=== PATIENT | female | born 1990 | race Caucasian/White ===

== ENCOUNTER 2017-07-20 23:15 | Emergency (ER) | payer MEDICAID ==
--- OUTSIDE RECORDS SUMMARY | 2017-07-20 23:17 | XMS REPORT ---
:1990 Author Organization [facility] Address [address] [place] [address] [address] [place] [address] Care Team Providers Name Role Phone Kiara MARTINES Unavailable Unavailable Problems This patient has no known problems. Allergies, Adverse Reactions, Alerts This patient has no known allergies or adverse reactions. Medications This patient has no known medications. Results Test Description Test Time Test Comments Text Results Atomic Results Result Comments HIV-1 ANTIGEN WITH HIV-1/2 ANTIBODY 2017-02-03 16:26:00 Test Item Value Reference Range Comments HIV-1 ANTIGEN WITH HIV 1\T\2 ANTIBODY (2) (BEAKER) (test Nonreactive Nonreactive eszj=3661) BASIC METABOLIC [id number] 06:30:00 Test Item Value Reference Range Comments SODIUM (BEAKER) (test 139 meq/L 136-145 qkeh=293) POTASSIUM (BEAKER) (test 3.8 meq/L 3.5-5.1 tpdw=449) CHLORIDE (BEAKER) (test 107 meq/L 98-107 bwae=153) CO2 (BEAKER) (test 26 meq/L 22-29 dxfj=257) BLOOD UREA NITROGEN 11 mg/dL 7-21 (BEAKER) (test gjuf=965) CREATININE (BEAKER) (test 0.65 mg/dL 0.57-1.25 itex=551) GLUCOSE RANDOM (BEAKER) 98 mg/dL 70-105 (test sjch=559) CALCIUM (BEAKER) (test 8.7 mg/dL 8.4-10.2 tqht=981) EGFR (BEAKER) (test mL/min/1.73 sq m INSUFFICIENT CLINICAL DATA nhds=7252) TO CALCULATE ESTIMATED GFR. [id number] 06:19:00 Test Item Value Reference Range Comments PHOSPHORUS (BEAKER) (test tovn=105) 1.9 mg/dL 2.3-4.7 [id number] 06:19:00 Test Item Value Reference Range Comments MAGNESIUM (BEAKER) (test ztvl=773) 1.8 mg/dL 1.6-2.6 HEPATIC FUNCTION [id number] 06:19:00 Test Item Value Reference Range Comments TOTAL PROTEIN (BEAKER) (test mvnq=221) 6.2 gm/dL 6.0-8.3 ALBUMIN (BEAKER) (test cpgh=9369) 3.6 g/dL 3.5-5.0 BILIRUBIN TOTAL (BEAKER) (test akjf=074) 0.7 mg/dL 0.2-1.2 BILIRUBIN DIRECT (BEAKER) (test eorv=859) 0.3 mg/dL 0.1-0.5 ALKALINE PHOSPHATASE (BEAKER) (test ajau=982) 93 U/L 40-150 AST (SGOT) (BEAKER) (test ffzy=256) 10 U/L 5-34 ALT (SGPT) (BEAKER) (test ocuy=325) 7 U/L 6-55 CBC W/PLT COUNT & AUTO [id number] 06:11:00 Test Item Value Reference Range Comments WHITE BLOOD CELL COUNT (BEAKER) (test vyhj=822) 6.9 K/ L 3.5-10.5 RED BLOOD CELL COUNT (BEAKER) (test pxar=686) 3.92 M/ L 3.93-5.22 HEMOGLOBIN (BEAKER) (test moby=587) 11.9 GM/DL 11.2-15.7 HEMATOCRIT (BEAKER) (test ccnp=423) 35.7 % 34.1-44.9 MEAN CORPUSCULAR VOLUME (BEAKER) (test ajhg=575) 91.1 fL 79.4-94.8 MEAN CORPUSCULAR HEMOGLOBIN (BEAKER) (test 30.4 pg 25.6-32.2 eskm=338) MEAN CORPUSCULAR HEMOGLOBIN CONC (BEAKER) (test 33.3 GM/DL 32.2-35.5 epah=989) RED CELL DISTRIBUTION WIDTH (BEAKER) (test 12.3 % 11.7-14.4 udzc=989) PLATELET COUNT (BEAKER) (test zaqw=165) 204 K/CU MM 150-450 MEAN PLATELET VOLUME (BEAKER) (test rohf=682) 11.2 fL 9.4-12.3 NUCLEATED RED BLOOD CELLS (BEAKER) (test 0 /100 WBC 0-0 qxje=950) NEUTROPHILS RELATIVE PERCENT (BEAKER) (test 72 % lscp=037) LYMPHOCYTES RELATIVE PERCENT (BEAKER) (test 21 % oezw=447) MONOCYTES RELATIVE PERCENT (BEAKER) (test 6 % upzs=986) EOSINOPHILS RELATIVE PERCENT (BEAKER) (test 1 % pvpi=519) BASOPHILS RELATIVE PERCENT (BEAKER) (test 0 % swmq=090) NEUTROPHILS ABSOLUTE COUNT (BEAKER) (test 5.00 K/ L 1.56-6.13 juou=201) LYMPHOCYTES ABSOLUTE COUNT (BEAKER) (test 1.44 K/ L 1.18-3.74 yvgv=593) MONOCYTES ABSOLUTE COUNT (BEAKER) (test 0.39 K/ L 0.24-0.36 pdtm=773) EOSINOPHILS ABSOLUTE COUNT (BEAKER) (test 0.07 K/ L 0.04-0.36 ukik=550) BASOPHILS ABSOLUTE COUNT (BEAKER) (test 0.02 K/ L 0.01-0.08 kydn=047) IMMATURE GRANULOCYTES-RELATIVE PERCENT (BEAKER) 0 % 0-1 (test auvm=2025) BASIC METABOLIC [id number] 10:11:00 Test Item Value Reference Range Comments SODIUM (BEAKER) (test 136 meq/L 136-145 nyto=276) POTASSIUM (BEAKER) (test 3.2 meq/L 3.5-5.1 rcrw=153) CHLORIDE (BEAKER) (test 107 meq/L 98-107 ymgv=578) CO2 (BEAKER) (test 25 meq/L 22-29 qrvo=390) BLOOD UREA NITROGEN 7 mg/dL 7-21 (BEAKER) (test rwih=818) CREATININE (BEAKER) (test 0.62 mg/dL 0.57-1.25 dzbf=874) GLUCOSE RANDOM (BEAKER) 106 mg/dL 70-105 (test hjci=067) CALCIUM (BEAKER) (test 8.9 mg/dL 8.4-10.2 keqi=872) EGFR (BEAKER) (test mL/min/1.73 sq m INSUFFICIENT CLINICAL DATA iuct=0114) TO CALCULATE ESTIMATED GFR. [id number] 09:56:00 Test Item Value Reference Range Comments PHOSPHORUS (BEAKER) (test zlna=500) 1.6 mg/dL 2.3-4.7 [id number] 09:56:00 Test Item Value Reference Range Comments MAGNESIUM (BEAKER) (test huad=483) 2.0 mg/dL 1.6-2.6 HEPATIC FUNCTION [id number] 09:56:00 Test Item Value Reference Range Comments TOTAL PROTEIN (BEAKER) (test fpok=037) 6.3 gm/dL 6.0-8.3 ALBUMIN (BEAKER) (test fdds=0182) 3.7 g/dL 3.5-5.0 BILIRUBIN TOTAL (BEAKER) (test bcej=237) 1.4 mg/dL 0.2-1.2 BILIRUBIN DIRECT (BEAKER) (test iztq=667) 0.6 mg/dL 0.1-0.5 ALKALINE PHOSPHATASE (BEAKER) (test ixzw=618) 97 U/L 40-150 AST (SGOT) (BEAKER) (test oixh=257) 10 U/L 5-34 ALT (SGPT) (BEAKER) (test moty=950) 8 U/L 6-55 CBC W/PLT COUNT & AUTO [id number] 09:53:00 Test Item Value Reference Range Comments WHITE BLOOD CELL COUNT (BEAKER) (test jhrw=728) 9.0 K/ L 3.5-10.5 RED BLOOD CELL COUNT (BEAKER) (test bein=586) 3.90 M/ L 3.93-5.22 HEMOGLOBIN (BEAKER) (test rqih=942) 11.8 GM/DL 11.2-15.7 HEMATOCRIT (BEAKER) (test sdgn=481) 35.5 % 34.1-44.9 MEAN CORPUSCULAR VOLUME (BEAKER) (test gzeg=950) 91.0 fL 79.4-94.8 MEAN CORPUSCULAR HEMOGLOBIN (BEAKER) (test 30.3 pg 25.6-32.2 nonf=754) MEAN CORPUSCULAR HEMOGLOBIN CONC (BEAKER) (test 33.2 GM/DL 32.2-35.5 hcyk=685) RED CELL DISTRIBUTION WIDTH (BEAKER) (test 12.0 % 11.7-14.4 jvmt=912) PLATELET COUNT (BEAKER) (test zzua=314) 212 K/CU MM 150-450 MEAN PLATELET VOLUME (BEAKER) (test drsp=499) 10.8 fL 9.4-12.3 NUCLEATED RED BLOOD CELLS (BEAKER) (test 0 /100 WBC 0-0 okkb=870) NEUTROPHILS RELATIVE PERCENT (BEAKER) (test 69 % paht=897) LYMPHOCYTES RELATIVE PERCENT (BEAKER) (test 24 % ytpj=910) MONOCYTES RELATIVE PERCENT (BEAKER) (test 5 % sywd=585) EOSINOPHILS RELATIVE PERCENT (BEAKER) (test 1 % qeti=629) BASOPHILS RELATIVE PERCENT (BEAKER) (test 0 % leve=381) NEUTROPHILS ABSOLUTE COUNT (BEAKER) (test 6.21 K/ L 1.56-6.13 gzpu=530) LYMPHOCYTES ABSOLUTE COUNT (BEAKER) (test 2.19 K/ L 1.18-3.74 hdgj=443) MONOCYTES ABSOLUTE COUNT (BEAKER) (test 0.49 K/ L 0.24-0.36 yrbd=782) EOSINOPHILS ABSOLUTE COUNT (BEAKER) (test 0.08 K/ L 0.04-0.36 xpff=139) BASOPHILS ABSOLUTE COUNT (BEAKER) (test 0.03 K/ L 0.01-0.08 kurd=347) IMMATURE GRANULOCYTES-RELATIVE PERCENT (BEAKER) 0 % 0-1 (test dakm=9586)
--- NOTE | 2017-07-20 23:48 | EDPHYS ---
Physician Documentation [facility] Name: Elle Man Age: 27 yrs Sex: Female : 1990 Arrival Date: 07/20/2017 Time: 23:16 Bed 19 Private MD: ED Physician Ashish Naik HPI: 07/20 23:42 This 27 yrs old Female presents to ER via Ambulatory with complaints of Sore pkl Throat. 23:42 The patient presents with sore throat. The patient describes throat pain as constant. pkl Onset: The symptoms/episode began/occurred 2 day(s) ago. The patient has been recently seen by a physician: in [facility] ER, yesterday. Patient said she is not better. 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 - Social history:: Smoking status: Patient/guardian denies using tobacco. ROS: 23:42 Eyes: Negative for injury, pain, redness, and discharge. pkl 23:42 ENT: Positive for sore throat. 23:42 Neck: Negative for stiffness. 23:42 Cardiovascular: Negative for chest pain. 23:42 Respiratory: Negative for cough, shortness of breath. 23:42 Abdomen/GI: Negative for abdominal pain, nausea, vomiting, and diarrhea. 23:42 Back: Negative for acute changes. 23:42 : Negative for urinary symptoms. 23:42 MS/extremity: Negative for acute changes. 23:42 Skin: Negative for rash. 23:42 Neuro: Negative for altered mental status. Exam: 23:42 Head/Face: Normocephalic, atraumatic. Eyes: Pupils equal round and reactive to light, pkl extra-ocular motions intact. Lids and lashes normal. Conjunctiva and sclera are non-icteric and not injected. Cornea within normal limits. Periorbital areas with no swelling, redness, or edema. 23:42 ENT: Posterior pharynx: Tonsils: bilaterally enlarged, with erythema. 23:42 Neck: Exam negative for acute changes. 23:42 Chest/axilla: Exam negative for acute changes. 23:42 Cardiovascular: Rate: normal, Rhythm: regular. 23:42 Respiratory: the patient does not display signs of respiratory distress, Respirations: normal, Breath sounds: are clear throughout. 23:42 Abdomen/GI: Exam negative for acute changes. 23:42 Back: Exam negative for acute changes. 23:42 : Exam negative for acute changes. 23:42 Musculoskeletal/extremity: Exam is negative for acute changes. 23:42 Skin: Exam negative for rash. 23:42 Neuro: Orientation: is normal, Mentation: is normal, Cranial nerves: grossly normal, Motor: is normal. Vital Signs: 23:27 BP 131 / 85; Pulse 75; Resp 18; Temp 98.1(O); Pulse Ox 97% on R/A; Weight 119.29 kg (R); Height 5 ft. 11 in. (180.34 cm) (R); Pain 10/10; 07/21 00:09 BP 113 / 69; Pulse 75; Resp 18; Pulse Ox 96% on R/A; wh 07/20 23:27 Body Mass Index 36.68 (119.29 kg, 180.34 cm) MDM: 07/20 23:35 Patient medically screened. pkl 23:46 Data reviewed: vital signs, nurses notes. pkl Administered Medications: 23:55 Drug: Rocephin (cefTRIAXone) 1 grams Route: IM; Site: right gluteus; 07/21 00:09 Follow up: Response: No adverse reaction Disposition: 07/20/17 23:47 Discharged to Home. Impression: Acute tonsillitis. - Condition is Stable. - Prescriptions for Ultram 50 mg Oral Tablet - take 1 tablet by ORAL route every 8 hours As needed; 15 tablet. - Medication Reconciliation Form, Thank You Letter, Antibiotic Education, Prescription Opioid Use form. - Follow up: Debo Navarro MD; When: 2 - 3 days; Reason: Re-evaluation by your physician. - Problem is new. - Symptoms are unchanged. Signatures: Ashish Naik MD MD pkl Tawana Horta RN RN Kelby Nieto
--- NOTE | 2017-07-20 23:48 | ER ---
Nurse's Notes [facility] Name: Elle Man Age: 27 yrs Sex: Female : 1990 Arrival Date: 07/20/2017 Time: 23:16 Bed 19 Private MD: Diagnosis: Acute tonsillitis Presentation: 07/20 23:24 Presenting complaint: Patient states: that yesterday was seen at [facility] in [place] for sore throat. Was told she had swollen tonsils with pus on them but negative strep. Given Amoxicillin. Pain is worse today to throat. She is unable to swallow and it hurts to talk. Also has fever. Transition of care: patient was not received from another setting of care. Onset of symptoms was July 18, 2017. Care prior to arrival: Medication(s) given: Tylenol, last at 2200. 23:24 Acuity: LAYTON 5 23:24 Method Of Arrival: Ambulatory Triage Assessment: 23:30 General: Appears comfortable, Behavior is calm, cooperative, appropriate for age. Pain: fc Complains of pain in throat Pain currently is 10 out of 10 on a pain scale. Quality of pain is described as burning, dull, Pain began 2-3 days ago. Is continuous, Aggravated by drinking. EENT: Throat is reddened has patchy exudate has enlarged tonsils on right on left Reports difficulty swallowing. Neuro: Level of Consciousness is awake, alert, obeys commands, Oriented to person, place, time, situation. Cardiovascular: No deficits noted. Respiratory: No deficits noted. GI: No deficits noted. : No deficits noted. Derm: Skin is pink, warm \T\ dry. Musculoskeletal: Circulation, motion, and sensation intact. Capillary refill < 3 seconds, Range of motion: intact in all extremities. 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 - Social history:: Smoking status: Patient/guardian denies using tobacco. Screenin/27 00:02 Abuse screen: Denies threats or abuse. Nutritional screening: No deficits noted. wh Tuberculosis screening: No symptoms or risk factors identified. Fall Risk None identified. Assessment: 07/20 23:58 General: Appears in no apparent distress. comfortable, Behavior is calm, cooperative, wh appropriate for age. Pain: Denies pain. Neuro: Level of Consciousness is awake, alert, obeys commands, Oriented to person, place, time, situation. Cardiovascular: Denies chest pain, Heart tones S1 S2 Capillary refill < 3 seconds. Respiratory: Airway is patent Respiratory effort is even, unlabored, Respiratory pattern is regular, symmetrical, Breath sounds are clear bilaterally. GI: Abdomen is round non-distended, Abd is soft and non tender X 4 quads. : No signs and/or symptoms were reported regarding the genitourinary system. EENT: Throat is pink Pt C/O sore throat since a few days accompanied with fever, was already seen in another facility and started on oral antibiotics. Derm: Skin is intact, is healthy with good turgor, Skin is pink, warm \T\ dry. Musculoskeletal: Range of motion: intact in all extremities. Vital Signs: 23: BP 131 / 85; Pulse 75; Resp 18; Temp 98.1(O); Pulse Ox 97% on R/A; Weight 119.29 kg fc (R); Height 5 ft. 11 in. (180.34 cm) (R); Pain 10/10; 07/21 00:09 BP 113 / 69; Pulse 75; Resp 18; Pulse Ox 96% on R/A; wh 07/20 23:27 Body Mass Index 36.68 (119.29 kg, 180.34 cm) ED Course: 07/20 23:16 Patient arrived in ED. am2 23:26 Triage completed. fc 23:27 Arm band placed on Patient placed in an exam room, on a stretcher. fc 23:34 Ashish Naik MD is Attending Physician. pkl 23:44 Kelby Nieto is Primary Nurse. wh 23:46 Debo Navarro MD is Referral Physician. pkl 07/21 00:02 Patient has correct armband on for positive identification. Patient has correct armband wh on for positive identification. Bed in low position. Call light in reach. Side rails up X 1. Pulse ox on. NIBP on. 00:02 No provider procedures requiring assistance completed. Patient did not have IV access wh during this emergency room visit. Administered Medications: 07/20 23:55 Drug: Rocephin (cefTRIAXone) 1 grams Route: IM; Site: right gluteus; 07/21 00:09 Follow up: Response: No adverse reaction Outcome: 07/20 23:47 Discharge ordered by . coleman 07/21 00:02 Discharged to home ambulatory. Condition: good Discharge instructions given to patient, Instructed on discharge instructions, follow up and referral plans. no drinking with medication, no driving heavy equipment, medication usage, POC Acute Tonsillitis Demonstrated understanding of instructions, follow-up care, medications, POC Prescriptions given X 1. 00:10 Patient left the ED. Signatures: Ashish Naik MD MD pkl Chretien, Felicia, RN RN Kathleen Vásquez Winsy
[2017-07-21] MEDS ORDERED: CEFTRIAXONE 1000 MG/VIAL ONE (00:06)
[2017-07-21 00:32] VITALS: TEMP 98.1
[2017-07-21 00:34] VITALS: BP 113/69; O2SAT 96
== END 2017-07-21 00:10 | disposition home or self-care (01) ==
LOC: ER 23:15
DX: J03.90 Acute tonsillitis, unspecified
CPT/HCPCS: 96372; 99283

== ENCOUNTER 2017-11-02 11:02 | Inpatient (IN) | payer MEDICAID ==
--- OUTSIDE RECORDS SUMMARY | 2017-11-02 11:05 | XMS REPORT | Clinical Summary ---
:1990 Author Organization [facility] Address [address] [place] [address] Phone Care Team Providers Name Role Phone Unavailable Primary Care Provider Unavailable Allergies No Known Allergies Current Medications Prescription Sig. Disp. Refills Start Date End Date Status acetaminophen Take 2 30 tablet 0 02/04/2017 01/30/2018 Active (TYLENOL) 325 MG tablets (650 tablet mg total) by mouth every 4 (four) hours as needed for up to 360 days. acetaminophen Take 2 30 tablet 0 02/04/2017 02/04/2017 Discontinued (TYLENOL) 325 MG tablets (650 tablet mg total) by mouth every 4 (four) hours as needed for up to 360 days. ondansetron Take 1 tablet 20 tablet 0 02/04/2017 02/04/2017 Discontinued (ZOFRAN-ODT) 4 MG (4 mg total) disintegrating by mouth tablet every 8 (eight) hours as needed for up to 7 days. amitriptyline Take 1 tablet 30 tablet 0 02/04/2017 02/04/2017 Discontinued (ELAVIL) 25 MG (25 mg total) tablet by mouth nightly for 30 days. ondansetron Take 1 tablet 20 tablet 0 02/04/2017 02/11/2017 (ZOFRAN-ODT) 4 MG (4 mg total) disintegrating by mouth tablet every 8 (eight) hours as needed for up to 7 days. amitriptyline Take 1 tablet 30 tablet 0 02/04/2017 03/06/2017 (ELAVIL) 25 MG (25 mg total) tablet by mouth nightly for 30 days. Active Problems Problem Noted Date Hypokalemia 02/03/2017 Headache 02/03/2017 Elevated LFTs 02/03/2017 Aseptic meningitis 02/01/2017 Encounters Date Type Specialty Care Team Description 02/01/2017 - Hospital General Internal Mona Doherty, Aseptic 02/04/2017 Encounter Medicine meningitis;Elevated Mansoor Ordaz LFTs;Other headache MD Jona syndrome;Hypokalemi Bethany, Jae Castro MD after 11/01/2016 Social History Tobacco Use Types Packs/Day Years Used Date Never Smoker Smokeless Tobacco: Never Used Sex Assigned at Date Recorded Not on file Last Filed Vital Signs Vital Sign Reading Time Taken Blood Pressure 127/72 02/04/2017 11:52 AM CDT Pulse 90 02/04/2017 11:52 AM CDT Temperature 36 C (96.8 F) 02/04/2017 11:52 AM CDT Respiratory Rate 18 02/04/2017 11:52 AM CDT Oxygen Saturation 96% 02/04/2017 11:52 AM CDT Inhaled Oxygen Concentration - - Weight 115.1 kg (253 lb 11.2 oz) 02/01/2017 11:34 PM CDT Height 180.3 cm (5' 11") 02/01/2017 11:34 PM CDT Body Mass Index 35.38 02/01/2017 11:34 PM CDT Plan of Treatment Not on file Results HIV-1 Antigen with HIV-1/2 Antibody (02/03/2017 1:57 PM) Component Value Ref Range HIV-1 Antigen with HIV 1&2 Antibody Nonreactive Nonreactive Specimen Performing Laboratory Blood - Arm, Left [facility] [address] [place] [id number] CBC with platelet count + automated diff (02/03/2017 5:12 AM)Only the most recent of2 resultswithin the time period is included. Component Value Ref Range WBC 6.9 3.5 - 10.5 K/L RBC 3.92 (L) 3.93 - 5.22 M/L Hemoglobin 11.9 11.2 - 15.7 GM/DL Hematocrit 35.7 34.1 - 44.9 % MCV 91.1 79.4 - 94.8 fL MCH 30.4 25.6 - 32.2 pg MCHC 33.3 32.2 - 35.5 GM/DL RDW 12.3 11.7 - 14.4 % Platelets 204 150 - 450 K/CU MM MPV 11.2 9.4 - 12.3 fL nRBC 0 0 - 0 /100 WBC % Neutros 72 % % Lymphs 21 % % Monos 6 % % Eos 1 % % Baso 0 % # Neutros 5.00 1.56 - 6.13 K/L # Lymphs 1.44 1.18 - 3.74 K/L # Monos 0.39 (H) 0.24 - 0.36 K/L # Eos 0.07 0.04 - 0.36 K/L # Baso 0.02 0.01 - 0.08 K/L Immature Granulocytes-Relative 0 0 - 1 % Specimen Performing Laboratory Blood - Arm, [address] [address] CBC with platelet count + automated diff (02/03/2017 5:12 AM)Only the most recent of2 resultswithin the time period is included. Specimen Performing Laboratory Blood Narrative The following orders were created for panel order CBC with platelet count + automated diff. Procedure Abnormality Status --------- ------ CBC with platelet count ...[[id number]]AbnormalFinal result Please view results for these tests on the individual orders. Phosphorus (02/03/2017 5:12 AM)Only the most recent of2 resultswithin the time period is included. Component Value Ref Range Phosphorus 1.9 (L) 2.3 - 4.7 mg/dL Specimen Performing Laboratory Blood - Arm, [address] [address] Magnesium (02/03/2017 5:12 AM)Only the most recent of2 resultswithin the time period is included. Component Value Ref Range Magnesium 1.8 1.6 - 2.6 mg/dL Specimen Performing Laboratory Blood - Arm, [address] [address] Hepatic function panel (02/03/2017 5:12 AM)Only the most recent of2 resultswithin the time period is included. Component Value Ref Range Protein, Total 6.2 6.0 - 8.3 gm/dL Albumin 3.6 3.5 - 5.0 g/dL Total Bilirubin 0.7 0.2 - 1.2 mg/dL Bilirubin, Direct 0.3 0.1 - 0.5 mg/dL Alkaline Phosphatase 93 40 - 150 U/L AST 10 5 - 34 U/L ALT 7 6 - 55 U/L Specimen Performing Laboratory Blood - Arm, [address] [address] Basic metabolic panel (02/03/2017 5:12 AM)Only the most recent of2 resultswithin the time period is included. Component Value Ref Range Sodium 139 136 - 145 meq/L Potassium 3.8 3.5 - 5.1 meq/L Chloride 107 98 - 107 meq/L CO2 26 22 - 29 meq/L BUN 11 7 - 21 mg/dL Creatinine 0.65 0.57 - 1.25 mg/dL Glucose 98 70 - 105 mg/dL Calcium 8.7 8.4 - 10.2 mg/dL EGFR Comment: INSUFFICIENT CLINICAL DATA TO CALCULATE mL/min/1.73 sq m ESTIMATED GFR. Specimen Performing Laboratory Blood - Arm, [address] [address] after 11/01/2016
--- OUTSIDE RECORDS SUMMARY | 2017-11-02 11:05 | XMS REPORT ---
:1990 Author Organization [facility] Address [address] [place] [place] [id number] Care Team Providers Name Role Phone BLAYNE MARTINES Unavailable Unavailable Problems This patient has [...] 1\T\2 ANTIBODY (2) (BEAKER) (test Nonreactive Nonreactive jamk=9240) BASIC METABOLIC [id number] 06:30:00 Test Item Value Reference Range Comments SODIUM (BEAKER) (test 139 meq/L 136-145 bqlp=106) POTASSIUM (BEAKER) (test 3.8 meq/L 3.5-5.1 yivl=017) CHLORIDE (BEAKER) (test 107 meq/L 98-107 itfy=364) CO2 (BEAKER) (test 26 meq/L 22-29 dhxo=941) BLOOD UREA NITROGEN 11 mg/dL 7-21 (BEAKER) (test xktw=872) CREATININE (BEAKER) (test 0.65 mg/dL 0.57-1.25 taem=022) GLUCOSE RANDOM (BEAKER) 98 mg/dL 70-105 (test jpbc=529) CALCIUM (BEAKER) (test 8.7 mg/dL 8.4-10.2 zbyd=856) EGFR (BEAKER) (test mL/min/1.73 sq m INSUFFICIENT CLINICAL DATA omtt=9295) TO CALCULATE ESTIMATED GFR. [id number] 06:19:00 Test Item Value Reference Range Comments PHOSPHORUS (BEAKER) (test ucdj=773) 1.9 mg/dL 2.3-4.7 [id number] 06:19:00 Test Item Value Reference Range Comments MAGNESIUM (BEAKER) (test agyf=401) 1.8 mg/dL 1.6-2.6 HEPATIC FUNCTION [id number] 06:19:00 Test Item Value Reference Range Comments TOTAL PROTEIN (BEAKER) (test gkry=146) 6.2 gm/dL 6.0-8.3 ALBUMIN (BEAKER) (test myin=0772) 3.6 g/dL 3.5-5.0 BILIRUBIN TOTAL (BEAKER) (test qtal=287) 0.7 mg/dL 0.2-1.2 BILIRUBIN DIRECT (BEAKER) (test galy=729) 0.3 mg/dL 0.1-0.5 ALKALINE PHOSPHATASE (BEAKER) (test czmg=938) 93 U/L 40-150 AST (SGOT) (BEAKER) (test rhrc=860) 10 U/L 5-34 ALT (SGPT) (BEAKER) (test kfji=151) 7 U/L 6-55 CBC W/PLT COUNT & AUTO [id number] 06:11:00 Test Item Value Reference Range Comments WHITE BLOOD CELL COUNT (BEAKER) (test eieh=925) 6.9 K/ L 3.5-10.5 RED BLOOD CELL COUNT (BEAKER) (test xwjo=242) 3.92 M/ L 3.93-5.22 HEMOGLOBIN (BEAKER) (test wnkf=199) 11.9 GM/DL 11.2-15.7 HEMATOCRIT (BEAKER) (test ivxt=990) 35.7 % 34.1-44.9 MEAN CORPUSCULAR VOLUME (BEAKER) (test cwjo=071) 91.1 fL 79.4-94.8 MEAN CORPUSCULAR HEMOGLOBIN (BEAKER) (test 30.4 pg 25.6-32.2 vhkt=192) MEAN CORPUSCULAR HEMOGLOBIN CONC (BEAKER) (test 33.3 GM/DL 32.2-35.5 sdra=321) RED CELL DISTRIBUTION WIDTH (BEAKER) (test 12.3 % 11.7-14.4 ugse=472) PLATELET COUNT (BEAKER) (test rqrn=809) 204 K/CU MM 150-450 MEAN PLATELET VOLUME (BEAKER) (test lonl=283) 11.2 fL 9.4-12.3 NUCLEATED RED BLOOD CELLS (BEAKER) (test 0 /100 WBC 0-0 dhig=196) NEUTROPHILS RELATIVE PERCENT (BEAKER) (test 72 % lqly=992) LYMPHOCYTES RELATIVE PERCENT (BEAKER) (test 21 % dazl=943) MONOCYTES RELATIVE PERCENT (BEAKER) (test 6 % kcbz=126) EOSINOPHILS RELATIVE PERCENT (BEAKER) (test 1 % nxed=135) BASOPHILS RELATIVE PERCENT (BEAKER) (test 0 % lvnt=758) NEUTROPHILS ABSOLUTE COUNT (BEAKER) (test 5.00 K/ L 1.56-6.13 fsqu=419) LYMPHOCYTES ABSOLUTE COUNT (BEAKER) (test 1.44 K/ L 1.18-3.74 rnpi=081) MONOCYTES ABSOLUTE COUNT (BEAKER) (test 0.39 K/ L 0.24-0.36 rbsw=041) EOSINOPHILS ABSOLUTE COUNT (BEAKER) (test 0.07 K/ L 0.04-0.36 vkss=588) BASOPHILS ABSOLUTE COUNT (BEAKER) (test 0.02 K/ L 0.01-0.08 oenj=903) IMMATURE GRANULOCYTES-RELATIVE PERCENT (BEAKER) 0 % 0-1 (test staj=9353) BASIC METABOLIC [id number] 10:11:00 Test Item Value Reference Range Comments SODIUM (BEAKER) (test 136 meq/L 136-145 ochj=120) POTASSIUM (BEAKER) (test 3.2 meq/L 3.5-5.1 irdx=230) CHLORIDE (BEAKER) (test 107 meq/L 98-107 xtbs=703) CO2 (BEAKER) (test 25 meq/L 22-29 tqvy=193) BLOOD UREA NITROGEN 7 mg/dL 7-21 (BEAKER) (test mjjg=399) CREATININE (BEAKER) (test 0.62 mg/dL 0.57-1.25 lgtk=134) GLUCOSE RANDOM (BEAKER) 106 mg/dL 70-105 (test lcan=525) CALCIUM (BEAKER) (test 8.9 mg/dL 8.4-10.2 ouzj=301) EGFR (BEAKER) (test mL/min/1.73 sq m INSUFFICIENT CLINICAL DATA evlu=2654) TO CALCULATE ESTIMATED GFR. [id number] 09:56:00 Test Item Value Reference Range Comments PHOSPHORUS (BEAKER) (test afli=054) 1.6 mg/dL 2.3-4.7 [id number] 09:56:00 Test Item Value Reference Range Comments MAGNESIUM (BEAKER) (test brnu=992) 2.0 mg/dL 1.6-2.6 HEPATIC FUNCTION [id number] 09:56:00 Test Item Value Reference Range Comments TOTAL PROTEIN (BEAKER) (test njtv=937) 6.3 gm/dL 6.0-8.3 ALBUMIN (BEAKER) (test smcw=9969) 3.7 g/dL 3.5-5.0 BILIRUBIN TOTAL (BEAKER) (test qmlt=459) 1.4 mg/dL 0.2-1.2 BILIRUBIN DIRECT (BEAKER) (test rzlb=764) 0.6 mg/dL 0.1-0.5 ALKALINE PHOSPHATASE (BEAKER) (test kkjc=549) 97 U/L 40-150 AST (SGOT) (BEAKER) (test vjsz=324) 10 U/L 5-34 ALT (SGPT) (BEAKER) (test cfaf=531) 8 U/L 6-55 CBC W/PLT COUNT & AUTO [id number] 09:53:00 Test Item Value Reference Range Comments WHITE BLOOD CELL COUNT (BEAKER) (test erlh=513) 9.0 K/ L 3.5-10.5 RED BLOOD CELL COUNT (BEAKER) (test vnvw=363) 3.90 M/ L 3.93-5.22 HEMOGLOBIN (BEAKER) (test wtod=020) 11.8 GM/DL 11.2-15.7 HEMATOCRIT (BEAKER) (test qdem=335) 35.5 % 34.1-44.9 MEAN CORPUSCULAR VOLUME (BEAKER) (test ttac=193) 91.0 fL 79.4-94.8 MEAN CORPUSCULAR HEMOGLOBIN (BEAKER) (test 30.3 pg 25.6-32.2 eicj=814) MEAN CORPUSCULAR HEMOGLOBIN CONC (BEAKER) (test 33.2 GM/DL 32.2-35.5 loua=363) RED CELL DISTRIBUTION WIDTH (BEAKER) (test 12.0 % 11.7-14.4 mrvd=444) PLATELET COUNT (BEAKER) (test hfux=229) 212 K/CU MM 150-450 MEAN PLATELET VOLUME (BEAKER) (test yhzp=043) 10.8 fL 9.4-12.3 NUCLEATED RED BLOOD CELLS (BEAKER) (test 0 /100 WBC 0-0 wehg=706) NEUTROPHILS RELATIVE PERCENT (BEAKER) (test 69 % jvvu=380) LYMPHOCYTES RELATIVE PERCENT (BEAKER) (test 24 % mnqi=033) MONOCYTES RELATIVE PERCENT (BEAKER) (test 5 % cdnu=751) EOSINOPHILS RELATIVE PERCENT (BEAKER) (test 1 % umvt=297) BASOPHILS RELATIVE PERCENT (BEAKER) (test 0 % rkym=525) NEUTROPHILS ABSOLUTE COUNT (BEAKER) (test 6.21 K/ L 1.56-6.13 hcpi=241) LYMPHOCYTES ABSOLUTE COUNT (BEAKER) (test 2.19 K/ L 1.18-3.74 ytve=351) MONOCYTES ABSOLUTE COUNT (BEAKER) (test 0.49 K/ L 0.24-0.36 otau=808) EOSINOPHILS ABSOLUTE COUNT (BEAKER) (test 0.08 K/ L 0.04-0.36 mvjw=891) BASOPHILS ABSOLUTE COUNT (BEAKER) (test 0.03 K/ L 0.01-0.08 dwfz=545) IMMATURE GRANULOCYTES-RELATIVE PERCENT (BEAKER) 0 % 0-1 (test wpal=5375)
--- NOTE | 2017-11-02 11:50 | RAD REPORT ---
EXAM DESCRIPTION: CT - Head Brain Wo Cont - 11/02/2017 11:43 am CLINICAL HISTORY: HEADACHE COMPARISON: Head angio dated 02/01/2017; Head Brain Wo Cont dated 02/01/2017 TECHNIQUE: All CT scans are performed using dose optimization technique as appropriate and may inclu de automated exposure control or mA/KV adjustment according to patient size. FINDINGS: No intracranial hemorrhage, hydrocephalus or extra-axial fluid collection.No areas of brai n edema or evidence of midline shift. The paranasal sinuses and mastoids are clear. The calvarium is intact. IMPRESSION: No acute intracranial abnormality.
[2017-11-02] MEDS ORDERED: MORPHINE 4 MG/ML SYR ONE (12:10)
[2017-11-02] MEDS ORDERED: ONDANSETRON 4 MG/2 ML VIAL ONE ×2 (12:10→18:05)
[2017-11-02] MEDS ORDERED: NA CHLORIDE 0.9% 1,000 ML ONE ×3 (12:10→18:51)
[2017-11-02] MEDS ORDERED: CEFTRIAXONE 1000 MG/VIAL ONE (12:10)
[2017-11-02] MEDS ORDERED: NA CHLORIDE 0.9% 50 ML IV ONE (12:10)
[2017-11-02 12:52] LABS: Absolute Lymphocytes (CBC) 1.7 K/uL (0.7-4.9); Absolute Monocytes 0.5 K/uL (0.1-1.3); Absolute Neutrophil 8.4 K/uL (1.8-8.0); Basophils % 0.4 % (0-1.3); Eosinophils % 0.7 % (0-4.4); Hematocrit 40.8 % (36.0-45.0); Lymphocytes % 15.6 % (15.3-44.8); MCV 90.9 fL (80-100); MPV 8.8 fL (7.6-11.3); Monocytes % 4.4 % (3.3-12.3); RBC Red Blood Cell Count 4.48 M/uL (3.86-4.86)
[2017-11-02 13:06] LABS: BUN Blood Urea Nitrogen 10 mg/dL (7-18); Bicarbonate 28 mmol/L (21-32); Glucose Level 95 mg/dL (74-106); Potassium 3.8 mmol/L (3.5-5.1); Sodium Level 141 mmol/L (136-145)
[2017-11-02] MEDS ORDERED: PROMETHAZINE 25 MG/ML VIAL ONE ×2 (13:35→13:43)
[2017-11-02] MEDS ORDERED: KETOROLAC 30 MG/ML INJ ONE (13:35)
[2017-11-02] MEDS ORDERED: LIDOCAINE 1% W/EPI 1:100,000 MDV 50 ML VIAL ONE (14:17)
[2017-11-02 16:16] LABS: CSF Glucose 41 mg/dL (40-70)
[2017-11-02 17:00] LABS: Appearance CLEAR (CLEAR); Body Fluid Source CSF; Body Fluid WBC 250 /mm^3; Color of fluid Colorless (COLORLESS); Fluid Total Volume 19 ml
[2017-11-02 17:01] LABS: Appearance CLEAR (CLEAR); Body Fluid Source CSF; Body Fluid WBC 275 /mm^3; Color of fluid Colorless (COLORLESS)
--- NOTE | 2017-11-02 17:38 | EDPHYS ---
Physician Documentation [facility] Name: Elle Man Age: 27 yrs Sex: Female : 1990 Arrival Date: 11/02/2017 Time: 11:05 Bed 26 Private MD: None, None ED Physician Torsten Sánchez HPI: 11/02 12:24 This 27 yrs old Female presents to ER via Ambulatory with complaints of kdr Headache, Stiff Neck. 12:24 The patient complains of pain to the top of head. The patient describes the headache as kdr aching, a pressure, throbbing. Onset: The symptoms/episode began/occurred yesterday, The patient states that she had a migraine COLMENARES yesterday and that she took some OTC meds without complete relief. She awoke about 04:30 this morning and said she couldn't take the pain any more. She went to [facility] and was given pain medication and muscle relaxers. She has continued to have pain and has now come here. She states it feels like when she was diagnosed with bacterial meningitis last year. She was transferred at that time to another facility and was an inpatient for 5-6 days. Associated signs and symptoms: Pertinent positives: nausea, neck stiffness, Photophobia Pertinent negatives: altered mental status, dizziness, malaise, paresthesias, rash, sinus congestion, sinus tenderness, vision loss, weakness. Severity of symptoms: At its worst the pain was moderate, in the emergency department the pain is unchanged. Headache History: The patient has had previous headaches and this one is similar to previous episodes, and this one is more severe than previous episodes. The patient has experienced a previous episode, last year. The patient has been recently seen by a physician: See prior note. TRAVEL COTA: 11:11 LMP 10/30/2017 sv Historical: - Allergies: 11:19 No Known Allergies; sv - PMHx: 11:19 Bacterial meningitis; sv - PSHx: 11:19 Appendectomy; ; D \T\ C; sv - Immunization history:: Adult Immunizations up to date. - Social history:: Smoking status: Patient/guardian denies using tobacco. - Ebola Screening: : No symptoms or risks identified at this time. ROS: 12:24 Constitutional: Negative for fever, chills, and weight loss, Eyes: Negative for injury, kdr pain, redness, and discharge, ENT: Negative for injury, pain, and discharge, Cardiovascular: Negative for chest pain, palpitations, and edema, Respiratory: Negative for shortness of breath, cough, wheezing, and pleuritic chest pain, Abdomen/GI: Negative for abdominal pain, nausea, vomiting, diarrhea, and constipation, Back: Negative for injury and pain, : Negative for injury, bleeding, discharge, and swelling, MS/Extremity: Negative for injury and deformity, Skin: Negative for injury, rash, and discoloration, Psych: Negative for depression, anxiety, suicide ideation, homicidal ideation, and hallucinations, Allergy/Immunology: Negative for hives, rash, and allergies, Endocrine: Negative for neck swelling, polydipsia, polyuria, polyphagia, and marked weight changes, Hematologic/Lymphatic: Negative for swollen nodes, abnormal bleeding, and unusual bruising. 12:24 Neck: Positive for pain with movement, pain at rest, stiffness, tenderness, bony tenderness, Negative for injury or acute deformity, mass, rash, stiffness, swollen nodes, tenderness, acute changes. 12:24 Neuro: Positive for Negative for altered mental status, dizziness, gait disturbance, headache, hearing loss, loss of consciousness, numbness, seizure activity, speech changes, syncope, near syncope, tingling, tinnitus, tremor, visual changes, weakness. Exam: 12:24 Constitutional: This is a well developed, well nourished patient who is awake, alert, kdr and in no acute distress. Head/Face: Normocephalic, atraumatic. Eyes: Pupils equal round and reactive to light, extra-ocular motions intact. Lids and lashes normal. Conjunctiva and sclera are non-icteric and not injected. Cornea within normal limits. Periorbital areas with no swelling, redness, or edema. Chest/axilla: Normal chest wall appearance and motion. Nontender with no deformity. No lesions are appreciated. Cardiovascular: Regular rate and rhythm with a normal S1 and S2. No gallops, murmurs, or rubs. Normal PMI, no JVD. No pulse deficits. Respiratory: Lungs have equal breath sounds bilaterally, clear to auscultation and percussion. No rales, rhonchi or wheezes noted. No increased work of breathing, no retractions or nasal flaring. Abdomen/GI: Soft, non-tender, with normal bowel sounds. No distension or tympany. No guarding or rebound. No evidence of tenderness throughout. Back: No spinal tenderness. No costovertebral tenderness. Full range of motion. Skin: Warm, dry with normal turgor. Normal color with no rashes, no lesions, and no evidence of cellulitis. MS/ Extremity: Pulses equal, no cyanosis. Neurovascular intact. Full, normal range of motion. Neuro: Awake and alert, GCS 15, oriented to person, place, time, and situation. Cranial nerves II-XII grossly intact. Motor strength 5/5 in all extremities. Sensory grossly intact. Cerebellar exam normal. Normal gait. Psych: Awake, alert, with orientation to person, place and time. Behavior, mood, and affect are within normal limits. 12:24 Neck: External neck: is normal, C-spine: no acute changes, ROM/movement: pain, that is mild, with flexion, limited range of motion, that is mild, Meningeal signs: Kernig's sign is negative, Brudzinski's sign is negative. Vital Signs: 11:11 BP 120 / 71; Pulse 91; Resp 20; Temp 98.7; Pulse Ox 98% ; Weight 117.93 kg; Height 5 sv ft. 11 in. (180.34 cm); Pain 10/10; 13:00 BP 114 / 72; Pulse 75; Resp 18; Pulse Ox 100% on R/A; mb3 14:45 BP 123 / 79; Pulse 75; Resp 18; Pulse Ox 100% on R/A; mb3 16:22 BP 121 / 76; Pulse 73; Resp 20; Pulse Ox 100% on R/A; mb3 11:11 Body Mass Index 36.26 (117.93 kg, 180.34 cm) sv MDM: 12:24 Data reviewed: vital signs, nurses notes, lab test result(s), radiologic studies. kdr Counseling: I had a detailed discussion with the patient and/or guardian regarding: the historical points, exam findings, and any diagnostic results supporting the discharge/admit diagnosis, lab results, radiology results. 17:37 Patient medically screened. kdr 11/02 11:27 Order name: CBC with Diff; Complete Time: 13:17 kdr 11/02 11:27 Order name: Chem 7; Complete Time: 13:17 kdr 11/02 11:27 Order name: Blood Culture Adult (2) kdr 11/02 11:27 Order name: Urine Culture kdr 11/02 15:49 Order name: CSF Bacterial Antigens (tube 1); Complete Time: 16:53 iw 11/02 15:49 Order name: Csf Culture iw 11/02 11:27 Order name: CT Head Brain wo Cont; Complete Time: 12:55 kdr 11/02 14:58 Order name: Lumbar Puncture For Dx; Complete Time: 11:45 EDMS 11/02 15:49 Order name: Fluid Cell Count,Body; Complete Time: 17:03 iw 11/02 15:49 Order name: Spinal Fluid Profile; Complete Time: 17:01 iw 11/02 11:27 Order name: Urine Dipstick-Ancillary (obtain specimen) kdr 11/02 11:52 Order name: Lumbar Puncture Consent [facility] 11/02 11:52 Order name: Lumbar Puncture Setup kdr Administered Medications: 12:55 Drug: morphine 4 mg Route: IVP; Site: left hand; mb3 13:45 Follow up: Response: No adverse reaction mb3 12:55 Drug: Zofran 4 mg Route: IVP; Site: left hand; mb3 13:45 Follow up: Response: No adverse reaction mb3 12:55 Drug: NS 0.9% 1000 ml Route: IV; Rate: 1 bolus; Site: left hand; mb3 14:59 Follow up: Response: No adverse reaction; IV Status: Completed infusion; IV Intake: mb3 1000ml 13:01 Drug: Rocephin - (cefTRIAXone) 1 grams Route: IVPB; Infused Over: 30 mins; Site: left mb3 hand; 13:45 Follow up: Response: No adverse reaction; IV Status: Completed infusion; IV Intake: [id number] 13:40 Drug: TORadol 30 mg Route: IVP; Site: left hand; mb3 14:59 Follow up: Response: No adverse reaction mb3 13:44 Drug: Phenergan 25 mg Route: IVP; Site: left hand; mb3 15:00 Follow up: Response: No adverse reaction mb3 14:50 Drug: NS 0.9% 1000 ml Route: IV; Rate: 1 bolus; Site: left antecubital; mb3 19:40 Follow up: Response: No adverse reaction; IV Status: Completed infusion; IV Intake: mb3 1000ml 18:08 Drug: fentaNYL (PF) 50 mcg Route: IVP; Site: left hand; mb3 19:40 Follow up: Response: No adverse reaction mb3 18:08 Drug: Zofran 4 mg Route: IVP; Site: left hand; mb3 19:41 Follow up: Response: No adverse reaction mb3 18:55 Drug: Reglan 10 mg Route: IVP; Site: left hand; mb3 19:41 Follow up: Response: No adverse reaction mb3 18:55 Drug: Decadron - Dexamethasone 10 mg Route: IVP; Site: left hand; mb3 19:41 Follow up: Response: No adverse reaction mb3 18:55 Drug: Benadryl 25 mg Route: IVP; Site: left hand; mb3 19:41 Follow up: Response: No adverse reaction mb3 20:27 Not Given (pt admitted, will be given on unit): Acyclovir (20mg/kg) 20 mg/kg IVPB once mb3 Disposition: 11/02/17 17:37 Hospitalization ordered by Edwin Ramirez for Inpatient Admission. Preliminary diagnosis is Aseptic meningitis, viral meningitis. - Bed requested for Telemetry/MedSurg (Inpatient). - Status is Inpatient Admission. mb3 - Condition is Fair. - Problem is new. - Symptoms have improved. UTI on Admission? No Signatures: Dispatcher [employer] EDDebo Medellin, RN RN Torsten Sánchez MD MD kdr Botello, Elizabeth eb Barnett, Mark, RN RN mb3 Corrections: (The following items were deleted from the chart) 18:28 17:37 Hospitalization Ordered by Edwin Ramirez DO for Inpatient Admission. Preliminary eb diagnosis is Aseptic meningitis, viral meningitis. Bed requested for Telemetry/MedSurg (Inpatient). Status is Inpatient Admission. Condition is Fair. Problem is new. Symptoms have improved. UTI on Admission? No. kdr 20:33 18:28 11/02/2017 17:37 Hospitalization Ordered by Edwin Ramirez DO for Inpatient mb3 Admission. Preliminary diagnosis is Aseptic meningitis, viral meningitis. Bed requested for Telemetry/MedSurg (Inpatient). Status is Inpatient Admission. Condition is Fair. Problem is new. Symptoms have improved. UTI on Admission? No. eb
--- NOTE | 2017-11-02 17:38 | ER ---
Nurse's Notes [facility] Name: Elle Man Age: 27 yrs Sex: Female : 1990 Arrival Date: 11/02/2017 Time: 11:05 Bed 26 Private MD: None, None Diagnosis: Aseptic meningitis, viral meningitis Presentation: 11/02 11:11 Presenting complaint: Patient states: migraine to the top of head started yesterday and sv neck stiffness started today around 0430. Pt reports hx of bacterial meningitis last year and "feels the same." Pt went to [facility] and was given muscle relaxers and pain medication with no relief. c/o photosensitivity. Transition of care: patient was not received from another setting of care. Onset of symptoms was November 01, 2017. Care prior to arrival: None. 11:11 Method Of Arrival: Ambulatory sv 11:11 Acuity: LAYTON 3 sv 20:29 Risk Assessment: Do you want to hurt yourself or someone else? Patient reports no mb3 desire to harm self or others. Initial Sepsis Screen: Does the patient meet any 2 criteria? No. Patient's initial sepsis screen is negative. Does the patient have a suspected source of infection? No. Patient's initial sepsis screen is negative. Triage Assessment: 20:28 Headache History: The patient has had previous headaches and this one is similar to mb3 previous episodes. General: Appears distressed, uncomfortable, Behavior is crying. Pain: Complains of pain in top of head and forehead Pain currently is 10 out of 10 on a pain scale. Pain began gradually, 1 day ago. Pain: Also complains of nausea. Neuro: No deficits noted. Level of Consciousness is awake, alert, obeys commands, Oriented to person, place, time, situation, Appropriate for age. Cardiovascular: No deficits noted. Respiratory: No deficits noted. GI: No deficits noted. No signs and/or symptoms were reported involving the gastrointestinal system. : No deficits noted. No signs and/or symptoms were reported regarding the genitourinary system. MEDICAL RECORD TECHNICIAN: 11:11 LMP 10/30/2017 sv Historical: - Allergies: 11:19 No Known Allergies; sv - PMHx: 11:19 Bacterial meningitis; sv - PSHx: 11:19 Appendectomy; ; D \\T\\ C; sv - Immunization history:: Adult Immunizations up to date. - Social history:: Smoking status: Patient/guardian denies using tobacco. - Ebola Screening: : No symptoms or risks identified at this time. Screenin:27 Abuse screen: Denies threats or abuse. Nutritional screening: No deficits noted. mb3 Tuberculosis screening: No symptoms or risk factors identified. Fall Risk None identified. Assessment: 12:33 General: Appears distressed, uncomfortable, obese, Behavior is cooperative, appropriate mb3 for age, crying. Pain: Complains of pain in top of head and forehead. Neuro: No deficits noted. Cardiovascular: No deficits noted. Respiratory: No deficits noted. GI: No deficits noted. : No deficits noted. No signs and/or symptoms were reported regarding the genitourinary system. EENT: No deficits noted. No signs and/or symptoms were reported regarding the EENT system. 13:55 Reassessment: No changes from previously documented assessment. Patient and/or family mb3 updated on plan of care and expected duration. Pain level reassessed. Patient is alert, oriented x 3, equal unlabored respirations, skin warm/dry/pink. 16:00 Reassessment: Patient and/or family updated on plan of care and expected duration. Pain mb3 level reassessed. Patient is alert, oriented x 3, equal unlabored respirations, skin warm/dry/pink. Patient states symptoms have not improved. Vital Signs: 11:11 BP 120 / 71; Pulse 91; Resp 20; Temp 98.7; Pulse Ox 98% ; Weight 117.93 kg; Height 5 sv ft. 11 in. (180.34 cm); Pain 10/10; 13:00 BP 114 / 72; Pulse 75; Resp 18; Pulse Ox 100% on R/A; mb3 14:45 BP 123 / 79; Pulse 75; Resp 18; Pulse Ox 100% on R/A; mb3 16:22 BP 121 / 76; Pulse 73; Resp 20; Pulse Ox 100% on R/A; mb3 11:11 Body Mass Index 36.26 (117.93 kg, 180.34 cm) sv ED Course: 11:05 Patient arrived in ED. sb2 11:05 None, None is Private Physician. sb2 11:11 Arm band placed on right wrist. Patient placed in an exam room, on a stretcher. sv 11:12 Kan, Villa, RN is Primary Nurse. mb3 11:19 Triage completed. sv 11:23 Torsten Sánchez MD is Attending Physician. kdr 11:[address] via wheelchair. vm2 11:42 CT completed. Patient tolerated procedure well. Patient moved back from CT. vm2 11:44 CT Head Brain wo Cont In Process Unspecified. EDMS 12:40 Missed attempt(s): 20 gauge in left antecubital area. Bleeding controlled, band aid iw applied, catheter tip intact. Patient maintains SpO2 saturation greater than 95% on room air. 12:50 Initial lab(s) drawn, by me, sent to lab. Inserted saline lock: 22 gauge in left hand, iw using aseptic technique. 15:59 X-ray completed. Patient tolerated procedure well. Note: lp complete. 16 cc of CSF mh1 collected.. Patient moved back from radiology. 16:13 Lumbar Puncture For Dx In Process Unspecified. EDMS 17:36 Edwin Ramirez DO is Hospitalizing Provider. kdr 20:29 Patient has correct armband on for positive identification. mb3 20:29 No provider procedures requiring assistance completed. Patient admitted, IV remains in mb3 place. Administered Medications: 12:55 Drug: morphine 4 mg Route: IVP; Site: left hand; mb3 13:45 Follow up: Response: No adverse reaction mb3 12:55 Drug: Zofran 4 mg Route: IVP; Site: left hand; mb3 13:45 Follow up: Response: No adverse reaction mb3 12:55 Drug: NS 0.9% 1000 ml Route: IV; Rate: 1 bolus; Site: left hand; mb3 14:59 Follow up: Response: No adverse reaction; IV Status: Completed infusion; IV Intake: mb3 1000ml 13:01 Drug: Rocephin - (cefTRIAXone) 1 grams Route: IVPB; Infused Over: 30 mins; Site: left mb3 hand; 13:45 Follow up: Response: No adverse reaction; IV Status: Completed infusion; IV Intake: [id number] 13:40 Drug: TORadol 30 mg Route: IVP; Site: left hand; mb3 14:59 Follow up: Response: No adverse reaction mb3 13:44 Drug: Phenergan 25 mg Route: IVP; Site: left hand; mb3 15:00 Follow up: Response: No adverse reaction mb3 14:50 Drug: NS 0.9% 1000 ml Route: IV; Rate: 1 bolus; Site: left antecubital; mb3 19:40 Follow up: Response: No adverse reaction; IV Status: Completed infusion; IV Intake: mb3 1000ml 18:08 Drug: fentaNYL (PF) 50 mcg Route: IVP; Site: left hand; mb3 19:40 Follow up: Response: No adverse reaction mb3 18:08 Drug: Zofran 4 mg Route: IVP; Site: left hand; mb3 19:41 Follow up: Response: No adverse reaction mb3 18:55 Drug: Reglan 10 mg Route: IVP; Site: left hand; mb3 19:41 Follow up: Response: No adverse reaction mb3 18:55 Drug: Decadron - Dexamethasone 10 mg Route: IVP; Site: left hand; mb3 19:41 Follow up: Response: No adverse reaction mb3 18:55 Drug: Benadryl 25 mg Route: IVP; Site: left hand; mb3 19:41 Follow up: Response: No adverse reaction mb3 20:27 Not Given (pt admitted, will be given on unit): Acyclovir (20mg/kg) 20 mg/kg IVPB once mb3 Intake: 13:45 IV: 60ml; Total: 60ml. mb3 14:59 IV: 1000ml; Total: 1060ml. mb3 19:40 IV: 1000ml; Total: 2060ml. mb3 Outcome: 17:37 Decision to Hospitalize by Provider. kdr 20:27 Admitted to Med/surg accompanied by tech, room 417, with chart, Report called to mb3 Janet Grace RN 20:27 Condition: stable 20:27 Instructed on the need for admit. 20:33 Patient left the ED. mb3 Signatures: Dispatcher [employer] EDMS Debo Castro RN Torsten Bloom MD MD kdr Harvey, Martha 1 Sandra Baker RN Indira Le 2 Betty Odonnell 2 Villa Kan RN RN mb3
[2017-11-02] MEDS ORDERED: ONDANSETRON 4 MG/2 ML VIAL IV PRN (17:54)
[2017-11-02] MEDS ORDERED: ACETAMINOPHEN 500 MG TAB PO PRN (17:54)
[2017-11-02] MEDS: NA CHLORIDE 0.9% 1,000 ML IV SCH (18:00)
--- NOTE | 2017-11-02 18:00 | RAD REPORT ---
EXAM DESCRIPTION: RAD - Lumbar Puncture For Dx - 11/02/2017 4:13 pm CLINICAL HISTORY: STIFF NECK, COLMENARES COMPARISON: LUMBAR SPINE 3 VIEWS dated 03/30/2008 TECHNIQUE: The procedure, risks and alternatives to the procedure were discussed with the patient in detail. After answering all questions, both oral and written consent were obtained. Time-out procedu re was performed. The patient was placed in an oblique prone position on the fluoroscopic table. The skin of the lower back was prepped and draped in the usual sterile fashion. After anesthetizing the skin and deeper sof t tissues with 1% lidocaine, a 22 gauge needle was advanced into the thecal sac at the L3-4 level. 16 mL of clear CSF was obtained. At the conclusion of the procedure the needle was withdrawn and a sterile bandage placed over the pun cture site. The patient tolerated the procedure well without immediate complications. Total fluoro time: 0.9 minutes. Images obtained: None. IMPRESSION: Successful fluoroscopic guided lumbar puncture. All obtained fluid was sent to the lab f or studies requested by the referring physician.
--- NOTE | 2017-11-02 18:03 | P.HP ---
Certification for Inpatient Patient admitted to: Inpatient With expected LOS: >2 Midnights Patient will require the following post-hospital care: None Practitioner: I am a practitioner with admitting privileges, knowledge of patient current condition, hospital course, and medical plan of care. Services: Services provided to patient in accordance with Admission requirements found in Title 42 Section 412.3 of the Code of Federal Regulations Patient History Date of Service: 11/02/17 Primary Care Provider: None; SALMON TROLL FISHER-Dr. Glez Reason for admission: Headache History of Present Illness: 27-year-old female present emergency room with severe headache. Patient reports that she was seen at a local ER facility for severe headache about 4:30 a.m.. The patient was evaluated there. This was thought to have been more migraine-like. She was given muscle relaxer. The pain persisted. She eventually went home. At home the pain got worse. She reported some nuchal rigidity. She denied any fever, nausea or vomiting. She was having some photophobia. Patient reports a history of viral meningitis in January last year. She reported at that time she was hospitalized for about 5 days. The patient reports that her son 3 years of age was recently evaluated for upper respiratory infection. The patient came to the ER for further evaluation. In the ER patient was evaluated. Initial white count 10.6, hemoglobin 13.9. Sodium 141, potassium 3.8. BUN unremarkable. Blood sugar 95. A spinal tap was done in the emergency room. CSF total protein was 86, CSF glucose was of 41. Bacterial antigen was negative for bacterial meningitis. CT of the head unremarkable. Case was discussed with Neurology. Neurology felt that this was likely viral meningitis. Patient will be admitted for evaluation and treatment. Patient has gotten IV acyclovir. In the ER the patient was resting in the bed. Headache improved. Patient denies any smoking or alcohol use. No prior medical problems noted. Allergies No Known Drug Allergies Allergy (Verified 03/07/16 09:43) Unknown No Known Allergies Allergy (Uncoded 02/01/17 21:46) Unknown Home medications list reviewed: Yes Home Medications: Codeine/APAP [Tylenol W/Codeine #3 tab] 1 tab PO Q6HP PRN #30 tab 03/12/16 Promethazine Tab [Phenergan] 25 mg PO Q6HP PRN #10 tab 11/16/16 Sulfamethoxazole/Trimethoprim [Bactrim Ds Tablet] 1 each PO BID #12 tablet 03/12 - Past Medical/Surgical History Diabetic: No -: History viral meningitis, January 2017 -: Appendectomy -: -: D and C Psychosocial/ Personal History: The patient is single. She has a set of twins. 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 - Family History Family History: Reviewed- Non-Contributory - Social History Smoking Status: Never smoker Alcohol use: No CD- Drugs: No Caffeine use: Yes Place of Residence: Home Review of Systems General: Weakness, Malaise, As per HPI Eyes: As per HPI ENT: As per HPI Respiratory: Unremarkable Cardiovascular: Light Headedness, As per HPI Gastrointestinal: Unremarkable Genitourinary: Unremarkable Musculoskeletal: Neck Pain, As per HPI Integumentary: Unremarkable Neurological: As per HPI Lymphatics: Unremarkable Physical Examination - Physical Exam General: Alert, In no apparent distress, Oriented x3, Cooperative HEENT: Atraumatic, Normocephalic, PERRLA, Mucous membr. moist/pink Neck: Other (Patient reports pain to the neck region.) Respiratory: Clear to auscultation bilaterally, Normal air movement Cardiovascular: Normal pulses, Regular rate/rhythm Gastrointestinal: Normal bowel sounds, Soft and benign, Non-distended, No tenderness, No masses, No rebound, No guarding Musculoskeletal: No erythema, No tenderness, No warmth Integumentary: No tenderness/swelling, No erythema, No warmth, No cyanosis Neurological: Normal speech, Normal strength at 5/5 x4 extr, Normal tone, Normal affect - Studies Laboratory Data (last 24 hrs) 11/02/17 12:40: Sodium 141, Potassium 3.8, BUN 10, Creatinine 0.70, Glucose 95 11/02/17 12:40: WBC 10.6, Hgb 13.9, Hct 40.8, Plt Count 277 Microbiology Data (last 24 hrs): 11/02/17 15:19 Cerebral Spinal Fluid CSF Bacterial Antigens (Tube 1) - Final Assessment and Plan - Problems (Diagnosis) (1) Meningitis Current Visit: Yes Status: Suspected Plan: Viral meningitis suspected. Patient will be started on acyclovir IV. Blood, urine and cultures from CSF obtained. Neurology has been consulted. ER spoke to neurology. Will provide IV fluids. Will provide medication for pain and nausea. Will reassess tomorrow. (2) Headache Current Visit: Yes Status: Acute Plan: Likely related to viral meningitis. Will provide medication. Will monitor closely. Qualifiers: Headache type: unspecified Headache chronicity pattern: acute headache Intractability: not intractable Qualified Code(s): R51 - Headache (3) Obesity Current Visit: Yes Status: Chronic Plan: Will calculate BMI. Will address lifestyle modification education. Discharge Plan: Home Plan to discharge in: Greater than 2 days - Advance Directives Does patient have a Living Will: No Does patient have a Durable POA for Healthcare: No - Code Status/Comfort Care Code Status Assessed: Yes (Patient full code.) Time Spent Managing Pts Care (In Minutes): 55
[2017-11-02] MEDS ORDERED: FENTANYL CITR 100 MCG/2 ML ONE (18:04)
[2017-11-02] MEDS ORDERED: METOCLOPRAMIDE 10 MG/2mL INJ ONE (18:50)
[2017-11-02] MEDS ORDERED: DEXAMETHASONE 10 MG/ML VIAL ONE (18:50)
[2017-11-02] MEDS ORDERED: DIPHENHYDRAMINE 50 MG/ML VIAL ONE (18:51)
[2017-11-02] MEDS ORDERED: ACYCLOVIR INJ 400 MG in NA CHLORIDE 0.9% 100 ML IVPB SCH (19:00)
--- NOTE | 2017-11-02 20:51 | RAD REPORT ---
EXAM DESCRIPTION: MRI - Brain W/Wo Cont - 11/02/2017 8:38 pm CLINICAL HISTORY: meningitis Headache COMPARISON: Head Brain Wo Cont dated 11/02/2017; Lumbar Puncture For Dx dated 11/02/2017 TECHNIQUE: Multi-sequence, multiplanar MR imaging of the brain was performed with contrast. FINDINGS: No intracranial hemorrhage, hydrocephalus, extra-axial fluid collection or acute infarctio n. No edema or shift of midline structures. No intracranial mass. DWI is negative for acute CVA. The midline structures are normally formed. Mastoid air cells and paranasal sinuses are clear. Post-contrast images show no abnormal enhancement to suggest tumor or infection. IMPRESSION: No acute or concerning intracranial abnormalities. No pathologic post-contrast enhancement suspected.
[2017-11-02 21:19] VITALS: BMI 38.3
[2017-11-02] MEDS: ENOXAPARIN 40 MG/0.4 ML SQ SCH (21:42)
[2017-11-02] MEDS: PANTOPRAZOLE 40MG TABLET PO SCH (21:42)
[2017-11-02] MEDS: NA CHLORIDE 0.9% IVPB SCH (21:42)
[2017-11-02] MEDS: ACYCLOVIR IVPB SCH (21:42)
[2017-11-02 22:18] LABS: RPR Titer ND
[2017-11-02 22:25] LABS: Urine Appearance CLEAR; Urine Bilirubin NEGATIVE (NEG); Urine Blood TRACE (NEG); Urine Color YELLOW; Urine Glucose NEGATIVE (NEG); Urine Protein NEGATIVE (NEG); Urine Urobilinogen 0.2 mg/dL (0.2-1.0); Urine pH 6.5 (5.0-7.0)
[2017-11-02 22:31] LABS: Urine Microscopic Reflex ORDER UMIC
[2017-11-02] MEDS: HYDROCODONE/APAP 7.5/325 MG TAB PO PRN (22:51)
[2017-11-02 23:59] LABS: Urine Bacteria 20-50 /HPF (<20); Urine Culture Reflex Order REFLEXED; Urine RBC <5 /HPF (NONE SEEN)
[2017-11-03] LABS: Urine Mucus LIGHT /HPF (NONE SEEN)
--- NOTE | 2017-11-03 00:52 | CON ---
Date of Consultation: 11/02/2017 Reason: Meningitis. History: A 27-year-old lady was here in January of 2017 with prominent headache, had a lumbar punctu re, then had meningitis with lymphocytic predominance, transferred to the [facility] per the mother and the patient, and diagnosed with viral meningitis, resolved completely, then gwendolyn thomas developed recurrent severe prominent headache. The patient has some remote history of migraine headaches, initially seen at an outside emergency department, treated and then released. Presented h ere with chief complaint of headache and neck discomfort. CT scan of the brain unremarkable/normal. Basic labs unrevealing. Given the complaint, lumbar puncture was performed demonstrating 250 white cells, 226 red cells with a glucose of 41 and a protein of 86, 10% neutrophils, 83% lymphocytes, and 7% monos. Bacterial antigens are negative. Gram stain is negative. I was consulted, recommended ad ding acyclovir. The patient is going to be admitted to the hospital for further evaluation and manag ement of above. Past Medical History: None. Routine Medications: None. Allergies: NONE. Social History: Never smoked. Drinks on occasion. Normally independent with activities of daily li ving. Family History: Noncontributory. Review of Systems: General: Good health. Eyes: Denies. Ears, nose, throat: Denies. Cardiovascular: Negative. Pulmonary: Negative. GI: Negative. : Negative. Musculoskeletal: Arthralgias. Neurologic: As noted. Psychiatric: Negative. Endocrine: Negative. Hematologic: Negative. Physical Examination: Vital Signs: She is afebrile. Vitals are stable. General: She is awake, alert, oriented. Eyes: Pupils miotic, reactive. Fundi difficult to visualize secondary to miosis. Ocular motion ful l without nystagmus. Visual ibarra full to confrontation bilaterally. Mouth: Facial strength and sensation normal. Tongue protrudes evenly. Soft palate elevates symmetri maureen bilaterally. Neck: 1+ stiff. Extremity: Strength full. Sensation intact. Reflexes 1/4, symmetric. Toes are downgoing. Cerebellar exam: There is no ataxia. Pertinent Labs: CSF as noted. CT scan as noted. White count 10, hemoglobin 13, platelets 277. Connor al function normal. Impression: Recurrent aseptic meningitis. Plan: Brain MRI. EEG. We will check RPR and a sedimentation rate, antinuclear antibody, HSV PCR. Check a West Nile virus. If the patient continues to be symptomatic, HIV testing would be appropriat e as well. If sedimentation rate is elevated, need to pursue testing for rheumatologic conditions. Thank you for the consult. We will continue to follow with you. KARLEY Voice ID: [id number] Report ID: [id number]
[2017-11-03] MEDS ORDERED: NA CHLORIDE 0.9% IVPB SCH (01:00)
[2017-11-03] MEDS ORDERED: ACYCLOVIR IVPB SCH (01:00)
[2017-11-03] MEDS: ACYCLOVIR IVPB SCH ×3 (01:32→16:03)
[2017-11-03] MEDS: NA CHLORIDE 0.9% IVPB SCH ×3 (01:32→16:03)
[2017-11-03] MEDS: TRAMADOL HCL 50 MG TAB PO PRN (03:21)
[2017-11-03] MEDS: NA CHLORIDE 0.9% 1,000 ML IV SCH ×2 (03:21→15:47)
[2017-11-03] MEDS: HYDROCODONE/APAP 7.5/325 MG TAB PO PRN ×3 (05:15→17:29)
[2017-11-03 05:55] LABS: Absolute Lymphocytes (CBC) 0.8 K/uL (0.7-4.9); Absolute Monocytes 0.2 K/uL (0.1-1.3); Absolute Neutrophil 10.9 K/uL (1.8-8.0); Basophils % 0.3 % (0-1.3); Hematocrit 37.5 % (36.0-45.0); Lymphocytes % 6.7 % (15.3-44.8); MCV 90.1 fL (80-100); MPV 8.7 fL (7.6-11.3); Monocytes % 1.6 % (3.3-12.3); RBC Red Blood Cell Count 4.17 M/uL (3.86-4.86)
[2017-11-03 06:18] LABS: BUN Blood Urea Nitrogen 8 mg/dL (7-18); Bicarbonate 27 mmol/L (21-32); Glucose Level 128 mg/dL (74-106); Potassium 4.3 mmol/L (3.5-5.1); Sodium Level 140 mmol/L (136-145)
--- NOTE | 2017-11-03 08:13 | P.PN ---
Subjective Date of Service: 11/03/17 Primary Care Provider: None; EQUAL OPPORTUNITY COUNSELOR-Dr. Glez Chief Complaint: Headache Subjective: Improving (Patient denies any headaches, dizziness. Patient feels much improved. Patient without significant complaints today.) Physical Examination - Vital Signs Temperature: 97 F Blood Pressure: 112/55 Pulse: 86 Respirations: 18 Pulse Ox (%): 94 - Physical Exam General: Alert, In no apparent distress, Oriented x3, Cooperative HEENT: Atraumatic Neck: Supple Respiratory: Clear to auscultation bilaterally, Normal air movement Cardiovascular: Normal pulses, Regular rate/rhythm Gastrointestinal: Normal bowel sounds, Soft and benign, Non-distended, No tenderness, No masses, No rebound, No guarding Musculoskeletal: No erythema, No tenderness, No warmth Integumentary: No tenderness/swelling, No erythema, No warmth, No cyanosis Neurological: Normal speech, Normal strength at 5/5 x4 extr, Normal tone, Normal affect - Studies Laboratory Data (last 24 hrs) 11/02/17 12:40: Sodium 141, Potassium 3.8, BUN 10, Creatinine 0.70, Glucose 95 11/02/17 12:40: WBC 10.6, Hgb 13.9, Hct 40.8, Plt Count 277 Microbiology Data (last 24 hrs): 11/02/17 15:19 Cerebral Spinal Fluid CSF Bacterial Antigens (Tube 1) - Final Medications List Reviewed: Yes Assessment & Plan - Problems (Diagnosis) (1) Meningitis Current Visit: Yes Status: Suspected Plan: Patient with recurrent aseptic meningitis. IV acyclovir started. MRI brain unremarkable. EEG to be done today. Patient evaluated by Neurology yesterday. Viral cultures obtained. Sed rate unremarkable. Will advance diet. Will monitor closely. Anticipate discharge in the next 1-2 days pending neurology recommendation. Patient had aseptic meningitis last year in January. (2) Headache Current Visit: Yes Status: Acute Plan: Likely related to viral meningitis. Will provide medication. Will monitor closely. Qualifiers: Headache type: unspecified Headache chronicity pattern: acute headache Intractability: not intractable Qualified Code(s): R51 - Headache (3) Obesity Current Visit: Yes Status: Chronic Plan: BMI 38. Will address lifestyle modification education. Qualifiers: Obesity type: due to excess calories Obesity classification: adult class 2 (BMI 35 - 39.9) Serious obesity comorbidity presence: without serious comorbidity Body mass index: BMI 38.0-38.9 Qualified Code(s): E66.09 - Other obesity due to excess calories; Z68.38 - Body mass index (BMI) 38.0-38.9, adult (4) Hyperglycemia Current Visit: Yes Status: Acute Plan: Fasting blood sugar 128. Will check A1c. Discharge Plan: Home Plan to discharge in: 24 Hours Time Spent Managing Pts Care (In Minutes): 55
[2017-11-03 08:28] LABS: Blood Morphology Comment NOT SEEN (NOT SEEN); Platelet Estimate ADEQ
[2017-11-03] MEDS: PANTOPRAZOLE 40MG TABLET PO SCH (08:53)
[2017-11-03] MEDS: ENOXAPARIN 40 MG/0.4 ML SQ SCH (08:53)
[2017-11-03] MEDS ORDERED: DIPHENHYDRAMINE 25 MG TAB/CAP PO ONE (20:00)
[2017-11-03 20:51] LABS: RPR (Rapid Plasma Reagin) NON-REACT (NON-REACT)
[2017-11-03] MEDS ORDERED: ALPRAZOLAM 0.25 MG TABLET PO ONE (21:00)
[2017-11-03] MEDS: KETOROLAC 30 MG/ML INJ IV PRN (21:20)
[2017-11-04] MEDS: ACYCLOVIR IVPB SCH ×3 (00:59→17:29)
[2017-11-04] MEDS: NA CHLORIDE 0.9% IVPB SCH ×3 (00:59→17:29)
[2017-11-04] MEDS: NA CHLORIDE 0.9% 1,000 ML IV SCH ×4 (01:00→22:33)
[2017-11-04 05:55] LABS: Absolute Lymphocytes (CBC) 2.8 K/uL (0.7-4.9); Absolute Monocytes 0.4 K/uL (0.1-1.3); Basophils % 0.6 % (0-1.3); Eosinophils % 0.8 % (0-4.4); Hematocrit 33.2 % (36.0-45.0); Lymphocytes % 33.3 % (15.3-44.8); MCH 31.6 pg (27.0-35.0); MCV 90.1 fL (80-100); MPV 8.9 fL (7.6-11.3); Monocytes % 5.1 % (3.3-12.3); RBC Red Blood Cell Count 3.68 M/uL (3.86-4.86)
[2017-11-04 05:59] LABS: BUN Blood Urea Nitrogen 10 mg/dL (7-18); Bicarbonate 29 mmol/L (21-32); Glucose Level 94 mg/dL (74-106); Magnesium 1.9 mg/dL (1.8-2.4); Potassium 3.6 mmol/L (3.5-5.1); Sodium Level 143 mmol/L (136-145)
[2017-11-04] MEDS ORDERED: POTASSIUM CL SA 10 MEQ TAB PO ONE (06:30)
[2017-11-04] MEDS: KETOROLAC 30 MG/ML INJ IV PRN ×2 (07:53→14:53)
[2017-11-04] MEDS: ENOXAPARIN 40 MG/0.4 ML SQ SCH ×2 (09:00→10:04)
[2017-11-04] MEDS: PANTOPRAZOLE 40MG TABLET PO SCH (10:04)
[2017-11-04] MEDS: HYDROCODONE/APAP 7.5/325 MG TAB PO PRN (10:04)
--- NOTE | 2017-11-04 11:52 | EEG ---
CHART: [id number] TEST ID#: [id number] DATE OF STUDY: 11/03/2017 THE EEG WAS RECORDED PORTABLE IN THE PATIENTS ROOM ON A 17 CHANNEL MACHINE. ELECTRODES WERE APPLIED IN THE USUAL MANNER USING THE INTERNATIONAL 10-20 SYSTEM. THE WAKING BACKGROUND RHYTHM IN THIS RECORD CONSISTS OF VERY WELL DEVELOPED AND WELL ORGANIZED WAVES OF 10 HZ., MAXIMAL IN THE POSTERIOR HEAD REGIONS WHICH ATTENUATE NORMALLY WITH EYE OPENING. IN DROWSINESS THE BACKGROUND DROPS TO 9 HZ. THERE ARE NO FOCAL OR LATERALIZING FEATURES. NO EPILEPTIFORM ACTIVITY APPEARS. SLEEP DID NOT OCCUR. HYPERVENTILATION WAS NOT PERFORMED. PHOTIC STIMULATION PRODUCED GOOD DRIVING BILATERALLY. IMPRESSION: NORMAL EEG FOR THE AGE OF THE PATIENT IN WAKE AND DROWSINESS.
--- NOTE | 2017-11-04 12:02 | P.PN ---
Subjective Date of Service: 11/04/17 Primary Care Provider: None; LOAN INTERVIEW[employer]-Dr. Glez Chief Complaint: Headache Subjective: Improving (Patient reports anxiety. Patient desires medication for this.) Physical Examination - Vital Signs Temperature: 97.9 F Blood Pressure: 130/72 Pulse: 75 Respirations: 19 Pulse Ox (%): 97 - Physical Exam General: Alert, In no apparent distress, Oriented x3, Cooperative HEENT: Atraumatic Neck: Supple Respiratory: Clear to auscultation bilaterally, Normal air movement Cardiovascular: Normal pulses, Regular rate/rhythm Gastrointestinal: Normal bowel sounds, Soft and benign, Non-distended, No tenderness, No masses, No rebound, No guarding Musculoskeletal: No erythema, No tenderness, No warmth Integumentary: No tenderness/swelling, No erythema, No warmth, No cyanosis Neurological: Normal speech, Normal strength at 5/5 x4 extr, Normal tone, Normal affect - Studies Microbiology Data (last 24 hrs): 11/02/17 12:40 Blood - Blood Anaerobic Blood Culture - Final Medications List Reviewed: Yes Assessment & Plan - Problems (Diagnosis) (1) Meningitis Onset Date: 11/03/17 Current Visit: Yes Status: Suspected Plan: Patient with recurrent aseptic meningitis. Continue IV acyclovir. MRI brain unremarkable. EEG unremarkable. Await HSV viral culture. Anticipate discharge soon if okay with neurology. (2) Headache Onset Date: 11/03/17 Current Visit: Yes Status: Acute Plan: Likely related to viral meningitis. Will provide medication. Will monitor closely. Qualifiers: Headache type: unspecified Headache chronicity pattern: acute headache Intractability: not intractable Qualified Code(s): R51 - Headache (3) Obesity Onset Date: 11/03/17 Current Visit: Yes Status: Chronic Plan: BMI 38. Will continue to address lifestyle modification education. Qualifiers: Obesity type: due to excess calories Obesity classification: adult class 2 (BMI 35 - 39.9) Serious obesity comorbidity presence: without serious comorbidity Body mass index: BMI 38.0-38.9 Qualified Code(s): E66.09 - Other obesity due to excess calories; Z68.38 - Body mass index (BMI) 38.0-38.9, adult (4) Hyperglycemia Onset Date: 11/03/17 Current Visit: Yes Status: Acute Plan: Fasting blood sugar 128. A1c 4.2. Discharge Plan: Home Plan to discharge in: 24 Hours Time Spent Managing Pts Care (In Minutes): 55
[2017-11-04] MEDS: TRAMADOL HCL 50 MG TAB PO PRN (21:15)
[2017-11-05] MEDS: ACYCLOVIR IVPB SCH ×2 (00:08→09:09)
[2017-11-05] MEDS: NA CHLORIDE 0.9% IVPB SCH ×2 (00:08→09:09)
--- NOTE | 2017-11-05 02:04 | CON ---
Date of Consultation: 11/04/2017 Time: 2009. Reason: Aseptic meningitis. Interval History: The patient feels improved. Brain MRI is normal. EEG was normal. Sedimentation rate normal at 4. CRESCENCIO level pending. RPR negative. Thyroid B12 normal. HSV PCR pending. The [place] ent is on IV acyclovir, off IV antibiotics. She feels improved. I think she could safely be dischar ged to home tomorrow. She has an appointment with a new primary care physician next week. They can follow up on the pending labs. I would discharge her on p.o. acyclovir. Check renal function in the morning prior to discharge. Physical Examination: She is awake, alert, oriented. Pupils reactive. Ocular motion full. Yin full. Face symmetric. Extremity strength full. Sensation intact. Reflexes symmetric. Impression: Aseptic meningitis, symptomatically improving. Plan: As noted. Check renal function in a.m.; if stable, can safely discharge to home on p.o. acycl ovir. Follow up with primary care next week for review of outpatient studies. Thank you for the consult. KARLEY Voice ID: [id number] Report ID: [id number]
[2017-11-05] MEDS: HYDROCODONE/APAP 7.5/325 MG TAB PO PRN (03:51)
[2017-11-05] MEDS: NA CHLORIDE 0.9% 1,000 ML IV SCH (06:00)
[2017-11-05 08:48] VITALS: BP 118/74; TEMP 98.1
--- NOTE | 2017-11-05 08:52 | P.DS ---
Admission Date: 11/02/17 Discharge Date: 11/05/17 Primary Care Provider: None; DENTAL OFFICE ASSISTANT-Dr. Glez Disposition: ROUTINE DISCHARGE Discharge Condition: GOOD Reason for Admission: Headache Consultations: Neurology-Dr. Elmore Procedures: EEG: Within normal range. No abnormality noted. CT head: No acute abnormality noted. MRI: COMPARISON: Head Brain Wo Cont dated 11/02/2017; Lumbar Puncture For Dx dated 11/02 TECHNIQUE: Multi-sequence, multiplanar MR imaging of the brain was performed with contrast. FINDINGS: No intracranial hemorrhage, hydrocephalus, extra-axial fluid collection or acute infarction. No edema or shift of midline structures. No intracranial mass. DWI is negative for acute CVA. The midline structures are normally formed. Mastoid air cells and paranasal sinuses are clear. Post-contrast images show no abnormal enhancement to suggest tumor or infection. IMPRESSION: No acute or concerning intracranial abnormalities. No pathologic post-contrast enhancement suspected. - Problems (1) Meningitis Onset Date: 11/03/17 Current Visit: Yes Status: Suspected (2) Headache Onset Date: 11/03/17 Current Visit: Yes Status: Acute Qualifiers: Headache type: unspecified Headache chronicity pattern: acute headache Intractability: not intractable Qualified Code(s): R51 - Headache (3) Obesity Onset Date: 11/03/17 Current Visit: Yes Status: Chronic Qualifiers: Obesity type: due to excess calories Obesity classification: adult class 2 (BMI 35 - 39.9) Serious obesity comorbidity presence: without serious comorbidity Body mass index: BMI 38.0-38.9 Qualified Code(s): E66.09 - Other obesity due to excess calories; Z68.38 - Body mass index (BMI) 38.0-38.9, adult (4) Hyperglycemia Onset Date: 11/03/17 Current Visit: Yes Status: Acute (5) Anxiety Current Visit: Yes Status: Acute Brief History of Present Illness: 27-year-old female present emergency room with severe headache. Patient reports that she was seen at a local ER facility for severe headache about 4:30 a.m.. The patient was evaluated there. This was thought to have been more migraine-like. She was given muscle relaxer. The pain persisted. She eventually went home. At home the pain got worse. She reported some nuchal rigidity. She denied any fever, nausea or vomiting. She was having some photophobia. Patient reports a history of viral meningitis in January last year. She reported at that time she was hospitalized for about 5 days. The patient reports that her son 3 years of age was recently evaluated for upper respiratory infection. The patient came to the ER for further evaluation. In the ER patient was evaluated. Initial white count 10.6, hemoglobin 13.9. Sodium 141, potassium 3.8. BUN unremarkable. Blood sugar 95. A spinal tap was done in the emergency room. CSF total protein was 86, CSF glucose was of 41. Bacterial antigen was negative for bacterial meningitis. CT of the head unremarkable. Case was discussed with Neurology. Neurology felt that this was likely viral meningitis. Patient will be admitted for evaluation and treatment. Patient has gotten IV acyclovir. In the ER the patient was resting in the bed. Headache improved. Patient denies any smoking or alcohol use. No prior medical problems noted. Hospital Course: During the course of her stay the patient was further evaluated for recurrent aseptic meningitis. Patient was evaluated by neurology. Patient continued with IV acyclovir. So for bacterial antigens negative from spinal fluid. EEG unremarkable. CT head and MRI brain showed no acute findings. RPR negative. BRYAN panel pending. HSV panel pending. Patient has done well without any significant headaches, dizziness, or significant abnormality. Patient will be discharged home. Patient will continue with acyclovir 100 mg 5 times a day for 10 days. Patient will need to follow up with neurology in 1-2 weeks to follow up this hospitalization. Patient has made arrangements to establish care with a local PCP. Follow up on HSV culture and BRYAN panel will be needed. Patient may have underlying anxiety. Recommendation is that the patient to follow up with her PCP to further evaluate. Patient may require medication in the future. Vital Signs/Physical Exam: Temp Pulse Resp BP Pulse Ox 98.0 F 77 18 112/52 L 100 11/05/17 04:00 11/05/17 04:00 11/05/17 04:00 11/05/17 04:00 11/05/17 04:00 General: Alert, In no apparent distress, Oriented x3, Cooperative HEENT: Atraumatic Neck: Supple Respiratory: Clear to auscultation bilaterally, Normal air movement Cardiovascular: Normal pulses, Regular rate/rhythm Gastrointestinal: Normal bowel sounds, Soft and benign, Non-distended, No tenderness, No masses, No rebound, No guarding Musculoskeletal: No erythema, No tenderness, No warmth Integumentary: No tenderness/swelling, No erythema, No warmth, No cyanosis Neurological: Normal speech, Normal strength at 5/5 x4 extr, Normal tone, Normal affect Lymphatics: No axilla or inguinal lymphadenopathy Laboratory Data at Discharge: WBC 8.3 K/uL (4.3-10.9) D 11/04/17 03:53 Hgb 11.6 g/dL (12.0-15.0) L 11/04/17 03:53 Hct 33.2 % (36.0-45.0) L 11/04/17 03:53 Plt Count 219 K/uL (152-406) D 11/04/17 03:53 Sodium 143 mmol/L (136-145) 11/04/17 03:53 Potassium 3.6 mmol/L (3.5-5.1) 11/04/17 03:53 BUN 10 mg/dL (7-18) 11/04/17 03:53 Creatinine 0.60 mg/dL (0.55-1.3) 11/04/17 03:53 Glucose 94 mg/dL (74-106) 11/04/17 03:53 Magnesium 1.9 mg/dL (1.8-2.4) 11/04/17 03:53 Total Bilirubin Cancelled 11/05/17 05:00 AST Cancelled 11/05/17 05:00 ALT Cancelled 11/05/17 05:00 Alkaline Phosphatase Cancelled 11/05/17 05:00 Home Medications: Acyclovir [Zovirax] 800 mg PO 5XD #50 tablet 11/05/17 New Medications: Acyclovir [Zovirax] 800 mg PO 5XD #50 tablet Patient Discharge Instructions: 1. Patient will need to follow up with a PCP to establish care and follow up this hospitalization. 2. Patient presented with headache. Patient likely has recurrent aseptic meningitis. Patient has done well during her stay. Bacteria cultures negative. HSV viral culture pending. CT head, MRI of brain, and EEG unremarkable. Patient evaluated by neurology. Patient has done well with acyclovir. At discharge she will continue with acyclovir 100 mg 5 times a day for 10 days. Recommendation is for the patient follow up with neurology in 1-2 weeks to follow up this hospitalization. Neurology and/or PCP will need to follow up on HSV lab and BRYAN panel. Patient may take Tylenol or ibuprofen as needed for pain. Diet: AHA Activity: Ad arlene Time spent managing pt's care (in minutes): 55
[2017-11-05] MEDS: ENOXAPARIN 40 MG/0.4 ML SQ SCH (09:00)
[2017-11-05] MEDS: PANTOPRAZOLE 40MG TABLET PO SCH (09:09)
[2017-11-05 12:10] VITALS: O2SAT 95
== END 2017-11-05 12:25 | disposition home or self-care (01) | DRG 99 ==
LOC: ER 11:02 → ERHOLD 17:45 → 4TH 19:26
PROVIDERS: ADMIT Family Medicine; ATTEND Family Medicine
PROC: 009U3ZX Drainage of Spinal Canal, Percutaneous Approach, Diagnostic (ICD-10-PCS; principal; 2017-11-02)
PROC: B01BZZZ Fluoroscopy of Spinal Cord (ICD-10-PCS; 2017-11-02)
DX: G03.0 Nonpyogenic meningitis (principal); R51 Headache; E66.09 Other obesity due to excess calories; Z68.38 Body mass index [BMI] 38.0-38.9, adult; R73.9 Hyperglycemia, unspecified; F41.9 Anxiety disorder, unspecified
CPT/HCPCS: 36415; 70450; 70553; 77003; 80048; 81003; 81015; 82164; 82607; 82945; 83036; 83735; 84157; 84439; 84443; 85025; 85652; 86038; 86403; 86592; 87040; 87070; 87086; 87088; 89050; 95816; 96361; 96365; 96375; 99285; A9577; J0133; J1100; J1650; J2405; J2550; J2765; J3010; J7030

== ENCOUNTER 2018-06-22 16:25 | Emergency (ER) | payer MEDICAID, SELFPAY ==
--- OUTSIDE RECORDS SUMMARY | 2018-06-22 16:27 | XMS REPORT | Clinical Summary ---
:1990 Author Organization [facility] Address [address] [place] [address] Care Team Providers Name Role Phone Mal Primary Care Provider Allergies No Known Allergies Medications Medication Sig Dispensed Refills Start Date End Date Status acetaminophen Take 2 tablets 30 tablet 0 02/04/2017 01/30/2018 (TYLENOL) 325 MG (650 mg total) tablet by mouth every 4 (four) hours as needed for up to 360 days. Active Problems Problem Noted Date Hypokalemia 02/03/2017 Headache 02/03/2017 Elevated LFTs 02/03/2017 Aseptic meningitis 02/01/2017 Social History Tobacco Use Types Packs/Day Years Used Date Never Smoker Smokeless Tobacco: Never Used Sex Assigned at Date Recorded Not on file Job Start Date Occupation Industry Not on file Not on file Not on file Travel History Travel Start Travel End No recent travel history available. Last Filed Vital Signs Not on file Plan of Treatment Not on file Results Not on fileafter 06/21/2017 Insurance Payer Benefit Plan / Group Subscriber ID Type Phone Address [employer] MED[place]ID [address] (Home) [place] [address] Advance Directives For more information, please contact:[facility]iscoChannel[facility] [phone] Code Status Date Activated Date Inactivated Comments Full Code 02/02/2017 12:13 AM 02/04/2017 2:39 PM This code status was determined by: Patient
--- OUTSIDE RECORDS SUMMARY | 2018-06-22 16:28 | XMS REPORT ---
:1990 Author Organization eClinicalWorks Care Team Providers Name Role Phone Hossein Richardson Provider Role Unavailable Allergies No Known Allergies Problems Problem Type Condition Code Onset Dates Condition Status Assessment Encephalitis G04.90 Active Medications Medication Code System Code Instructions Start Date End Date Status Dosage Acyclovir [facility] [id number] 400 MG Orally November 18, Active 1 tablet Three times a day 2018 Results No Known Results Summary Purpose eClinicalvaluescope Submission
--- OUTSIDE RECORDS SUMMARY | 2018-06-22 16:28 | XMS REPORT ---
:1990 Author Organization eClinicalWorks Care Team Providers Name Role Phone Hossein Richardson Provider Role Unavailable Allergies, Adverse Reactions, Alerts Substance Reaction Event Type N.K.D.A. 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
--- OUTSIDE RECORDS SUMMARY | 2018-06-22 16:28 | XMS REPORT ---
:1990 [facility] Address [facility] [place] [address] Care Team Providers Name Role Phone BLAYNE [...] 1\T\2 ANTIBODY (2) (BEAKER) (test Nonreactive Nonreactive jsmw=2836) BASIC METABOLIC [id number] 06:30:00 Test Item Value Reference Range Comments SODIUM (BEAKER) (test 139 meq/L 136-145 bsqk=687) POTASSIUM (BEAKER) (test 3.8 meq/L 3.5-5.1 zjzk=643) CHLORIDE (BEAKER) (test 107 meq/L 98-107 dflf=444) CO2 (BEAKER) (test 26 meq/L 22-29 ydtl=960) BLOOD UREA NITROGEN 11 mg/dL 7-21 (BEAKER) (test igbt=621) CREATININE (BEAKER) (test 0.65 mg/dL 0.57-1.25 twhf=321) GLUCOSE RANDOM (BEAKER) 98 mg/dL 70-105 (test azwi=250) CALCIUM (BEAKER) (test 8.7 mg/dL 8.4-10.2 dadu=776) EGFR (BEAKER) (test mL/min/1.73 sq m INSUFFICIENT CLINICAL DATA ctzn=0455) TO CALCULATE ESTIMATED GFR. [id number] 06:19:00 Test Item Value Reference Range Comments PHOSPHORUS (BEAKER) (test cwph=163) 1.9 mg/dL 2.3-4.7 [id number] 06:19:00 Test Item Value Reference Range Comments MAGNESIUM (BEAKER) (test kpnl=048) 1.8 mg/dL 1.6-2.6 HEPATIC FUNCTION [id number] 06:19:00 Test Item Value Reference Range Comments TOTAL PROTEIN (BEAKER) (test trvl=674) 6.2 gm/dL 6.0-8.3 ALBUMIN (BEAKER) (test wvdg=2927) 3.6 g/dL 3.5-5.0 BILIRUBIN TOTAL (BEAKER) (test kdwn=756) 0.7 mg/dL 0.2-1.2 BILIRUBIN DIRECT (BEAKER) (test qrsn=452) 0.3 mg/dL 0.1-0.5 ALKALINE PHOSPHATASE (BEAKER) (test lbea=628) 93 U/L 40-150 AST (SGOT) (BEAKER) (test qlrb=678) 10 U/L 5-34 ALT (SGPT) (BEAKER) (test whax=989) 7 U/L 6-55 CBC W/PLT COUNT & AUTO [id number] 06:11:00 Test Item Value Reference Range Comments WHITE BLOOD CELL COUNT (BEAKER) (test foqx=148) 6.9 K/ L 3.5-10.5 RED BLOOD CELL COUNT (BEAKER) (test qhct=405) 3.92 M/ L 3.93-5.22 HEMOGLOBIN (BEAKER) (test urhy=320) 11.9 GM/DL 11.2-15.7 HEMATOCRIT (BEAKER) (test gpdk=997) 35.7 % 34.1-44.9 MEAN CORPUSCULAR VOLUME (BEAKER) (test xlnq=108) 91.1 fL 79.4-94.8 MEAN CORPUSCULAR HEMOGLOBIN (BEAKER) (test 30.4 pg 25.6-32.2 mlgc=174) MEAN CORPUSCULAR HEMOGLOBIN CONC (BEAKER) (test 33.3 GM/DL 32.2-35.5 otqn=626) RED CELL DISTRIBUTION WIDTH (BEAKER) (test 12.3 % 11.7-14.4 mtnh=133) PLATELET COUNT (BEAKER) (test hqwk=410) 204 K/CU MM 150-450 MEAN PLATELET VOLUME (BEAKER) (test atuq=990) 11.2 fL 9.4-12.3 NUCLEATED RED BLOOD CELLS (BEAKER) (test 0 /100 WBC 0-0 qzaj=370) NEUTROPHILS RELATIVE PERCENT (BEAKER) (test 72 % sihs=095) LYMPHOCYTES RELATIVE PERCENT (BEAKER) (test 21 % mnav=933) MONOCYTES RELATIVE PERCENT (BEAKER) (test 6 % hfzo=186) EOSINOPHILS RELATIVE PERCENT (BEAKER) (test 1 % vdvh=643) BASOPHILS RELATIVE PERCENT (BEAKER) (test 0 % uopv=304) NEUTROPHILS ABSOLUTE COUNT (BEAKER) (test 5.00 K/ L 1.56-6.13 ipbr=317) LYMPHOCYTES ABSOLUTE COUNT (BEAKER) (test 1.44 K/ L 1.18-3.74 xzau=457) MONOCYTES ABSOLUTE COUNT (BEAKER) (test 0.39 K/ L 0.24-0.36 cxbd=328) EOSINOPHILS ABSOLUTE COUNT (BEAKER) (test 0.07 K/ L 0.04-0.36 uvtb=035) BASOPHILS ABSOLUTE COUNT (BEAKER) (test 0.02 K/ L 0.01-0.08 gpca=088) IMMATURE GRANULOCYTES-RELATIVE PERCENT (BEAKER) 0 % 0-1 (test ijsx=7196) BASIC METABOLIC [id number] 10:11:00 Test Item Value Reference Range Comments SODIUM (BEAKER) (test 136 meq/L 136-145 yfff=497) POTASSIUM (BEAKER) (test 3.2 meq/L 3.5-5.1 tbfu=508) CHLORIDE (BEAKER) (test 107 meq/L 98-107 tbdp=870) CO2 (BEAKER) (test 25 meq/L 22-29 kazc=452) BLOOD UREA NITROGEN 7 mg/dL 7-21 (BEAKER) (test rtuu=642) CREATININE (BEAKER) (test 0.62 mg/dL 0.57-1.25 sxpo=430) GLUCOSE RANDOM (BEAKER) 106 mg/dL 70-105 (test ibtm=910) CALCIUM (BEAKER) (test 8.9 mg/dL 8.4-10.2 bxyo=662) EGFR (BEAKER) (test mL/min/1.73 sq m INSUFFICIENT CLINICAL DATA ykya=9712) TO CALCULATE ESTIMATED GFR. [id number] 09:56:00 Test Item Value Reference Range Comments PHOSPHORUS (BEAKER) (test wplc=541) 1.6 mg/dL 2.3-4.7 [id number] 09:56:00 Test Item Value Reference Range Comments MAGNESIUM (BEAKER) (test vyhz=087) 2.0 mg/dL 1.6-2.6 HEPATIC FUNCTION [id number] 09:56:00 Test Item Value Reference Range Comments TOTAL PROTEIN (BEAKER) (test joze=909) 6.3 gm/dL 6.0-8.3 ALBUMIN (BEAKER) (test hapl=2908) 3.7 g/dL 3.5-5.0 BILIRUBIN TOTAL (BEAKER) (test rvba=678) 1.4 mg/dL 0.2-1.2 BILIRUBIN DIRECT (BEAKER) (test jwyb=151) 0.6 mg/dL 0.1-0.5 ALKALINE PHOSPHATASE (BEAKER) (test mvcf=735) 97 U/L 40-150 AST (SGOT) (BEAKER) (test pgjt=204) 10 U/L 5-34 ALT (SGPT) (BEAKER) (test lajy=027) 8 U/L 6-55 CBC W/PLT COUNT & AUTO [id number] 09:53:00 Test Item Value Reference Range Comments WHITE BLOOD CELL COUNT (BEAKER) (test yrxw=127) 9.0 K/ L 3.5-10.5 RED BLOOD CELL COUNT (BEAKER) (test igrc=434) 3.90 M/ L 3.93-5.22 HEMOGLOBIN (BEAKER) (test fwnj=070) 11.8 GM/DL 11.2-15.7 HEMATOCRIT (BEAKER) (test ggmr=363) 35.5 % 34.1-44.9 MEAN CORPUSCULAR VOLUME (BEAKER) (test dnyy=522) 91.0 fL 79.4-94.8 MEAN CORPUSCULAR HEMOGLOBIN (BEAKER) (test 30.3 pg 25.6-32.2 allj=311) MEAN CORPUSCULAR HEMOGLOBIN CONC (BEAKER) (test 33.2 GM/DL 32.2-35.5 lqoh=007) RED CELL DISTRIBUTION WIDTH (BEAKER) (test 12.0 % 11.7-14.4 lajh=373) PLATELET COUNT (BEAKER) (test sgvf=698) 212 K/CU MM 150-450 MEAN PLATELET VOLUME (BEAKER) (test rksr=304) 10.8 fL 9.4-12.3 NUCLEATED RED BLOOD CELLS (BEAKER) (test 0 /100 WBC 0-0 ujgj=888) NEUTROPHILS RELATIVE PERCENT (BEAKER) (test 69 % nudh=926) LYMPHOCYTES RELATIVE PERCENT (BEAKER) (test 24 % rptq=321) MONOCYTES RELATIVE PERCENT (BEAKER) (test 5 % kzyv=748) EOSINOPHILS RELATIVE PERCENT (BEAKER) (test 1 % nacq=249) BASOPHILS RELATIVE PERCENT (BEAKER) (test 0 % rkup=024) NEUTROPHILS ABSOLUTE COUNT (BEAKER) (test 6.21 K/ L 1.56-6.13 dbic=360) LYMPHOCYTES ABSOLUTE COUNT (BEAKER) (test 2.19 K/ L 1.18-3.74 bure=780) MONOCYTES ABSOLUTE COUNT (BEAKER) (test 0.49 K/ L 0.24-0.36 jgtb=184) EOSINOPHILS ABSOLUTE COUNT (BEAKER) (test 0.08 K/ L 0.04-0.36 fbcg=064) BASOPHILS ABSOLUTE COUNT (BEAKER) (test 0.03 K/ L 0.01-0.08 mxnd=965) IMMATURE GRANULOCYTES-RELATIVE PERCENT (BEAKER) 0 % 0-1 (test ertg=7525)
--- OUTSIDE RECORDS SUMMARY | 2018-06-22 16:28 | XMS REPORT ---
:1990 Author Organization eClinicalWorks Care Team Providers Name Role Phone Hossein Richardson Provider Role Unavailable Allergies No Known Allergies Problems No Known Problems Medications No Known Medications Results No Known Results Summary Purpose eClinicalWorks Submission
[2018-06-22] MEDS ORDERED: NA CHLORIDE 0.9% 1,000 ML ONE (16:56)
[2018-06-22] MEDS ORDERED: ONDANSETRON 4 MG/2 ML VIAL ONE (16:56)
[2018-06-22] MEDS ORDERED: MORPHINE 4 MG/ML SYR ONE ×2 (16:56→17:55)
[2018-06-22 17:46] LABS: ALT/SGPT 20 U/L (12-78); AST/SGOT 14 U/L (15-37); Albumin 3.9 g/dL (3.4-5.0); Alkaline Phosphatase 129 U/L (45-117); BUN Blood Urea Nitrogen 14 mg/dL (7-18); Bicarbonate 23 mmol/L (21-32); Bilirubin Direct 0.3 mg/dL (0-0.2); Bilirubin Total 1.4 mg/dL (0.2-1.0); Glucose Level 110 mg/dL (74-106); Lipase 97 U/L (73-393); Protein, Total 7.5 g/dL (6.4-8.2); Sodium Level 136 mmol/L (136-145)
[2018-06-22 18:29] LABS: Urine Specific Gravity >1.030 (1.005-1.030)
[2018-06-22 18:31] LABS: Urine Blood NEGATIVE (NEG); Urine Glucose NEGATIVE (NEG); Urine Protein 1+ (NEG)
--- NOTE | 2018-06-22 18:45 | RAD REPORT ---
EXAM DESCRIPTION: CT - Abdomen Pelvis Wo Contrast - 06/22/2018 6:19 pm CLINICAL HISTORY: Abdominal pain, periumbilical pain COMPARISON: CT study April 2014 TECHNIQUE: Axial [address] imaging of the abdomen and pelvis was performed without IV contrast. No IV contrast was given because of allergy, abnormal renal function, patient refusal or physician re quest. Oral contrast was given. All CT scans are performed using dose optimization technique as appropriate and may include automated exposure control or mA/KV adjustment according to patient size. FINDINGS: No suspicious findings in the lung bases. The liver, spleen and pancreas show no suspicious findings on non-contrast imaging. Gallbladder and b iliary tree are also without suspicious finding. Gallstones can be occult on CT imaging. No active ga llbladder process suspected. No hydronephrosis or suspicious renal mass. No significant adrenal finding. Isodense renal masses an d pyelonephritis cannot be excluded in the absence of IV contrast. Urinary bladder is fully contracte d limiting assessment. No bladder calculus. Uterus and ovaries show no suspicious findings. No dilated bowel loops or bowel wall thickening. Appendectomy clips are present. No free air, pneumat osis or focal inflammatory stranding. Trace fluid in the cul-de-sac is within physiologic limits. No mass or bulky lymphadenopathy. No omental thickening. Patient has a small 3 centimeter right supraumb ilical hernia. Neck is 8 mm. This contains only fat. No congestion or edema seen. There is mesh mater ial present just inferior to this hernia from a prior repair. There is a remnant small umbilical fat only hernia present. No suspicious bony findings. IMPRESSION: Non-contrast enhanced CT abdomen and pelvis imaging show no acute finding. Patient has a 3 centimeter right supraumbilical hernia contain only fat. No congestion or edema seen. Full assessment is limited is the absence of IV contrast.
--- NOTE | 2018-06-22 19:04 | EDPHYS ---
Physician Documentation [facility] Name: Elle Man Age: 28 yrs Sex: Female : 1990 Arrival Date: 06/22/2018 Time: 16:28 Bed 15 Private MD: Renzo Mendoza ED Physician Bhanu Kenny HPI: 06/22 16:48 This 28 yrs old Female presents to ER via Ambulatory with complaints of kb Abdominal Pain. 16:48 The patient presents with abdominal pain in the periumbilical area. Onset: The kb symptoms/episode began/occurred 2 week(s) ago. The symptoms do not radiate. Associated signs and symptoms: Pertinent positives: nausea and vomiting. The symptoms are described as constant. Modifying factors: The symptoms are alleviated by nothing, the symptoms are aggravated by pressure. Severity of pain: At its worst the pain was moderate in the emergency department the pain is unchanged. The patient has experienced a previous episode, many years ago, and the symptoms today are exactly the same, when diagnosed with hernia. The patient has not recently seen a physician. Pt reports she has had abd for 2 weeks with nausea and it makes her have chills at times. States today she has been vomiting from it so she came in. States she had mesh placed to repair a hernia in [address] Pierre and she feels like it is out again. MANAGER REHAB: 19:20 LMP N/A - . tw2 Historical: - Allergies: 16:41 No Known Drug Allergies; ph - PMHx: 16:41 bacterial meningitis; ph - PSHx: 16:41 Appendectomy; ; D \T\ C; Hernia repair; ph - Immunization history:: Adult Immunizations unknown. - Social history:: Smoking status: Patient/guardian denies using tobacco. - Ebola Screening: : No symptoms or risks identified at this time. ROS: 16:43 Constitutional: Negative for fever, chills, and weight loss, Cardiovascular: Negative kb for chest pain, palpitations, and edema, Respiratory: Negative for shortness of breath, cough, wheezing, and pleuritic chest pain, Back: Negative for injury and pain, : Negative for injury, bleeding, discharge, and swelling, MS/Extremity: Negative for injury and deformity, Skin: Negative for injury, rash, and discoloration, Neuro: Negative for headache, weakness, numbness, tingling, and seizure. 16:43 Abdomen/GI: Positive for abdominal pain, nausea and vomiting, Negative for diarrhea, constipation, abdominal cramps, abdominal distension, anorexia. Exam: 16:47 Constitutional: This is a well developed, well nourished patient who is awake, alert, kb and in no acute distress. Head/Face: Normocephalic, atraumatic. Chest/axilla: Normal chest wall appearance and motion. Nontender with no deformity. No lesions are appreciated. Cardiovascular: Regular rate and rhythm with a normal S1 and S2. No gallops, murmurs, or rubs. Normal PMI, no JVD. No pulse deficits. Respiratory: Lungs have equal breath sounds bilaterally, clear to auscultation and percussion. No rales, rhonchi or wheezes noted. No increased work of breathing, no retractions or nasal flaring. Skin: Warm, dry with normal turgor. Normal color with no rashes, no lesions, and no evidence of cellulitis. MS/ Extremity: Pulses equal, no cyanosis. Neurovascular intact. Full, normal range of motion. Neuro: Awake and alert, GCS 15, oriented to person, place, time, and situation. Cranial nerves II-XII grossly intact. Motor strength 5/5 in all extremities. Sensory grossly intact. Cerebellar exam normal. Normal gait. 16:47 Abdomen/GI: Inspection: obese Bowel sounds: normal, in all quadrants, Palpation: moderate abdominal tenderness, in the umbilical area, Hernia: noted in the umbilical area, reduced. Vital Signs: 16:41 BP 114 / 77; Pulse 95; Resp 18; Temp 98.1; Pulse Ox 98% on R/A; ph 17:55 BP 110 / 69; Pulse 79; Resp 17; Pulse Ox 97% on R/A; tw2 MDM: 16:34 Patient medically screened. kb 16:43 Data reviewed: vital signs, nurses notes, lab test result(s), radiologic studies, CT kb scan. Data interpreted: Pulse oximetry: on room air is 98 %. Interpretation: normal. 17:12 Physician consultation: Pietro Pierre MD was contacted at 17:12, regarding consult, kb patient's condition, and will see patient in office, tomorrow. 19:02 Counseling: I had a detailed discussion with the patient and/or guardian regarding: the jr8 historical points, exam findings, and any diagnostic results supporting the discharge/admit diagnosis, lab results, radiology results, the need for outpatient follow up, a general surgeon, to return to the emergency department if symptoms worsen or persist or if there are any questions or concerns that arise at home. 06/22 16:39 Order name: Basic Metabolic Panel; Complete Time: 18:00 kb 06/22 16:39 Order name: Hepatic Function; Complete Time: 18:00 kb 06/22 16:39 Order name: Lipase; Complete Time: 18:00 kb 06/22 17:48 Order name: Urine --Ancillary (enter results); Complete Time: 19:01 bd 06/22 18:19 Order name: Urine Dipstick--Ancillary (enter results); Complete Time: 19:01 bd 06/22 16:39 Order name: Labs collected and sent; Complete Time: 17:41 kb 06/22 17:45 Order name: Abdomen ; Complete Time: 19:01 EDMS 06/22 17:43 Order name: Urine Test (obtain specimen); Complete Time: 18:16 kb 06/22 17:43 Order name: Urine Dipstick-Ancillary (obtain specimen); Complete Time: 18:16 kb Administered Medications: 17:35 Drug: Zofran 4 mg Route: IVP; Site: left antecubital; tw2 19:00 Follow up: Response: No adverse reaction tw2 17:41 Not Given (pt c/o pain at IV site, infiltration noted): morphine 4 mg IVP once tw2 17:45 Drug: morphine 4 mg Route: IM; Site: left deltoid; tw2 19:00 Follow up: Response: No adverse reaction; Pain is decreased tw2 17:51 Not Given (no iv access at this time.): NS 0.9% 1000 ml IV at 1000 ml once tw2 Disposition: 06/22/18 19:03 Discharged to Home. Impression: Umbilical hernia. - Condition is Stable. - Discharge Instructions: Umbilical Herniorrhaphy. - Medication Reconciliation Form, Thank You Letter, Antibiotic Education, Prescription Opioid Use, Work release form form. - Follow up: Pietro Pierre MD; When: Tomorrow; Reason: Recheck today's complaints, Continuance of care, Re-evaluation by your physician. - Problem is new. - Symptoms have improved. Signatures: Dispatcher [employer] EDAK Silvia Cardenas, AIRFREIGHT OPERATIONS AGENT-C AIRFREIGHT OPERATIONS AGENT-Ckb Costa Moore PA PA jr8 Rayne Vance, RN RN Nadya Ron, ISIDRO RN tw2 Corrections: (The following items were deleted from the chart) 17:45 16:39 Abdomen Pelvis W Con+CT.RAD.BRZ ordered. EDAK EDAK 19:03 16:43 Data reviewed: vital signs, nurses notes, jocelyn jr8 19:20 19:03 06/22/2018 19:03 Discharged to Home. Impression: Umbilical hernia. Condition is tw2 Stable. Forms are Medication Reconciliation Form, Thank You Letter, Antibiotic Education, Prescription Opioid Use. Follow up: Pietro Pierre; When: Tomorrow; Reason: Recheck today's complaints, Continuance of care, Re-evaluation by your physician. Problem is new. Symptoms have improved. jr8
--- NOTE | 2018-06-22 19:04 | ER ---
Nurse's Notes [facility] Name: Elle Man Age: 28 yrs Sex: Female : 1990 Arrival Date: 06/22/2018 Time: 16:28 Bed 15 Private MD: Renzo Mendoza Diagnosis: Umbilical hernia Presentation: 06/22 16:39 Presenting complaint: Patient states: Pain above umbilical area x 2 weeks, also c/o ph N/V/D and chills, reports hx of hernia repair, states, " I can feel something bulging there and it feels a little better when I'm laying down.". Transition of care: patient was not received from another setting of care. Onset of symptoms was June 22, 2018. Risk Assessment: Do you want to hurt yourself or someone else? Patient reports no desire to harm self or others. Initial Sepsis Screen: Does the patient meet any 2 criteria? No. Patient's initial sepsis screen is negative. Does the patient have a suspected source of infection? No. Patient's initial sepsis screen is negative. Care prior to arrival: None. 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 - Social history:: Smoking status: Patient/guardian denies using tobacco. - Ebola Screening: : No symptoms or risks identified at this time. Screenin:01 Abuse screen: Denies threats or abuse. Nutritional screening: No deficits noted. tw2 Tuberculosis screening: No symptoms or risk factors identified. Fall Risk None identified. Assessment: 16:35 General: Appears uncomfortable, obese, Behavior is calm, cooperative, appropriate for tw2 age. Pain: Complains of pain in umbilical area. Neuro: Level of Consciousness is awake, alert, obeys commands, Oriented to person, place, time, situation. Cardiovascular: Heart tones S1 S2 Capillary refill < 3 seconds. Respiratory: Airway is patent Respiratory effort is even, unlabored, Respiratory pattern is regular, symmetrical, Breath sounds are clear bilaterally. GI: Abdomen is round non-distended, obese, Bowel sounds present X 4 quads. Abd is soft X 4 quads. : No signs and/or symptoms were reported regarding the genitourinary system. : No signs and/or symptoms were reported regarding the genitourinary system. EENT: No signs and/or symptoms were reported regarding the EENT system. Derm: No signs and/or symptoms reported regarding the dermatologic system. Musculoskeletal: Circulation, motion, and sensation intact. Range of motion: intact in all extremities. 17:58 Reassessment: Patient appears in no apparent distress at this time. No changes from tw2 previously documented assessment. Patient and/or family updated on plan of care and expected duration. Pain level reassessed. Patient is alert, oriented x 3, equal unlabored respirations, skin warm/dry/pink. 19:20 Reassessment: Patient appears in no apparent distress at this time. No changes from tw2 previously documented assessment. Patient and/or family updated on plan of care and expected duration. Pain level reassessed. Patient is alert, oriented x 3, equal unlabored respirations, skin warm/dry/pink. Vital Signs: 16:41 BP 114 / 77; Pulse 95; Resp 18; Temp 98.1; Pulse Ox 98% on R/A; ph 17:55 BP 110 / 69; Pulse 79; Resp 17; Pulse Ox 97% on R/A; tw2 ED Course: 16:28 Patient arrived in ED. mr 16:29 Renzo Mendoza MD is Private Physician. mr 16:30 Bed in low position. Call light in reach. Adult w/ patient. Pulse ox on. NIBP on. tw2 16:33 Silvia Cardenas FNP-C is PHCP. kb 16:33 Bhanu Kenny MD is Attending Physician. kb 16:40 Nadya Ron RN is Primary Nurse. tw2 16:41 Triage completed. ph 16:42 Arm band placed on Patient placed in an exam room, on a stretcher. ph 17:00 Missed attempt(s): 22 gauge in left antecubital area. charge nurse ISIDRO Burkett notified. tw2 Bleeding controlled, band aid applied, catheter tip intact. 17:02 Radiology exam delayed due to lab results not completed at this time. (BUN/Creatinine). vm2 17:10 Missed attempt(s): 20 gauge in right forearm. per ISIDRO Burkett. Bleeding controlled, band tw2 aid applied, catheter tip intact. 17:13 Initial lab(s) drawn, by me, sent to lab. aa5 17:13 Missed attempt(s): 22 gauge in left forearm. Bleeding controlled, band aid applied, aa5 catheter tip intact. 17:30 Inserted saline lock: 20 gauge in left antecubital area, using aseptic technique. aa5 ,using aseptic technique. US guided IV. 17:45 PHCP role handed off by Silvia Cardenas FNP-C jr8 17:45 Costa Moore PA is PHCP. jr8 17:45 IV discontinued, intact, bleeding controlled, No redness/swelling at site. Pressure tw2 dressing applied, infiltration noted to LEFT ac, pt asked for it to be discontinued. 17:47 Radiology exam delayed due to test not completed at this time. 2 18:[address] via wheelchair. nj 18:18 CT completed. Patient tolerated procedure well. Patient moved back from [place]. nj 18:20 Abdomen In Process Unspecified. EDMS 19:03 Pietro Pierre MD is Referral Physician. jr8 19:20 No provider procedures requiring assistance completed. Patient did not have IV access tw2 during this emergency room visit. Administered Medications: 17:35 Drug: Zofran 4 mg Route: IVP; Site: left antecubital; tw2 19:00 Follow up: Response: No adverse reaction tw2 17:41 Not Given (pt c/o pain at IV site, infiltration noted): morphine 4 mg IVP once tw2 17:45 Drug: morphine 4 mg Route: IM; Site: left deltoid; tw2 19:00 Follow up: Response: No adverse reaction; Pain is decreased tw2 17:51 Not Given (no iv access at this time.): NS 0.9% 1000 ml IV at 1000 ml once tw2 Outcome: 19:03 Discharge ordered by . jr8 19:20 Patient left the ED. tw2 19:20 Discharged to home ambulatory, with family. tw2 19:20 Condition: stable 19:20 Discharge instructions given to patient, family, Instructed on discharge instructions, follow up and referral plans. Demonstrated understanding of instructions, follow-up care. Signatures: Dispatcher [employer] EDNH Silvia Cardenas FNP-C BILINGUAL BRANCH MANAGER-Ckb Jenkins Vesna mr Travis, Madelaine, RN RN aa5 Costa Moore PA PA jr8 Rayne Vance RN RN Nadya Ron RN RN tw2 Shiv Jimenez Victoria 2 Corrections: (The following items were deleted from the chart) 17:41 17:10 Initial lab(s) drawn, by me, sent to lab. aa5 aa5
[2018-06-22 19:53] VITALS: TEMP 98.1
[2018-06-22 19:57] VITALS: BP 110/69; O2SAT 97
== END 2018-06-22 19:20 | disposition home or self-care (01) ==
LOC: ER 16:25
DX: K42.9 Umbilical hernia without obstruction or gangrene (principal)
CPT/HCPCS: 36415; 74176; 80048; 80076; 81003; 81025; 83690; 96372; 96374; 99284; J2405; J7030

== ENCOUNTER 2018-11-28 17:14 | Emergency (ER) | payer BC, SELFPAY ==
--- OUTSIDE RECORDS SUMMARY | 2018-11-28 17:16 | XMS REPORT ---
:1990 Author Organization eClinical[employer] Care Team Providers Name Role Phone Hossein Richardson Provider Role Unavailable Allergies No Known Allergies Problems Problem Type Condition Code Onset Dates Condition Status Assessment Encephalitis G04.90 Active Medications Medication Code System Code Instructions Start Date End Date Status Dosage Acyclovir [facility] [id number] 400 MG Orally November 18, Active 1 tablet Three times a day 2018 Results No Known Results Summary Purpose [employer] Submission
--- OUTSIDE RECORDS SUMMARY | 2018-11-28 17:16 | XMS REPORT ---
:1990 Author Organization [facility] Address [address] [place] [address] [place] [id number] Care Team Providers Name Role Phone BLAYNE [...] 1\T\2 ANTIBODY (2) (BEAKER) (test Nonreactive Nonreactive ptbv=5140) BASIC METABOLIC [id number] 06:30:00 Test Item Value Reference Range Comments SODIUM (BEAKER) (test 139 meq/L 136-145 zoxu=730) POTASSIUM (BEAKER) (test 3.8 meq/L 3.5-5.1 humv=739) CHLORIDE (BEAKER) (test 107 meq/L 98-107 qvdl=259) CO2 (BEAKER) (test 26 meq/L 22-29 pvii=438) BLOOD UREA NITROGEN 11 mg/dL 7-21 (BEAKER) (test ield=226) CREATININE (BEAKER) (test 0.65 mg/dL 0.57-1.25 oewv=022) GLUCOSE RANDOM (BEAKER) 98 mg/dL 70-105 (test ivap=598) CALCIUM (BEAKER) (test 8.7 mg/dL 8.4-10.2 vyoa=868) EGFR (BEAKER) (test mL/min/1.73 sq m INSUFFICIENT CLINICAL DATA jyet=9772) TO CALCULATE ESTIMATED GFR. [id number] 06:19:00 Test Item Value Reference Range Comments PHOSPHORUS (BEAKER) (test cnej=229) 1.9 mg/dL 2.3-4.7 [id number] 06:19:00 Test Item Value Reference Range Comments MAGNESIUM (BEAKER) (test jsdr=104) 1.8 mg/dL 1.6-2.6 HEPATIC FUNCTION [id number] 06:19:00 Test Item Value Reference Range Comments TOTAL PROTEIN (BEAKER) (test xqqn=904) 6.2 gm/dL 6.0-8.3 ALBUMIN (BEAKER) (test xqid=2006) 3.6 g/dL 3.5-5.0 BILIRUBIN TOTAL (BEAKER) (test wsao=068) 0.7 mg/dL 0.2-1.2 BILIRUBIN DIRECT (BEAKER) (test dpmg=599) 0.3 mg/dL 0.1-0.5 ALKALINE PHOSPHATASE (BEAKER) (test boao=385) 93 U/L 40-150 AST (SGOT) (BEAKER) (test msiv=937) 10 U/L 5-34 ALT (SGPT) (BEAKER) (test bzff=953) 7 U/L 6-55 CBC W/PLT COUNT & AUTO [id number] 06:11:00 Test Item Value Reference Range Comments WHITE BLOOD CELL COUNT (BEAKER) (test glzi=362) 6.9 K/ L 3.5-10.5 RED BLOOD CELL COUNT (BEAKER) (test cgsx=898) 3.92 M/ L 3.93-5.22 HEMOGLOBIN (BEAKER) (test nsnf=545) 11.9 GM/DL 11.2-15.7 HEMATOCRIT (BEAKER) (test zkbo=262) 35.7 % 34.1-44.9 MEAN CORPUSCULAR VOLUME (BEAKER) (test wecb=084) 91.1 fL 79.4-94.8 MEAN CORPUSCULAR HEMOGLOBIN (BEAKER) (test 30.4 pg 25.6-32.2 wqby=086) MEAN CORPUSCULAR HEMOGLOBIN CONC (BEAKER) (test 33.3 GM/DL 32.2-35.5 ccqq=286) RED CELL DISTRIBUTION WIDTH (BEAKER) (test 12.3 % 11.7-14.4 mytc=069) PLATELET COUNT (BEAKER) (test dubc=031) 204 K/CU MM 150-450 MEAN PLATELET VOLUME (BEAKER) (test fqya=725) 11.2 fL 9.4-12.3 NUCLEATED RED BLOOD CELLS (BEAKER) (test 0 /100 WBC 0-0 lxlp=277) NEUTROPHILS RELATIVE PERCENT (BEAKER) (test 72 % nrtg=498) LYMPHOCYTES RELATIVE PERCENT (BEAKER) (test 21 % nyix=229) MONOCYTES RELATIVE PERCENT (BEAKER) (test 6 % jfbx=534) EOSINOPHILS RELATIVE PERCENT (BEAKER) (test 1 % klht=674) BASOPHILS RELATIVE PERCENT (BEAKER) (test 0 % wonn=991) NEUTROPHILS ABSOLUTE COUNT (BEAKER) (test 5.00 K/ L 1.56-6.13 nqmi=880) LYMPHOCYTES ABSOLUTE COUNT (BEAKER) (test 1.44 K/ L 1.18-3.74 ndjv=770) MONOCYTES ABSOLUTE COUNT (BEAKER) (test 0.39 K/ L 0.24-0.36 nepn=322) EOSINOPHILS ABSOLUTE COUNT (BEAKER) (test 0.07 K/ L 0.04-0.36 jbth=161) BASOPHILS ABSOLUTE COUNT (BEAKER) (test 0.02 K/ L 0.01-0.08 dpsp=822) IMMATURE GRANULOCYTES-RELATIVE PERCENT (BEAKER) 0 % 0-1 (test rzqt=1735) BASIC METABOLIC [id number] 10:11:00 Test Item Value Reference Range Comments SODIUM (BEAKER) (test 136 meq/L 136-145 iefp=519) POTASSIUM (BEAKER) (test 3.2 meq/L 3.5-5.1 irdr=306) CHLORIDE (BEAKER) (test 107 meq/L 98-107 ijcy=282) CO2 (BEAKER) (test 25 meq/L 22-29 zgbb=277) BLOOD UREA NITROGEN 7 mg/dL 7-21 (BEAKER) (test epde=527) CREATININE (BEAKER) (test 0.62 mg/dL 0.57-1.25 munv=469) GLUCOSE RANDOM (BEAKER) 106 mg/dL 70-105 (test pzch=808) CALCIUM (BEAKER) (test 8.9 mg/dL 8.4-10.2 emcs=973) EGFR (BEAKER) (test mL/min/1.73 sq m INSUFFICIENT CLINICAL DATA flru=0368) TO CALCULATE ESTIMATED GFR. [id number] 09:56:00 Test Item Value Reference Range Comments PHOSPHORUS (BEAKER) (test gnry=010) 1.6 mg/dL 2.3-4.7 [id number] 09:56:00 Test Item Value Reference Range Comments MAGNESIUM (BEAKER) (test xxqe=563) 2.0 mg/dL 1.6-2.6 HEPATIC FUNCTION [id number] 09:56:00 Test Item Value Reference Range Comments TOTAL PROTEIN (BEAKER) (test bxsc=140) 6.3 gm/dL 6.0-8.3 ALBUMIN (BEAKER) (test qbjs=3237) 3.7 g/dL 3.5-5.0 BILIRUBIN TOTAL (BEAKER) (test dlxo=407) 1.4 mg/dL 0.2-1.2 BILIRUBIN DIRECT (BEAKER) (test wetp=353) 0.6 mg/dL 0.1-0.5 ALKALINE PHOSPHATASE (BEAKER) (test uxrn=975) 97 U/L 40-150 AST (SGOT) (BEAKER) (test usfp=273) 10 U/L 5-34 ALT (SGPT) (BEAKER) (test jehx=795) 8 U/L 6-55 CBC W/PLT COUNT & AUTO [id number] 09:53:00 Test Item Value Reference Range Comments WHITE BLOOD CELL COUNT (BEAKER) (test ewsi=969) 9.0 K/ L 3.5-10.5 RED BLOOD CELL COUNT (BEAKER) (test idee=714) 3.90 M/ L 3.93-5.22 HEMOGLOBIN (BEAKER) (test efxc=422) 11.8 GM/DL 11.2-15.7 HEMATOCRIT (BEAKER) (test upsx=671) 35.5 % 34.1-44.9 MEAN CORPUSCULAR VOLUME (BEAKER) (test athq=757) 91.0 fL 79.4-94.8 MEAN CORPUSCULAR HEMOGLOBIN (BEAKER) (test 30.3 pg 25.6-32.2 ntlj=521) MEAN CORPUSCULAR HEMOGLOBIN CONC (BEAKER) (test 33.2 GM/DL 32.2-35.5 xklg=677) RED CELL DISTRIBUTION WIDTH (BEAKER) (test 12.0 % 11.7-14.4 eucd=195) PLATELET COUNT (BEAKER) (test xouh=239) 212 K/CU MM 150-450 MEAN PLATELET VOLUME (BEAKER) (test nzwl=266) 10.8 fL 9.4-12.3 NUCLEATED RED BLOOD CELLS (BEAKER) (test 0 /100 WBC 0-0 npkv=581) NEUTROPHILS RELATIVE PERCENT (BEAKER) (test 69 % etyz=932) LYMPHOCYTES RELATIVE PERCENT (BEAKER) (test 24 % kwwv=691) MONOCYTES RELATIVE PERCENT (BEAKER) (test 5 % efps=052) EOSINOPHILS RELATIVE PERCENT (BEAKER) (test 1 % mobc=414) BASOPHILS RELATIVE PERCENT (BEAKER) (test 0 % vuss=656) NEUTROPHILS ABSOLUTE COUNT (BEAKER) (test 6.21 K/ L 1.56-6.13 ikgr=249) LYMPHOCYTES ABSOLUTE COUNT (BEAKER) (test 2.19 K/ L 1.18-3.74 ttum=328) MONOCYTES ABSOLUTE COUNT (BEAKER) (test 0.49 K/ L 0.24-0.36 mvpx=600) EOSINOPHILS ABSOLUTE COUNT (BEAKER) (test 0.08 K/ L 0.04-0.36 gmec=279) BASOPHILS ABSOLUTE COUNT (BEAKER) (test 0.03 K/ L 0.01-0.08 szit=661) IMMATURE GRANULOCYTES-RELATIVE PERCENT (BEAKER) 0 % 0-1 (test wmmh=5955)
--- OUTSIDE RECORDS SUMMARY | 2018-11-28 17:16 | XMS REPORT ---
[...] Status Dosage Acyclovir [facility] [id number] 400 MG Orally November 18, Active 1 tablet Three times a day 2017 Results No Known Results Summary Purpose eClinicalWorks Submission
--- OUTSIDE RECORDS SUMMARY | 2018-11-28 17:16 | XMS REPORT | Clinical Summary ---
:1990 Author Organization [facility] Address [address] [place] [address] Care Team Providers Name Role Phone Mal [...] Not on file Results Not on fileafter 11/27/2017 Insurance Payer Benefit Plan / Group Subscriber ID Type Phone Address [employer] [address] (Home) [place] [address] Advance Directives For more information, please contact:[facility] [phone] Code Status Date Activated Date Inactivated Comments Full Code 02/02/2017 12:13 AM 02/04/2017 2:39 PM This code status was determined by: Patient
[2018-11-28] MEDS ORDERED: METOCLOPRAMIDE 10 MG/2mL INJ ONE (17:56)
[2018-11-28] MEDS ORDERED: DIPHENHYDRAMINE 50 MG/ML VIAL ONE (17:56)
[2018-11-28] MEDS ORDERED: dexAMETHasone 10 MG/ML VIAL ONE (17:56)
[2018-11-28] MEDS ORDERED: NA CHLORIDE 0.9% 1,000 ML ONE (17:57)
[2018-11-28 18:00] LABS: Urine Blood NEGATIVE (NEG); Urine Glucose NEGATIVE (NEG); Urine Protein NEGATIVE (NEG); Urine Specific Gravity 1.025 (1.005-1.030); Urine pH 6.5 (5.0-7.0)
[2018-11-28 18:03] LABS: Absolute Lymphocytes (CBC) 1.9 K/uL (0.7-4.9); Basophils % 0.9 % (0-1.3); Hematocrit 42.2 % (36.0-45.0); Lymphocytes % 23.2 % (15.3-44.8); RBC Red Blood Cell Count 4.56 M/uL (3.86-4.86)
--- NOTE | 2018-11-28 18:23 | RAD REPORT ---
EXAM DESCRIPTION: CT - Head Brain Wo Cont - 11/28/2018 6:13 pm CLINICAL HISTORY: Headache COMPARISON: October 2017 TECHNIQUE: Axial 5 mm thick images of the head were obtained without IV contrast. All CT scans are performed using dose optimization technique as appropriate and may include automated exposure control or mA/KV adjustment according to patient size. FINDINGS: No intracranial hemorrhage, mass, edema or shift of mid-line structures. No acute infarcti on changes seen. No abnormal extra-axial fluid collections. Ventricles are normal. Mastoid air cells and visualized portions of the paranasal sinuses are clear. No acute bony findings. No significant change comparison. IMPRESSION: Negative non-contrast CT head examination.
[2018-11-28] MEDS ORDERED: MEPERIDINE HCL 50 MG/ML AMP ONE (18:29)
[2018-11-28 18:39] LABS: BUN Blood Urea Nitrogen 10 mg/dL (7-18); Bicarbonate 20 mmol/L (21-32); Glucose Level 89 mg/dL (74-106); Potassium 4.2 mmol/L (3.5-5.1); Sodium Level 137 mmol/L (136-145)
[2018-11-28] MEDS ORDERED: ACYCLOVIR 400 MG TABLET ONE (18:42)
--- NOTE | 2018-11-28 19:33 | ER ---
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 Transition of care: patient was not received from another setting of care. Onset of symptoms was November 28, 2018. Risk Assessment: Do you want to hurt yourself or someone else? Patient reports no desire to harm self or others. Initial Sepsis Screen: Does the patient meet any 2 criteria? No. Patient's initial sepsis screen is negative. Does the patient have a suspected source of infection? No. Patient's initial sepsis screen is negative. Care prior to arrival: None. 17:18 Method Of Arrival: Ambulatory 17:18 Acuity: [place] 3 Triage Assessment: 17:20 General: Appears in no apparent distress. uncomfortable, obese, Behavior is bp cooperative, appropriate for age, anxious. Pain: Complains of pain in head, back of neck and back. EENT: No deficits noted. Neuro: No deficits noted. Cardiovascular: No deficits noted. Respiratory: No deficits noted. GI: Reports nausea. : No signs and/or symptoms were reported regarding the genitourinary system. Derm: No deficits noted. Musculoskeletal: No deficits noted. FELT COVERER: 17:20 LMP 11/20/2018 Historical: - Allergies: 17:20 No Known Drug Allergies; - PMHx: 17:20 bacterial meningitis; - PSHx: 17:20 Appendectomy; ; D \T\ C; Hernia repair; hj - Immunization history:: Adult Immunizations up to date. - Social history:: Smoking status: Patient/guardian denies using tobacco. - Ebola Screening: : No symptoms or risks identified at this time. Screenin:30 Abuse screen: Denies threats or abuse. Denies injuries from another. Nutritional aj screening: No deficits noted. Tuberculosis screening: No symptoms or risk factors identified. Fall Risk None identified. Assessment: 17:30 General: Appears in no apparent distress. uncomfortable, Behavior is appropriate for aj age, crying. Pain: Complains of pain in face, scalp and back. Neuro: Level of Consciousness is awake, alert, obeys commands, Oriented to person, place, time, situation, Appropriate for age Barrel Ribs Solderer are equal bilaterally Moves all extremities. Full function Gait is steady, Speech is normal, Facial symmetry appears normal, Reports headache. Respiratory: Airway is patent Respiratory effort is even, unlabored, Respiratory pattern is regular, symmetrical. EENT: Reports photophobia. Derm: Skin is intact, is healthy with good turgor, Skin is pink, warm \T\ dry. normal. 17:30 GI: Reports nausea. aj 18:17 Reassessment: PT RETURNED FROM CT. bp 18:44 Reassessment: Patient appears in no apparent distress at this time. No changes from bp previously documented assessment. Patient and/or family updated on plan of care and expected duration. Pain level reassessed. Patient is alert, oriented x 3, equal unlabored respirations, skin warm/dry/pink. PT REFUSING LUMBAR PUNCTURE, PROVIDER NOTIFIED. 21:05 Reassessment: Patient appears in no apparent distress at this time. No changes from aj previously documented assessment. Patient and/or family updated on plan of care and expected duration. Pain level reassessed. Patient is alert, oriented x 3, equal unlabored respirations, skin warm/dry/pink. Medicated per request. Vital Signs: 17:20 BP 117 / 68; Pulse 83; Resp 16; Temp 98.5(O); Pulse Ox 96% on R/A; Weight 122.47 kg; Height 5 ft. 11 in. (180.34 cm); Pain 10/10; 18:44 BP 115 / 60; Pulse 64; Resp 20; Pulse Ox 99% on R/A; aj 21:05 BP 121 / 85; Pulse 89; Resp 18; Pulse Ox 99% on R/A; aj 17:20 Body Mass Index 37.66 (122.47 kg, 180.34 cm) ED Course: 17:17 Patient arrived in ED. mr 17:19 Triage completed. 17:19 Arm band placed on left wrist. 17:25 Kathleen Amezcua, RN is Primary Nurse. 17:30 Patient has correct armband on for positive identification. Bed in low position. Call aj light in reach. Side rails up X 1. Pulse ox on. NIBP on. 17:33 Costa Moore PA is PHCP. jr8 17:33 Bhanu Kenny MD is Attending Physician. jr8 18:00 Inserted saline lock: 20 gauge in right forearm, using aseptic technique. Blood bp collected. 18:14 CT Head Brain wo Cont In Process Unspecified. EDMS 19:31 Vince Moore MD is Referral Physician. jr8 21:05 No provider procedures requiring assistance completed. IV discontinued, intact, aj bleeding controlled, No redness/swelling at site. Pressure dressing applied. Administered Medications: 18:00 Drug: NS 0.9% 1000 ml Route: IV; Rate: 1000 ml; Site: right forearm; bp 21:06 Follow up: Response: No adverse reaction; IV Status: Completed infusion; IV Intake: aj 1000ml 18:00 Drug: Reglan 10 mg Route: IVP; Site: right forearm; bp 18:32 Follow up: Response: No adverse reaction; Pain is decreased bp 18:00 Drug: Benadryl 25 mg Route: IVP; Site: right forearm; bp 18:32 Follow up: Response: Pain is decreased bp 18:00 Drug: Decadron - Dexamethasone 10 mg Route: IVP; Site: right forearm; bp 18:32 Follow up: Response: Pain is decreased bp 18:32 Drug: Demerol 50 mg Route: IVP; Site: right forearm; bp 18:43 Follow up: Response: Pain is decreased aj 18:43 Drug: Acyclovir 400 mg Route: PO; aj 21:06 Follow up: Response: No adverse reaction aj 21:00 Drug: Dilaudid 0.5 mg Route: IVP; Site: right antecubital; aj 21:07 Follow up: Response: Medication administered at discharge. aj Intake: 21:06 IV: 1000ml; Total: 1000ml. aj Outcome: 19:32 Discharge ordered by . jr8 21:05 Discharged to home ambulatory, with family. aj 21:05 Condition: good 21:05 Discharge instructions given to patient, family, Instructed on discharge instructions, follow up and referral plans. medication usage, Demonstrated understanding of instructions, follow-up care, medications, Prescriptions given X 2. 21:19 Patient left the ED. aj Signatures: Dispatcher [employer] EDKathleen Noel RN RN aj Vesna Jenkins mr Costa Moore, MUKUL PA jr8 Pietro Carias RN RN hj Peltier, Brian, RN RN bp Corrections: (The following items were deleted from the chart) 17:21 17:20 122.47 kg; Height 5 ft. 11 in.; BMI: 37.6; Pain 10/10; hj hj 17:23 17:20 Pulse 71bpm; Resp 16bpm; Pulse Ox 96% RA; Temp 98.5F Oral; 122.47 kg; Height 5 hj ft. 11 in.; BMI: 37.6; Pain 10/10; hj 18:48 18:44 Reassessment: Patient appears in no apparent distress at this time. No changes bp from previously documented assessment. Patient and/or family updated on plan of care and expected duration. Pain level reassessed. Patient is alert, oriented x 3, equal unlabored respirations, skin warm/dry/pink. aj
--- NOTE | 2018-11-28 19:33 | EDPHYS ---
Physician Documentation [facility] Name: Elle Man Age: 28 yrs Sex: Female : 1990 Arrival Date: 11/28/2018 Time: 17:17 Bed 5 Private MD: ED Physician Bhanu Kenny HPI: 11/28 18:23 This 28 yrs old Female presents to ER via Ambulatory with complaints of Back jr8 Pain, Headache, Nausea. 18:23 Onset: The symptoms/episode began/occurred acutely, today. Associated signs and jr8 symptoms: Pertinent positives: nausea. Severity of symptoms: At their worst the symptoms were moderate, in the emergency department the symptoms are unchanged. The patient has experienced similar episodes in the past, a few times. The patient has not recently seen a physician. 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 Stated that she started to have headache, neck and back pain, along with nausea. Same symptoms as previous episodes. Last episode was about 8 months ago. Denies fevers or any other complaints currently . 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 - Social history:: Smoking status: Patient/guardian denies using tobacco. - Ebola Screening: : No symptoms or risks identified at this time. ROS: 18:23 Eyes: Negative for injury, pain, redness, and discharge, ENT: Negative for injury, jr8 pain, and discharge, Neck: Negative for injury, pain, and swelling, Cardiovascular: Negative for chest pain, palpitations, and edema, Respiratory: Negative for shortness of breath, cough, wheezing, and pleuritic chest pain, Back: Negative for injury and pain, MS/Extremity: Negative for injury and deformity, Skin: Negative for injury, rash, and discoloration. 18:23 Abdomen/GI: Positive for nausea, Negative for abdominal pain, vomiting, diarrhea, constipation, abdominal cramps, abdominal distension. 18:23 Neuro: Positive for headache, Negative for altered mental status, dizziness, gait disturbance, hearing loss, loss of consciousness, numbness, seizure activity, speech changes, syncope, near syncope, tingling, tinnitus, tremor, visual changes, weakness. Exam: 18:23 Eyes: Pupils equal round and reactive to light, extra-ocular motions intact. Lids and jr8 lashes normal. Conjunctiva and sclera are non-icteric and not injected. Cornea within normal limits. Periorbital areas with no swelling, redness, or edema. ENT: Nares patent. No nasal discharge, no septal abnormalities noted. Tympanic membranes are normal and external auditory canals are clear. Oropharynx with no redness, swelling, or masses, exudates, or evidence of obstruction, uvula midline. Mucous membranes moist. Neck: Trachea midline, no thyromegaly or masses palpated, and no cervical lymphadenopathy. Supple, full range of motion without nuchal rigidity, or vertebral point tenderness. No Meningismus. Cardiovascular: Regular rate and rhythm with a normal S1 and S2. No gallops, murmurs, or rubs. Normal PMI, no JVD. No pulse deficits. Respiratory: Lungs have equal breath sounds bilaterally, clear to auscultation and percussion. No rales, rhonchi or wheezes noted. No increased work of breathing, no retractions or nasal flaring. Abdomen/GI: Soft, non-tender, with normal bowel sounds. No distension or tympany. No guarding or rebound. No evidence of tenderness throughout. Back: No spinal tenderness. No costovertebral tenderness. Full range of motion. Skin: Warm, dry with normal turgor. Normal color with no rashes, no lesions, and no evidence of cellulitis. MS/ Extremity: Pulses equal, no cyanosis. Neurovascular intact. Full, normal range of motion. Neuro: Awake and alert, GCS 15, oriented to person, place, time, and situation. Cranial nerves II-XII grossly intact. Motor strength 5/5 in all extremities. Sensory grossly intact. Cerebellar exam normal. Normal gait. Vital Signs: 17:20 BP 117 / 68; Pulse 83; Resp 16; Temp 98.5(O); Pulse Ox 96% on R/A; Weight 122.47 kg; hj Height 5 ft. 11 in. (180.34 cm); Pain 10/10; 18:44 BP 115 / 60; Pulse 64; Resp 20; Pulse Ox 99% on R/A; aj 21:05 BP 121 / 85; Pulse 89; Resp 18; Pulse Ox 99% on R/A; aj 17:20 Body Mass Index 37.66 (122.47 kg, 180.34 cm) hj MDM: 17:33 Patient medically screened. jr8 18:34 Data reviewed: vital signs, nurses notes, lab test result(s), radiologic studies, CT jr8 scan. Data interpreted: Pulse oximetry: on room air is 96 %. Interpretation: normal. Counseling: I had a detailed discussion with the patient and/or guardian regarding: the historical points, exam findings, and any diagnostic results supporting the discharge/admit diagnosis, lab results, radiology results. ED course: Patient refuses Lumbar puncture understanding that we cannot definitively tell her whether the HSV is the cause of her headache. Other viruses and bacteria can replicate symptoms. Patient still refuses the procedure . 19:30 ED course: Will start patient on oral regimen of acyclovir incase it is HSV meningitis. jr8 Patient knows to come back if worse. Mother also present and would make sure she comes back if she changes her mind . 20:15 ED course: Dr. Moore consulted and would hold Acyclovir for now. Wants to see jr8 patient in office this week . 11/28 17:33 Order name: CBC with Diff; Complete Time: 18:15 8 11/28 17:33 Order name: Basic Metabolic Panel; Complete Time: 18:42 jr8 11/28 17:44 Order name: Urine Dipstick--Ancillary (enter results); Complete Time: 18:08 11/28 17:44 Order name: Urine --Ancillary (enter results); Complete Time: 18:08 11/28 17:51 Order name: CT Head Brain wo Cont; Complete Time: 18:25 jr8 11/28 17:33 Order name: IV; Complete Time: 17:53 jr Administered Medications: 18:00 Drug: NS 0.9% 1000 ml Route: IV; Rate: 1000 ml; Site: right forearm; bp 21:06 Follow up: Response: No adverse reaction; IV Status: Completed infusion; IV Intake: aj 1000ml 18:00 Drug: Reglan 10 mg Route: IVP; Site: right forearm; bp 18:32 Follow up: Response: No adverse reaction; Pain is decreased bp 18:00 Drug: Benadryl 25 mg Route: IVP; Site: right forearm; bp 18:32 Follow up: Response: Pain is decreased bp 18:00 Drug: Decadron - Dexamethasone 10 mg Route: IVP; Site: right forearm; bp 18:32 Follow up: Response: Pain is decreased bp 18:32 Drug: Demerol 50 mg Route: IVP; Site: right forearm; bp 18:43 Follow up: Response: Pain is decreased aj 18:43 Drug: Acyclovir 400 mg Route: PO; aj 21:06 Follow up: Response: No adverse reaction aj 21:00 Drug: Dilaudid 0.5 mg Route: IVP; Site: right antecubital; aj 21:07 Follow up: Response: Medication administered at discharge. aj Disposition: 11/28/18 19:32 Discharged to Home. Impression: Viral Cephalgia . - Condition is Stable. - Discharge Instructions: Viral Meningitis, Adult. - Prescriptions for Ibuprofen 800 mg Oral Tablet - take 1 tablet by ORAL route every 12 hours As needed take with food; 20 tablet. Tylenol- Codeine #3 300-30 mg Oral Tablet - take 2 tablets by ORAL route every 6 hours As needed; 20 tablet. - Medication Reconciliation Form, Thank You Letter, Antibiotic Education, Prescription Opioid Use form. - Follow up: Vince Moore MD; When: 2 - 3 days; Reason: Recheck today's complaints, Continuance of care, Re-evaluation by your physician. - Problem is new. - Symptoms have improved. Addendum: 11/30/2018 19:53 Co-signature as Attending Physician, Bhanu Kenny MD. r n Signatures: Dispatcher [employer] Kathleen Shelton RN Bhanu Mancini MD MD rn Roszak, Josh, PA PA jr8 Pietro Carias RN RN hj Peltier, Brian, RN RN bp Corrections: (The following items were deleted from the chart) 11/28 21:19 19:32 11/28/2018 19:32 Discharged to Home. Impression: Viral Cephalgia . Condition is aj Stable. Forms are Medication Reconciliation Form, Thank You Letter, Antibiotic Education, Prescription Opioid Use. Follow up: Vince Moore; When: 2 - 3 days; Reason: Recheck today's complaints, Continuance of care, Re-evaluation by your physician. Problem is new. Symptoms have improved. jr8
[2018-11-28] MEDS ORDERED: HYDROMORPHONE HCL 0.5 MG/0.5 ML INJ ONE (20:57)
[2018-11-28 21:26] VITALS: TEMP 98.5
[2018-11-28 21:27] VITALS: O2SAT 99
[2018-11-28 21:28] VITALS: BP 121/85
== END 2018-11-28 21:19 | disposition home or self-care (01) ==
LOC: ER 17:14
DX: G44.89 Other headache syndrome (principal)
CPT/HCPCS: 85025; 80048; 36415; 81025; 81003; 70450; 99284; J2765; J1100; J2175; J1170; J7030

== ENCOUNTER 2018-12-10 14:44 | Emergency (ER) | payer BC, SELFPAY ==
--- OUTSIDE RECORDS SUMMARY | 2018-12-10 14:47 | XMS REPORT | Clinical Summary ---
:1990 Author Organization [facility] Address [address] [place] [address] Care Team Providers Name Role Phone Mal [...] Not on file Results Not on fileafter 12/09/2017 Insurance Payer Benefit Plan / Group Subscriber ID Type Phone Address [employer] [address] (Home) [place] [address] Advance Directives For more information, please contact:[facility] [employer] [phone] Code Status Date Activated Date Inactivated Comments Full Code 02/02/2017 12:13 AM 02/04/2017 2:39 PM This code status was determined by: Patient
--- OUTSIDE RECORDS SUMMARY | 2018-12-10 14:48 | XMS REPORT ---
[...] Start Date End Date Status Dosage Acyclovir [facility] [id number] 400 MG Orally November 18, Active 1 tablet Three times a day 2017 Results No Known Results Summary Purpose eClinicalWorks Submission
--- OUTSIDE RECORDS SUMMARY | 2018-12-10 14:48 | XMS REPORT ---
:1990 [facility] Address [address] [place] [place] [id number] Care Team Providers Name Role Phone BLAYNE [...] 1\T\2 ANTIBODY (2) (BEAKER) (test Nonreactive Nonreactive xtyc=1287) BASIC METABOLIC [id number] 06:30:00 Test Item Value Reference Range Comments SODIUM (BEAKER) (test 139 meq/L 136-145 rgqo=119) POTASSIUM (BEAKER) (test 3.8 meq/L 3.5-5.1 qaem=718) CHLORIDE (BEAKER) (test 107 meq/L 98-107 mwop=441) CO2 (BEAKER) (test 26 meq/L 22-29 wirr=913) BLOOD UREA NITROGEN 11 mg/dL 7-21 (BEAKER) (test swku=370) CREATININE (BEAKER) (test 0.65 mg/dL 0.57-1.25 gphj=414) GLUCOSE RANDOM (BEAKER) 98 mg/dL 70-105 (test cvls=885) CALCIUM (BEAKER) (test 8.7 mg/dL 8.4-10.2 wuqa=370) EGFR (BEAKER) (test mL/min/1.73 sq m INSUFFICIENT CLINICAL DATA opqh=9876) TO CALCULATE ESTIMATED GFR. [id number] 06:19:00 Test Item Value Reference Range Comments PHOSPHORUS (BEAKER) (test vqxn=135) 1.9 mg/dL 2.3-4.7 [id number] 06:19:00 Test Item Value Reference Range Comments MAGNESIUM (BEAKER) (test dixu=576) 1.8 mg/dL 1.6-2.6 HEPATIC FUNCTION [id number] 06:19:00 Test Item Value Reference Range Comments TOTAL PROTEIN (BEAKER) (test agva=227) 6.2 gm/dL 6.0-8.3 ALBUMIN (BEAKER) (test afmb=1021) 3.6 g/dL 3.5-5.0 BILIRUBIN TOTAL (BEAKER) (test rlvh=017) 0.7 mg/dL 0.2-1.2 BILIRUBIN DIRECT (BEAKER) (test zeyi=173) 0.3 mg/dL 0.1-0.5 ALKALINE PHOSPHATASE (BEAKER) (test jocl=044) 93 U/L 40-150 AST (SGOT) (BEAKER) (test sorv=694) 10 U/L 5-34 ALT (SGPT) (BEAKER) (test gdld=890) 7 U/L 6-55 CBC W/PLT COUNT & AUTO [id number] 06:11:00 Test Item Value Reference Range Comments WHITE BLOOD CELL COUNT (BEAKER) (test jwgg=281) 6.9 K/ L 3.5-10.5 RED BLOOD CELL COUNT (BEAKER) (test sdut=296) 3.92 M/ L 3.93-5.22 HEMOGLOBIN (BEAKER) (test fzii=246) 11.9 GM/DL 11.2-15.7 HEMATOCRIT (BEAKER) (test dbza=870) 35.7 % 34.1-44.9 MEAN CORPUSCULAR VOLUME (BEAKER) (test jxbr=353) 91.1 fL 79.4-94.8 MEAN CORPUSCULAR HEMOGLOBIN (BEAKER) (test 30.4 pg 25.6-32.2 cpvn=230) MEAN CORPUSCULAR HEMOGLOBIN CONC (BEAKER) (test 33.3 GM/DL 32.2-35.5 tsgq=197) RED CELL DISTRIBUTION WIDTH (BEAKER) (test 12.3 % 11.7-14.4 icpn=281) PLATELET COUNT (BEAKER) (test qkiz=634) 204 K/CU MM 150-450 MEAN PLATELET VOLUME (BEAKER) (test byfv=901) 11.2 fL 9.4-12.3 NUCLEATED RED BLOOD CELLS (BEAKER) (test 0 /100 WBC 0-0 fswy=317) NEUTROPHILS RELATIVE PERCENT (BEAKER) (test 72 % btmm=492) LYMPHOCYTES RELATIVE PERCENT (BEAKER) (test 21 % qwdn=739) MONOCYTES RELATIVE PERCENT (BEAKER) (test 6 % fimy=647) EOSINOPHILS RELATIVE PERCENT (BEAKER) (test 1 % mbze=281) BASOPHILS RELATIVE PERCENT (BEAKER) (test 0 % pznu=410) NEUTROPHILS ABSOLUTE COUNT (BEAKER) (test 5.00 K/ L 1.56-6.13 ftte=271) LYMPHOCYTES ABSOLUTE COUNT (BEAKER) (test 1.44 K/ L 1.18-3.74 pksx=083) MONOCYTES ABSOLUTE COUNT (BEAKER) (test 0.39 K/ L 0.24-0.36 yqul=320) EOSINOPHILS ABSOLUTE COUNT (BEAKER) (test 0.07 K/ L 0.04-0.36 jlta=843) BASOPHILS ABSOLUTE COUNT (BEAKER) (test 0.02 K/ L 0.01-0.08 fzaw=131) IMMATURE GRANULOCYTES-RELATIVE PERCENT (BEAKER) 0 % 0-1 (test kjir=5824) BASIC METABOLIC [id number] 10:11:00 Test Item Value Reference Range Comments SODIUM (BEAKER) (test 136 meq/L 136-145 aryh=544) POTASSIUM (BEAKER) (test 3.2 meq/L 3.5-5.1 rcmi=714) CHLORIDE (BEAKER) (test 107 meq/L 98-107 fjub=875) CO2 (BEAKER) (test 25 meq/L 22-29 yetv=216) BLOOD UREA NITROGEN 7 mg/dL 7-21 (BEAKER) (test ojsi=706) CREATININE (BEAKER) (test 0.62 mg/dL 0.57-1.25 wqci=287) GLUCOSE RANDOM (BEAKER) 106 mg/dL 70-105 (test tdnl=972) CALCIUM (BEAKER) (test 8.9 mg/dL 8.4-10.2 aeax=768) EGFR (BEAKER) (test mL/min/1.73 sq m INSUFFICIENT CLINICAL DATA llnh=1516) TO CALCULATE ESTIMATED GFR. [id number] 09:56:00 Test Item Value Reference Range Comments PHOSPHORUS (BEAKER) (test hjug=612) 1.6 mg/dL 2.3-4.7 [id number] 09:56:00 Test Item Value Reference Range Comments MAGNESIUM (BEAKER) (test jghn=080) 2.0 mg/dL 1.6-2.6 HEPATIC FUNCTION [id number] 09:56:00 Test Item Value Reference Range Comments TOTAL PROTEIN (BEAKER) (test ttpl=877) 6.3 gm/dL 6.0-8.3 ALBUMIN (BEAKER) (test qtvk=4372) 3.7 g/dL 3.5-5.0 BILIRUBIN TOTAL (BEAKER) (test xkes=088) 1.4 mg/dL 0.2-1.2 BILIRUBIN DIRECT (BEAKER) (test wnjy=841) 0.6 mg/dL 0.1-0.5 ALKALINE PHOSPHATASE (BEAKER) (test gxej=785) 97 U/L 40-150 AST (SGOT) (BEAKER) (test artw=237) 10 U/L 5-34 ALT (SGPT) (BEAKER) (test fdxt=783) 8 U/L 6-55 CBC W/PLT COUNT & AUTO [id number] 09:53:00 Test Item Value Reference Range Comments WHITE BLOOD CELL COUNT (BEAKER) (test hojl=930) 9.0 K/ L 3.5-10.5 RED BLOOD CELL COUNT (BEAKER) (test rllm=977) 3.90 M/ L 3.93-5.22 HEMOGLOBIN (BEAKER) (test wzwk=478) 11.8 GM/DL 11.2-15.7 HEMATOCRIT (BEAKER) (test qfzj=303) 35.5 % 34.1-44.9 MEAN CORPUSCULAR VOLUME (BEAKER) (test mcrw=764) 91.0 fL 79.4-94.8 MEAN CORPUSCULAR HEMOGLOBIN (BEAKER) (test 30.3 pg 25.6-32.2 vgvc=242) MEAN CORPUSCULAR HEMOGLOBIN CONC (BEAKER) (test 33.2 GM/DL 32.2-35.5 mtxl=182) RED CELL DISTRIBUTION WIDTH (BEAKER) (test 12.0 % 11.7-14.4 fgmj=747) PLATELET COUNT (BEAKER) (test ioyx=068) 212 K/CU MM 150-450 MEAN PLATELET VOLUME (BEAKER) (test ckpg=120) 10.8 fL 9.4-12.3 NUCLEATED RED BLOOD CELLS (BEAKER) (test 0 /100 WBC 0-0 qnyf=977) NEUTROPHILS RELATIVE PERCENT (BEAKER) (test 69 % hhww=646) LYMPHOCYTES RELATIVE PERCENT (BEAKER) (test 24 % zbvy=708) MONOCYTES RELATIVE PERCENT (BEAKER) (test 5 % tjiy=286) EOSINOPHILS RELATIVE PERCENT (BEAKER) (test 1 % cnst=305) BASOPHILS RELATIVE PERCENT (BEAKER) (test 0 % zqyh=003) NEUTROPHILS ABSOLUTE COUNT (BEAKER) (test 6.21 K/ L 1.56-6.13 ougo=926) LYMPHOCYTES ABSOLUTE COUNT (BEAKER) (test 2.19 K/ L 1.18-3.74 ziqm=965) MONOCYTES ABSOLUTE COUNT (BEAKER) (test 0.49 K/ L 0.24-0.36 rfdh=316) EOSINOPHILS ABSOLUTE COUNT (BEAKER) (test 0.08 K/ L 0.04-0.36 gkfj=864) BASOPHILS ABSOLUTE COUNT (BEAKER) (test 0.03 K/ L 0.01-0.08 wqnt=549) IMMATURE GRANULOCYTES-RELATIVE PERCENT (BEAKER) 0 % 0-1 (test dhja=0853)
--- OUTSIDE RECORDS SUMMARY | 2018-12-10 14:48 | XMS REPORT ---
:1990 Author Organization eClinicalWorks Care Team Providers Name Role Phone Hossein Richardson Provider Role Unavailable Allergies No Known Allergies Problems Problem Type Condition Code Onset Dates Condition Status Assessment Encephalitis G04.90 Active Medications Medication Code System Code Instructions Start Date End Date Status Dosage Acyclovir [facility] [id number] 400 MG Orally November 18, Active 1 tablet Three times a day 2018 Results No Known Results Summary Purpose eClinicalGeneriMed Submission
--- NOTE | 2018-12-10 15:24 | ER ---
Nurse's Notes [facility] Name: Elle Man Age: 28 yrs Sex: Female : 1990 Arrival Date: 12/10/2018 Time: 14:46 Bed 12 Private MD: Diagnosis: Local infection of the skin and subcutaneous tissue, unspecified;Vesicular lesions Presentation: 12/10 14:59 Presenting complaint: Patient states: I went on a cruise to [facility] and I went la1 tanning and this patch started coming up on my right wrist and right thigh. Transition of care: patient was not received from another setting of care. Onset of symptoms was December 10, 2018. Risk Assessment: Do you want to hurt yourself or someone else? Patient reports no desire to harm self or others. Initial Sepsis Screen: Does the patient meet any 2 criteria? No. Patient's initial sepsis screen is negative. Does the patient have a suspected source of infection? No. Patient's initial sepsis screen is negative. Care prior to arrival: None. 14:59 Method Of Arrival: Ambulatory la1 14:59 Acuity: [place] 4 la1 Historical: - Allergies: 15:01 No Known Allergies; la1 - PMHx: 15:01 bacterial meningitis; la1 - Immunization history:: Adult Immunizations up to date. - Social history:: Smoking status: Patient/guardian denies using tobacco. - Ebola Screening: : No symptoms or risks identified at this time. Screenin:15 Abuse screen: Denies threats or abuse. Nutritional screening: No deficits noted. la1 Tuberculosis screening: No symptoms or risk factors identified. Fall Risk None identified. Assessment: 15:15 General: Appears in no apparent distress. Behavior is calm, cooperative. Pain: la1 Complains of pain in right leg and right wrist. Neuro: Level of Consciousness is awake, alert, obeys commands, Oriented to person, place, time, situation. Cardiovascular: Capillary refill < 3 seconds Patient's skin is warm and dry. Respiratory: Airway is patent Respiratory effort is even, unlabored, Respiratory pattern is regular, symmetrical. GI: No signs and/or symptoms were reported involving the gastrointestinal system. : No signs and/or symptoms were reported regarding the genitourinary system. Derm: Rash noted that is red, vesicular, on right leg and right wrist. Vital Signs: 15:01 BP 131 / 80; Pulse 84; Resp 16; Temp 97.6; Pulse Ox 98% on R/A; Weight 117.93 kg; la1 Height 5 ft. 11 in. (180.34 cm); 15:01 Body Mass Index 36.26 (117.93 kg, 180.34 cm) la1 ED Course: 14:46 Patient arrived in ED. as 14:57 [facility] Cardenas [facility]-C [facility] kb 14:57 Bhanu Kenny MD is Attending Physician. kb 15:00 Triage completed. la1 15:01 Arm band placed on left wrist. la1 15:16 Patient has correct armband on for positive identification. la1 15:32 Sandra Baker, RN is Primary Nurse. iw 15:44 No provider procedures requiring assistance completed. Patient did not have IV access la1 during this emergency room visit. Administered Medications: 15:40 Drug: Bactrim (160 mg-800 mg (DS) 1 tablet Route: PO; iw 15:44 Follow up: Response: No adverse reaction la1 15:40 Drug: Valtrex 1000 mg Route: PO; iw 15:44 Follow up: Response: No adverse reaction la1 15:40 Drug: Doxycycline 100 mg Route: PO; iw 15:44 Follow up: Response: No adverse reaction la1 15:40 Drug: [place] 5 mg-325 mg 1 tabs Route: PO; iw 15:44 Follow up: Response: RASS: Alert and Calm (0) la1 Outcome: 15:23 Discharge ordered by MD. kb 15:45 Discharged to home ambulatory. la1 15:45 Condition: stable 15:45 Discharge instructions given to patient, Instructed on discharge instructions, follow up and referral plans. Demonstrated understanding of instructions, follow-up care, medications, Prescriptions given X 3. 15:45 Patient left the ED. la1 Signatures: Silvia Cardenas FNP-C FNP-Ckb Martinez, Amelia as Sandra Baker, ISIDRO FELIX iw Almas Orlando RN RN la1
--- NOTE | 2018-12-10 15:24 | EDPHYS ---
Physician Documentation [facility] Name: Elle Man Age: 28 yrs Sex: Female : 1990 Arrival Date: 12/10/2018 Time: 14:46 Bed 12 Private MD: ED Physician Bhanu Kenny HPI: 12/10 15:10 This 28 yrs old Female presents to ER via Ambulatory with complaints of Skin kb Problem - Blisters/Sunburn. 15:10 The patient's rash thought to be caused by exposure to sun. The rash is located on the kb right wrist and right quadriceps. The rash can be described as erythematous, vesicular. Onset: The symptoms/episode began/occurred 4 day(s) ago. Associated signs and symptoms: Pertinent positives: burning sensation, itching, Pain. Severity of symptoms: At their worst the symptoms were moderate in the emergency department the symptoms are unchanged. The patient has not experienced similar symptoms in the past. The patient has not recently seen a physician. Pt reports [place] the [place] in [place] 4 days ago. Reports redness to right wrist and thigh that developed the next day, then progressed to blistering. Now blisters are worse, right hand is swollen, reports itching, burning and pain.. Historical: - Allergies: 15:01 No Known Allergies; la1 - PMHx: 15:01 bacterial meningitis; la1 - Immunization history:: Adult Immunizations up to date. - Social history:: Smoking status: Patient/guardian denies using tobacco. - Ebola Screening: : No symptoms or risks identified at this time. ROS: 15:10 Constitutional: Negative for fever, chills, and weight loss, ENT: Negative for injury, kb pain, and discharge, Neck: Negative for injury, pain, and swelling, Cardiovascular: Negative for chest pain, palpitations, and edema, Respiratory: Negative for shortness of breath, cough, wheezing, and pleuritic chest pain, Abdomen/GI: Negative for abdominal pain, nausea, vomiting, diarrhea, and constipation, : Negative for injury, bleeding, discharge, and swelling, MS/Extremity: Negative for injury and deformity, Neuro: Negative for headache, weakness, numbness, tingling, and seizure. 15:10 Skin: Positive for rash, of the right quadriceps and right wrist. Exam: 15:10 Constitutional: This is a well developed, well nourished patient who is awake, alert, kb and in no acute distress. Head/Face: Normocephalic, atraumatic. Chest/axilla: Normal chest wall appearance and motion. Nontender with no deformity. No lesions are appreciated. Cardiovascular: Regular rate and rhythm with a normal S1 and S2. No gallops, murmurs, or rubs. Normal PMI, no JVD. No pulse deficits. Respiratory: Lungs have equal breath sounds bilaterally, clear to auscultation and percussion. No rales, rhonchi or wheezes noted. No increased work of breathing, no retractions or nasal flaring. Abdomen/GI: Soft, non-tender, with normal bowel sounds. No distension or tympany. No guarding or rebound. No evidence of tenderness throughout. Back: No spinal tenderness. No costovertebral tenderness. Full range of motion. MS/ Extremity: Pulses equal, no cyanosis. Neurovascular intact. Full, normal range of motion. Neuro: Awake and alert, GCS 15, oriented to person, place, time, and situation. Cranial nerves II-XII grossly intact. Motor strength 5/5 in all extremities. Sensory grossly intact. Cerebellar exam normal. Normal gait. 15:10 Skin: rash can be described as erythematous, vesicular, on the right quadriceps and right wrist. Vital Signs: 15:01 BP 131 / 80; Pulse 84; Resp 16; Temp 97.6; Pulse Ox 98% on R/A; Weight 117.93 kg; la1 Height 5 ft. 11 in. (180.34 cm); 15:01 Body Mass Index 36.26 (117.93 kg, 180.34 cm) la1 MDM: 15:06 Patient medically screened. kb 15:16 Data reviewed: vital signs, nurses notes. Data interpreted: Pulse oximetry: on room air kb is 98 %. Interpretation: normal. 15:22 Counseling: I had a detailed discussion with the patient and/or guardian regarding: the kb historical points, exam findings, and any diagnostic results supporting the discharge/admit diagnosis, the need for outpatient follow up, a family practitioner, to return to the emergency department if symptoms worsen or persist or if there are any questions or concerns that arise at home. Administered Medications: 15:40 Drug: Bactrim (160 mg-800 mg (DS) 1 tablet Route: PO; iw 15:44 Follow up: Response: No adverse reaction la1 15:40 Drug: Valtrex 1000 mg Route: PO; iw 15:44 Follow up: Response: No adverse reaction la1 15:40 Drug: Doxycycline 100 mg Route: PO; iw 15:44 Follow up: Response: No adverse reaction la1 15:40 Drug: [place] 5 mg-325 mg 1 tabs Route: PO; iw 15:44 Follow up: Response: RASS: Alert and Calm (0) la1 Disposition: 18:11 Co-signature as Attending Physician, Bhanu Kenny MD. rn Disposition: 12/10/18 15:23 Discharged to Home. Impression: Local infection of the skin and subcutaneous tissue, unspecified, Vesicular lesions. - Condition is Stable. - Discharge Instructions: Cellulitis, Adult, Lalp-zz-Dise, Wound Infection, [id number]. - Prescriptions for Valtrex 1 g Oral Tablet - take 1 tablet by ORAL route every 8 hours for 7 days; 21 tablet. Bactrim DS 800- 160 mg Oral Tablet - take 1 tablet by ORAL route every 12 hours for 10 days; 20 tablet. Doxycycline Hyclate 100 mg Oral Tablet - take 1 tablet by ORAL route every 12 hours; 20 tablet. - Medication Reconciliation Form, Thank You Letter, Antibiotic Education, Prescription Opioid Use form. - Follow up: Emergency Department; When: As needed; Reason: Worsening of condition. Follow up: Private Physician; When: 2 - 3 days; Reason: Recheck today's complaints, Continuance of care, Re-evaluation by your physician. Signatures: Silvia Cardenas, JOSHUA-C CHOKER SETTER-Jonathonb Sandra Baker RN RN iw Nieto, Roman, MD MD rn Attema, Lee, RN RN la1 Corrections: (The following items were deleted from the chart) 15:45 15:23 12/10/2018 15:23 Discharged to Home. Impression: Local infection of the skin and la1 subcutaneous tissue, unspecified; Vesicular lesions. Condition is Stable. Forms are Medication Reconciliation Form, Thank You Letter, Antibiotic Education, Prescription Opioid Use. Follow up: Emergency Department; When: As needed; Reason: Worsening of condition. Follow up: Private Physician; When: 2 - 3 days; Reason: Recheck today's complaints, Continuance of care, Re-evaluation by your physician. kb
[2018-12-10] MEDS ORDERED: HYDROCODONE/APAP 5/325 MG TAB ONE (15:35)
[2018-12-10] MEDS ORDERED: DOXYCYCLINE 100 MG CAP PO ONE (15:36)
[2018-12-10] MEDS ORDERED: VALACYCLOVIR 500 MG TAB ONE (15:36)
[2018-12-10] MEDS ORDERED: SMZ./TMP. 800/160 MG TABLET ONE (15:36)
[2018-12-10 16:03] VITALS: BP 131/80; TEMP 97.6; O2SAT 98
== END 2018-12-10 15:45 | disposition home or self-care (01) ==
LOC: ER 14:44
DX: L08.9 Local infection of the skin and subcutaneous tissue, unspecified (principal); R23.8 Other skin changes
CPT/HCPCS: 99283

== ENCOUNTER 2018-12-10 20:27 | Emergency (ER) | payer SELFPAY ==
--- OUTSIDE RECORDS SUMMARY | 2018-12-10 20:30 | XMS REPORT ---
:1990 Author Organization [employer] Care Team Providers Name Role Phone Hossein Richardson Provider Role Unavailable Allergies No Known Allergies Problems Problem Type Condition Code Onset Dates Condition Status Assessment Encephalitis G04.90 Active Medications Medication Code System Code Instructions Start Date End Date Status Dosage Acyclovir [facility] [id number] 400 MG Orally November 18, Active 1 tablet Three times a day 2018 Results No Known Results Summary Purpose [employer] Submission
--- OUTSIDE RECORDS SUMMARY | 2018-12-10 20:30 | XMS REPORT | Clinical Summary ---
:1990 Author Organization [facility] Address [address] [place] [address] Care Team Providers Name Role Phone Mal [...] MEDICAID MEDICAID [address] x[address] (Home) [place] [address] Advance Directives For more information, please contact:[facility] [phone] Code Status Date Activated Date Inactivated Comments Full Code 02/02/2017 12:13 AM 02/04/2017 2:39 PM This code status was determined by: Patient
--- OUTSIDE RECORDS SUMMARY | 2018-12-10 20:30 | XMS REPORT ---
[...] Start Date End Date Status Dosage Acyclovir [facility] [id number] 400 MG Orally November 18, Active 1 tablet Three times a day 2017 Results No Known Results Summary Purpose [employer] Submission
--- OUTSIDE RECORDS SUMMARY | 2018-12-10 20:30 | XMS REPORT ---
:1990 Author Organization [facility] Address [address] [place] [place] [id number] Care Team Providers Name Role Phone BLAYNE [...] 1\T\2 ANTIBODY (2) (BEAKER) (test Nonreactive Nonreactive pmer=9232) BASIC METABOLIC [id number] 06:30:00 Test Item Value Reference Range Comments SODIUM (BEAKER) (test 139 meq/L 136-145 ybly=478) POTASSIUM (BEAKER) (test 3.8 meq/L 3.5-5.1 tzoo=999) CHLORIDE (BEAKER) (test 107 meq/L 98-107 naar=064) CO2 (BEAKER) (test 26 meq/L 22-29 cusa=117) BLOOD UREA NITROGEN 11 mg/dL 7-21 (BEAKER) (test lsau=010) CREATININE (BEAKER) (test 0.65 mg/dL 0.57-1.25 ssac=904) GLUCOSE RANDOM (BEAKER) 98 mg/dL 70-105 (test hdlq=741) CALCIUM (BEAKER) (test 8.7 mg/dL 8.4-10.2 zcit=775) EGFR (BEAKER) (test mL/min/1.73 sq m INSUFFICIENT CLINICAL DATA nspl=8695) TO CALCULATE ESTIMATED GFR. [id number] 06:19:00 Test Item Value Reference Range Comments PHOSPHORUS (BEAKER) (test kupd=603) 1.9 mg/dL 2.3-4.7 [id number] 06:19:00 Test Item Value Reference Range Comments MAGNESIUM (BEAKER) (test ggxt=497) 1.8 mg/dL 1.6-2.6 HEPATIC FUNCTION [id number] 06:19:00 Test Item Value Reference Range Comments TOTAL PROTEIN (BEAKER) (test xiuk=297) 6.2 gm/dL 6.0-8.3 ALBUMIN (BEAKER) (test zacg=8562) 3.6 g/dL 3.5-5.0 BILIRUBIN TOTAL (BEAKER) (test fgcc=418) 0.7 mg/dL 0.2-1.2 BILIRUBIN DIRECT (BEAKER) (test xjrx=771) 0.3 mg/dL 0.1-0.5 ALKALINE PHOSPHATASE (BEAKER) (test ytku=922) 93 U/L 40-150 AST (SGOT) (BEAKER) (test xvib=537) 10 U/L 5-34 ALT (SGPT) (BEAKER) (test zavt=750) 7 U/L 6-55 CBC W/PLT COUNT & AUTO [id number] 06:11:00 Test Item Value Reference Range Comments WHITE BLOOD CELL COUNT (BEAKER) (test pclo=516) 6.9 K/ L 3.5-10.5 RED BLOOD CELL COUNT (BEAKER) (test aepf=235) 3.92 M/ L 3.93-5.22 HEMOGLOBIN (BEAKER) (test trev=125) 11.9 GM/DL 11.2-15.7 HEMATOCRIT (BEAKER) (test llea=761) 35.7 % 34.1-44.9 MEAN CORPUSCULAR VOLUME (BEAKER) (test gbkb=603) 91.1 fL 79.4-94.8 MEAN CORPUSCULAR HEMOGLOBIN (BEAKER) (test 30.4 pg 25.6-32.2 zuqp=275) MEAN CORPUSCULAR HEMOGLOBIN CONC (BEAKER) (test 33.3 GM/DL 32.2-35.5 zwnz=787) RED CELL DISTRIBUTION WIDTH (BEAKER) (test 12.3 % 11.7-14.4 ywun=774) PLATELET COUNT (BEAKER) (test lrsa=706) 204 K/CU MM 150-450 MEAN PLATELET VOLUME (BEAKER) (test dpkw=865) 11.2 fL 9.4-12.3 NUCLEATED RED BLOOD CELLS (BEAKER) (test 0 /100 WBC 0-0 upmq=883) NEUTROPHILS RELATIVE PERCENT (BEAKER) (test 72 % uysv=794) LYMPHOCYTES RELATIVE PERCENT (BEAKER) (test 21 % jelv=962) MONOCYTES RELATIVE PERCENT (BEAKER) (test 6 % ejxn=025) EOSINOPHILS RELATIVE PERCENT (BEAKER) (test 1 % pvcw=290) BASOPHILS RELATIVE PERCENT (BEAKER) (test 0 % hpkd=060) NEUTROPHILS ABSOLUTE COUNT (BEAKER) (test 5.00 K/ L 1.56-6.13 eopj=109) LYMPHOCYTES ABSOLUTE COUNT (BEAKER) (test 1.44 K/ L 1.18-3.74 skvi=697) MONOCYTES ABSOLUTE COUNT (BEAKER) (test 0.39 K/ L 0.24-0.36 llzd=445) EOSINOPHILS ABSOLUTE COUNT (BEAKER) (test 0.07 K/ L 0.04-0.36 diif=431) BASOPHILS ABSOLUTE COUNT (BEAKER) (test 0.02 K/ L 0.01-0.08 mrpu=978) IMMATURE GRANULOCYTES-RELATIVE PERCENT (BEAKER) 0 % 0-1 (test vdlf=2851) BASIC METABOLIC [id number] 10:11:00 Test Item Value Reference Range Comments SODIUM (BEAKER) (test 136 meq/L 136-145 fgbk=781) POTASSIUM (BEAKER) (test 3.2 meq/L 3.5-5.1 kitf=139) CHLORIDE (BEAKER) (test 107 meq/L 98-107 gnyt=832) CO2 (BEAKER) (test 25 meq/L 22-29 kthu=416) BLOOD UREA NITROGEN 7 mg/dL 7-21 (BEAKER) (test aubl=495) CREATININE (BEAKER) (test 0.62 mg/dL 0.57-1.25 owgm=179) GLUCOSE RANDOM (BEAKER) 106 mg/dL 70-105 (test ohhm=708) CALCIUM (BEAKER) (test 8.9 mg/dL 8.4-10.2 ozto=343) EGFR (BEAKER) (test mL/min/1.73 sq m INSUFFICIENT CLINICAL DATA zqpj=2808) TO CALCULATE ESTIMATED GFR. [id number] 09:56:00 Test Item Value Reference Range Comments PHOSPHORUS (BEAKER) (test pdbz=808) 1.6 mg/dL 2.3-4.7 [id number] 09:56:00 Test Item Value Reference Range Comments MAGNESIUM (BEAKER) (test uaki=434) 2.0 mg/dL 1.6-2.6 HEPATIC FUNCTION [id number] 09:56:00 Test Item Value Reference Range Comments TOTAL PROTEIN (BEAKER) (test vcfr=787) 6.3 gm/dL 6.0-8.3 ALBUMIN (BEAKER) (test wgpf=4555) 3.7 g/dL 3.5-5.0 BILIRUBIN TOTAL (BEAKER) (test llhz=399) 1.4 mg/dL 0.2-1.2 BILIRUBIN DIRECT (BEAKER) (test ties=782) 0.6 mg/dL 0.1-0.5 ALKALINE PHOSPHATASE (BEAKER) (test bscg=116) 97 U/L 40-150 AST (SGOT) (BEAKER) (test ifjz=008) 10 U/L 5-34 ALT (SGPT) (BEAKER) (test iiyo=170) 8 U/L 6-55 CBC W/PLT COUNT & AUTO [id number] 09:53:00 Test Item Value Reference Range Comments WHITE BLOOD CELL COUNT (BEAKER) (test zbym=384) 9.0 K/ L 3.5-10.5 RED BLOOD CELL COUNT (BEAKER) (test jkqn=757) 3.90 M/ L 3.93-5.22 HEMOGLOBIN (BEAKER) (test ggaa=691) 11.8 GM/DL 11.2-15.7 HEMATOCRIT (BEAKER) (test okge=515) 35.5 % 34.1-44.9 MEAN CORPUSCULAR VOLUME (BEAKER) (test grgy=371) 91.0 fL 79.4-94.8 MEAN CORPUSCULAR HEMOGLOBIN (BEAKER) (test 30.3 pg 25.6-32.2 qofm=801) MEAN CORPUSCULAR HEMOGLOBIN CONC (BEAKER) (test 33.2 GM/DL 32.2-35.5 llno=908) RED CELL DISTRIBUTION WIDTH (BEAKER) (test 12.0 % 11.7-14.4 jkmo=607) PLATELET COUNT (BEAKER) (test mluk=782) 212 K/CU MM 150-450 MEAN PLATELET VOLUME (BEAKER) (test pufr=781) 10.8 fL 9.4-12.3 NUCLEATED RED BLOOD CELLS (BEAKER) (test 0 /100 WBC 0-0 ehbo=922) NEUTROPHILS RELATIVE PERCENT (BEAKER) (test 69 % wczw=300) LYMPHOCYTES RELATIVE PERCENT (BEAKER) (test 24 % azyr=848) MONOCYTES RELATIVE PERCENT (BEAKER) (test 5 % pnea=172) EOSINOPHILS RELATIVE PERCENT (BEAKER) (test 1 % nkwb=759) BASOPHILS RELATIVE PERCENT (BEAKER) (test 0 % seyr=184) NEUTROPHILS ABSOLUTE COUNT (BEAKER) (test 6.21 K/ L 1.56-6.13 bhxd=648) LYMPHOCYTES ABSOLUTE COUNT (BEAKER) (test 2.19 K/ L 1.18-3.74 msrm=675) MONOCYTES ABSOLUTE COUNT (BEAKER) (test 0.49 K/ L 0.24-0.36 zexu=411) EOSINOPHILS ABSOLUTE COUNT (BEAKER) (test 0.08 K/ L 0.04-0.36 sodh=236) BASOPHILS ABSOLUTE COUNT (BEAKER) (test 0.03 K/ L 0.01-0.08 vguw=058) IMMATURE GRANULOCYTES-RELATIVE PERCENT (BEAKER) 0 % 0-1 (test ybdj=8865)
[2018-12-10 21:14] LABS: Absolute Lymphocytes (CBC) 2.4 K/uL (0.7-4.9); Basophils % 0.6 % (0-1.3); Hematocrit 38.5 % (36.0-45.0); Lymphocytes % 21.3 % (15.3-44.8); MPV 8.7 fL (7.6-11.3); RBC Red Blood Cell Count 4.19 M/uL (3.86-4.86)
[2018-12-10] MEDS ORDERED: HYDROCODONE/APAP 10/325 TAB ONE (21:20)
[2018-12-10 21:28] LABS: Potassium 3.8 mmol/L (3.5-5.1)
[2018-12-10] MEDS ORDERED: CLINDAMYCIN 600MG/D5W 600 MG/50 ML BAG IV ONE (22:22)
[2018-12-10] MEDS ORDERED: NA CHLORIDE 0.9% 1,000 ML ONE (23:28)
[2018-12-10] MEDS ORDERED: Meropenem 1 GM/100 ML BAG ONE (23:28)
[2018-12-10] MEDS ORDERED: ONDANSETRON 4 MG/2 ML VIAL ONE (23:28)
[2018-12-10] MEDS ORDERED: MORPHINE 4 MG/ML SYR ONE (23:28)
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
--- NOTE | 2018-12-10 23:57 | EDPHYS ---
Physician Documentation [facility] Name: Elle Man Age: 28 yrs Sex: Female : 1990 Arrival Date: 12/10/2018 Time: 20:36 Bed 13 Private MD: ED Physician Jerod Pinto HPI: 12/10 22:03 This 28 yrs old Female presents to ER via Ambulatory with complaints of rash. kb 22:14 The patient presents with cellulitis of the right hand and right wrist. Description: kb erythematous, swollen, warm. Onset: The symptoms/episode began/occurred 4 day(s) ago. Possible cause(s): unknown. Associated signs and symptoms: Pertinent positives: erythema, swelling. Modifying factors: the symptoms are alleviated by nothing, the symptoms are aggravated by nothing. Severity of symptoms: At their worst the symptoms were moderate, in the emergency department the symptoms are unchanged. The patient has not experienced similar symptoms in the past. The patient has been recently seen at the [facility] Emergency Department, today, by me, for similar complaints was given a prescription for antibiotics, the patient was told to return for a recheck. Pt was here earlier today for same symptoms. Started on Bactrim, Doxycycline and Valtrex. Came back because swelling and redness of hand got worse. . 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 - Social history:: Smoking status: Patient/guardian denies using tobacco. - Ebola Screening: : No symptoms or risks identified at this time. ROS: 22:09 Constitutional: Negative for fever, chills, and weight loss, Cardiovascular: Negative kb for chest pain, palpitations, and edema, Respiratory: Negative for shortness of breath, cough, wheezing, and pleuritic chest pain, Abdomen/GI: Negative for abdominal pain, nausea, vomiting, diarrhea, and constipation, Back: Negative for injury and pain, : Negative for injury, bleeding, discharge, and swelling, MS/Extremity: Negative for injury and deformity, Neuro: Negative for headache, weakness, numbness, tingling, and seizure. 22:09 Skin: Positive for cellulitis, erythema, rash, swelling. Exam: 22:01 Constitutional: This is a well developed, well nourished patient who is awake, alert, kb and in no acute distress. Head/Face: Normocephalic, atraumatic. ENT: Nares patent. No nasal discharge, no septal abnormalities noted. Tympanic membranes are normal and external auditory canals are clear. Oropharynx with no redness, swelling, or masses, exudates, or evidence of obstruction, uvula midline. Mucous membranes moist. Neck: Trachea midline, no thyromegaly or masses palpated, and no cervical lymphadenopathy. Supple, full range of motion without nuchal rigidity, or vertebral point tenderness. No Meningismus. Chest/axilla: Normal chest wall appearance and motion. Nontender with no deformity. No lesions are appreciated. Cardiovascular: Regular rate and rhythm with a normal S1 and S2. No gallops, murmurs, or rubs. Normal PMI, no JVD. No pulse deficits. Respiratory: Lungs have equal breath sounds bilaterally, clear to auscultation and percussion. No rales, rhonchi or wheezes noted. No increased work of breathing, no retractions or nasal flaring. Abdomen/GI: Soft, non-tender, with normal bowel sounds. No distension or tympany. No guarding or rebound. No evidence of tenderness throughout. MS/ Extremity: Pulses equal, no cyanosis. Neurovascular intact. Full, normal range of motion. Neuro: Awake and alert, GCS 15, oriented to person, place, time, and situation. Cranial nerves II-XII grossly intact. Motor strength 5/5 in all extremities. Sensory grossly intact. Cerebellar exam normal. Normal gait. 22:01 Skin: cellulitis, that is moderate, on the right hand and right wrist, rash can be described as erythematous, vesicular, on the right quadriceps and left quadriceps and right wrist. Vital Signs: 20:42 BP 114 / 93; Pulse 82; Resp 16; Temp 97.1; Pulse Ox 98% on R/A; Weight 117.93 kg; la1 Height 5 ft. 11 in. (180.34 cm); 23:52 BP 119 / 61; Pulse 81; Resp 16; Temp 98.1; Pulse Ox 98% on R/A; rv 12/11 02:07 BP 115 / 64; Pulse 74; Resp 16; Pulse Ox 100% on R/A; jb4 12/10 20:42 Body Mass Index 36.26 (117.93 kg, 180.34 cm) la1 MDM: 12/10 20:46 Patient medically screened. kb 21:49 Data reviewed: vital signs, nurses notes. Data interpreted: Pulse oximetry: on room air kb is 98 %. Interpretation: normal. Counseling: I had a detailed discussion with the patient and/or guardian regarding: the historical points, exam findings, and any diagnostic results supporting the discharge/admit diagnosis, lab results, the need for further work-up and treatment in the hospital. 22:12 Physician consultation: Yasmeen Odell MD was contacted at 22:13, regarding admission, kb to the medical/surgical unit. patient's condition, and will see patient in ED, shortly. 22:59 ED course: Dr Odell saw pt in ER. Requests transfer for hand specialist. . kb 23:10 ED course: Dr Odell recommends merem iv for infectious process. . ED course: Pt reports kb norco did not help the stinging pain. Will give morphine to manage pain more effectively. 23:46 ED course: Dr Tesfaye (hand specialist) accepts pt for consult at [facility]. Awaiting kb call back from hospitalist. . 12/10 20:47 Order name: CBC with Diff 12/10 20:47 Order name: Basic Metabolic Panel; Complete Time: 21:30 12/10 20:47 Order name: Blood Culture Adult (2) 12/10 20:48 Order name: CBC with Automated Diff; Complete Time: 21:30 EDMS 12/10 20:47 Order name: IV Start; Complete Time: 21:08 12/10 23:53 Order name: Volar Wrist Splint: orthoglass splint from fingers to elbow; Complete Time: kb 00:49 Administered Medications: 21:31 Drug: Halbur 10 mg-325 mg 1 tabs Route: PO; rv 22:32 Follow up: Response: Pain is unchanged, physician notified rv 22:32 Follow up: Response: RASS: Alert and Calm (0) rv 22:32 Drug: Clindamycin 600 mg Route: IVPB; Infused Over: 30 mins; Site: left forearm; rv 23:57 Follow up: IV Status: Completed infusion rv 23:41 Drug: Meropenem 1 grams Route: IV; Rate: calculated rate; Site: left forearm; rv 23:41 Drug: NS 0.9% 1000 ml Route: IV; Rate: 1000 ml; Site: left forearm; rv 12/11 00:50 Follow up: IV Status: Completed infusion; IV Intake: 1000ml rv 12/10 23:41 Drug: morphine 4 mg Route: IVP; Site: left forearm; rv 23:41 Follow up: RASS 0 rv 12/11 00:49 Follow up: Response: Marked relief of symptoms; Pain is decreased; RASS: Alert and Calm rv (0) 12/10 23:42 Drug: Zofran 4 mg Route: IVP; Site: left forearm; rv 12/11 00:50 Follow up: Response: No adverse reaction rv 01:48 Drug: morphine 4 mg {Note: rass 0.} Route: IVP; Site: left forearm; rv 02:00 Follow up: Response: No adverse reaction; Pain is decreased; RASS: Alert and Calm (0) jb4 Disposition: 04:43 Co-signature as Attending Physician, Jerod Pinto MD I agree with the assessment and 4 plan of care. Disposition: 12/10/18 23:54 Transfer ordered to [facility]. Diagnosis are Cellulitis of right upper limb - hand, Vesicular lesions to right wrist, Vesicular lesions to right thigh. - Reason for transfer: Higher level of care. - Accepting physician is Dr Godinez. - Condition is Stable. - Problem is new. - Symptoms are unchanged. Signatures: Dispatcher [employer] EDSilvia Hurley, PSYCHOLOGICAL EXAMINER-C PSYCHOLOGICAL EXAMINER-Ckb Almas Orlando RN RN la1 Wayne Sandoval RN RN jb4 Jerod Pinto MD MD tw4 Alberto Ramirez RN RN rv Corrections: (The following items were deleted from the chart) 02:28 12/10 23:54 12/10/2018 23:54 Transfer ordered to [facility]. jb4 Diagnosis is Cellulitis of right upper limb - hand; Vesicular lesions to right wrist; Vesicular lesions to right thigh. Reason for transfer: Higher level of care. Accepting physician is Dr Godinez. Condition is Stable. Problem is new. Symptoms are unchanged. kb
[2018-12-11] MEDS ORDERED: MORPHINE 4 MG/ML SYR ONE (01:41)
[2018-12-11 03:55] VITALS: TEMP 98.1
[2018-12-11 03:56] VITALS: BP 115/64; O2SAT 100
== END 2018-12-11 02:28 | disposition short-term general hospital (02) ==
LOC: ER 20:27
PROC: 2W3DX1Z Immobilization of Left Lower Arm using Splint (ICD-10-PCS; principal; 2018-12-11)
DX: L03.113 Cellulitis of right upper limb (principal); L03.115 Cellulitis of right lower limb; R23.8 Other skin changes
CPT/HCPCS: 36415; 80048; 85025; 87040; 96361; 96365; 96375; 99285; J2185; J2405; J7030

== ENCOUNTER 2019-04-06 10:42 | Emergency (ER) | payer SELFPAY ==
--- OUTSIDE RECORDS SUMMARY | 2019-04-06 10:45 | XMS REPORT ---
:1990 Author Organization [employer] Care Team Providers Name Role Phone Hossein Richardson Provider Role Unavailable Allergies No Known Allergies Problems Problem Type Condition Code Onset Dates Condition Status Assessment Encephalitis G04.90 Active Medications Medication Code System Code Instructions Start Date End Date Status Dosage Acyclovir [facility] [id number] 400 MG Orally November 18, Active 1 tablet Three times a day 2018 Results No Known Results Summary Purpose [employer]Clinical[employer]illiant Submission
--- OUTSIDE RECORDS SUMMARY | 2019-04-06 10:45 | XMS REPORT ---
[...] Start Date End Date Status Dosage Acyclovir [facility] [id number] 400 MG Orally November 18, Active 1 tablet Three times a day 2017 Results No Known Results Summary Purpose eClinicalWorks Submission
--- OUTSIDE RECORDS SUMMARY | 2019-04-06 10:45 | XMS REPORT ---
:1990 Author Organization [facility] Address [address] [place] [place] [id number] Care Team Providers Name Role Phone BLAYNE [...] 1\T\2 ANTIBODY (2) (BEAKER) (test Nonreactive Nonreactive vwjt=5242) BASIC METABOLIC [id number] 06:30:00 Test Item Value Reference Range Comments SODIUM (BEAKER) (test 139 meq/L 136-145 pmzv=119) POTASSIUM (BEAKER) (test 3.8 meq/L 3.5-5.1 gbgc=474) CHLORIDE (BEAKER) (test 107 meq/L 98-107 wboc=551) CO2 (BEAKER) (test 26 meq/L 22-29 psff=383) BLOOD UREA NITROGEN 11 mg/dL 7-21 (BEAKER) (test gdck=095) CREATININE (BEAKER) (test 0.65 mg/dL 0.57-1.25 bgjs=950) GLUCOSE RANDOM (BEAKER) 98 mg/dL 70-105 (test fiyy=913) CALCIUM (BEAKER) (test 8.7 mg/dL 8.4-10.2 dqrg=132) EGFR (BEAKER) (test mL/min/1.73 sq m INSUFFICIENT CLINICAL DATA qhzf=3579) TO CALCULATE ESTIMATED GFR. [id number] 06:19:00 Test Item Value Reference Range Comments PHOSPHORUS (BEAKER) (test flhl=929) 1.9 mg/dL 2.3-4.7 [id number] 06:19:00 Test Item Value Reference Range Comments MAGNESIUM (BEAKER) (test bvwa=108) 1.8 mg/dL 1.6-2.6 HEPATIC FUNCTION [id number] 06:19:00 Test Item Value Reference Range Comments TOTAL PROTEIN (BEAKER) (test wlgz=398) 6.2 gm/dL 6.0-8.3 ALBUMIN (BEAKER) (test sufu=7970) 3.6 g/dL 3.5-5.0 BILIRUBIN TOTAL (BEAKER) (test jwbb=904) 0.7 mg/dL 0.2-1.2 BILIRUBIN DIRECT (BEAKER) (test ybnp=318) 0.3 mg/dL 0.1-0.5 ALKALINE PHOSPHATASE (BEAKER) (test xvdp=791) 93 U/L 40-150 AST (SGOT) (BEAKER) (test zjie=204) 10 U/L 5-34 ALT (SGPT) (BEAKER) (test sffd=982) 7 U/L 6-55 CBC W/PLT COUNT & AUTO [id number] 06:11:00 Test Item Value Reference Range Comments WHITE BLOOD CELL COUNT (BEAKER) (test rzwb=179) 6.9 K/ L 3.5-10.5 RED BLOOD CELL COUNT (BEAKER) (test xwsj=923) 3.92 M/ L 3.93-5.22 HEMOGLOBIN (BEAKER) (test ldhg=698) 11.9 GM/DL 11.2-15.7 HEMATOCRIT (BEAKER) (test ptrv=075) 35.7 % 34.1-44.9 MEAN CORPUSCULAR VOLUME (BEAKER) (test zeog=843) 91.1 fL 79.4-94.8 MEAN CORPUSCULAR HEMOGLOBIN (BEAKER) (test 30.4 pg 25.6-32.2 nnyu=013) MEAN CORPUSCULAR HEMOGLOBIN CONC (BEAKER) (test 33.3 GM/DL 32.2-35.5 nsfv=727) RED CELL DISTRIBUTION WIDTH (BEAKER) (test 12.3 % 11.7-14.4 sfhc=216) PLATELET COUNT (BEAKER) (test ggkr=291) 204 K/CU MM 150-450 MEAN PLATELET VOLUME (BEAKER) (test ptai=031) 11.2 fL 9.4-12.3 NUCLEATED RED BLOOD CELLS (BEAKER) (test 0 /100 WBC 0-0 extm=908) NEUTROPHILS RELATIVE PERCENT (BEAKER) (test 72 % wtid=318) LYMPHOCYTES RELATIVE PERCENT (BEAKER) (test 21 % ektp=963) MONOCYTES RELATIVE PERCENT (BEAKER) (test 6 % hzop=046) EOSINOPHILS RELATIVE PERCENT (BEAKER) (test 1 % nknt=786) BASOPHILS RELATIVE PERCENT (BEAKER) (test 0 % vfqq=907) NEUTROPHILS ABSOLUTE COUNT (BEAKER) (test 5.00 K/ L 1.56-6.13 rhds=662) LYMPHOCYTES ABSOLUTE COUNT (BEAKER) (test 1.44 K/ L 1.18-3.74 rmfa=493) MONOCYTES ABSOLUTE COUNT (BEAKER) (test 0.39 K/ L 0.24-0.36 brjy=250) EOSINOPHILS ABSOLUTE COUNT (BEAKER) (test 0.07 K/ L 0.04-0.36 ztxp=256) BASOPHILS ABSOLUTE COUNT (BEAKER) (test 0.02 K/ L 0.01-0.08 khpe=441) IMMATURE GRANULOCYTES-RELATIVE PERCENT (BEAKER) 0 % 0-1 (test iivz=2009) BASIC METABOLIC [id number] 10:11:00 Test Item Value Reference Range Comments SODIUM (BEAKER) (test 136 meq/L 136-145 hceh=685) POTASSIUM (BEAKER) (test 3.2 meq/L 3.5-5.1 fbww=997) CHLORIDE (BEAKER) (test 107 meq/L 98-107 gfvm=834) CO2 (BEAKER) (test 25 meq/L 22-29 iwnd=725) BLOOD UREA NITROGEN 7 mg/dL 7-21 (BEAKER) (test wtgr=995) CREATININE (BEAKER) (test 0.62 mg/dL 0.57-1.25 noax=925) GLUCOSE RANDOM (BEAKER) 106 mg/dL 70-105 (test pnqb=390) CALCIUM (BEAKER) (test 8.9 mg/dL 8.4-10.2 odlv=392) EGFR (BEAKER) (test mL/min/1.73 sq m INSUFFICIENT CLINICAL DATA ybrd=4709) TO CALCULATE ESTIMATED GFR. [id number] 09:56:00 Test Item Value Reference Range Comments PHOSPHORUS (BEAKER) (test govg=424) 1.6 mg/dL 2.3-4.7 [id number] 09:56:00 Test Item Value Reference Range Comments MAGNESIUM (BEAKER) (test imhb=289) 2.0 mg/dL 1.6-2.6 HEPATIC FUNCTION [id number] 09:56:00 Test Item Value Reference Range Comments TOTAL PROTEIN (BEAKER) (test hxhe=565) 6.3 gm/dL 6.0-8.3 ALBUMIN (BEAKER) (test igvf=8391) 3.7 g/dL 3.5-5.0 BILIRUBIN TOTAL (BEAKER) (test cpkn=655) 1.4 mg/dL 0.2-1.2 BILIRUBIN DIRECT (BEAKER) (test iwrh=688) 0.6 mg/dL 0.1-0.5 ALKALINE PHOSPHATASE (BEAKER) (test gped=575) 97 U/L 40-150 AST (SGOT) (BEAKER) (test tkum=108) 10 U/L 5-34 ALT (SGPT) (BEAKER) (test fhmc=462) 8 U/L 6-55 CBC W/PLT COUNT & AUTO [id number] 09:53:00 Test Item Value Reference Range Comments WHITE BLOOD CELL COUNT (BEAKER) (test fnee=212) 9.0 K/ L 3.5-10.5 RED BLOOD CELL COUNT (BEAKER) (test saka=928) 3.90 M/ L 3.93-5.22 HEMOGLOBIN (BEAKER) (test ovhu=370) 11.8 GM/DL 11.2-15.7 HEMATOCRIT (BEAKER) (test foea=730) 35.5 % 34.1-44.9 MEAN CORPUSCULAR VOLUME (BEAKER) (test yqiv=121) 91.0 fL 79.4-94.8 MEAN CORPUSCULAR HEMOGLOBIN (BEAKER) (test 30.3 pg 25.6-32.2 becb=430) MEAN CORPUSCULAR HEMOGLOBIN CONC (BEAKER) (test 33.2 GM/DL 32.2-35.5 xstl=492) RED CELL DISTRIBUTION WIDTH (BEAKER) (test 12.0 % 11.7-14.4 wvnp=870) PLATELET COUNT (BEAKER) (test uxhq=503) 212 K/CU MM 150-450 MEAN PLATELET VOLUME (BEAKER) (test wssc=687) 10.8 fL 9.4-12.3 NUCLEATED RED BLOOD CELLS (BEAKER) (test 0 /100 WBC 0-0 ruii=852) NEUTROPHILS RELATIVE PERCENT (BEAKER) (test 69 % aeln=027) LYMPHOCYTES RELATIVE PERCENT (BEAKER) (test 24 % anps=513) MONOCYTES RELATIVE PERCENT (BEAKER) (test 5 % cceq=258) EOSINOPHILS RELATIVE PERCENT (BEAKER) (test 1 % rfsl=811) BASOPHILS RELATIVE PERCENT (BEAKER) (test 0 % xjsl=786) NEUTROPHILS ABSOLUTE COUNT (BEAKER) (test 6.21 K/ L 1.56-6.13 krze=868) LYMPHOCYTES ABSOLUTE COUNT (BEAKER) (test 2.19 K/ L 1.18-3.74 vlnh=381) MONOCYTES ABSOLUTE COUNT (BEAKER) (test 0.49 K/ L 0.24-0.36 gnub=949) EOSINOPHILS ABSOLUTE COUNT (BEAKER) (test 0.08 K/ L 0.04-0.36 jgbn=396) BASOPHILS ABSOLUTE COUNT (BEAKER) (test 0.03 K/ L 0.01-0.08 cqbs=487) IMMATURE GRANULOCYTES-RELATIVE PERCENT (BEAKER) 0 % 0-1 (test pjyr=8652)
[2019-04-06] MEDS ORDERED: dexAMETHasone 10 MG/ML VIAL ONE (11:50)
[2019-04-06] MEDS ORDERED: KETOROLAC 30 MG/ML INJ ONE (11:50)
[2019-04-06] MEDS ORDERED: METHOCARBAMOL 1,000 MG in NA CHLORIDE 0.9% 100 ML IV ONE (12:00)
[2019-04-06] MEDS ORDERED: FENTANYL CITR 100 MCG/2 ML ONE (13:20)
[2019-04-06] MEDS ORDERED: ONDANSETRON 4 MG/2 ML VIAL ONE (13:40)
--- NOTE | 2019-04-06 13:43 | EDPHYS ---
Physician Documentation [facility] Name: Elle Man Age: 28 yrs Sex: Female : 1990 Arrival Date: 04/06/2019 Time: 10:45 Bed 13 Private MD: ED Physician Torsten Sánchez HPI: 04/06 11:32 This 28 yrs old Female presents to ER via Ambulatory with complaints of Arm jr8 Pain, Back Pain, Neck Problem. 11:32 Onset: The symptoms/episode began/occurred acutely, this morning, today. Modifying jr8 factors: The symptoms are alleviated by nothing. the symptoms are aggravated by movement. Associated signs and symptoms: The patient has no apparent associated signs or symptoms. Severity of symptoms: At their worst the symptoms were moderate, in the emergency department the symptoms are unchanged. The patient has not experienced similar symptoms in the past. The patient has not recently seen a physician. Patient stated that she was playing hard with her children last night. Stated that she started to have some right shoulder and neck pain last night. Took some medicine and went to bed. This morning had marked increase in pain. Cannot turn her head to the right or raise right arm above head . 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 - Social history:: Smoking status: Patient/guardian denies using tobacco. - Ebola Screening: : No symptoms or risks identified at this time. ROS: 11:32 Eyes: Negative for injury, pain, redness, and discharge, ENT: Negative for injury, jr8 pain, and discharge, Cardiovascular: Negative for chest pain, palpitations, and edema, Respiratory: Negative for shortness of breath, cough, wheezing, and pleuritic chest pain, Abdomen/GI: Negative for abdominal pain, nausea, vomiting, diarrhea, and constipation, Back: Negative for injury and pain, Skin: Negative for injury, rash, and discoloration, Neuro: Negative for headache, weakness, numbness, tingling, and seizure. 11:32 Neck: Positive for pain with movement, pain at rest, tenderness, Negative for bony tenderness. 11:32 MS/extremity: Positive for decreased range of motion, pain, of the right arm. Exam: 11:32 Head/Face: Normocephalic, atraumatic. Eyes: Pupils equal round and reactive to light, jr8 extra-ocular motions intact. Lids and lashes normal. Conjunctiva and sclera are non-icteric and not injected. Cornea within normal limits. Periorbital areas with no swelling, redness, or edema. ENT: Nares patent. No nasal discharge, no septal abnormalities noted. Tympanic membranes are normal and external auditory canals are clear. Oropharynx with no redness, swelling, or masses, exudates, or evidence of obstruction, uvula midline. Mucous membranes moist. Chest/axilla: Normal chest wall appearance and motion. Nontender with no deformity. No lesions are appreciated. Cardiovascular: Regular rate and rhythm with a normal S1 and S2. No gallops, murmurs, or rubs. Normal PMI, no JVD. No pulse deficits. Respiratory: Lungs have equal breath sounds bilaterally, clear to auscultation and percussion. No rales, rhonchi or wheezes noted. No increased work of breathing, no retractions or nasal flaring. Abdomen/GI: Soft, non-tender, with normal bowel sounds. No distension or tympany. No guarding or rebound. No evidence of tenderness throughout. Skin: Warm, dry with normal turgor. Normal color with no rashes, no lesions, and no evidence of cellulitis. MS/ Extremity: Pulses equal, no cyanosis. Neurovascular intact. Full, normal range of motion. Neuro: Awake and alert, GCS 15, oriented to person, place, time, and situation. Cranial nerves II-XII grossly intact. Motor strength 5/5 in all extremities. Sensory grossly intact. Cerebellar exam normal. Normal gait. 11:32 Neck: External neck: tenderness, that is moderate, of the right mid cervical area and right trapezius, C-spine: appears grossly normal, Thyroid: appears normal, Trachea: is midline with no obvious abnormalities, ROM/movement: pain, that is moderate, with rotation to the right, Meningeal signs: are not present, Kernig's sign is negative, Brudzinski's sign is negative, Lymph nodes: no appreciated lymphadenopathy. 11:32 Back: pain, that is moderate, of the right trapezius, ROM is painful, normal spinal alignment noted, CVA tenderness, is absent. Vital Signs: 10:52 BP 143 / 93; Pulse 55; Resp 16; Temp 97.9; Pulse Ox 100% on R/A; Weight 117.93 kg; hb Height 5 ft. 11 in. (180.34 cm); Pain 10/10; 10:52 Body Mass Index 36.26 (117.93 kg, 180.34 cm) hb MDM: 11:08 Patient medically screened. jr8 13:39 Data reviewed: vital signs, nurses notes, and as a result, I will discharge patient. jr8 Data interpreted: Pulse oximetry: on room air is 100 %. Interpretation: normal. Counseling: I had a detailed discussion with the patient and/or guardian regarding: the historical points, exam findings, and any diagnostic results supporting the discharge/admit diagnosis, the need for outpatient follow up, a family practitioner, to return to the emergency department if symptoms worsen or persist or if there are any questions or concerns that arise at home. Response to treatment: the patient's symptoms have mildly improved after treatment. ED course: Patient had mild relief with earlier treatment. Given Fentanyl and doing better. Will send home on medications and to f/u . 04/06 11:25 Order name: IV; Complete Time: 12:20 [facility] Administered Medications: 12:00 Drug: TORadol - Ketorolac 15 mg Route: IVP; Site: left wrist; sg 12:50 Follow up: Response: No adverse reaction; Pain is unchanged, physician notified; RASS: sg Alert and Calm (0) 12:00 Drug: Decadron - Dexamethasone 10 mg Route: IVP; Site: left wrist; sg 12:50 Follow up: Response: No adverse reaction sg 12:00 Drug: Robaxin 1 grams Route: IVPB; Infused Over: 1 hrs; Site: left wrist; sg 12:50 Follow up: Response: No adverse reaction; Pain is unchanged, physician notified; RASS: sg Alert and Calm (0); IV Status: Completed infusion 13:30 Drug: fentaNYL (PF) 75 mcg Route: IVP; Site: left wrist; sg 13:46 Drug: Zofran 4 mg Route: IVP; Site: left wrist; iw Disposition: 04/07 07:13 Co-signature as Attending Physician, Torsten Sánchez MD I agree with the assessment and kdr plan of care. Disposition: 04/06/19 13:41 Discharged to Home. Impression: Muscle spasm of back. - Condition is Stable. - Discharge Instructions: Muscle Cramps and Spasms, Back Exercises, Wfzk-st-Umlc, Heat Therapy. - Prescriptions for Ibuprofen 800 mg Oral Tablet - take 1 tablet by ORAL route every 12 hours As needed take with food; 20 tablet. Zanaflex 4 mg Oral Tablet - take 1 tablet by ORAL route every 8 hours As needed; 20 tablet. - Work release form, Medication Reconciliation Form, Thank You Letter, Antibiotic Education, Prescription Opioid Use form. - Follow up: Private Physician; When: 2 - 3 days; Reason: Recheck today's complaints, Continuance of care, Re-evaluation by your physician. - Problem is new. - Symptoms have improved. Signatures: Naveed Nunez RN RN sg Rittger, Kevin, MD MD [facility] Sandra Baker RN RN Costa Moore PA PA jr Caryn Bear RN RN Corrections: (The following items were deleted from the chart) 04/06 14:36 13:41 04/06/2019 13:41 Discharged to Home. Impression: Muscle spasm of back. Condition sg is Stable. Forms are Medication Reconciliation Form, Thank You Letter, Antibiotic Education, Prescription Opioid Use. Follow up: Private Physician; When: 2 - 3 days; Reason: Recheck today's complaints, Continuance of care, Re-evaluation by your physician. Problem is new. Symptoms have improved. jr8 14:44 14:36 04/06/2019 13:41 Discharged to Home. Impression: Muscle spasm of back. Condition sg is Stable. Discharge Instructions: Muscle Cramps and Spasms, Back Exercises, Uqwo-[id number]-Byfj, Heat Therapy. Prescriptions for Ibuprofen 800 mg Oral Tablet - take 1 tablet by ORAL route every 12 hours As needed take with food; 20 tablet, Zanaflex 4 mg Oral Tablet - take 1 tablet by ORAL route every 8 hours As needed; 20 tablet. and Forms are Medication Reconciliation Form, Thank You Letter, Antibiotic Education, Prescription Opioid Use, Work release form. Follow up: Private Physician; When: 2 - 3 days; Reason: Recheck today's complaints, Continuance of care, Re-evaluation by your physician. Problem is new. Symptoms have improved. sg
--- NOTE | 2019-04-06 13:43 | ER ---
Nurse's Notes [facility] Name: Elle Man Age: 28 yrs Sex: Female : 1990 Arrival Date: 04/06/2019 Time: 10:45 Bed 13 Private MD: Diagnosis: Muscle spasm of back Presentation: 04/06 10:50 Presenting complaint: Right shoulder and neck pain after wrestling with kids last hb night. Transition of care: patient was not received from another setting of care. Onset of symptoms was April 06, 2019. Risk Assessment: Do you want to hurt yourself or someone else? Patient reports no desire to harm self or others. Initial Sepsis Screen: Does the patient meet any 2 criteria? No. Patient's initial sepsis screen is negative. Does the patient have a suspected source of infection? No. Patient's initial sepsis screen is negative. Care prior to arrival: Medication(s) given: Aleve at 0730. 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 - Social history:: Smoking status: Patient/guardian denies using tobacco. - Ebola Screening: : No symptoms or risks identified at this time. Screenin:30 Abuse screen: Denies threats or abuse. Denies injuries from another. Nutritional sg screening: No deficits noted. Tuberculosis screening: No symptoms or risk factors identified. Never had TB. Fall Risk None identified. Assessment: 11:15 General: Appears in no apparent distress. well groomed, well developed, well nourished, sg Behavior is calm, cooperative, appropriate for age. Pain: Complains of pain in right mid cervical area and right arm Quality of pain is described as aching, sharp, stabbing. Neuro: Level of Consciousness is awake, alert, obeys commands, Oriented to person, place, time, Moves all extremities. Gait is steady, Speech is normal, Facial symmetry appears normal. Cardiovascular: Patient's skin is warm and dry. Chest pain is denied. Respiratory: Airway is patent Respiratory effort is even, unlabored, Respiratory pattern is regular, symmetrical. GI: Abdomen is round non-distended, Reports tolerance of fluids, tolerance of food. : No signs and/or symptoms were reported regarding the genitourinary system. EENT: No signs and/or symptoms were reported regarding the EENT system. Derm: Skin is pink, warm \T\ dry. Musculoskeletal: Circulation, motion, and sensation intact. Range of motion: intact in all extremities, Swelling absent. Vital Signs: 10:52 BP 143 / 93; Pulse 55; Resp 16; Temp 97.9; Pulse Ox 100% on R/A; Weight 117.93 kg; hb Height 5 ft. 11 in. (180.34 cm); Pain 10/10; 10:52 Body Mass Index 36.26 (117.93 kg, 180.34 cm) hb ED Course: 10:45 Patient arrived in ED. mr 10:51 Triage completed. hb 10:52 Arm band placed on. hb 10:59 Costa Moore PA is PHCP. jr8 10:59 Torsten Sánchez MD is Attending Physician. jr8 12:00 Inserted saline lock: 22 gauge in left wrist, using aseptic technique. Blood collected. sg 12:18 Naveed Nunez RN is Primary Nurse. sg 14:15 No provider procedures requiring assistance completed. IV discontinued, intact, sg bleeding controlled, No redness/swelling at site. Pressure dressing applied. 14:43 Primary Nurse role handed off by Naveed Nunez RN sg Administered Medications: 12:00 Drug: TORadol - Ketorolac 15 mg Route: IVP; Site: left wrist; sg 12:50 Follow up: Response: No adverse reaction; Pain is unchanged, physician notified; RASS: sg Alert and Calm (0) 12:00 Drug: Decadron - Dexamethasone 10 mg Route: IVP; Site: left wrist; sg 12:50 Follow up: Response: No adverse reaction sg 12:00 Drug: Robaxin 1 grams Route: IVPB; Infused Over: 1 hrs; Site: left wrist; sg 12:50 Follow up: Response: No adverse reaction; Pain is unchanged, physician notified; RASS: sg Alert and Calm (0); IV Status: Completed infusion 13:30 Drug: fentaNYL (PF) 75 mcg Route: IVP; Site: left wrist; sg 13:46 Drug: Zofran 4 mg Route: IVP; Site: left wrist; Outcome: 13:41 Discharge ordered by . funmilayo 14:30 Discharged to home ambulatory, with family. sg 14:30 Condition: good 14:30 Discharge instructions given to patient, Instructed on discharge instructions, follow up and referral plans. medication usage, safety practices, Demonstrated understanding of instructions, follow-up care, medications, Prescriptions given X 2. 14:36 Patient left the ED. sg 14:44 Patient left the ED. sg Signatures: Naveed Nunez, RN RN Vesna Mercado Irene RN ISIDRO Costa Moore PA PA jr8 Baxter, Heather RN RN hb
[2019-04-07 01:03] VITALS: BP 143/93; TEMP 97.9; O2SAT 100
== END 2019-04-06 14:44 | disposition home or self-care (01) ==
LOC: ER 10:42
DX: M62.830 Muscle spasm of back (principal)
CPT/HCPCS: 96365; 96375; 99284; J1100; J2405; J2800; J3010

== ENCOUNTER 2019-04-08 18:49 | Emergency (ER) | payer SELFPAY ==
--- OUTSIDE RECORDS SUMMARY | 2019-04-08 18:50 | XMS REPORT ---
[...] Date End Date Status Dosage Acyclovir [facility] [id number] 400 MG Orally November 18, Active 1 tablet Three times a day 2017 Results No Known Results Summary Purpose eClinicalWorks Submission
--- OUTSIDE RECORDS SUMMARY | 2019-04-08 18:50 | XMS REPORT ---
:1990 [facility] [place] [address] Care Team Providers Name Role Phone BLAYNE [...] 1\T\2 ANTIBODY (2) (BEAKER) (test Nonreactive Nonreactive qbwm=6215) BASIC METABOLIC [id number] 06:30:00 Test Item Value Reference Range Comments SODIUM (BEAKER) (test 139 meq/L 136-145 xyrn=645) POTASSIUM (BEAKER) (test 3.8 meq/L 3.5-5.1 lqxv=154) CHLORIDE (BEAKER) (test 107 meq/L 98-107 cygv=371) CO2 (BEAKER) (test 26 meq/L 22-29 drfd=898) BLOOD UREA NITROGEN 11 mg/dL 7-21 (BEAKER) (test srxs=662) CREATININE (BEAKER) (test 0.65 mg/dL 0.57-1.25 xqkk=018) GLUCOSE RANDOM (BEAKER) 98 mg/dL 70-105 (test cvtb=564) CALCIUM (BEAKER) (test 8.7 mg/dL 8.4-10.2 vsem=746) EGFR (BEAKER) (test mL/min/1.73 sq m INSUFFICIENT CLINICAL DATA bnhn=4139) TO CALCULATE ESTIMATED GFR. [id number] 06:19:00 Test Item Value Reference Range Comments PHOSPHORUS (BEAKER) (test mfnn=258) 1.9 mg/dL 2.3-4.7 [id number] 06:19:00 Test Item Value Reference Range Comments MAGNESIUM (BEAKER) (test jkgy=469) 1.8 mg/dL 1.6-2.6 HEPATIC FUNCTION [id number] 06:19:00 Test Item Value Reference Range Comments TOTAL PROTEIN (BEAKER) (test tgfv=076) 6.2 gm/dL 6.0-8.3 ALBUMIN (BEAKER) (test psnk=7945) 3.6 g/dL 3.5-5.0 BILIRUBIN TOTAL (BEAKER) (test dohw=114) 0.7 mg/dL 0.2-1.2 BILIRUBIN DIRECT (BEAKER) (test ecfy=878) 0.3 mg/dL 0.1-0.5 ALKALINE PHOSPHATASE (BEAKER) (test stpg=718) 93 U/L 40-150 AST (SGOT) (BEAKER) (test iqqo=843) 10 U/L 5-34 ALT (SGPT) (BEAKER) (test mikv=420) 7 U/L 6-55 CBC W/PLT COUNT & AUTO [id number] 06:11:00 Test Item Value Reference Range Comments WHITE BLOOD CELL COUNT (BEAKER) (test cvet=137) 6.9 K/ L 3.5-10.5 RED BLOOD CELL COUNT (BEAKER) (test uksj=261) 3.92 M/ L 3.93-5.22 HEMOGLOBIN (BEAKER) (test affd=694) 11.9 GM/DL 11.2-15.7 HEMATOCRIT (BEAKER) (test thmx=170) 35.7 % 34.1-44.9 MEAN CORPUSCULAR VOLUME (BEAKER) (test wbxf=208) 91.1 fL 79.4-94.8 MEAN CORPUSCULAR HEMOGLOBIN (BEAKER) (test 30.4 pg 25.6-32.2 wnkw=903) MEAN CORPUSCULAR HEMOGLOBIN CONC (BEAKER) (test 33.3 GM/DL 32.2-35.5 ccco=900) RED CELL DISTRIBUTION WIDTH (BEAKER) (test 12.3 % 11.7-14.4 xcav=058) PLATELET COUNT (BEAKER) (test usal=012) 204 K/CU MM 150-450 MEAN PLATELET VOLUME (BEAKER) (test muln=358) 11.2 fL 9.4-12.3 NUCLEATED RED BLOOD CELLS (BEAKER) (test 0 /100 WBC 0-0 faep=837) NEUTROPHILS RELATIVE PERCENT (BEAKER) (test 72 % wtvq=337) LYMPHOCYTES RELATIVE PERCENT (BEAKER) (test 21 % iqly=452) MONOCYTES RELATIVE PERCENT (BEAKER) (test 6 % eozy=838) EOSINOPHILS RELATIVE PERCENT (BEAKER) (test 1 % ayro=486) BASOPHILS RELATIVE PERCENT (BEAKER) (test 0 % lltm=429) NEUTROPHILS ABSOLUTE COUNT (BEAKER) (test 5.00 K/ L 1.56-6.13 xukt=369) LYMPHOCYTES ABSOLUTE COUNT (BEAKER) (test 1.44 K/ L 1.18-3.74 tllk=432) MONOCYTES ABSOLUTE COUNT (BEAKER) (test 0.39 K/ L 0.24-0.36 boqp=660) EOSINOPHILS ABSOLUTE COUNT (BEAKER) (test 0.07 K/ L 0.04-0.36 luoy=648) BASOPHILS ABSOLUTE COUNT (BEAKER) (test 0.02 K/ L 0.01-0.08 hzil=502) IMMATURE GRANULOCYTES-RELATIVE PERCENT (BEAKER) 0 % 0-1 (test mzqq=3203) BASIC METABOLIC [id number] 10:11:00 Test Item Value Reference Range Comments SODIUM (BEAKER) (test 136 meq/L 136-145 dbrg=622) POTASSIUM (BEAKER) (test 3.2 meq/L 3.5-5.1 zyfx=461) CHLORIDE (BEAKER) (test 107 meq/L 98-107 byig=458) CO2 (BEAKER) (test 25 meq/L 22-29 qipm=665) BLOOD UREA NITROGEN 7 mg/dL 7-21 (BEAKER) (test fewj=531) CREATININE (BEAKER) (test 0.62 mg/dL 0.57-1.25 dbju=231) GLUCOSE RANDOM (BEAKER) 106 mg/dL 70-105 (test srju=140) CALCIUM (BEAKER) (test 8.9 mg/dL 8.4-10.2 xhdg=804) EGFR (BEAKER) (test mL/min/1.73 sq m INSUFFICIENT CLINICAL DATA yfit=0342) TO CALCULATE ESTIMATED GFR. [id number] 09:56:00 Test Item Value Reference Range Comments PHOSPHORUS (BEAKER) (test lauz=199) 1.6 mg/dL 2.3-4.7 [id number] 09:56:00 Test Item Value Reference Range Comments MAGNESIUM (BEAKER) (test trsa=593) 2.0 mg/dL 1.6-2.6 HEPATIC FUNCTION [id number] 09:56:00 Test Item Value Reference Range Comments TOTAL PROTEIN (BEAKER) (test bwey=882) 6.3 gm/dL 6.0-8.3 ALBUMIN (BEAKER) (test gxkj=8562) 3.7 g/dL 3.5-5.0 BILIRUBIN TOTAL (BEAKER) (test will=357) 1.4 mg/dL 0.2-1.2 BILIRUBIN DIRECT (BEAKER) (test twmh=427) 0.6 mg/dL 0.1-0.5 ALKALINE PHOSPHATASE (BEAKER) (test nysy=419) 97 U/L 40-150 AST (SGOT) (BEAKER) (test wegi=731) 10 U/L 5-34 ALT (SGPT) (BEAKER) (test tgak=802) 8 U/L 6-55 CBC W/PLT COUNT & AUTO [id number] 09:53:00 Test Item Value Reference Range Comments WHITE BLOOD CELL COUNT (BEAKER) (test nebb=945) 9.0 K/ L 3.5-10.5 RED BLOOD CELL COUNT (BEAKER) (test acpf=028) 3.90 M/ L 3.93-5.22 HEMOGLOBIN (BEAKER) (test iqyg=126) 11.8 GM/DL 11.2-15.7 HEMATOCRIT (BEAKER) (test nsov=256) 35.5 % 34.1-44.9 MEAN CORPUSCULAR VOLUME (BEAKER) (test xgnp=799) 91.0 fL 79.4-94.8 MEAN CORPUSCULAR HEMOGLOBIN (BEAKER) (test 30.3 pg 25.6-32.2 libo=658) MEAN CORPUSCULAR HEMOGLOBIN CONC (BEAKER) (test 33.2 GM/DL 32.2-35.5 vqqd=728) RED CELL DISTRIBUTION WIDTH (BEAKER) (test 12.0 % 11.7-14.4 evpn=815) PLATELET COUNT (BEAKER) (test utfe=282) 212 K/CU MM 150-450 MEAN PLATELET VOLUME (BEAKER) (test rzxd=283) 10.8 fL 9.4-12.3 NUCLEATED RED BLOOD CELLS (BEAKER) (test 0 /100 WBC 0-0 ywmm=049) NEUTROPHILS RELATIVE PERCENT (BEAKER) (test 69 % jjwa=518) LYMPHOCYTES RELATIVE PERCENT (BEAKER) (test 24 % saow=997) MONOCYTES RELATIVE PERCENT (BEAKER) (test 5 % nkon=544) EOSINOPHILS RELATIVE PERCENT (BEAKER) (test 1 % jwzk=972) BASOPHILS RELATIVE PERCENT (BEAKER) (test 0 % lagf=084) NEUTROPHILS ABSOLUTE COUNT (BEAKER) (test 6.21 K/ L 1.56-6.13 klxx=834) LYMPHOCYTES ABSOLUTE COUNT (BEAKER) (test 2.19 K/ L 1.18-3.74 ssur=938) MONOCYTES ABSOLUTE COUNT (BEAKER) (test 0.49 K/ L 0.24-0.36 quik=561) EOSINOPHILS ABSOLUTE COUNT (BEAKER) (test 0.08 K/ L 0.04-0.36 eboh=746) BASOPHILS ABSOLUTE COUNT (BEAKER) (test 0.03 K/ L 0.01-0.08 dqdj=147) IMMATURE GRANULOCYTES-RELATIVE PERCENT (BEAKER) 0 % 0-1 (test iipq=9070)
--- OUTSIDE RECORDS SUMMARY | 2019-04-08 18:50 | XMS REPORT ---
:1990 Author Organization eClinicalWorks Care Team Providers Name Role Phone Hossein Richardson Provider Role Unavailable Allergies No Known Allergies Problems Problem Type Condition Code Onset Dates Condition Status Assessment Encephalitis G04.90 Active Medications Medication Code System Code Instructions Start Date End Date Status Dosage Acyclovir [facility] [id number] 400 MG Orally November 18, Active 1 tablet Three times a day 2018 Results No Known Results Summary Purpose [email or web address].Bid.Ship Submission
--- NOTE | 2019-04-08 19:45 | EDPHYS ---
Physician Documentation [facility] Name: Elle Man Age: 28 yrs Sex: Female : 1990 Arrival Date: 04/08/2019 Time: 18:50 Bed 17 Private MD: ED Physician Bhanu Kenny HPI: 04/08 19:25 This 28 yrs old Female presents to ER via Unassigned with complaints of Back rn Pain. 19:25 The patient presents with pain that is acute. The symptoms are located in the right rn scapular area. 19:26 The pain does not radiate. Associated signs and symptoms: Pertinent positives: none rn Pertinent negatives: chest pain, dysuria, fever, hematuria, incontinence, nausea, numbness, tingling, vomiting, weakness. Modifying factors: The patient symptoms are alleviated by nothing, the patient symptoms are aggravated by any movement. Severity of symptoms: At their worst the symptoms were moderate, in the emergency department the symptoms are unchanged. The patient has experienced similar episodes in the past. The patient has not recently seen a physician. Reports right scapular pain/back pain, began earlier in week, already seen for this 2 days ago, given muscle relaxer and states not getting better. Remembers that child was stepping on her back and felt immediate pain, no radiation. No fever/cough/chest pain/abd pain. No urinary symptoms. No new symptoms. . 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 - Social history:: Smoking status: Patient/guardian denies using tobacco, Patient/guardian denies using alcohol, street drugs. - Ebola Screening: : Patient negative for fever greater than or equal to 101.5 degrees Fahrenheit, and additional compatible Ebola Virus Disease symptoms Patient denies exposure to infectious person Patient denies travel to an Ebola-affected area in the 21 days before illness onset. - Family history:: not pertinent. - Hospitalizations: : No recent hospitalization is reported. ROS: 19:26 Constitutional: Negative for fever, chills, and weight loss, Neck: Negative for injury, rn pain, and swelling, Cardiovascular: Negative for chest pain, palpitations, and edema, Respiratory: Negative for shortness of breath, cough, wheezing, and pleuritic chest pain, Abdomen/GI: Negative for abdominal pain, nausea, vomiting, diarrhea, and constipation, Back: + for injury and pain, : Negative for injury, bleeding, discharge, and swelling, MS/Extremity: Negative for injury and deformity, Skin: Negative for injury, rash, and discoloration, Neuro: Negative for headache, weakness, numbness, tingling, and seizure. Exam: 19:26 Constitutional: This is a well developed, well nourished patient who is awake, alert, rn and in no acute distress. Ambulatory to room without difficulty or assistance. Neck: Trachea midline, no thyromegaly or masses palpated, and no cervical lymphadenopathy. Supple, full range of motion without nuchal rigidity, or vertebral point tenderness. No Meningismus. Cardiovascular: Regular rate and rhythm. No pulse deficits. Respiratory: No increased work of breathing, no retractions or nasal flaring. Back: No spinal tenderness. No costovertebral tenderness. Full range of motion. Skin: Warm, dry with normal turgor. Normal color with no rashes, no lesions, and no evidence of cellulitis. MS/ Extremity: Pulses equal, no cyanosis. Neurovascular intact. Full, normal range of motion. Equal circumference. Neuro: Awake and alert, GCS 15, oriented to person, place, time, and situation. Cranial nerves II-XII grossly intact. Motor strength 5/5 in all extremities. Sensory grossly intact. Cerebellar exam normal. Normal gait. Vital Signs: 19:20 BP 110 / 93; Pulse 78; Resp 19; Temp 98.2; Pulse Ox 98% ; Weight 122.47 kg; Height 5 rr5 ft. 11 in. (180.34 cm); Pain 10/10; 20:00 BP 105 / 62; Pulse 75; Resp 17; Pulse Ox 99% on R/A; rr5 19:20 Body Mass Index 37.66 (122.47 kg, 180.34 cm) rr5 MDM: 19:09 Patient medically screened. rn 19:26 Differential diagnosis: muscle spasm, radiculopathy, msk pain. Data reviewed: vital rn signs, nurses notes, old medical records, and as a result, I will discharge patient. Counseling: I had a detailed discussion with the patient and/or guardian regarding: the historical points, exam findings, and any diagnostic results supporting the discharge/admit diagnosis, the need for outpatient follow up, to return to the emergency department if symptoms worsen or persist or if there are any questions or concerns that arise at home. Special discussion: I discussed with the patient/guardian in detail that at this point there is no indication for admission to the hospital. It is understood, however, that if the symptoms persist or worsen the patient needs to return immediately for re-evaluation. ED course: Will add steroids and pain medication to prescriptions, no new symptoms, normal vitals, no focal neurological findings. . Administered Medications: No medications were administered Disposition: 04/08/19 19:44 Discharged to Home. Impression: Muscle spasm of back. - Condition is Stable. - Discharge Instructions: Muscle Cramps and Spasms, Heat Therapy. - Prescriptions for Ultram 50 mg Oral Tablet - take 1 tablet by ORAL route every 6 hours As needed; 20 tablet. Medrol (Gerson) 4 mg Oral Tablets, Dose Pack - take 1 tablet by ORAL route as directed - follow package instructions; 1 packet. - Medication Reconciliation Form, Thank You Letter, Antibiotic Education, Prescription Opioid Use form. - Follow up: Private Physician; When: As needed; Reason: Recheck today's complaints, Re-evaluation by your physician. - Problem is new. - Symptoms have improved. Signatures: Bhanu Kenny MD MD rn Roque, Raymond, RN RN rr5 Corrections: (The following items were deleted from the chart) 20:02 19:44 04/08/2019 19:44 Discharged to Home. Impression: Muscle spasm of back. Condition rr5 is Stable. Forms are Medication Reconciliation Form, Thank You Letter, Antibiotic Education, Prescription Opioid Use. Follow up: Private Physician; When: As needed; Reason: Recheck today's complaints, Re-evaluation by your physician. Problem is new. Symptoms have improved. rn
--- NOTE | 2019-04-08 19:45 | ER ---
Nurse's Notes [facility] Name: Elle Man Age: 28 yrs Sex: Female : 1990 Arrival Date: 04/08/2019 Time: 18:50 Bed 17 Private MD: Diagnosis: Muscle spasm of back Presentation: 04/08 19:20 Presenting complaint: Patient states: I still having right back pain going to my right rr5 shoulder and arm. denies chest pain and abdominal pain. the day before yesterday while I was playing with one of my kids he sat on my back after that I felt the pain. I went here that time they gave me IV shots and prescription. but right now the pain is worse. 19:20 Transition of care: patient was not received from another setting of care. Onset of rr5 symptoms was April 06, 2019. Risk Assessment: Do you want to hurt yourself or someone else? Patient reports no desire to harm self or others. Initial Sepsis Screen: Does the patient meet any 2 criteria? No. Patient's initial sepsis screen is negative. Does the patient have a suspected source of infection? No. Patient's initial sepsis screen is negative. Care prior to arrival: Medication(s) given:. 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 - Social history:: Smoking status: Patient/guardian denies using tobacco, Patient/guardian denies using alcohol, street drugs. - Ebola Screening: : Patient negative for fever greater than or equal to 101.5 degrees Fahrenheit, and additional compatible Ebola Virus Disease symptoms Patient denies exposure to infectious person Patient denies travel to an Ebola-affected area in the 21 days before illness onset. - Family history:: not pertinent. - Hospitalizations: : No recent hospitalization is reported. Screenin:31 Abuse screen: Denies threats or abuse. Denies injuries from another. Nutritional rr5 screening: No deficits noted. Tuberculosis screening: No symptoms or risk factors identified. Fall Risk None identified. Assessment: 19:20 General: Appears in no apparent distress. uncomfortable, Behavior is calm, cooperative, rr5 appropriate for age. 19:20 Pain: Complains of pain in right scapular area Pain radiates to right arm Pain rr5 currently is 10 out of 10 on a pain scale. Quality of pain is described as aching, Pain began gradually, Is intermittent. Neuro: Level of Consciousness is awake, alert, obeys commands, Oriented to person, place, time, situation, Appropriate for age. Cardiovascular: Capillary refill < 3 seconds Patient's skin is warm and dry. Respiratory: Airway is patent Respiratory effort is even, unlabored, Respiratory pattern is regular, symmetrical. GI: No signs and/or symptoms were reported involving the gastrointestinal system. : No signs and/or symptoms were reported regarding the genitourinary system. EENT: No signs and/or symptoms were reported regarding the EENT system. Derm: Skin is intact, is healthy with good turgor, Skin temperature is warm. Musculoskeletal: Capillary refill < 3 seconds, Range of motion: limited in right shoulder Reports pain in right scapular area and right arm Pain is 10 out of 10 on a pain scale. 20:00 Reassessment: Patient appears in no apparent distress at this time. Patient is alert, rr5 oriented x 3, equal unlabored respirations, skin warm/dry/pink. discharge instruction given and explained without complaints made, verbalized undertstanding. Vital Signs: 19:20 BP 110 / 93; Pulse 78; Resp 19; Temp 98.2; Pulse Ox 98% ; Weight 122.47 kg; Height 5 rr5 ft. 11 in. (180.34 cm); Pain 10/10; 20:00 BP 105 / 62; Pulse 75; Resp 17; Pulse Ox 99% on R/A; rr5 19:20 Body Mass Index 37.66 (122.47 kg, 180.34 cm) rr5 ED Course: 18:50 Patient arrived in ED. as 19:09 Bhanu Kenny MD is Attending Physician. rn 19:24 Matthew Purdy RN is Primary Nurse. rr5 19:29 Triage completed. rr5 19:30 Arm band placed on. rr5 19:31 Patient has correct armband on for positive identification. Bed in low position. Call rr5 light in reach. 20:00 No provider procedures requiring assistance completed. Patient did not have IV access rr5 during this emergency room visit. Administered Medications: No medications were administered Outcome: 19:44 Discharge ordered by . rn 20:00 Discharged to home ambulatory. rr5 20:00 Condition: stable 20:00 Discharge instructions given to patient, Instructed on discharge instructions, follow up and referral plans. medication usage, Demonstrated understanding of instructions, follow-up care, medications, Prescriptions given X 2. 20:02 Patient left the ED. rr5 Signatures: Aziza Pierre Roman, MD MD rn Matthew Purdy RN RN rr5
[2019-04-08 22:56] VITALS: BP 110/93; TEMP 98.2; O2SAT 98
== END 2019-04-08 20:02 | disposition home or self-care (01) ==
LOC: ER 18:49
DX: M62.830 Muscle spasm of back (principal)
CPT/HCPCS: 99282

== ENCOUNTER 2019-07-14 10:18 | Emergency (ER) | payer SELFPAY ==
--- OUTSIDE RECORDS SUMMARY | 2019-07-14 10:21 | XMS REPORT ---
:1990 [facility] Address [address] [place] [address] Dr. Ruff [address] [place] [id number] Care Team Providers Name Role Phone BLAYNE [...] 1\T\2 ANTIBODY (2) (BEAKER) (test Nonreactive Nonreactive bldd=4462) BASIC METABOLIC [id number] 06:30:00 Test Item Value Reference Range Comments SODIUM (BEAKER) (test 139 meq/L 136-145 pchs=635) POTASSIUM (BEAKER) (test 3.8 meq/L 3.5-5.1 osyf=097) CHLORIDE (BEAKER) (test 107 meq/L 98-107 dnay=456) CO2 (BEAKER) (test 26 meq/L 22-29 bwaa=348) BLOOD UREA NITROGEN 11 mg/dL 7-21 (BEAKER) (test iglr=689) CREATININE (BEAKER) (test 0.65 mg/dL 0.57-1.25 yvpb=558) GLUCOSE RANDOM (BEAKER) 98 mg/dL 70-105 (test zgju=980) CALCIUM (BEAKER) (test 8.7 mg/dL 8.4-10.2 chez=596) EGFR (BEAKER) (test mL/min/1.73 sq m INSUFFICIENT CLINICAL DATA buei=4782) TO CALCULATE ESTIMATED GFR. [id number] 06:19:00 Test Item Value Reference Range Comments PHOSPHORUS (BEAKER) (test qkcl=787) 1.9 mg/dL 2.3-4.7 [id number] 06:19:00 Test Item Value Reference Range Comments MAGNESIUM (BEAKER) (test ulhk=696) 1.8 mg/dL 1.6-2.6 HEPATIC FUNCTION [id number] 06:19:00 Test Item Value Reference Range Comments TOTAL PROTEIN (BEAKER) (test ngan=541) 6.2 gm/dL 6.0-8.3 ALBUMIN (BEAKER) (test slvq=4666) 3.6 g/dL 3.5-5.0 BILIRUBIN TOTAL (BEAKER) (test rerw=896) 0.7 mg/dL 0.2-1.2 BILIRUBIN DIRECT (BEAKER) (test qrqc=579) 0.3 mg/dL 0.1-0.5 ALKALINE PHOSPHATASE (BEAKER) (test bdsa=680) 93 U/L 40-150 AST (SGOT) (BEAKER) (test kwjq=583) 10 U/L 5-34 ALT (SGPT) (BEAKER) (test iiyq=850) 7 U/L 6-55 CBC W/PLT COUNT & AUTO [id number] 06:11:00 Test Item Value Reference Range Comments WHITE BLOOD CELL COUNT (BEAKER) (test qgef=804) 6.9 K/ L 3.5-10.5 RED BLOOD CELL COUNT (BEAKER) (test wfdn=661) 3.92 M/ L 3.93-5.22 HEMOGLOBIN (BEAKER) (test kdxj=383) 11.9 GM/DL 11.2-15.7 HEMATOCRIT (BEAKER) (test ubqw=679) 35.7 % 34.1-44.9 MEAN CORPUSCULAR VOLUME (BEAKER) (test bfuh=864) 91.1 fL 79.4-94.8 MEAN CORPUSCULAR HEMOGLOBIN (BEAKER) (test 30.4 pg 25.6-32.2 orkh=258) MEAN CORPUSCULAR HEMOGLOBIN CONC (BEAKER) (test 33.3 GM/DL 32.2-35.5 rfft=180) RED CELL DISTRIBUTION WIDTH (BEAKER) (test 12.3 % 11.7-14.4 jwqa=928) PLATELET COUNT (BEAKER) (test jvhm=555) 204 K/CU MM 150-450 MEAN PLATELET VOLUME (BEAKER) (test sqay=681) 11.2 fL 9.4-12.3 NUCLEATED RED BLOOD CELLS (BEAKER) (test 0 /100 WBC 0-0 mdjv=349) NEUTROPHILS RELATIVE PERCENT (BEAKER) (test 72 % jqdl=723) LYMPHOCYTES RELATIVE PERCENT (BEAKER) (test 21 % nuiv=909) MONOCYTES RELATIVE PERCENT (BEAKER) (test 6 % jlyw=021) EOSINOPHILS RELATIVE PERCENT (BEAKER) (test 1 % bfoq=500) BASOPHILS RELATIVE PERCENT (BEAKER) (test 0 % hdqb=752) NEUTROPHILS ABSOLUTE COUNT (BEAKER) (test 5.00 K/ L 1.56-6.13 wcxb=790) LYMPHOCYTES ABSOLUTE COUNT (BEAKER) (test 1.44 K/ L 1.18-3.74 otbh=914) MONOCYTES ABSOLUTE COUNT (BEAKER) (test 0.39 K/ L 0.24-0.36 exdu=842) EOSINOPHILS ABSOLUTE COUNT (BEAKER) (test 0.07 K/ L 0.04-0.36 cxjm=345) BASOPHILS ABSOLUTE COUNT (BEAKER) (test 0.02 K/ L 0.01-0.08 crcg=806) IMMATURE GRANULOCYTES-RELATIVE PERCENT (BEAKER) 0 % 0-1 (test gowe=6024) BASIC METABOLIC [id number] 10:11:00 Test Item Value Reference Range Comments SODIUM (BEAKER) (test 136 meq/L 136-145 mlxi=019) POTASSIUM (BEAKER) (test 3.2 meq/L 3.5-5.1 rsrm=343) CHLORIDE (BEAKER) (test 107 meq/L 98-107 dosn=458) CO2 (BEAKER) (test 25 meq/L 22-29 cwkl=098) BLOOD UREA NITROGEN 7 mg/dL 7-21 (BEAKER) (test imew=831) CREATININE (BEAKER) (test 0.62 mg/dL 0.57-1.25 burg=509) GLUCOSE RANDOM (BEAKER) 106 mg/dL 70-105 (test cqnw=214) CALCIUM (BEAKER) (test 8.9 mg/dL 8.4-10.2 gacu=143) EGFR (BEAKER) (test mL/min/1.73 sq m INSUFFICIENT CLINICAL DATA rktg=8062) TO CALCULATE ESTIMATED GFR. [id number] 09:56:00 Test Item Value Reference Range Comments PHOSPHORUS (BEAKER) (test wezw=964) 1.6 mg/dL 2.3-4.7 [id number] 09:56:00 Test Item Value Reference Range Comments MAGNESIUM (BEAKER) (test driu=234) 2.0 mg/dL 1.6-2.6 HEPATIC FUNCTION [id number] 09:56:00 Test Item Value Reference Range Comments TOTAL PROTEIN (BEAKER) (test mkvc=312) 6.3 gm/dL 6.0-8.3 ALBUMIN (BEAKER) (test mzxe=4775) 3.7 g/dL 3.5-5.0 BILIRUBIN TOTAL (BEAKER) (test zcie=239) 1.4 mg/dL 0.2-1.2 BILIRUBIN DIRECT (BEAKER) (test unvy=636) 0.6 mg/dL 0.1-0.5 ALKALINE PHOSPHATASE (BEAKER) (test ywrn=041) 97 U/L 40-150 AST (SGOT) (BEAKER) (test xzny=991) 10 U/L 5-34 ALT (SGPT) (BEAKER) (test xxpj=556) 8 U/L 6-55 CBC W/PLT COUNT & AUTO [id number] 09:53:00 Test Item Value Reference Range Comments WHITE BLOOD CELL COUNT (BEAKER) (test jxco=361) 9.0 K/ L 3.5-10.5 RED BLOOD CELL COUNT (BEAKER) (test jthv=885) 3.90 M/ L 3.93-5.22 HEMOGLOBIN (BEAKER) (test bwrj=538) 11.8 GM/DL 11.2-15.7 HEMATOCRIT (BEAKER) (test cipr=612) 35.5 % 34.1-44.9 MEAN CORPUSCULAR VOLUME (BEAKER) (test trml=950) 91.0 fL 79.4-94.8 MEAN CORPUSCULAR HEMOGLOBIN (BEAKER) (test 30.3 pg 25.6-32.2 quqf=509) MEAN CORPUSCULAR HEMOGLOBIN CONC (BEAKER) (test 33.2 GM/DL 32.2-35.5 hgwj=449) RED CELL DISTRIBUTION WIDTH (BEAKER) (test 12.0 % 11.7-14.4 odfp=635) PLATELET COUNT (BEAKER) (test ykvk=232) 212 K/CU MM 150-450 MEAN PLATELET VOLUME (BEAKER) (test lpgu=884) 10.8 fL 9.4-12.3 NUCLEATED RED BLOOD CELLS (BEAKER) (test 0 /100 WBC 0-0 ovix=083) NEUTROPHILS RELATIVE PERCENT (BEAKER) (test 69 % regw=769) LYMPHOCYTES RELATIVE PERCENT (BEAKER) (test 24 % iqfm=712) MONOCYTES RELATIVE PERCENT (BEAKER) (test 5 % zccv=943) EOSINOPHILS RELATIVE PERCENT (BEAKER) (test 1 % bdqj=522) BASOPHILS RELATIVE PERCENT (BEAKER) (test 0 % tnsr=792) NEUTROPHILS ABSOLUTE COUNT (BEAKER) (test 6.21 K/ L 1.56-6.13 kcpy=714) LYMPHOCYTES ABSOLUTE COUNT (BEAKER) (test 2.19 K/ L 1.18-3.74 hewu=706) MONOCYTES ABSOLUTE COUNT (BEAKER) (test 0.49 K/ L 0.24-0.36 ldtc=811) EOSINOPHILS ABSOLUTE COUNT (BEAKER) (test 0.08 K/ L 0.04-0.36 mlet=071) BASOPHILS ABSOLUTE COUNT (BEAKER) (test 0.03 K/ L 0.01-0.08 marm=139) IMMATURE GRANULOCYTES-RELATIVE PERCENT (BEAKER) 0 % 0-1 (test kkso=7033)
--- OUTSIDE RECORDS SUMMARY | 2019-07-14 10:21 | XMS REPORT ---
:1990 Author Organization [employer]Clinical[employer] Care Team Providers Name Role Phone Hossein Richardson Provider Role Unavailable Allergies No Known Allergies Problems Problem Type Condition Code Onset Dates Condition Status Assessment Encephalitis G04.90 Active Medications Medication Code System Code Instructions Start Date End Date Status Dosage Acyclovir [facility] [id number] 400 MG Orally November 18, Active 1 tablet Three times a day 2018 Results No Known Results Summary Purpose eClinicalBoatsGo Submission
--- OUTSIDE RECORDS SUMMARY | 2019-07-14 10:21 | XMS REPORT ---
[...] Start Date End Date Status Dosage Acyclovir [facility] [id number] 400 MG Orally November 18, Active 1 tablet Three times a day 2017 Results No Known Results Summary Purpose eClinicalWorks Submission
[2019-07-14] MEDS ORDERED: ACETAMINOPHEN 500 MG TAB ONE (11:12)
--- NOTE | 2019-07-14 11:26 | ER ---
Nurse's Notes [facility] Name: Elle Man Age: 29 yrs Sex: Female : 1990 Arrival Date: 07/14/2019 Time: 10:21 Bed 4 Private MD: Diagnosis: Acute pharyngitis Presentation: 07/13 10:30 Chief complaint: Patient states: productive cough that went away and is now coming iw back, body aches today, was sent home from work today, no fever at home. Coronavirus screen: The patient has NOT traveled to a country currently being monitored by the [facility] within the last 14 days. Proceed with normal triage procedures. The patient has NOT had contact with any known and/or suspected case of coronavirus. Proceed with normal triage procedures. Ebola Screen: Patient negative for fever greater than or equal to 101.5 degrees Fahrenheit, and additional compatible Ebola Virus Disease symptoms Patient denies exposure to infectious person. Patient denies travel to an Ebola-affected area in the 21 days before illness onset. No symptoms or risks identified at this time. Initial Sepsis Screen: Does the patient meet any 2 criteria? No. Patient's initial sepsis screen is negative. Does the patient have a suspected source of infection? No. Patient's initial sepsis screen is negative. Risk Assessment: Do you want to hurt yourself or someone else? Patient reports no desire to harm self or others. 10:30 Method Of Arrival: Ambulatory iw 10:30 Acuity: [place] 4 iw 11:36 Onset of symptoms is unknown. 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 - Social history:: Smoking status: Patient denies any tobacco usage or history of. Screenin:14 Abuse screen: Denies threats or abuse. Denies injuries from another. Nutritional jl7 screening: No deficits noted. Tuberculosis screening: No symptoms or risk factors identified. Fall Risk None identified. Assessment: 11:14 General: Appears in no apparent distress. uncomfortable, Behavior is calm, cooperative, jl7 appropriate for age. Pain: Complains of pain in all over Pain currently is 8 out of 10 on a pain scale. Neuro: Level of Consciousness is awake, alert, obeys commands, Oriented to person, place, time, situation. Cardiovascular: Rhythm is regular. Respiratory: Airway is patent Respiratory effort is even, unlabored, Respiratory pattern is regular, symmetrical, Breath sounds are clear bilaterally. Derm: Skin is pink, warm \T\ dry. Vital Signs: 10:30 BP 131 / 91; Pulse 87; Resp 16 S; Temp 98.4; Pulse Ox 99% on R/A; Weight 117.93 kg; iw Height 5 ft. 11 in. (180.34 cm); Pain 5/10; 10:30 Body Mass Index 36.26 (117.93 kg, 180.34 cm) ED Course: 10:21 Patient arrived in ED. fj1 10:30 Flu and/or RSV swab sent to lab. Strep swab sent to lab. jl7 10:32 Triage completed. iw 10:32 Arm band placed on. iw 10:36 [facility]. kb 10:36 Roshan West MD is Attending Physician. kb 11:03 Jeff Fowler RN is Primary Nurse. jl7 11:14 Patient has correct armband on for positive identification. Bed in low position. Call jl7 light in reach. Side rails up X 1. 11:23 Throat Culture Sent. sv 11:36 No provider procedures requiring assistance completed. Patient did not have IV access jl7 during this emergency room visit. Administered Medications: 11:14 Drug: Tylenol 1000 mg Route: PO; jl7 11:20 Follow up: Response: No adverse reaction jl7 Outcome: 11:24 Discharge ordered by . kb 11:36 Discharged to home ambulatory. jl7 11:36 Condition: stable 11:36 Discharge instructions given to patient, Instructed on discharge instructions, follow up and referral plans. Demonstrated understanding of instructions, follow-up care. 11:37 Patient left the ED. jl7 Signatures: Silvia Cardenas FNP-C FNP-Debo Bates RN RN sv Sandra Baker RN RN Jeff Fowler RN RN jl7 Hany Black fj
--- NOTE | 2019-07-14 11:27 | EDPHYS ---
Physician Documentation [facility] Name: Elle Man Age: 29 yrs Sex: Female : 1990 Arrival Date: 07/14/2019 Time: 10:21 Bed 4 Private MD: ED Physician Roshan West HPI: 07/13 11:17 This 29 yrs old Female presents to ER via Ambulatory with complaints of kb Productive Cough, Chest Congestion, BODY ACHES. 11:17 The patient or guardian reports cough, that is intermittent, described as mild, with no kb sputum. The patient or guardian reports flu symptoms, myalgias. Onset: The symptoms/episode began/occurred last week. Severity of symptoms: At their worst the symptoms were mild, in the emergency department the symptoms are unchanged. Modifying factors: The symptoms are alleviated by nothing, the symptoms are aggravated by nothing. Associated signs and symptoms: Pertinent positives: sore throat, Pertinent negatives: chest pain, diarrhea, ear ache, fever, nausea, rhinorrhea, vomiting. The patient has not experienced similar symptoms in the past. The patient has not recently seen a physician. Pt reports sore throat, body aches. States she recently had strep, but didn't finish the antibiotics so she wanted to make sure she didn't still have it. 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 - Social history:: Smoking status: Patient denies any tobacco usage or history of. ROS: 11:16 Neck: Negative for injury, pain, and swelling, Cardiovascular: Negative for chest pain, kb palpitations, and edema, Respiratory: Negative for shortness of breath, cough, wheezing, and pleuritic chest pain, Abdomen/GI: Negative for abdominal pain, nausea, vomiting, diarrhea, and constipation, Back: Negative for injury and pain, MS/Extremity: Negative for injury and deformity, Skin: Negative for injury, rash, and discoloration, Neuro: Negative for headache, weakness, numbness, tingling, and seizure. 11:16 Constitutional: Positive for body aches, malaise, Negative for fever. 11:16 Respiratory: Positive for cough, Negative for dyspnea on exertion, hemoptysis, orthopnea, pleurisy, shortness of breath, sputum production, wheezing. Exam: 11:16 Constitutional: This is a well developed, well nourished patient who is awake, alert, kb and in no acute distress. Head/Face: Normocephalic, atraumatic. ENT: Nares patent. No nasal discharge, no septal abnormalities noted. Tympanic membranes are normal and external auditory canals are clear. Oropharynx with no redness, swelling, or masses, exudates, or evidence of obstruction, uvula midline. Mucous membranes moist. Neck: Trachea midline, no thyromegaly or masses palpated, and no cervical lymphadenopathy. Supple, full range of motion without nuchal rigidity, or vertebral point tenderness. No Meningismus. Chest/axilla: Normal chest wall appearance and motion. Nontender with no deformity. No lesions are appreciated. Cardiovascular: Regular rate and rhythm with a normal S1 and S2. No gallops, murmurs, or rubs. Normal PMI, no JVD. No pulse deficits. Respiratory: Lungs have equal breath sounds bilaterally, clear to auscultation and percussion. No rales, rhonchi or wheezes noted. No increased work of breathing, no retractions or nasal flaring. Abdomen/GI: Soft, non-tender, with normal bowel sounds. No distension or tympany. No guarding or rebound. No evidence of tenderness throughout. Skin: Warm, dry with normal turgor. Normal color with no rashes, no lesions, and no evidence of cellulitis. MS/ Extremity: Pulses equal, no cyanosis. Neurovascular intact. Full, normal range of motion. Neuro: Awake and alert, GCS 15, oriented to person, place, time, and situation. Cranial nerves II-XII grossly intact. Motor strength 5/5 in all extremities. Sensory grossly intact. Cerebellar exam normal. Normal gait. Vital Signs: 10:30 BP 131 / 91; Pulse 87; Resp 16 S; Temp 98.4; Pulse Ox 99% on R/A; Weight 117.93 kg; iw Height 5 ft. 11 in. (180.34 cm); Pain 5/10; 10:30 Body Mass Index 36.26 (117.93 kg, 180.34 cm) MDM: 11:04 Patient medically screened. kb 11:16 Data reviewed: vital signs, nurses notes. Data interpreted: Pulse oximetry: on room air kb is 99 %. Interpretation: normal. Counseling: I had a detailed discussion with the patient and/or guardian regarding: the historical points, exam findings, and any diagnostic results supporting the discharge/admit diagnosis, lab results, the need for outpatient follow up, a family practitioner, to return to the emergency department if symptoms worsen or persist or if there are any questions or concerns that arise at home. 07/13 10:33 Order name: Flu; Complete Time: 11: 07/13 10:37 Order name: Strep; Complete Time: 11: 07/13 11:07 Order name: Throat Culture EDSD Administered Medications: 11:14 Drug: Tylenol 1000 mg Route: PO; jl7 11:20 Follow up: Response: No adverse reaction jl7 Disposition: 18:25 Co-signature as Attending Physician, Roshan West MD Signature for administrative ps1 purposes. Did not see or evaluate patient. . Disposition: 07/14/19 11:24 Discharged to Home. Impression: Acute pharyngitis. - Condition is Stable. - Discharge Instructions: Pharyngitis, [id number], Sore Throat, [place]. - Work release form, Medication Reconciliation Form, Thank You Letter, Antibiotic Education, Prescription Opioid Use form. - Follow up: Emergency Department; When: As needed; Reason: Worsening of condition. Follow up: Private Physician; When: 2 - 3 days; Reason: Recheck today's complaints, Continuance of care, Re-evaluation by your physician. Signatures: Dispatcher [employer] EDSD Silvia Cardenas, JOSHUA-C MANAGER OUTREACH-Sandra Soriano RN RN iw Leal, Jahala, RN RN jl7 Singer, Phillip, MD MD ps1 Corrections: (The following items were deleted from the chart) 11:37 11:24 07/14/2019 11:24 Discharged to Home. Impression: Acute pharyngitis. Condition is jl7 Stable. Forms are Medication Reconciliation Form, Thank You Letter, Antibiotic Education, Prescription Opioid Use. Follow up: Emergency Department; When: As needed; Reason: Worsening of condition. Follow up: Private Physician; When: 2 - 3 days; Reason: Recheck today's complaints, Continuance of care, Re-evaluation by your physician. kb
[2019-07-14 11:55] VITALS: BP 134/79; TEMP 98.8; O2SAT 96
== END 2019-07-14 11:37 | disposition home or self-care (01) ==
LOC: ER 10:18
DX: J02.9 Acute pharyngitis, unspecified (principal)
CPT/HCPCS: 87070; 87081; 87804; 99283

== ENCOUNTER 2019-09-26 10:56 | Emergency (ER) | payer OTHER, SELFPAY ==
[2019-09-26 11:55] LABS: Absolute Lymphocytes (CBC) 1.7 K/uL (0.7-4.9); Basophils % 0.6 % (0-1.3); Hematocrit 42.2 % (36.0-45.0); MPV 8.8 fL (7.6-11.3); RBC Red Blood Cell Count 4.62 M/uL (3.86-4.86)
[2019-09-26] MEDS ORDERED: NA CHLORIDE 0.9% 1,000 ML ONE (12:00)
[2019-09-26] MEDS ORDERED: ACETAMINOPHEN 500 MG TAB ONE (12:21)
[2019-09-26 12:33] LABS: BUN Blood Urea Nitrogen 6 mg/dL (7-18); Bicarbonate 26 mmol/L (21-32); Glucose Level 90 mg/dL (74-106); HCG, Quantitative 35510 mIU/mL (1-3); Potassium 3.7 mmol/L (3.5-5.1); Sodium Level 137 mmol/L (136-145)
[2019-09-26 12:47] LABS: Urine Blood NEGATIVE (NEG); Urine Glucose NEGATIVE (NEG); Urine Protein NEGATIVE (NEG); Urine Specific Gravity 1.025 (1.005-1.030)
[2019-09-26 13:21] LABS: Urine Bacteria 20-50 /HPF (<20); Urine Culture Reflex Order NOT NEEDED; Urine RBC <5 /HPF (NONE SEEN)
--- OUTSIDE RECORDS SUMMARY | 2019-09-26 13:27 | XMS REPORT | Clinical Summary ---
:1990 Author Organization [facility] Address [address] [place] [address] Care Team Providers Name Role Phone Mal Primary Care Provider Allergies No Known Allergies Medications Medication Sig Dispensed Refills Start Date End Date Status clindamycin Take 1 capsule 20 capsule 0 12/11/2018 12/16/2018 (CLEOCIN) 300 MG (300 mg total) capsule by mouth every 6 (six) hours for 5 days. Active Problems Problem Noted Date Cellulitis of hand 12/11/2018 Hypokalemia 02/03/2017 Headache 02/03/2017 Elevated LFTs 02/03/2017 Aseptic meningitis 02/01/2017 Encounters Date Type Specialty Care Team Description 12/11/2018 Hospital Encounter Cardiology Ena Godinez, Vesicular rash; Cellulitis of hand Oneyda Malik MD 12/11/2018 Travel after 09/25/2018 Social History Tobacco Use Types Packs/Day Years Used Date Never Smoker Smokeless Tobacco: Never Used Sex Assigned at Date Recorded Not on file Job Start Date Occupation Industry Not on file Not on file Not on file Travel History Travel Start Travel End [place] 12/04/2018 12/09/2018 Last Filed Vital Signs Vital Sign Reading Time Taken Blood Pressure 121/67 12/11/2018 3:11 PM CDT Pulse 94 12/11/2018 3:11 PM CDT Temperature 36.1 C (97 F) 12/11/2018 3:11 PM CDT Respiratory Rate 17 12/11/2018 3:11 PM CDT Oxygen Saturation 95% 12/11/2018 3:11 PM CDT Inhaled Oxygen Concentration - - Weight 127 kg (280 lb) 12/11/2018 11:16 AM CDT Height 155.8 cm (5' 1.32") 12/11/2018 11:16 AM CDT Body Mass Index 52.35 12/11/2018 11:16 AM CDT Plan of Treatment Not on file Results Not on fileafter 09/25/2018 Advance Directives For more information, please contact:[place] [phone] [employer] [facility] Clinicgregoria RamosHyattsville, [place] [phone] Code Status Date Activated Date Inactivated Comments Full Code 12/11/2018 4:27 AM 12/11/2018 6:06 PM This code status was determined by: Patient Full Code 02/02/2017 12:13 AM 02/04/2017 2:39 PM This code status was determined by: Patient
--- OUTSIDE RECORDS SUMMARY | 2019-09-26 13:28 | XMS REPORT ---
:1990 Author Organization [facility] t Address [address] [place] [address] Dr. Ruff [address] [place] [id number] Care Team Providers Name Role Phone Kiara MARTINES Attending Clinician Unavailable Kiara MARTINES Admitting Clinician Unavailable Problems Condition Condition Condition Status Onset Resolution Last Treating Co mments Source Name Details Category Date Date Treatment Clinician Date Encephalit Encephalit Diagnosis Active [facility] Allergies, Adverse Reactions, Alerts This patient has no known allergies or adverse reactions. Medications Ordered Filled Start Stop Current Ordering Indication Dosage Frequency Signature Comments Components Source Medication Medication Date Date Medication? Clinician (SIG) Name Name Acyclovir Acyclovir Yes Hossein [address] [facility] 7-25 [facility] - 00:00: [address] ent Clinics Procedures This patient has no known procedures. Encounters Start End Encounter Admission Attending Care Care Encounter Source Date/Time Date/Time Type Type Clinicians Facility Department ID 2018-01-27 2018-01-27 [facility] [id number] [facility] 16:01[facility]00 16:01:00 [facility] ent Clinics 2018-01-26 2018-01-26 [facility] [id number] 13:20:00 13:20:00 [facility] ent Clinics 2017-11-18 2017-11-18 [facility] [id number] 15:15:00 15:15:00 [facility] ent Clinics Results Test Description Test Time Test Comments Results Result Comments Source HIV-1 ANTIGEN WITH HIV-1/2 ANTIBODY 2017-02-03 16:26:00 Test Item Value Reference Range Interpretation Comme nts HIV-1 ANTIGEN WITH HIV 1\T\2 ANTIBODY (2) (BEAKER) (test Non reactive Nonreactive code = 6085) BASIC METABOLIC [id number] 06:30:00 Test Item Value Reference Range Interpretation Comments SODIUM (BEAKER) 139 meq/L 136-145 (test code = 381) POTASSIUM (BEAKER) 3.8 meq/L 3.5-5.1 (test code = 379) CHLORIDE (BEAKER) 107 meq/L 98-107 (test code = 382) CO2 (BEAKER) (test 26 meq/L 22-29 code = 355) BLOOD UREA NITROGEN 11 mg/dL 7-21 (BEAKER) (test code = 354) CREATININE (BEAKER) 0.65 mg/dL 0.57-1.25 (test code = 358) GLUCOSE RANDOM 98 mg/dL 70-105 (BEAKER) (test code = 652) CALCIUM (BEAKER) 8.7 mg/dL 8.4-10.2 (test code = 697) EGFR (BEAKER) (test mL/min/1.73 INSUFFIC IENT CLINICAL code = 1092) sq m DATA TO CALCULA TE ESTIMATED GFR. [id number] 06:19:00 Test Item Value Reference Range Interpretation Comments PHOSPHORUS (BEAKER) (test code = 1.9 mg/dL 2.3-4.7 L 604) [id number] 06:19:00 Test Item Value Reference Range Interpretation Comments MAGNESIUM (BEAKER) (test code = 1.8 mg/dL 1.6-2.6 627) HEPATIC FUNCTION [id number] 06:19:00 Test Item Value Reference Range Interpretation Comments TOTAL PROTEIN (BEAKER) (test code = 6.2 gm/dL 6.0-8.3 770) ALBUMIN (BEAKER) (test code = 1145) 3.6 g/dL 3.5-5.0 BILIRUBIN TOTAL (BEAKER) (test code 0.7 mg/dL 0.2-1.2 = 377) BILIRUBIN DIRECT (BEAKER) (test 0.3 mg/dL 0.1-0.5 code = 706) ALKALINE PHOSPHATASE (BEAKER) (test 93 U/L 40-150 code = 346) AST (SGOT) (BEAKER) (test code = 10 U/L 5-34 353) ALT (SGPT) (BEAKER) (test code = 7 U/L 6-55 347) CBC W/PLT COUNT & AUTO [id number] 06:11:00 Test Item Value Reference Range Interpretation Comments WHITE BLOOD CELL COUNT (BEAKER) 6.9 K/ L 3.5-10.5 (test code = 775) RED BLOOD CELL COUNT (BEAKER) 3.92 M/ L 3.93-5.22 L (test code = 761) HEMOGLOBIN (BEAKER) (test code = 11.9 GM/DL 11.2-15.7 410) HEMATOCRIT (BEAKER) (test code = 35.7 % 34.1-44.9 411) MEAN CORPUSCULAR VOLUME (BEAKER) 91.1 fL 79.4-94.8 (test code = 753) MEAN CORPUSCULAR HEMOGLOBIN 30.4 pg 25.6-32.2 (BEAKER) (test code = 751) MEAN CORPUSCULAR HEMOGLOBIN CONC 33.3 GM/DL 32.2-35.5 (BEAKER) (test code = 752) RED CELL DISTRIBUTION WIDTH 12.3 % 11.7-14.4 (BEAKER) (test code = 412) PLATELET COUNT (BEAKER) (test 204 K/CU MM 150-450 code = 756) MEAN PLATELET VOLUME (BEAKER) 11.2 fL 9.4-12.3 (test code = 754) NUCLEATED RED BLOOD CELLS 0 /100 WBC 0-0 (BEAKER) (test code = 413) NEUTROPHILS RELATIVE PERCENT 72 % (BEAKER) (test code = 429) LYMPHOCYTES RELATIVE PERCENT 21 % (BEAKER) (test code = 430) MONOCYTES RELATIVE PERCENT 6 % (BEAKER) (test code = 431) EOSINOPHILS RELATIVE PERCENT 1 % (BEAKER) (test code = 432) BASOPHILS RELATIVE PERCENT 0 % (BEAKER) (test code = 437) NEUTROPHILS ABSOLUTE COUNT 5.00 K/ L 1.56-6.13 (BEAKER) (test code = 670) LYMPHOCYTES ABSOLUTE COUNT 1.44 K/ L 1.18-3.74 (BEAKER) (test code = 414) MONOCYTES ABSOLUTE COUNT (BEAKER) 0.39 K/ L 0.24-0.36 H (test code = 415) EOSINOPHILS ABSOLUTE COUNT 0.07 K/ L 0.04-0.36 (BEAKER) (test code = 416) BASOPHILS ABSOLUTE COUNT (BEAKER) 0.02 K/ L 0.01-0.08 (test code = 417) IMMATURE GRANULOCYTES-RELATIVE 0 % 0-1 PERCENT (BEAKER) (test code = 2801) BASIC METABOLIC [id number] 10:11:00 Test Item Value Reference Range Interpretation Comments SODIUM (BEAKER) 136 meq/L 136-145 (test code = 381) POTASSIUM (BEAKER) 3.2 meq/L 3.5-5.1 L (test code = 379) CHLORIDE (BEAKER) 107 meq/L 98-107 (test code = 382) CO2 (BEAKER) (test 25 meq/L 22-29 code = 355) BLOOD UREA NITROGEN 7 mg/dL 7-21 (BEAKER) (test code = 354) CREATININE (BEAKER) 0.62 mg/dL 0.57-1.25 (test code = 358) GLUCOSE RANDOM 106 mg/dL 70-105 H (BEAKER) (test code = 652) CALCIUM (BEAKER) 8.9 mg/dL 8.4-10.2 (test code = 697) EGFR (BEAKER) (test mL/min/1.73 INSUFFIC IENT CLINICAL code = 1092) sq m DATA TO CALCULA TE ESTIMATED GFR. [id number] 09:56:00 Test Item Value Reference Range Interpretation Comments PHOSPHORUS (BEAKER) (test code = 1.6 mg/dL 2.3-4.7 L 604) [id number] 09:56:00 Test Item Value Reference Range Interpretation Comments MAGNESIUM (BEAKER) (test code = 2.0 mg/dL 1.6-2.6 627) HEPATIC FUNCTION [id number] 09:56:00 Test Item Value Reference Range Interpretation Comments TOTAL PROTEIN (BEAKER) (test code = 6.3 gm/dL 6.0-8.3 770) ALBUMIN (BEAKER) (test code = 1145) 3.7 g/dL 3.5-5.0 BILIRUBIN TOTAL (BEAKER) (test code 1.4 mg/dL 0.2-1.2 H = 377) BILIRUBIN DIRECT (BEAKER) (test 0.6 mg/dL 0.1-0.5 H code = 706) ALKALINE PHOSPHATASE (BEAKER) (test 97 U/L 40-150 code = 346) AST (SGOT) (BEAKER) (test code = 10 U/L 5-34 353) ALT (SGPT) (BEAKER) (test code = 8 U/L 6-55 347) CBC W/PLT COUNT & AUTO [id number] 09:53:00 Test Item Value Reference Range Interpretation Comments WHITE BLOOD CELL COUNT (BEAKER) 9.0 K/ L 3.5-10.5 (test code = 775) RED BLOOD CELL COUNT (BEAKER) 3.90 M/ L 3.93-5.22 L (test code = 761) HEMOGLOBIN (BEAKER) (test code = 11.8 GM/DL 11.2-15.7 410) HEMATOCRIT (BEAKER) (test code = 35.5 % 34.1-44.9 411) MEAN CORPUSCULAR VOLUME (BEAKER) 91.0 fL 79.4-94.8 (test code = 753) MEAN CORPUSCULAR HEMOGLOBIN 30.3 pg 25.6-32.2 (BEAKER) (test code = 751) MEAN CORPUSCULAR HEMOGLOBIN CONC 33.2 GM/DL 32.2-35.5 (BEAKER) (test code = 752) RED CELL DISTRIBUTION WIDTH 12.0 % 11.7-14.4 (BEAKER) (test code = 412) PLATELET COUNT (BEAKER) (test 212 K/CU MM 150-450 code = 756) MEAN PLATELET VOLUME (BEAKER) 10.8 fL 9.4-12.3 (test code = 754) NUCLEATED RED BLOOD CELLS 0 /100 WBC 0-0 (BEAKER) (test code = 413) NEUTROPHILS RELATIVE PERCENT 69 % (BEAKER) (test code = 429) LYMPHOCYTES RELATIVE PERCENT 24 % (BEAKER) (test code = 430) MONOCYTES RELATIVE PERCENT 5 % (BEAKER) (test code = 431) EOSINOPHILS RELATIVE PERCENT 1 % (BEAKER) (test code = 432) BASOPHILS RELATIVE PERCENT 0 % (BEAKER) (test code = 437) NEUTROPHILS ABSOLUTE COUNT 6.21 K/ L 1.56-6.13 H (BEAKER) (test code = 670) LYMPHOCYTES ABSOLUTE COUNT 2.19 K/ L 1.18-3.74 (BEAKER) (test code = 414) MONOCYTES ABSOLUTE COUNT (BEAKER) 0.49 K/ L 0.24-0.36 H (test code = 415) EOSINOPHILS ABSOLUTE COUNT 0.08 K/ L 0.04-0.36 (BEAKER) (test code = 416) BASOPHILS ABSOLUTE COUNT (BEAKER) 0.03 K/ L 0.01-0.08 (test code = 417) IMMATURE GRANULOCYTES-RELATIVE 0 % 0-1 PERCENT (BEAKER) (test code = 2801)
[2019-09-26] MEDS ORDERED: PROMETHAZINE INJ 25 MG/ML AMP ONE (13:40)
--- NOTE | 2019-09-26 13:50 | RAD REPORT ---
EXAM DESCRIPTION: US - Transvaginal OB - 09/26/2019 1:32 pm CLINICAL HISTORY: ABD CRAMPING, COMPARISON: OBSTETRICAL MULTI GESTATION dated 01/17/2015 FINDINGS: A single gestational sac is seen within the uterus. The shape of the sac is within normal limits for gestational age. Within the sac is a single pole with crown-rump length of 4 mm, cor relating to estimated gestational age of 6 weeks 1 day. Estimated date of delivery is 05/20/2020. Heart rate is 110 BPM. The placenta is not yet developed due to early gestational age. The maternal adnexa are within normal limits. Normal Doppler blood flow was demonstrated to the left ovary. The right ovary was obscured by bowel gas. IMPRESSION: Single live early intrauterine gestation with estimated gestational age of 6 weeks 1 day , JASON 05/20/2020.
[2019-09-26 14:25] VITALS: BP 114/67; TEMP 97.7; O2SAT 100
--- NOTE | 2019-09-26 20:08 | ER ---
Nurse's Notes [facility] Name: Elle Man Age: 29 yrs Sex: Female : 1990 Arrival Date: 09/26/2019 Time: 11:00 Bed 17 Private MD: Diagnosis: state;Urinary tract infection, site not specified Presentation: 09/25 11:20 Chief complaint: Patient states: N/V, dizziness and headache that began 2 days ago. Pt ss is unknown weeks . Coronavirus screen: Proceed with normal triage. Patient denies a cough. Patient denies shortness of breath or difficulty breathing. Patient denies measured and/or subjective temperature greater than 100.4F prior to today's visit. Patient denies travel on a cruise ship or to a country the [facility] currently lists as an affected area. Patient denies contact with known and/or suspected case of COVID-19. Ebola Screen: Patient denies exposure to infectious person. Patient denies travel to an Ebola-affected area in the 21 days before illness onset. 11:20 Method Of Arrival: Ambulatory ss 11:20 Initial Sepsis Screen: Does the patient meet any 2 criteria? No. Patient's initial ss sepsis screen is negative. Does the patient have a suspected source of infection? No. Patient's initial sepsis screen is negative. Risk Assessment: Do you want to hurt yourself or someone else? Patient reports no desire to harm self or others. Onset of symptoms was September 24, 2019. 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 - Social history:: Smoking status: Patient denies any tobacco usage or history of. Screenin:00 Abuse screen: Denies threats or abuse. Nutritional screening: No deficits noted. Tuberculosis screening: No symptoms or risk factors identified. Fall Risk None identified. Assessment: 12:15 General: Appears uncomfortable, Behavior is calm, cooperative. Pain:. Neuro: Level of Consciousness is awake, alert, Oriented to person, place, time, situation. Cardiovascular: Heart tones S1 S2 Capillary refill < 3 seconds Patient's skin is warm and dry. Respiratory: Airway is patent. GI: Bowel sounds present X 4 quads. GI: 6 weeks . : No signs and/or symptoms were reported regarding the genitourinary system. 13:30 Reassessment: Pt returned from sonogram. Vital Signs: 11:18 BP 107 / 78 LA Standing; Pulse 98; Resp 19; Pulse Ox 98% on R/A; dh3 11:20 BP 136 / 61 Supine; Pulse 75; Resp 16; Temp 97.7; Pulse Ox 100% on R/A; Weight 124.74 ss kg; Height 5 ft. 11 in. (180.34 cm); Pain 6/10; 11:20 BP 114 / 67 Sitting; Pulse 91; Pulse Ox 100% on R/A; ss 11:20 Body Mass Index 38.35 (124.74 kg, 180.34 cm) ED Course: 11:00 Patient arrived in ED. mr 11:05 Lelia Palacios FNP-C [facility]. snw 11:05 Jonathan Oconnell MD is Attending Physician. snw 11:22 Triage completed. 11:22 Arm band placed on right wrist. 11:45 Initial lab(s) drawn, by id, sent to lab. Inserted saline lock: 24 gauge in left hand, 3 using aseptic technique. Blood collected. 11:49 Digna Campos, RN is Primary Nurse. 13:00 Patient has correct armband on for positive identification. Call light in reach. Side rails up X 1. 13:00 No provider procedures requiring assistance completed. IV discontinued. 13:33 Transvaginal OB In Process Unspecified. EDMS 13:41 Ultrasound completed. hr 13:41 Mukesh Glez MD is Referral Physician. snw Administered Medications: 12:01 Drug: NS 0.9% 1000 ml Route: IV; Rate: 1 bolus; Site: left hand; 14:15 Follow up: IV Status: Completed infusion; IV Intake: 1000ml vc 14:24 Follow up: Response: No adverse reaction; IV Status: Completed infusion 13:30 Drug: Phenergan 6.25 mg Route: IVP; Site: left hand; 14:15 Follow up: Response: No adverse reaction; Nausea is decreased vc 14:24 Follow up: Response: No adverse reaction ah Intake: 14:15 IV: 1000ml; Total: 1000ml. vc Outcome: 13:42 Discharge ordered by MD. dominguez 14:16 Discharged to home ambulatory. vc 14:16 Condition: good 14:16 Condition: good 14:16 Discharge instructions given to patient, Instructed on discharge instructions, follow up and referral plans. medication usage, Demonstrated understanding of instructions, follow-up care, medications, Prescriptions given X 1. 14:17 Patient left the ED. vc Signatures: Dispatcher [employer] EDMS Lelia Palacios, LINEN FOLDER-C LINEN FOLDER-Csnw JenkinsVesna mr Lance, Valerie Sutherland, ISIDRO FELIX Annetta Navarro [facility] Rozina Barnett RN RN vc Harris, Amy RN RN
--- NOTE | 2019-09-26 20:08 | EDPHYS ---
Physician Documentation [facility] Name: Elle Man Age: 29 yrs Sex: Female : 1990 Arrival Date: 09/26/2019 Time: 11:00 Bed 17 Private MD: ED Physician Jonathan Oconnell HPI: 09/25 12:28 This 29 yrs old Female presents to ER via Ambulatory with complaints of snw , Nausea/Vomiting, Dizziness, Decreased Appetite. 12:28 Onset: The symptoms/episode began/occurred acutely, and became persistent. Associated snw signs and symptoms: Pertinent positives: abdominal pain, cramping, no vaginal bleeding. Modifying factors: The patient symptoms are alleviated by nothing. The patient has not experienced similar symptoms in the past. The patient has not recently seen a physician. [id number], LC 2, LMP 08/12/19. 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 - Social history:: Smoking status: Patient denies any tobacco usage or history of. ROS: 12:27 Constitutional: Negative for fever, chills, and weight loss, Eyes: Negative for injury, snw pain, redness, and discharge, ENT: Negative for injury, pain, and discharge, Neck: Negative for injury, pain, and swelling, Cardiovascular: Negative for chest pain, palpitations, and edema, Respiratory: Negative for shortness of breath, cough, wheezing, and pleuritic chest pain, Back: Negative for injury and pain, : Negative for injury, bleeding, discharge, and swelling, MS/Extremity: Negative for injury and deformity, Skin: Negative for injury, rash, and discoloration. 12:27 Abdomen/GI: Positive for nausea, abdominal cramps. 12:27 Neuro: Positive for dizziness. Exam: 12:26 Head/Face: Normocephalic, atraumatic. Eyes: Pupils equal round and reactive to light, snw extra-ocular motions intact. Lids and lashes normal. Conjunctiva and sclera are non-icteric and not injected. Cornea within normal limits. Periorbital areas with no swelling, redness, or edema. ENT: Nares patent. No nasal discharge, no septal abnormalities noted. Tympanic membranes are normal and external auditory canals are clear. Oropharynx with no redness, swelling, or masses, exudates, or evidence of obstruction, uvula midline. Mucous membranes moist. Neck: Trachea midline, no thyromegaly or masses palpated, and no cervical lymphadenopathy. Supple, full range of motion without nuchal rigidity, or vertebral point tenderness. No Meningismus. Chest/axilla: Normal chest wall appearance and motion. Nontender with no deformity. No lesions are appreciated. Cardiovascular: Regular rate and rhythm with a normal S1 and S2. No gallops, murmurs, or rubs. Normal PMI, no JVD. No pulse deficits. Respiratory: Lungs have equal breath sounds bilaterally, clear to auscultation and percussion. No rales, rhonchi or wheezes noted. No increased work of breathing, no retractions or nasal flaring. 12:26 Back: No spinal tenderness. No costovertebral tenderness. Full range of motion. Skin: Warm, dry with normal turgor. Normal color with no rashes, no lesions, and no evidence of cellulitis. MS/ Extremity: Pulses equal, no cyanosis. Neurovascular intact. Full, normal range of motion. Psych: Awake, alert, with orientation to person, place and time. Behavior, mood, and affect are within normal limits. 12:26 Constitutional: The patient appears alert, awake. 12:26 Abdomen/GI: Inspection: abdomen appears normal, obese Bowel sounds: normal, Palpation: abdomen is soft and non-tender. 12:26 Neuro: Orientation: is normal, Mentation: is normal, Sensation: is normal, orthostatic vs + for dehydration. Vital Signs: 11:18 BP 107 / 78 LA Standing; Pulse 98; Resp 19; Pulse Ox 98% on R/A; dh3 11:20 BP 136 / 61 Supine; Pulse 75; Resp 16; Temp 97.7; Pulse Ox 100% on R/A; Weight 124.74 ss kg; Height 5 ft. 11 in. (180.34 cm); Pain 6/10; 11:20 BP 114 / 67 Sitting; Pulse 91; Pulse Ox 100% on R/A; ss 11:20 Body Mass Index 38.35 (124.74 kg, 180.34 cm) MDM: 11:12 Patient medically screened. vicki 13:44 Data reviewed: vital signs, nurses notes. Data interpreted: Pulse oximetry: on room air snw is 100 %. Interpretation: normal. Counseling: I had a detailed discussion with the patient and/or guardian regarding: the historical points, exam findings, and any diagnostic results supporting the discharge/admit diagnosis, lab results, radiology results, the need for outpatient follow up, to return to the emergency department if symptoms worsen or persist or if there are any questions or concerns that arise at home. Special discussion: Based on the patient's Hx, exam, and Dx evaluation, there is no indication for emergent surgery or inpatient Tx. It is understood by the patient/guardian that if the Sx's persist or worsen they need to return immediately for re-evaluation. Based on the history and exam findings, there is no indication for further emergent testing or inpatient evaluation. I discussed with the patient/guardian the need to see the OB Gyne specialist for further evaluation of the symptoms. I discussed with the patient/guardian the need to see the primary care provider for further evaluation of the symptoms. 09/25 11:06 Order name: Urine Culture w 09/25 11:06 Order name: Urine Microscopic Only; Complete Time: 13:26 snw 09/25 11:26 Order name: Quantitative Hcg; Complete Time: 12:35 snw 09/25 11:26 Order name: Abo/rh Typing; Complete Time: 12:13 snw 09/25 11:26 Order name: Basic Metabolic Panel; Complete Time: 12:35 snw 09/25 11:26 Order name: CBC with Diff; Complete Time: 11:59 snw 09/25 11:06 Order name: Urine Test (obtain specimen); Complete Time: 12:29 snw 09/25 11:06 Order name: Urine Dipstick-Ancillary (obtain specimen); Complete Time: 12:29 snw 09/25 12:29 Order name: Urine Dipstick--Ancillary (enter results); Complete Time: 12:49 bd 09/25 12:29 Order name: Urine --Ancillary (enter results); Complete Time: 12:49 bd 09/25 13:12 Order name: Transvaginal OB EDMS 09/25 11:26 Order name: IV Saline Lock; Complete Time: 11:50 snw 09/25 11:26 Order name: Labs collected and sent; Complete Time: 11:50 snw 09/25 11:26 Order name: NPO; Complete Time: 11:27 snw Administered Medications: 12:01 Drug: NS 0.9% 1000 ml Route: IV; Rate: 1 bolus; Site: left hand; 14:15 Follow up: IV Status: Completed infusion; IV Intake: 1000ml vc 14:24 Follow up: Response: No adverse reaction; IV Status: Completed infusion 13:30 Drug: Phenergan 6.25 mg Route: IVP; Site: left hand; 14:15 Follow up: Response: No adverse reaction; Nausea is decreased vc 14:24 Follow up: Response: No adverse reaction Disposition: 15:22 Co-signature as Attending Physician, Jonathan Oconnell MD I agree with the assessment and doctors hospital plan of care. Disposition: 09/26/19 13:42 Discharged to Home. Impression: state, Urinary tract infection, site not specified. - Condition is Stable. - Discharge Instructions: Abdominal Pain During , First Trimester of , and Urinary Tract Infection, Rehydration, Adult, Eating Plan for Women. - Prescriptions for Macrobid 100 mg Oral Capsule - take 1 capsule by ORAL route every 12 hours for 7 days; 14 capsule. - Medication Reconciliation Form, Thank You Letter, Antibiotic Education, Prescription Opioid Use, Work release form form. - Follow up: Emergency Department; When: As needed; Reason: Worsening of condition. Follow up: Mukesh Glez MD; When: 2 - 3 days; Reason: Recheck today's complaints, Continuance of care. Signatures: Dispatcher [employer] [facility] Jonathan Oconnell MD MD cha Therrien, Shelly, COUNCILLOR [employer]-C COUNCI[employer]OR [employer]-Csnw Valerie Ashford RN RN ss Calcote, Vanessa, RN RN vc Harris, Amy, RN RN Corrections: (The following items were deleted from the chart) 13:10 12:44 Transvaginal Study (Probe)+[id number] ordered. [facility] 14:17 13:42 09/26/2019 13:42 Discharged to Home. Impression: state; Urinary tract vc infection, site not specified. Condition is Stable. Forms are Medication Reconciliation Form, Thank You Letter, Antibiotic Education, Prescription Opioid Use. Follow up: Emergency Department; When: As needed; Reason: Worsening of condition. Follow up: Mukesh Glez; When: 2 - 3 days; Reason: Recheck today's complaints, Continuance of care. snw
== END 2019-09-26 14:17 | disposition home or self-care (01) ==
LOC: ER 10:56
DX: O23.41 Unspecified infection of urinary tract in pregnancy, first trimester (principal); Z3A.01 Less than 8 weeks gestation of pregnancy
CPT/HCPCS: 96361; 87088; 85025; 87086; 80048; 36415; 86900; 81025; 86901; 84702; 76817; 96374; 99284; J2550; J7030; 81003; 81015

== ENCOUNTER 2019-10-02 18:07 | Emergency (ER) | payer OTHER ==
--- OUTSIDE RECORDS SUMMARY | 2019-10-02 18:11 | XMS REPORT | Continuity of Care Document ---
:1990 Author Organization [facility] t Address [facility] [place] [address] Care Team Providers Name Role Phone Sharpless Primary Care Physician Herbert MERRITT, Maxine Attending Clinician King MERRITT, Reshad Attending Clinician Kiara MARTINES Attending Clinician Unavailable Kiara MARTINES Admitting Clinician Unavailable Problems Condition Condition Condition Status Onset Resolution Last Treating Co mments Source Name Details Category Date Date Treatment Clinician Date Cellulitis Cellulitis Disease Active [facility] 00 [place] Hypokalemi Hypokalemi Disease Active 2016-[address] [facility] 0[facility]10 [facility] 00 [place] Headache Headache Disease [facility] [place] Elevated Elevated Disease [facility] 2016[facility] [place] Aseptic Aseptic Disease Active 2016-[address] meningitis meningitis 0-08 Radha kes - 00:00: Medical 00 [place] Encephalit Encephalit Diagnosis Active [facility] Allergies, Adverse Reactions, Alerts This patient has no known allergies or adverse reactions. Social History Social Habit Start Date Stop Date Quantity Comments Source Sex Assigned At [facility] Smoking Status Start Date Stop Date Source Never smoker [facility] Medications Ordered Filled Start Stop Current Ordering Indication Dosage Frequency Signature Comments Components Source Medication Medication Date Date Medication? Clinician (SIG) Name Name clindamycin 2018- 2019- No 300mg Take [address] (CLEOCIN) 12-11 capsule [facility] - 300 MG 00:00: 23:59 (300 mg Medical capsule 00 :00 total) by Center mouth every 6 (six) hours for 5 days. Acyclovir Acyclovir Yes Hossein 1 tablet [facility] 11-18 Dylan [facility] - 00:[facility]: [address] [facility] Vital Signs Vital Name Observation Time Observation Value Comments Source Systolic blood 2018-12-11 15:11:00 121 mm[Hg] [facility] Diastolic blood 2018-12-11 15:11:00 67 mm[Hg] [facility] Heart rate 2018-12-11 15:11:00 94 /min [facility] Body temperature 2018-12-11 15:11:00 36.11 Jasmin [facility] Respiratory rate 2018-12-11 15:11:00 17 /min [facility] Oxygen saturation in 2018-12-11 15:11:00 95 /min [facility] Arterial blood by Medical Ce nter Pulse oximetry Body height 2018-12-11 11:16:00 155.8 cm [facility] Body weight Measured 2018-12-11 11:16:00 127.007 kg [facility] BMI 2018-12-11 11:16:00 52.35 kg/m2 [facility] Procedures This patient has no known procedures. Encounters Start End Encounter Admission Attending Care Care Encounter Source Date/Time Date/Time Type Type Clinicians Facility Department ID 2018-01-27 2018-01-27 Outpatient Ngozi Rodriguez [id number] [address] 16:01:00 16:01:00 [facility] 2018-01-26 2018-01-26 Outpatient Ngozi Rodriguez [id number] 13:20:00 13:20:00 [facility] Medicine Outpati ent Clinics 2017-11-18 2017-11-18 Outpatient Ngozi Rodriguez [id number] 15:15[facility]00 15:[facility] l Medicine Outpati ent Clinics Results Test Description Test Time Test Comments Results Result Comments Source HIV-1 ANTIGEN WITH HIV-1/2 ANTIBODY 2017-02-03 16:26:00 Test Item Value Reference Range Interpretation Comme nts HIV-1 ANTIGEN WITH HIV 1\T\2 ANTIBODY (2) (BEAKER) (test Non reactive Nonreactive code = 2586) BASIC METABOLIC [id number] 06:30:00 Test Item Value Reference Range Interpretation [...] m DATA TO CALCULA TE ESTIMATED GFR. [id number] 06:19:00 Test Item Value Reference Range Interpretation Comments PHOSPHORUS (BEAKER) (test code = 1.9 mg/dL 2.3-4.7 L 604) [id number] 06:19:00 Test Item Value Reference Range Interpretation Comments MAGNESIUM (BEAKER) (test code = 1.8 mg/dL 1.6-2.6 627) HEPATIC FUNCTION [id number] 06:19:00 Test Item Value Reference Range Interpretation [...] 6-55 347) CBC W/PLT COUNT & AUTO [id number] 06:11:00 Test Item Value Reference Range Interpretation [...] (BEAKER) (test code = 2801) BASIC METABOLIC [id number] 10:11:00 Test Item Value Reference Range Interpretation [...] m DATA TO CALCULA TE ESTIMATED GFR. [id number] 09:56:00 Test Item Value Reference Range Interpretation Comments PHOSPHORUS (BEAKER) (test code = 1.6 mg/dL 2.3-4.7 L 604) [id number] 09:56:00 Test Item Value Reference Range Interpretation Comments MAGNESIUM (BEAKER) (test code = 2.0 mg/dL 1.6-2.6 627) HEPATIC FUNCTION [id number] 09:56:00 Test Item Value Reference Range Interpretation [...] 6-55 347) CBC W/PLT COUNT & AUTO [id number] 09:53:00 Test Item Value Reference Range Interpretation [...] % 0-1 PERCENT (BEAKER) (test code = 2802)
--- OUTSIDE RECORDS SUMMARY | 2019-10-02 18:11 | XMS REPORT | Clinical Summary ---
:[address] [facility] Address [address] [place] [address] Care Team Providers Name Role Phone Mal [...] hand Oneyda Malik MD 12/11/2018 Travel after 10/01/2018 Social History Tobacco Use Types Packs/Day Years Used Date Never Smoker Smokeless Tobacco: Never Used Sex Assigned at Date Recorded Not on file Job Start Date Occupation Industry Not on file Not on file Not on file Travel History Travel Start Travel End [place] 12/04/2018 12/09/2018 Last Filed Vital Signs Vital [...] Not on file Results Not on fileafter 10/01/2018 Advance Directives For more information, please contact:[place] [id number] [facility] Ramos[place], [place] [phone] Code Status Date Activated Date Inactivated Comments Full Code 12/11/2018 4:27 AM 12/11/2018 6:06 PM This code status was determined by: Patient Full Code 02/02/2017 12:13 AM 02/04/2017 2:39 PM This code status was determined by: Patient
[2019-10-02 18:51] LABS: Absolute Lymphocytes (CBC) 2.3 K/uL (0.7-4.9); Basophils % 0.4 % (0-1.3); Hematocrit 38.1 % (36.0-45.0); Lymphocytes % 13.8 % (15.3-44.8); MPV 9.1 fL (7.6-11.3); RBC Red Blood Cell Count 4.13 M/uL (3.86-4.86)
[2019-10-02] MEDS ORDERED: PROMETHAZINE INJ 25 MG/ML AMP ONE (19:03)
[2019-10-02] MEDS ORDERED: NA CHLORIDE 0.9% 1,000 ML ONE (19:03)
--- NOTE | 2019-10-02 19:30 | RAD REPORT ---
EXAM DESCRIPTION: RAD - Chest Single View - 10/02/2019 7:01 pm CLINICAL HISTORY: DYSPNEA Chest pain. COMPARISON: Chest Single View dated 02/01/2017 FINDINGS: Portable technique limits examination quality. The lungs are grossly clear. The heart is upper limit of normal in size. No displaced fractures. IMPRESSION: No acute intrathoracic process suspected.
[2019-10-02 19:41] LABS: ALT/SGPT 18 U/L (12-78); Albumin 3.6 g/dL (3.4-5.0); Alkaline Phosphatase 99 U/L (45-117); BUN Blood Urea Nitrogen 6 mg/dL (7-18); Bicarbonate 22 mmol/L (21-32); Bilirubin Direct 0.2 mg/dL (0-0.2); Bilirubin Total 0.8 mg/dL (0.2-1.0); Glucose Level 92 mg/dL (74-106); Lipase 58 U/L (73-393); Protein, Total 7.2 g/dL (6.4-8.2); Sodium Level 138 mmol/L (136-145)
[2019-10-02 19:47] LABS: AST/SGOT 15 U/L (15-37); Potassium 3.5 mmol/L (3.5-5.1)
--- NOTE | 2019-10-02 20:24 | ER ---
Nurse's Notes [facility] Name: Elle Man Age: 29 yrs Sex: Female : 1990 Arrival Date: 10/02/2019 Time: 18:11 Bed 15 Private MD: Diagnosis: Vomiting of , unspecified Presentation: 10/01 18:23 Chief complaint: Patient states: N/V, generalized malaise, no appetite for 8 days. ll1 Continues since visit here last weekend. Diagnosed with 6 weeks and UTI. Coronavirus screen: Proceed with normal triage. Patient denies a cough. Patient reports shortness of breath or difficulty breathing. Patient denies measured and/or subjective temperature greater than 100.4F prior to today's visit. Patient denies travel on a cruise ship or to a country the [facility] currently lists as an affected area. Patient denies contact with known and/or suspected case of COVID-19. Ebola Screen: Patient denies travel to an Ebola-affected area in the 21 days before illness onset. Initial Sepsis Screen: Does the patient meet any 2 criteria? No. Patient's initial sepsis screen is negative. Risk Assessment: Do you want to hurt yourself or someone else? Patient reports no desire to harm self or others. Onset of symptoms was September 25, 2019. 18:23 Method Of Arrival: Ambulatory ll1 18:23 Acuity: [place] 3 ll1 18:30 Initial Sepsis Screen: Does the patient have a suspected source of infection? No. vc Patient's initial sepsis screen is negative. Triage Assessment: 18:30 General: Appears in no apparent distress. uncomfortable, Behavior is calm, cooperative, vc appropriate for age. Pain: Denies pain. GI: Reports nausea, vomiting. INSIDE STEWARD/STEWARDESS: 18:49 2, 0, Living 2 kb 20:30 Verified vc Historical: - Allergies: 18:26 No Known Drug Allergies; ll1 - PMHx: 18:26 bacterial meningitis; ll1 - PSHx: 18:26 ; Hernia repair; ll1 - Immunization history:: Adult Immunizations up to date. - Social history:: Patient/guardian denies using alcohol, street drugs, tobacco products, Smoking status: Patient denies any tobacco usage or history of. Screenin:15 Abuse screen: Denies threats or abuse. Nutritional screening: No deficits noted. vc Tuberculosis screening: No symptoms or risk factors identified. Fall Risk None identified. Assessment: 18:30 GI: Abdomen is round non-distended. vc 18:30 General: Appears in no apparent distress. uncomfortable, ill, Behavior is calm, vc cooperative, appropriate for age. Pain: Denies pain. Neuro: Level of Consciousness is awake, alert, obeys commands, Oriented to person, place, time, situation. Cardiovascular: Capillary refill < 3 seconds Patient's skin is warm and dry. Respiratory: Airway is patent Respiratory effort is even, unlabored, Respiratory pattern is regular, symmetrical. : No signs and/or symptoms were reported regarding the genitourinary system. EENT: No signs and/or symptoms were reported regarding the EENT system. 19:30 Reassessment: Patient appears in no apparent distress at this time. Patient and/or vc family updated on plan of care and expected duration. Pain level reassessed. 20:00 Reassessment: Patient appears in no apparent distress at this time. Patient and/or vc family updated on plan of care and expected duration. Pain level reassessed. Patient denies pain at this time. Patient states feeling better. Patient states symptoms have improved. Vital Signs: 18:23 BP 124 / 89; Pulse 89; Resp 18; Temp 97.4; Pulse Ox 97% ; Pain 2/10; ll1 20:30 BP 132 / 84; Pulse 72; Resp 17; Pulse Ox 100% ; vc ED Course: 18:11 Patient arrived in ED. fj1 18:15 Silvia Cardenas FNP-C [facility]. kb 18:15 Bhanu Kenny MD is Attending Physician. kb 18:25 Rozina Barnett RN is Primary Nurse. vc 18:26 Triage completed. ll1 18:26 Arm band placed on Patient placed in an exam room, on a stretcher. ll1 18:30 Patient has correct armband on for positive identification. Bed in low position. Call vc light in reach. 19:01 Chest Single View XRAY In Process Unspecified. EDMS 19:06 Inserted saline lock: 22 gauge in left hand, using aseptic technique. hb Administered Medications: 19:07 Drug: NS 0.9% 1000 ml Route: IV; Rate: 1000 ml; Site: left hand; hb 19:07 Drug: Phenergan 6.25 mg Route: IVP; Site: left hand; hb 22:46 Follow up: Response: No adverse reaction vc Outcome: 20:23 Discharge ordered by . kb 20:39 Patient left the ED. vc Signatures: Dispatcher [employer] EDSilvia Hurley FNP-C FNP-Caryn Winchester RN RN Rozina Barnett RN RN vc James, Frank fj1 Dawn Quintero RN RN ll1
--- NOTE | 2019-10-02 20:24 | EDPHYS ---
Physician Documentation [facility] Name: Elle Man Age: 29 yrs Sex: Female : 1990 Arrival Date: 10/02/2019 Time: 18:11 Bed 15 Private MD: ED Physician Bhanu Kenny HPI: 10/01 18:48 This 29 yrs old Female presents to ER via Ambulatory with complaints of kb Nausea/Vomiting, Shortness Of Breath. 18:48 The patient has not experienced similar symptoms in the past. The patient has been kb recently seen at the [facility] Emergency Department, last week, for similar complaints. 18:49 The patient presents to the emergency department with abdominal pain, of the right kb upper quadrant and left upper quadrant, nausea and vomiting. The estimated gestational age is 7 weeks. Previous pregnancies: in previous pregnancies patient has had. Associated signs and symptoms: Pertinent positives: abdominal pain, nausea, vomiting. Pt reports nausea and vomiting that started 8 days ago. States the nausea takes her appetite away. Reports she has upper abd pain and some shortness of breath. Was seen the first day this started and was told it was due to and a UTI. Pt states "I've been before and this nausea and vomiting can't be just because I'm .". INSOLE STIFFENER: 18:49 2, 0, Living 2 kb 20:30 Verified vc Historical: - Allergies: 18:26 No Known Drug Allergies; ll1 - PMHx: 18:26 bacterial meningitis; ll1 - PSHx: 18:26 ; Hernia repair; ll1 - Immunization history:: Adult Immunizations up to date. - Social history:: Patient/guardian denies using alcohol, street drugs, tobacco products, Smoking status: Patient denies any tobacco usage or history of. ROS: 18:53 Constitutional: Negative for fever, chills, and weight loss, Cardiovascular: Negative kb for chest pain, palpitations, and edema, Back: Negative for injury and pain, : Negative for injury, bleeding, discharge, and swelling, MS/Extremity: Negative for injury and deformity, Skin: Negative for injury, rash, and discoloration, Neuro: Negative for headache, weakness, numbness, tingling, and seizure. 18:53 Respiratory: Positive for shortness of breath, Negative for cough, dyspnea on exertion, hemoptysis, orthopnea, pleurisy, sputum production, wheezing. 18:53 Abdomen/GI: Positive for abdominal pain, nausea and vomiting. Exam: 18:53 Constitutional: This is a well developed, well nourished patient who is awake, alert, kb and in no acute distress. Head/Face: Normocephalic, atraumatic. Chest/axilla: Normal chest wall appearance and motion. Nontender with no deformity. No lesions are appreciated. Cardiovascular: Regular rate and rhythm with a normal S1 and S2. No gallops, murmurs, or rubs. Normal PMI, no JVD. No pulse deficits. Respiratory: Lungs have equal breath sounds bilaterally, clear to auscultation and percussion. No rales, rhonchi or wheezes noted. No increased work of breathing, no retractions or nasal flaring. Back: No spinal tenderness. No costovertebral tenderness. Full range of motion. Skin: Warm, dry with normal turgor. Normal color with no rashes, no lesions, and no evidence of cellulitis. MS/ Extremity: Pulses equal, no cyanosis. Neurovascular intact. Full, normal range of motion. Neuro: Awake and alert, GCS 15, oriented to person, place, time, and situation. Cranial nerves II-XII grossly intact. Motor strength 5/5 in all extremities. Sensory grossly intact. Cerebellar exam normal. Normal gait. 18:53 Abdomen/GI: Inspection: abdomen appears normal, Bowel sounds: normal, in all quadrants, Palpation: soft, in all quadrants, mild abdominal tenderness, in the right upper quadrant and left upper quadrant. Vital Signs: 18:23 BP 124 / 89; Pulse 89; Resp 18; Temp 97.4; Pulse Ox 97% ; Pain 2/10; ll1 20:30 BP 132 / 84; Pulse 72; Resp 17; Pulse Ox 100% ; vc MDM: 18:15 Patient medically screened. kb 18:54 Data reviewed: vital signs, nurses notes. Data interpreted: Pulse oximetry: on room air kb is 97 %. Interpretation: normal. 20:21 Counseling: I had a detailed discussion with the patient and/or guardian regarding: the kb historical points, exam findings, and any diagnostic results supporting the discharge/admit diagnosis, lab results, the need for outpatient follow up, an OB/Gyne specialist, to return to the emergency department if symptoms worsen or persist or if there are any questions or concerns that arise at home. ED course: Pt feels better, nausea resolved. 10/01 18:22 Order name: Basic Metabolic Panel; Complete Time: 19:51 kb 10/01 18:22 Order name: CBC with Diff; Complete Time: 20:36 kb 10/01 18:22 Order name: Hepatic Function; Complete Time: 19:51 kb 10/01 18:22 Order name: Lipase; Complete Time: 19:51 kb 10/01 20:22 Order name: Urine Dipstick--Ancillary (enter results) mw2 10/01 20:29 Order name: CBC Smear Scan; Complete Time: 20:36 EDMS 10/01 18:22 Order name: IV Saline Lock; Complete Time: 19:07 kb 10/01 18:22 Order name: Labs collected and sent; Complete Time: 19:32 kb 10/01 18:22 Order name: Chest Single View XRAY; Complete Time: 19:37 kb 10/01 18:22 Order name: Urine Dipstick-Ancillary (obtain specimen); Complete Time: 20:25 kb 10/01 19:52 Order name: PO challenge; Complete Time: 22:46 kb Administered Medications: 19:07 Drug: NS 0.9% 1000 ml Route: IV; Rate: 1000 ml; Site: left hand; hb 19:07 Drug: Phenergan 6.25 mg Route: IVP; Site: left hand; hb 22:46 Follow up: Response: No adverse reaction vc Disposition: 10/02/19 20:23 Discharged to Home. Impression: Vomiting of , unspecified. - Condition is Stable. - Discharge Instructions: Hyperemesis Gravidarum, Morning Sickness, [id number]. - Prescriptions for Diclegis 10- 10 mg Oral tablet,delayed release (DR/EC) - take 1 tablet by ORAL route once daily As needed; 10 tablet. - Medication Reconciliation Form, Thank You Letter, Antibiotic Education, Prescription Opioid Use form. - Follow up: Emergency Department; When: As needed; Reason: Worsening of condition. Follow up: Private Physician; When: 2 - 3 days; Reason: Recheck today's complaints, Continuance of care, Re-evaluation by your physician. Addendum: 10/05/2019 18:58 Co-signature as Attending Physician, Bhanu Kenny MD. r n Signatures: Dispatcher [employer] EDMS Ronald Silvia, MEDIA RELATIONS COORDINATOR-C MEDIA RELATIONS COORDINATOR-Ckb Bhanu Kenny MD MD rn [place], Heather RN RN Rozina Hassan RN RN Dawn Kiran RN RN ll1 Corrections: (The following items were deleted from the chart) 10/01 20:39 20:23 10/02/2019 20:23 Discharged to Home. Impression: Vomiting of , vc unspecified. Condition is Stable. Discharge Instructions: Hyperemesis Gravidarum, Morning Sickness, [id number]. Prescriptions for Diclegis 10-10 mg Oral tablet,delayed release (DR/EC) - take 1 tablet by ORAL route once daily As needed; 10 tablet. and Forms are Medication Reconciliation Form, Thank You Letter, Antibiotic Education, Prescription Opioid Use. Follow up: Emergency Department; When: As needed; Reason: Worsening of condition. Follow up: Private Physician; When: 2 - 3 days; Reason: Recheck today's complaints, Continuance of care, Re-evaluation by your physician. kb
[2019-10-02 20:29] LABS: Blood Morphology Comment NOT SEEN (NOT SEEN); Platelet Estimate ADEQ; Urine White Blood Cell Casts OK
[2019-10-02 20:48] VITALS: TEMP 97.4
[2019-10-02 20:49] VITALS: BP 132/84; O2SAT 100
[2019-10-02 22:06] LABS: Urine Blood TRACE (NEG); Urine Glucose NEGATIVE (NEG); Urine Protein TRACE (NEG); Urine Specific Gravity >1.030 (1.005-1.030)
== END 2019-10-02 20:39 | disposition home or self-care (01) ==
LOC: ER 18:07
DX: O21.9 Vomiting of pregnancy, unspecified (principal); Z3A.01 Less than 8 weeks gestation of pregnancy
CPT/HCPCS: 85025; 80048; 36415; 80076; 81003; 83690; 71045; 96374; 99283; J2550; J7030

== ENCOUNTER 2019-10-14 13:37 | Emergency (ER) | payer OTHER ==
--- OUTSIDE RECORDS SUMMARY | 2019-10-14 15:45 | XMS REPORT | Clinical Summary ---
:[address] [facility] Address [address] [place] [address] Care Team Providers Name Role Phone Mal [...] hand Oneyda Malik MD 12/11/2018 Travel after 10/13/2018 Social History Tobacco Use Types Packs/Day Years Used Date Never Smoker Smokeless Tobacco: Never Used Sex Assigned at Date Recorded Not on file Job Start Date Occupation Industry Not on file Not on file Not on file Travel History Travel Start Travel End [place] 12/04/2018 12/09/2018 Last Filed Vital Signs Vital [...] Not on file Results Not on fileafter 10/13/2018 Advance Directives For more information, please contact:[place] [id number] [facility] Ramos[place], [place] [phone] Code Status Date Activated Date Inactivated Comments Full Code 12/11/2018 4:27 AM 12/11/2018 6:06 PM This code status was determined by: Patient Full Code 02/02/2017 12:13 AM 02/04/2017 2:39 PM This code status was determined by: Patient
--- OUTSIDE RECORDS SUMMARY | 2019-10-14 15:46 | XMS REPORT | Continuity of Care Document ---
:1990 Author Organization [facility] t Address [facility] [place] [address] Care Team Providers Name Role Phone Sharpless Primary Care Physician Herbert MERRITT, Maxine Attending Clinician King MERRITT, Resramesh Attending Clinician Kiara MARTINES Attending Clinician Unavailable Kiara MARTINES Admitting Clinician Unavailable Problems Condition Condition Condition Status Onset Resolution Last Treating Co mments Source Name Details Category Date Date Treatment Clinician Date Cellulitis Cellulitis Disease Active [facility] [place] Hypokalemi Hypokalemi Disease Active 2016-[address] [facility]10 [facility] 00 [place] Headache Headache Disease [facility] 00 [place] Elevated Elevated Disease [facility] 2016[facility] 00 [place] Aseptic Aseptic Disease Active 2016-[address] [facility] meningitis meningitis 0-08 Radha kes - 00:00: Medical 00 [place] Encephalit Encephalit Diagnosis Active [facility] Allergies, Adverse Reactions, Alerts This patient has no known allergies or adverse reactions. Social History Social Habit Start Date Stop Date Quantity Comments Source Sex Assigned At [facility] Smoking Status Start Date Stop Date Source Never smoker [facility] Medications Ordered Filled Start Stop Current Ordering Indication Dosage Frequency Signature Comments Components Source Medication Medication Date Date Medication? Clinician (SIG) Name Name clindamycin 2019-0 2019- No 300mg Take [address] (CLEOCIN) 12-11 capsule [facility] - 300 MG 00:00: 23:59 (300 mg Medical capsule 00 :00 total) by Center mouth every 6 (six) hours for 5 days. Acyclovir Acyclovir 2017- Yes Hossein [address] [facility] 11-18 Dylan [facility] - [facility] [address] [facility] Vital Signs Vital Name Observation Time Observation Value Comments Source Systolic blood 2018-12-11 15:11:00 121 mm[Hg] [facility] Diastolic blood 2018-12-11 15:11:00 67 mm[Hg] [facility] Heart rate 2018-12-11 15:11:00 94 /min [facility] Body temperature 2018-12-11 15:11:00 36.11 Jasmin [facility] Respiratory rate 2018-12-11 15:11:00 17 /min [facility] Oxygen saturation in 2018-12-11 15:11:00 95 /min [facility] Arterial blood by Medical Ce nter Pulse oximetry Body height 2018-12-11 11:16:00 155.8 cm [facility] Body weight Measured 2018-12-11 11:16:00 127.007 kg [facility] BMI 2018-12-11 11:16:00 52.35 kg/m2 [facility] Procedures This patient has no known procedures. Encounters Start End Encounter Admission Attending Care Care Encounter Source Date/Time Date/Time Type Type Clinicians Facility Department ID 2018-01-27 2018-01-27 Outpatient Ngozi Rodriguez [id number] [facility] 16[facility]01[facility]00 16[facility]01[facility] 2018-01-26 2018-01-26 Outpatient Ngozi Rodriguez [id number] [facility] 13:20:00 13:20:00 [facility] Medicine Medicine Outpat[facility] ent Clinics 2017-11-18 2017-11-18 Outpatient Ngozi Rodriguez [id number] [facility] 15:15:00 15:15:00 [facility] Medicine Medicine Outpat[facility] ent Clinics Results Test Description Test Time Test Comments Results Result Comments Source HIV-1 ANTIGEN WITH HIV-1/2 ANTIBODY 2017-02-03 16:26:00 Test Item Value Reference Range Interpretation Comme nts HIV-1 ANTIGEN WITH HIV 1\T\2 ANTIBODY (2) (BEAKER) (test Non reactive Nonreactive code = 2586) BASIC METABOLIC [id number] 06:30:00 Test Item Value Reference Range Interpretation [...] m DATA TO CALCULA TE ESTIMATED GFR. [id number] 06:19:00 Test Item Value Reference Range Interpretation Comments PHOSPHORUS (BEAKER) (test code = 1.9 mg/dL 2.3-4.7 L 604) [id number] 06:19:00 Test Item Value Reference Range Interpretation Comments MAGNESIUM (BEAKER) (test code = 1.8 mg/dL 1.6-2.6 627) HEPATIC FUNCTION [id number] 06:19:00 Test Item Value Reference Range Interpretation [...] 6-55 347) CBC W/PLT COUNT & AUTO [id number] 06:11:00 Test Item Value Reference Range Interpretation [...] (BEAKER) (test code = 2801) BASIC METABOLIC [id number] 10:11:00 Test Item Value Reference Range Interpretation [...] m DATA TO CALCULA TE ESTIMATED GFR. [id number] 09:56:00 Test Item Value Reference Range Interpretation Comments PHOSPHORUS (BEAKER) (test code = 1.6 mg/dL 2.3-4.7 L 604) [id number] 09:56:00 Test Item Value Reference Range Interpretation Comments MAGNESIUM (BEAKER) (test code = 2.0 mg/dL 1.6-2.6 627) HEPATIC FUNCTION [id number] 09:56:00 Test Item Value Reference Range Interpretation [...] 6-55 347) CBC W/PLT COUNT & AUTO [id number] 09:53:00 Test Item Value Reference Range Interpretation [...]
--- NOTE | 2019-10-14 16:48 | ER ---
Nurse's Notes [facility] Name: Elle Man Age: 29 yrs Sex: Female : 1990 Arrival Date: 10/14/2019 Time: 13:42 Bed 12 Private MD: Diagnosis: Acute upper respiratory infection, unspecified Presentation: 10/13 13:52 Chief complaint: Patient states: Dry cough, runny nose, sneezing for 2 days. Upper back ll1 pain for 1 day. No fever. 9 weeks . G3, P2. Coronavirus screen: Surgical mask placed on patient. Patient moved to private room, placed in contact and droplet isolation with eye protection until further assessment. Patient reports a cough. Patient denies shortness of breath or difficulty breathing. Patient denies measured and/or subjective temperature greater than 100.4F prior to today's visit. Patient denies travel on a cruise ship or to a country the [facility] currently lists as an affected area. Patient reports contact with known and/or suspected case of COVID-19. Brother and sister in law positive. Ebola Screen: Patient denies travel to an Ebola-affected area in the 21 days before illness onset. Onset: The symptoms/episode began/occurred yesterday. Anaphylaxis evaluation, no signs or symptoms of anaphylaxis were noted. Initial Sepsis Screen: Does the patient meet any 2 criteria? HR > 90 bpm. Risk Assessment: Do you want to hurt yourself or someone else? Patient reports no desire to harm self or others. Onset of symptoms was October 13, 2019. 13:52 Method Of Arrival: Ambulatory ll1 13:52 Acuity: [place] 3 ll1 Historical: - Allergies: 13:55 No Known Drug Allergies; ll1 - PMHx: 13:55 bacterial meningitis; ll1 - PSHx: 13:55 Hernia repair; ; ll1 - Immunization history:: Flu vaccine is not up to date. - Social history:: Smoking status: Patient denies any tobacco usage or history of. Patient/guardian denies using alcohol, street drugs, tobacco products. Screenin:15 Abuse screen: Denies threats or abuse. Denies injuries from another. Nutritional hb screening: No deficits noted. Tuberculosis screening: No symptoms or risk factors identified. Fall Risk None identified. Assessment: 16:15 General: Appears in no apparent distress. Behavior is calm, cooperative. Pain: Denies hb pain. Neuro: Level of Consciousness is awake, alert, obeys commands, Oriented to person, place, time, situation. Cardiovascular: Capillary refill < 3 seconds Patient's skin is warm and dry. Respiratory: Airway is patent Respiratory effort is even, unlabored, Respiratory pattern is regular, symmetrical. GI: No signs and/or symptoms were reported involving the gastrointestinal system. : No signs and/or symptoms were reported regarding the genitourinary system. EENT: No signs and/or symptoms were reported regarding the EENT system. Derm: Skin is pink, warm \T\ dry. Musculoskeletal: No signs and/or symptoms reported regarding the musculoskeletal system. Vital Signs: 13:52 BP 122 / 73; Pulse 98; Resp 16; Temp 98.2; Pulse Ox 99% ; Weight 122.47 kg; Height 5 ll1 ft. 11 in. (180.34 cm); Pain 3/10; 13:52 Body Mass Index 37.66 (122.47 kg, 180.34 cm) ll1 ED Course: 13:42 Patient arrived in ED. bp1 13:55 Triage completed. ll1 13:55 Arm band placed on Patient notified of wait time. ll1 16:06 Silvia Cardenas FNP-C is [facility]. kb 16:06 Torsten Sánchez MD is Attending Physician. kb 16:15 Patient has correct armband on for positive identification. hb 16:43 COVID Swab. jp3 16:44 COVID-19 Sent. jp3 16:46 Caryn Bear, RN is Primary Nurse. hb 17:02 No provider procedures requiring assistance completed. Patient did not have IV access hb during this emergency room visit. Administered Medications: No medications were administered Outcome: 16:46 Discharge ordered by . kb 17:02 Discharged to home ambulatory. hb 17:02 Condition: stable 17:02 Discharge instructions given to patient, Instructed on discharge instructions, follow up and referral plans. medication usage, Demonstrated understanding of instructions, follow-up care, medications. 17:04 Patient left the ED. hb Addendum: 10/23/2019 11:20 Addendum: Other Pt notified of positive COVID-19 swab results. Given information per d m5 CDC guidelines. Signatures: Silvia Cardenas FNP-C FNP-Ckb Markwardt, Deana, RN RN dm5 Caryn Bear RN RN Oniel Noel jp3 Dawn Quintero RN RN ll1 Nilda Rivas [facility] Corrections: (The following items were deleted from the chart) 10/13 13:56 13:52 Chief complaint: Patient states: Dry cough, runny nose, sneezing for 2 days. ll1 Upper back pain for 1 day. No fever. ll1
--- NOTE | 2019-10-14 16:49 | EDPHYS ---
Physician Documentation [facility] Name: Elle Man Age: 29 yrs Sex: Female : 1990 Arrival Date: 10/14/2019 Time: 13:42 Bed 12 Private MD: ED Physician Torsten Sánchez HPI: 10/13 16:42 This 29 yrs old Female presents to ER via Ambulatory with complaints of Dry kb Cough, Runny Nose, Sneezing, Back Pain. 16:43 The patient or guardian reports cough, that is intermittent, described as mild, with no kb sputum, flu symptoms, myalgias. Onset: The symptoms/episode began/occurred yesterday. Severity of symptoms: At their worst the symptoms were mild, moderate, in the emergency department the symptoms are unchanged. Modifying factors: The symptoms are alleviated by nothing, the symptoms are aggravated by nothing. Associated signs and symptoms: Pertinent positives: rhinorrhea, Pertinent negatives: chest pain, diarrhea, ear ache, fever, nausea, sore throat, vomiting. The patient has not experienced similar symptoms in the past. The patient has not recently seen a physician. Pt reports runny nose, sneezing, dry cough and body aches that started yesterday. States she found out 2 family members that she was around recently were COVID positive. Historical: - Allergies: 13:55 No Known Drug Allergies; ll1 - PMHx: 13:55 bacterial meningitis; ll1 - PSHx: 13:55 Hernia repair; ; ll1 - Immunization history:: Flu vaccine is not up to date. - Social history:: Smoking status: Patient denies any tobacco usage or history of. Patient/guardian denies using alcohol, street drugs, tobacco products. ROS: 16:44 Neck: Negative for injury, pain, and swelling, Cardiovascular: Negative for chest pain, kb palpitations, and edema, Abdomen/GI: Negative for abdominal pain, nausea, vomiting, diarrhea, and constipation, Back: Negative for injury and pain, MS/Extremity: Negative for injury and deformity, Skin: Negative for injury, rash, and discoloration, Neuro: Negative for headache, weakness, numbness, tingling, and seizure. 16:44 Constitutional: Positive for body aches, Negative for chills, fatigue, fever, malaise, poor PO intake, weight loss. 16:44 ENT: Positive for rhinorrhea. 16:44 Respiratory: Positive for cough, Negative for dyspnea on exertion, hemoptysis, orthopnea, pleurisy, shortness of breath, sputum production, wheezing. Exam: 16:44 Constitutional: This is a well developed, well nourished patient who is awake, alert, kb and in no acute distress. Head/Face: Normocephalic, atraumatic. ENT: Nares patent. No nasal discharge, no septal abnormalities noted. Tympanic membranes are normal and external auditory canals are clear. Oropharynx with no redness, swelling, or masses, exudates, or evidence of obstruction, uvula midline. Mucous membranes moist. Neck: Trachea midline, no thyromegaly or masses palpated, and no cervical lymphadenopathy. Supple, full range of motion without nuchal rigidity, or vertebral point tenderness. No Meningismus. Chest/axilla: Normal chest wall appearance and motion. Nontender with no deformity. No lesions are appreciated. Cardiovascular: Regular rate and rhythm with a normal S1 and S2. No gallops, murmurs, or rubs. Normal PMI, no JVD. No pulse deficits. Respiratory: Lungs have equal breath sounds bilaterally, clear to auscultation and percussion. No rales, rhonchi or wheezes noted. No increased work of breathing, no retractions or nasal flaring. Abdomen/GI: Soft, non-tender, with normal bowel sounds. No distension or tympany. No guarding or rebound. No evidence of tenderness throughout. Skin: Warm, dry with normal turgor. Normal color with no rashes, no lesions, and no evidence of cellulitis. MS/ Extremity: Pulses equal, no cyanosis. Neurovascular intact. Full, normal range of motion. Neuro: Awake and alert, GCS 15, oriented to person, place, time, and situation. Cranial nerves II-XII grossly intact. Motor strength 5/5 in all extremities. Sensory grossly intact. Cerebellar exam normal. Normal gait. Vital Signs: 13:52 BP 122 / 73; Pulse 98; Resp 16; Temp 98.2; Pulse Ox 99% ; Weight 122.47 kg; Height 5 ll1 ft. 11 in. (180.34 cm); Pain 3/10; 13:52 Body Mass Index 37.66 (122.47 kg, 180.34 cm) ll1 MDM: 16:12 Patient medically screened. kb 16:45 Data reviewed: vital signs, nurses notes. Data interpreted: Pulse oximetry: on room air kb is 99 %. Interpretation: normal. Counseling: I had a detailed discussion with the patient and/or guardian regarding: the historical points, exam findings, and any diagnostic results supporting the discharge/admit diagnosis, the need for outpatient follow up, a family practitioner, to return to the emergency department if symptoms worsen or persist or if there are any questions or concerns that arise at home. 10/13 16:19 Order name: AGNES-Jarod banks Administered Medications: No medications were administered Disposition: 10/14 08:36 Co-signature as Attending Physician, Torsten Sánchez MD I agree with the assessment and kdr plan of care. Disposition: 10/14/19 16:46 Discharged to Home. Impression: Acute upper respiratory infection, unspecified. - Condition is Stable. - Discharge Instructions: Upper Respiratory Infection, Adult, [id number], Viral Respiratory Infection, [id number]-[id number]. - Medication Reconciliation Form, Thank You Letter, Antibiotic Education, Prescription Opioid Use, Work release form form. - Follow up: Private Physician; When: 2 - 3 days; Reason: Recheck today's complaints, Continuance of care, Re-evaluation by your physician. Follow up: Emergency Department; When: As needed; Reason: Worsening of condition. Signatures: Dispatcher [employer] Silvia Cardenas, INSTRUCTIONAL COORDINATOR-C JOSHUA-Torsten Saleem MD MD [facility] Caryn Bear RN RN Dawn Quintero RN RN ll1 Corrections: (The following items were deleted from the chart) 10/13 16:44 16:42 Associated signs and symptoms: Pertinent positives: kb kb 17:04 16:46 10/14/2019 16:46 Discharged to Home. Impression: Acute upper respiratory hb infection, unspecified. Condition is Stable. Forms are Medication Reconciliation Form, Thank You Letter, Antibiotic Education, Prescription Opioid Use. Follow up: Private Physician; When: 2 - 3 days; Reason: Recheck today's complaints, Continuance of care, Re-evaluation by your physician. Follow up: Emergency Department; When: As needed; Reason: Worsening of condition. kb
[2019-10-14 17:33] VITALS: BP 122/73; TEMP 98.2; O2SAT 99
== END 2019-10-14 17:04 | disposition home or self-care (01) ==
LOC: ER 13:37
DX: O98.811 Other maternal infectious and parasitic diseases complicating pregnancy, first trimester (principal); J06.9 Acute upper respiratory infection, unspecified; Z20.828 Contact with and (suspected) exposure to other viral communicable diseases
CPT/HCPCS: 99283; U0002

== ENCOUNTER 2020-05-15 17:54 | Emergency (ER) | payer OTHER ==
--- OUTSIDE RECORDS SUMMARY | 2020-05-15 17:57 | XMS REPORT | Clinical Summary ---
:1990 Author Organization [facility] Address [address] [place] [address] Care Team Providers Name Role Phone Mal Primary Care Provider Allergies No Known Allergies Medications No known medications Active Problems Problem Noted Date Cellulitis of hand 12/11/2018 Hypokalemia 02/03/2017 Headache 02/03/2017 Elevated LFTs 02/03/2017 Aseptic meningitis 02/01/2017 Social History Tobacco Use Types Packs/Day Years Used Date Never Smoker Smokeless Tobacco: Never Used Sex Assigned at Date Recorded Not on file Last Filed Vital Signs Not on file Plan of Treatment Health Maintenance Due Date Last Done Comments LIPID PANEL 2010 CERVICAL CANCER SCREENING PAP ONLY (Age 21-65) 2011 INFLUENZA VACCINE (#1) 2019 02/01/2015 Results Not on fileafter 05/15/2019 Advance Directives For more information, please contact: [phone] Code Status Date Activated Date Inactivated Comments Full Code 12/11/2018 4:27 AM 12/11/2018 6:06 PM This code status was determined by: Patient Full Code 02/02/2017 12:13 AM 02/04/2017 2:39 PM This code status was determined by: Patient
--- OUTSIDE RECORDS SUMMARY | 2020-05-15 17:57 | XMS REPORT | Continuity of Care Document ---
:1990 Author Organization [facility] t Address [address] [place] [address] Care Team Providers Name Role Phone Sharpless Primary Care Physician Nurse, Women's Health Attending Clinician Unavailable Francisco [facility]ERRITT [facility] Unavailable Ultrasound, [facility] Attending Clinician Unavailable Ultrasound Attending Clinician Unavailable Gumaro MERRITT, Cam Attending Clinician 5, [facility] U[facility] Room Attending Clinician Unavailable Kiara MARTINES Attending Clinician Unavailable Kiara MARTINES Admitting Clinician Unavailable Problems Condition Condition Condition Status Onset Resolution Last Treating Co mments Source Name Details Category Date Date Treatment Clinician Date Cellulitis Cellulitis Disease Active [facility] 00 [place] Hypokalemi Hypokalemi Disease Active 2016-[address] [facility] a 0-10 [facility] - [facility]: Medical 00 [place] Headache Headache Disease Active 2016-04 [facility] 00 [place] Elevated Elevated Disease Active 2016-04 [facility] LFT[facility] LFTs 0-10 [facility] - [facility]: Medical 00 [place] Aseptic Aseptic Disease Active 2016-[address] meningitis meningitis 0-08 Radha kes - 00:00: Medical 00 [place] Encephalit Encephalit Diagnosis [facility] Allergies, Adverse Reactions, Alerts This patient has no known allergies or adverse reactions. Social History Social Habit Start Date Stop Date Quantity Comments Source Sex Assigned At [facility] St Garcia kes [facility] Tobacco use and 2017-02-01 2017-02-[address] Radha kes - exposure 00:00:00 00:00:00 [facility] Center Smoking Status Start Date Stop Date Source Never smoker [facility] Medications Ordered Filled Start Stop Current Ordering Indication Dosage Frequency Signature Comments Components Source Medication Medication Date Date Medication? Clinician (SIG) Name Name Acyclovir Acyclovir Yes Hossein [address] 7[facility]25 Dylan [facility] Procedures This patient has no known procedures. Plan of Care Planned Activity Planned Date Details Comments Source Future Scheduled 2019-12-[address] [facility] - Test 00:00:00 (#1) [code = [facility] INFLUENZA VACCINE (#1)] Future Scheduled [address] [facility] - Test 00:00:00 malignant neoplasm Medical C enter of cervix (procedure) [code = 023982251] Future Scheduled [address] - Test 00:00:00 (procedure) [code = [facility] 25323470] Encounters Start End Encounter Admission Attending Care Care Encounter Source Date/Time Date/Time Type Type Clinicians Facility Department ID 2020-05-02 2020-05-02 Nurse Nurse, [facility] [id number] 14:01:32 14:32:49 Visit [facility] [place] [id number] [facility] 4.2.7.2.686 Professnguyễn [phone] [address] 2020-04-18 2020-04-18 Initial RIC Singh [id number] 11:38:03 13:17:26 Rishi Y HEALTH [id number] Visit CLINICS [id number] 2020-04-16 2020-04-16 Routine Room, [facility] [id number] 15:00:45 17:11:56 Wh Nst [place] [id number] Visit [place] 4.2.7.2.686 Professnguyễn [phone] [address] 2020-04-16 2020-04-16 Telephone RIC Singh [id number] 00:00:00 00:00:00 [facility] [id number] [facility] 4.2.7.2.686 [id number] 095 2020-04-13 2020-04-13 Ocean Clam Boat Captain Ultrasound, [facility] [id number] 13:25:43 13:55:43 Visit Adc Mfm [place] [id number] [place] 4.2.7.2.686 Professio [phone] [address] 2020-04-12 2020-04-12 Routine Room, Adc [facility] [id number] 14:59:15 16:52:34 Wh Nst [place] [id number] Visit [place] [id number] Professio [phone] [address] 2020-04-04 2020-04-04 Ocean Clam Boat Captain Ultrasound, [facility] [id number] 09:54:38 10:24:38 Visit [facility] PUSHCART PEDDLER [id number] [facility] [id number] MATERNAL [id number] & CHILD [address] [place] [address] 2020-03-30 2020-03-30 Ocean Clam Boat Captain Ultrasound, [facility] [id number] 14:26:00 14:56:00 Visit Adc Mf [place] [id number] [place] 4.2.7.2.686 Professio [phone] [address] 2020-03-29 2020-03-29 Routine Room, Adc [facility] [id number] 14:58:43 16:00:14 Wh Nst [place] [id number] Visit [place] 4.2.7.2.686 Professio [phone] [address] 2020-03-28 2020-03-28 Case Ellen Naik [facility] [id number] 00:00:00 00:00:00 Management Cam [place] [id number] [place] 4.2.7.2.686 Professio [phone] [facility] 134 [facility] 2020-03-26 2020-03-26 Ocean Clam Boat Captain Ultrasound, [facility] [id number] 15:09:46 15:33:40 Visit [facility] PUSHCART PEDDLER [id number] [facility] 4.2.7.2.686 MATERNAL [id number] & CHILD [facility] 2020-03-14 2020-03-14 Routine Room, [facility] [id number] 11:24:52 12:51:24 Wh Nst [place] [id number] Visit [place] 4.2.7.2.686 Professio [phone] [address] 2020-03-09 2020-03-09 Ocean Clam Boat Captain 5, [facility] UNIVERSIT [id number] 13:26:10 14:23:27 Visit [facility] [id number] [facility] [id number] [id number] [facility] 2018-01-27 2018-01-27 [facility] [id number] 16:01:00 16:01:00 [facility] ent Clinics 2018-01-26 2018-01-26 [facility] [id number] 13:20:00 13:20:00 [facility] ent Clinics 2017-11-18 2017-11-18 [facility] [id number] 15:15:00 15:15:00 [facility] ent Clinics Results Test Description Test Time Test Comments Results Result Comments Source HIV-1 ANTIGEN WITH HIV-1/2 ANTIBODY 2017-02-03 16:26:00 Test Item Value Reference Range Interpretation Comme nts HIV-1 ANTIGEN WITH HIV 1\T\2 ANTIBODY (2) (BEAKER) (test Non reactive Nonreactive code = 2586) BASIC METABOLIC [id number] 06:30:00 Test Item Value Reference Range Interpretation [...] m DATA TO CALCULA TE ESTIMATED GFR. [id number] 06:19:00 Test Item Value Reference Range Interpretation Comments PHOSPHORUS (BEAKER) (test code = 1.9 mg/dL 2.3-4.7 L 604) [id number] 06:19:00 Test Item Value Reference Range Interpretation Comments MAGNESIUM (BEAKER) (test code = 1.8 mg/dL 1.6-2.6 627) HEPATIC FUNCTION [id number] 06:19:00 Test Item Value Reference Range Interpretation [...] 6-55 347) CBC W/PLT COUNT & AUTO [id number] 06:11:00 Test Item Value Reference Range Interpretation [...] (BEAKER) (test code = 2801) BASIC METABOLIC [id number] 10:11:00 Test Item Value Reference Range Interpretation [...] m DATA TO CALCULA TE ESTIMATED GFR. [id number] 09:56:00 Test Item Value Reference Range Interpretation Comments PHOSPHORUS (BEAKER) (test code = 1.6 mg/dL 2.3-4.7 L 604) [id number] 09:56:00 Test Item Value Reference Range Interpretation Comments MAGNESIUM (BEAKER) (test code = 2.0 mg/dL 1.6-2.6 627) HEPATIC FUNCTION [id number] 09:56:00 Test Item Value Reference Range Interpretation [...] 6-55 347) CBC W/PLT COUNT & AUTO [id number] 09:53:00 Test Item Value Reference Range Interpretation [...]
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
--- NOTE | 2020-05-15 19:08 | ER ---
Nurse's Notes [facility] Name: Elle Man Age: 29 yrs Sex: Female : 1990 Arrival Date: 05/15/2020 Time: 17:57 Bed Waiting Private MD: Diagnosis: ED Course: 05/15 17:57 Patient arrived in ED. rg4 19:05 Patient's name was called from ER lobby. No response. Unable to locate patient. Will ca1 disposition as left without being seen by a provider. Administered Medications: No medications were administered Outcome: 19:08 Patient left the ED. ca1 Signatures: Altagracia Medina rg4 Maisha Velasco RN RN ca1
== END 2020-05-15 19:08 | disposition left against medical advice (07) ==
LOC: ER 17:54
DX: Z02.9 Encounter for administrative examinations, unspecified (principal)

== ENCOUNTER 2020-05-16 23:04 | Emergency (ER) | payer OTHER ==
--- OUTSIDE RECORDS SUMMARY | 2020-05-16 23:06 | XMS REPORT | Clinical Summary ---
:[address] [facility] Address [address] [place] [address] Care Team Providers Name Role Phone Mal [...] (#1) 2019 02/01/2015 Results Not on fileafter 05/16/2019 Advance Directives For more information, please contact: [phone] Code Status Date Activated Date Inactivated Comments Full Code 12/11/2018 4:27 AM 12/11/2018 6:06 PM This code status was determined by: Patient Full Code 02/02/2017 12:13 AM 02/04/2017 2:39 PM This code status was determined by: Patient
--- OUTSIDE RECORDS SUMMARY | 2020-05-16 23:07 | XMS REPORT | Continuity of Care Document ---
:1990 Author Organization [facility] t Address [address] [place] [address] Care Team Providers Name Role Phone Sharpless Primary Care Physician Nurse, Women's Health Attending Clinician Unavailable Francisco MERRITT Attending Clinician [facility] N[facility] Attending Clinician Unavailable Ultrasound, [facility] Attending Clinician Unavailable Ultrasound Attending Clinician Unavailable [...] hand 8-17 [facility] - 00:[facility]: Medical 00 [place] Hypokalemi Hypokalemi Disease Active 2016-[address] a a 0-10 [facility] - 00:00: Medical 00 [place] Headache Headache Disease Active 2016-04 [facility] 00:[facility]: Medical 00 [place] Elevated Elevated Disease Active 2016-04 [facility] LFTs LFTs 0-10 [facility] - 00:00: Medical 00 [place] Aseptic Aseptic Disease Active 2016-[address] meningitis meningitis 0-08 Radha kes - 00:00: Medical 00 [place] Encephalit Encephalit Diagnosis [facility] Allergies, Adverse Reactions, Alerts This patient has no known allergies or adverse reactions. Social History Social Habit Start Date Stop Date Quantity Comments Source [facility] Tobacco use and 2017-02-01 2017-02-[address] Radha kes - exposure 00:00:00 00:00:00 Medical Center Smoking Status Start Date Stop Date Source Never smoker [facility] Medications Ordered Filled Start Stop Current [...] [facility] - Test 00:00:00 (#1) [code = [facility] INFLUENZA VACCINE (#1)] Future Scheduled [address] [facility] - Test 00:00:00 malignant neoplasm Medical C enter of cervix (procedure) [code = 660447490] Future Scheduled [address] [facility] - Test 00:00:00 (procedure) [code = [facility] 38452996] Encounters Start End Encounter Admission Attending Care Care Encounter Source Date/Time Date/Time Type Type Clinicians Facility Department ID 2020-05-02 2020-05-02 Nurse Nurse, [place] [id number] 14:01:32 14:32:49 Visit [facility] [place] 350.1.13.10 [facility] 4.2.7.2.686 Professio [phone] [address] 2020-04-18 2020-04-18 Initial Singh, LUI [id number] 11:38:03 13:17:26 Rishi Y HEALTH [id number] Visit [facility] 4.2.7.2.686 [id number] 2020-04-16 2020-04-16 Routine Room, [facility] [id number] 15:00:45 17:11:56 Wh Nst [place] 350.1.13.10 Visit [place] 4.2.7.2.686 Professio [phone] [address] 2020-04-16 2020-04-16 Telephone RIC Singh [id number] 00:00:00 00:00:00 [facility] [id number] [facility] 4.2.7.2.686 [id number] 092020-04-13 2020-04-13 [place] Department Supervisor Ultrasound, [facility] [id number] 13:25:43 13:55:43 Visit Adc Mfm [place] 350.1.13.10 [place] 4.2.7.2.686 Professio [id number] [address] 2020-04-12 2020-04-12 Routine Room, Adc [facility] [id number] 14:59:15 16:52:34 Wh Nst [place] 350.1.13.10 Visit [place] 4.2.7.2.686 Professio [phone] [address] 2020-04-04 2020-04-04 [place] Department Supervisor Ultrasound, [facility] [id number] 09:54:38 10:24:38 Visit [facility] SMALL ARMS REPAIRER 350.1.13.10 [facility] 4.2.7.2.686 MATERNAL [id number] & CHILD [address] [place] [address] 2020-03-30 2020-03-30 [place] Department Supervisor Ultrasound, [facility] [id number] 14:26:00 14:56:00 Visit Adc Mfm [place] 350.1.13.10 [place] 4.2.7.2.686 Professio [phone] [address] 2020-03-29 2020-03-29 Routine Room, Adc [facility] [id number] 14:58:43 16:00:14 Wh Nst [place] 350.1.13.10 Visit [place] 4.2.7.2.686 Professio [phone] [address] 2020-03-28 2020-03-28 Case Naik, Ellen [facility] [id number] 00:00:00 00:00:00 Management Cam [place] 350.1.13.10 [place] 4.2.7.2.686 Professio [phone] [facility] 134 [facility] 2020-03-26 2020-03-26 [place] Department Supervisor Ultrasound, [facility] [id number] 15:09:46 15:33:40 Visit [facility] SMALL ARMS REPAIRER [id number] [facility] 4.2.7.2.686 MATERNAL [id number] & CHILD [facility] 2020-03-14 2020-03-14 Routine Room, [facility] [id number] 11:24:52 12:51:24 Wh Nst [place] 350.1.13.10 Visit [place] 4.2.7.2.686 Professio [phone] [address] 2020-03-09 2020-03-09 [place] Department Supervisor 5, [facility] UNIVERSIT [id number] 13:26:10 14:23:27 Visit [facility] [id number] [facility] 4.2.7.2.686 [id number] 104 2018-01-27 2018-01-27 [facility] [id number] 16:01:00 16:01:00 [facility] ent Clinics 2018-01-26 2018-01-26 [facility] [id number] 13:20:00 13:20:00 [facility] ent Clinics 2017-11-18 2017-11-18 [facility] [id number] 15:15:00 15:15:00 [facility] ent Clinics Results Test Description Test Time Test Comments Results Result Comments Source HIV-1 ANTIGEN WITH HIV-1/2 ANTIBODY 2017-02-03 16:26:00 Test Item Value Reference Range Interpretation Comme nts HIV-1 ANTIGEN WITH HIV 1\T\2 ANTIBODY (2) (BEAKER) (test Non reactive Nonreactive code = 2586) BASIC METABOLIC [id number] 06:30:00 Test Item Value Reference Range Interpretation [...] m DATA TO CALCULA TE ESTIMATED GFR. [id number] 06:19:00 Test Item Value Reference Range Interpretation Comments PHOSPHORUS (BEAKER) (test code = 1.9 mg/dL 2.3-4.7 L 604) [id number] 06:19:00 Test Item Value Reference Range Interpretation Comments MAGNESIUM (BEAKER) (test code = 1.8 mg/dL 1.6-2.6 627) HEPATIC FUNCTION [id number] 06:19:00 Test Item Value Reference Range Interpretation [...] 6-55 347) CBC W/PLT COUNT & AUTO [id number] 06:11:00 Test Item Value Reference Range Interpretation [...] (BEAKER) (test code = 2801) BASIC METABOLIC [id number] 10:11:00 Test Item Value Reference Range Interpretation [...] m DATA TO CALCULA TE ESTIMATED GFR. [id number] 09:56:00 Test Item Value Reference Range Interpretation Comments PHOSPHORUS (BEAKER) (test code = 1.6 mg/dL 2.3-4.7 L 604) [id number] 09:56:00 Test Item Value Reference Range Interpretation Comments MAGNESIUM (BEAKER) (test code = 2.0 mg/dL 1.6-2.6 627) HEPATIC FUNCTION [id number] 09:56:00 Test Item Value Reference Range Interpretation [...] 6-55 347) CBC W/PLT COUNT & AUTO [id number] 09:53:00 Test Item Value Reference Range Interpretation [...]
[2020-05-16] MEDS ORDERED: LORAZEPAM 1 MG TABLET ONE (23:42)
--- NOTE | 2020-05-17 01:58 | ER ---
Nurse's Notes [facility] Name: Elle Man Age: 29 yrs Sex: Female : 1990 Arrival Date: 05/16/2020 Time: 23:08 Bed External Waiting Private MD: None, None Diagnosis: Presentation: 05/16 23:10 Care prior to arrival: None. sg 23:10 Acuity: LAYTON 4 sg Triage Assessment: 23:10 General: Appears in no apparent distress. well groomed, well developed, well nourished, sg Behavior is calm, cooperative, appropriate for age. Pain: Complains of pain in chest. Cardiovascular: Patient's skin is warm and dry. Chest pain is denied. Respiratory: Airway is patent Respiratory effort is even, unlabored, Respiratory pattern is regular, symmetrical. Derm: Skin is pink, warm \T\ dry. Historical: - Allergies: 23:10 No Known Allergies; sg - PMHx: 23:10 bacterial meningitis; sg - Immunization history:: Adult Immunizations up to date. - Social history:: Smoking status: Patient denies any tobacco usage or history of. ED Course: 23:08 Patient arrived in ED. es 23:08 None, None is Private Physician. es 23:10 Triage completed. sg 23:10 Arm band placed on. sg 05/17 00:07 Appears to be sleeping. sg Administered Medications: No medications were administered Outcome: 01:57 Patient left the ED. sg Signatures: Naveed Nunez RN RN Sandy Duong Corrections: (The following items were deleted from the chart) 00:07 05/16 23:10 Acuity: [place] 3 sg sg
== END 2020-05-17 01:57 | disposition left against medical advice (07) ==
LOC: ER 23:04
DX: Z53.21 Procedure and treatment not carried out due to patient leaving prior to being seen by health care provider (principal)
CPT/HCPCS: 99281

== ENCOUNTER 2020-10-13 13:08 | Emergency (ER) | payer OTHER ==
--- OUTSIDE RECORDS SUMMARY | 2020-10-13 13:11 | XMS REPORT | Continuity of Care Document ---
:1990 Author Organization [facility] t Address [address] [place] [address] Care Team Providers Name Role Phone Sharpless Primary Care Physician Zka MERRITT Attending Clinician Kiara MARTINES Attending Clinician Unavailable Kiara MARTINES Admitting Clinician Unavailable Problems Condition Condition Condition Status Onset Resolution Last Treating Co mments Source Name Details Category Date Date Treatment Clinician Date Cellulitis Cellulitis Disease Active [facility] 00 [place] Hypokalemi Hypokalemi Disease Active 2016-[address] [facility]10 [facility] 00 [place] Headache [facility] [place] Elevated Elevated Disease [facility] 2016[facility] 00 [place] Aseptic Aseptic Disease Active 2016-[address] meningitis meningitis 0-08 Radha kes - 00:00: Medical 00 [place] Encephalit Encephalit Diagnosis Active [facility] Allergies, Adverse Reactions, Alerts This patient has no known allergies or adverse reactions. Social History Social Habit Start Date Stop Date Quantity Comments Source Sex Assigned At [facility] Tobacco use and 2017-02-01 2017-02-01 Never used [facility] - [facility] Smoking Status Start Date Stop Date Source Never smoker OLIVA [facility]iz [facility] Medications Ordered Filled Start Stop Current Ordering Indication Dosage Frequency Signature Comments Components Source Medication Medication Date Date Medication? Clinician (SIG) Name Name Acyclovir Acyclovir Yes Hossein [address] [facility] Procedures This patient has no known procedures. Plan of Care Planned Activity Planned Date Details Comments Source Future Scheduled 2019-12-[address] [facility] Test 00:00:00 (#1) [code = [facility] INFLUENZA VACCINE (#1)] Future Scheduled [address] [facility] [facility] - Test 00:00:00 malignant neoplasm Medical C enter of cervix (procedure) [code = 219737589] Future Scheduled [address] [facility] - Test 00:00:00 (procedure) [code = [facility] 83284415] Encounters Start End Encounter Admission Attending Care Care Encounter Source Date/Time Date/Time Type Type Clinicians Facility Department ID 2020-08-13 2020-08-13 Office Zak [facility] [id number] 08:41:30 09:13:07 Visit Belén Murillo [id number] Miguel A [id number] Sharon [id number] [address] 2018-01-27 2018-01-27 Outpatient Ngozi Melvint [id number] [facility] 16:01[facility]00 16:01:00 [facility] 2018-01-26 2018-01-26 [place]patient [place]zi [place] [id number] [facility] 13:20:00 13:20:00 [facility] 2017-11-18 2017-11-18 Outpatient Braz[place]gi [place] [id number] [address] 15:15:00 15:15:00 [facility] Results Test Description Test Time Test Comments Results Result Comments Source HIV-1 ANTIGEN WITH HIV-1/2 ANTIBODY 2017-02-03 16:26:00 Test Item Value Reference Range Interpretation Comme nts HIV-1 ANTIGEN WITH HIV 1\T\2 ANTIBODY (2) (BEAKER) (test Non reactive Nonreactive code = 6040) BASIC METABOLIC [id number] 06:30:00 Test Item Value Reference Range Interpretation [...] m DATA TO CALCULA TE ESTIMATED GFR. [id number] 06:19:00 Test Item Value Reference Range Interpretation Comments PHOSPHORUS (BEAKER) (test code = 1.9 mg/dL 2.3-4.7 L 604) [id number] 06:19:00 Test Item Value Reference Range Interpretation Comments MAGNESIUM (BEAKER) (test code = 1.8 mg/dL 1.6-2.6 627) HEPATIC FUNCTION [id number] 06:19:00 Test Item Value Reference Range Interpretation [...] 6-55 347) CBC W/PLT COUNT & AUTO [id number] 06:11:00 Test Item Value Reference Range Interpretation [...] (BEAKER) (test code = 2801) BASIC METABOLIC [id number] 10:11:00 Test Item Value Reference Range Interpretation [...] m DATA TO CALCULA TE ESTIMATED GFR. [id number] 09:56:00 Test Item Value Reference Range Interpretation Comments PHOSPHORUS (BEAKER) (test code = 1.6 mg/dL 2.3-4.7 L 604) [id number] 09:56:00 Test Item Value Reference Range Interpretation Comments MAGNESIUM (BEAKER) (test code = 2.0 mg/dL 1.6-2.6 627) HEPATIC FUNCTION [id number] 09:56:00 Test Item Value Reference Range Interpretation [...] 6-55 347) CBC W/PLT COUNT & AUTO [id number] 09:53:00 Test Item Value Reference Range Interpretation [...] % 0-1 PERCENT (BEAKER) (test code = 5540)
--- NOTE | 2020-10-13 16:17 | ER ---
Nurse's Notes [facility] Name: Elle Man Age: 30 yrs Sex: Female : 1990 Arrival Date: 10/13/2020 Time: 13:15 Bed 14 Private MD: Diagnosis: Acute upper respiratory infection, unspecified Presentation: 10/13 13:23 Chief complaint: Cough and congestion x 2-3 days. Denies SOB/fever. Coronavirus screen: hb Client presents with at least one sign or symptom that may indicate coronavirus-19. Standard/surgical mask placed on the client. Ebola Screen: No symptoms or risks identified at this time. Initial Sepsis Screen: Does the patient meet any 2 criteria? No. Patient's initial sepsis screen is negative. Does the patient have a suspected source of infection? No. Patient's initial sepsis screen is negative. Risk Assessment: Do you want to hurt yourself or someone else? Patient reports no desire to harm self or others. Onset of symptoms was October 11, 2020. 13:23 Method Of Arrival: Ambulatory 13:23 Acuity: LAYTON 4 hb Historical: - Allergies: 13:25 No Known Allergies; hb - Home Meds: 13:25 None [Active]; hb - PMHx: 13:25 bacterial meningitis; hb - PSHx: 13:25 None; hb - Immunization history:: Adult Immunizations up to date. - Social history:: Smoking status: Patient denies any tobacco usage or history of. Screenin:10 Abuse screen: Denies threats or abuse. Nutritional screening: No deficits noted. vg1 Tuberculosis screening: No symptoms or risk factors identified. Fall Risk No fall in past 12 months (0 pts). No secondary diagnosis (0 pts). No IV (0 pts). Ambulatory Aid- None/Bed Rest/Nurse Assist (0 pts). Gait- Normal/Bed Rest/Wheelchair (0 pts) Mental Status- Oriented to own ability (0 pts). Total Archuleta Fall Scale indicates No Risk (0-24 pts). Assessment: 14:00 General: Appears in no apparent distress. comfortable, Behavior is calm, cooperative. vg1 Pain: Denies pain. Neuro: Level of Consciousness is awake, alert, obeys commands, Oriented to person, place, time, situation. Cardiovascular: Patient's skin is warm and dry. Respiratory: Reports cough that is Airway is patent Respiratory effort is even, unlabored, Breath sounds are clear bilaterally. GI: No signs and/or symptoms were reported involving the gastrointestinal system. : No signs and/or symptoms were reported regarding the genitourinary system. EENT: No signs and/or symptoms were reported regarding the EENT system. Derm: Skin is intact, is healthy with good turgor. Musculoskeletal: Circulation, motion, and sensation intact. 15:12 Reassessment: Patient appears in no apparent distress at this time. No changes from vg1 previously documented assessment. Patient and/or family updated on plan of care and expected duration. Pain level reassessed. Patient is alert, oriented x 3, equal unlabored respirations, skin warm/dry/pink. Patient denies pain at this time. 16:26 Reassessment: Patient appears in no apparent distress at this time. Patient and/or vg1 family updated on plan of care and expected duration. Pain level reassessed. Patient is alert, oriented x 3, equal unlabored respirations, skin warm/dry/pink. Patient denies pain at this time. Vital Signs: 13:23 Pulse 82; Resp 16; Temp 97.6; Pulse Ox 99% on R/A; Pain 0/10; hb 16:26 BP 136 / 82; Pulse 70; Resp 16; Pulse Ox 99% ; vg1 ED Course: 13:15 Patient arrived in ED. mr 13:21 Hamlet Tavares PA is PHCP. [facility] 13:21 Yasmeen Almazan MD is Attending Physician. [facility] 13:24 Triage completed. hb 13:25 Arm band placed on. hb 13:48 Indira Medina, RN is Primary Nurse. vg1 14:10 Patient has correct armband on for positive identification. Bed in low position. Call vg1 light in reach. Side rails up X 1. 14:12 COVID swab sent to lab. Flu and/or RSV swab sent to lab. Strep swab sent to lab. vg1 16:26 No provider procedures requiring assistance completed. Patient did not have IV access vg1 during this emergency room visit. Administered Medications: No medications were administered Outcome: 16:16 Discharge ordered by . [facility] 16:27 Discharged to home ambulatory. vg1 16:27 Condition: stable 16:27 Discharge instructions given to patient, Instructed on discharge instructions, follow up and referral plans. medication usage, Demonstrated understanding of instructions, follow-up care, medications, Prescriptions given X 2. 16:27 Patient left the ED. vg1 Signatures: Hamlet Tavares PA PA jmm Rivera, Mary mr Caryn Bear, RN RN Indira Leal RN RN vg1 Corrections: (The following items were deleted from the chart) 16:30 16:26 IV discontinued, intact, bleeding controlled, No redness/swelling at site. vg1 Pressure dressing applied, vg1
--- NOTE | 2020-10-13 16:17 | EDPHYS ---
Physician Documentation [facility] Name: Elle Man Age: 30 yrs Sex: Female : 1990 Arrival Date: 10/13/2020 Time: 13:15 Bed 14 Private MD: ED Physician Yasmeen Almazan HPI: 10/13 13:48 This 30 yrs old Female presents to ER via Ambulatory with complaints of jmm Congestion, Cough. 13:48 The patient or guardian reports cough. Onset: The symptoms/episode began/occurred jmm gradually, 3 day(s) ago. Modifying factors: The symptoms are alleviated by nothing, the symptoms are aggravated by nothing. Associated signs and symptoms: Pertinent positives: rhinorrhea, Pertinent negatives: chest pain, diarrhea, ear ache, fever, sore throat, vomiting. The patient has experienced similar episodes in the past. Historical: - Allergies: 13:25 No Known Allergies; hb - Home Meds: 13:25 None [Active]; hb - PMHx: 13:25 bacterial meningitis; hb - PSHx: 13:25 None; hb - Immunization history:: Adult Immunizations up to date. - Social history:: Smoking status: Patient denies any tobacco usage or history of. ROS: 13:48 Constitutional: Negative for fever, chills, and weight loss. jmm 13:48 ENT: Positive for rhinorrhea, sinus congestion. 13:48 Respiratory: Positive for cough. 13:48 All other systems are negative. Exam: 13:48 Constitutional: This is a well developed, well nourished patient who is awake, alert, jmm and in no acute distress. Head/Face: atraumatic. Eyes: EOMI, no conjunctival erythema appreciated ENT: Moist Mucus Membranes Neck: Trachea midline, Supple Chest/axilla: Normal chest wall appearance and motion. Cardiovascular: Regular rate and rhythm. No edema appreciated Respiratory: Normal respirations, no respiratory distress appreciated Abdomen/GI: Non distended, soft Back: Normal ROM Skin: General appearance color normal MS/ Extremity: Moves all extremities, no obvious deformities appreciated, no edema noted to the lower extremities Neuro: Awake and alert, normal gait Psych: Behavior is normal, Mood is normal, Patient is cooperative and pleasant Vital Signs: 13:23 Pulse 82; Resp 16; Temp 97.6; Pulse Ox 99% on R/A; Pain 0/10; hb 16:26 BP 136 / 82; Pulse 70; Resp 16; Pulse Ox 99% ; vg1 MDM: 13:46 Patient medically screened. [facility] 16:15 Data reviewed: vital signs, nurses notes. Counseling: I had a detailed discussion with ofelia the patient and/or guardian regarding: the historical points, exam findings, and any diagnostic results supporting the discharge/admit diagnosis, lab results, the need for outpatient follow up, to return to the emergency department if symptoms worsen or persist or if there are any questions or concerns that arise at home. ED course: Patient is alert and non toxic in appearance in the ED. No signs of resp distress. patient advised to follow up with pcp and otherwise given strict return precautions, patient understood and agrees with [facility] plan of care. . 10/13 13:54 Order name: Flu; Complete Time: 15:21 [facility] 10/13 13:54 Order name: Strep; Complete Time: 15:08 [facility] 10/13 15:08 Order name: Throat Culture [facility] 10/13 16:04 Order name: SARS-COV-2 RT PCR; Complete Time: 16:10 [facility] Administered Medications: No medications were administered Disposition: 10/13/20 16:16 Discharged to Home. Impression: Acute upper respiratory infection, unspecified. - Condition is Stable. - Discharge Instructions: Upper Respiratory Infection, Adult. - Prescriptions for Prednisone 20 mg Oral Tablet - take 3 tablet by ORAL route once daily for 5 days; 15 tablet. Albuterol Sulfate 90 mcg/actuation - inhale 1-2 puff by INHALATION route every 4-6 hours; 1 Inhaler. - Medication Reconciliation Form, Thank You Letter, Antibiotic Education, Prescription Opioid Use form. - Follow up: Private Physician; When: 2 - 3 days; Reason: Recheck today's complaints, Continuance of care, Re-evaluation by your physician. Signatures: Dispatcher [employer] [facility] Hamlet Tavares PA PA jmm Baxter, Heather, RN RN Indira Leal RN RN vg1 Corrections: (The following items were deleted from the chart) 14:47 13:55 CORONAVIRUS+MR.LAB.BRZ ordered. [facility] 16:27 16:16 10/13/2020 16:16 Discharged to Home. Impression: Acute upper respiratory vg1 infection, unspecified. Condition is Stable. Forms are Medication Reconciliation Form, Thank You Letter, Antibiotic Education, Prescription Opioid Use. Follow up: Private Physician; When: 2 - 3 days; Reason: Recheck today's complaints, Continuance of care, Re-evaluation by your physician. ofelia
[2020-10-13 16:32] VITALS: TEMP 97.6; O2SAT 99
[2020-10-13 16:33] VITALS: BP 136/82
== END 2020-10-13 16:27 | disposition home or self-care (01) ==
LOC: ER 13:08
DX: J06.9 Acute upper respiratory infection, unspecified (principal); Z20.822 Contact with and (suspected) exposure to COVID-19
CPT/HCPCS: 87070; 87081; 87804 ×2; U0003; 99283

== ENCOUNTER 2021-02-18 18:53 | Emergency (ER) | payer OTHER ==
--- NOTE | 2021-02-18 19:57 | ER ---
Nurse's Notes [facility] Name: Elle Man Age: 30 yrs Sex: Female : 1990 Arrival Date: 02/18/2021 Time: 18:55 Bed 9 Private MD: Diagnosis: Acute pharyngitis, unspecified Presentation: 02/18 19:12 Chief complaint: Patient states: painful swallowing, rt ear pain, fever 101 last night aa5 - took tylenol, body aches, headache, loss of appetite, not vax. Coronavirus screen: Vaccine status: Patient reports being unvaccinated. Ebola Screen: No symptoms or risks identified at this time. Initial Sepsis Screen: Does the patient meet any 2 criteria? No. Patient's initial sepsis screen is negative. Does the patient have a suspected source of infection? No. Patient's initial sepsis screen is negative. Risk Assessment: Do you want to hurt yourself or someone else? Patient reports no desire to harm self or others. Onset of symptoms was February 16, 2021. 19:12 Method Of Arrival: Ambulatory aa5 19:12 Acuity: LAYTON 4 aa5 Triage Assessment: 19:14 General: Appears in no apparent distress. Behavior is calm, cooperative, appropriate aa5 for age. Pain: Complains of pain in throat and rt ear. EENT: Reports difficulty swallowing since 02/16/21. 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 - Social history:: Smoking status: Patient denies any tobacco usage or history of. Patient/guardian denies using alcohol, street drugs. Screenin:32 Abuse screen: Denies threats or abuse. Nutritional screening: No deficits noted. vg1 Tuberculosis screening: No symptoms or risk factors identified. Fall Risk No fall in past 12 months (0 pts). No secondary diagnosis (0 pts). No IV (0 pts). Ambulatory Aid- None/Bed Rest/Nurse Assist (0 pts). Gait- Normal/Bed Rest/Wheelchair (0 pts) Mental Status- Oriented to own ability (0 pts). Total Archuleta Fall Scale indicates No Risk (0-24 pts). Assessment: 19:31 General: Appears in no apparent distress. uncomfortable, Behavior is calm, cooperative. vg1 Pain: Complains of pain in throat and Right ear Pain currently is 10 out of 10 on a pain scale. Neuro: Level of Consciousness is awake, alert, obeys commands, Oriented to person, place, time, situation. Cardiovascular: Patient's skin is warm and dry. Respiratory: Airway is patent Respiratory effort is even, unlabored, Breath sounds are clear bilaterally. GI: No signs and/or symptoms were reported involving the gastrointestinal system. : No signs and/or symptoms were reported regarding the genitourinary system. EENT: Ear canal clear on right ear Throat is reddened. Derm: Skin is intact, is healthy with good turgor. 20:06 Reassessment: Patient appears in no apparent distress at this time. No changes from vg1 previously documented assessment. Patient and/or family updated on plan of care and expected duration. Pain level reassessed. Patient is alert, oriented x 3, equal unlabored respirations, skin warm/dry/pink. Vital Signs: 19:12 BP 131 / 97; Pulse 98; Resp 17 S; Temp 98.3(O); Pulse Ox 99% on R/A; Weight 121.56 kg aa5 (R); Height 5 ft. 11 in. (180.34 cm) (R); Pain 9/10; 20:06 BP 126 / 87; Pulse 76; Resp 16; Pulse Ox 100% ; vg1 19:12 Body Mass Index 37.38 (121.56 kg, 180.34 cm) aa5 ED Course: 18:55 Patient arrived in ED. as 19:14 Triage completed. aa5 19:14 Arm band placed on. aa5 19:17 Indira Medina, RN is Primary Nurse. vg1 19:22 Hamlet Tavares PA is PHCP. [facility] 19:22 Jeanne Singh MD is Attending Physician. [facility] 19:31 Attending Physician role handed off by Jeanne Singh MD [facility] 19:31 Jonathan Oconnell MD is Attending Physician. [facility] 19:32 Patient has correct armband on for positive identification. Bed in low position. Call vg1 light in reach. 19:32 No provider procedures requiring assistance completed. Patient did not have IV access vg1 during this emergency room visit. 19:40 Strep swab sent to lab. vg1 Administered Medications: 19:38 Drug: Tylenol 650 mg Route: PO; vg1 20:07 Follow up: Response: No adverse reaction vg1 19:39 Drug: Decadron (dexamethasone) 10 mg Route: IM; Site: right deltoid; vg1 20:07 Follow up: Response: No adverse reaction vg1 Outcome: 19:56 Discharge ordered by MD. gilbert 20:06 Discharged to home ambulatory. vg1 20:06 Condition: stable 20:06 Discharge instructions given to patient, Instructed on discharge instructions, follow up and referral plans. medication usage, Demonstrated understanding of instructions, follow-up care, medications, Prescriptions given X 1. 20:07 Patient left the ED. vg1 Signatures: Jonathan Oconnell MD MD cha Mickail, Joel, PA PA jmm Martinez, Amelia as Calderon, Audri, RN RN aa5 Indira Medina, ISIDRO RN vg1
--- NOTE | 2021-02-18 19:57 | EDPHYS ---
Physician Documentation [facility] Name: Elle Man Age: 30 yrs Sex: Female : 1990 Arrival Date: 02/18/2021 Time: 18:55 Bed 9 Private MD: MOISES Physician Jonathan Oconnell HPI: 02/18 19:49 This 30 yrs old Female presents to ER via Ambulatory with complaints of Sore jmm Throat, Decreased Appetite. 19:49 The patient presents with sore throat. Onset: The symptoms/episode began/occurred jmm gradually. Modifying factors: The symptoms are alleviated by nothing, the symptoms are aggravated by nothing. Associated signs and symptoms: Pertinent positives: chills, fever. The patient has experienced similar episodes in the past. 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 - Social history:: Smoking status: Patient denies any tobacco usage or history of. Patient/guardian denies using alcohol, street drugs. ROS: 19:49 Constitutional: Negative for fever, chills, and weight loss, Cardiovascular: Negative jmm for chest pain, palpitations, and edema, Respiratory: Negative for shortness of breath, cough, wheezing, and pleuritic chest pain. 19:49 ENT: Positive for sore throat. 19:49 All other systems are negative. Exam: 19:49 Constitutional: This is a well developed, well nourished patient who is awake, alert, jmm and in no acute distress. Head/Face: atraumatic. Eyes: EOMI, no conjunctival erythema appreciated 19:49 Neck: Trachea midline, Supple Chest/axilla: Normal chest wall appearance and motion. Cardiovascular: Regular rate and rhythm. No edema appreciated Respiratory: Normal respirations, no respiratory distress appreciated Abdomen/GI: Non distended, soft Back: Normal ROM Skin: General appearance color normal MS/ Extremity: Moves all extremities, no obvious deformities appreciated, no edema noted to the lower extremities Neuro: Awake and alert, normal gait Psych: Behavior is normal, Mood is normal, Patient is cooperative and pleasant 19:49 ENT: Posterior pharynx: erythema, that is moderate. Vital Signs: 19:12 BP 131 / 97; Pulse 98; Resp 17 S; Temp 98.3(O); Pulse Ox 99% on R/A; Weight 121.56 kg aa5 (R); Height 5 ft. 11 in. (180.34 cm) (R); Pain 9/10; 20:06 BP 126 / 87; Pulse 76; Resp 16; Pulse Ox 100% ; vg1 19:12 Body Mass Index 37.38 (121.56 kg, 180.34 cm) aa5 MDM: 19:32 Patient medically screened. vicki 19:54 Data reviewed: vital signs, nurses notes. Counseling: I had a detailed discussion with ofelia the patient and/or guardian regarding: the historical points, exam findings, and any diagnostic results supporting the discharge/admit diagnosis, the need for outpatient follow up, to return to the emergency department if symptoms worsen or persist or if there are any questions or concerns that arise at home. 02/18 19:33 Order name: Strep [facility] Administered Medications: 19:38 Drug: Tylenol 650 mg Route: PO; vg1 20:07 Follow up: Response: No adverse reaction vg1 19:39 Drug: Decadron (dexamethasone) 10 mg Route: IM; Site: right deltoid; vg1 20:07 Follow up: Response: No adverse reaction vg1 Disposition: 02/19 08:44 Co-signature as Attending Physician, Jonathan Oconnell MD I agree with the assessment and [facility] plan of care. Disposition Summary: 02/18/21 19:56 Discharge Ordered Location: Home [facility] Condition: Stable [facility] Diagnosis - Acute pharyngitis, unspecified [facility] Followup: [facility] - With: Private Physician - When: 2 - 3 days - Reason: Recheck today's complaints, Continuance of care, Re-evaluation by your physician Discharge Instructions: - Discharge Summary Sheet [facility] - Pharyngitis [facility] Forms: - Medication Reconciliation Form [facility] - Thank You Letter [facility] - Antibiotic Education [facility] - Prescription Opioid Use [facility] Prescriptions: - Amoxicillin 875 mg Oral Tablet - take 1 tablet by ORAL route every 12 hours for 10 days; 20 tablet; Refills: 0, jmm Product Selection Permitted Signatures: Dispatcher [employer] Jonathan Newberry MD MD cha Mickail, Joel, PA PA jmm Calderon, Audri, RN RN aa5 Indira Medina RN RN vg1
[2021-02-18] MEDS ORDERED: dexAMETHasone 10 MG/ML VIAL ONE (20:02)
[2021-02-18] MEDS ORDERED: ACETAMINOPHEN 325 MG TABLET ONE (20:02)
[2021-02-18 20:12] VITALS: TEMP 98.3
[2021-02-18 20:14] VITALS: BP 126/87; O2SAT 100
== END 2021-02-18 20:07 | disposition home or self-care (01) ==
LOC: ER 18:53
DX: J02.9 Acute pharyngitis, unspecified (principal)
CPT/HCPCS: 87070; 87081; 96372; 99283; J1100

== ENCOUNTER 2021-04-15 21:45 | Emergency (ER) | payer OTHER ==
--- OUTSIDE RECORDS SUMMARY | 2021-04-15 21:54 | XMS REPORT | Continuity of Care Document ---
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 hours as needed (Pain). Take with food or milk. 2019-04 Yes [id number] 1{tbl} Take 1 [facility] vitamin 2-30 tablet by ity of w/FA tablet 00:00: mouth [place] 00 daily. Medical Branch docusate 2019-04 Yes [id number] 240mg Take 1 [facility] calcium 240 2-30 capsule by it y of mg capsule 00:00: mouth once [place] 00 daily as Medical needed for Branch Constipati on. ferrous 2019-04 Yes [id number] 325mg Take 1 [facility] in[facility] sulfate 325 2-30 tablet by ity of mg (65 mg 00:00: mouth 2 [place] iron) 00 (two) Medical tablet times Branch daily. ibuprofen 2019-04 Yes [id number] 600mg Take 1 [facility] 600 mg 2-30 tablet by ity of tablet 00:00: mouth [place] 00 every 6 Medical (six) Branch hours as needed (Pain). Take with food or milk. 2019-04 Yes [id number] 1{tbl} Take 1 [facility] vitamin 2-30 tablet by ity of w/FA tablet 00:00: mouth [place] 00 daily. Medical Branch docusate 2019-04 Yes [id number] 240mg Take 1 [facility] nivers calcium 240 2-30 capsule by it y of mg capsule 00:00: mouth once [place] 00 daily as Medical needed for Branch Constipati on. ferrous 2019-04 Yes [id number] 325mg Take 1 [facility] niés sulfate 325 2-30 tablet by ity of mg (65 mg 00:00: mouth 2 [place] iron) 00 (two) Medical tablet times Branch daily. ibuprofen 2019-04 Yes [id number] 600mg Take 1 [facility] 600 mg 2-30 tablet by ity of tablet 00:00: mouth [place] 00 every 6 Medical (six) Branch hours as needed (Pain). Take with food or milk. 2019-04 Yes [id number] 1{tbl} Take 1 [facility] vitamin 2-30 tablet by ity of w/FA tablet 00:00: mouth [place] 00 daily. Medical Branch docusate 2019-04 Yes [id number] 240mg Take 1 [facility] nivers calcium 240 2-30 capsule by it y of mg capsule 00:00: mouth once [place] 00 daily as Medical needed for Branch Constipati on. ferrous 2019-04 Yes [id number] 325mg Take 1 [facility] in[facility] sulfate 325 2-30 tablet by ity of mg (65 mg 00:00: mouth 2 [place] iron) 00 (two) Medical tablet times Branch daily. ibuprofen 2019-04 Yes [id number] 600mg Take 1 [facility] 600 mg 2-30 tablet by ity of tablet 00:00: mouth [place] 00 every 6 Medical (six) Branch hours as needed (Pain). Take with food or milk. 2019-04 Yes [id number] 1{tbl} Take 1 [facility] vitamin 2-30 tablet by ity of w/FA tablet 00:00: mouth [place] 00 daily. Medical Branch docusate 2019-04 Yes [id number] 240mg Take 1 [facility] n[facility] calcium 240 2-30 capsule by it y of mg capsule 00:00: mouth once [place] 00 daily as Medical needed for Branch Constipati on. ferrous 2019-04 Yes [id number] 325mg Take 1 [facility] in[facility] sulfate 325 2-30 tablet by ity of mg (65 mg 00:00: mouth 2 [place] iron) 00 (two) Medical tablet times Branch daily. ibuprofen 2019-04 Yes [id number] 600mg Take 1 [facility] 600 mg 2-30 tablet by ity of tablet 00:00: mouth [place] 00 every 6 Medical (six) Branch hours as needed (Pain). Take with food or milk. 2019-04 Yes [id number] 1{tbl} Take 1 [facility] vitamin 2-30 tablet by ity of w/FA tablet 00:00: mouth [place] 00 daily. Medical Branch docusate 2019-04 Yes [id number] 240mg Take 1 [facility] n[facility] calcium 240 2-30 capsule by it y of mg capsule 00:00: mouth once [place] 00 daily as Medical needed for Branch Constipati on. ferrous 2019-04 Yes [id number] 325mg Take 1 [facility] in[facility] sulfate 325 2-30 tablet by ity of mg (65 mg 00:00: mouth 2 [place] iron) 00 (two) Medical tablet times Branch daily. ibuprofen 2019-04 Yes [id number] 600mg Take 1 [facility] 600 mg 2-30 tablet by ity of tablet 00:00: mouth [place] 00 every 6 Medical (six) Branch hours as needed (Pain). Take with food or milk. 2019-04 Yes [id number] 1{tbl} Take 1 [facility] vitamin 2-30 tablet by ity of w/FA tablet 00:00: mouth [place] 00 daily. Medical Branch docusate 2019-04 Yes [id number] 240mg Take 1 [facility] nivers calcium 240 2-30 capsule by it y of mg capsule 00:00: mouth once [place] 00 daily as Medical needed for Branch Constipati on. ferrous 2019-04 Yes [id number] 325mg Take 1 [facility] in[facility] sulfate 325 2-30 tablet by ity of mg (65 mg 00:00: mouth 2 [place] iron) 00 (two) Medical tablet times Branch daily. ibuprofen 2019-04 Yes [id number] 600mg Take 1 [facility] 600 mg 2-30 tablet by ity of tablet 00:00: mouth [place] 00 every 6 Medical (six) Branch hours as needed (Pain). Take with food or milk. 2019-04 Yes [id number] 1{tbl} Take 1 [facility] vitamin 2-30 tablet by ity of w/FA tablet 00:00: mouth [place] 00 daily. Medical Branch docusate 2019-04 Yes [id number] 240mg Take 1 [facility] nivers calcium 240 2-30 capsule by it y of mg capsule 00:00: mouth once [place] 00 daily as Medical needed for Branch Constipati on. ferrous 2019-04 Yes [id number] 325mg Take 1 [facility] in[facility] sulfate 325 2-30 tablet by ity of mg (65 mg 00:00: mouth 2 [place] iron) 00 (two) Medical tablet times Branch daily. ibuprofen 2019-04 Yes [id number] 600mg Take 1 [facility] 600 mg 2-30 tablet by ity of tablet 00:00: mouth [place] 00 every 6 Medical (six) Branch hours as needed (Pain). Take with food or milk. 2019-04- No [id number] 1{tbl} Take 1 [facility] vitamin 2-30 -25 tablet by ity of w/FA tablet 00:00: 00:00 mouth [place] 00 :00 daily. Medical Branch docusate 2019-04- No [id number] 240mg Take 1 [facility] calcium 240 2-30 -25 capsule by i ty of mg capsule 00:00: 00:00 mouth once [place] 00 :00 daily as Medical needed for Branch Constipati on. ferrous 2019-04- No [id number] 325mg Take 1 [facility] nivers sulfate 325 2-30 -25 tablet by it y of mg (65 mg 00:00: 00:00 mouth 2 [place] iron) 00 :00 (two) Medical tablet times Branch daily. ibuprofen 2019-04- No [id number] 600mg Take 1 [facility] 600 mg 2-30 -25 tablet by ity of tablet 00:00: 00:00 mouth [place] 00 :00 every 6 Medical (six) Branch hours as needed (Pain). Take with food or milk. HYDROcodone 2019-04- No [id number] 1{tbl} Take 1 U nivers -acetaminop 2-30 -07 tablet by it y of hen 5-325 00:00: 05:59 mouth [place] mg tablet 00 :00 every 6 Medical (six) Branch hours as needed (Pain scale above 4) for up to 7 days. Do not exceed 3 grams of acetaminop hen in 24 hours. Indication s: acute pain 2019-04 Yes Take by [facility] rs 25/iron 1-25 mouth. ity of fum/folic/d 21:30: [place] 44 Medical (-1 Branch ORAL) 2019-04 Yes Take by [facility]ive rs 25/iron 1-25 mouth. ity of fum/folic/d 21:30: [place] 44 Medical (-1 Branch ORAL) 2019-04 Yes Take by [facility] rs 25/iron 1-25 mouth. ity of fum/folic/d 21:30: [place] 44 Medical (-1 Branch ORAL) 2019- Yes Take by [facility] rs 25/iron 1-25 mouth. ity of fum/folic/d 21:30: [place] [address] Medical (-1 Branch ORAL) 2020- Yes Take by Un[facility] rs 25/iron 1-25 mouth. ity of fum/folic/d 21:30: [place] [address] Medical (-1 Branch ORAL) 2020- Yes Take by [facility] rs 25/iron 1-25 mouth. ity of fum/folic/d 21:30: [place] [address] Medical (-1 Branch ORAL) 2020- Yes Take by [facility] rs 25/iron 1-25 mouth. ity of fum/folic/d 21:30: [place] [address] Medical (-1 Branch ORAL) 2020- Yes Take by [facility] rs 25/iron 1-25 mouth. ity of fum/folic/d 21:30: [place] [address] Medical (-1 Branch ORAL) 2020- Yes Take by [facility] rs 25/iron 1-25 mouth. ity of fum/folic/d 21:30: [place] [address] Medical (-1 Branch ORAL) 2020- Yes Take by [facility] rs 25/iron 1-25 mouth. ity of fum/folic/d 21:30: [place] [address] Medical (-1 Branch ORAL) 2020- Yes Take by [facility] rs 25/iron 1-25 mouth. ity of fum/folic/d 21:30: [place] [address] Medical (-1 Branch ORAL) PNV 2019-04 Yes [id number] Take 1 [facility] 102-iron-fo 0-20 TAB-CAP/M2 it y of late-dha 00:00: by mouth [place] (VITAFOL FE 00 daily. Medica l PLUS) 90 mg Branch iron- 1 mg-200 mg Cap PNV 2020 Yes [id number] Take 1 [facility] 102-iron-fo 0-20 TAB-CAP/M2 it y of late-dha 00:00: by mouth [place] (VITAFOL FE 00 daily. Medica l PLUS) 90 mg Branch iron- 1 mg-200 mg Cap PNV 2019-04 Yes [id number] Take 1 [facility] 102-iron-fo 0-20 TAB-CAP/M2 it y of late-dha 00:00: by mouth [place] (VITAFOL FE 00 daily. Medica l PLUS) 90 mg Branch iron- 1 mg-200 mg Cap PNV 2019-04 Yes [id number] Take 1 [facility] 102-iron-fo 0-20 TAB-CAP/M2 it y of late-dha 00:00: by mouth [place] (VITAFOL FE 00 daily. Medica l PLUS) 90 mg Branch iron- 1 mg-200 mg Cap PNV 2019-04 Yes [id number] Take 1 [facility] 102-iron-fo 0-20 TAB-CAP/M2 it y of late-dha 00:00: by mouth [place] (VITAFOL FE 00 daily. Medica l PLUS) 90 mg Branch iron- 1 mg-200 mg Cap PNV 2019-04 Yes [id number] Take 1 [facility] 102-iron-fo 0-20 TAB-CAP/M2 it y of late-dha 00:00: by mouth [place] (VITAFOL FE 00 daily. Medica l PLUS) 90 mg Branch iron- 1 mg-200 mg Cap PNV 2019-04 Yes [id number] Take 1 [facility] 102-iron-fo 0-20 TAB-CAP/M2 it y of late-dha 00:00: by mouth [place] (VITAFOL FE 00 daily. Medica l PLUS) 90 mg Branch iron- 1 mg-200 mg Cap PNV 2019-04 2020- No [id number] Take 1 [facility]iver s 102-iron-fo 0-20 11-25 TAB-CAP/M2 i ty of late-dha 00:00: 00:00 by mouth [place] (VITAFOL FE 00 :00 daily. Medica l PLUS) 90 mg Branch iron- 1 mg-200 mg Cap PNV 2019-04 2020- No [id number] Take 1 Univer s 102-iron-fo 0-20 11-25 TAB-CAP/M2 i ty of late-dha 00:00: 00:00 by mouth [place] (VITAFOL FE 00 :00 daily. Medica l PLUS) 90 mg Branch iron- 1 mg-200 mg Cap PNV 2019-04 2020- No [id number] Take 1 [facility]iver s 102-iron-fo 0-20 11-25 TAB-CAP/M2 i ty of late-dha 00:00: 00:00 by mouth [place] (VITAFOL FE 00 :00 daily. Medica l PLUS) 90 mg Branch iron- 1 mg-200 mg Cap metoclopram 2020-0 Yes [id number] 10mg Take 1 [facility] levi HCl 10 8-11 tablet by ity of mg tablet 00:00: mouth [place] 00 every 6 Medical (six) Branch hours as needed for Nausea and Vomiting (N/V). metoclopram 2020-0 Yes [id number] 10mg Take 1 [facility] levi HCl 10 8-11 tablet by ity of mg tablet 00:00: mouth [place] 00 every 6 Medical (six) Branch hours as needed for Nausea and Vomiting (N/V). metoclopram 2020-0 Yes [id number] 10mg Take 1 [facility] levi HCl 10 8-11 tablet by ity of mg tablet 00:00: mouth [place] 00 every 6 Medical (six) Branch hours as needed for Nausea and Vomiting (N/V). metoclopram 2020-0 Yes [id number] 10mg Take 1 [facility] levi HCl 10 8-11 tablet by ity of mg tablet 00:00: mouth [place] 00 every 6 Medical (six) Branch hours as needed for Nausea and Vomiting (N/V). metoclopram 2020-0 Yes [id number] 10mg Take 1 [facility] levi HCl 10 8-11 tablet by ity of mg tablet 00:00: mouth [place] 00 every 6 Medical (six) Branch hours as needed for Nausea and Vomiting (N/V). metoclopram 2020-0 Yes [id number] 10mg Take 1 [facility] levi HCl 10 8-11 tablet by ity of mg tablet 00:00: mouth [place] 00 every 6 Medical (six) Branch hours as needed for Nausea and Vomiting (N/V). metoclopram 2020-0 2020- No [id number] 10mg Take 1 [facility] levi HCl 10 8-11 10-20 tablet by ity of mg tablet 00:00: 00:00 mouth [place] 00 :00 every 6 Medical (six) Branch hours as needed for Nausea and Vomiting (N/V). metoclopram 2020-0 2019- No 10mg 10 mg, [facility] vers levi HCl 11-27- Slow IV ity of (REGLAN) 23:00: 21:59 Push, [place] injection 00 :00 ONCE, 1 Medical 10 mg dose, Mon Branch 11/28/19 at 1800, TUSHAR NaCl 0.9% 2019-2019- No 1000mL at 999 Uni vers (NS) bolus 8-03 08-04 mL/hr, ity of infusion 21:15: 00:22 1,000 mL, [place] 1,000 mL 00 :00 IV Medical Infusion, Branch ONCE, 1 dose, 11/28/19 at 1615, TUSHAR doxylamine- 2020-0 Yes [id number] Take 2 [facility] pyridoxine, 8-03 tabs by ity o f vit B6, 00:00: mouth qhs. [place] (DICLEGIS) 00 If nausea Medi dee 10-10 mg not Branch per tablet controlled may increase to max of 4 tabs daily-1 tab in am, 1 tab mid afternoon and 2 tabs qhs doxylamine- 2020-0 Yes [id number] Take 2 [facility] pyridoxine, 8-03 tabs by ity o f vit B6, 00:00: mouth qhs. [place] (DICLEGIS) 00 If nausea Medi dee 10-10 mg not Branch per tablet controlled may increase to max of 4 tabs daily-1 tab in am, 1 tab mid afternoon and 2 tabs qhs doxylamine- 2020-0 Yes [id number] Take 2 [facility] pyridoxine, 8-03 tabs by ity o f vit B6, 00:00: mouth qhs. [place] (DICLEGIS) 00 If nausea Medi dee 10-10 mg not Branch per tablet controlled may increase to max of 4 tabs daily-1 tab in am, 1 tab mid afternoon and 2 tabs qhs doxylamine- 2020-0 Yes [id number] Take 2 [facility] pyridoxine, 8-03 tabs by ity o f vit B6, 00:00: mouth qhs. [place] (DICLEGIS) 00 If nausea Medi dee 10-10 mg not Branch per tablet controlled may increase to max of 4 tabs daily-1 tab in am, 1 tab mid afternoon and 2 tabs qhs doxylamine- 2020-0 Yes [id number] Take 2 [facility] pyridoxine, 8-03 tabs by ity o f vit B6, 00:00: mouth q[facility]. [place] (DICLEGIS) 00 If nausea Medi dee 10-10 mg not Branch per tablet controlled may increase to max of 4 tabs daily-1 tab in am, 1 tab mid afternoon and 2 tabs qhs doxylamine- 2020-0 Yes [id number] Take 2 [facility] pyridoxine, 8-03 tabs by ity o f vit B6, 00:00: mouth q[facility]. [place] (DICLEGIS) 00 If nausea Medi dee 10-10 mg not Branch per tablet controlled may increase to max of 4 tabs daily-1 tab in am, 1 tab mid afternoon and 2 tabs qhs doxylamine- 2020-0 Yes [id number] Take 2 [facility] pyridoxine, 8-03 tabs by ity o f vit B6, 00:00: mouth q[facility]. [place] (DICLEGIS) 00 If nausea Medi dee 10-10 mg not Branch per tablet controlled may increase to max of 4 tabs daily-1 tab in am, 1 tab mid afternoon and 2 tabs qhs doxylamine- 2020-0 Yes [id number] Take 2 [facility] pyridoxine, 8-03 tabs by ity o f vit B6, 00:00: mouth qhs. [place] (DICLEGIS[place] 00 If nausea Medi dee 10-10 mg not Branch per tablet controlled may increase to max of 4 tabs daily-1 tab in am, 1 tab mid afternoon and 2 tabs qhs doxylamine- 2020-0 2020- No [id number] Take 2 [facility] pyridoxine, 8-03 10-20 tabs by ity of vit B6, 00:00: 00:00 mouth qhs. [place] (DICLEGIS) 00 :00 If nausea Medi dee 10-10 mg not Branch per tablet controlled may increase to max of 4 tabs daily-1 tab in am, 1 tab mid afternoon and 2 tabs qhs ampicillin 2020-0 2020- No [id number] 500mg Take 1 [facility] 500 mg 7-13 07-24 capsule by ity of capsule 00:00: 04:59 mouth 4 [place] 00 :00 (four) Medical times Branch daily for 10 days. ampicillin 2020-0 2020- No [id number] 500mg Take 1 [facility] 500 mg 7-13 07-24 capsule by ity of capsule 00:00: 04:59 mouth 4 [place] 00 :00 (four) Medical times Branch daily for 10 days. proMETHazin 2020-0 Yes [id number] 25mg Take 1 [facility] e 25 mg 7-09 tablet by ity of tablet 00:00: mouth [place] 00 every 6 Medical (six) Branch hours as needed for Nausea and Vomiting (N/V). proMETHazin 2020-0 Yes [id number] 25mg Take 1 [facility] e 25 mg 7-09 tablet by ity of tablet 00:00: mouth [place] 00 every 6 Medical (six) Branch hours as needed for Nausea and Vomiting (N/V). proMETHazin 2020-0 Yes [id number] 25mg Take 1 [facility] e 25 mg 7-09 tablet by ity of tablet 00:00: mouth [place] 00 every 6 Medical (six) Branch hours as needed for Nausea and Vomiting (N/V). proMETHazin 2020-0 Yes [id number] 25mg Take 1 [facility] e 25 mg 7-09 tablet by ity of tablet 00:00: mouth [place] 00 every 6 Medical (six) Branch hours as needed for Nausea and Vomiting (N/V). proMETHazin 2020-0 Yes [id number] 25mg Take 1 [facility] e 25 mg 7-09 tablet by ity of tablet 00:00: mouth [place] 00 every 6 Medical (six) Branch hours as needed for Nausea and Vomiting (N/V). proMETHazin 2020-0 Yes [id number] 25mg Take 1 [facility] e 25 mg 7-09 tablet by ity of tablet 00:00: mouth [place] 00 every 6 Medical (six) Branch hours as needed for Nausea and Vomiting (N/V). proMETHazin 2020-0 Yes [id number] 25mg Take 1 [facility] e 25 mg 7-09 tablet by ity of tablet 00:00: mouth [place] 00 every 6 Medical (six) Branch hours as needed for Nausea and Vomiting (N/V). proMETHazin 2020-0 Yes [id number] 25mg Take 1 [facility] e 25 mg 7-09 tablet by ity of tablet 00:00: mouth [place] 00 every 6 Medical (six) Branch hours as needed for Nausea and Vomiting (N/V). proMETHazin 2020-0 Yes [id number] 25mg Take 1 [facility] e 25 mg 7-09 tablet by ity of tablet 00:00: mouth [place] 00 every 6 Medical (six) Branch hours as needed for Nausea and Vomiting (N/V). proMETHazin 2020-0 Yes [id number] 25mg Take 1 [facility] e 25 mg 7-09 tablet by ity of tablet 00:00: mouth [place] 00 every 6 Medical (six) Branch hours as needed for Nausea and Vomiting (N/V). proMETHazin 2020-0 Yes [id number] 25mg Take 1 [facility] e 25 mg 7-09 tablet by ity of tablet 00:00: mouth [place] 00 every 6 Medical (six) Branch hours as needed for Nausea and Vomiting (N/V). proMETHazin 2020-0 Yes [id number] 25mg Take 1 [facility] e 25 mg 7-09 tablet by ity of tablet 00:00: mouth [place] 00 every 6 Medical (six) Branch hours as needed for Nausea and Vomiting (N/V). proMETHazin 2020-0 Yes [id number] 25mg Take 1 [facility] e 25 mg 7-09 tablet by ity of tablet 00:00: mouth [place] 00 every 6 Medical (six) Branch hours as needed for Nausea and Vomiting (N/V). proMETHazin 2020-0 Yes [id number] 25mg Take 1 [facility] e 25 mg 7-09 tablet by ity of tablet 00:00: mouth [place] 00 every 6 Medical (six) Branch hours as needed for Nausea and Vomiting (N/V). proMETHazin 2020-0 Yes [id number] 25mg Take 1 [facility] e 25 mg 7-09 tablet by ity of tablet 00:00: mouth [place] 00 every 6 Medical (six) Branch hours as needed for Nausea and Vomiting (N/V). proMETHazin 2020-0 Yes [id number] 25mg Take 1 [facility] e 25 mg 7-09 tablet by ity of tablet 00:00: mouth [place] 00 every 6 Medical (six) Branch hours as needed for Nausea and Vomiting (N/V). proMETHazin 2020-0 Yes [id number] 25mg Take 1 [facility] e 25 mg 7-09 tablet by ity of tablet 00:00: mouth [place] 00 every 6 Medical (six) Branch hours as needed for Nausea and Vomiting (N/V). proMETHazin 2020-0 2020- No [id number] 25mg Take 1 [facility] e 25 mg 7-09 10-20 tablet by ity of tablet 00:00: 00:00 mouth [place] 00 :00 every 6 Medical (six) Branch hours as needed for Nausea and Vomiting (N/V). Acyclovir Acyclovir Yes Hos[facility] [address] [facility] butalbital- 2017- Yes 1{tbl} Take 1 [facility] in[facility] acetaminoph 7-09 tablet by ity of en-caff 00:00: mouth [place] 50-325-40 00 every 4 Medical mg tablet (four) Branch hours as needed for Pain (scale 7-10) (Headache) . butalbital- 2017-0 Yes 1{tbl} Take 1 [facility] in[facility] acetaminoph 7-09 tablet by ity of en-caff 00:00: mouth [place] 50-325-40 00 every 4 Medical mg tablet (four) Branch hours as needed for Pain (scale 7-10) (Headache) . butalbital- 2017-0 Yes 1{tbl} Take 1 [facility] in[facility] acetaminoph 7-09 tablet by ity of en-caff 00:00: mouth [place] 50-325-40 00 every 4 Medical mg tablet (four) Branch hours as needed for Pain (scale 7-10) (Headache) . butalbital- 2017- Yes 1{tbl} Take 1 [facility] in[facility] acetaminoph 7-09 tablet by ity of en-caff 00:00: mouth [place] 50-325-40 00 every 4 Medical mg tablet (four) Branch hours as needed for Pain (scale 7-10) (Headache) . butalbital- 0 Yes 1{tbl} Take 1 [facility] in[facility] acetaminoph 7-09 tablet by ity of en-caff 00:00: mouth [place] 50-325-40 00 every 4 Medical mg tablet (four) Branch hours as needed for Pain (scale 7-10) (Headache) . butalbital- 2017-0 Yes 1{tbl} Take 1 [facility] in[facility] acetaminoph 7-09 tablet by ity of en-caff 00:00: mouth [place] 50-325-40 00 every 4 Medical mg tablet (four) Branch hours as needed for Pain (scale 7-10) (Headache) . butalbital- 2017-0 Yes 1{tbl} Take 1 [facility] in[facility] acetaminoph 7-09 tablet by ity of en-caff 00:00: mouth [place] 50-325-40 00 every 4 Medical mg tablet (four) Branch hours as needed for Pain (scale 7-10) (Headache) . butalbital- 2017-0 Yes 1{tbl} Take 1 [facility] in[facility] acetaminoph 7-09 tablet by ity of en-caff 00:00: mouth [place] 50-325-40 00 every 4 Medical mg tablet (four) Branch hours as needed for Pain (scale 7-10) (Headache) . butalbital- Yes 1{tbl} Take 1 [facility] in[facility] acetaminoph 7-09 tablet by ity of en-caff 00:00: mouth [place] 50-325-40 00 every 4 Medical mg tablet (four) Branch hours as needed for Pain (scale 7-10) (Headache) . butalbital- Yes 1{tbl} Take 1 [facility] in[facility] acetaminoph 7-09 tablet by ity of en-caff 00:00: mouth [place] 50-325-40 00 every 4 Medical mg tablet (four) Branch hours as needed for Pain (scale 7-10) (Headache) . butalbital- Yes 1{tbl} Take 1 [facility] in[facility] acetaminoph 7-09 tablet by ity of en-caff 00:00: mouth [place] 50-325-40 00 every 4 Medical mg tablet (four) Branch hours as needed for Pain (scale 7-10) (Headache) . butalbital Yes 1{tbl} Take 1 [facility] in[facility] acetaminoph 7-09 tablet by ity of en-caff 00:00: mouth [place] 50-325-40 00 every 4 Medical mg tablet (four) Branch hours as needed for Pain (scale 7-10) (Headache) . butalbital- Yes 1{tbl} Take 1 [facility] in[facility] acetaminoph 7-09 tablet by ity of en-caff 00:00: mouth [place] 50-325-40 00 every 4 Medical mg tablet (four) Branch hours as needed for Pain (scale 7-10) (Headache) . butalbital- Yes 1{tbl} Take 1 [facility] in[facility] acetaminoph 7-09 tablet by ity of en-caff 00:00: mouth [place] 50-325-40 00 every 4 Medical mg tablet (four) Branch hours as needed for Pain (scale 7-10) (Headache) . butalbital- Yes 1{tbl} Take 1 [facility] in[facility] acetaminoph 7-09 tablet by ity of en-caff 00:00: mouth [place] 50-325-40 00 every 4 Medical mg tablet (four) Branch hours as needed for Pain (scale 7-10) (Headache) . butalbital- 2018-0 Yes 1{tbl} Take 1 [facility] in[facility] acetaminoph 7-09 tablet by ity of en-caff 00:00: mouth [place] 50-325-40 00 every 4 Medical mg tablet (four) Branch hours as needed for Pain (scale 7-10) (Headache) . butalbital- 2018-0 Yes 1{tbl} Take 1 [facility] in[facility] acetaminoph 7-09 tablet by ity of en-caff 00:00: mouth [place] 50-325-40 00 every 4 Medical mg tablet (four) Branch hours as needed for Pain (scale 7-10) (Headache) . butalbital- 2018- 2020- No 1{tbl} Take 1 U nivers acetaminoph 7-09 10-20 tablet by it y of en-caff 00:00: 00:00 mouth [place] 50-325-40 00 :00 every 4 Medical mg tablet (four) Branch hours as needed for Pain (scale 7-10) (Headache) . amoxicillin 2018-0 Yes 500mg Take 1 [facility] 500 mg 3-25 capsule by ity of capsule 00:00: mouth (three) Medical times Branch daily. naproxen 2018-0 Yes 500mg Take 1 [facility] s 500 mg 3-25 tablet by ity of tablet 00:00: mouth 2 (two) Medical times Branch daily with meals. amoxicillin 2018-0 Yes 500mg Take 1 [facility] 500 mg 3-25 capsule by ity of capsule 00:00: mouth (three) Medical times Branch daily. naproxen 2018-0 Yes 500mg Take 1 [facility] s 500 mg 3-25 tablet by ity of tablet 00:00: mouth 2 (two) Medical times Branch daily with meals. amoxicillin 2018-0 Yes 500mg Take 1 [facility] 500 mg 3-25 capsule by ity of capsule 00:00: mouth 3 (three) Medical times Branch daily. naproxen 2018-0 Yes 500mg Take 1 [facility] s 500 mg 3-25 tablet by ity of tablet 00:00: mouth 2 (two) Medical times Branch daily with meals. amoxicillin 2018-0 Yes 500mg Take 1 [facility] 500 mg 3-25 capsule by ity of capsule 00:00: mouth (three) Medical times Branch daily. naproxen 2018-0 Yes 500mg Take 1 [facility] s 500 mg 3-25 tablet by ity of tablet 00:00: mouth (two) Medical times Branch daily with meals. amoxicillin 2018-0 Yes 500mg Take 1 [facility] 500 mg 3-25 capsule by ity of capsule 00:00: mouth (three) Medical times Branch daily. naproxen 2018-0 Yes 500mg Take 1 [facility] s 500 mg 3-25 tablet by ity of tablet 00:00: mouth (two) Medical times Branch daily with meals. amoxicillin 2018-0 Yes 500mg Take 1 [facility] 500 mg 3-25 capsule by ity of capsule 00:00: mouth (three) Medical times Branch daily. naproxen 2018-0 Yes 500mg Take 1 [facility] s 500 mg 3-25 tablet by ity of tablet 00:00: mouth (two) Medical times Branch daily with meals. amoxicillin 2018-0 Yes 500mg Take 1 [facility] 500 mg 3-25 capsule by ity of capsule 00:00: mouth (three) Medical times Branch daily. naproxen 2018-0 Yes 500mg Take 1 [facility] s 500 mg 3-25 tablet by ity of tablet 00:00: mouth (two) Medical times Branch daily with meals. amoxicillin 2018-0 Yes 500mg Take 1 [facility] 500 mg 3-25 capsule by ity of capsule 00:00: mouth (three) Medical times Branch daily. naproxen 2018-0 Yes 500mg Take 1 [facility] s 500 mg 3-25 tablet by ity of tablet 00:00: mouth (two) Medical times Branch daily with meals. amoxicillin 2018-0 Yes 500mg Take 1 [facility] 500 mg 3-25 capsule by ity of capsule 00:00: mouth (three) Medical times Branch daily. naproxen 2018-0 Yes 500mg Take 1 [facility] s 500 mg 3-25 tablet by ity of tablet 00:00: mouth 2 (two) Medical times Branch daily with meals. amoxicillin 2018-0 Yes 500mg Take 1 [facility] 500 mg 3-25 capsule by ity of capsule 00:00: mouth (three) Medical times Branch daily. naproxen 2018-0 Yes 500mg Take 1 [facility] s 500 mg 3-25 tablet by ity of tablet 00:00: mouth (two) Medical times Branch daily with meals. amoxicillin 2018-0 Yes 500mg Take 1 [facility] 500 mg 3-25 capsule by ity of capsule 00:00: mouth 3 (three) Medical times Branch daily. naproxen 2018-0 Yes 500mg Take 1 [facility] s 500 mg 3-25 tablet by ity of tablet 00:00: mouth 2 (two) Medical times Branch daily with meals. amoxicillin 2018-0 Yes 500mg Take 1 [facility] vers 500 mg 3-25 capsule by ity of capsule 00:00: mouth (three) Medical times Branch daily. naproxen 2018-0 Yes 500mg Take 1 Univer s 500 mg 3-25 tablet by ity of tablet 00:00: mouth (two) Medical times Branch daily with meals. amoxicillin 2018-0 Yes 500mg Take 1 Uni vers 500 mg 3-25 capsule by ity of capsule 00:00: mouth (three) Medical times Branch daily. naproxen 2018-0 Yes 500mg Take 1 Univer s 500 mg 3-25 tablet by ity of tablet 00:00: mouth (two) Medical times Branch daily with meals. amoxicillin 2018-0 Yes 500mg Take 1 Uni vers 500 mg 3-25 capsule by ity of capsule 00:00: mouth (three) Medical times Branch daily. naproxen 2018-0 Yes 500mg Take 1 Univer s 500 mg 3-25 tablet by ity of tablet 00:00: mouth (two) Medical times Branch daily with meals. amoxicillin 2018-0 Yes 500mg Take 1 Uni vers 500 mg 3-25 capsule by ity of capsule 00:00: mouth (three) Medical times Branch daily. naproxen 2018-0 Yes 500mg Take 1 Univer s 500 mg 3-25 tablet by ity of tablet 00:00: mouth 2 (two) Medical times Branch daily with meals. amoxicillin 2018-0 Yes 500mg Take 1 [facility] vers 500 mg 3-25 capsule by ity of capsule 00:00: mouth (three) Medical times Branch daily. naproxen 2018-0 Yes 500mg Take 1 Univer s 500 mg 3-25 tablet by ity of tablet 00:00: mouth 2 00 (two) Medical times Branch daily with meals. amoxicillin 2017-0 Yes 500mg Take 1 Uni vers 500 mg 3-25 capsule by ity of capsule 00:00: mouth 3 [place] 00 (three) Medical times Branch daily. naproxen 2018-0 Yes 500mg Take 1 Univer s 500 mg 3-25 tablet by ity of tablet 00:00: mouth 2 00 (two) Medical times Branch daily with meals. amoxicillin 2017-0 2020- No 500mg Take 1 Un inés 500 mg 3-25 10-20 capsule by ity of capsule 00:00: 00:00 mouth 3 [place] 00 :00 (three) Medical times Branch daily. naproxen 2018-0 2020- No 500mg Take 1 Unive rs 500 mg 3-25 10-20 tablet by ity of tablet 00:00: 00:00 mouth 2 [place] 00 :00 (two) Medical times Branch daily with meals. medroxyPROG 2016-0 Yes 150mg 1 mL by Un inés ESTERone 7-19 [facility] ity o f (DEPO-PROVE 00:00: lar route [place] RA) 150 00 every 3 Medical mg/mL (three) Branch syringe months. medroxyPROG 2016-0 Yes 150mg 1 mL by Un inés ESTERone 7-19 [facility] ity o f (DEPO-PROVE 00:00: lar route [place] RA) 150 00 every 3 Medical mg/mL (three) Branch syringe months. medroxyPROG 2016-0 Yes 150mg 1 mL by Un inés ESTERone 7-19 [facility] ity o f (DEPO-PROVE 00:00: lar route [place] RA) 150 00 every 3 Medical mg/mL (three) Branch syringe months. medroxyPROG 2016-0 Yes 150mg 1 mL by Un inés ESTERone 7-19 [facility] ity o f (DEPO-PROVE 00:00: lar route [place] RA) 150 00 every 3 Medical mg/mL (three) Branch syringe months. medroxyPROG 2016-0 Yes 150mg 1 mL by Un inés ESTERone 7-19 [facility] ity o f (DEPO-PROVE 00:00: lar route [place] RA) 150 00 every 3 Medical mg/mL (three) Branch syringe months. medroxyPROG 2016-0 Yes 150mg 1 mL by Un inés [facility]ERone 7-19 [facility] ity o f (DEPO-PROVE 00:00: lar route [place] RA) 150 00 every 3 Medical mg/mL (three) Branch syringe months. medroxyPROG 2016-0 Yes 150mg 1 mL by Un inés ESTERone 7-19 [facility] ity o f (DEPO-PROVE 00:00: lar route [place] RA) 150 00 every 3 Medical mg/mL (three) Branch syringe months. medroxyPROG 2016-0 Yes 150mg 1 mL by Un inés ESTERone 7-19 [facility] ity o f (DEPO-PROVE 00:00: lar route [place] RA) 150 00 every 3 Medical mg/mL (three) Branch syringe months. medroxyPROG 2016-0 Yes 150mg 1 mL by Un inés [facility]ERone 7-19 [facility] ity o f (DEPO-PROVE 00:00: lar route [place] RA) 150 00 every 3 Medical mg/mL (three) Branch syringe months. medroxyPROG 2016-0 Yes 150mg 1 mL by Un inés ESTERone 7-19 [facility] ity o f (DEPO-PROVE 00:00: lar route [place] RA) 150 00 every 3 Medical mg/mL (three) Branch syringe months. medroxyPROG 2016-0 Yes 150mg 1 mL by Un inés [facility]ERone 7-19 [facility] ity o f (DEPO-PROVE 00:00: lar route [place] RA) 150 00 every 3 Medical mg/mL (three) Branch syringe months. medroxyPROG 2016-0 Yes 150mg 1 mL by Un inés [facility]ERone 7-19 [facility] ity o f (DEPO-PROVE 00:00: lar route [place] RA) 150 00 every 3 Medical mg/mL (three) Branch syringe months. medroxyPROG 2016-0 Yes 150mg 1 mL by Un in[facility]ERone 7-19 [facility] ity o f (DEPO-PROVE 00:00: lar route [place] RA) 150 00 every 3 Medical mg/mL (three) Branch syringe months. medroxyPROG 2016-0 Yes 150mg 1 mL by Un inés [facility]ERone 7-19 [facility] ity o f (DEPO-PROVE 00:00: lar route [place] RA) 150 00 every 3 Medical mg/mL (three) Branch syringe months. medroxyPROG 2015- Yes 150mg 1 mL by Un inés [facility]ERone 7-19 [facility] ity o f (DEPO-PROVE 00:00: lar route [place] RA) 150 00 every 3 Medical mg/mL (three) Branch syringe months. medroxyPROG 2015- Yes 150mg 1 mL by Un inés ESTERone 7-19 [facility] ity o f (DEPO-PROVE 00:00: lar route [place] RA) 150 00 every 3 Medical mg/mL (three) Branch syringe months. medroxyPROG 2015- Yes 150mg 1 mL by Un inés [facility]ERone 7-19 [facility] ity o f (DEPO-PROVE 00:00: lar route [place] RA) 150 00 every 3 Medical mg/mL (three) Branch syringe months. medroxyPROG 2015- 2020- No 150mg 1 mL by U nivers ESTERone 7-19 10-20 [facility] ity of (DEPO-PROVE 00:00: 00:00 lar route [place] RA) 150 00 :00 every 3 Medical mg/mL (three) Branch syringe months. PNV 2014-04 Yes 1{tbl} Take 1 Tab Unive rs no.81-iron 0-01 by mouth ity o f cbn&gluc-FA 00:00: [place]. [place] -DSS 00 Medical (CITRANATAL Branch , DUAL-IRON,) 27 mg iron-1 mg -50 mg Tab PNV 2014-04 Yes 1{tbl} Take 1 Tab Unive rs no.81-iron 0-01 by mouth ity o f cbn&gluc-FA 00:00: daily. [place] -DSS 00 Medical (CITRANATAL Branch , DUAL-IRON,) 27 mg iron-1 mg -50 mg Tab PNV 2014-04 Yes 1{tbl} Take 1 Tab Unive rs no.81-iron 0-01 by mouth ity o f cbn&gluc-FA 00:00: daily. [place] -DSS 00 Medical (CITRANATAL Branch , DUAL-IRON,) 27 mg iron-1 mg -50 mg Tab PNV 2014-04 Yes 1{tbl} Take 1 Tab Unive rs no.81-iron 0-01 by mouth ity o f cbn&gluc-FA 00:00: daily. [place] -DSS 00 Medical (CITRANATAL Branch , DUAL-IRON,) 27 mg iron-1 mg -50 mg Tab PNV 2014-04 Yes 1{tbl} Take 1 Tab Unive rs no.81-iron 0-01 by mouth ity o f cbn&gluc-FA 00:00: daily. [place] -DSS 00 Medical (CITRANATAL Branch , DUAL-IRON,) 27 mg iron-1 mg -50 mg Tab PNV 2014-04 Yes 1{tbl} Take 1 Tab Unive rs no.81-iron 0-01 by mouth ity o f cbn&gluc-FA 00:00: daily. [place] -DSS 00 Medical (CITRANATAL Branch , DUAL-IRON,) 27 mg iron-1 mg -50 mg Tab PNV 2014-04 Yes 1{tbl} Take 1 Tab Unive rs no.81-iron 0-01 by mouth ity o f cbn&gluc-FA 00:00: daily. [place] -DSS 00 Medical (CITRANATAL Branch , DUAL-IRON,) 27 mg iron-1 mg -50 mg Tab PNV 2014-04 Yes 1{tbl} Take 1 Tab Unive rs no.81-iron 0-01 by mouth ity o f cbn&gluc-FA 00:00: daily. [place] -DSS 00 Medical (CITRANATAL Branch , DUAL-IRON,) 27 mg iron-1 mg -50 mg Tab PNV 2014-04 Yes 1{tbl} Take 1 Tab Unive rs no.81-iron 0-01 by mouth ity o f cbn&gluc-FA 00:00: daily. [place] -DSS 00 Medical (CITRANATAL Branch , DUAL-IRON,) 27 mg iron-1 mg -50 mg Tab PNV 2014-04 Yes 1{tbl} Take 1 Tab Unive rs no.81-iron 0-01 by mouth ity o f cbn&gluc-FA 00:00: daily. [place] -DSS 00 Medical (CITRANATAL Branch , DUAL-IRON,) 27 mg iron-1 mg -50 mg Tab PNV 2014-04 Yes 1{tbl} Take 1 Tab Unive rs no.81-iron 0-01 by mouth ity o f cbn&gluc-FA 00:00: daily. [place] -DSS 00 Medical (CITRANATAL Branch , DUAL-IRON,) 27 mg iron-1 mg -50 mg Tab PNV 2014-04 Yes 1{tbl} Take 1 Tab Unive rs no.81-iron 0-01 by mouth ity o f cbn&gluc-FA 00:00: daily. [place] -DSS 00 Medical (CITRANATAL Branch , DUAL-IRON,) 27 mg iron-1 mg -50 mg Tab PNV 2014-04 Yes 1{tbl} Take 1 Tab Unive rs no.81-iron 0-01 by mouth ity o f cbn&gluc-FA 00:00: daily. [place] -DSS 00 Medical (CITRANATAL Branch , DUAL-IRON,) 27 mg iron-1 mg -50 mg Tab PNV 2014-04 Yes 1{tbl} Take 1 Tab Unive rs no.81-iron 0-01 by mouth ity o f cbn&gluc-FA 00:00: daily. [place] -DSS 00 Medical (CITRANATAL Branch , DUAL-IRON,) 27 mg iron-1 mg -50 mg Tab PNV 2014-04 Yes 1{tbl} Take 1 Tab Unive rs no.81-iron 0-01 by mouth ity o f cbn&gluc-FA 00:00: daily. [place] -DSS 00 Medical (CITRANATAL Branch , DUAL-IRON,) 27 mg iron-1 mg -50 mg Tab PNV 2014-04 Yes 1{tbl} Take 1 Tab Unive rs no.81-iron 0-01 by mouth ity o f cbn&gluc-FA 00:00: daily. [place] -DSS 00 Medical (CITRANATAL Branch , DUAL-IRON,) 27 mg iron-1 mg -50 mg Tab PNV 2014-04 Yes 1{tbl} Take 1 Tab Unive rs no.81-iron 0-01 by mouth ity o f cbn&gluc-FA 00:00: daily. [place] -DSS 00 Medical (CITRANATAL Branch , DUAL-IRON,) 27 mg iron-1 mg -50 mg Tab PNV 2014-04 Yes 1{tbl} Take 1 Tab Unive rs no.81-iron 0-01 by mouth ity o f cbn&gluc-FA 00:00: daily. [place] -DSS 00 Medical (CITRANATAL Branch , DUAL-IRON,) 27 mg iron-1 mg -50 mg Tab PNV 2014-04 Yes 1{tbl} Take 1 Tab Unive rs no.81-iron 0-01 by mouth ity o f cbn&gluc-FA 00:00: daily. [place] -DSS 00 Medical (CITRANATAL Branch , DUAL-IRON,) 27 mg iron-1 mg -50 mg Tab PNV 2014-04 Yes 1{tbl} Take 1 Tab Unive rs no.81-iron 0-01 by mouth ity o f cbn&gluc-FA 00:00: daily. [place] -DSS 00 Medical (CITRANATAL Branch , DUAL-IRON,) 27 mg iron-1 mg -50 mg Tab PNV 2014-04 Yes 1{tbl} Take 1 Tab Unive rs no.81-iron 0-01 by mouth ity o f cbn&gluc-FA 00:00: daily. [place] -DSS 00 Medical (CITRANATAL Branch , DUAL-IRON,) 27 mg iron-1 mg -50 mg Tab PNV 2014-04 Yes 1{tbl} Take 1 Tab Unive rs no.81-iron 0-01 by mouth ity o f cbn&gluc-FA 00:00: daily. [place] -DSS 00 Medical (CITRANATAL Branch , DUAL-IRON,) 27 mg iron-1 mg -50 mg Tab PNV 2014-04 Yes 1{tbl} Take 1 Tab Unive rs no.81-iron 0-01 by mouth ity o f cbn&gluc-FA 00:00: daily. [place] -DSS 00 Medical (CITRANATAL Branch , DUAL-IRON,) 27 mg iron-1 mg -50 mg Tab PNV 2014-04 Yes 1{tbl} Take 1 Tab Unive rs no.81-iron 0-01 by mouth ity o f cbn&gluc-FA 00:00: daily. [place] -DSS 00 Medical (CITRANATAL Branch , DUAL-IRON,) 27 mg iron-1 mg -50 mg Tab PNV 2015-1 2020- No 1{tbl} Take 1 Tab Univ ers no.81-iron 0- 11-25 by mouth ity of cbn&gluc-FA 00:00: 00:00 daily. [place] -DSS 00 :00 Medical (CITRANATAL Branch , DUAL-IRON,) 27 mg iron-1 mg -50 mg Tab PNV 2014-04 2020- No 1{tbl} Take 1 Tab Univ ers no.81-iron 0- 11-25 by mouth ity of cbn&gluc-FA 00:00: 00:00 daily. [place] -DSS 00 :00 Medical (CITRANATAL Branch , DUAL-IRON,) 27 mg iron-1 mg -50 mg Tab PNV 2014-04 2020- No 1{tbl} Take 1 Tab Univ ers no.81-iron 0- 11-25 by mouth ity of cbn&gluc-FA 00:00: 00:00 daily. [place] -DSS 00 :00 Medical (CITRANATAL Branch , DUAL-IRON,) 27 mg iron-1 mg -50 mg Tab No known No Univers medications ity of [facility] Immunizations Ordered Filled Immunization Date Status Comments [facility] Immunization Name Name TDAP 2020-02-14 Completed University of 00:00:00 [facility] Influenza Virus 2020-02-14 Completed Universit y of Vaccine Quad .5 mL 00:00:00 [facility] 6+ MO Branch TDAP 2020-02-14 Completed University of 00:00:00 [facility] Influenza Virus 2020-02-14 Completed Universit y of Vaccine Quad .5 mL 00:00:00 [facility] 6+ MO Branch TDAP 2020-02-14 Completed University of 00:00:00 [facility] Influenza Virus 2020-02-14 Completed Universit y of Vaccine Quad .5 mL 00:00:00 [facility] 6+ MO Branch TDAP 2020-02-14 Completed University of 00:00:00 [facility] Influenza Virus 2020-02-14 Completed Universit y of Vaccine Quad .5 mL 00:00:00 [facility] 6+ MO Branch TDAP 2020-02-14 Completed University of 00:00:00 [facility] Influenza Virus 2020-02-14 Completed Universit y of Vaccine Quad .5 mL 00:00:00 [facility] 6+ MO Branch TDAP 2020-02-14 Completed University of 00:00:00 [facility] Influenza Virus 2020-02-14 Completed Universit y of Vaccine Quad .5 mL 00:00:00 [place] [facility] 6+ MO Branch TDAP 2020-02-14 Completed University of 00:00:00 [facility] [place] Influenza Virus 2020-02-14 Completed Universit y of Vaccine Quad .5 mL 00:00:00 [place] [facility] IM 6+ MO Branch TDAP 2020-02-14 Completed University of 00:00:00 [facility] [place] [facility] [place] Influenza Virus 2020-02-14 Completed Universit y of Vaccine Quad .5 mL 00:00:00 [place] [facility] IM 6+ MO Branch TDAP 2020-02-14 Completed University of 00:00:00 [facility] [place] [facility] [place] Influenza Virus 2020-02-14 Completed Universit y of Vaccine Quad .5 mL 00:00:00 [place] [facility] 6+ MO Branch TDAP 2020-02-14 Completed University of 00:00:00 [place] [facility] [place] Influenza Virus 2020-02-14 Completed Universit y of Vaccine Quad .5 mL 00:00:00 [place] [facility] 6+ MO Branch TDAP 2020-02-14 Completed University of 00:00:00 [facility] Influenza Virus 2020-02-14 Completed Universit y of Vaccine Quad .5 mL 00:00:00 [place] [facility] 6+ MO Branch TDAP 2020-02-14 Completed University of 00:00:00 [facility] [place] [facility] [place] Influenza Virus 2020-02-14 Completed Universit y of Vaccine Quad .5 mL 00:00:00 [place] [facility] 6+ MO Branch TDAP 2020-02-14 Completed University of 00:00:00 [place] [facility] [place] Influenza Virus 2020-02-14 Completed Universit y of Vaccine Quad .5 mL 00:00:00 [place] [facility] 6+ MO Branch TDAP 2020-02-14 Completed University of 00:00:00 [place] [facility] [place] Influenza Virus 2020-02-14 Completed Universit y of Vaccine Quad .5 mL 00:00:00 [place] [facility] 6+ MO Branch TDAP 2020-02-14 Completed University of 00:00:00 [place] [facility] [place] Influenza Virus 2020-02-14 Completed Universit y of Vaccine Quad .5 mL 00:00:00 [place] [facility] 6+ MO Branch TDAP 2020-02-14 Completed University of 00:00:00 [place] [facility] [place] Influenza Virus 2020-02-14 Completed Universit y of Vaccine Quad .5 mL 00:00:00 [facility] 6+ MO Branch TDAP 2020-02-14 Completed University of 00:00:00 [facility] Influenza Virus 2020-02-14 Completed Universit y of Vaccine Quad .5 mL 00:00:00 [place] [facility] 6+ MO Branch TDAP 2020-02-14 Completed University of 00:00:00 [facility] Influenza Virus 2020-02-14 Completed Universit y of Vaccine Quad .5 mL 00:00:00 [facility] 6+ MO Branch TDAP 2020-02-14 Completed University of 00:00:00 [facility] Influenza Virus 2020-02-14 Completed Universit y of Vaccine Quad .5 mL 00:00:00 [place] [facility] 6+ MO Branch TDAP 2020-02-14 Completed University of 00:00:00 [facility] Influenza Virus 2020-02-14 Completed Universit y of Vaccine Quad .5 mL 00:00:00 [facility] 6+ MO Branch TDAP 2020-02-14 Completed University of 00:00:00 [facility] Influenza Virus 2020-02-14 Completed Universit y of Vaccine Quad .5 mL 00:00:00 [facility] 6+ MO [place] TDAP 2020-02-14 Completed University of 00:00:00 [facility] Influenza Virus 2020-02-14 Completed Universit y of Vaccine Quad .5 mL 00:00:00 [facility] 6+ MO [place] TDAP 2020-02-14 Completed University of 00:00:00 [facility] Influenza Virus 2020-02-14 Completed Universit y of Vaccine Quad .5 mL 00:00:00 [facility] 6+ MO [place] TDAP 2020-02-14 Completed University of 00:00:00 [facility] Influenza Virus 2020-02-14 Completed Universit y of Vaccine Quad .5 mL 00:00:00 [facility] 6+ MO Branch TDAP 2020-02-14 Completed University of 00:00:00 [facility] Influenza Virus 2020-02-14 Completed Universit y of Vaccine Quad .5 mL 00:00:00 [place] [facility] 6+ MO Branch TDAP 2020-02-14 Completed University of 00:00:00 [facility] Influenza Virus 2020-02-14 Completed Universit y of Vaccine Quad .5 mL 00:00:00 [place] [facility] 6+ MO Branch TDAP 2020-02-14 Completed University of 00:00:00 [facility] Influenza Virus 2020-02-14 Completed Universit y of Vaccine Quad .5 mL 00:00:00 [place] [facility] IM 6+ MO Branch TDAP 2020-02-14 Completed University of 00:00:00 [place] [facility] Influenza Virus 2020-02-14 Completed Universit y of Vaccine Quad .5 mL 00:00:00 [place] [facility] IM 6+ MO Branch TDAP 2020-02-14 Completed University of 00:00:00 [place] [facility] [place] Influenza Virus 2020-02-14 Completed Universit y of Vaccine Quad .5 mL 00:00:00 [place] [facility] IM 6+ MO Branch TDAP 2020-02-14 Completed University of 00:00:00 [place] [facility] [place] Influenza Virus 2020-02-14 Completed Universit y of Vaccine Quad .5 mL 00:00:00 [place] [facility] IM 6+ MO Branch TDAP 2020-02-14 Completed University of 00:00:00 [facility] Influenza Virus 2020-02-14 Completed Universit y of Vaccine Quad .5 mL 00:00:00 [place] [facility] IM 6+ MO Branch TDAP 2020-02-14 Completed University of 00:00:00 [facility] [place] [facility] [place] Influenza Virus 2020-02-14 Completed Universit y of Vaccine Quad .5 mL 00:00:00 [place] [facility] 6+ MO Branch TDAP 2020-02-14 Completed University of 00:00:00 [facility] [place] [facility] [place] Influenza Virus 2020-02-14 Completed Universit y of Vaccine Quad .5 mL 00:00:00 [place] [facility] 6+ MO Branch TDAP 2020-02-14 Completed University of 00:00:00 [facility] Influenza Virus 2020-02-14 Completed Universit y of Vaccine Quad .5 mL 00:00:00 [place] [facility] IM 6+ MO Branch TDAP 2020-02-14 Completed University of 00:00:00 [facility] Influenza Virus 2020-02-14 Completed Universit y of Vaccine Quad .5 mL 00:00:00 [place] [facility] IM 6+ MO Branch TDAP 2020-02-14 Completed University of 00:00:00 [place] [facility] [place] Influenza Virus 2020-02-14 Completed Universit y of Vaccine Quad .5 mL 00:00:00 [place] [facility] IM 6+ MO Branch Influenza Virus 2015-02-01 Completed Universit y of Vaccine Quad IM 3+ 00:00:00 [facility] Influenza Virus 2015-02-01 Completed Universit y of Vaccine Quad IM 3+ 00:00:00 [facility] Influenza Virus 2015-02-01 Completed Universit y of Vaccine Quad IM 3+ 00:00:00 [facility] Influenza Virus 2015-02-01 Completed Universit y of Vaccine Quad IM 3+ 00:00:00 [facility] Influenza Virus 2015-02-01 Completed Universit y of Vaccine Quad IM 3+ 00:00:00 [facility] Influenza Virus 2015-02-01 Completed Universit y of Vaccine Quad IM 3+ 00:00:00 [facility] Influenza Virus 2015-02-01 Completed Universit y of Vaccine Quad IM 3+ 00:00:00 [facility] Influenza Virus 2015-02-01 Completed Universit y of Vaccine Quad IM 3+ 00:00:00 [facility] Influenza Virus 2015-02-01 Completed Universit y of Vaccine Quad IM 3+ 00:00:00 [facility] Influenza Virus 2015-02-01 Completed Universit y of Vaccine Quad IM 3+ 00:00:00 [facility] Influenza Virus 2015-02-01 Completed Universit y of Vaccine Quad IM 3+ 00:00:00 [facility] Influenza Virus 2015-02-01 Completed Universit y of Vaccine Quad IM 3+ 00:00:00 [facility] Influenza Virus 2015-02-01 Completed Universit y of Vaccine Quad IM 3+ 00:00:00 [facility] Influenza Virus 2015-02-01 Completed Universit y of Vaccine Quad IM 3+ 00:00:00 [facility] Influenza Virus 2015-02-01 Completed Universit y of Vaccine Quad IM 3+ 00:00:00 [facility] Influenza Virus 2015-02-01 Completed Universit y of Vaccine Quad IM 3+ 00:00:00 [facility] Influenza Virus 2015-02-01 Completed Universit y of Vaccine Quad IM 3+ 00:00:00 [facility] Influenza Virus 2015-02-01 Completed Universit y of Vaccine Quad IM 3+ 00:00:00 [facility] Influenza Virus 2015-02-01 Completed Universit y of Vaccine Quad IM 3+ 00:00:00 [facility] Influenza Virus 2015-02-01 Completed Universit y of Vaccine Quad IM 3+ 00:00:00 [facility] Influenza Virus 2015-02-01 Completed Universit y of Vaccine Quad IM 3+ 00:00:00 [facility] Influenza Virus 2015-02-01 Completed Universit y of Vaccine Quad IM 3+ 00:00:00 [facility] Influenza Virus 2015-02-01 Completed Universit y of Vaccine Quad IM 3+ 00:00:00 [facility] Influenza Virus 2015-02-01 Completed Universit y of Vaccine Quad IM 3+ 00:00:00 [facility] Influenza Virus 2015-02-01 Completed Universit y of Vaccine Quad IM 3+ 00:00:00 [facility] Influenza Virus 2015-02-01 Completed Universit y of Vaccine Quad IM 3+ 00:00:00 [facility] Influenza Virus 2015-02-01 Completed Universit y of Vaccine Quad IM 3+ 00:00:00 [facility] Influenza Virus 2015-02-01 Completed Universit y of Vaccine Quad IM 3+ 00:00:00 [facility] Influenza Virus 2015-02-01 Completed Universit y of Vaccine Quad IM 3+ 00:00:00 [facility] Influenza Virus 2015-02-01 Completed Universit y of Vaccine Quad IM 3+ 00:00:00 [facility] Influenza Virus 2015-02-01 Completed Universit y of Vaccine Quad IM 3+ 00:00:00 [facility] Influenza Virus 2015-02-01 Completed Universit y of Vaccine Quad IM 3+ 00:00:00 [facility] Influenza Virus 2015-02-01 Completed Universit y of Vaccine Quad IM 3+ 00:00:00 [facility] Influenza Virus 2015-02-01 Completed Universit y of Vaccine Quad IM 3+ 00:00:00 [facility] Influenza Virus 2015-02-01 Completed Universit y of Vaccine Quad IM 3+ 00:00:00 [facility] Influenza Virus 2015-02-01 Completed Universit y of Vaccine Quad IM 3+ 00:00:00 [facility] Influenza Virus 2015-02-01 Completed Universit y of Vaccine Quad IM 3+ 00:00:00 [facility] Influenza Virus 2015-02-01 Completed Universit y of Vaccine Quad IM 3+ 00:00:00 [facility] Influenza Virus 2015-02-01 Completed Universit y of Vaccine Quad IM 3+ 00:00:00 [facility] Influenza Virus 2015-02-01 Completed Universit y of Vaccine Quad IM 3+ 00:00:00 [facility] Influenza Virus 2015-02-01 Completed Universit y of Vaccine Quad IM 3+ 00:00:00 [facility] Influenza Virus 2015-02-01 Completed Universit y of Vaccine Quad IM 3+ 00:00:00 [facility] Influenza Virus 2015-02-01 Completed Universit y of Vaccine Quad IM 3+ 00:00:00 [facility] Influenza Virus 2015-02-01 Completed Universit y of Vaccine Quad IM 3+ 00:00:00 [facility] Influenza Virus 2015-02-01 Completed Universit y of Vaccine Quad IM 3+ 00:00:00 [facility] Influenza Virus 2015-02-01 Completed Universit y of Vaccine Quad IM 3+ 00:00:00 [facility] Influenza Virus 2015-02-01 Completed Universit y of Vaccine Quad IM 3+ 00:00:00 [facility] Influenza Virus 2015-02-01 Completed Universit y of Vaccine Quad IM 3+ 00:00:00 [facility] Influenza Virus 2015-02-01 Completed Universit y of Vaccine Quad IM 3+ 00:00:00 [facility] Influenza Virus 2015-02-01 Completed Universit y of Vaccine Quad IM 3+ 00[facility]00:00 [facility] [facility] Influenza Virus 2015-02-01 Completed [facility]it y [facility] 3+ 00:00:00 [facility] Influenza Virus 2015-02-01 Completed [facility]it [facility] IM 3+ 00:00:00 [facility] Influenza Virus 2015-02-01 Completed [facility]it y of Vaccine [facility] IM 3+ 00:00:00 [facility] Vital Signs Vital Name Observation Time Observation Value Comments Source Systolic blood 2020-08-13 13:47:00 121 mm[Hg] Univer sity of pressure [facility] Diastolic blood 2020-08-13 13:47:00 70 mm[Hg] Unive rsity of pressure [facility] Heart rate 2020-08-13 13:47:00 71 /min [facility] Body temperature 2020-08-13 13:47:00 36.67 Jasmin [facility] Res[facility] rate 2020-08-13 13:47:00 18 /min [facility] Body height 2020-08-13 13:47:00 180.3 cm [facility] Body weight 2020-08-13 13:47:00 124.286 kg [facility] BMI 2020-08-13 13:47:00 38.22 kg/m2 Universi ty of [facility] Systolic blood 2020-08-13 13:47:00 121 mm[Hg] Univer sity of pressure [facility] Diastolic blood 2020-08-13 13:47:00 70 mm[Hg] Unive rsity of pressure [facility] Heart rate 2020-08-13 13:47:00 71 /min Universi ty of [facility] Body temperature 2020-08-13 13:47:00 36.67 Jasmin Univ ersity of [facility] Respiratory rate 2020-08-13 13:47:00 18 /min Univ ersity of [facility] Body height 2020-08-13 13:47:00 180.3 cm Universi ty of [facility] Body weight 2020-08-13 13:47:00 124.286 kg Universi ty of [facility] BMI 2020-08-13 13:47:00 38.22 kg/m2 Universi ty of [facility] Systolic blood 2020-07-19 15:56:00 116 mm[Hg] Univer sity of pressure [facility] Diastolic blood 2020-07-19 15:56:00 69 mm[Hg] Unive rsity of pressure [facility] Heart rate 2020-07-19 15:56:00 73 /min [facility]i ty [facility] [place] Body temperature 2020-07-19 15:56:00 36.44 Jasmin Univ ersity of [facility] Respiratory rate 2020-07-19 15:56:00 16 /min Univ ersity of [facility] Oxygen saturation in 2020-07-19 15:56:00 99 /min University Arterial blood by [facility] Pulse oximetry Branch Body weight 2020-07-19 08:45:00 126.554 kg Universi ty of [facility] BMI 2020-07-19 08:45:00 38.93 kg/m2 [facility]i ty of [facility] Body height 2020-07-18 16:47:00 180.3 cm Universi ty of [facility] Systolic blood 2020-07-10 08:00:00 120 mm[Hg] Univer sity of pressure [facility] Diastolic blood 2020-07-10 08:00:00 78 mm[Hg] Unive rsity of pressure [facility] Heart rate 2020-07-10 08:00:00 66 /min Universi ty of [facility] Respiratory rate 2020-07-10 08:00:00 18 /min Univ ersity of [facility] Oxygen saturation in 2020-07-10 08:00:00 96 /min University of Arterial blood by [place] [employer] Pulse oximetry Branch Body temperature 2020-07-10 05:53:00 36.56 Jasmin Univ ersity of [facility] Body weight 2020-07-10 05:53:00 122.925 kg [facility]i ty [facility] BMI 2020-07-10 05:53:00 37.80 kg/m2 Universi ty [facility] Heart rate 2020-06-08 04:18:00 59 /min Universi ty of [facility] Oxygen saturation in 2020-06-08 04:18:00 98 /min University of Arterial blood by [place] [employer] Pulse oximetry Branch Systolic blood 2020-06-08 04:00:00 140 mm[Hg] Univer sity of pressure [facility] Diastolic blood 2020-06-08 04:00:00 93 mm[Hg] Unive rsity of pressure [facility] Respiratory rate 2020-06-08 04:00:00 19 /min Univ ersity of [facility] Body temperature 2020-06-08 03:42:00 36.72 Jasmin Univ ersity of [facility] Body weight 2020-06-08 03:42:00 122.925 kg [facility]i [facility] of [facility] BMI 2020-06-08 03:42:00 37.80 kg/m2 [facility] Systolic blood 2020-05-24 22:55:00 122 mm[Hg] Univer sity of pressure [facility] Diastolic blood 2020-05-24 22:55:00 81 mm[Hg] Unive rsity of pressure [facility] Heart rate 2020-05-24 22:55:00 64 /min Universi ty of [facility] Body temperature 2020-05-24 22:55:00 36.61 Jasmin Univ ersity of [facility] Body height 2020-05-24 22:55:00 180.3 cm [facility]i [facility] Body weight 2020-05-24 22:55:00 124.286 kg [facility]i [facility] BMI 2020-05-24 22:55:00 38.22 kg/m2 [facility]i [facility] Systolic blood 2020-05-18 10:00:00 122 mm[Hg] Univer sity of pressure [facility] Diastolic blood 2020-05-18 10:00:00 75 mm[Hg] Unive rsity of pressure [facility] Heart rate 2020-05-18 10:00:00 66 /min Universi ty of [facility] Respiratory rate 2020-05-18 10:00:00 14 /min Univ ersity of [facility] Oxygen saturation in 2020-05-18 10:00:00 99 /min University Arterial blood by [facility] Pulse oximetry Branch Body temperature 2020-05-18 07:07:00 36.22 Jasmin Univ ersity of [facility] Body weight 2020-05-18 07:07:00 122.471 kg [facility]i ty of [facility] [place] BMI 2020-05-18 07:07:00 37.66 kg/m2 Universi ty of [facility] Systolic blood 2020-05-02 20:24:00 125 mm[Hg] Univer sity of pressure [facility] Diastolic blood 2020-05-02 20:24:00 89 mm[Hg] Unive rsity of pressure [facility] Heart rate 2020-05-02 20:24:00 61 /min Universi ty of [facility] Body temperature 2020-05-02 20:24:00 37 Jasmin Univ ersity of [facility] Respiratory rate 2020-05-02 20:24:00 18 /min Univ ersity of [facility] [place] Body weight 2020-05-02 20:24:00 125.646 kg Universi ty of [facility] BMI 2020-05-02 20:24:00 38.63 kg/m2 [facility]i ty of [facility] Systolic blood 2020-04-18 17:55:00 121 mm[Hg] Univer sity of pressure [facility] Diastolic blood 2020-04-18 17:55:00 74 mm[Hg] Unive rsity of pressure [facility] Heart rate 2020-04-18 17:55:00 78 /min Universi ty of [facility] Respiratory rate 2020-04-18 17:55:00 20 /min Univ ersity of [facility] Body height 2020-04-18 17:55:00 180.3 cm [facility]i ty of [facility] Body weight 2020-04-18 17:55:00 134.174 kg [facility]i ty of [facility] BMI 2020-04-18 17:55:00 41.26 kg/m2 [facility]i ty of [facility] Systolic blood 2020-04-16 21:27:00 118 mm[Hg] Univer sity of pressure [facility] Diastolic blood 2020-04-16 21:27:00 71 mm[Hg] Unive rsity of pressure [facility] Heart rate 2020-04-16 21:27:00 80 /min Universi ty of [facility] Body temperature 2020-04-16 21:27:00 36.33 Jasmin Univ ersity of [facility] Respiratory rate 2020-04-16 21:27:00 16 /min Univ ersity of [facility] Body height 2020-04-16 21:27:00 180.3 cm Universi ty of [facility] Body weight 2020-04-16 21:27:00 134.99 kg Universi ty of [facility] BMI 2020-04-16 21:27:00 41.51 kg/m2 [facility]i ty of [facility] Systolic blood 2020-04-12 21:38:00 123 mm[Hg] Univer sity of pressure [facility] Diastolic blood 2020-04-12 21:38:00 80 mm[Hg] Unive rsity of pressure [facility] Heart rate 2020-04-12 21:38:00 89 /min Universi ty of [facility] Body temperature 2020-04-12 21:38:00 36.83 Jasmin Univ ersity of [facility] Respiratory rate 2020-04-12 21:38:00 18 /min Univ ersity of [facility] Body height 2020-04-12 21:38:00 180.3 cm [facility]i ty [facility] Body weight 2020-04-12 21:38:00 135.081 kg [facility]i [facility] BMI 2020-04-12 21:38:00 41.53 kg/m2 [facility] ty [facility] Systolic blood 2020-03-29 21:46:00 95 mm[Hg] Univer sity of pressure [facility] Diastolic blood 2020-03-29 21:46:00 55 mm[Hg] Unive rsity of pressure [facility] Heart rate 2020-03-29 21:46:00 83 /min Universi ty of [facility] Body temperature 2020-03-29 21:46:00 36.94 Jasmin Univ ersity of [facility] Respiratory rate 2020-03-29 21:46:00 18 /min Univ ersity of [facility] Body height 2020-03-29 21:46:00 180.3 cm [facility]i ty of [facility] Body weight 2020-03-29 21:46:00 134.265 kg [facility]i ty of [facility] BMI 2020-03-29 21:46:00 41.28 kg/m2 [facility] Systolic blood 2020-03-21 21:28:00 105 mm[Hg] Univer sity of pressure [facility] Diastolic blood 2020-03-21 21:28:00 71 mm[Hg] Unive rsity of pressure [facility] Heart rate 2020-03-21 21:28:00 83 /min Universi ty of [facility] Body temperature 2020-03-21 21:28:00 36.67 Jasmin Univ ersity of [facility] Respiratory rate 2020-03-21 21:28:00 16 /min Univ ersity of [facility] Body height 2020-03-21 21:28:00 180.3 cm [facility]i ty [facility] Body weight 2020-03-21 21:28:00 133.085 kg [facility]i ty of [facility] BMI 2020-03-21 21:28:00 40.92 kg/m2 [facility]i ty of [facility] Systolic blood 2020-03-14 18:01:00 112 mm[Hg] Univer sity of pressure [facility] Diastolic blood 2020-03-14 18:01:00 71 mm[Hg] Unive rsity of pressure [facility] Heart rate 2020-03-14 18:01:00 73 /min Universi ty of [facility] Body temperature 2020-03-14 18:01:00 36.5 Jasmin Univ ersity of [facility] Respiratory rate 2020-03-14 18:01:00 18 /min Univ ersity of [facility] Body height 2020-03-14 18:01:00 180.3 cm [facility]i ty of [facility] Body weight 2020-03-14 18:01:00 132.904 kg Universi ty of [facility] BMI 2020-03-14 18:01:00 40.87 kg/m2 Universi ty of [facility] Systolic blood 2020-02-14 16:18:00 110 mm[Hg] Univer sity of pressure [facility] Diastolic blood 2020-02-14 16:18:00 73 mm[Hg] Unive rsity of pressure [facility] Heart rate 2020-02-14 16:18:00 79 /min Universi ty of [facility] Body temperature 2020-02-14 16:18:00 36.94 Jasmin Univ ersity of [facility] Respiratory rate 2020-02-14 16:18:00 18 /min Univ ersity of [facility] Body height 2020-02-14 16:18:00 175.3 cm Universi ty of [facility] Body weight 2020-02-14 16:18:00 128.822 kg Universi ty of [facility] BMI 2020-02-14 16:18:00 41.94 kg/m2 Universi ty of [facility] Systolic blood 2019-12-06 16:20:00 126 mm[Hg] Univer sity of pressure [facility] Diastolic blood 2019-12-06 16:20:00 80 mm[Hg] Unive rsity of pressure [facility] Heart rate 2019-12-06 16:20:00 99 /min Universi ty of [facility] Body temperature 2019-12-06 16:20:00 37.17 Jasmin Univ ersity of [facility] Respiratory rate 2019-12-06 16:20:00 18 /min Univ ersity of [facility] Body height 2019-12-06 16:20:00 180.3 cm [facility]i ty [facility] Body weight 2019-12-06 16:20:00 124.286 kg [facility]i ty [facility] BMI 2019-12-06 16:20:00 38.22 kg/m2 Universi ty of [facility] Systolic blood 2019-11-28 23:20:00 136 mm[Hg] Univer sity of pressure [facility] Diastolic blood 2019-11-28 23:20:00 76 mm[Hg] Unive rsity of pressure [facility] Heart rate 2019-11-28 23:20:00 81 /min Universi ty of [facility] Respiratory rate 2019-11-28 23:20:00 18 /min Univ ersity of [facility] Oxygen saturation in 2019-11-28 23:20:00 95 /min [facility] Arterial blood by [facility] Pulse oximetry Branch Body temperature 2019-11-28 20:43:00 37.28 Jasmin [facility] Body height 2019-11-28 20:43:00 180.3 cm Universi ty of [facility] [place] [facility] [place] Body weight 2019-11-28 20:43:00 122.471 kg Universi ty of [facility] BMI 2019-11-28 20:43:00 37.66 kg/m2 Universi ty of [facility] Systolic blood 2019-11-03 14:20:00 134 mm[Hg] Univer sity of pressure [facility] Diastolic blood 2019-11-03 14:20:00 82 mm[Hg] [facility] Heart rate 2019-11-03 14:20:00 92 /min Universi ty of [facility] Body temperature 2019-11-03 14:20:00 36.67 Jasmin [facility] Respiratory rate 2019-11-03 14:20:00 16 /min [facility] Body height 2019-11-03 14:20:00 180.3 cm Universi ty of [facility] Body weight 2019-11-03 14:20:00 125.363 kg Universi ty of [facility] BMI 2019-11-03 14:20:00 38.55 kg/m2 Universi ty [facility] Procedures Procedure Date / Time Performing Clinician Source Performed FL TIME OR 2020-07-18 20:03:05 Belén Crespo [facility] (NON-REPORTABLE) Medical Branch LAPAROSCOPIC 2020-07-18 17:51:00 Belén Crespo [facility] CHOLECYSTECTOMY Medical Branch US ABDOMEN LIMITED 2020-07-18 13:22:57 Belén Crespo [facility] COVID-19 (ID NOW RAPID 2020-07-18 12:13:00 Roshan West [facility] TESTING) Medical [place] CT ABDOMEN PELVIS W 2020-07-18 11:51:38 Roshan West [facility] CONTRAST [facility] POCT TEST 2020-07-18 11:36:00 Roshan West [facility] LIPASE 2020-07-18 11:26:00 West, [facility] BILI UNCONJUGATED/BILI 2020-07-18 11:26:00 Singer Roshan [facility] COMP. METABOLIC PANEL 2020-07-18 11:26:00 Roshan West [facility] ([id number]) Medical Branch CBC WITH DIFF 2020-07-18 11:26:00 Singer [facility] URINALYSIS 2020-07-18 11:26:00 Singer [facility] CONSENT/REFUSAL FOR 2020-07-18 11:10:36 Doctor [facility]once [facility] DIAGNOSIS AND TREATMENT [place] Medical [place] CT ABDOMEN PELVIS W 2020-07-10 07:05:30 Matthias Bedolla [facility] CONTR[facility] Medical Branch LIPASE 2020-07-10 06:16:00 Matthias Bedolla [facility] COMP. METABOLIC PANEL 2020-07-10 06:16:00 Matthias Bedolla [facility] ([id number]) Medical Branch CBC WITH DIFF 2020-07-10 06:16:00 Matthias Bedolla [facility] URINALYSIS 2020-07-10 06:16:00 Matthias Bedolla [facility] POCT TEST 2020-07-10 06:00:00 Matthias Bedolla [facility] [place] NOTICE OF PRIVACY 2020-07-10 05:38:40 Doctor Kris [facility] PRACTICES [place] [facility] CONSENT/REFUSAL FOR 2020-07-10 05:38:26 Doctor Ponce [facility] DIAGNOSIS AND TREATMENT [place] [facility] [place] NOTICE OF PRIVACY 2020-06-08 03:37:21 Doctor Kris [facility] PRACTICES [place] [facility] CONSENT/REFUSAL FOR 2020-06-08 03:37:05 Doctor Kris [facility] DIAGNOSIS AND TREATMENT [place] [facility] CONSENT/REFUSAL FOR 2020-06-08 03:37:02 Doctor Kris [facility] DIAGNOSIS AND TREATMENT [place] [facility] [place] POCT TEST 2020-05-24 00:00:00 Ladonna Leyva [facility] CT CHEST PULMONARY 2020-05-18 08:55:26 Ekta Morse [facility] ANGIOGRAM Medical Branch LIPASE 2020-05-18 07:51:00 Ekta Morse [facility] TROPONIN I 2020-05-18 07:51:00 Ekta Morse [facility] HEPATIC FUNCTION PANEL 2020-05-18 07:51:00 Ekta Morse [facility] ([id number]) (ALB,T.PRO,BILI Medical Branch T,BU/BC,ALT,AST,ALK PHOS) BASIC METABOLIC PANEL (NA, 2020-05-18 07:51:00 Ekta Morse [facility] K, CL, CO2, GLUCOSE, BUN, Medica l Branch CREATININE, CA) CBC WITH DIFF 2020-05-18 07:51:00 Ekta Morse [facility] NOTICE OF PRIVACY 2020-05-18 07:05:35 Doctor Unaelkin, [facility] PRACTICES [place] [facility] CONSENT/REFUSAL FOR 2020-05-18 07:04:19 Doctor Unassrichie, [facility]REFUSAL FOR 2020-05-18 07:04:14 Doctor Unaformerly [facility], [facility] DIAGNOSIS [facility] BIOPHYSICAL PROFILE 2020-04-18 18:32:22 Rishi Singh [facility] NON-STRESS TEST 2020-04-17 01:03:44 Ladonna Lyeva [facility] POCT URINALYSIS W/O 2020-04-16 00:00:00 Ladonna Leyva [facility] SPECIFIC GRAVITY [facility] NON-STRESS TEST 2020-04-13 01:37:29 Ladonna Leyva [facility] NON-STRESS TEST 2020-03-29 22:00:32 Darnell Ruy [facility] NON-STRESS TEST 2020-03-21 22:08:58 Ruy Patrick [facility] NON-STRESS TEST 2020-03-21 22:06:45 Ladonna Leyva [facility] SECOND AND THIRD TRIMESTER 2020-03-09 19:49:00 Leyva[facility] SECOND AND THIRD TRIMESTER 2020-03-01 19:32:00 Leyva, Ladonna [facility] [place] ULTR[facility]OUND [facility] Branch FLU VACC ([id number]), 6+ 2020-02-14 17:05:03 Ladonna Leyva Uni [facility] MONTHS, IM, QUAD Medical Branch TDAP VACCINE, >11 YRS, IM 2020-02-14 16:44:57 Leyva Ladonna Cam [facility] [place] [facility] [place] SECOND AND THIRD TRIMESTER 2020-01-05 21:19:00 Leyva, Ladonna Cam [facility] [place] ULTRASOUND Medical Branch SECOND AND THIRD TRIMESTER 2020-01-05 20:51:00 Leyva, Ladonna Cam [facility] [place] ULTRASOUND Medical Branch SECOND AND THIRD TRIMESTER 2020-01-05 20:44:00 Gordon Ladonna Cam [facility] [place] ULTR[facility]OUND [facility] CONSENT TO CONTACT FOR 2019-12-06 16:09:25 Doctor Unassigned, [facility] VOLUNTARY RESEARCH [place] [facility] 2019-11-28 23:13:00 Matthias Bedolla [facility] COMP. METABOLIC PANEL 2019-11-28 21:47:00 Matthias Bedolla [facility] ([id number]) [facility] CBC WITH DIFF 2019-11-28 21:47:00 Matthias Bedolla [facility] NOTICE OF PRIVACY 2019-11-28 20:29:30 Doctor Unaelkin, [facility] PRACTICES [place] [facility] CONSENT/REFUSAL FOR 2019-11-28 20:29:18 Doctor Kris, [facility] DIAGNOSIS AND TREATMENT [place] [facility] [place] POCT URINALYSIS W/O 2019-11-03 14:11:00 Kelsey Wall [facility] [place] SPECIFIC GRAVITY [facility] POCT TEST 2019-11-03 14:10:00 Kelsey Wall Uni [facility] Hospital Encounters Start End Encounter Admission Attending Care Care Encounter Source Date/Time Date/Time Type Type Clinicians Facility Department ID 2021-02-24 Emergency [facility] [id number] Univers 08:03[facility] 2021-02-24 Emergency [facility] [id number] Univers 06:12:16 ity of [facility] 2021-02-23 Emergency [facility] [id number] Univers 23:13:52 ity of [facility] 2021-02-23 Emergency [facility] [id number] Univers 18:44:48 ity of [facility] 2021-02-23 Emergency [facility] [id number] Univers 14:23:[address] [facility] 2020-08-14 2020-08-14 Outpatient R ZAK [facility] [id number] Univers 14:30:00 14:30:00 EBLÉN [id number] [facility] 2020-08-13 2020-08-13 [facility] [id number] 08:41:30 09:13:07 Visit Belén Murillo [id number] [place] [id number] Professio [id number] [address] 2020-08-13 2020-08-13 Office [facility] [id number] Univers 08:41:30 09:13:07 Visit Belén Murillo [id number] i ty of [id number] [id number] Nd dical [address] 2020-08-13 2020-08-13 Outpatient Nikos CRESPO [facility] [id number] Univers 08:45:00 08:45:[id number] [facility] 2020-08-13 2020-08-13 Outpatient R ZAK [facility] [id number] Univers 08:45:00 08:45:[address] [facility] 2020-08-02 2020-08-02 Outpatient Nikos DENNEY [facility] [id number] Univers 10:00:00 10:00:00 LORE [id number] ity o f [facility] 2020-08-02 2020-08-02 Outpatient Nikos DENNEY [facility] [id number] Univers 10:00:00 10:00:00 LORE becerril o f [facility] 2020-07-18 2020-07-19 Emergency Roshan West [facility] [id number] Univers 06:12:00 11:15:00 Michael Agarwal [id number] ity of [place] [id number] [facility] [phone] [facility] 081 Branch 2020-07-17 2020-07-17 [facility] [id number] Univers 00:00:00 00:00:00 Outreach Jonny PRIMARY [id number] i ty of [facility] [id number] [facility] [phone] Nd dical [address] [place] 2020-07-10 2020-07-10 Emergency [facility] [id number] Univers 00:45:00 03:37:00 Matthias Murillo [id number] i ty of [place] [id number] [facility] [phone] [facility] 084 Branch 2020-07-10 2020-07-10 Orders Doctor LAURY [id number] Univers 00:00:00 00:00:00 Only Unassigned, JONE [id number] ity of [place] [facility] [id number] Kostas [phone] [facility] 009 Branch 2020-06-21 2020-06-21 Outpatient Nikos PATRICK [facility] [id number] Univers 13:00:00 13:00:[id number] [facility] 2020-06-21 2020-06-21 Outpatient Nikos PATRICK [facility] [id number] Univers 13:00:00 13:00:[address] [facility] 2020-06-16 2020-06-16 [facility] [id number] Univers 00:00:00 00:00:00 Ruy Murillo [id number] i ty [id number] [phone] Nd dical nal 134 [facility] 2020-06-11 2020-06-11 Outpatient R [facility] [id number] Univers 13:00:00 13:00:[id number] [facility] 2020-06-11 2020-06-11 Outpatient R [facility] [id number] Univers 13:00:00 13:00:[address] [facility] 2020-06-07 2020-06-07 [facility] Center 1.2.327.119 [id number] Univers 21:44:00 23:54:00 Marissabasilio Murillo 350.1.13.10 i ty of [place] [phone] [address] 2020-05-25 2020-05-25 Outpatient [facility] [id number] -[id number] Univers 15:30:00 15:30:00 [id number] [facility] 2020-05-24 2020-05-24 [facility] 1.2.084.808 [id number] Univers 16:32:42 17:20:48 Ruy Murillo 350.1.13.10 ity of Visit [place] [phone] Nd dical nal [address] [place] [address] 2020-05-24 2020-05-24 Outpatient R LADONNA LEYVA [facility] [id number] Univers 14:15:00 14:15:[id number] [facility] 2020-05-24 2020-05-24 Outpatient R GORDON LADONNA [facility] [id number] Univers 14:15:00 14:15:[address] [facility] 2020-05-22 2020-05-22 [facility] [id number] -[id number] Univers 16:30:00 16:30:[id number] [facility] 2020-05-22 2020-05-22 Out[facility] [id number] Univers 16:30:00 16:30:00 JOSHUA [facility] 2020-05-18 2020-05-18 Outpatient [facility] [id number] -[id number] Univers 15:30:00 15:30:00 [id number] [facility] 2020-05-18 2020-05-18 Emergency [facility] 1.2.840.114 [id number] Univers 01:25:00 04:52:00 Ekta Murillo 350.1.13.10 ity alba [place] 4.2.7.2.686 [facility] [phone] [address] 2020-05-15 2020-05-15 [facility] [id number] Univers 11:00:00 11:00:00 RUY [id number] [facility] 2020-05-15 2020-05-15 [facility] [id number] Univers 11:00:00 11:00:00 RUY [facility] 2020-05-11 2020-05-11 Outpatient [facility] [id number] -[id number] Univers 15:30:00 15:30:[id number] [facility] 2020-05-10 2020-05-10 Outpatient [facility] [id number] -[id number] Univers 15:00:00 15:00:00 [id number] [facility] 2020-05-07 2020-05-07 Outpatient [facility] [id number] -[id number] Univers 15:00:00 15:00:[id number] [facility] 2020-05-04 2020-05-04 Outpatient [facility] [id number] -[id number] Univers 15:30:00 15:30:[id number] [facility] 2020-05-03 2020-05-03 Outpatient [facility] [id number] -[id number] Univers 15:00:00 15:00:00 [id number] [facility] 2020-05-02 2020-05-02 Nurse Nurse, [facility] 1.2.840.114 [id number] Univers 14:01:32 14:32:49 Visit Ladonna Leyva 350.1.13.10 [place] [phone] Nd dical nal [address] [facility] 2020-05-02 2020-05-02 Outpatient R [facility] [id number] -[id number] Univers 14:00:00 14:00:00 [id number] ity of [facility] 2020-05-02 2020-05-02 Outpatient R [facility] [id number] Univers 14:00:00 14:00:00 ity of [facility] 2020-04-30 2020-04-30 Outpatient [facility] [id number] -[id number] Univers 15:00:00 15:00:00 [id number] ity of [facility] 2020-04-30 2020-04-30 Outpatient R [facility] [id number] Univers 10:00:00 10:00:00 ity of [facility] 2020-04-26 2020-04-26 Outpatient R [facility] [id number] -[id number] Univers 15:15:00 15:15:00 [id number] ity of [facility] 2020-04-26 2020-04-26 Outpatient R [facility] [id number] Univers 14:00:00 14:00:00 ity of [facility] 2020-04-23 2020-04-23 Outpatient [facility] [id number] Univers 15:00:00 15:00:00 [id number] ity of [facility] 2020-04-23 2020-04-23 Outpatient P NORAH ZAMUDIO [facility] ZECHARIAH [id number] Univers 05:13:00 05:13:00 NORAH ZAMUDIO ity of [facility] 2020-04-18 2020-04-18 Outpatient R [facility] [id number] Univers 15:15:00 15:15:00 [id number] ity of [facility] 2020-04-18 2020-04-18 Outpatient R [facility] [id number] Univers 14:00:00 14:00:00 ity of [facility] 2020-04-18 2020-04-18 Initial Rishi Singh [facility] 1.2.840.114 [id number] Univers 11:38:03 13:17:26 Sona Figueredo Luke Y HEALTH 350.1 .13.10 ity of Visit CLINICS [place] [phone] [address] 2020-04-16 2020-04-16 Routine Room, [facility] 1.2.840.1 14 [id number] Univers 15:00:45 17:11:56 Ladonna Leyva Faizan Murillo 350.1.13.10 ity of Visit [place] [phone] Nd dical [address] 2020-04-16 2020-04-16 Outpatient [facility] [id number] -[id number] Univers 15:00:00 15:00:00 [id number] ity of [facility] 2020-04-16 2020-04-16 Outpatient R GORDON LADONNA [facility] [id number] Univers 15:00:00 15:00:00 ity of [facility] 2020-04-16 2020-04-16 Telephone Singh, [facility] 1.2.840.114 [id number] Univers 00:00:00 00:00:00 [facility] 350.1.13.10 i ty of CLINICS [place] [phone] [address] 2020-04-13 2020-04-13 Forensic Audit Expert Ultrasound, [facility] 1.2 .840.114 [id number] Univers 13:25:43 13:55:43 Visit Amada Hernandez 350.1.13.10 ity of [place] [phone] [address] 2020-04-13 2020-04-13 Outpatient R [facility] [id number] Univers 13:30:00 13:30:00 [id number] ity of [facility] 2020-04-13 2020-04-13 [facility] [id number] Univers 13:30:00 13:30:00 HERNANDEZAMADA ELLIS ity of [facility] 2020-04-12 2020-04-12 Routine Room, [facility] 1.2.840.1 14 [id number] Univers 14:59:15 16:52:34 Gordon Ladonna Murillo 350.1.13.10 ity of Visit [place] 4[place] [phone] Nd dical nal [address] [place] [address] 2020-04-12 2020-04-12 Outpatient [facility] [id number] Univers 15:00:00 15:00:00 [id number] ity of [facility] 2020-04-12 2020-04-12 Outpatient R [facility] [id number] Univers 15:00:00 15:00:00 ity of [facility] 2020-04-09 2020-04-09 Outpatient R [facility] [id number] Univers 15:00:00 15:00:00 [id number] ity of [facility] 2020-04-09 2020-04-09 Outpatient R [facility] [id number] Univers 15:00:00 15:00:00 ity of [facility] 2020-04-04 2020-04-04 Forensic Audit Expert Ultrasound, [facility] 1.2 .840.114 [id number] Univers 09:54:38 10:24:38 Visit Amada Hernandez HUMANE AGENT 350.1.13.10 ity of [facility] 4.2.7.2.686 Kostas as MATERNAL [phone] [facility] ical & CHILD [address] [place] [address] 2020-04-04 2020-04-04 Outpatient R [facility] [id number] Univers 10:00:00 10:00:00 [id number] ity of [facility] 2020-04-04 2020-04-04 Outpatient P [facility] [id number] Univers 10:00:00 10:00:00 ity of [facility] 2020-03-30 2020-03-30 Forensic Audit Expert Ultrasound, [facility] 1.2 .840.114 [id number] Univers 14:26:00 14:56:00 Visit Norah Zamudio [place] 350.1.13.10 ity of [place] 4[place].2.[place] [phone] Nd dical nal [address] [place] [address] 2020-03-30 2020-03-30 Outpatient R [facility] [id number] Univers 14:30:00 14:30:00 ity of [facility] 2020-03-30 2020-03-30 Outpatient R [facility] [id number] Univers 14:30:00 14:30:00 ity of [facility] 2020-03-29 2020-03-29 Routine Room, [facility] 1.2.840.1 14 [id number] Univers 14:58:43 16:00:14 Ladonna Leyva Cam [place] 350.1.13.10 ity of Visit [place] 4[place]2.[place].2.[place] [phone] Nd dical nal [address] [place] [address] 2020-03-29 2020-03-29 Outpatient [facility] [id number] -[id number] Univers 15:00:00 15:00:00 ity of [facility] 2020-03-29 2020-03-29 Outpatient R [facility] [id number] Univers 15:00:00 15:00:00 ity of [facility] 2020-03-28 2020-03-28 Case Ladonna Leyva [facility] 1.2.494.116 [id number] Univers 00:00:00 00:00:00 Management [facility] 350.1.13.10 ity of [place] 4.2.7.2.[place] [phone] Nd dical nal [address] [place] [address] 2020-03-27 2020-03-27 Outpatient R [facility] [id number] Univers 15:00:00 15:00:00 ity of [facility] 2020-03-26 2020-03-26 Forensic Audit Expert [facility]trasound, [facility] 1.2 .840.114 [id number] Univers 15:09:46 15:33:40 Visit Mayra Pinto HUMANE AGENT 350.1. 13.10 ity of REGIONAL 4.2.7.2.686 [place]ost[place] as MATERNAL [phone] Med ical & CHILD [address] [place] [address] 2020-03-26 2020-03-26 Outpatient R [facility] [id number] Univers 14:45:00 14:45:00 ity of [facility] 2020-03-26 2020-03-26 Outpatient P [facility] [id number] Univers 14:45:00 14:45:00 ity of [facility] 2020-03-21 2020-03-21 Routine Room, [facility] 1.2.840.1 14 [id number] Univers 15:01:47 15:56:49 Ladonna Leyva 350.1.13.10 ity of [place] 4[place].2.[place] [phone] Nd dic[address] 2020-03-21 2020-03-21 Outpatient R [facility] [id number] Univers 15:00:00 15:00:[id number] [facility] 2020-03-21 2020-03-21 Outpatient R [facility] [id number] Univers 15:00:00 15:00:00 ity of [facility] 2020-03-19 2020-03-19 Outpatient R [facility] [id number] Univers 15:00:00 15:00:00 [id number] ity of [facility] 2020-03-19 2020-03-19 Outpatient R [facility] [id number] Univers 15:00:00 15:00:00 ity of [facility] 2020-03-19 2020-03-19 [facility] [id number] Univers 00:00:00 00:00:00 RUY ity of [facility] 2020-03-15 2020-03-15 Outpatient R [facility] [id number] Univers 15:00:00 15:00:00 [id number] ity of [facility] 2020-03-15 2020-03-15 Outpatient R [facility] [id number] Univers 15:00:00 15:00:00 ity of [facility] 2020-03-14 2020-03-14 Routine Room, [facility] 1.2.840.1 14 [id number] Univers 11:24:52 12:51:24 Ladonna Leyva 350.1.13.10 ity of Visit [place] 4[place].2.[place] [phone] [address] 2020-03-14 2020-03-14 Outpatient R LADONNA LEYVA [facility] [id number] Univers 11:15:00 11:15:00 [id number] ity of [facility] 2020-03-14 2020-03-14 Outpatient R LADONNA LEYVA [facility] [id number] Univers 11:15:00 11:15:00 ity of [facility] 2020-03-14 2020-03-14 Outpatient R [facility] [id number] Univers 11:00:00 11:00:00 ity of [facility] 2020-03-14 2020-03-14 Letter Darnell [facility] 1.2.201.192 [id number] Univers 00:00:00 00:00:00 (Out) Ruy Murillo 350.1.13.10 i ty of [place] [phone] Nd dical nal [address] [place] [address] 2020-03-13 2020-03-13 Outpatient R [facility] [id number] Univers 15:00:00 15:00:00 [id number] ity of [facility] 2020-03-13 2020-03-13 Outpatient R [facility] [id number] Univers 15:00:00 15:00:00 ity of [facility] 2020-03-09 2020-03-09 Forensic Audit Expert 5, [facility] Us Room [facility]ERS[facility] 1 .2.840.114 [id number] Univers 13:26:10 14:23:27 Visit Amada Hernandez [facility] 350.1.13.10 ity of CL[place] [phone] [address] 2020-03-09 2020-03-09 Outpatient R [facility] [id number] Univers 13:00:00 13:00:00 [id number] ity of [facility] 2020-03-09 2020-03-09 Outpatient P [facility] [id number] Univers 13:00:00 13:00:00 ity of [facility] 2020-03-09 2020-03-09 Telephone Ladonna Leyva [facility] 1.2.840.114 [id number] Univers 00:00:00 00:00:00 Faizan Murillo 350.1.13.10 i ty of [place] [phone] Nd dical nal 134 [facility] 2020-03-02 2020-03-02 Forensic Audit Expert 2, [facility] 1.2.840.114 [id number] Univers 10:17:56 10:32:56 Visit Gordon Ladonna Murillo 350.1.13.10 ity of [place] 4[place].7.2.[place] [phone] Nd dical nal 353 [facility] 2020-03-02 2020-03-02 Outpatient R [facility] [id number] Univers 10:15:00 10:15:00 ity of [facility] 2020-03-02 2020-03-02 Outpatient R LADONNA LEYVA [facility] [id number] Univers 10:15:00 10:15:00 ity of [facility] 2020-03-01 2020-03-01 Forensic Audit Expert 3, [facility] Room UN[facility]ERSIT 1 .2.840.114 [id number] Univers 12:58:02 13:44:17 Visit [facility] 350.1.13.10 ity of [place] [id number] [address] 2020-03-01 2020-03-01 Outpatient R [facility] [id number] -[id number] Univers 13:00:00 13:00:00 ity of [facility] 2020-03-01 2020-03-01 Outpatient P [facility] [id number] Univers 13:00:00 13:00:00 ity of [facility] 2020-02-20 2020-02-20 Outpatient R [facility] [id number] Univers 11:30:00 11:30:00 [id number] ity of [facility] 2020-02-20 2020-02-20 Outpatient R [facility] [id number] Univers 11:30:00 11:30:00 ity of [facility] 2020-02-14 2020-02-14 Routine Ladonna Leyva [facility] 1.2.425.795 [id number] Univers 11:08:11 12:13:04 Faizan Murillo 350.1.13.10 ity of Visit [place] 4[place]2.7.2.[place] [phone] Nd dical [address] 2020-02-14 2020-02-14 Outpatient R LADONNA LEYVA [facility] [id number] Univers 11:15:00 11:15:[address] [facility] 2020-02-14 2020-02-14 Outpatient R LADONNA LEYVA [facility] [id number] Univers 11:15:00 11:15:00 ity of [facility] 2020-01-16 2020-01-16 Outpatient R DARNELL [facility] [id number] Univers 08:00:00 08:00:[id number] [facility] 2020-01-16 2020-01-16 Outpatient R DARNELL [facility] [id number] Univers 08:00:00 08:00:[address] [facility] 2020-01-09 2020-01-09 Outpatient R DARNELL [facility] [id number] Univers 16:00:00 16:00:[id number] [facility] 2020-01-09 2020-01-09 Outpatient R DARNELL [facility] [id number] Univers 16:00:00 16:00:00 [facility] 2020-01-05 2020-01-06 Forensic Audit Expert 1, [facility] Us Room UNIVERSIT 1 .2.840.114 [id number] Univers 14:15:37 08:27:56 Visit [facility] HEALTH 350.1.13.10 ity of [place] [phone] [address] 2020-01-05 2020-01-05 Outpatient R [facility] [id number] Univers 14:15:00 14:15:[address] [facility] 2020-01-05 2020-01-05 Outpatient P [facility] [id number] Univers 14:15:00 14:15:[address] [facility] 2020-01-04 2020-01-05 Office 2, [facility] Genetic Consults UNIVERS IT 1.2.840.114 [id number] Univers 12:14:02 09:23:22 Visit Matthew Alcantar Y HEALTH 350.1.13.10 ity of [place] [phone] [address] 2020-01-04 2020-01-04 Outpatient R [facility] [id number] Univers 13:00:00 13:00:00 ity of [facility] 2020-01-04 2020-01-04 Outpatient P [facility] [id number] Univers 13:00:00 13:00:[address] [facility] 2020-01-03 2020-01-03 Forensic Audit Expert Ultrasound, [facility] 1.2 .840.114 [id number] Univers 08:15:39 09:15:39 Visit Mayra Pinto HUMANE AGENT 350.1. 13.10 ity of REGIONAL 4.2.7.2.686 Kost[place] as MATERNAL [phone] Med ical & CHILD [address] [place] [address] 2020-01-03 2020-01-03 Outpatient R [facility] [id number] Univers 08:00:00 08:00:[address] [facility] 2020-01-03 2020-01-03 Outpatient R [facility] [id number] Univers 08:00:00 08:00:00 ity of [facility] 2019-12-12 2019-12-12 Outpatient R [facility] [id number] Univers 11:00:00 11:00:00 [id number] ity of [facility] 2019-12-12 2019-12-12 Outpatient R [facility] [id number] Univers 11:00:00 11:00:00 ity of [facility] 2019-12-06 2019-12-06 Initial Ladonna Leyva [facility] 1.2.436.836 [id number] Univers 11:08:00 12:04:06 [place] 350.1.13.10 ity of Visit [place] [phone] [address] 2019-12-06 2019-12-06 Outpatient R LADONNA LEYVA [facility] [id number] Univers 11:00:00 11:00:[id number] [facility] 2019-12-06 2019-12-06 Outpatient R LADONNA LEYVA [facility] [id number] Univers 11:00:00 11:00:00 ity of [facility] 2019-12-06 2019-12-06 Orders Doctor LAURY 1.2.840.114 [id number] Univers 00:00:00 00:00:00 Only Unassigned, JONE 350.1.13.10 ity of [place] [facility] 4.2.7.2.686 Kostas as [phone] [facility] 009 [place] 2019-11-28 2019-11-28 Emergency [facility] 1.2.844.071 [id number] Univers 16:03:00 19:22:00 Matthias Murillo 350.1.13.10 i ty of [place] 4.2.7.2.686 [place] [facility] [phone] [place] [id number] [place] 2019-11-28 2019-11-28 Orders Doctor LAURY 1.2.840.114 [id number] Univers 00:00:00 00:00:00 Only Unassigned, JONE 350.1.13.10 ity of [place] [facility] 4.2.7.2.686 Kostas as [phone] [address] 2019-11-22 2019-11-22 Abstract Akinsipe, [facility] 1.2.840.114 [id number] Univers 00:00:00 00:00:00 Kelsey Jewell HUMANE AGENT 350.1.13.10 ity of [facility] 4.2.7.2.686 Kostas as MATERNAL [phone] Med ical & CHILD 107 [facility] 2019-11-22 2019-11-22 Telephone Pob1, Acute [facility] 1.2.840.114 [id number] Univers 00:00:00 00:00:00 [facility] 350.1.13.10 ity of [place] 4.2.7.2.686 Kostas as Professio [phone] Nd dical nal 044 [place] [address] 2019-11-18 2019-11-18 Laboratory Lab, Adc Fam Pob I [facility] 1.2. 840.114 [id number] Univers 10:40:23 11:00:23 Only Amada Hernandez Health 350.1.13.10 ity of [place] 4.2.7.2.686 Kostas as Professio [phone] Nd dical [address] Office [address] 2019-11-18 2019-11-18 Forensic Audit Expert Ultrasound, [facility] 1.2 .840.114 [id number] Univers 10:00:28 10:24:10 Visit Amada Hernandez HUMANE AGENT 350.1.13.10 ity of REGIONAL 4.2.7.2.686 [place]ost[place] as MATERNAL [phone] [facility] ical & CHILD 369 [facility] 2019-11-18 2019-11-18 Outpatient P [facility] [id number] Univers 10:00:00 10:00:[id number] [facility] 2019-11-18 2019-11-18 Outpatient P [facility] [id number] Univers 10:00:00 10:00:[address] [facility] 2019-11-10 2019-11-10 Outpatient R [facility] [id number] Univers 14:45:00 14:45:[id number] [facility] 2019-11-10 2019-11-10 Outpatient P [facility] [id number] Univers 14:45:00 14:45:[address] [facility] 2019-11-07 2019-11-07 Telephone [facility] 1.2.840.114 [id number] Univers 00:00:00 00:00:00 Kelsey C HUMANE AGENT 350.1.13.10 ity of REGIONAL 4.2.7.2.686 Kostas as MATERNAL [phone] [facility] & CHILD [address] [place] [address] 2019-11-03 2019-11-03 Initial [facility] 1.2.389.262 [id number] Univers 09:02:46 10:40:27 Kelsey C HUMANE AGENT 350.1.13.10 ity of Visit REGIONAL 4.2.7.2.686 Kostas as MATERNAL [phone] [facility] & CHILD [address] [place] [address] 2019-11-03 2019-11-03 Outpatient R DAVIE [facility] [id number] Univers 08:30:00 08:30:00 KELSEY becerril o f [facility] 2018-01-27 2018-01-27 Outpatient Ngozi Rodriguez [id number] [facility] [address] 16:01:00 16:01:00 [facility] 2018-01-26 2018-01-26 Outpatient Ngozi Rodriguez [id number] 13:20:00 13:20:00 [facility] 2017-11-18 2017-11-18 Outpatient Ngozi Rodriguez [id number] 15:15:00 15:15:00 [facility] Results Test Test Test Results Result Source Description Time Comments Comments FL TIME OR 2020-06- These images do not require University of (NON-REPORTABLE 24 a Radiology diagnostic [facility] ) 20:04:28 report. Branch US ABDOMEN 2020-06- Cholelithiasis without U niversity of LIMITED 24 sonographic evidence for [facility] 13:51:23 acute cholecystitis. Mild Branch hepatic steatosis. Hepatomegaly. The right kidney was incompletely imaged. RL: [id number] EXAMINATION:US ABDOMEN LIMITED ORDERING PHYSICIAN: BELÉN CRESPO CLINICAL HISTORY: Abdominal pain ; COMPARISON:CT abdomen and pelvis from the same day TECHNIQUE:Sonographic images of the right upper quadrant. FINDINGS:The visualized abdominal aorta and proximal inferior vena cava aregrossly unremarkable. The visualized portions of the proximal body thepancreas are unremarkable. The liver is slightly increased in echogenicity.No focal hepatic lesions or intrahepatic bile duct dilation identified. Theright hepatic lobe measures 19.8 cm in length. Several small echogenicshadowing gallstones identified. Gallbladder wall is normal thickness. Nopericholecystic fluid. Sonographic Alejandro's sign is reportedly negative.Common bile duct measures 0.2 cm in caliber. Main portal vein appearspatent with normal directional flow. The right kidney was not completelyimaged, but appears normal echogenicity. The inferior pole the right kidneywas obscured by shadowing. Right kidney measures at least 10.8 cm inlength. No right upper quadrant ascites. [facility], Radiant Results Inft User - 07/18/2020 8:52 AM CDTEXAMINATION:US ABDOMEN LIMITEDORDERING PHYSICIAN: BELÉN TELLOINICAL HISTORY: Abdominal pain ;COMPARISON:CT abdomen and pelvis from the same dayTECHNIQUE:Sonographic images of the right upper quadrant.FINDINGS:The visualized abdominal aorta and proximal inferior vena cava aregrossly unremarkable. The visualized portions of the proximal body thepancreas are unremarkable. The liver is slightly increased in echogenicity.No focal hepatic lesions or intrahepatic bile duct dilation identified. Theright hepatic lobe measures 19.8 cm in length. Several small echogenicshadowing gallstones identified. Gallbladder wall is normal thickness. Nopericholecystic fluid. Sonographic Alejandro's sign is reportedly negative.Common bile duct measures 0.2 cm in caliber. Main portal vein appearspatent with normal directional flow. The right kidney was not completelyimaged, but appears normal echogenicity. The inferior pole the right kidneywas obscured by shadowing. Right kidney measures at least 10.8 cm inlength. No right upper quadrant ascites.IMPRESSIONCholelith iasis without sonographic evidence for acute cholecystitis.Mild hepatic steatosis. Hepatomegaly.The right kidney was incompletely imaged.RL: [id number] ABDOMEN 2020-06-25. ?No acute [facility] PELVIS W 24 intra-abdominal [place] [facility] CONTRAST 13:48:54 abnormality. The Branch gallbladder is unremarkable.The previously seen radiopaque cholelithiasis is not seen on this study. 2. ?Small supraumbilical fat-containing hernia with trace inflammatorystranding, likely postsurgical in nature. 3. ?Hepatomegaly with diffuse hepatic steatosis. Thickened endometriumsuggests secretory phase of menstrual cycle. A corpus luteal cyst is seenin the left ovary. Preliminary Report Dictated by Resident: Joel Nicole ?MD Dianne., have reviewed this study and agree with theabove report.EXAM: CT ABDOMEN PELVIS W CONTRAST 07/18/2020 6:36 AM HISTORY: 30 years-old Female with gallbladder problems. COMPARISON: CT abdomen pelvis with contrast 07/10/2020. TECHNIQUE AND FINDINGS: Contiguous axial imaging from the level of the lungbases through the pubic symphysis was performed after the administration ofintravenous nonionic iodinated contrast. Abdomen was scanned in venousphase. Corresponding coronal and sagittal MPR reconstructions wereobtained. ?Auto mA and/or iterative reconstruction were used to reduceradiation dose. FINDINGS: LOWER THORAX: The lungs bases are clear. No pleural or pericardialeffusions are visualized. LIVER: The liver measures 20.8 cm in craniocaudal dimension. Liver isdiffusely hypoattenuating. The liver has normal contour. Focal furtherfatty infiltration along the falciform ligament. No other focal hepaticlesion is seen within the limits of a single phase CT. The portal veins arepatent. GALLBLADDER AND BILIARY TREE: The previously seen radiopaque cholelithiasisis not seen on this study, the gallbladder is unremarkable. There is nointra or extrahepatic biliary ductal dilation. SPLEEN: Unremarkable. PANCREAS: Unremarkable. ADRENAL GLANDS: No adrenal nodules. KIDNEYS: The kidneys enhance normally. No nephrolithiasis or hydronephrosisis seen. Subcentimeter hyperdensity is seen within the right renalparenchyma and is too small to further characterize and likely simple renalcyst. PERITONEUM AND RETROPERITONEUM: No free air or free fluid. ABDOMINAL WALL: A supraumbilical fat-containing hernia (2:75) is seen withtrace inflammatory stranding. A piece of mesh is seen inferiorly and thesechanges may be due to prior surgery. LYMPH NODES: No lymphadenopathy. GI TRACT: The small bowel and colon show no gross abnormality. Priorappendectomy. PELVIS/BLADDER: The urinary bladder is decompressed. Heterogeneouslyenhancing uterus is seen with trace fluid within the endocervical canal. A1.2 x 1.3 x 1.7 corpus luteum cyst is seen at the left ovary the rightovary is unremarkable. VESSELS: Unremarkable. BONES AND SOFT TISSUES: No suspicious lytic or sclerotic bony lesions. [facility], Radiant Results Inft User - 07/18/2020 8:50 AM CDTEXAM: CT ABDOMEN PELVIS W CONTRAST 07/18/2020 6:36 AMHISTORY: 30 years-old Female with gallbladder problems.COMPARISON: CT abdomen pelvis with contrast 07/10/2020.TECHNIQUE AND FINDINGS: Contiguous axial imaging from the level of the lungbases through the pubic symphysis was performed after the administration ofintravenous nonionic iodinated contrast. Abdomen was scanned in venousphase. Corresponding coronal and sagittal MPR reconstructions wereobtained. Auto mA and/or iterative reconstruction were used to reduceradiation dose.FINDINGS:LOWER THORAX: The lungs bases are clear. No pleural or pericardialeffusions are visualized. LIVER: The liver measures 20.8 cm in craniocaudal dimension. Liver isdiffusely hypoattenuating. The liver has normal contour. Focal furtherfatty infiltration along the falciform ligament. No other focal hepaticlesion is seen within the limits of a single phase CT. The portal veins arepatent.GALLBLADDER AND BILIARY TREE: The previously seen radiopaque cholelithiasisis not seen on this study, the gallbladder is unremarkable. There is nointra or extrahepatic biliary ductal dilation.SPLEEN: Unremarkable.PANCREAS: Unremarkable.ADRENAL GLANDS: No adrenal nodules.KIDNEYS: The kidneys enhance normally. No nephrolithiasis or hydronephrosisis seen. Subcentimeter hyperdensity is seen within the right renalparenchyma and is too small to further characterize and likely simple renalcyst. PERITONEUM AND RETROPERITONEUM: No free air or free fluid.ABDOMINAL WALL: A supraumbilical fat-containing hernia (2:75) is seen withtrace inflammatory stranding. A piece of mesh is seen inferiorly and thesechanges may be due to prior surgery.LYMPH NODES: No lymphadenopathy.GI TRACT: The small bowel and colon show no gross abnormality. Priorappendectomy.PELVIS/BL ADDER: The urinary bladder is decompressed. Heterogeneouslyenhancing uterus is seen with trace fluid within the endocervical canal. A1.2 x 1.3 x 1.7 corpus luteum cyst is seen at the left ovary the rightovary is unremarkable.VESSELS: Unremarkable.BONES AND SOFT TISSUES: No suspicious lytic or sclerotic bony lesions.IMPRESSION1. No acute intra-abdominal abnormality. The gallbladder is unremarkable.The previously seen radiopaque cholelithiasis is not seen on this study.2. Small supraumbilical fat-containing hernia with trace inflammatorystranding, likely postsurgical in nature.3. Hepatomegaly with diffuse hepatic steatosis. Thickened endometriumsuggests secretory phase of menstrual cycle. A corpus luteal cyst is seenin the left ovary.Preliminary Report Dictated by Resident: Joel Patton MD., have reviewed this study and agree with theabove report. BILI UNCONJUGATED/BILI CONJUG 2020-07-18 13:32:55 Test Item Value Reference Range Interpretation Comme nts BILI CONJ (test code = 2075102189) 0.0 mg/dL 0.0-0.3 BILI UNCON (test code = 3452657947) 0.6 mg/dL 0.1-1.1 Lab Interpretation (test code = 10747-1) Normal [facility] RAPID TESTING[facility]2020-07-18 13:20:12 Test Item Value Reference Range Interpretation Comments SARS-CoV-2 Rapid ID NOW Not Detected Not Detected (test code = 55807-0) TRISTON (test code = TRISTON) ID NOW COVID-19 Assay is an isothermal nucleic acid amplification test intended for the qualitative detection of nucleic acid from SARS-CoV-2 viral RNA in nasopharyngeal (TREE TRIMMER) specimens. It is used under Emergency Use Authorization (EUA) by FDA. The limit of detection (LOD) of the assay is 125 Genome Equivalents/mL. A positive result is indicative of the presence of SARS-CoV-2 RNA. ?Clinical correlation with patient history and other diagnostic information is necessary to determine patient infection status. A negative (Not Detected) result does not preclude SARS-CoV-2 infection. In patients with clinical symptoms and other tests that are consistent with SARS-CoV-2 infection, negative results should be treated as presumptive negative and a new specimen should be tested with alternative PCR molecular test. Invalid: Please collect a new specimen for repeat patient testing if clinically indicated. Lab Interpretation Normal (test code = 22093-1) [facility] 12:30:58 Test Item Value Reference Range Interpretation Comments APPEARANCE (test code = Clear Clear 3986987161) COLOR (test code = Yellow Yellow 8434713366) PH (test code = 4.8-8.0 6803084991) SP GRAVITY (test code = 1.003-1.030 9890278076) GLU U QUAL (test code = Normal Normal 7945956089) BLOOD (test code = Negative Negative 7546168676) KETONES (test code = Negative Negative 8737429426) PROTEIN (test code = Negative Negative 2887-8) UROBILIN (test code = Normal Normal 7993876434) BILIRUBIN (test code = Negative Negative 9861986967) NITRITE (test code = Negative Negative 8225452670) LEUK VAHID (test code = 250/uL Negative A 0721551535) RBC/HPF (test code = See_Comment H [Autom ated message] 1814581996) The system Hello[employer] Messenger generated this result transmitted ref erence range: 0 - 3 HP F. The reference range was not used to int erpret this result as normal/abnormal . WBC/HPF (test code = See_Comment H [Autom ated message] 0586325295) The system [employer] generated this result transmitted ref erence range: 0 - 5 HP F. The reference range was not used to int erpret this result as normal/abnormal . BACTERIA (test code = Few Negative A 0304138186) SQ EPITH (test code = HPF 1342224323) Lab Interpretation (test Abnormal code = 72894-9) [facility]. METABOLIC PANEL (51227)2020-07-18 12:30:33 Test Item Value Reference Range Interpretation Comments NA (test code = 140 mmol/L 135-145 5398930514) K (test code = 4.2 mmol/L 3.5-5.0 6506306235) CL (test code = 108 mmol/L 98-108 7408233344) CO2 TOTAL (test code = 24 mmol/L 23-31 1017038958) AGAP (test code = 2-16 5106483634) BUN (test code = 13 mg/dL 7-23 9231712957) GLUCOSE (test code = 101 mg/dL 70-110 6176175654) CREATININE (test code = 0.47 mg/dL 0.50-1.04 L 0062773034) TOTAL BILI (test code = 0.8 mg/dL 0.1-1.6 6460891213) CALCIUM (test code = 8.7 mg/dL 8.6-10.6 6159451586) T PROTEIN (test code = 7.2 g/dL 6.3-8.2 2067141421) ALBUMIN (test code = 4.4 g/dL 3.5-5.0 4369147659) ALK PHOS (test code = 169 U/L 34-122 H 9932259409) ALTv (test code = 79 U/L 5-35 H 1742-6) AST(SGOT) (test code = 37 U/L 13-40 1335659859) eGFR Calculation mL/min/1.73m2 (Non-) (test code = 8546207953) eGFR Calculation mL/min/1.73m2 () (test code = 4408053717) TRISTON (test code = TRISTON) Association of Glomerular Filtration Rate (GFR) and Staging of Kidney Disease* + --+ --+ ------+| GFR (mL/min/1.73 m2) ?| With Kidney Damage ?| ?Without Kidney Damage+ --------+ --------+ +| ?>90 ?| ?Stage one ?| ? Normal ?+ ---+ ---+ -------+| ?60-89 ?| ?Stage two ?| ? Decreased GFR ? + --+ --+ ------+| ?30-59 ?| ?Stage three ?| ? Stage three ? + --+ --+ ------+| ?15-29 ?| ?Stage four ? | ? Stage four ?+ ---+ ---+ -------+| ?<15 (or dialysis) ? ?| ?Stage five ? | ? Stage five ?+ ---+ ---+ -------+ *Each stage assumes the associated GFR level has been in effect for at least three months. ?Stages 1 to 5, with or without kidney disease, indicate chronic kidney disease. Notes: Determination of stages one and two (with eGFR >59mL/min/1.73 m2) requires estimation of kidney damage for at least three months as defined by structural or functional abnormalities of the kidney, manifested by either:Pathological abnormalities or Markers of kidney damage (including abnormalities in the composition of the blood or urine or abnormalities in imaging tests). Lab Interpretation Abnormal (test code = 30811-0) [facility] 12:18:04 Test Item Value Reference Range Interpretation Comments LIPASE (test code = 3349921073) 127 U/L 0-220 Lab Interpretation (test code = Normal 03751-5) [facility] WITH [id number] 11:56:46 Test Item Value Reference Range Interpretation Comments WBC (test code = See_Comment [Automated 6790-2) message] The sy stem which generated this result transmitted reference range : 4.30 - 11.10 10*3/?L. The reference range was not used to interpret this result as normal/abnormal . RBC (test code = See_Comment [Automated 789-8) message] The sy stem which generated this result transmitted reference range : 3.93 - 5.25 10*6/?L. The reference range was not used to interpret this result as normal/abnormal . HGB (test code = 12.5 g/dL 11.6-15.0 718-7) HCT (test code = 37.6 % 35.7-45.2 4544-3) MCV (test code = 92.2 fL 80.6-95.5 787-2) MCH (test code = 30.6 pg 25.9-32.8 785-6) MCHC (test code = 33.2 g/dL 31.6-35.1 786-4) RDW-SD (test code = 42.2 fL 39.0-49.9 47288-0) RDW-CV (test code = 12.6 % 12.0-15.5 788-0) PLT (test code = See_Comment [Automated 777-3) message] The sy stem which generated this result transmitted reference range : 166 - 358 10*3/ ?L. The reference r dejuan was not used to interpret this result as normal/abnormal . MPV (test code = 11.0 fL 9.5-12.9 19521-0) NRBC/100 WBC (test See_Comment [Automat ed code = 1188230229) message] The system which generated this result transmitted reference range : 0.0 - 10.0 /100 WBCs. The refer ence range was not u sed to interpret th is result as normal/abnormal . NRBC x10^3 (test code <0.01 See_Comment [Auto mated = 4875908365) message] The s ystem which generated this result transmitted reference range : 10*3/?L. The reference range was not used to interpret this result as normal/abnormal . GRAN MAT (NEUT) % 73.4 % (test code = 770-8) IMM GRAN % (test code 0.40 % = 6413112075) LYMPH % (test code = 19.4 % 736-9) MONO % (test code = 4.8 % 5905-5) EOS % (test code = 1.5 % 713-8) BASO % (test code = 0.5 % 706-2) GRAN MAT x10^3(ANC) 8.01 10*3/uL 1.88-7.09 H (test code = 8787669356) IMM GRAN x10^3 (test 0.04 10*3/uL 0.00-0.06 code = 3856858421) LYMPH x10^3 (test code 2.12 10*3/uL 1.32-3.29 = 731-0) MONO x10^3 (test code 0.52 10*3/uL 0.33-0.92 = 742-7) EOS x10^3 (test code = 0.16 10*3/uL 0.03-0.39 711-2) BASO x10^3 (test code 0.05 10*3/uL 0.01-0.07 = 704-7) Lab Interpretation Abnormal (test code = 84233-3) [facility] [id number] 11:36:00 Test Item Value Reference Range Interpretation Comments POCT PREG (test code = 1605) Negative On board controls acceptable with Present C Line (test code = 3574) POCT PREG LOT # (test code = HCG [id number] [id number]) POCT PREG TEST DATE (test 12/25/2021 code = 3576) Lab Interpretation (test code = Normal 15198-6) [facility] ABDOMEN PELVIS W [id number] 08:04:39 No acute process identified in the abdomen or pelvis. Cholelithiasis without CT evidence for acute cholecystitis. RL: 460 AFC: 16876 Ordering physician: MATTHIAS BEDOLLA Indication: Acute abdominal pain COMPARISON: None TECHNIQUE: Axial images of the abdomen and pelvis are performed followingadministration of intravenous contrast material. Images were reformatted inthe coronal and sagittal plane. CT scan was performed accordingto ALARA(as low as reasonably achievable) policy. FINDINGS: The lung bases are clear. There is cholelithiasis withoutadjacent inflammatory change to suggest acute cholecystitis. The liver,spleen, adrenal glands and pancreas are within normal limits. The kidneysare normal in appearance bilaterally without hydronephrosis. No abdominalaortic aneurysm or dissection is appreciated. There is no free fluid in the pelvis. The CT appearance of the uterus andovaries is within normal limits. There is no bowel obstruction, widespreaddiverticulosis or acute diverticulitis. The appendix is surgically absent. Bone windows through the abdomen and pelvis demonstrate no osseousdestructive lesion. [facility], Radiant Results Inft User - 07/10/2020 3:05 AM CDTOrdering physician: MATTHIAS Knott MEDINAIndication: Acute abdominal painCOMPARISON: NoneTECHNIQUE: Axial images of the abdomen and pelvis are performed followingadministration of intravenous contrast material. Images were reformatted inthe coronal and sagittal plane. CTscan was performed according to ALARA(as low as reasonably achievable) policy.FINDINGS: The lung bases are clear. There is cholelithiasis withoutadjacent inflammatory change to suggest acute cholecystitis. The liver,spleen, adrenal glands and pancreas are within normal limits. The kidneysare normal inappearance bilaterally without hydronephrosis. No abdominalaortic aneurysm or dissection is appreciated.There is no free fluid in the pelvis. The CT appearance of the uterus andovaries is within normallimits. There is no bowel obstruction, widespreaddiverticulosis or acute diverticulitis. The appendix is surgically absent. Bone windows through the abdomen and pelvis demonstrate no osseousdestructivelesion.IMPRESSIONNo acute process identified in the abdomen or pelvis.Cholelithiasis without CT evidence for acute cholecystitis.RL: 460AF: 08131 Electronically signed by Griselda Varner MD, PhD at07/10/2020 3:04 AMUnSt[facility] [id number] 06:46:26 Test Item Value Reference Range Interpretation Comments APPEARANCE (test code = Cloudy Clear A 5583443761) COLOR (test code = Yellow Yellow 1181580947) PH (test code = 4.8-8.0 0143745145) SP GRAVITY (test code = 1.003-1.030 4423654770) GLU U QUAL (test code = Normal Normal 0436170164) BLOOD (test code = Negative Negative 2502596729) KETONES (test code = Negative Negative 1166073376) PROTEIN (test code = Negative Negative 2887-8) UROBILIN (test code = Normal Normal 8431085510) BILIRUBIN (test code = Negative Negative 3849092852) NITRITE (test code = Negative Negative 1987273901) LEUK VAHID (test code = 25/uL Negative A 0057627942) RBC/HPF (test code = See_Comment [Autom ated message] 4289776337) The system [employer] generated this result transmitted ref erence range: 0 - 3 HP F. The reference range was not used to int erpret this result as normal/abnormal . WBC/HPF (test code = See_Comment H [Autom ated message] 9954565439) The system [employer] generated this result transmitted ref erence range: 0 - 5 HP F. The reference range was not used to int erpret this result as normal/abnormal . BACTERIA (test code = Many Negative A 5651204459) MUCOUS (test code = Slight Negative LPF A 8782471164) AMORPHOUS (test code = Moderate Rare HPF A 5830081215) SQ EPITH (test code = HPF 8772846661) Lab Interpretation (test Abnormal code = 33821-9) [facility]. METABOLIC PANEL (05541)2020-07-10 06:33:53 Test Item Value Reference Range Interpretation Comments NA (test code = 139 mmol/L 135-145 2043221094) K (test code = 3.7 mmol/L 3.5-5.0 6100952806) CL (test code = 102 mmol/L 98-108 0178381687) CO2 TOTAL (test code = 29 mmol/L 23-31 4060267443) AGAP (test code = 2-16 9084178123) BUN (test code = 12 mg/dL 7-23 2547321200) GLUCOSE (test code = 118 mg/dL 70-110 H 2149590645) CREATININE (test code = 0.67 mg/dL 0.50-1.04 8028192421) TOTAL BILI (test code = 0.6 mg/dL 0.1-1.7 3478167238) CALCIUM (test code = 9.2 mg/dL 8.6-10.6 2204711898) T PROTEIN (test code = 7.2 g/dL 6.3-8.2 0131102877) ALBUMIN (test code = 4.6 g/dL 3.5-5.0 1293199729) ALK PHOS (test code = 168 U/L 34-122 H 9114318302) ALTv (test code = 111 U/L 5-35 H 1742-6) AST(SGOT) (test code = 30 U/L 13-40 5213124581) eGFR Calculation mL/min/1.73m2 (Non-) (test code = 2407295091) eGFR Calculation mL/min/1.73m2 () (test code = 5468579111) TRISTON (test code = TRISTON) Association of Glomerular Filtration Rate (GFR) and Staging of Kidney Disease* + --+ --+ ------+| GFR (mL/min/1.73 m2) ?| With Kidney Damage ?| ?Without Kidney Damage+ --------+ --------+ +| ?>90 ?| ?Stage one ?| ? Normal ?+ ---+ ---+ -------+| ?60-89 ?| ?Stage two ?| ? Decreased GFR ? + --+ --+ ------+| ?30-59 ?| ?Stage three ?| ? Stage three ? + --+ --+ ------+| ?15-29 ?| ?Stage four ? | ? Stage four ?+ ---+ ---+ -------+| ?<15 (or dialysis) ? ?| ?Stage five ? | ? Stage five ?+ ---+ ---+ -------+ *Each stage assumes the associated GFR level has been in effect for at least three months. ?Stages 1 to 5, with or without kidney disease, indicate chronic kidney disease. Notes: Determination of stages one and two (with eGFR >59mL/min/1.73 m2) requires estimation of kidney damage for at least three months as defined by structural or functional abnormalities of the kidney, manifested by either:Pathological abnormalities or Markers of kidney damage (including abnormalities in the composition of the blood or urine or abnormalities in imaging tests). Lab Interpretation Abnormal (test code = 46860-1) [facility] 06:33:18 Test Item Value Reference Range Interpretation Comments LIPASE (test code = 9408534947) 85 U/L 0-220 Lab Interpretation (test code = Normal 11104-7) [facility] WITH [id number] 06:24:16 Test Item Value Reference Range Interpretation Comments WBC (test code = See_Comment H [Automated 6690-2) message] The sy stem which generated this result transmitted reference range : 4.30 - 11.10 10*3/?L. The reference range was not used to interpret this result as normal/abnormal . RBC (test code = See_Comment [Automated 789-8) message] The sy stem which generated this result transmitted reference range : 3.93 - 5.25 10*6/?L. The reference range was not used to interpret this result as normal/abnormal . HGB (test code = 12.5 g/dL 11.6-15.0 718-7) HCT (test code = 37.7 % 35.7-45.2 4544-3) MCV (test code = 92.9 fL 80.6-95.5 787-2) MCH (test code = 30.8 pg 25.9-32.8 785-6) MCHC (test code = 33.2 g/dL 31.6-35.1 786-4) RDW-SD (test code = 43.1 fL 39.0-49.9 49076-6) RDW-CV (test code = 12.6 % 12.0-15.5 788-0) PLT (test code = See_Comment [Automated 777-3) message] The sy stem which generated this result transmitted reference range : 166 - 358 10*3/ ?L. The reference r dejuan was not used to interpret this result as normal/abnormal . MPV (test code = 10.1 fL 9.5-12.9 44184-4) NRBC/100 WBC (test See_Comment [Automat ed code = 7395155084) message] The system which generated this result transmitted reference range : 0.0 - 10.0 /100 WBCs. The refer ence range was not u sed to interpret th is result as normal/abnormal . NRBC x10^3 (test code <0.01 See_Comment [Auto mated = 7599686927) message] The s ystem which generated this result transmitted reference range : 10*3/?L. The reference range was not used to interpret this result as normal/abnormal . GRAN MAT (NEUT) % 83.3 % (test code = 770-8) IMM GRAN % (test code 0.30 % = 6088378777) LYMPH % (test code = 12.4 % 736-9) MONO % (test code = 2.8 % 5905-5) EOS % (test code = 0.8 % 713-8) BASO % (test code = 0.4 % 706-2) GRAN MAT x10^3(ANC) 9.80 10*3/uL 1.88-7.09 H (test code = 7706440404) IMM GRAN x10^3 (test 0.04 10*3/uL 0.00-0.06 code = 3080304518) LYMPH x10^3 (test code 1.46 10*3/uL 1.32-3.29 = 731-0) MONO x10^3 (test code 0.33 10*3/uL 0.33-0.92 = 742-7) EOS x10^3 (test code = 0.09 10*3/uL 0.03-0.39 711-2) BASO x10^3 (test code 0.05 10*3/uL 0.01-0.07 = 704-7) Lab Interpretation Abnormal (test code = 74226-7) [facility] [id number] 06:00:00 Test Item Value Reference Range Interpretation Comments POCT PREG (test code = 1605) negative On board controls acceptable with present C Line (test code = 3574) POCT PREG LOT # (test code = 3575) [id number] POCT PREG TEST DATE (test 2022-02-24 code = 3576) Lab Interpretation (test code = Normal 69180-8) [facility] [id number] 22:58:00 Test Item Value Reference Range Interpretation Comments POCT PREG (test code = 1605) Negative On board controls acceptable with C Yes Line (test code = 3574) POCT PREG LOT # (test code = 3575) POCT PREG TEST DATE (test code = 3576) Lab Interpretation (test code = Normal 11256-3) [facility] [id number] 22:58:00 Test Item Value Reference Range Interpretation Comments POCT PREG (test code = 1605) Negative On board controls acceptable with C Yes Line (test code = 3574) POCT PREG LOT # (test code = 3575) POCT PREG TEST DATE (test code = 3576) Lab Interpretation (test code = Normal 00312-5) [facility] [id number] 22:58:00 Test Item Value Reference Range Interpretation Comments POCT PREG (test code = 1605) Negative On board controls acceptable with C Yes Line (test code = 3574) POCT PREG LOT # (test code = 3575) POCT PREG TEST DATE (test code = 3576) Lab Interpretation (test code = Normal 72163-7) [facility] [id number] 22:58:00 Test Item Value Reference Range Interpretation Comments POCT PREG (test code = 1605) Negative On board controls acceptable with C Yes Line (test code = 3574) POCT PREG LOT # (test code = 3575) POCT PREG TEST DATE (test code = 3576) Lab Interpretation (test code = Normal 90260-4) [facility] (ALB, T.PRO, BILI T, BU/BC, ALT, AST, ALK PHOS)2020-05-18 08:40:00 Test Item Value Reference Range Interpretation Comments TOTAL BILI (test code = 8043934118) 0.5 mg/dL 0.1-1.1 BILI UNCON (test code = 7224501529) 0.3 mg/dL 0.1-1.1 BILI CONJ (test code = 0860453056) 0.0 mg/dL 0-0.3 T PROTEIN (test code = 4603168380) 6.9 g/dL 6.3-8.2 ALBUMIN (test code = 0338234041) 4.0 g/dL 3.5-5 ALK PHOS (test code = 2975564282) 188 U/L 34-122 H ALTv (test code = 1742-6) 228 U/L 5-35 H AST(SGOT) (test code = 9890614072) 104 U/L 13-40 H Lab Interpretation (test code = Abnormal 32071-4) [facility] (ALB, T.PRO, BILI T, BU/BC, ALT, AST, ALK PHOS)2020-05-18 08:40:00 Test Item Value Reference Range Interpretation Comments TOTAL BILI (test code = 1637540426) 0.5 mg/dL 0.1-1.1 BILI UNCON (test code = 5925324078) 0.3 mg/dL 0.1-1.1 BILI CONJ (test code = 5293348529) 0.0 mg/dL 0-0.3 T PROTEIN (test code = 3619159461) 6.9 g/dL 6.3-8.2 ALBUMIN (test code = 6743394164) 4.0 g/dL 3.5-5 ALK PHOS (test code = 3364760847) 188 U/L 34-122 H ALTv (test code = 1742-6) 228 U/L 5-35 H AST(SGOT) (test code = 8284823493) 104 U/L 13-40 H Lab Interpretation (test code = Abnormal 59661-3) [facility] (NA, K, CL, CO2, GLUCOSE, BUN, CREATININE, CA)2020-05-18 08:39:00 Test Item Value Reference Range Interpretation Comments NA (test code = 138 mmol/L 135-145 8022156882) K (test code = 3.9 mmol/L 3.5-5 5243587956) CL (test code = 105 mmol/L 98-108 7222769627) CO2 TOTAL (test code = 24 mmol/L 23-31 8941319100) AGAP (test code = 2-16 3168375293) BUN (test code = 13 mg/dL 7-23 2539496236) GLUCOSE (test code = 103 mg/dL 70-110 8633590234) CREATININE (test code 0.78 mg/dL 0.5-1.04 = 9922483257) CALCIUM (test code = 8.9 mg/dL 8.6-10.6 5236905239) eGFR Calculation mL/min/1.73m2 (Non-) (test code = 5495452879) eGFR Calculation mL/min/1.73m2 () (test code = 4596320933) TRISTON (test code = TRISTON) Association of Glomerular Filtration Rate (GFR) and Staging of Kidney Disease* + -+ + ---+| GFR (mL/min/1.73 m2) ?| With Kidney Damage ?| ?Without Kidney Damage+ -------+ ------+ ---------+| ?>90 ?| ?Stage one ?| ? Normal ?+ --+ -+ ----+| ?60-89 ?| ?Stage two ?| ? Decreased GFR ? + -+ + ---+| ?30-59 ?| ?Stage three ?| ? Stage three ? + -+ + ---+| ?15-29 ?| ?Stage four ? | ? Stage four ?+ --+ -+ ----+| ?<15 (or dialysis) ? ?| ?Stage five ? | ? Stage five ?+ --+ -+ ----+ *Each stage assumes the associated GFR level has been in effect for at least three months. ?Stages 1 to 5, with or without kidney disease, indicate chronic kidney disease. Notes: Determination of stages one and two (with eGFR >59mL/min/1.73 m2) requires estimation of kidney damage for at least three months as defined by structural or functional abnormalities of the kidney, manifested by either:Pathological abnormalities or Markers of kidney damage (including abnormalities in the composition of the blood or urine or abnormalities in imaging tests). [facility] IrvingLipase [id number] 08:39:00 Test Item Value Reference Range Interpretation Comments LIPASE (test code = 0779119188) 108 U/L 0-220 Lab Interpretation (test code = Normal 48741-6) [facility] IrvingTroponin [id number] 08:39:00 Test Item Value Reference Range Interpretation Comments TROPONIN I (test <0.012 See_Comment [Automated code = 8381594704) message] The system which generated this result transmitted reference range : <=0.034 ng/mL. The reference range was not used to interpr et this result as normal/abnormal . TRISTON (test code = Equal or Less than TRISTON) 0.034 ng/ml---Normal ?Note: Cardiac troponin begins to rise 3-4 hours after the onset of ischemia. Repeat in 4-6 hours if the sample was drawn within 3-4 hours of the onset of the symptom and found normal. Between 0.035 and 0.120 ng/mL--- Borderline. Questionable myocardial injury or necrosis ? ?Note: Serial measurement may be necessary to confirm or exclude the diagnosis of myocardial injury or necrosis; Clinical correlation (symptoms, EKGs, imaging studies, and others) required; Repeat in 4-6 hours if clinically indicated. ? Equal or Higher than 0.121 ng/mL---Abnormal. Myocardial Injury or Necrosis Likely ? Biotin has been reported to cause a negative bias, interpret results relative to patient's use of biotin. ? Lab Interpretation Normal (test code = 12290-5) [facility] (NA, K, CL, CO2, GLUCOSE, BUN, CREATININE, CA)2020-05-18 08:39:00 Test Item Value Reference Range Interpretation Comments NA (test code = 138 mmol/L 135-145 4219159326) K (test code = 3.9 mmol/L 3.5-5 5397063605) CL (test code = 105 mmol/L 98-108 0962618100) CO2 TOTAL (test code = 24 mmol/L 23-31 0822436709) AGAP (test code = 2-16 1525383550) BUN (test code = 13 mg/dL 7-23 9745628228) GLUCOSE (test code = 103 mg/dL 70-110 3059972641) CREATININE (test code 0.78 mg/dL 0.5-1.04 = 1839714353) CALCIUM (test code = 8.9 mg/dL 8.6-10.6 1811448582) eGFR Calculation mL/min/1.73m2 (Non-) (test code = 5516544840) eGFR Calculation mL/min/1.73m2 () (test code = 9579032377) TRISTON (test code = TRISTON) Association of Glomerular Filtration Rate (GFR) and Staging of Kidney Disease* + -+ + ---+| GFR (mL/min/1.73 m2) ?| With Kidney Damage ?| ?Without Kidney Damage+ -------+ ------+ ---------+| ?>90 ?| ?Stage one ?| ? Normal ?+ --+ -+ ----+| ?60-89 ?| ?Stage two ?| ? Decreased GFR ? + -+ + ---+| ?30-59 ?| ?Stage three ?| ? Stage three ? + -+ + ---+| ?15-29 ?| ?Stage four ? | ? Stage four ?+ --+ -+ ----+| ?<15 (or dialysis) ? ?| ?Stage five ? | ? Stage five ?+ --+ -+ ----+ *Each stage assumes the associated GFR level has been in effect for at least three months. ?Stages 1 to 5, with or without kidney disease, indicate chronic kidney disease. Notes: Determination of stages one and two (with eGFR >59mL/min/1.73 m2) requires estimation of kidney damage for at least three months as defined by structural or functional abnormalities of the kidney, manifested by either:Pathological abnormalities or Markers of kidney damage (including abnormalities in the composition of the blood or urine or abnormalities in imaging tests). [facility] Irving[facility] [id number] 08:39:00 Test Item Value Reference Range Interpretation Comments LIPASE (test code = 4664834286) 108 U/L 0-220 Lab Interpretation (test code = Normal 09625-4) [facility] IrvingTroponin [id number] 08:39:00 Test Item Value Reference Range Interpretation Comments TROPONIN I (test <0.012 See_Comment [Automated code = 8027722130) message] The system which generated this result transmitted reference range : <=0.034 ng/mL. The reference range was not used to interpr et this result as normal/abnormal . TRISTON (test code = Equal or Less than TRISTON) 0.034 ng/ml---Normal ?Note: Cardiac troponin begins to rise 3-4 hours after the onset of ischemia. Repeat in 4-6 hours if the sample was drawn within 3-4 hours of the onset of the symptom and found normal. Between 0.035 and 0.120 ng/mL--- Borderline. Questionable myocardial injury or necrosis ? ?Note: Serial measurement may be necessary to confirm or exclude the diagnosis of myocardial injury or necrosis; Clinical correlation (symptoms, EKGs, imaging studies, and others) required; Repeat in 4-6 hours if clinically indicated. ? Equal or Higher than 0.121 ng/mL---Abnormal. Myocardial Injury or Necrosis Likely ? Biotin has been reported to cause a negative bias, interpret results relative to patient's use of biotin. ? Lab Interpretation Normal (test code = 19320-6) [facility] with [id number] 08:09:00 Test Item Value Reference Range Interpretation Comments WBC (test code = See_Comment H [Automated 9004-2) message] The sy stem which generated this result transmitted reference range : 4.30 - 11.10 10*3/?L. The reference range was not used to interpret this result as normal/abnormal . RBC (test code = See_Comment [Automated 819-8) message] The sy stem which generated this result transmitted reference range : 3.93 - 5.25 10*6/?L. The reference range was not used to interpret this result as normal/abnormal . HGB (test code = 12.8 g/dL 11.6-15 718-7) HCT (test code = 40.3 % 35.7-45.2 4544-3) MCV (test code = 92.4 fL 80.6-95.5 787-2) MCH (test code = 29.4 pg 25.9-32.8 785-6) MCHC (test code = 31.8 g/dL 31.6-35.1 786-4) RDW-SD (test code = 40.8 fL 39-49.9 92707-6) RDW-CV (test code = 11.9 % 12-15.5 L 788-0) PLT (test code = See_Comment [Automated 857-3) message] The sy stem which generated this result transmitted reference range : 166 - 358 10*3/ ?L. The reference r dejuan was not used to interpret this result as normal/abnormal . MPV (test code = 12.2 fL 9.5-12.9 28607-2) NRBC/100 WBC (test See_Comment [Automat ed code = 9041869445) message] The system which generated this result transmitted reference range : 0.0 - 10.0 /100 WBCs. The refer ence range was not u sed to interpret th is result as normal/abnormal . NRBC x10^3 (test code <0.01 See_Comment [Auto mated = 4201406961) message] The s ystem which generated this result transmitted reference range : 10*3/?L. The reference range was not used to interpret this result as normal/abnormal . GRAN MAT (NEUT) % 73.1 % (test code = 770-8) IMM GRAN % (test code 0.40 % = 6336822371) LYMPH % (test code = 20.3 % 736-9) MONO % (test code = 3.7 % 5905-5) EOS % (test code = 2.1 % 713-8) BASO % (test code = 0.4 % 706-2) GRAN MAT x10^3(ANC) 8.18 10*3/uL 1.88-7.09 H (test code = 2593189455) IMM GRAN x10^3 (test 0.05 10*3/uL 0-0.06 code = 0071948310) LYMPH x10^3 (test code 2.28 10*3/uL 1.32-3.29 = 731-0) MONO x10^3 (test code 0.42 10*3/uL 0.33-0.92 = 742-7) EOS x10^3 (test code = 0.23 10*3/uL 0.03-0.39 711-2) BASO x10^3 (test code 0.05 10*3/uL 0.01-0.07 = 704-7) Lab Interpretation Abnormal (test code = 15079-5) [facility] with [id number] 08:09:00 Test Item Value Reference Range Interpretation Comments WBC (test code = See_Comment H [Automated 6690-2) message] The sy stem which generated this result transmitted reference range : 4.30 - 11.10 10*3/?L. The reference range was not used to interpret this result as normal/abnormal . RBC (test code = See_Comment [Automated 789-8) message] The sy stem which generated this result transmitted reference range : 3.93 - 5.25 10*6/?L. The reference range was not used to interpret this result as normal/abnormal . HGB (test code = 12.8 g/dL 11.6-15 718-7) HCT (test code = 40.3 % 35.7-45.2 4544-3) MCV (test code = 92.4 fL 80.6-95.5 787-2) MCH (test code = 29.4 pg 25.9-32.8 785-6) MCHC (test code = 31.8 g/dL 31.6-35.1 786-4) RDW-SD (test code = 40.8 fL 39-49.9 06198-3) RDW-CV (test code = 11.9 % 12-15.5 L 788-0) PLT (test code = See_Comment [Automated 777-3) message] The sy stem which generated this result transmitted reference range : 166 - 358 10*3/ ?L. The reference r dejuan was not used to interpret this result as normal/abnormal . MPV (test code = 12.2 fL 9.5-12.9 05744-5) NRBC/100 WBC (test See_Comment [Automat ed code = 3868601458) message] The system which generated this result transmitted reference range : 0.0 - 10.0 /100 WBCs. The refer ence range was not u sed to interpret th is result as normal/abnormal . NRBC x10^3 (test code <0.01 See_Comment [Auto mated = 8425769855) message] The s ystem which generated this result transmitted reference range : 10*3/?L. The reference range was not used to interpret this result as normal/abnormal . GRAN MAT (NEUT) % 73.1 % (test code = 770-8) IMM GRAN % (test code 0.40 % = 9471802365) LYMPH % (test code = 20.3 % 736-9) MONO % (test code = 3.7 % 5905-5) EOS % (test code = 2.1 % 713-8) BASO % (test code = 0.4 % 706-2) GRAN MAT x10^3(ANC) 8.18 10*3/uL 1.88-7.09 H (test code = 0074219683) IMM GRAN x10^3 (test 0.05 10*3/uL 0-0.06 code = 0475623558) LYMPH x10^3 (test code 2.28 10*3/uL 1.32-3.29 = 731-0) MONO x10^3 (test code 0.42 10*3/uL 0.33-0.92 = 742-7) EOS x10^3 (test code = 0.23 10*3/uL 0.03-0.39 711-2) BASO x10^3 (test code 0.05 10*3/uL 0.01-0.07 = 704-7) Lab Interpretation Abnormal (test code = 86140-8) [facility] IrvingBIOPHYS[facility] PROFILE WITH NON-STRESS TEST 2020-04-18 19:57:52NST: 130, moderate variability, +accels, no decelsBPP 02/03Toco: quiescentUnSt. Luke[facility] CenterP[facility]INALYSIS W/O SPECIFIC [id number] 01:12:00 Test Item Value Reference Range Interpretation Comments POCT PH U (test code = 3254) na 5-8 POCT U LEUK EST (test code = 3263) na Negative - Negative POCT U NIT (test code = 3262) na Negative - Negative POCT U PROT (test code = 3259) neg Negative - Negative POCT U GLU (test code = 3256) neg Negative - Negative POCT U KETONE (test code = 3258) na Negative - Negative POCT U BLD (test code = 3257) na Negative - Negative [facility] NON-STRESS [id number] 01:04:39 Reactive and reassuringToco quiescent Ladonna Leyva MD ?04/16/2020 ?7:04 PM [facility] NON-STRESS [id number] 01:37:59 Reactive and reassuringToco quiescent Ladonna Leyva MD ?04/12/2020 ?7:37 PM [facility] NON-STRESS [id number] 22:01:18 Reactive and reassuring NSTUnSt. Luke[facility] CenterFETAL NON-STRESS [id number] 22:09:20NST reactive and reassuringUnChildren's Hospital & Medical CenterTAL NON-STRESS [id number] 22:09:20NST reactive and reassuring [facility] Irving[facility] NON-STRESS [id number] 22:07:24 Reactive and reassuringToco quiescent Ladonna Leyva MD ?03/21/2020 ?4:07 PM [facility] IrvingCONSENT TO CONTACT FOR VOLUNTARY RESEARCH 2019-12-06 16:09:25 Test Item Value Reference Range Interpretation Comments Consent To Contact For Voluntary Yes Research (test code = 4947) [facility] IrvingURINALYSIS2020-08-03 23:39:00 Test Item Value Reference Range Interpretation Comments APPEARANCE (test code = Hazy Clear A 6550304867) COLOR (test code = Yellow Yellow 1049015072) PH (test code = 4.8-8.0 8003825534) SP GRAVITY (test code = 1.003-1.030 7848177827) GLU U QUAL (test code = Normal Normal 6251774362) BLOOD (test code = Negative Negative 3021666269) KETONES (test code = 5 mg/dL Negative A 2846270501) PROTEIN (test code = Negative Negative 2887-8) UROBILIN (test code = Normal Normal 2069978269) BILIRUBIN (test code = Negative Negative 5432721985) NITRITE (test code = Negative Negative 4500251150) LEUK VAHID (test code = Negative Negative 6860222349) RBC/HPF (test code = See_Comment [Autom ated message] 1484756264) The system [employer] generated this result transmitted ref erence range: 0 - 3 HP F. The reference range was not used to int erpret this result as normal/abnormal . WBC/HPF (test code = See_Comment [Autom ated message] 5077747965) The system [employer] generated this result transmitted ref erence range: 0 - 5 HP F. The reference range was not used to int erpret this result as normal/abnormal . BACTERIA (test code = Moderate Negative A 9182729050) MUCOUS (test code = Slight Negative LPF A 6482995595) SQ EPITH (test code = HPF 3651474601) Lab Interpretation (test Abnormal code = 09152-4) [facility]. METABOLIC PANEL (13617)2019-11-28 22:30:00 Test Item Value Reference Range Interpretation Comments NA (test code = 133 mmol/L 135-145 L 7228653232) K (test code = 3.8 mmol/L 3.5-5 5022273674) CL (test code = 107 mmol/L 98-108 6938475667) CO2 TOTAL (test code = 23 mmol/L 23-31 6647332522) AGAP (test code = 2-16 4266295810) BUN (test code = 2 mg/dL 7-23 L 3126612986) GLUCOSE (test code = 81 mg/dL 70-110 3562852393) CREATININE (test code = 0.34 mg/dL 0.5-1.04 L 2045753692) TOTAL BILI (test code = 0.6 mg/dL 0.1-1.0 2054447615) CALCIUM (test code = 9.0 mg/dL 8.6-10.6 5704010479) T PROTEIN (test code = 6.2 g/dL 6.3-8.2 L 5479118732) ALBUMIN (test code = 3.2 g/dL 3.5-5 L 3008916280) ALK PHOS (test code = 82 U/L 34-122 8066672898) ALTv (test code = 12 U/L 5-35 1742-6) AST(SGOT) (test code = 17 U/L 13-40 7616563945) eGFR Calculation mL/min/1.73m2 (Non-) (test code = 3173419420) eGFR Calculation mL/min/1.73m2 () (test code = 7275443339) TRISTON (test code = TRISTON) Association of Glomerular Filtration Rate (GFR) and Staging of Kidney Disease* + --+ --+ ------+| GFR (mL/min/1.73 m2) ?| With Kidney Damage ?| ?Without Kidney Damage+ --------+ --------+ +| ?>90 ?| ?Stage one ?| ? Normal ?+ ---+ ---+ -------+| ?60-89 ?| ?Stage two ?| ? Decreased GFR ? + --+ --+ ------+| ?30-59 ?| ?Stage three ?| ? Stage three ? + --+ --+ ------+| ?15-29 ?| ?Stage four ? | ? Stage four ?+ ---+ ---+ -------+| ?<15 (or dialysis) ? ?| ?Stage five ? | ? Stage five ?+ ---+ ---+ -------+ *Each stage assumes the associated GFR level has been in effect for at least three months. ?Stages 1 to 5, with or without kidney disease, indicate chronic kidney disease. Notes: Determination of stages one and two (with eGFR >59mL/min/1.73 m2) requires estimation of kidney damage for at least three months as defined by structural or functional abnormalities of the kidney, manifested by either:Pathological abnormalities or Markers of kidney damage (including abnormalities in the composition of the blood or urine or abnormalities in imaging tests). Lab Interpretation Abnormal (test code = 81314-6) [facility] WITH [id number] 21:54:00 Test Item Value Reference Range Interpretation Comments WBC (test code = See_Comment H [Automated 2057-2) message] The sy stem which generated this result transmitted reference range : 4.30 - 11.10 10*3/?L. The reference range was not used to interpret this result as normal/abnormal . RBC (test code = See_Comment [Automated 245-8) message] The sy stem which generated this result transmitted reference range : 3.93 - 5.25 10*6/?L. The reference range was not used to interpret this result as normal/abnormal . HGB (test code = 13.0 g/dL 11.6-15 718-7) HCT (test code = 37.6 % 35.7-45.2 4544-3) MCV (test code = 91.0 fL 80.6-95.5 787-2) MCH (test code = 31.5 pg 25.9-32.8 785-6) MCHC (test code = 34.6 g/dL 31.6-35.1 786-4) RDW-SD (test code = 39.8 fL 39-49.9 11150-1) RDW-CV (test code = 12.0 % 12-15.5 788-0) PLT (test code = See_Comment [Automated 777-3) message] The sy stem which generated this result transmitted reference range : 166 - 358 10*3/ ?L. The reference r dejuan was not used to interpret this result as normal/abnormal . MPV (test code = 11.1 fL 9.5-12.9 89106-4) NRBC/100 WBC (test See_Comment [Automat ed code = 8412017040) message] The system which generated this result transmitted reference range : 0.0 - 10.0 /100 WBCs. The refer ence range was not u sed to interpret th is result as normal/abnormal . NRBC x10^3 (test code <0.01 See_Comment [Auto mated = 4437765183) message] The s ystem which generated this result transmitted reference range : 10*3/?L. The reference range was not used to interpret this result as normal/abnormal . GRAN MAT (NEUT) % 78.1 % (test code = 770-8) IMM GRAN % (test code 0.60 % = 0292287918) LYMPH % (test code = 14.5 % 736-9) MONO % (test code = 4.8 % 5905-5) EOS % (test code = 1.7 % 713-8) BASO % (test code = 0.3 % 706-2) GRAN MAT x10^3(ANC) 8.84 10*3/uL 1.88-7.09 H (test code = 1509034460) IMM GRAN x10^3 (test 0.07 10*3/uL 0-0.06 H code = 4467497330) LYMPH x10^3 (test code 1.64 10*3/uL 1.32-3.29 = 731-0) MONO x10^3 (test code 0.54 10*3/uL 0.33-0.92 = 742-7) EOS x10^3 (test code = 0.19 10*3/uL 0.03-0.39 711-2) BASO x10^3 (test code 0.03 10*3/uL 0.01-0.07 = 704-7) Lab Interpretation Abnormal (test code = 90016-1) [facility] URINALYSIS W/O SPECIFIC [id number] 14:11:00 Test Item Value Reference Range Interpretation Comments POCT PH U (test code = 3254) 6 mg/dl 5-8 POCT U LEUK EST (test code = Trace Negative - Negative 3263) POCT U NIT (test code = 3262) Neg Negative - Negative POCT U PROT (test code = 3259) Trace Negative - Negative POCT U GLU (test code = 3256) Neg Negative - Negative POCT U KETONE (test code = 3258) None Negative - Negative POCT U BLD (test code = 3257) Neg Negative - Negative [facility] URINALYSIS W/O SPECIFIC [id number] 14:11:00 Test Item Value Reference Range Interpretation Comments POCT PH U (test code = 3254) 6 mg/dl 5-8 POCT U LEUK EST (test code = Trace Negative - Negative 3263) POCT U NIT (test code = 3262) Neg Negative - Negative POCT U PROT (test code = 3259) Trace Negative - Negative POCT U GLU (test code = 3256) Neg Negative - Negative POCT U KETONE (test code = 3258) None Negative - Negative POCT U BLD (test code = 3257) Neg Negative - Negative [facility] [id number] 14:10:00 Test Item Value Reference Range Interpretation Comments POCT PREG (test code = 1605) Positive On board controls acceptable with C Yes Line (test code = 3574) POCT PREG LOT # (test code = 3575) POCT PREG TEST DATE (test code = 3576) [facility] [id number] 14:10:00 Test Item Value Reference Range Interpretation Comments POCT PREG (test code = 1605) Positive On board controls acceptable with C Yes Line (test code = 3574) POCT PREG LOT # (test code = 3575) POCT PREG TEST DATE (test code = 3576) [facility] ANTIGEN WITH HIV-1/2 [id number] 16:26:00 Test Item Value Reference Range Interpretation Comments HIV-1 ANTIGEN WITH HIV 1\\T\\2 Nonreactive Nonreactive ANTIBODY (2) (BEAKER) (test code = 2586) BASIC METABOLIC [id number] 06:30:00 Test Item Value Reference Range Interpretation [...] m DATA TO CALCULA TE ESTIMATED GFR. [id number] 06:19:00 Test Item Value Reference Range Interpretation Comments PHOSPHORUS (BEAKER) (test code = 1.9 mg/dL 2.3-4.7 L 604) [id number] 06:19:00 Test Item Value Reference Range Interpretation Comments MAGNESIUM (BEAKER) (test code = 1.8 mg/dL 1.6-2.6 627) HEPATIC FUNCTION [id number] 06:19:00 Test Item Value Reference Range Interpretation [...] 6-55 347) CBC W/PLT COUNT & AUTO [id number] 06:11:00 Test Item Value Reference Range Interpretation [...] (BEAKER) (test code = 2801) BASIC METABOLIC [id number] 10:11:00 Test Item Value Reference Range Interpretation [...] m DATA TO CALCULA TE ESTIMATED GFR. [id number] 09:56:00 Test Item Value Reference Range Interpretation Comments PHOSPHORUS (BEAKER) (test code = 1.6 mg/dL 2.3-4.7 L 604) [id number] 09:56:00 Test Item Value Reference Range Interpretation Comments MAGNESIUM (BEAKER) (test code = 2.0 mg/dL 1.6-2.6 627) HEPATIC FUNCTION [id number] 09:56:00 Test Item Value Reference Range Interpretation [...] 6-55 347) CBC W/PLT COUNT & AUTO [id number] 09:53:00 Test Item Value Reference Range Interpretation [...] % 0-1 PERCENT (BEAKER) (test code = 2801)"
[2021-04-15] MEDS ORDERED: HYDROCODONE/APAP 10/325 TAB ONE (22:07)
--- NOTE | 2021-04-15 23:29 | ER ---
Nurse's Notes [facility] Name: Elle Man Age: 30 yrs Sex: Female : 1990 Arrival Date: 04/15/2021 Time: 21:52 Bed 6 Private MD: Diagnosis: Sprain of unspecified ligament of right ankle Presentation: 04/15 21:53 Chief complaint: EMS states: toned out to robe's, pt was leaving restaurant and ld1 twisted right ankle. Coronavirus screen: At this time, the client does not indicate any symptoms associated with coronavirus-19. Ebola Screen: No symptoms or risks identified at this time. Initial Sepsis Screen: Does the patient meet any 2 criteria? No. Patient's initial sepsis screen is negative. Does the patient have a suspected source of infection? No. Patient's initial sepsis screen is negative. Risk Assessment: Do you want to hurt yourself or someone else? Patient reports no desire to harm self or others. Onset of symptoms was April 15, 2021. 21:53 Method Of Arrival: EMS: [facility] ld1 21:53 Acuity: [place] 4 ld1 Triage Assessment: 21:53 General: Appears in no apparent distress. uncomfortable, Behavior is calm, cooperative, ld1 appropriate for age. Pain: Complains of pain in anterior aspect of right ankle and dorsum of right foot Pain does not radiate. Pain currently is 10 out of 10 on a pain scale. Quality of pain is described as shooting, stabbing, throbbing, Pain began suddenly, Is continuous. Musculoskeletal: Range of motion: limited in right ankle Reports pain in anterior aspect of right ankle. 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 - Social history:: Smoking status: Patient denies any tobacco usage or history of. Patient/guardian denies using alcohol. Screenin:28 Abuse screen: Denies threats or abuse. Nutritional screening: No deficits noted. favian Tuberculosis screening: No symptoms or risk factors identified. Fall Risk None identified. Assessment: 22:24 General: Appears uncomfortable, obese. Pain: Complains of pain in right foot and dorsum favian of right foot Pain began 1 hour ago. Neuro: No deficits noted. Cardiovascular: No deficits noted. Respiratory: No deficits noted. Musculoskeletal: Swelling Swelling to right ankle. Pt states,"...I slipped about an hour ago...yes, leaving the restaurant...I was just picking up some soup...I just rolled it...". 04/16 00:06 Reassessment: Patient appears in no apparent distress at this time. No changes from tw5 previously documented assessment. Patient denies pain at this time. Patient states feeling better. Patient states symptoms have improved. Vital Signs: 04/15 22:23 BP 115 / 71; Pulse 75; Resp 18; Pulse Ox 98% ; Weight 117.93 kg; Height 5 ft. 11 in. favian (180.34 cm); Pain 9/10; 04/16 00:06 Pain 0/10; tw5 00:06 BP 115 / 54; Pulse 17; Resp 18; Pulse Ox 100% on R/A; tw5 04/15 22:23 Body Mass Index 36.26 (117.93 kg, 180.34 cm) favian ED Course: 04/15 21:52 Patient arrived in ED. ja2 21:53 Triage completed. ld1 21:53 Arm band placed on right wrist. ld1 21:55 Trip Alvarez NP is PHCP. pm1 21:55 Torsten Sánchez MD is Attending Physician. pm1 22:05 Jeana Mannnig is Primary Nurse. tw5 22:29 No provider procedures requiring assistance completed. Patient did not have IV access favian during this emergency room visit. 22:33 Patient has correct armband on for positive identification. Bed in low position. Call favian light in reach. Side rails up X 1. Pulse ox on. NIBP on. Door closed. Lights dimmed. Moved to private room. Warm blanket given. Ice pack to injury. Verbal reassurance given. 22:35 Awaiting re-evaluation by ER provider. favian 22:50 Ankle Right 3 View XRAY In Process Unspecified. EDMS 23:28 Rahat Rosenberg MD is Referral Physician. pm1 23:55 Orthoglass splint: stirrup splint applied on right leg. ds4 04/16 00:21 Primary Nurse role handed off by Jeana Manning tw5 00:22 Jeana Manning is Primary Nurse. tw5 00:40 Orthoglass splint: stirrup splint applied on right leg. favian Administered Medications: 04/15 22:23 Drug: [place] (HYDROcodone-acetaminophen) 10 mg-325 mg 1 tabs Route: PO; favian 04/16 00:06 Follow up: Pain 0/10 Adult; Response: No adverse reaction; Pain is decreased; RASS: tw5 Alert and Calm (0) 00:40 Drug: Ketorolac 60 mg Route: IM; Site: right gluteus; favian Outcome: 04/15 23:29 Discharge ordered by . pm1 04/16 00:05 Discharged to home with crutches, with family. tw5 Condition: improved Discharge instructions given to patient, Instructed on discharge instructions, follow up and referral plans. no driving heavy equipment, medication usage, crutch walking, Demonstrated understanding of instructions, follow-up care, medications, Prescriptions given X 1. 00:06 Patient left the ED. tw5 00:48 Patient left the ED. pm1 Signatures: Dispatcher [employer] EDMS Joce Tovar ds4 Trip Alvarez, [employer] pm1 Elle Lamar, ISIDRO RN ld1 Jeane Romano2 Jeana aMnning tw5 Lisa Melgar RN RN bo
--- NOTE | 2021-04-15 23:29 | EDPHYS ---
Physician Documentation [facility] Name: Elle Man Age: 30 yrs Sex: Female : 1990 Arrival Date: 04/15/2021 Time: 21:52 Bed 6 Private MD: ED Physician Torsten Sánchez HPI: 04/15 23:28 This 30 yrs old Female presents to ER via EMS with complaints of Ankle Injury. pm1 23:28 The patient presents with pain, swelling. The complaints affect the right ankle. Onset: pm1 The symptoms/episode began/occurred just prior to arrival. Context: The problem was sustained outdoors, The mechanism of injury involved inversion of the affected ankle. The patient is unable to bear weight. Associated signs and symptoms: Pertinent positives: swelling, Pertinent negatives: numbness, tingling. Modifying factors: The symptoms are alleviated by elevation of extremity, the symptoms are aggravated by weight bearing, movement. Severity of symptoms: in the emergency department the symptoms are unchanged. The patient has not experienced similar symptoms in the past. The patient has not recently seen a physician. 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 - Social history:: Smoking status: Patient denies any tobacco usage or history of. Patient/guardian denies using alcohol. ROS: 23:28 Constitutional: Negative for fever, chills, and weight loss, Cardiovascular: Negative pm1 for chest pain, palpitations, and edema, Respiratory: Negative for shortness of breath, cough, wheezing, and pleuritic chest pain. 23:28 Skin: Negative for injury, rash, and discoloration, Neuro: Negative for headache, weakness, numbness, tingling, and seizure. 23:28 MS/extremity: Positive for pain, swelling, tenderness, of the right ankle. 23:28 All other systems are negative. Exam: 23:28 Constitutional: This is a well developed, well nourished patient who is awake, alert, pm1 and in no acute distress. Head/Face: Normocephalic, atraumatic. 23:28 Skin: Warm, dry with normal turgor. Normal color with no rashes, no lesions, and no evidence of cellulitis. 23:28 Cardiovascular: Exam negative for acute changes, Rate: normal, Rhythm: regular, Pulses: no pulse deficits are appreciated. 23:28 Respiratory: Exam negative for acute changes, respiratory distress, shortness of breath. 23:28 Musculoskeletal/extremity: Extremities: grossly normal except: noted in the lateral aspect of right ankle: swelling, tenderness, There is no evidence of decreased ROM, deformity. 23:28 Neuro: Exam negative for acute changes, Orientation: is normal, Mentation: is normal, Motor: is normal, moves all fours. Vital Signs: 22:23 BP 115 / 71; Pulse 75; Resp 18; Pulse Ox 98% ; Weight 117.93 kg; Height 5 ft. 11 in. favian (180.34 cm); Pain 9/10; 04/16 00:06 Pain 0/10; tw5 00:06 BP 115 / 54; Pulse 17; Resp 18; Pulse Ox 100% on R/A; tw5 04/15 22:23 Body Mass Index 36.26 (117.93 kg, 180.34 cm) favian MDM: 04/15 22:24 Patient medically screened. pm1 23:28 Data reviewed: vital signs. Data interpreted: Pulse oximetry: on room air is 98 %. pm1 Interpretation: normal. Counseling: I had a detailed discussion with the patient and/or guardian regarding: the historical points, exam findings, and any diagnostic results supporting the discharge/admit diagnosis, radiology results, the need for outpatient follow up, to return to the emergency department if symptoms worsen or persist or if there are any questions or concerns that arise at home. 04/15 22:01 Order name: Ankle Right 3 View XRAY pm1 04/15 23:28 Order name: Splint - Ankle: Orthoglass: Stirrup; Complete Time: 23:55 pm1 04/15 23:28 Order name: Crutches; Complete Time: 23:55 pm1 Administered Medications: 22:23 Drug: [place] (HYDROcodone-acetaminophen) 10 mg-325 mg 1 tabs Route: PO; favian 04/16 00:06 Follow up: Pain 0/10 Adult; Response: No adverse reaction; Pain is decreased; RASS: tw5 Alert and Calm (0) 00:40 Drug: Ketorolac 60 mg Route: IM; Site: right gluteus; favian Disposition: 01:30 Co-signature as Attending Physician, Torsten Sánchez MD I agree with the assessment and kdr plan of care. Disposition Summary: 04/15/21 23:29 Discharge Ordered Location: Home pm1 Problem: new pm1 Symptoms: have improved pm1 Condition: Stable pm1 Diagnosis - Sprain of unspecified ligament of right ankle pm1 Followup: pm1 - With: Emergency Department - When: As needed - Reason: Worsening of condition Followup: pm1 - With: Rahat Rosenberg MD - When: 2 - 3 days - Reason: Recheck today's complaints, Continuance of care, Re-evaluation by your physician Discharge Instructions: - Discharge Summary Sheet pm1 - Ankle Sprain pm1 - Cast or Splint Care, Adult pm1 - Crutch Use, Adult pm1 Forms: - Medication Reconciliation Form pm1 - Thank You Letter pm1 - Antibiotic Education pm1 - Prescription Opioid Use pm1 - Work release form tw5 Prescriptions: - Tylenol-Codeine #3 300 mg-30 mg Oral - take 2 tablet by ORAL route every 6 hours As needed; 20 tablet; Refills: 0, pm1 Product Selection Permitted Signatures: Dispatcher [employer] EDMS Torsten Sánchez MD MD kdr Marinas, Patrick, NP [employer] pm1 Elle Lamar, ISIDRO RN Jeana Rodriguez tw5 Lisa Melgar RN RN bo
[2021-04-16] MEDS ORDERED: KETOROLAC 30 MG/ML INJ ONE (00:23)
[2021-04-16 00:54] VITALS: BP 115/54; O2SAT 100
--- NOTE | 2021-04-16 09:34 | RAD REPORT ---
EXAM DESCRIPTION: RAD - Ankle Right 3 View - 04/15/2021 10:50 pm CLINICAL HISTORY: Right ankle pain status post fall FINDINGS: Lateral soft tissue swelling. No fracture or dislocation seen
== END 2021-04-16 00:48 | disposition home or self-care (01) ==
LOC: ER 21:45
DX: S93.401A Sprain of unspecified ligament of right ankle, initial encounter (principal); X58.XXXA Exposure to other specified factors, initial encounter; Y92.89 Other specified places as the place of occurrence of the external cause
CPT/HCPCS: 96372; 99284

== ENCOUNTER 2021-07-07 11:39 | Emergency (ER) | payer OTHER ==
--- OUTSIDE RECORDS SUMMARY | 2021-07-07 11:47 | XMS REPORT | Continuity of Care Document ---
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 mouth [place] 00 daily. Medical Branch docusate 2019-04 Yes [id number] 240mg Take 1 U nivers calcium 240 2-30 capsule by it y of mg capsule 00:00: mouth once [place] 00 daily as Medical needed for Branch Constipati on. ferrous 2019-04 Yes [id number] 325mg Take 1 Un inés sulfate 325 2-30 tablet by ity of mg (65 mg 00:00: mouth 2 [place] iron) 00 (two) Medical tablet times Branch daily. ibuprofen 2019-04 Yes [id number] 600mg Take 1 [facility] 600 mg 2-30 tablet by ity of tablet 00:00: mouth [place] 00 every 6 Medical (six) Branch hours as needed (Pain). Take with food or milk. 2019-04 Yes [id number] 1{tbl} Take 1 [facility] vitamin 2-30 tablet by ity of w/FA tablet 00:00: mouth [place] 00 daily. Medical Branch docusate 2019-04 Yes [id number] 240mg Take 1 U nivers calcium 240 2-30 capsule by it y of mg capsule 00:00: mouth once [place] 00 daily as Medical needed for Branch Constipati on. ferrous 2019-04 Yes [id number] 325mg Take 1 Un inés sulfate 325 2-30 tablet by ity of mg (65 mg 00:00: mouth 2 [place] iron) 00 (two) Medical tablet times Branch daily. ibuprofen 2019-04 Yes [id number] 600mg Take 1 [facility] 600 mg 2-30 tablet by ity of tablet 00:00: mouth [place] 00 every 6 Medical (six) Branch hours as needed (Pain). Take with food or milk. 2019-04 Yes [id number] 1{tbl} Take 1 [facility] vitamin 2-30 tablet by ity of w/FA tablet 00:00: mouth [place] 00 daily. Medical Branch docusate 2019-04 Yes [id number] 240mg Take 1 U nivers calcium 240 2-30 capsule by it y of mg capsule 00:00: mouth once [place] 00 daily as Medical needed for Branch Constipati on. ferrous 2019-04 Yes [id number] 325mg Take 1 Un inés sulfate 325 2-30 tablet by ity of mg (65 mg 00:00: mouth 2 [place] iron) 00 (two) Medical tablet times Branch daily. ibuprofen 2019-04 Yes [id number] 600mg Take 1 [facility] 600 mg 2-30 tablet by ity of tablet 00:00: mouth [place] 00 every 6 Medical (six) Branch hours as needed (Pain). Take with food or milk. 2019-04 Yes [id number] 1{tbl} Take 1 [facility] vitamin 2-30 tablet by ity of w/FA tablet 00:00: mouth [place] 00 daily. Medical Branch docusate 2019-04 Yes [id number] 240mg Take 1 U nivers calcium 240 2-30 capsule by it y of mg capsule 00:00: mouth once [place] 00 daily as Medical needed for Branch Constipati on. ferrous 2019-04 Yes [id number] 325mg Take 1 Un inés sulfate 325 2-30 tablet by ity of mg (65 mg 00:00: mouth 2 [place] iron) 00 (two) Medical tablet times Branch daily. ibuprofen 2019-04 Yes [id number] 600mg Take 1 [facility] 600 mg 2-30 tablet by ity of tablet 00:00: mouth [place] 00 every 6 Medical (six) Branch hours as needed (Pain). Take with food or milk. 2019-04 Yes [id number] 1{tbl} Take 1 [facility] vitamin 2-30 tablet by ity of w/FA tablet 00:00: mouth [place] 00 daily. Medical Branch docusate 2019-04 Yes [id number] 240mg Take 1 U nivers calcium 240 2-30 capsule by it y of mg capsule 00:00: mouth once [place] 00 daily as Medical needed for Branch Constipati on. 2019-04- No [id number] 1{tbl} Take 1 [facility] vitamin 2-30 03-25 tablet by ity of w/FA tablet 00:00: 00:00 mouth [place] 00 :00 daily. Medical Branch docusate 2019-04- No [id number] 240mg Take 1 [facility] calcium 240 2-30 03-25 capsule by i ty of mg capsule 00:00: 00:00 mouth once [place] 00 :00 daily as Medical needed for Branch Constipati on. ferrous 2019-04- No [id number] 325mg Take 1 U nivers sulfate 325 07-19 tablet by it y of mg (65 mg 00:00: 00:00 mouth 2 [place] iron) 00 :00 (two) Medical tablet times Branch daily. ibuprofen 2019-04- No [id number] 600mg Take 1 [facility] 600 mg 07-19 tablet by ity of tablet 00:00: 00:00 mouth [place] 00 :00 every 6 Medical (six) Branch hours as needed (Pain). Take with food or milk. HYDROcodone 2019-04- No [id number] 1{tbl} Take 1 U nivers -acetaminop 05-03 tablet by it y of hen 5-325 00:00: 05:59 mouth [place] mg tablet 00 :00 every 6 Medical (six) Branch hours as needed (Pain scale above 4) for up to 7 days. Do not exceed 3 grams of acetaminop hen in 24 hours. Indication s: acute pain 2019-04 Yes Take by Unive rs 25/iron 1-25 mouth. ity of fum/folic/d 21:30: [place] [id number] Medical (-1 Branch ORAL) 2019-04 Yes Take by Unive rs 25/iron 1-25 mouth. ity of fum/folic/d 21:30: [place] [address] Medical (-1 Branch ORAL) 2020 Yes Take by Unive rs 25/iron 1-25 mouth. ity of fum/folic/d 21:30: [place] [address] Medical (-1 Branch ORAL) 2020 Yes Take by Unive rs 25/iron 1-25 mouth. ity of fum/folic/d 21:30: [place] [address] Medical (-1 Branch ORAL) 2020- Yes Take by Unive rs 25/iron 1-25 mouth. ity of fum/folic/d 21:30: [place] [address] Medical (-1 Branch ORAL) 2020 Yes Take by Unive rs 25/iron 1-25 mouth. ity of fum/folic/d 21:30: [place] [address] Medical (-1 Branch ORAL) 2020 Yes Take by Unive rs 25/iron 1-25 mouth. ity of fum/folic/d 21:30: [place] [address] Medical (-1 Branch ORAL) 2020 Yes Take by Unive rs 25/iron 1-25 mouth. ity of fum/folic/d 21:30: [place] [address] Medical (-1 Branch ORAL) 2020 Yes Take by Unive rs 25/iron 1-25 mouth. ity of fum/folic/d 21:30: [place] [address] Medical (-1 Branch ORAL) 2020 Yes Take by Unive rs 25/iron 1-25 mouth. ity of fum/folic/d 21:30: [place] [address] Medical (-1 Branch ORAL) 2020 Yes Take by Unive rs 25/iron 1-25 mouth. ity of fum/folic/d 21:30: [place] [address] Medical (-1 Branch ORAL) PNV 2019-04 Yes [id number] Take 1 [facility] 102-iron-fo 0-20 TAB-CAP/M2 it y of late-dha 00:00: by mouth [place] (VITAFOL FE 00 daily. Medica l PLUS) 90 mg Branch iron- 1 mg-200 mg Cap PNV 2020 Yes [id number] Take 1 [facility] 102-iron-fo 0-20 TAB-CAP/M2 it y of late-dha 00:00: by mouth [place] (VITAFOL FE 00 daily. Medica l PLUS) 90 mg Branch iron- 1 mg-200 mg Cap PNV 2019-04 Yes [id number] Take 1 [facility] 102-iron-fo 0-20 TAB-CAP/M2 it y of late-dha 00:00: by mouth [place] (VITAFOL FE 00 daily. Medica l PLUS) 90 mg Branch iron- 1 mg-200 mg Cap PNV 2020 Yes [id number] Take 1 [facility] 102-iron-fo 0-20 TAB-CAP/M2 it y of late-dha 00:00: by mouth [place] (VITAFOL FE 00 daily. Medica l PLUS) 90 mg Branch iron- 1 mg-200 mg Cap PNV 2020 Yes [id number] Take 1 [facility] 102-iron-fo 0-20 TAB-CAP/M2 it y of late-dha 00:00: by mouth [place] (VITAFOL FE 00 daily. Medica l PLUS) 90 mg Branch iron- 1 mg-200 mg Cap PNV 2019-04 Yes [id number] Take 1 [facility] 102-iron-fo 0-20 TAB-CAP/M2 it y of late-dha 00:00: by mouth [place] (VITAFOL FE 00 daily. Medica l PLUS) 90 mg Branch iron- 1 mg-200 mg Cap PNV 2019-04 Yes [id number] Take 1 [facility] 102-iron-fo 0-20 TAB-CAP/M2 it y of late-dha 00:00: by mouth [place] (VITAFOL FE 00 daily. Medica l PLUS) 90 mg Branch iron- 1 mg-200 mg Cap PNV 2019-04 2020- No [id number] Take 1 Univer s 102-iron-fo 0-20 11-25 TAB-CAP/M2 i ty of late-dha 00:00: 00:00 by mouth [place] (VITAFOL FE 00 :00 daily. Medica l PLUS) 90 mg Branch iron- 1 mg-200 mg Cap PNV 2019-04 2020- No [id number] Take 1 Univer s 102-iron-fo 0-20 11-25 TAB-CAP/M2 i ty of late-dha 00:00: 00:00 by mouth [place] (VITAFOL FE 00 :00 daily. Medica l PLUS) 90 mg Branch iron- 1 mg-200 mg Cap PNV 2019-04 2020- No [id number] Take 1 Univer s 102-iron-fo 0-20 11-25 TAB-CAP/M2 i ty of late-dha 00:00: 00:00 by mouth [place] (VITAFOL FE 00 :00 daily. Medica l PLUS) 90 mg Branch iron- 1 mg-200 mg Cap metoclopram 2020-0 Yes [id number] 10mg Take 1 [facility] levi HCl 10 8-11 tablet by ity of mg tablet 00:00: mouth [place] every 6 Medical (six) Branch hours as needed for Nausea and Vomiting (N/V). metoclopram 2020-0 Yes [id number] 10mg Take 1 [facility] levi HCl 10 8-11 tablet by ity of mg tablet 00:00: mouth [place] every 6 Medical (six) Branch hours as needed for Nausea and Vomiting (N/V). metoclopram 2020-0 Yes [id number] 10mg Take 1 [facility] levi HCl 10 8-11 tablet by ity of mg tablet 00:00: mouth [place] 00 every 6 Medical (six) Branch hours as needed for Nausea and Vomiting (N/V). metoclopram 2020-0 Yes [id number] 10mg Take 1 [facility] levi HCl 10 8-11 tablet by ity of mg tablet 00:00: mouth [place] 00 every 6 Medical (six) Branch hours as needed for Nausea and Vomiting (N/V). metoclopram 2020-0 Yes [id number] 10mg Take 1 [facility] levi HCl 10 8-11 tablet by ity of mg tablet 00:00: mouth [place] 00 every 6 Medical (six) Branch hours as needed for Nausea and Vomiting (N/V). metoclopram 2020-0 Yes [id number] 10mg Take 1 [facility] levi HCl 10 8-11 tablet by ity of mg tablet 00:00: mouth [place] 00 every 6 Medical (six) Branch hours as needed for Nausea and Vomiting (N/V). metoclopram 2020-0 2020- No [id number] 10mg Take 1 [facility] levi HCl 10 8-11 10-20 tablet by ity of mg tablet 00:00: 00:00 mouth [place] 00 :00 every 6 Medical (six) Branch hours as needed for Nausea and Vomiting (N/V). metoclopram 2019-0 2020- No 10mg 10 mg, Uni vers levi HCl 11-27 08-03 Slow IV ity of (REGLAN) 23:00: 21:59 Push, [place] injection 00 :00 ONCE, 1 Medical 10 mg dose, Mon Branch 11/28/19 at 1800, TUSHAR NaCl 0.9% 2020- No 1000mL at 999 Uni vers (NS) bolus 11-27 08-04 mL/hr, ity of infusion 21:15: 00:22 1,000 mL, [place] 1,000 mL 00 :00 IV Medical Infusion, Branch ONCE, 1 dose, [facility] 11/28/19 at 1615, TUSHAR doxylamine- 2020-0 Yes [id number] Take 2 [facility] pyridoxine, 8-03 tabs by ity o f vit B6, 00:00: mouth qhs. [place] (DICLEGIS) 00 If nausea Medi dee 10-10 mg not Branch per tablet controlled may increase to max of 4 tabs daily-1 tab in am, 1 tab mid afternoon and 2 tabs qhs doxylamine- 2020-0 Yes [id number] Take 2 [facility] pyridoxine, 8-03 tabs by ity o f vit B6, 00:00: mouth [place]hs. [place] (DICLEGIS) 00 If nausea Medi dee 10-10 mg not Branch per tablet controlled may increase to max of 4 tabs daily-1 tab in am, 1 tab mid afternoon and 2 tabs qhs doxylamine- 2020-0 Yes [id number] Take 2 [facility] pyridoxine, 8-03 tabs by ity o f vit B6, 00:00: mouth [place]. [place] (DICLEGIS) 00 If nausea Medi dee 10-10 mg not Branch per tablet controlled may increase to max of 4 tabs daily-1 tab in am, 1 tab mid afternoon and 2 tabs qhs doxylamine- 2020-0 Yes [id number] Take 2 [facility] pyridoxine, 8-03 tabs by ity o f vit B6, 00:00: mouth [place]. [place] (DICLEGIS) 00 If nausea Medi dee 10-10 mg not Branch per tablet controlled may increase to max of 4 tabs daily-1 tab in am, 1 tab mid afternoon and 2 tabs qhs doxylamine- 2020-0 Yes [id number] Take 2 [facility] pyridoxine, 8-03 tabs by ity o f vit B6, 00:00: mouth [place]. [place] (DICLEGIS) 00 If nausea Medi dee 10-10 mg not Branch per tablet controlled may increase to max of 4 tabs daily-1 tab in am, 1 tab mid afternoon and 2 tabs qhs doxylamine- 2020-0 Yes [id number] Take 2 [facility] pyridoxine, 8-03 tabs by ity o f vit B6, 00:00: mouth [place]. [place] (DICLEGIS) 00 If nausea Medi dee 10-10 mg not Branch per tablet controlled may increase to max of 4 tabs daily-1 tab in am, 1 tab mid afternoon and 2 tabs qhs doxylamine- 2020-0 Yes [id number] Take 2 [facility] pyridoxine, 8-03 tabs by ity o f vit B6, 00:00: mouth [place]. [place] (DICLEGIS) 00 If nausea Medi dee 10-10 mg not Branch per tablet controlled may increase to max of 4 tabs daily-1 tab in am, 1 tab mid afternoon and 2 tabs qhs doxylamine- 2020-0 Yes [id number] Take 2 [facility] pyridoxine, 8-03 tabs by ity o f vit B6, 00:00: mouth [place]. [place] (DICLEGIS) 00 If nausea Medi dee 10-10 mg not Branch per tablet controlled may increase to max of 4 tabs daily-1 tab in am, 1 tab mid afternoon and 2 tabs qhs doxylamine- 2020-0 2020- No [id number] Take 2 [facility] pyridoxine, 8-03 10-20 tabs by ity of vit B6, 00:00: 00:00 mouth qhs. [place] (DICLEGIS) 00 :00 If nausea Medi dee 10-10 mg not Branch per tablet controlled may increase to max of 4 tabs daily-1 tab in am, 1 tab mid afternoon and 2 tabs qhs ampicillin 2020-0 2020- No [id number] 500mg Take 1 [facility] 500 mg 7-13 07-24 capsule by ity of capsule 00:00: 04:59 mouth 4 [place] 00 :00 (four) Medical times Branch daily for 10 days. ampicillin 2020-0 2020- No [id number] 500mg Take 1 [facility] 500 mg 7-13 07-24 capsule by ity of capsule 00:00: 04:59 mouth 4 [place] 00 :00 (four) Medical times Branch daily for 10 days. proMETHazin 2020-0 Yes [id number] 25mg Take 1 [facility] e 25 mg 7-09 tablet by ity of tablet 00:00: mouth [place] 00 every 6 Medical (six) Branch hours as needed for Nausea and Vomiting (N/V). proMETHazin 2020-0 Yes [id number] 25mg Take 1 [facility] e 25 mg 7-09 tablet by ity of tablet 00:00: mouth [place] 00 every 6 Medical (six) Branch hours as needed for Nausea and Vomiting (N/V). proMETHazin 2020-0 Yes [id number] 25mg Take 1 [facility] e 25 mg 7-09 tablet by ity of tablet 00:00: mouth [place] 00 every 6 Medical (six) Branch hours as needed for Nausea and Vomiting (N/V). proMETHazin 2020-0 Yes [id number] 25mg Take 1 [facility] e 25 mg 7-09 tablet by ity of tablet 00:00: mouth [place] 00 every 6 Medical (six) Branch hours as needed for Nausea and Vomiting (N/V). proMETHazin 2020-0 Yes [id number] 25mg Take 1 [facility] e 25 mg 7-09 tablet by ity of tablet 00:00: mouth [place] 00 every 6 Medical (six) Branch hours as needed for Nausea and Vomiting (N/V). proMETHazin 2020-0 Yes [id number] 25mg Take 1 [facility] e 25 mg 7-09 tablet by ity of tablet 00:00: mouth [place] 00 every 6 Medical (six) Branch hours as needed for Nausea and Vomiting (N/V). proMETHazin 2020-0 Yes [id number] 25mg Take 1 [facility] e 25 mg 7-09 tablet by ity of tablet 00:00: mouth [place] 00 every 6 Medical (six) Branch hours as needed for Nausea and Vomiting (N/V). proMETHazin 2020-0 Yes [id number] 25mg Take 1 [facility] e 25 mg 7-09 tablet by ity of tablet 00:00: mouth [place] 00 every 6 Medical (six) Branch hours as needed for Nausea and Vomiting (N/V). proMETHazin 2020-0 Yes [id number] 25mg Take 1 [facility] e 25 mg 7-09 tablet by ity of tablet 00:00: mouth [place] 00 every 6 Medical (six) Branch hours as needed for Nausea and Vomiting (N/V). proMETHazin 2020-0 Yes [id number] 25mg Take 1 [facility] e 25 mg 7-09 tablet by ity of tablet 00:00: mouth [place] 00 every 6 Medical (six) Branch hours as needed for Nausea and Vomiting (N/V). proMETHazin 2020-0 Yes [id number] 25mg Take 1 Univers e 25 mg 7-09 tablet by ity of tablet 00:00: mouth [place] 00 every 6 Medical (six) Branch hours as needed for Nausea and Vomiting (N/V). proMETHazin 2020-0 Yes [id number] 25mg Take 1 Univers e 25 mg 7-09 tablet by ity of tablet 00:00: mouth [place] 00 every 6 Medical (six) Branch hours as needed for Nausea and Vomiting (N/V). proMETHazin 2020-0 Yes [id number] 25mg Take 1 Univers e 25 mg 7-09 tablet by ity of tablet 00:00: mouth [place] 00 every 6 Medical (six) Branch hours as needed for Nausea and Vomiting (N/V). proMETHazin 2020-0 Yes [id number] 25mg Take 1 [facility] e 25 mg 7-09 tablet by ity of tablet 00:00: mouth [place] 00 every 6 Medical (six) Branch hours as needed for Nausea and Vomiting (N/V). proMETHazin 2020-0 Yes [id number] 25mg Take 1 Univers e 25 mg 7-09 tablet by ity of tablet 00:00: mouth [place] 00 every 6 Medical (six) Branch hours as needed for Nausea and Vomiting (N/V). proMETHazin 2020-0 Yes [id number] 25mg Take 1 [facility] e 25 mg 7-09 tablet by ity of tablet 00:00: mouth [place] 00 every 6 Medical (six) Branch hours as needed for Nausea and Vomiting (N/V). proMETHazin 2020-0 Yes [id number] 25mg Take 1 [facility] e 25 mg 7-09 tablet by ity of tablet 00:00: mouth [place] 00 every 6 Medical (six) Branch hours as needed for Nausea and Vomiting (N/V). proMETHazin 2020-0 2020- No [id number] 25mg Take 1 [facility] e 25 mg 7-09 10-20 tablet by ity of tablet 00:00: 00:00 mouth [place] 00 :00 every 6 Medical (six) Branch hours as needed for Nausea and Vomiting (N/V). Acyclovir Acyclovir Yes Hossein [address] [facility] 7-25 Dylan Garciakes - 00:[facility] butalbital- Yes 1{tbl} Take 1 Un inés [...] No 1{tbl} Take 1 U nivers acetaminoph 11-02 10-20 tablet by it y of en-caff [...] times Branch daily with meals. amoxicillin 2018-0 2020- No 500mg Take 1 Un inés 500 mg 3-25 10-20 capsule by ity of capsule 00:00: 00:00 mouth 3 [place] 00 :00 (three) Medical times Branch daily. naproxen 2019- No 500mg Take 1 Unive rs 500 mg 3-25 10-20 tablet by ity of tablet 00:00: 00:00 mouth 2 [place] 00 :00 (two) Medical times Branch daily [...] Medical mg/mL (three) Branch syringe months. medroxyPROG Yes 150mg 1 mL by Un inés ESTERone 7-19 Intramuscu ity o f (DEPO-PROVE 00:00: lar route [place] RA) 150 00 every 3 Medical mg/mL (three) Branch syringe months. medroxyPROG 2020- No 150mg 1 mL by U [...] 1{tbl} Take 1 Tab Univ ers no.81-iron 0-01 11-25 by mouth ity of cbn&gluc-FA 00:00: 00:00 daily. [place] -DSS 00 :00 Medical (CITRANATAL Branch , DUAL-IRON,) 27 mg iron-1 mg -50 mg Tab PNV 2014-04 2020- No 1{tbl} Take 1 Tab Univ ers no.81-iron 0-01 11-25 by mouth ity of cbn&gluc-FA 00:00: 00:00 daily. [place] -DSS 00 :00 Medical (CITRANATAL Branch , DUAL-IRON,) 27 mg iron-1 mg -50 mg Tab PNV 2014-04 2020- No 1{tbl} Take 1 Tab Univ ers no.81-iron 003-21 by mouth ity of cbn&gluc-FA 00:00: 00:00 daily. [place] -DSS 00 :00 Medical (CITRANATAL Branch , DUAL-IRON,) 27 mg iron-1 mg -50 mg Tab No known No Univers medications ity of [facility] Immunizations Ordered Filled Immunization Date Status Comments [facility] e Immunization Name Name TDAP 2020-02-14 Completed University of 00:00:00 [facility] Influenza Virus 2020-02-14 Completed Universit y of Vaccine Quad .5 mL 00:00:00 [facility] 6+ MO Branch TDAP 2020-02-14 Completed University of 00:00:00 [facility] Influenza Virus 2020-02-14 Completed Universit y of Vaccine Quad .5 mL 00:00:00 [facility] 6+ MO Branch TDAP 2020-02-14 Completed University of 00:00:00 [facility] Influenza Virus 2020-02-14 Completed Universit y of Vaccine Quad .5 mL 00:00:00 [facility] 6+ MO Branch TDAP 2020-02-14 Completed University of 00:00:00 [facility] Influenza Virus 2020-02-14 Completed Universit y of Vaccine Quad .5 mL 00:00:00 [facility] 6+ MO Branch TDAP 2020-02-14 Completed University of 00:00:00 [facility] Influenza Virus 2020-02-14 Completed Universit y of Vaccine Quad .5 mL 00:00:00 [facility] 6+ MO Branch TDAP 2020-02-14 Completed University of 00:00:00 [facility] Influenza Virus 2020-02-14 Completed Universit y of Vaccine Quad .5 mL 00:00:00 [facility] 6+ MO Branch TDAP 2020-02-14 Completed University of 00:00:00 [facility] Influenza Virus 2020-02-14 Completed Universit y of Vaccine Quad .5 mL 00:00:00 [facility] 6+ MO Branch TDAP 2020-02-14 Completed University of 00:00:00 [facility] Influenza Virus 2020-02-14 Completed Universit y of Vaccine Quad .5 mL 00:00:00 [facility] 6+ MO Branch TDAP 2020-02-14 Completed University of 00:00:00 [place] [facility] [place] Influenza Virus 2020-02-14 Completed Universit y of Vaccine Quad .5 mL 00:00:00 [place] [facility] 6+ MO Branch TDAP 2020-02-14 Completed University of 00:00:00 [place] [facility] [place] Influenza Virus 2020-02-14 Completed Universit y of Vaccine Quad .5 mL 00:00:00 [place] [facility] 6+ MO Branch TDAP 2020-02-14 Completed University of 00:00:00 [place] [facility] [place] Influenza Virus 2020-02-14 Completed Universit y of Vaccine Quad .5 mL 00:00:00 [place] [facility] 6+ MO Branch TDAP 2020-02-14 Completed University of 00:00:00 [facility] Influenza Virus 2020-02-14 Completed Universit y of Vaccine Quad .5 mL 00:00:00 [place] [facility] 6+ MO Branch TDAP 2020-02-14 Completed University of 00:00:00 [place] [facility] [place] Influenza Virus 2020-02-14 Completed Universit y of Vaccine Quad .5 mL 00:00:00 [place] [facility] 6+ MO Branch TDAP 2020-02-14 Completed University of 00:00:00 [place] [facility] [place] Influenza Virus 2020-02-14 Completed Universit y of Vaccine Quad .5 mL 00:00:00 [place] [facility] 6+ MO Branch TDAP 2020-02-14 Completed University of 00:00:00 [facility] Influenza Virus 2020-02-14 Completed Universit y of Vaccine Quad .5 mL 00:00:00 [place] [facility] 6+ MO Branch TDAP 2020-02-14 Completed University of 00:00:00 [place] [facility] [place] Influenza Virus 2020-02-14 Completed Universit y of Vaccine Quad .5 mL 00:00:00 [place] [facility] 6+ MO Branch TDAP 2020-02-14 Completed University of 00:00:00 [place] [facility] [place] Influenza Virus 2020-02-14 Completed Universit y of Vaccine Quad .5 mL 00:00:00 [place] [facility] 6+ MO Branch TDAP 2020-02-14 Completed University of 00:00:00 [place] [facility] [place] Influenza Virus 2020-02-14 Completed Universit y of Vaccine Quad .5 mL 00:00:00 [place] [facility] 6+ MO Branch TDAP 2020-02-14 Completed University of 00:00:00 [facility] Influenza Virus 2020-02-14 Completed Universit y of Vaccine Quad .5 mL 00:00:00 [place] [facility] 6+ MO Branch TDAP 2020-02-14 Completed University of 00:00:00 [place] [facility] [place] Influenza Virus 2020-02-14 Completed Universit y of Vaccine Quad .5 mL 00:00:00 [place] [facility] 6+ MO Branch TDAP 2020-02-14 Completed University of 00:00:00 [place] [facility] [place] Influenza Virus 2020-02-14 Completed Universit y of Vaccine Quad .5 mL 00:00:00 [place] [facility] 6+ MO Branch TDAP 2020-02-14 Completed University of 00:00:00 [place] [facility] [place] Influenza Virus 2020-02-14 Completed Universit y of Vaccine Quad .5 mL 00:00:00 [place] [facility] 6+ MO Branch TDAP 2020-02-14 Completed University of 00:00:00 [facility] Influenza Virus 2020-02-14 Completed Universit y of Vaccine Quad .5 mL 00:00:00 [place] [facility] 6+ MO Branch TDAP 2020-02-14 Completed University of 00:00:00 [place] [facility] [place] Influenza Virus 2020-02-14 Completed Universit y of Vaccine Quad .5 mL 00:00:00 [place] [facility] 6+ MO Branch TDAP 2020-02-14 Completed University of 00:00:00 [place] [facility] [place] Influenza Virus 2020-02-14 Completed Universit y of Vaccine Quad .5 mL 00:00:00 [place] [facility] 6+ MO Branch TDAP 2020-02-14 Completed University of 00:00:00 [facility] Influenza Virus 2020-02-14 Completed Universit y of Vaccine Quad .5 mL 00:00:00 [place] [facility] 6+ MO Branch TDAP 2020-02-14 Completed University of 00:00:00 [place] [facility] [place] Influenza Virus 2020-02-14 Completed Universit y of Vaccine Quad .5 mL 00:00:00 [place] [facility] 6+ MO Branch TDAP 2020-02-14 Completed University of 00:00:00 [place] [facility] [place] Influenza Virus 2020-02-14 Completed Universit y of Vaccine Quad .5 mL 00:00:00 [place] [facility] IM 6+ MO Branch TDAP 2020-02-14 Completed University of 00:00:00 [place] [facility] [place] Influenza Virus 2020-02-14 Completed Universit y of Vaccine Quad .5 mL 00:00:00 [place] [facility] 6+ MO Branch TDAP 2020-02-14 Completed University of 00:00:00 [facility] Influenza Virus 2020-02-14 Completed Universit y of Vaccine Quad .5 mL 00:00:00 [place] [facility] IM 6+ MO Branch TDAP 2020-02-14 Completed University of 00:00:00 [facility] Influenza Virus 2020-02-14 Completed Universit y of Vaccine Quad .5 mL 00:00:00 [place] [facility] IM 6+ MO Branch TDAP 2020-02-14 Completed University of 00:00:00 [facility] Influenza Virus 2020-02-14 Completed Universit y of Vaccine Quad .5 mL 00:00:00 [place] [facility] IM 6+ MO Branch TDAP 2020-02-14 Completed University of 00:00:00 [facility] Influenza Virus 2020-02-14 Completed Universit y of Vaccine Quad .5 mL 00:00:00 [place] [facility] IM 6+ MO Branch TDAP 2020-02-14 Completed [facility] 00:00:00 [facility] [facility] [place] Influenza Virus 2020-02-14 Completed Universit y of [facility] .5 mL 00:00:00 [facility] TDAP 2020-02-14 Completed University of 00:00:00 [facility] [place] Influenza Virus 2020-02-14 Completed Universit y of [facility] .5 mL 00:00:00 [facility] TDAP 2020-02-14 Completed [facility] of 00:00:00 [facility] [place] Influenza Virus 2020-02-14 Completed Universit y of [facility] .5 mL 00:00:00 [facility] TDAP 2020-02-14 Completed University of 00:00:00 [facility] [place] Influenza Virus 2020-02-14 Completed Universit y of [facility] .5 mL 00:00:00 [facility] Influenza Virus 2015-02-01 Completed Universit y of [facility] IM 3+ 00:00:00 [facility] Influenza Virus 2015-02-01 Completed Universit y of [facility] IM 3+ 00:00:00 [facility] Influenza Virus 2015-02-01 Completed Universit y of [facility] IM 3+ 00:00:00 [facility] Influenza Virus 2015-02-01 Completed Universit y of [facility] IM 3+ 00:00:00 [facility] Influenza Virus 2015-02-01 Completed Universit y of [facility] IM 3+ 00:00:00 [facility] Influenza Virus 2015-02-01 Completed Universit y of [facility] IM 3+ 00:00:00 [facility] Influenza Virus 2015-02-01 Completed Universit y of [facility] IM 3+ 00:00:00 [facility] Influenza Virus 2015-02-01 Completed [facility]it y of [facility] IM 3+ 00:00:00 [facility] Influenza Virus 2015-02-01 Completed [facility]it y of [facility] IM 3+ 00:00:00 [facility] Influenza Virus 2015-02-01 Completed Universit y of [facility] IM 3+ 00:00:00 [facility] Influenza Virus 2015-02-01 Completed [facility]it y of [facility] IM 3+ 00:00:00 [facility] Influenza Virus 2015-02-01 Completed Universit y of [facility] IM 3+ 00:00:00 [facility] Influenza Virus 2015-02-01 Completed [facility]it y of [facility] IM 3+ 00:00:00 [facility] Influenza Virus 2015-02-01 Completed Universit y of [facility] IM 3+ 00:00:00 [facility] Influenza Virus 2015-02-01 Completed [facility]it y of [facility] IM 3+ 00:00:00 [facility] Influenza Virus 2015-02-01 Completed [facility]it y of [facility] IM 3+ 00:00:00 [facility] Influenza Virus 2015-02-01 Completed [facility]it y of [facility] IM 3+ 00:00:00 [facility] Influenza Virus 2015-02-01 Completed [facility]it y of [facility] IM 3+ 00:00:00 [facility] Influenza Virus 2015-02-01 Completed [facility]it y of [facility] IM 3+ 00:00:00 [facility] Influenza Virus 2015-02-01 Completed [facility]it y of [facility] IM 3+ 00:00:00 [facility] Influenza Virus 2015-02-01 Completed [facility]it y of [facility] IM 3+ 00:00:00 [facility] Influenza Virus 2015-02-01 Completed [facility]it y of [facility] IM 3+ 00:00:00 [facility] Influenza Virus 2015-02-01 Completed [facility]it y of [facility] IM 3+ 00:00:00 [facility] Influenza Virus 2015-02-01 Completed [facility]it y of [facility] IM 3+ 00:00:00 [facility] Influenza Virus 2015-02-01 Completed [facility]it y of [facility] IM 3+ 00:00:00 [facility] Influenza Virus 2015-02-01 Completed [facility]it y of [facility] IM 3+ 00:00:00 [facility] Influenza Virus 2015-02-01 Completed [facility]it y of [facility] IM 3+ 00:00:00 [facility] Influenza Virus 2015-02-01 Completed [facility]it y of [facility] IM 3+ 00:00:00 [facility] Influenza Virus 2015-02-01 Completed [facility]it y of [facility] IM 3+ 00:00:00 [facility] Influenza Virus 2015-02-01 Completed [facility]it y of [facility] IM 3+ 00:00:00 [facility] Influenza Virus 2015-02-01 Completed [facility]it y of [facility] IM 3+ 00:00:00 [facility] Influenza Virus 2015-02-01 Completed [facility]it y of [facility] IM 3+ 00:00:00 [facility] Influenza Virus 2015-02-01 Completed [facility]it y of [facility] IM 3+ 00:00:00 [facility] Influenza Virus 2015-02-01 Completed [facility]it y of [facility] IM 3+ 00:00:00 [facility] Influenza Virus 2015-02-01 Completed [facility]it y of [facility] IM 3+ 00:00:00 [facility] Influenza Virus 2015-02-01 Completed [facility]it y of [facility] IM 3+ 00:00:00 [facility] Influenza Virus 2015-02-01 Completed [facility]it y of [facility] IM 3+ 00:00:00 [facility] Influenza Virus 2015-02-01 Completed [facility]it y of [facility] IM 3+ 00:00:00 [facility] Influenza Virus 2015-02-01 Completed [facility]it y of [facility] IM 3+ 00:00:00 [facility] Influenza Virus 2015-02-01 Completed [facility]it y of [facility] IM 3+ 00:00:00 [facility] Influenza Virus 2015-02-01 Completed [facility]it y of [facility] IM 3+ 00:00:00 [facility] Influenza Virus 2015-02-01 Completed [facility]it y of [facility] IM 3+ 00:00:00 [facility] Influenza Virus 2015-02-01 Completed [facility]it y of [facility] IM 3+ 00:00:00 [facility] Influenza Virus 2015-02-01 Completed [facility]it y of [facility] IM 3+ 00:00:00 [facility] Influenza Virus 2015-02-01 Completed [facility]it y of [facility] IM 3+ 00:00:00 [facility] Influenza Virus 2015-02-01 Completed [facility]it y of [facility] IM 3+ 00:00:00 [facility] Influenza Virus 2015-02-01 Completed [facility]it y of [facility] IM 3+ 00:00:00 [facility] Influenza Virus 2015-02-01 Completed [facility]it y of [facility] IM 3+ 00:00:00 [facility] Influenza Virus 2015-02-01 Completed [facility]it y of [facility] IM 3+ 00:00:00 [facility] Influenza Virus 2015-02-01 Completed [facility]it y of [facility] IM 3+ 00:00:00 [facility] Influenza Virus 2015-02-01 Completed [facility]it y of [facility] IM 3+ 00:00:00 [facility] Influenza Virus 2015-02-01 Completed Universit y of [facility] IM 3+ 00:00:00 [facility] Influenza Virus 2015-02-01 Completed [facility]it y of [facility] IM 3+ 00:00:00 [facility] Influenza Virus 2015-02-01 Completed [facility]it y of [facility] IM 3+ 00:00:00 [facility] Vital Signs Vital Name Observation Time Observation Value Comments Source Systolic blood 2020-08-13 13:47:00 121 mm[Hg] Univer sity of pressure [facility] Diastolic blood 2020-08-13 13:47:00 70 mm[Hg] Unive rsity of [facility] Heart rate 2020-08-13 13:47:00 71 /min [facility] Body temperature 2020-08-13 13:47:00 36.67 Jasmin [facility] rate 2020-08-13 13:47:00 18 /min [facility] Body height 2020-08-13 13:47:00 180.3 [facility] Body weight 2020-08-13 13:47:00 124.286 [facility] BMI 2020-08-13 13:47:00 38.22 kg/m2 [facility] Systolic blood 2020-08-13 13:47:00 121 mm[Hg] Univer sity of pressure [facility] Diastolic blood 2020-08-13 13:47:00 70 mm[Hg] Unive rsity of pressure [facility] Heart rate 2020-08-13 13:47:00 71 /min Universi ty of [facility] Body temperature 2020-08-13 13:47:00 36.67 Jasmin Univ ersity of [facility] Respiratory rate 2020-08-13 13:47:00 18 /min Univ ersity of [facility] Body height 2020-08-13 13:47:00 180.3 cm Universi ty of [facility] Body weight 2020-08-13 13:47:00 124.286 kg Universi ty of [facility] BMI 2020-08-13 13:47:00 38.22 kg/m2 Universi ty of [facility] Systolic blood 2020-07-19 15:56:00 116 mm[Hg] Univer sity of pressure [facility] Diastolic blood 2020-07-19 15:56:00 69 mm[Hg] Unive rsity of pressure [facility] Heart rate 2020-07-19 15:56:00 73 /min Universi ty of [facility] Body temperature 2020-07-19 15:56:00 36.44 Jasmin Univ ersity of [facility] Respiratory rate 2020-07-19 15:56:00 16 /min Univ ersity of [facility] Oxygen saturation in 2020-07-19 15:56:00 99 /min University of Arterial blood by [facility] Pulse oximetry Branch Body weight 2020-07-19 08:45:00 126.554 kg Universi ty of [facility] BMI 2020-07-19 08:45:00 38.93 kg/m2 [facility]i ty of [facility] Body height 2020-07-18 16:47:00 180.3 cm [facility]i ty of [facility] Systolic blood 2020-07-10 08:00:00 120 mm[Hg] Univer sity of pressure [facility] Diastolic blood 2020-07-10 08:00:00 78 mm[Hg] Unive rsity of pressure [facility] Heart rate 2020-07-10 08:00:00 66 /min [facility]i ty of [facility] Respiratory rate 2020-07-10 08:00:00 18 /min Univ ersity of [facility] Oxygen saturation in 2020-07-10 08:00:00 96 /min University of Arterial blood by [facility] Pulse oximetry Branch Body temperature 2020-07-10 05:53:00 36.56 Jasmin Univ ersity of [facility] Body weight 2020-07-10 05:53:00 122.925 kg Universi ty of [facility] BMI 2020-07-10 05:53:00 37.80 kg/m2 [facility]i ty [facility] Heart rate 2020-06-08 04:18:00 59 /min Universi ty of [facility] [place] Oxygen saturation in 2020-06-08 04:18:00 98 /min University of Arterial blood by [facility] Pulse oximetry Branch Systolic blood 2020-06-08 04:00:00 140 mm[Hg] Univer sity of pressure [facility] Diastolic blood 2020-06-08 04:00:00 93 mm[Hg] Unive rsity of pressure [facility] Respiratory rate 2020-06-08 04:00:00 19 /min Univ ersity of [facility] Body temperature 2020-06-08 03:42:00 36.72 Jasmin Univ ersity of [facility] Body weight 2020-06-08 03:42:00 122.925 kg Universi ty of [facility] BMI 2020-06-08 03:42:00 37.80 kg/m2 [facility]i ty of [facility] Systolic blood 2020-05-24 22:55:00 122 mm[Hg] Univer sity of pressure [facility] Diastolic blood 2020-05-24 22:55:00 81 mm[Hg] Unive rsity of pressure [facility] Heart rate 2020-05-24 22:55:00 64 /min Universi ty of [facility] Body temperature 2020-05-24 22:55:00 36.61 Jasmin Univ ersity of [facility] Body height 2020-05-24 22:55:00 180.3 cm [facility]i ty [facility] Body weight 2020-05-24 22:55:00 124.286 kg [facility]i ty of [facility] BMI 2020-05-24 22:55:00 38.22 kg/m2 [facility]i ty [facility] Systolic blood 2020-05-18 10:00:00 122 mm[Hg] Univer sity of pressure [facility] Diastolic blood 2020-05-18 10:00:00 75 mm[Hg] Unive rsity of pressure [facility] Heart rate 2020-05-18 10:00:00 66 /min Universi ty of [facility] Respiratory rate 2020-05-18 10:00:00 14 /min Univ ersity of [facility] Oxygen saturation in 2020-05-18 10:00:00 99 /min University of Arterial blood by [facility] Pulse oximetry Branch Body temperature 2020-05-18 07:07:00 36.22 Jasmin Univ ersity of [facility] Body weight 2020-05-18 07:07:00 122.471 kg Universi ty of [facility] BMI 2020-05-18 07:07:00 37.66 kg/m2 Universi ty of [facility] Systolic blood 2020-05-02 20:24:00 125 mm[Hg] Univer sity of pressure [facility] Diastolic blood 2020-05-02 20:24:00 89 mm[Hg] Unive rsity of pressure [facility] Heart rate 2020-05-02 20:24:00 61 /min Universi ty of [facility] Body temperature 2020-05-02 20:24:00 37 Jasmin Univ ersity of [facility] Respiratory rate 2020-05-02 20:24:00 18 /min Univ ersity of [facility] Body weight 2020-05-02 20:24:00 125.646 kg [facility]i ty of [facility] [place] BMI 2020-05-02 20:24:00 38.63 kg/m2 [facility]i ty of [facility] Systolic blood 2020-04-18 17:55:00 121 mm[Hg] Univer sity of pressure [facility] Diastolic blood 2020-04-18 17:55:00 74 mm[Hg] Unive rsity of pressure [facility] Heart rate 2020-04-18 17:55:00 78 /min Universi ty of [facility] Respiratory rate 2020-04-18 17:55:00 20 /min Univ ersity of [facility] Body height 2020-04-18 17:55:00 180.3 cm [facility]i ty of [facility] [place] Body weight 2020-04-18 17:55:00 134.174 kg Universi ty of [facility] BMI 2020-04-18 17:55:00 41.26 kg/m2 [facility]i ty of [facility] Systolic blood 2020-04-16 21:27:00 118 mm[Hg] Univer sity of pressure [facility] Diastolic blood 2020-04-16 21:27:00 71 mm[Hg] Unive rsity of pressure [facility] Heart rate 2020-04-16 21:27:00 80 /min Universi ty of [facility] Body temperature 2020-04-16 21:27:00 36.33 Jasmin Univ ersity of [facility] Respiratory rate 2020-04-16 21:27:00 16 /min Univ ersity of [facility] Body height 2020-04-16 21:27:00 180.3 cm Universi ty of [facility] Body weight 2020-04-16 21:27:00 134.99 kg Universi ty of [facility] BMI 2020-04-16 21:27:00 41.51 kg/m2 [facility]i ty of [facility] Systolic blood 2020-04-12 21:38:00 123 mm[Hg] Univer sity of pressure [facility] Diastolic blood 2020-04-12 21:38:00 80 mm[Hg] Unive rsity of pressure [facility] Heart rate 2020-04-12 21:38:00 89 /min Universi ty of [facility] Body temperature 2020-04-12 21:38:00 36.83 Jasmin Univ ersity of [facility] Respiratory rate 2020-04-12 21:38:00 18 /min Univ ersity of [facility] Body height 2020-04-12 21:38:00 180.3 cm Universi ty of [facility] Body weight 2020-04-12 21:38:00 135.081 kg [facility]i ty of [facility] BMI 2020-04-12 21:38:00 41.53 kg/m2 [facility]i ty of [facility] Systolic blood 2020-03-29 21:46:00 95 mm[Hg] Univer sity of pressure [facility] Diastolic blood 2020-03-29 21:46:00 55 mm[Hg] Unive rsity of pressure [facility] Heart rate 2020-03-29 21:46:00 83 /min [facility]i ty of [facility] Body temperature 2020-03-29 21:46:00 36.94 Jasmin Univ ersity of [facility] Respiratory rate 2020-03-29 21:46:00 18 /min Univ ersity of [facility] Body height 2020-03-29 21:46:00 180.3 cm [facility]i ty [facility] Body weight 2020-03-29 21:46:00 134.265 kg [facility]i ty of [facility] BMI 2020-03-29 21:46:00 41.28 kg/m2 [facility]i ty of [facility] Systolic blood 2020-03-21 21:28:00 105 mm[Hg] Univer sity of pressure [facility] Diastolic blood 2020-03-21 21:28:00 71 mm[Hg] Unive rsity of pressure [facility] Heart rate 2020-03-21 21:28:00 83 /min Universi ty of [facility] Body temperature 2020-03-21 21:28:00 36.67 Jasmin Univ ersity of [facility] Respiratory rate 2020-03-21 21:28:00 16 /min Univ ersity of [facility] Body height 2020-03-21 21:28:00 180.3 cm [facility]i ty [facility] Body weight 2020-03-21 21:28:00 133.085 kg [facility]i ty [facility] BMI 2020-03-21 21:28:00 40.92 kg/m2 [facility]i ty [facility] Systolic blood 2020-03-14 18:01:00 112 mm[Hg] Univer sity of pressure [facility] Diastolic blood 2020-03-14 18:01:00 71 mm[Hg] Unive rsity of pressure [facility] Heart rate 2020-03-14 18:01:00 73 /min Universi ty of [facility] Body temperature 2020-03-14 18:01:00 36.5 Jasmin Univ ersity of [facility] Respiratory rate 2020-03-14 18:01:00 18 /min Univ ersity of [facility] Body height 2020-03-14 18:01:00 180.3 cm [facility]i ty of [facility] Body weight 2020-03-14 18:01:00 132.904 kg [facility]i ty [facility] BMI 2020-03-14 18:01:00 40.87 kg/m2 [facility]i ty [facility] Systolic blood 2020-02-14 16:18:00 110 mm[Hg] Univer sity of pressure [facility] Diastolic blood 2020-02-14 16:18:00 73 mm[Hg] Unive rsity of pressure [facility] Heart rate 2020-02-14 16:18:00 79 /min [facility]i ty of [facility] [place] Body temperature 2020-02-14 16:18:00 36.94 Jasmin Univ ersity of [facility] Respiratory rate 2020-02-14 16:18:00 18 /min Univ ersity of [facility] Body height 2020-02-14 16:18:00 175.3 cm Universi ty of [facility] Body weight 2020-02-14 16:18:00 128.822 kg Universi ty of [facility] BMI 2020-02-14 16:18:00 41.94 kg/m2 Universi ty of [facility] Systolic blood 2019-12-06 16:20:00 126 mm[Hg] Univer sity of pressure [facility] Diastolic blood 2019-12-06 16:20:00 80 mm[Hg] Unive rsity of pressure [facility] Heart rate 2019-12-06 16:20:00 99 /min Universi ty of [facility] Body temperature 2019-12-06 16:20:00 37.17 Jasmin Univ ersity of [facility] Respiratory rate 2019-12-06 16:20:00 18 /min Univ ersity of [facility] Body height 2019-12-06 16:20:00 180.3 cm [facility]i ty of [facility] [place] Body weight 2019-12-06 16:20:00 124.286 kg Universi ty of [facility] BMI 2019-12-06 16:20:00 38.22 kg/m2 Universi ty of [facility] Systolic blood 2019-11-28 23:20:00 136 mm[Hg] Univer sity of pressure [facility] Diastolic blood 2019-11-28 23:20:00 76 mm[Hg] Unive rsity of pressure [facility] Heart rate 2019-11-28 23:20:00 81 /min Universi ty of [facility] Respiratory rate 2019-11-28 23:20:00 18 /min Univ ersity of [facility] Oxygen saturation in 2019-11-28 23:20:00 95 /min University Arterial blood by [facility] Pulse oximetry Branch Body temperature 2019-11-28 20:43:00 37.28 Jasmin Univ ersity of [facility] Body height 2019-11-28 20:43:00 180.3 cm Universi ty of [facility] Body weight 2019-11-28 20:43:00 122.471 kg Universi ty [facility] BMI 2019-11-28 20:43:00 37.66 kg/m2 Universi ty [facility] Systolic blood 2019-11-03 14:20:00 134 mm[Hg] Univer sity of pressure [facility] Diastolic blood 2019-11-03 14:20:00 82 mm[Hg] Unive rsity of [facility] Heart rate 2019-11-03 14:20:00 92 /min Universi ty [facility] Body temperature 2019-11-03 14:20:00 36.67 Jasmin [facility] Respiratory rate 2019-11-03 14:20:00 16 /min [facility] Body height 2019-11-03 14:20:00 180.3 cm Universi ty [facility] Body weight 2019-11-03 14:20:00 125.363 kg Universi [facility] BMI 2019-11-03 14:20:00 38.55 kg/m2 Universi [facility] Procedures Procedure Date / Time Performing Clinician Source Performed FL TIME OR 2020-07-18 20:03:05 Belén Crespo [facility] (NON-REPORTABLE) [facility] LAPAROSCOPIC 2020-07-18 17:51:00 Belén Crespo [facility] CHOLECYSTECTOMY [facility] US ABDOMEN LIMITED 2020-07-18 13:22:57 Belén Crespo [facility] COVID-19 (ID NOW RAPID 2020-07-18 12:13:00 Roshan West [facility] TESTING) [facility] CT ABDOMEN PELVIS W 2020-07-18 11:51:38 Roshan West [facility] CONTRAST [facility] POCT TEST 2020-07-18 11:36:00 Roshan West [facility] LIPASE 2020-07-18 11:26:00 Roshan [place] o f [facility] BILI UNCONJUGATED/BILI 2020-07-18 11:26:00 Roshan West [facility] COMP. METABOLIC PANEL 2020-07-18 11:26:00 Roshan West [facility] ([id number]) Medical Branch CBC WITH DIFF 2020-07-18 11:26:[address] [facility] URINALYSIS 2020-07-18 11:26:00 [facility] CONSENT/REFUSAL FOR 2020-07-18 11:10:36 Doctor Kris [facility] DIAGNOSIS AND TREATMENT [facility] CT ABDOMEN PELVIS W 2020-07-10 07:05:30 Matthias Bedolla [facility] CONTRAST Medical Branch LIPASE 2020-07-10 06:16:00 Matthias Bedolla [facility] COMP. METABOLIC PANEL 2020-07-10 06:16:00 Matthias Bedolla [facility] ([id number]) [facility] CBC WITH DIFF 2020-07-10 06:16:00 Matthias Bedolla [facility] URINALYSIS 2020-07-10 06:16:00 Matthias Bedolla [facility] POCT TEST 2020-07-10 06:00:00 Matthias Bedolla [facility] NOTICE OF PRIVACY 2020-07-10 05:38:40 Doctor Kris, [facility] CONSENT/REFUSAL FOR 2020-07-10 05:38:26 Doctor Kris [facility] DIAGNOSIS AND TREATMENT [facility] NOTICE OF PRIVACY 2020-06-08 03:37:21 Doctor Unassrichie, [facility] CONSENT/REFUSAL FOR 2020-06-08 03:37:05 [facility] DIAGNOSIS AND TREATMENT [facility] CONSENT/REFUSAL FOR 2020-06-08 03:37:02 Doctor Kris [facility] DIAGNOSIS AND TREATMENT [facility] POCT TEST 2020-05-24 00:00:00 Ladonna Leyva [facility] CT CHEST PULMONARY 2020-05-18 08:55:26 Ekta Morse [facility] ANGIOGRAM Medical Branch LIPASE 2020-05-18 07:51:00 Ekta Morse [facility] TROPONIN I 2020-05-18 07:51:00 Ekta Morse [facility] HEPATIC FUNCTION PANEL 2020-05-18 07:51:00 Ekta Morse [facility] ([id number]) (ALB,T.PRO,BILI Medical Branch T,BU/BC,ALT,AST,ALK PHOS) BASIC METABOLIC PANEL (NA, 2020-05-18 07:51:00 Ekta Morse [facility] K, CL, CO2, GLUCOSE, BUN, Medica l Branch CREATININE, CA) CBC WITH DIFF 2020-05-18 07:51:00 Ekta Morse [facility] NOTICE OF PRIVACY 2020-05-18 07:05:35 Doctor Unassigned, [facility] PRACTICES [facility] CONSENT/REFUSAL FOR 2020-05-18 07:04:19 Doctor Unassigned, [facility] DIAGNOSIS AND TREATMENT [facility] CONSENT/REFUSAL FOR 2020-05-18 07:04:14 Doctor Unassigned, [facility] DIAGNOSIS AND TREATMENT [facility] BIOPHYSICAL PROFILE 2020-04-18 18:32:22 Rishi Singh [facility] NON-STRESS TEST 2020-04-17 01:03:44 Ladonna Leyva [facility] POCT URINALYSIS W/O 2020-04-16 00:00:00 Ladonna Leyva [facility] SPECIFIC GRAVITY [facility] NON-STRESS TEST 2020-04-13 01:37:29 Ladonna Leyva [facility] NON-STRESS TEST 2020-03-29 22:00:32 Ruy Martinez [facility] NON-STRESS TEST 2020-03-21 22:08:58 Ruy Martinez [facility] NON-STRESS TEST 2020-03-21 22:06:45 Ladonna Leyva [facility] SECOND AND THIRD TRIMESTER 2020-03-09 19:49:00 Ladonna Leyva [facility] ULTRASOUND [facility] SECOND AND THIRD TRIMESTER 2020-03-01 19:32:00 Leyva, Ladonna [facility] Medical Branch FLU VACC ([id number]), 6+ 2020-02-14 17:05:03 Ladonna Leyva [facility] [place] MONTHS, IM, QUAD Medical Branch TDAP VACCINE, >11 YRS, IM 2020-02-14 16:44:57 Ladonna Leyva Un iversity of [facility] SECOND AND THIRD TRIMESTER 2020-01-05 21:19:00 Leyva Ladonna Cam [facility] [place] ULTRASOUND Medical Branch SECOND AND THIRD TRIMESTER 2020-01-05 20:51:00 Leyva, Ladonna Cam [facility] [place] ULTRASOUND Medical Branch SECOND AND THIRD TRIMESTER 2020-01-05 20:44:00 Leyva, Ladonna Cam [facility] CONSENT TO CONTACT FOR 2019-12-06 16:09:25 [facility]IS 2019-11-28 23:13:00 Matthias Bedolla [facility] COMP. METABOLIC PANEL 2019-11-28 21:47:00 Matthias Bedolla [facility] ([id number]) Medical [place] CBC WITH DIFF 2019-11-28 21:47:00 Matthias Bedolla [facility] NOTICE OF PRIVACY 2019-11-28 20:29:30 Doctor Unaelkin, [facility] PRACTICES [facility] CONSENT/REFUSAL FOR 2019-11-28 20:29:18 Doctor Unassrichie, [facility] DIAGNOSIS AND TREATMENT [facility] POCT URINALYSIS W/O 2019-11-03 14:11:00 Kelsey Wall [facility] [place] SPECIFIC GRAVITY [facility] POCT TEST 2019-11-03 14:10:00 Kelsey Wall Uni versity of [facility] Encounters Start End Encounter Admission Attending Care Care Encounter Source Date/Time Date/Time Type Type Clinicians Facility Department ID 2021-02-24 Emergency [facility] [id number] Univers 08:03:59 ity [facility] 2021-02-24 Emergency [facility] [id number] Univers 06:12:16 ity of [facility] 2021-02-23 Emergency [facility] [id number] Univers 23:13:52 ity [facility] 2021-02-23 Emergency [facility] [id number] Univers 18:44:48 ity of [facility] 2021-02-23 Emergency [facility] [id number] Univers 14:23:18 ity [facility] 2021-04-26 2021-04-26 Laboratory Only, Ang Db Test [facility] 1.2.8 40.114 [id number] Univers 13:00:00 13:15:00 Only Matteo Elder [facility] 350.1.13.10 ity [facility] 4.2.7.2.686 Kostas as ROLANDO?BLEA [phone] Nd dical [address] MEDICAL OFFICE BUILDING 2021-04-26 2021-04-26 Outpatient R [facility] [id number] Univers 13:00:00 13:00:[id number] [facility] [place] [place] 2021-04-26 2021-04-26 [facility] [id number] Univers 13:00:00 13:00:[address] [facility] [place] [place] 2021-04-26 2021-04-26 Outpatient [facility] [id number] Univers 12:50:00 12:50:00 ELDER [facility] 2020-08-14 2020-08-14 Outpatient R ZAK [facility] [id number] Univers 14:30:00 14:30:00 BELÉN [id number] [facility] 2020-08-13 2020-08-13 [facility] [id number] [id number] 08:41:30 09:13:07 Visit Belén Lidia 350.1.13.10 [place] 4.2.7.2.[address] Professio [phone] 2020-08-13 2020-08-13 Office [facility] 1.2.789.976 [id number] Univers 08:41:30 09:13:07 Visit Belénrashida Murillo 350.1.13.10 i ty of [place] [phone] [place] [address] Branch Building 2020-08-132020-08-13 Outpatient R ZAK, [facility] [id number] Univers 08:45:00 08:45:00 BELÉN [id number] [facility] 2020-08-13 2020-08-13 Outpatient R ZAK, [facility] [id number] Univers 08:45:00 08:45:00 BELÉN iteaston [facility] 2020-08-02 2020-08-02 Outpatient R ОЛЕГ [facility] [id number] Univers 10:00:00 10:00:00 LORE [id number] jerrica o deborah [facility] 2020-08-02 2020-08-02 Outpatient [facility] [id number] Univers 10:00:00 10:00:00 LORE cabrera [facility] 2020-07-18 2020-07-19 Emergency Roshan West [facility] 1.2.840. 114 [id number] Univers 06:12:00 11:15:00 Michael Agarwal 350.1.13.10 ity of [place] 4.2.7.2.686 [facility] [phone] [place] [id number] Branch 2020-07-17 2020-07-17 Patient [facility] 1.2.840.114 [id number] Univers 00:00:00 00:00:00 Outreach Jonny [facility] 350.1.13.10 i ty of [facility] 4.2.7.2.686 [place] [facility] [phone] Nd dical 388 Branch 2020-07-10 2020-07-10 Emergency [facility] 1.2.367.386 [id number] Univers 00:45:00 03:37:00 Matthias Murillo 350.1.13.10 i ty of [place] 4.2.7.2.686 [facility] [phone] [place] 664984 Branch 2020-07-10 2020-07-10 Orders Doctor SCHAEFFER 1.2.840.114 [id number] Univers 00:00:00 00:00:00 Only Unassigned, JONE 350.1.13.10 ity of [place]s [facility] 4.2.7.2.686 Kostas as [phone] [facility] 009 Branch 2020-06-21 2020-06-21 Outpatient R [facility] [id number] Univers 13:00:00 13:00:00 RUY [id number] ity [facility] 2020-06-21 2020-06-21 Outpatient [facility] [id number] Univers 13:00:00 13:00:00 RUY [facility] 2020-06-16 2020-06-16 Refill [facility] 1.2.762.757 [id number] Univers 00:00:00 00:00:00 Ruy Murillo 350.1.13.10 i ty of [place].2.[place] [phone] Nd dical nal [address] [place] [address] 2020-06-11 2020-06-11 Outpatient R [facility] [id number] Univers 13:00:00 13:00:00 [id number] [facility] 2020-06-11 2020-06-11 Outpatient R [facility] [id number] Univers 13:00:00 13:00:[address] [facility] [place] [place] 2020-06-07 2020-06-07 Emergency [facility] 1.2.159.741 [id number] Univers 21:44:00 23:54:00 Marissa Murillo 350.1.13.10 i ty of [place] 4.2.7.2.686 [place] [phone] [facility] 084 [place] 2020-05-25 2020-05-25 Outpatient [facility] [id number] Univers 15:30:00 15:30:00 [id number] [facility] 2020-05-24 2020-05-24 Routine [facility] 1.2.734.992 [id number] Univers 16:32:42 17:20:48 Ruy Murillo 350.1.13.10 ity of Visit [place] [phone] Nd dical nal [address] [facility] 2020-05-24 2020-05-24 Outpatient LADONNA MORGAN [facility] [id number] Univers 14:15:00 14:15:00 [id number] ity [facility] 2020-05-24 2020-05-24 Outpatient LADONNA MORGAN [facility] [id number] Univers 14:15:00 14:15:00 ity [facility] 2020-05-22 2020-05-22 Outpatient R SANDRA [facility] [id number] Univers 16:30:00 16:30:00 JOSHUA [id number] ity [facility] 2020-05-22 2020-05-22 Outpatient R SANDRA [facility] [id number] Univers 16:30:00 16:30:00 JOSHUA [facility] 2020-05-18 2020-05-18 Outpatient [facility] [id number] Univers 15:30:00 15:30:00 [id number] [facility] 2020-05-18 2020-05-18 Emergency [facility] 1.2.840.114 [id number] Univers 01:25:00 04:52:00 Ekta Murillo 350.1.13.10 [facility] 4.2.7.2.686 [facility] [phone] [address] 2020-05-15 2020-05-15 Outpatient [facility] [id number] Univers 11:00:00 11:00:[id number] [facility] [place] [place] 2020-05-15 2020-05-15 Outpatient Nikos GARCIAMARCUS [facility] [id number] Univers 11:00:00 11:00:[address] [facility] [place] [place] 2020-05-11 2020-05-11 Outpatient [facility] [id number] Univers 15:30:00 15:30:[id number] [facility] [place] [place] 2020-05-10 2020-05-10 Outpatient [facility] [id number] Univers 15:00:00 15:00:00 [id number] [facility] 2020-05-07 2020-05-07 Outpatient [facility] [id number] Univers 15:00:00 15:00:00 [id number] ity of [facility] 2020-05-04 2020-05-04 Outpatient [facility] [id number] -[id number] Univers 15:30:00 15:30:00 [id number] ity of [facility] 2020-05-03 2020-05-03 Outpatient [facility] [id number] Univers 15:00:00 15:00:00 [id number] ity [facility] 2020-05-02 2020-05-02 Nurse Nurse, [facility] 1.2.840.114 [id number] Univers 14:01:32 14:32:49 Visit Ladonna Leyva 350.1.13.10 ity [facility] 4.2.7.2.686 Mame Herrera [phone] Nd dical nal 134 Branch [facility] 2020-05-02 2020-05-02 Outpatient R [facility] [id number] Univers 14:00:00 14:00:00 [id number] ity of [facility] 2020-05-02 2020-05-02 Outpatient R [facility] [id number] Univers 14:00:00 14:00:00 ity of [facility] 2020-04-30 2020-04-30 Outpatient [facility] [id number] Univers 15:00:00 15:00:00 [id number] ity of [facility] 2020-04-30 2020-04-30 Outpatient R [facility] [id number] Univers 10:00:00 10:00:00 ity of [facility] 2020-04-26 2020-04-26 Outpatient R [facility] [id number] -[id number] Univers 15:15:00 15:15:00 [id number] ity of [facility] 2020-04-26 2020-04-26 Outpatient R [facility] [id number] Univers 14:00:00 14:00:00 ity of [facility] 2020-04-23 2020-04-23 Outpatient [facility] [id number] Univers 15:00:00 15:00:00 [id number] ity of [facility] 2020-04-23 2020-04-23 Outpatient NORAH FANG [facility] ZECHARIAH [id number] Univers 05:13:00 05:13:00 NORAH ZAMUDIO ity of [facility] 2020-04-18 2020-04-18 Outpatient R [facility] [id number] Univers 15:15:00 15:15:00 [id number] ity of [facility] 2020-04-18 2020-04-18 Outpatient R [facility] [id number] Univers 14:00:00 14:00:00 ity of [facility] 2020-04-18 2020-04-18 Initial SinghRishi [facility] 1.2.840.114 [id number] Univers 11:38:03 13:17:26 Figueredo, Sona Luke Y HEALTH 350.1 .13.10 ity of Visit CLINICS [place] [phone] [address] 2020-04-16 2020-04-16 Routine Room, [facility] 1.2.840.1 14 [id number] Univers 15:00:45 17:11:56 Ladonna Leyva 350.1.13.10 ity of Visit [place].2.[place] [phone] Nd dical nal [address] [facility] 2020-04-16 2020-04-16 Outpatient [facility] [id number] Univers 15:00:00 15:00:00 [id number] ity of [facility] 2020-04-16 2020-04-16 Outpatient R LADONNA LEYVA [facility] [id number] Univers 15:00:00 15:00:00 ity of [facility] 2020-04-16 2020-04-16 Telephone SinghLUI fieldLIANE 1.2.840.114 [id number] Univers 00:00:00 00:00:00 Rishi Y HEALTH 350.1.13.10 i ty of CLINICS [place]2.[place].2.[place] [phone] [address] 2020-04-13 2020-04-13 Tamale Maker Ultrasound, Adc [facility] 1.2 .840.114 [id number] Univers 13:25:43 13:55:43 Visit Amada Hernandez 350.1.13.10 ity of [place] 4[place]2.[place].2.[place] [phone] Nd dical nal [address] [place] [address] 2020-04-13 2020-04-13 Outpatient R [facility] [id number] Univers 13:30:00 13:30:00 [id number] ity of [facility] 2020-04-13 2020-04-13 Outpatient P [facility] [id number] Univers 13:30:00 13:30:00 AMADA HERNANDEZ ity of [facility] 2020-04-12 2020-04-12 Routine Room, [facility] 1.2.840.1 14 [id number] Univers 14:59:15 16:52:34 Ladonna Lyeva [facility] 350.1.13.10 ity of Visit [place] 4.2.7.2.[place] [phone] Nd dic[address] 2020-04-12 2020-04-12 Outpatient [facility] [id number] Univers 15:00:00 15:00:00 [id number] ity of [facility] 2020-04-12 2020-04-12 Outpatient R [facility] [id number] Univers 15:00:00 15:00:00 ity of [facility] 2020-04-09 2020-04-09 Outpatient R [facility] [id number] Univers 15:00:00 15:00:00 [id number] ity of [facility] 2020-04-09 2020-04-09 Outpatient R [facility] [id number] Univers 15:00:00 15:00:00 ity of [facility] 2020-04-04 2020-04-04 Tamale Maker Ultrasound, [facility] 1.2 .840.114 [id number] Univers 09:54:38 10:24:38 Visit Amada Hernandez [facility] 350.1.13.10 ity of [facility] 4.2.7.2.686 Kostas as MATERNAL [phone] Med ical & CHILD [address] [place] [address] 2020-04-04 2020-04-04 Outpatient R [facility] [id number] Univers 10:00:00 10:00:00 [id number] ity [facility] 2020-04-04 2020-04-04 Outpatient P [facility] [id number] Univers 10:00:00 10:00:00 ity of [facility] 2020-03-30 2020-03-30 Tamale Maker Ultrasound, [facility] 1.2 .840.114 [id number] Univers 14:26:00 14:56:00 Visit Norah Zamudio 350.1.13.10 ity of [place].2.[place] [phone] Nd dical [address] 2020-03-30 2020-03-30 Outpatient R [facility] [id number] Univers 14:30:00 14:30:00 ity of [facility] 2020-03-30 2020-03-30 Outpatient R [facility] [id number] Univers 14:30:00 14:30:00 ity of [facility] 2020-03-29 2020-03-29 Routine Room, [facility] 1.2.840.1 14 [id number] Univers 14:58:43 16:00:14 Ladonna Leyva Faizan Murillo 350.1.13.10 ity of Visit [place] 4.2.7.2.[place] [phone] Nd dic[address] 2020-03-29 2020-03-29 Outpatient [facility] [id number] Univers 15:00:00 15:00:00 ity of [facility] 2020-03-29 2020-03-29 Outpatient R [facility] [id number] Univers 15:00:00 15:00:00 ity of [facility] 2020-03-28 2020-03-28 Case Ladonna Leyva [facility] 1.2.037.463 [id number] Univers 00:00:00 00:00:00 Management Faizan Murillo 350.1.13.10 ity of [place] 4.2.7.2.[place] [phone] Nd dical nal [address] [place] [address] 2020-03-27 2020-03-27 Outpatient R [facility] [id number] Univers 15:00:00 15:00:00 ity of [facility] 2020-03-26 2020-03-26 Tamale Maker Ultrasound, Adalid-Mfm [facility] 1.2 .840.114 [id number] Univers 15:09:46 15:33:40 Visit Mayra Pinto [facility] 350.1. 13.10 ity of [facility] 4.2.7.2.686 Kostas as MATERNAL [phone] Med ical & CHILD [address] [place] [address] 2020-03-26 2020-03-26 Outpatient R [facility] [id number] Univers 14:45:00 14:45:00 ity of [facility] 2020-03-26 2020-03-26 Outpatient P [facility] [id number] Univers 14:45:00 14:45:00 ity [facility] 2020-03-21 2020-03-21 Routine Room, [facility] 1.2.840.1 14 [id number] Univers 15:01:47 15:56:49 Ladonna Leyva [place] 350.1.13.10 ity of Visit [place] 4.2.7.2.[place] [phone] Nd dical [address] 2020-03-21 2020-03-21 Outpatient R [facility] [id number] Univers 15:00:00 15:00:[id number] [facility] [place] [place] 2020-03-21 2020-03-21 Outpatient R [facility] [id number] Univers 15:00:00 15:00:00 ity of [facility] 2020-03-19 2020-03-19 Outpatient R [facility] [id number] Univers 15:00:00 15:00:00 [id number] ity [facility] 2020-03-19 2020-03-19 Outpatient R [facility] [id number] Univers 15:00:00 15:00:00 ity of [facility] 2020-03-19 2020-03-19 Outpatient R DARNELL, [facility] [id number] Univers 00:00:00 00:00:00 RUY ity [facility] 2020-03-15 2020-03-15 Outpatient R [facility] [id number] Univers 15:00:00 15:00:00 [id number] ity of [facility] 2020-03-15 2020-03-15 Outpatient R [facility] [id number] Univers 15:00:00 15:00:00 ity of [facility] 2020-03-14 2020-03-14 Routine Room, [facility] 1.2.840.1 14 [id number] Univers 11:24:52 12:51:24 Leyva Ladonna Murillo 350.1.13.10 ity of Visit [place] 4[place]2.7.2.[place] [phone] Nd dical nal [address] [place] [address] 2020-03-14 2020-03-14 Outpatient R LADONNA LEYVA [facility] [id number] Univers 11:15:00 11:15:00 [id number] ity of [facility] 2020-03-14 2020-03-14 Outpatient R LADONNA LEYVA [facility] [id number] Univers 11:15:00 11:15:00 ity of [facility] 2020-03-14 2020-03-14 Outpatient R [facility] [id number] Univers 11:00:00 11:00:00 ity of [facility] 2020-03-14 2020-03-14 Letter [facility] 1.2.697.876 [id number] Univers 00:00:00 00:00:00 (Out) Ruy Murillo 350.1.13.10 i ty of [place]2.[place].2.[place] [phone] Nd dical nal [address] [place] [address] 2020-03-13 2020-03-13 Outpatient R [facility] [id number] Univers 15:00:00 15:00:00 [id number] ity of [facility] 2020-03-13 2020-03-13 Outpatient R [facility] [id number] Univers 15:00:00 15:00:00 ity of [facility] 2020-03-09 2020-03-09 Tamale Maker 5, [facility] Us Room UNIVERSIT 1 .2.840.114 [id number] Univers 13:26:10 14:23:27 Visit Amada Hernandez 350.1.13.10 ity of CLINICS [place] [phone] [address] 2020-03-09 2020-03-09 Outpatient R [facility] [id number] Univers 13:00:00 13:00:00 [id number] ity of [facility] 2020-03-09 2020-03-09 Outpatient P [facility] [id number] Univers 13:00:00 13:00:00 ity of [facility] 2020-03-09 2020-03-09 Telephone Ladonna Leyva [facility] 1.2.840.114 [id number] Univers 00:00:00 00:00:00 Faizan Murillo 350.1.13.10 i ty of [place].2.[place] [phone] Nd dical nal 134 [facility] 2020-03-02 2020-03-02 Tamale Maker 2, [facility] 1.2.840.114 [id number] Univers 10:17:56 10:32:56 Visit Lian Leyvarashad Murillo 350.1.13.10 ity of [place] 4[place]2.7.2.[place] [phone] Nd dical nal 353 [facility] 2020-03-02 2020-03-02 Outpatient R [facility] [id number] Univers 10:15:00 10:15:00 ity of [facility] 2020-03-02 2020-03-02 Outpatient R LADONNA LEYVA [facility] [id number] Univers 10:15:00 10:15:00 ity [facility] 2020-03-01 2020-03-01 Tamale Maker 3, [facility] Room UNIVERSIT 1 .2.840.114 [id number] Univers 12:58:02 13:44:17 Visit Michelle, [facility] 350.1.13.10 ity of [facility] 4.2.7.2.[place] [phone] [address] 2020-03-01 2020-03-01 Outpatient R [facility] [id number] Univers 13:00:00 13:00:00 ity of [facility] 2020-03-01 2020-03-01 Outpatient P [facility] [id number] Univers 13:00:00 13:00:00 ity of [facility] 2020-02-20 2020-02-20 Outpatient R [facility] [id number] Univers 11:30:00 11:30:00 [id number] ity [facility] 2020-02-20 2020-02-20 Outpatient R [facility] [id number] Univers 11:30:00 11:30:00 ity [facility] 2020-02-14 2020-02-14 Routine Gordon [facility] 1.2.839.254 [id number] Univers 11:08:11 12:13:04 Faizan Murillo 350.1.13.10 ity of Visit [place] 4.2.7.2.686 Mame Herrera [phone] Nd dical [address] 2020-02-14 2020-02-14 Outpatient R LADONNA LEYVA [facility] [id number] Univers 11:15:00 11:15:00 ity [facility] 2020-02-14 2020-02-14 Outpatient R [facility] [id number] Univers 11:15:00 11:15:00 ity [facility] 2020-01-16 2020-01-16 Outpatient R IZZYCRYSTALMARCUS [facility] [id number] Univers 08:00:00 08:00:[id number] [facility] [place] [place] 2020-01-16 2020-01-16 Outpatient R JOSEMARCUS [facility] [id number] Univers 08:00:00 [facility] 2020-01-09 2020-01-09 Outpatient R JOSEMARCUS [facility] [id number] Univers 16:00:00 16:00:[id number] [facility] [place] [place] 2020-01-09 2020-01-09 Outpatient R DARNELL [facility] [id number] Univers 16:00:00 16:00:00 [facility] 2020-01-05 2020-01-06 Tamale Maker 1, [facility] Room UNIVERSIT 1 .2.840.114 [id number] Univers 14:15:37 08:27:56 Visit Gurmeet Hall 350.1.13.10 ity of CL[place] [phone] [address] 2020-01-05 2020-01-05 Outpatient R [facility] [id number] Univers 14:15:00 14:15:00 ity of [facility] 2020-01-05 2020-01-05 Outpatient P [facility] [id number] Univers 14:15:00 14:15:00 ity of [facility] 2020-01-04 2020-01-05 Office 2, [facility]- Genetic Consults [facility] [id number] Univers 12:14:02 09:23:22 Visit Matthew [facility] [id number] [facility]y of [id number] [id number] [address] 2020-01-04 2020-01-04 Outpatient R [facility] [id number] Univers 13:00:00 13:00:00 ity of [facility] 2020-01-04 2020-01-04 Outpatient P [facility] [id number] Univers 13:00:00 13:00:00 ity of [facility] 2020-01-03 2020-01-03 Tamale Maker Ultrasound, [facility] [id number] Univers 08:15:39 09:15:39 Visit Mayra Pinto [facility] [id number] ity of REGIONAL [id number] [place] as MATERNAL [id number] Med ical & CHILD [address] [place] [address] 2020-01-03 2020-01-03 Outpatient R [facility] [id number] Univers 08:00:00 08:00:00 ity [facility] 2020-01-03 2020-01-03 Outpatient R [facility] [id number] Univers 08:00:00 08:00:00 ity of [facility] 2019-12-12 2019-12-12 Outpatient R [facility] [id number] Univers 11:00:00 11:00:00 [id number] ity of [facility] 2019-12-12 2019-12-12 Outpatient R [facility] [id number] Univers 11:00:00 11:00:00 ity of [facility] [facility] 2019-12-06 2019-12-06 Initial [facility] 1.2.006.101 [id number] Univers 11:08:00 12:04:06 Faizan Murillo 350.1.13.10 ity of [place] [facility] [phone] Nd dical [address] 2019-12-06 2019-12-06 Outpatient R GORDON LADONNA [facility] [id number] [id number] Univers 11:00:00 11:00:00 [id number] ity of [facility] 2019-12-06 2019-12-06 Outpatient R GORDON [facility] [id number] Univers 11:00:00 11:00:00 ity of [facility] 2019-12-06 2019-12-06 Orders Doctor SCHAEFFER 1.2.840.114 [id number] Univers 00:00:00 00:00:00 Only Unassigned, JONE 350.1.13.10 ity of [facility] 4.2.7.2.686 Kostas as [phone] [address] 2019-11-28 2019-11-28 Emergency [facility] 1.2.258.821 [id number] Univers 16:03:00 19:22:00 Matthias Murillo 350.1.13.10 i ty of [place] [phone] [address] 2019-11-28 2019-11-28 Orders Doctor LAURY 1.2.840.114 [id number] Univers 00:00:00 00:00:00 Only Unassigned, JONE 350.1.13.10 ity of [facility] 4.2.7.2.686 [place] as [phone] [address] 2019-11-22 2019-11-22 Abstract [facility] 1.2.840.114 [id number] Univers 00:00:00 00:00:00 Kelsey Jewell [employer] 350.1.13.10 ity of REGIONAL 4.2.7.2.686 [place] as MATERNAL [phone] [facility] ical & CHILD 107 [facility] 2019-11-22 2019-11-22 Telephone Pob1, Acute [facility] 1.2.840.114 [id number] Univers 00:00:00 00:00:00 [facility] 350.1.13.10 ity of [place] 4.2.7.2.686 Kostas as Professio [phone] [address] 2019-11-18 2019-11-18 Laboratory Lab, Adc Fam Pob I [facility] 1.2. 840.114 [id number] Univers 10:40:23 11:00:23 Only [facility] 350.1.13.10 ity of [place] 4.2.7.2.686 [place]ostas as Professio [phone] [address] 2019-11-18 2019-11-18 Tamale Maker Ultrasound, Ang-Mfm [facility] 1.2 .840.114 [id number] Univers 10:00:28 10:24:10 Visit Amada Hernandez [employer] 350.1.13.10 ity [facility] 4.2.7.2.686 [place] as MATERNAL [phone] [facility] 369 [facility] 2019-11-18 2019-11-18 Outpatient P [facility] [id number] -[id number] Univers 10:00:00 10:00:00 [id number] ity of [facility] 2019-11-18 2019-11-18 Outpatient P [facility] [id number] Univers 10:00:00 10:00:00 ity of [facility] 2019-11-10 2019-11-10 Outpatient R [facility] [id number] -[id number] Univers 14:45:00 14:45:00 [id number] ity of [facility] 2019-11-10 2019-11-10 Outpatient P [facility] [id number] Univers 14:45:00 14:45:00 ity of [facility] 2019-11-07 2019-11-07 Telephone [place], [facility] 1.2.840.114 [id number] Univers 00:00:00 00:00:00 Kelsey Jewell [employer] 350.1.13.10 ity of REGIONAL 4.2.7.2.686 [place] as MATERNAL [phone] [facility] & CHILD [address] [place] [address] 2019-11-03 2019-11-03 [facility] 1.2.188.734 [id number] Univers 09:02:46 10:40:27 Kelsey Jewell [employer] 350.1.13.10 ity of Visit REGIONAL 4.2.7.2.686 [place] as MATERNAL [phone] [facility] & CHILD [address] [place] [address] 2019-11-03 2019-11-03 [facility] [id number] [facility] 08:30:00 08:30:00 KELSEY becerril o f [facility] 2018-01-27 2018-01-27 [facility] [id number] 16:01:00 16:01:00 [facility] 2018-01-26 2018-01-26 [facility] [id number] 13:20:00 13:20:00 [facility] 2017-11-18 2017-11-18 [facility] [id number] 15:15:00 15:15:00 [facility] Results Test Test Test Results Result Source Description Time Comments Comments FL TIME OR 2020-06- These images do not require University of (NON-REPORTABLE 24 a Radiology diagnostic [facility] ) 20:04:28 report. Branch US ABDOMEN 2020-06- Cholelithiasis without U niversity of LIMITED 24 sonographic evidence for [facility] 13:51:23 acute cholecystitis. Mild Branch hepatic [...] 8:52 AM CDTEXAMINATION:US ABDOMEN LIMITEDORDERING PHYSICIAN: BELÉN CRESPOCLINICAL HISTORY: Abdominal pain ;COMPARISON:CT abdomen and pelvis [...] Comme nts BILI CONJ (test code = 2147854913) 0.0 mg/dL 0.0-0.3 BILI UNCON (test code = 7193945322) 0.6 mg/dL 0.1-1.1 Lab Interpretation (test code = 92969-5) Normal [facility] (ID NOW RAPID TESTING)2020-07-18 13:20:12 Test Item Value Reference Range Interpretation Comments SARS-CoV-2 Rapid ID NOW Not Detected Not Detected (test code = 40619-8) TRISTON (test code = TRISTON) ID NOW COVID-19 Assay is an isothermal nucleic acid amplification test intended for the qualitative detection of nucleic acid from SARS-CoV-2 viral RNA in nasopharyngeal (DIGESTER COOK) specimens. It is used under Emergency Use [...] indicated. Lab Interpretation Normal (test code = 95329-0) [facility]URINALYSIS2021-03-24 12:30:58 Test Item Value Reference Range Interpretation Comments APPEARANCE (test code = Clear Clear 8880543029) COLOR (test code = Yellow Yellow 3469579933) PH (test code = 4.8-8.0 3735390608) SP GRAVITY (test code = 1.003-1.030 9157341313) GLU U QUAL (test code = Normal Normal 1110362813) BLOOD (test code = Negative Negative 8221859236) KETONES (test code = Negative Negative 5066503166) PROTEIN (test code = Negative Negative 2887-8) UROBILIN (test code = Normal Normal 5709551528) BILIRUBIN (test code = Negative Negative 1125229440) NITRITE (test code = Negative Negative 7556122954) LEUK VAHID (test code = 250/uL Negative A 8260584751) RBC/HPF (test code = See_Comment H [Autom ated message] 3278195364) The system [employer] generated this result transmitted ref erence range: 0 - 3 HP F. The reference range was not used to int erpret this result as normal/abnormal . WBC/HPF (test code = See_Comment H [Autom ated message] 1187237451) The system [employer] generated this result transmitted ref erence range: 0 - 5 HP F. The reference range was not used to int erpret this result as normal/abnormal . BACTERIA (test code = Few Negative A 0947540942) SQ EPITH (test code = HPF 9571182923) Lab Interpretation (test Abnormal code = 19607-4) [facility]COMP. METABOLIC PANEL (79099)2020-07-18 12:30:33 Test Item Value Reference Range Interpretation Comments NA (test code = 140 mmol/L 135-145 2165174644) K (test code = 4.2 mmol/L 3.5-5.0 2939626156) CL (test code = 108 mmol/L 98-108 4751206767) CO2 TOTAL (test code = 24 mmol/L 23-31 7104655399) AGAP (test code = 2-16 3759159194) BUN (test code = 13 mg/dL 7-23 8830822687) GLUCOSE (test code = 101 mg/dL 70-110 8181090402) CREATININE (test code = 0.47 mg/dL 0.50-1.04 L 5838073219) TOTAL BILI (test code = 0.8 mg/dL 0.1-1.7 8605991003) CALCIUM (test code = 8.7 mg/dL 8.6-10.6 3036267656) T PROTEIN (test code = 7.2 g/dL 6.3-8.2 2359971427) ALBUMIN (test code = 4.4 g/dL 3.5-5.0 1060592030) ALK PHOS (test code = 169 U/L 34-122 H 1634342279) ALTv (test code = 79 U/L 5-35 H 1742-6) AST(SGOT) (test code = 37 U/L 13-40 9497444656) eGFR Calculation mL/min/1.73m2 (Non-) (test code = 3529636367) eGFR Calculation mL/min/1.73m2 () (test code = 4516141429) TRISTON (test code = TRISTON) Association of [...] tests). Lab Interpretation Abnormal (test code = 99051-5) [facility]LIPASE2021-03-24 12:18:04 Test Item Value Reference Range Interpretation Comments LIPASE (test code = 4989811597) 127 U/L 0-220 Lab Interpretation (test code = Normal 55316-8) [facility]CB WITH [id number] 11:56:46 Test Item Value Reference Range Interpretation Comments WBC (test code = See_Comment [Automated 6690-2) message] The sy stem which [...] RDW-SD (test code = 42.2 fL 39.0-49.9 13734-2) RDW-CV (test code = 12.6 % 12.0-15.5 788-0) PLT (test code = See_Comment [Automated 777-3) message] The sy stem which generated this result transmitted reference range : 166 - 358 10*3/ ?L. The reference r dejuan was not used to interpret this result as normal/abnormal . MPV (test code = 11.0 fL 9.5-12.9 29177-1) NRBC/100 WBC (test See_Comment [Automat ed code = 5449236677) message] The system which generated this result transmitted reference range : 0.0 - 10.0 /100 WBCs. The refer ence range was not u sed to interpret th is result as normal/abnormal . NRBC x10^3 (test code <0.01 See_Comment [Auto mated = 0972722587) message] The s ystem which generated this result transmitted reference range : 10*3/?L. The reference range was not used to interpret this result as normal/abnormal . GRAN MAT (NEUT) % 73.4 % (test code = 770-8) IMM GRAN % (test code 0.40 % = 9089830384) LYMPH % (test code = 19.4 % 736-9) MONO % (test code = 4.8 % 5905-5) EOS % (test code = 1.5 % 713-8) BASO % (test code = 0.5 % 706-2) GRAN MAT x10^3(ANC) 8.01 10*3/uL 1.88-7.09 H (test code = 7197348215) IMM GRAN x10^3 (test 0.04 10*3/uL 0.00-0.06 code = 9239960982) LYMPH x10^3 (test code 2.12 10*3/uL 1.32-3.29 = 731-0) MONO x10^3 (test code 0.52 10*3/uL 0.33-0.92 = 742-7) EOS x10^3 (test code = 0.16 10*3/uL 0.03-0.39 711-2) BASO x10^3 (test code 0.05 10*3/uL 0.01-0.07 = 704-7) Lab Interpretation Abnormal (test code = 55589-5) [facility] CampusPOWY [id number] 11:36:00 Test Item Value Reference Range Interpretation Comments POCT PREG (test code = 1605) Negative On board controls acceptable with Present C Line (test code = 3574) POCT PREG LOT # (test code = HCG 5634698 3575) POCT PREG TEST DATE (test 12/25/2021 code = 3576) Lab Interpretation (test code = Normal 61420-0) [facility] ABDOMEN PELVIS W [id number] 08:04:39 No acute process identified in the abdomen or pelvis. Cholelithiasis without CT evidence for acute cholecystitis. RL: 460 [facility]: [id number] Ordering physician: MATTHIAS BEDOLLA Indication: Acute abdominal [...] - 07/10/2020 3:05 AM CDTOrdering physician: MATTHIAS STEELENAIndication: Acute abdominal painCOMPARISON: NoneTECHNIQUE: Axial images of [...] without CT evidence for acute cholecystitis.RL: 460AF: [id number] Electronically signed by Griselda Varner MD, PhD at07/10/2020 3:04 [facility] [id number] 06:46:26 Test Item Value Reference Range Interpretation Comments APPEARANCE (test code = Cloudy Clear A 7515674209) COLOR (test code = Yellow Yellow 8661944934) PH (test code = 4.8-8.0 3193267939) SP GRAVITY (test code = 1.003-1.030 0003428232) GLU U QUAL (test code = Normal Normal 9584170026) BLOOD (test code = Negative Negative 5176507136) KETONES (test code = Negative Negative 6826369381) PROTEIN (test code = Negative Negative 2887-8) UROBILIN (test code = Normal Normal 5804944833) BILIRUBIN (test code = Negative Negative 4255296739) NITRITE (test code = Negative Negative 4833205617) LEUK VAHID (test code = 25/uL Negative A 7255182219) RBC/HPF (test code = See_Comment [Autom ated message] 5640782434) The system [employer] generated this result transmitted ref erence range: 0 - 3 HP F. The reference range was not used to int erpret this result as normal/abnormal . WBC/HPF (test code = See_Comment H [Autom ated message] 3122291810) The system [employer] generated this result transmitted ref erence range: 0 - 5 HP F. The reference range was not used to int erpret this result as normal/abnormal . BACTERIA (test code = Many Negative A 5550804181) MUCOUS (test code = Slight Negative LPF A 3615362368) AMORPHOUS (test code = Moderate Rare HPF A 8284947538) SQ EPITH (test code = HPF 9901507799) Lab Interpretation (test Abnormal code = 04383-8) [facility]COMP. METABOLIC PANEL (80318)2020-07-10 06:33:53 Test Item Value Reference Range Interpretation Comments NA (test code = 139 mmol/L 135-145 8098716891) K (test code = 3.7 mmol/L 3.5-5.0 2154160976) CL (test code = 102 mmol/L 98-108 5858481831) CO2 TOTAL (test code = 29 mmol/L 23-31 4918930328) AGAP (test code = 2-16 4492105848) BUN (test code = 12 mg/dL 7-23 7574181443) GLUCOSE (test code = 118 mg/dL 70-110 H 5101987556) CREATININE (test code = 0.67 mg/dL 0.50-1.04 9198520153) TOTAL BILI (test code = 0.6 mg/dL 0.1-1.3 3136955031) CALCIUM (test code = 9.2 mg/dL 8.6-10.6 7256171078) T PROTEIN (test code = 7.2 g/dL 6.3-8.2 3167384570) ALBUMIN (test code = 4.6 g/dL 3.5-5.0 1319601465) ALK PHOS (test code = 168 U/L 34-122 H 4628550963) ALTv (test code = 111 U/L 5-35 H 1742-6) AST(SGOT) (test code = 30 U/L 13-40 5682227888) eGFR Calculation mL/min/1.73m2 (Non-) (test code = 1187907129) eGFR Calculation mL/min/1.73m2 () (test code = 0095238869) TRISTON (test code = TRISTON) Association of [...] tests). Lab Interpretation Abnormal (test code = 60511-0) [facility]LIP[facility]2021-03-16 06:33:18 Test Item Value Reference Range Interpretation Comments LIPASE (test code = 5602967364) 85 U/L 0-220 Lab Interpretation (test code = Normal 71006-0) [facility] WITH [id number] 06:24:16 Test Item Value Reference Range Interpretation Comments WBC (test code = See_Comment H [Automated 3990-2) message] The sy stem which generated this result transmitted reference range : 4.30 - 11.10 10*3/?L. The reference range was not used to interpret this result as normal/abnormal . RBC (test code = See_Comment [Automated 589-8) message] The sy stem which generated this [...] RDW-SD (test code = 43.1 fL 39.0-49.9 99632-8) RDW-CV (test code = 12.6 % 12.0-15.5 788-0) PLT (test code = See_Comment [Automated 277-3) message] The sy stem which generated this result transmitted reference range : 166 - 358 10*3/ ?L. The reference r dejuan was not used to interpret this result as normal/abnormal . MPV (test code = 10.1 fL 9.5-12.9 50818-9) NRBC/100 WBC (test See_Comment [Automat ed code = 0865080824) message] The system which generated this result transmitted reference range : 0.0 - 10.0 /100 WBCs. The refer ence range was not u sed to interpret th is result as normal/abnormal . NRBC x10^3 (test code <0.01 See_Comment [Auto mated = 0661018782) message] The s ystem which generated this result transmitted reference range : 10*3/?L. The reference range was not used to interpret this result as normal/abnormal . GRAN MAT (NEUT) % 83.3 % (test code = 770-8) IMM GRAN % (test code 0.30 % = 0570975212) LYMPH % (test code = 12.4 % 736-9) MONO % (test code = 2.8 % 5905-5) EOS % (test code = 0.8 % 713-8) BASO % (test code = 0.4 % 706-2) GRAN MAT x10^3(ANC) 9.80 10*3/uL 1.88-7.09 H (test code = 3874167710) IMM GRAN x10^3 (test 0.04 10*3/uL 0.00-0.06 code = 1052338965) LYMPH x10^3 (test code 1.46 10*3/uL 1.32-3.29 = 731-0) MONO x10^3 (test code 0.33 10*3/uL 0.33-0.92 = 742-7) EOS x10^3 (test code = 0.09 10*3/uL 0.03-0.39 711-2) BASO x10^3 (test code 0.05 10*3/uL 0.01-0.07 = 704-7) Lab Interpretation Abnormal (test code = 48599-7) [facility] [id number] 06:00:00 Test Item Value Reference Range Interpretation Comments POCT PREG (test code = 1605) negative On board controls acceptable with present C Line (test code = 3574) POCT PREG LOT # (test code = 3575) [id number] POCT PREG TEST DATE (test 2022-02-24 code = 3576) Lab Interpretation (test code = Normal 22113-6) [facility] CampusPOCT [id number] 22:58:00 Test Item Value Reference Range Interpretation Comments POCT PREG (test code = 1605) Negative On board controls acceptable with C Yes Line (test code = 3574) POCT PREG LOT # (test code = 3575) POCT PREG TEST DATE (test code = 3576) Lab Interpretation (test code = Normal 69442-9) [facility] [id number] 22:58:00 Test Item Value Reference Range Interpretation Comments POCT PREG (test code = 1605) Negative On board controls acceptable with C Yes Line (test code = 3574) POCT PREG LOT # (test code = 3575) POCT PREG TEST DATE (test code = 3576) Lab Interpretation (test code = Normal 04688-7) [facility]PO[facility] [id number] 22:58:00 Test Item Value Reference Range Interpretation Comments POCT PREG (test code = 1605) Negative On board controls acceptable with C Yes Line (test code = 3574) POCT PREG LOT # (test code = 3575) POCT PREG TEST DATE (test code = 3576) Lab Interpretation (test code = Normal 33509-1) [facility]PO[facility] [id number] 22:58:00 Test Item Value Reference Range Interpretation Comments POCT PREG (test code = 1605) Negative On board controls acceptable with C Yes Line (test code = 3574) POCT PREG LOT # (test code = 3575) POCT PREG TEST DATE (test code = 3576) Lab Interpretation (test code = Normal 71397-2) [facility] CampusHepatic Function Panel (ALB, T.PRO, BILI T, BU/BC, ALT, AST, ALK PHOS)2020-05-18 08:40:00 Test Item Value Reference Range Interpretation Comments TOTAL BILI (test code = 7065606781) 0.5 mg/dL 0.1-1.1 BILI UNCON (test code = 1227228662) 0.3 mg/dL 0.1-1.1 BILI CONJ (test code = 7001957242) 0.0 mg/dL 0-0.3 T PROTEIN (test code = 8807279555) 6.9 g/dL 6.3-8.2 ALBUMIN (test code = 5924762092) 4.0 g/dL 3.5-5 ALK PHOS (test code = 1458156486) 188 U/L 34-122 H ALTv (test code = 1742-6) 228 U/L 5-35 H AST(SGOT) (test code = 2206843264) 104 U/L 13-40 H Lab Interpretation (test code = Abnormal 37991-7) [facility]Hep[facility] Function Panel (ALB, T.PRO, BILI T, BU/BC, ALT, AST, ALK PHOS)2020-05-18 08:40:00 Test Item Value Reference Range Interpretation Comments TOTAL BILI (test code = 7643134709) 0.5 mg/dL 0.1-1.1 BILI UNCON (test code = 2989207924) 0.3 mg/dL 0.1-1.1 BILI CONJ (test code = 9401991266) 0.0 mg/dL 0-0.3 T PROTEIN (test code = 8410248789) 6.9 g/dL 6.3-8.2 ALBUMIN (test code = 4099385254) 4.0 g/dL 3.5-5 ALK PHOS (test code = 0780724581) 188 U/L 34-122 H ALTv (test code = 1742-6) 228 U/L 5-35 H AST(SGOT) (test code = 8419629070) 104 U/L 13-40 H Lab Interpretation (test code = Abnormal 29605-6) [facility] CampusBasic Metabolic Panel (NA, K, CL, CO2, GLUCOSE, BUN, CREATININE, CA)2020-05-18 08:39:00 Test Item Value Reference Range Interpretation Comments NA (test code = 138 mmol/L 135-145 4717872079) K (test code = 3.9 mmol/L 3.5-5 6075261903) CL (test code = 105 mmol/L 98-108 4908012715) CO2 TOTAL (test code = 24 mmol/L 23-31 0875910735) AGAP (test code = 2-16 6619227424) BUN (test code = 13 mg/dL 7-23 0181205098) GLUCOSE (test code = 103 mg/dL 70-110 1481385017) CREATININE (test code 0.78 mg/dL 0.5-1.04 = 3789065418) CALCIUM (test code = 8.9 mg/dL 8.6-10.6 8394852439) eGFR Calculation mL/min/1.73m2 (Non-) (test code = 4126867330) eGFR Calculation mL/min/1.73m2 () (test code = 4505852214) TRISTON (test code = TRISTON) Association of [...] or urine or abnormalities in imaging tests). [facility] CampusLipase [id number] 08:39:00 Test Item Value Reference Range Interpretation Comments LIPASE (test code = 4310697590) 108 U/L 0-220 Lab Interpretation (test code = Normal 33224-4) [facility] CampusTroponin [id number] 08:39:00 Test Item Value Reference Range Interpretation Comments TROPONIN I (test <0.012 See_Comment [Automated code = 5351954825) message] The system which generated this result [...] ? Lab Interpretation Normal (test code = 61337-4) [facility] CampusBasi Metabolic Panel (NA, K, CL, CO2, GLUCOSE, BUN, CREATININE, CA)2020-05-18 08:39:00 Test Item Value Reference Range Interpretation Comments NA (test code = 138 mmol/L 135-145 2967372677) K (test code = 3.9 mmol/L 3.5-5 9661025235) CL (test code = 105 mmol/L 98-108 2791616677) CO2 TOTAL (test code = 24 mmol/L 23-31 9674942161) AGAP (test code = 2-16 4248174469) BUN (test code = 13 mg/dL 7-23 2717478344) GLUCOSE (test code = 103 mg/dL 70-110 9371407193) CREATININE (test code 0.78 mg/dL 0.5-1.04 = 0315895431) CALCIUM (test code = 8.9 mg/dL 8.6-10.6 7890736696) eGFR Calculation mL/min/1.73m2 (Non-) (test code = 8547535787) eGFR Calculation mL/min/1.73m2 () (test code = 3369236567) TRISTON (test code = TRISTON) Association of [...] or urine or abnormalities in imaging tests). [facility] CampusLipase [id number] 08:39:00 Test Item Value Reference Range Interpretation Comments LIPASE (test code = 8121534647) 108 U/L 0-220 Lab Interpretation (test code = Normal 61222-8) [facility] CampusTroponin [id number] 08:39:00 Test Item Value Reference Range Interpretation Comments TROPONIN I (test <0.012 See_Comment [Automated code = 2039027764) message] The system which generated this result [...] ? Lab Interpretation Normal (test code = 09406-1) [facility] with [id number] 08:09:00 Test Item Value Reference Range Interpretation Comments WBC (test code = See_Comment H [Automated 3190-2) message] The sy stem which generated this result transmitted reference range : 4.30 - 11.10 10*3/?L. The reference range was not used to interpret this result as normal/abnormal . RBC (test code = See_Comment [Automated 989-8) message] The sy stem which generated this [...] RDW-SD (test code = 40.8 fL 39-49.9 04481-3) RDW-CV (test code = 11.9 % 12-15.5 L 788-0) PLT (test code = See_Comment [Automated 777-3) message] The sy stem which generated this result transmitted reference range : 166 - 358 10*3/ ?L. The reference r dejuan was not used to interpret this result as normal/abnormal . MPV (test code = 12.2 fL 9.5-12.9 60720-8) NRBC/100 WBC (test See_Comment [Automat ed code = 8122477650) message] The system which generated this result transmitted reference range : 0.0 - 10.0 /100 WBCs. The refer ence range was not u sed to interpret th is result as normal/abnormal . NRBC x10^3 (test code <0.01 See_Comment [Auto mated = 2136870148) message] The s ystem which generated this result transmitted reference range : 10*3/?L. The reference range was not used to interpret this result as normal/abnormal . GRAN MAT (NEUT) % 73.1 % (test code = 770-8) IMM GRAN % (test code 0.40 % = 5966851513) LYMPH % (test code = 20.3 % 736-9) MONO % (test code = 3.7 % 5905-5) EOS % (test code = 2.1 % 713-8) BASO % (test code = 0.4 % 706-2) GRAN MAT x10^3(ANC) 8.18 10*3/uL 1.88-7.09 H (test code = 8663928421) IMM GRAN x10^3 (test 0.05 10*3/uL 0-0.06 code = 1781007158) LYMPH x10^3 (test code 2.28 10*3/uL 1.32-3.29 = 731-0) MONO x10^3 (test code 0.42 10*3/uL 0.33-0.92 = 742-7) EOS x10^3 (test code = 0.23 10*3/uL 0.03-0.39 711-2) BASO x10^3 (test code 0.05 10*3/uL 0.01-0.07 = 704-7) Lab Interpretation Abnormal (test code = 44603-8) [facility] with [id number] 08:09:00 Test Item Value Reference Range Interpretation Comments WBC (test code = See_Comment H [Automated 9690-2) message] The sy stem which generated this [...] RDW-SD (test code = 40.8 fL 39-49.9 64172-5) RDW-CV (test code = 11.9 % 12-15.5 L 788-0) PLT (test code = See_Comment [Automated 777-3) message] The sy stem which generated this result transmitted reference range : 166 - 358 10*3/ ?L. The reference r dejuan was not used to interpret this result as normal/abnormal . MPV (test code = 12.2 fL 9.5-12.9 60897-8) NRBC/100 WBC (test See_Comment [Automat ed code = 8357930051) message] The system which generated this result transmitted reference range : 0.0 - 10.0 /100 WBCs. The refer ence range was not u sed to interpret th is result as normal/abnormal . NRBC x10^3 (test code <0.01 See_Comment [Auto mated = [id number]) message] The s ystem which generated this result transmitted reference range : 10*3/?L. The reference range was not used to interpret this result as normal/abnormal . GRAN MAT (NEUT) % 73.1 % (test code = 770-8) IMM GRAN % (test code 0.40 % = 8411248017) LYMPH % (test code = 20.3 % 736-9) MONO % (test code = 3.7 % 5905-5) EOS % (test code = 2.1 % 713-8) BASO % (test code = 0.4 % 706-2) GRAN MAT x10^3(ANC) 8.18 10*3/uL 1.88-7.09 H (test code = 2365264802) IMM GRAN x10^3 (test 0.05 10*3/uL 0-0.06 code = 7754941876) LYMPH x10^3 (test code 2.28 10*3/uL 1.32-3.29 = 731-0) MONO x10^3 (test code 0.42 10*3/uL 0.33-0.92 = 742-7) EOS x10^3 (test code = 0.23 10*3/uL 0.03-0.39 711-2) BASO x10^3 (test code 0.05 10*3/uL 0.01-0.07 = 704-7) Lab Interpretation Abnormal (test code = 12315-1) [facility] NON-STRESS TEST 2020-04-18 19:57:52NST: 130, moderate variability, +accels, no decelsBPP 02/03Toco: quiescentUnAd[facility]POCT URINALYSIS W/O SPECIFIC [id number] 01:12:00 Test Item Value Reference Range Interpretation [...] code = 3257) na Negative - Negative [facility] NON-STRESS [id number] 01:04:39 Reactive and reassuringToco quiescent Ladonna Leyva MD ?04/16/2020 ?7:04 PM [facility] NON-STRESS [id number] 01:37:59 Reactive and reassuringToco quiescent Ladonna Leyva MD ?04/12/2020 ?7:37 PM [facility] NON-STRESS [id number] 22:01:18 [facility] [id number] 22:09:20NST reactive and [facility]Un[facility] NON-STRESS [id number] 22:09:20NST reactive and reassuring [facility] NON-STRESS [id number] 22:07:24 Reactive and reassuringToco quiescent Ladonna Leyva MD ?03/21/2020 ?4:07 PM [facility]CONSENT TO CONTACT FOR VOLUNTARY RESEARCH 2019-12-06 16:09:25 Test Item Value Reference Range Interpretation Comments Consent To Contact For Voluntary Yes Research (test code = 4947) [facility]2020-08-03 23:39:00 Test Item Value Reference Range Interpretation Comments APPEARANCE (test code = Hazy Clear A 9844080646) COLOR (test code = Yellow Yellow 4720377638) PH (test code = 4.8-8.0 4839211418) SP GRAVITY (test code = 1.003-1.030 7888693026) GLU U QUAL (test code = Normal Normal 1712654128) BLOOD (test code = Negative Negative 8871458677) KETONES (test code = 5 mg/dL Negative A 6148724147) PROTEIN (test code = Negative Negative 2887-8) UROBILIN (test code = Normal Normal 4333845418) BILIRUBIN (test code = Negative Negative 0052274521) NITRITE (test code = Negative Negative 4489107562) LEUK VAHID (test code = Negative Negative 0463417104) RBC/HPF (test code = See_Comment [Autom ated message] 3607675714) The system [employer] generated this result transmitted ref erence range: 0 - 3 HP F. The reference range was not used to int erpret this result as normal/abnormal . WBC/HPF (test code = See_Comment [Autom ated message] 8321011993) The system [employer] generated this result transmitted ref erence range: 0 - 5 HP F. The reference range was not used to int erpret this result as normal/abnormal . BACTERIA (test code = Moderate Negative A 9322634068) MUCOUS (test code = Slight Negative LPF A 7202094062) SQ EPITH (test code = HPF 0934486529) Lab Interpretation (test Abnormal code = 31318-1) [facility]. METABOLIC PANEL (72423)2019-11-28 22:30:00 Test Item Value Reference Range Interpretation Comments NA (test code = 133 mmol/L 135-145 L 9758572904) K (test code = 3.8 mmol/L 3.5-5 6989597331) CL (test code = 107 mmol/L 98-108 3381916936) CO2 TOTAL (test code = 23 mmol/L 23-31 4582775642) AGAP (test code = 2-16 0068635850) BUN (test code = 2 mg/dL 7-23 L 2346005474) GLUCOSE (test code = 81 mg/dL 70-110 4823515770) CREATININE (test code = 0.34 mg/dL 0.5-1.04 L 2984523563) TOTAL BILI (test code = 0.6 mg/dL 0.1-1.9 7205369663) CALCIUM (test code = 9.0 mg/dL 8.6-10.6 8033418791) T PROTEIN (test code = 6.2 g/dL 6.3-8.2 L 5584586609) ALBUMIN (test code = 3.2 g/dL 3.5-5 L 1433230263) ALK PHOS (test code = 82 U/L 34-122 2270618652) ALTv (test code = 12 U/L 5-35 1742-6) AST(SGOT) (test code = 17 U/L 13-40 9701418010) eGFR Calculation mL/min/1.73m2 (Non-) (test code = 3411865606) eGFR Calculation mL/min/1.73m2 () (test code = 0968955719) TRISTON (test code = TRISTON) Association of [...] tests). Lab Interpretation Abnormal (test code = 04381-6) [facility] WITH [id number] 21:54:00 Test Item Value Reference Range Interpretation Comments WBC (test code = See_Comment H [Automated 0790-2) message] The sy stem which generated this [...] RDW-SD (test code = 39.8 fL 39-49.9 33722-6) RDW-CV (test code = 12.0 % 12-15.5 788-0) PLT (test code = See_Comment [Automated 777-3) message] The sy stem which generated this result transmitted reference range : 166 - 358 10*3/ ?L. The reference r dejuan was not used to interpret this result as normal/abnormal . MPV (test code = 11.1 fL 9.5-12.9 86855-3) NRBC/100 WBC (test See_Comment [Automat ed code = 2401314950) message] The system which generated this result transmitted reference range : 0.0 - 10.0 /100 WBCs. The refer ence range was not u sed to interpret th is result as normal/abnormal . NRBC x10^3 (test code <0.01 See_Comment [Auto mated = 5373727167) message] The s ystem which generated this result transmitted reference range : 10*3/?L. The reference range was not used to interpret this result as normal/abnormal . GRAN MAT (NEUT) % 78.1 % (test code = 770-8) IMM GRAN % (test code 0.60 % = 7109083236) LYMPH % (test code = 14.5 % 736-9) MONO % (test code = 4.8 % 5905-5) EOS % (test code = 1.7 % 713-8) BASO % (test code = 0.3 % 706-2) GRAN MAT x10^3(ANC) 8.84 10*3/uL 1.88-7.09 H (test code = 4877429802) IMM GRAN x10^3 (test 0.07 10*3/uL 0-0.06 H code = 5267013947) LYMPH x10^3 (test code 1.64 10*3/uL 1.32-3.29 = 731-0) MONO x10^3 (test code 0.54 10*3/uL 0.33-0.92 = 742-7) EOS x10^3 (test code = 0.19 10*3/uL 0.03-0.39 711-2) BASO x10^3 (test code 0.03 10*3/uL 0.01-0.07 = 704-7) Lab Interpretation Abnormal (test code = 75582-7) [facility] URINALYSIS W/O SPECIFIC [id number] 14:11:00 Test Item Value Reference Range Interpretation [...] code = 3257) Neg Negative - Negative [facility] URINALYSIS W/O SPECIFIC [id number] 14:11:00 Test Item Value Reference Range Interpretation [...] code = 3257) Neg Negative - Negative [facility] [id number] 14:10:00 Test Item Value Reference Range Interpretation Comments POCT PREG (test code = 1605) Positive On board controls acceptable with C Yes Line (test code = 3574) POCT PREG LOT # (test code = 3575) POCT PREG TEST DATE (test code = 3576) [facility]PO[facility] [id number] 14:10:00 Test Item Value Reference Range Interpretation Comments POCT PREG (test code = 1605) Positive On board controls acceptable with C Yes Line (test code = 3574) POCT PREG LOT # (test code = 3575) POCT PREG TEST DATE (test code = 3576) [facility]HIV[facility] ANTIGEN WITH HIV-1/2 [id number] 16:26:00 Test Item Value Reference Range Interpretation Comments HIV-1 ANTIGEN WITH HIV 1\\T\\2 Nonreactive Nonreactive ANTIBODY (2) (BEAKER) (test code = 2586) BASIC METABOLIC [id number] 06:30:00 Test Item Value Reference Range Interpretation [...] m DATA TO CALCULA TE ESTIMATED GFR. [id number] 06:19:00 Test Item Value Reference Range Interpretation Comments PHOSPHORUS (BEAKER) (test code = 1.9 mg/dL 2.3-4.7 L 604) [id number] 06:19:00 Test Item Value Reference Range Interpretation Comments MAGNESIUM (BEAKER) (test code = 1.8 mg/dL 1.6-2.6 627) HEPATIC FUNCTION [id number] 06:19:00 Test Item Value Reference Range Interpretation [...] 6-55 347) CBC W/PLT COUNT & AUTO [id number] 06:11:00 Test Item Value Reference Range Interpretation [...] (BEAKER) (test code = 2801) BASIC METABOLIC [id number] 10:11:00 Test Item Value Reference Range Interpretation [...] m DATA TO CALCULA TE ESTIMATED GFR. [id number] 09:56:00 Test Item Value Reference Range Interpretation Comments PHOSPHORUS (BEAKER) (test code = 1.6 mg/dL 2.3-4.7 L 604) [id number] 09:56:00 Test Item Value Reference Range Interpretation Comments MAGNESIUM (BEAKER) (test code = 2.0 mg/dL 1.6-2.6 627) HEPATIC FUNCTION [id number] 09:56:00 Test Item Value Reference Range Interpretation [...] 6-55 347) CBC W/PLT COUNT & AUTO [id number] 09:53:00 Test Item Value Reference Range Interpretation [...] % 0-1 PERCENT (BEAKER) (test code = 4274)"
--- NOTE | 2021-07-07 12:19 | EDPHYS ---
Physician Documentation [facility] Name: Elle Man Age: 31 yrs Sex: Female : 1990 Arrival Date: 07/07/2021 Time: 11:42 Bed 18 Private MD: ED Physician Calin Weir HPI: 07/07 12:15 This 31 yrs old Female presents to ER via Ambulatory with complaints of MENTAL vicki EVAL. 12:15 The patient presents to the emergency department with depression, suicide ideation, but vicki the patient has no formulated plan. Onset: The symptoms/episode began/occurred 2 day(s) ago. Past psychiatric history: Prior diagnosis: depression. Associated signs and symptoms: The patient has no apparent associated signs or symptoms. Severity of symptoms: At their worst the symptoms were moderate in the emergency department the symptoms are unchanged. The patient has not experienced similar symptoms in the past. 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 - Social history:: Smoking status: Patient denies any tobacco usage or history of. Patient/guardian denies using alcohol, street drugs. - Family history:: not pertinent. ROS: 12:15 Constitutional: Negative for fever, chills, and weight loss, Eyes: Negative for injury, vicki pain, redness, and discharge, ENT: Negative for injury, pain, and discharge, Neck: Negative for injury, pain, and swelling, Cardiovascular: Negative for chest pain, palpitations, and edema, Respiratory: Negative for shortness of breath, cough, wheezing, and pleuritic chest pain, Abdomen/GI: Negative for abdominal pain, nausea, vomiting, diarrhea, and constipation, Back: Negative for injury and pain, : Negative for injury, bleeding, discharge, and swelling, MS/Extremity: Negative for injury and deformity, Skin: Negative for injury, rash, and discoloration, Neuro: Negative for headache, weakness, numbness, tingling, and seizure, Allergy/Immunology: Negative for hives, rash, and allergies, Endocrine: Negative for neck swelling, polydipsia, polyuria, polyphagia, and marked weight changes, Hematologic/Lymphatic: Negative for swollen nodes, abnormal bleeding, and unusual bruising. 12:15 Psych: Positive for depression, suicidal ideation. Exam: 12:15 Constitutional: This is a well developed, well nourished patient who is awake, alert, vicki and in no acute distress. Head/Face: Normocephalic, atraumatic. Eyes: Pupils equal round and reactive to light, extra-ocular motions intact. Lids and lashes normal. Conjunctiva and sclera are non-icteric and not injected. Cornea within normal limits. Periorbital areas with no swelling, redness, or edema. ENT: Nares patent. No nasal discharge, no septal abnormalities noted. Tympanic membranes are normal and external auditory canals are clear. Oropharynx with no redness, swelling, or masses, exudates, or evidence of obstruction, uvula midline. Mucous membranes moist. Neck: Trachea midline, no thyromegaly or masses palpated, and no cervical lymphadenopathy. Supple, full range of motion without nuchal rigidity, or vertebral point tenderness. No Meningismus. Chest/axilla: Normal chest wall appearance and motion. Nontender with no deformity. No lesions are appreciated. Cardiovascular: Regular rate and rhythm with a normal S1 and S2. No gallops, murmurs, or rubs. Normal PMI, no JVD. No pulse deficits. Respiratory: Lungs have equal breath sounds bilaterally, clear to auscultation and percussion. No rales, rhonchi or wheezes noted. No increased work of breathing, no retractions or nasal flaring. Abdomen/GI: Soft, non-tender, with normal bowel sounds. No distension or tympany. No guarding or rebound. No evidence of tenderness throughout. Back: No spinal tenderness. No costovertebral tenderness. Full range of motion. Skin: Warm, dry with normal turgor. Normal color with no rashes, no lesions, and no evidence of cellulitis. MS/ Extremity: Pulses equal, no cyanosis. Neurovascular intact. Full, normal range of motion. Neuro: Awake and alert, GCS 15, oriented to person, place, time, and situation. Cranial nerves II-XII grossly intact. Motor strength 5/5 in all extremities. Sensory grossly intact. Cerebellar exam normal. Normal gait. Psych: Awake, alert, with orientation to person, place and time. Behavior, mood, and affect are within normal limits. 13:59 ECG was reviewed by the Attending Physician. [facility] Vital Signs: 11:44 BP 127 / 89; Pulse 61; Resp 18; Temp 97.7; Pulse Ox 100% on R/A; Weight 99.79 kg; ww Height 5 ft. 11 in. (180.34 cm); Pain 0/10; 20:26 BP 112 / 88; Pulse 62; Resp 16; Temp 98.1; Pulse Ox 100% ; ds4 11:44 Body Mass Index 30.68 (99.79 kg, 180.34 cm) ww MDM: 11:48 Patient medically screened. [facility] 12:17 Differential diagnosis: drug withdrawal. depression. Data reviewed: vital signs, nurses [facility] notes, lab test result(s), EKG. Data interpreted: threat monitoring analyst: rate is 61 beats/min, rhythm is regular, Pulse oximetry: on room air is 100 %. Test interpretation: by ED physician or midlevel provider: ECG. Counseling: I had a detailed discussion with the patient and/or guardian regarding: the historical points, exam findings, and any diagnostic results supporting the discharge/admit diagnosis, lab results, radiology results, the need to transfer to another facility, for higher level of care, [facility] does not immediately have the required specialist. 21:23 ED course: Well-appearing, no acute distress, vital signs stable, no focal neurological mh7 deficits. Awake, alert, oriented x4,. No suicidal or homicidal ideation. No auditory visual hallucinations. She expresses no plan to harm herself or anyone else. Patient requested discharge from the ED. She arrived to the ED voluntarily. Discussed all test results and findings. She states that she has an appointment with her doctor in the next 2 days for depression. She has a friend who is coming to the ED to pick her up. She has a safe environment to go to upon discharge.. 07/07 12:13 Order name: Acetaminophen; Complete Time: 13:45 [facility] 07/07 12:13 Order name: Basic Metabolic Panel; Complete Time: 13:45 [facility] 07/07 12:13 Order name: CBC with Diff; Complete Time: 13:19 [facility] 07/07 12:13 Order name: ETOH Level; Complete Time: 13:19 [facility] 07/07 12:13 Order name: Hepatic Function; Complete Time: 13:45 [facility] 07/07 12:13 Order name: PT-INR; Complete Time: 13:19 [facility] 07/07 12:13 Order name: Ptt, Activated; Complete Time: 13:19 [facility] 07/07 12:13 Order name: Salicylate; Complete Time: 13:45 [facility] 07/07 12:13 Order name: Urine Drug Screen [facility] 07/07 12:13 Order name: SARS-COV-2 RT PCR (Document "Date of Onset" if Symptomatic); Complete Time: vicki 20:29 07/07 21:03 Order name: Urine Dipstick-Ancillary; Complete Time: 21:22 EDMS 07/07 21:10 Order name: Urine --Ancillary (enter results) lp1 07/07 12:13 Order name: EKG; Complete Time: 12:13 [facility] 07/07 12:13 Order name: EKG - Nurse/Tech; Complete Time: 13:36 [facility] 07/07 12:13 Order name: IV Saline Lock; Complete Time: 13:01 [facility] 07/07 12:13 Order name: Labs collected and sent; Complete Time: 13:01 [facility] 07/07 12:13 Order name: Suicide Precautions; Complete Time: 13:01 [facility] 07/07 12:13 Order name: Suicide Screening ([place]); Complete Time: 13:01 [facility] 07/07 12:13 Order name: Urine Dipstick-Ancillary (obtain specimen); Complete Time: 21:10 [facility] 07/07 12:13 Order name: Urine Test (obtain specimen); Complete Time: 21:10 [facility] 07/07 13:47 Order name: PO challenge: juice; Complete Time: 14:02 [facility] 07/07 15:59 Order name: Diet Finger Food; Complete Time: 16:00 jd3 EC:59 Rate is 52 beats/min. Rhythm is regular. QRS [place] is Normal. [place] interval is normal. QRS vicki interval is normal. QT interval is normal. No Q waves. T waves are Normal. T waves are Inverted in leads V1, V2, V3, V4. No ST changes noted. Clinical impression: NSR w/ Non-specific ST/T Changes and No evidence of ischemia. Interpreted by me. Reviewed by me. Administered Medications: 13:25 Drug: Tylenol 1000 mg Route: PO; jd3 14:20 Follow up: Response: No adverse reaction jd3 14:50 Drug: Potassium Effervescent Tablet 50 mEq Route: PO; ag7 15:30 Follow up: Response: No adverse reaction ag7 15:50 Follow up: Response: No adverse reaction ag7 15:51 Drug: Potassium Effervescent Tablet 50 mEq Route: PO; ag7 16:20 Follow up: Response: No adverse reaction ag7 Disposition Summary: 07/07/21 21:29 Discharge Ordered Location: Home mh7 Problem: new(07/07/21 21:29) [facility] Symptoms: have improved(07/07/21 21:29) m[facility]7 Condition: Stable(07/07/21 21:29) [facility] Diagnosis - Major depressive disorder, single episode, unspecified 7 - Hypokalemia(07/07/21 21:29) mh7 - UTI/ Urinary tract infection, site not specified [facility] Followup: [facility] - With: Private Physician - When: 1 - 2 days - Reason: Worsening of condition, Recheck today's complaints, Continuance of care, Re-evaluation by your physician Followup: [facility] - With: Balaji Rosenberg MD - When: 1 - 2 days - Reason: Worsening of condition, Recheck today's complaints Discharge Instructions: - Discharge Summary Sheet [facility] - Urinary Tract Infection, Adult, Yord-eh-Zocc 7 - Hypokalemia 7 - Major Depressive Disorder, Adult, Lovj-mi-Vtzn [facility] Forms: - Medication Reconciliation Form [facility] - Thank You Letter [facility] - Antibiotic Education [facility] - Prescription Opioid Use [facility] Prescriptions: - Macrobid 100 mg Oral Capsule - take 1 capsule by ORAL route every 12 hours for 7 days; 14 capsule; Refills: 0, 7 Product Selection Permitted Signatures: Dispatcher [employer] Jonathan Newberry MD MD cha Davies, Jonathon, RN RN jd3 Holmes, Maurice, MD MD Dari Hinds RN RN ww Glenn, Angela, RN RN 7 Corrections: (The following items were deleted from the chart) 13:58 12:18 to Psych vicki vicki 21:27 12:18 Psych Facility vicki mh7 21:27 12:18 Higher level of care vicki mh7 21:27 12:18 Fair vicki mh7 21:27 12:18 new vicki mh7 12:18 have improved [facility] 12:18 Major depressive disorder, single episode, moderate [facility] 12:18 Suicidal ideations [facility] 13:58 to Psych [facility] 13:58 Hypokalemia [facility] 21:27 to Psych [place] [id number]
--- NOTE | 2021-07-07 12:19 | ER ---
Nurse's Notes [facility] Name: Elle Man Age: 31 yrs Sex: Female : 1990 Arrival Date: 07/07/2021 Time: 11:42 Bed 18 Private MD: Diagnosis: Major depressive disorder, single episode, unspecified;Hypokalemia;UTI/ Urinary tract infection, site not specified Presentation: 07/07 11:44 Chief complaint: Patient states: Started having depression 4 days ago with no event ww that triggered. She states she has thoughts about wanting to hurt herself but does not have a plan. Denies any hallucinations or wanting to hurt anyone.. Coronavirus screen: Vaccine status: Patient reports being unvaccinated. Client denies travel out of the [place] in the last 14 days. Ebola Screen: Patient denies travel to an Ebola-affected area in the 21 days before illness onset. Initial Sepsis Screen: Does the patient meet any 2 criteria? No. Patient's initial sepsis screen is negative. Does the patient have a suspected source of infection? No. Patient's initial sepsis screen is negative. Risk Assessment: Do you want to hurt yourself or someone else? Patient reports no desire to harm self or others. Onset of symptoms is unknown. 11:44 Method Of Arrival: Ambulatory ww 11:44 Acuity: [place] 2 ww Triage Assessment: 11:47 General: Appears well developed, Behavior is anxious, crying. Pain: Denies pain. Neuro: ww Level of Consciousness is awake, alert, obeys commands, Oriented to person, place, time, situation, Moves all extremities. Gait is steady, Speech is normal. Cardiovascular: Capillary refill < 3 seconds Patient's skin is warm and dry. Chest pain is denied. Respiratory: Airway is patent Respiratory effort is even, unlabored, Respiratory pattern is regular, symmetrical. GI: No signs and/or symptoms were reported involving the gastrointestinal system. : No signs and/or symptoms were reported regarding the genitourinary system. Derm: No signs and/or symptoms reported regarding the dermatologic system. Skin is intact, is healthy with good turgor. 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 - Social history:: Smoking status: Patient denies any tobacco usage or history of. Patient/guardian denies using alcohol, street drugs. - Family history:: not pertinent. Screenin:48 Abuse screen: Denies threats or abuse. Denies injuries from another. Nutritional ww screening: No deficits noted. Tuberculosis screening: No symptoms or risk factors identified. Fall Risk None identified. Assessment: 12:58 General: Appears in no apparent distress. unkempt, Behavior is calm, cooperative, flat, ag7 Smells of Reports Denies. Pain: Complains of pain in face Pain does not radiate. Pain currently is 7 out of 10 on a pain scale. Quality of pain is described as aching, Pain began suddenly, Is continuous. Neuro: Level of Consciousness is awake, alert, obeys commands, Oriented to person, place, time, situation, flat affect. Moves all extremities. in bilateral Cardiovascular: Heart tones S1 S2 present Capillary refill < 3 seconds is brisk Clubbing of nail beds Patient's skin is warm and dry. Pulses are 2+ in right radial artery and left radial artery. Respiratory: Airway is patent Trachea midline Respiratory effort is even, unlabored, Respiratory pattern is regular, symmetrical, Breath sounds are clear bilaterally. GI: Abdomen is round non-distended. : No signs and/or symptoms were reported regarding the genitourinary system. 13:02 Reassessment: Patient and/or family updated on plan of care and expected duration. Pain ll1 level reassessed. Patient is alert, oriented x 3, equal unlabored respirations, skin warm/dry/pink. 14:00 Reassessment: No changes from previously documented assessment. Patient and/or family ag7 updated on plan of care and expected duration. Pain level reassessed. Patient is alert, oriented x 3, equal unlabored respirations, skin warm/dry/pink. Patient denies pain at this time. 15:00 Reassessment: No changes from previously documented assessment. Patient and/or family ag7 updated on plan of care and expected duration. Pain level reassessed. Patient is alert, oriented x 3, equal unlabored respirations, skin warm/dry/pink. Patient denies pain at this time. 15:55 Reassessment: No changes from previously documented assessment. Patient and/or family ag7 updated on plan of care and expected duration. Pain level reassessed. Patient is alert, oriented x 3, equal unlabored respirations, skin warm/dry/pink. Patient denies pain at this time. 17:00 Reassessment: Call received from [facility], call back [phone] ag7 option 1. report given, bed pending. 18:00 Reassessment: No changes from previously documented assessment. Patient and/or family ag7 updated on plan of care and expected duration. Pain level reassessed. Patient is alert, oriented x 3, equal unlabored respirations, skin warm/dry/pink. Patient denies pain at this time. 19:41 General: Appears in no apparent distress. Behavior is calm. Pain: Denies pain. Neuro: sf1 No deficits noted. Cardiovascular: No deficits noted. Respiratory: No deficits noted. 20:36 General: Patient states, "I am not suicidal. I did make that statement earlier, but did sf1 not mean it. I want to go home. I have an appointment on Thursday for my depression.." Made provider aware. . Psych: 13:05 [place] Suicide Severity Screening: In the past month, have you wished you were ag7 or wished you could go to sleep and not wake up? Patient responds "yes." Based off the client's responses additional C-SSRS screening is required. "In the past month, have you actually had any thoughts of killing yourself?" Patient responds "yes." "In your lifetime, have you ever done anything, started to do anything, or prepared to do anything to end your life?" Patient responds "no.". Subjective: Patient's mood is sad, hopeless, Delusions are denied, Hallucinations are denied Having thoughts of suicide. Denies suicidal plan. Objective: Patient is cooperative, Speech is slow, Affect is flat. Interventions: Removed personal items and placed in bag. Patient placed in hospital gown. Belonging list filled out. Safety Checks: Personal items have been removed. Door is open. Pt denies substance abuse. Consultation: Psych nibbler operator notified of patients arrival. Commitment: Patient will be a voluntary commitment. 14:00 Safety Checks: Personal items have been removed. Door is open. No visitors are present ag7 at this time. Patient continue with flat affect, continue to verbalize suicidal ideation, withdrawn, mumbling for speech. 15:00 Safety Checks: Personal items have been removed. Door is open. No visitors are present ag7 at this time. assessment unchanged from previous. 15:58 Interventions:. Safety Checks: Door is open. No visitors are present at this time. ag7 Patient voice no suicidal ideation at this time. Vital Signs: 11:44 BP 127 / 89; Pulse 61; Resp 18; Temp 97.7; Pulse Ox 100% on R/A; Weight 99.79 kg; ww Height 5 ft. 11 in. (180.34 cm); Pain 0/10; 20:26 BP 112 / 88; Pulse 62; Resp 16; Temp 98.1; Pulse Ox 100% ; ds4 11:44 Body Mass Index 30.68 (99.79 kg, 180.34 cm) ww ED Course: 11:42 Patient arrived in ED. ds1 11:47 Triage completed. ww 11:47 Arm band placed on right wrist. ww 11:48 Jonathan Oconnell MD is Attending Physician. [facility] 11:52 Soledad Ibarra RN is Primary Nurse. ag7 13:01 Accessed peripheral vein via ultrasound, utilizing dynamic ultrasound technique using jd3 20G Nexia IV catheter ,sterile technique, per hospital protocol. Clean \\T\\ dry. Dressing intact. left AC. Good blood return. Flushes easily. 13:02 Patient has correct armband on for positive identification. Placed in gown. Bed in low jd3 position. Side rails up X 1. Valuables inventory done. Locked in safe. See valuables checklist. Pulse ox on. NIBP on. 13:20 pt clinical's fax[facility] [place] 16:13 Social work Trauma Team faxed clinicals to [facility], sp [facility], [facility]. 19:40 No apparent distress. Appears to be sleeping. Safety Checks: Personal items have been sf1 removed. The door is open or patient has been placed in a hallway bed/chair. Sitter not present at this time due to or because was not provided a sitter. 21:22 Attending Physician role handed off by Jonathan Oconnell MD [facility] 21:22 Calin Weir MD is Attending Physician. [facility] 21:28 Balaji Rosenberg MD is Referral Physician. [facility] 21:33 No provider procedures requiring assistance completed. IV discontinued, intact, sf1 bleeding controlled, No redness/swelling at site. Pressure dressing applied. Administered Medications: 13:25 Drug: Tylenol 1000 mg Route: PO; jd3 14:20 Follow up: Response: No adverse reaction jd3 14:50 Drug: Potassium Effervescent Tablet 50 mEq Route: PO; ag7 15:30 Follow up: Response: No adverse reaction ag7 15:50 Follow up: Response: No adverse reaction ag7 15:51 Drug: Potassium Effervescent Tablet 50 mEq Route: PO; ag7 16:20 Follow up: Response: No adverse reaction ag7 Outcome: 12:18 ER care complete, transfer ordered by . [facility] 21:29 Discharge ordered by . [facility] 21:33 Discharged to home ambulatory, with friend. sf1 21:33 Condition: stable 21:33 Discharge instructions given to patient, Instructed on discharge instructions, follow up and referral plans. Demonstrated understanding of instructions, follow-up care, medications, Prescriptions given X 1. 21:34 Patient left the ED. sf1 Signatures: Jonathan Oconnell MD MD cha Pinkerton, Shawna sp Sanford, Demi ds1 Joce Tovar ds4 Jakob Turcios RN RN jd3 Lewis, Lynsay, RN RN 1 Calin Weir MD MD [facility] Dari Manning RN RN ww Fillers, Samantha, RN RN sf1 Soledad Ibarra, ISIDRO RN 7 Corrections: (The following items were deleted from the chart) 13:13 13:02 Reassessment: Patient and/or family updated on plan of care and expected ll1 duration. Pain level reassessed. Patient is alert, oriented x 3, equal unlabored respirations, skin warm/dry/pink. pt refusing COVID swab at this time. charge notified. jd3
[2021-07-07 12:57] LABS: Absolute Lymphocytes (CBC) 1.3 K/uL (0.7-4.9); Hematocrit 44.5 % (36.0-45.0); Lymphocytes % 20.3 % (15.3-44.8); MPV 9.6 fL (7.6-11.3); RBC Red Blood Cell Count 4.88 M/uL (3.86-4.86)
[2021-07-07 13:03] LABS: Protime INR 1.04
[2021-07-07] MEDS ORDERED: ACETAMINOPHEN 500 MG TAB ONE (13:23)
[2021-07-07 13:31] LABS: ALT/SGPT 28 U/L (12-78); AST/SGOT 17 U/L (15-37); Albumin 4.1 g/dL (3.4-5.0); Alkaline Phosphatase 112 U/L (45-117); BUN Blood Urea Nitrogen 6 mg/dL (7-18); Bicarbonate 31 mmol/L (21-32); Bilirubin Direct 0.2 mg/dL (0-0.2); Bilirubin Total 0.7 mg/dL (0.2-1.0); Glucose Level 92 mg/dL (74-106); Protein, Total 7.8 g/dL (6.4-8.2); Sodium Level 139 mmol/L (136-145)
[2021-07-07 13:32] LABS: Potassium 2.8 mmol/L (3.5-5.1)
[2021-07-07] MEDS ORDERED: POTASSIUM 25 MEQ EFFERV TAB ONE ×2 (14:47→15:47)
[2021-07-07 21:02] LABS: Urine Blood Trace-intact (Negative); Urine Glucose Negative (Negative); Urine Protein 1+ (Negative); Urine Specific Gravity 1.015 (1.005-1.030); Urine pH 8.5 (5.0-7.0)
[2021-07-07 21:52] VITALS: O2SAT 100
[2021-07-07 21:54] VITALS: BP 112/88; TEMP 98.1
[2021-07-07 21:56] LABS: Barbiturates NEGATIVE (NEGATIVE); Benzodiazepines POSITIVE (NEGATIVE); Cocaine POSITIVE (NEGATIVE); METHAMPHETAM POSITIVE (NEGATIVE); Methadone NEGATIVE (NEGATIVE); Opiates NEGATIVE (NEGATIVE); Phencyclidine NEGATIVE (NEGATIVE); THC Cannibis POSITIVE (NEGATIVE)
[2021-07-07 23:50] LABS: Urine Specific Gravity/Preg 1.015 (1.005-1.030)
== END 2021-07-07 21:34 | disposition home or self-care (01) ==
LOC: ER 11:39
DX: F32.9 Major depressive disorder, single episode, unspecified (principal); E87.6 Hypokalemia; N39.0 Urinary tract infection, site not specified; Z20.822 Contact with and (suspected) exposure to COVID-19
CPT/HCPCS: 93005; 85025; 80048; 36415; 80320; 80329 ×2; 81025; 85610; 80076; 85730; 81003; 80307; 99285; U0003

== ENCOUNTER 2021-09-27 20:24 | Emergency (ER) | payer OTHER ==
--- OUTSIDE RECORDS SUMMARY | 2021-09-27 20:33 | XMS REPORT | Continuity of Care Document ---
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 mg 2-30 tablet by ity of tablet 00:00: mouth [place] 00 every 6 Medical (six) Branch hours as needed (Pain). Take with food or milk. 2019-04 Yes [id number] 1{tbl} Take 1 [facility] vitamin 2-30 tablet by ity of w/FA tablet 00:00: mouth [place] 00 daily. Medical Branch docusate 2019-04 Yes [id number] 240mg Take 1 U nivers calcium 240 2-30 capsule by it y of mg capsule 00:00: mouth once [place] 00 daily as Medical needed for Branch Constipati on. ferrous 2019-04 Yes [id number] 325mg Take 1 Un inés sulfate 325 2-30 tablet by ity of mg (65 mg 00:00: mouth 2 [place] iron) 00 (two) Medical tablet times Branch daily. ibuprofen 2019-04 Yes [id number] 600mg Take 1 [facility] 600 mg 2-30 tablet by ity of tablet 00:00: mouth [place] 00 every 6 Medical (six) Branch hours as needed (Pain). Take with food or milk. 2019-04- No [id number] 1{tbl} Take 1 [facility] vitamin 2-30 03-25 tablet by ity of w/FA tablet 00:00: 00:[place] :00 daily. [facility] docusate 2019-04- No [id number] 240mg Take 1 [facility] calcium 240 2-30 03-25 capsule by i ty of mg capsule 00:00: 00:00 mouth once [place] 00 :00 daily as Medical needed for Branch Constipati on. ferrous 2019-04- No [id number] 325mg Take 1 U nivers sulfate 325 2-30 03-25 tablet by it y of mg (65 mg 00:00: 00:00 mouth [place] iron[place] 00 :00 (two) Medical tablet times Branch daily. ibuprofen 2019-04- No [id number] 600mg Take 1 [facility] 600 mg 2-30 - tablet by ity of tablet 00:00: 00:00 mouth [place] 00 :00 every 6 Medical (six) Branch hours as needed (Pain). Take with food or milk. HYDROcodone 2019-04- No [id number] 1{tbl} Take 1 U nivers -acetaminop 2-30 05-03 tablet by it y of hen 5-325 00:00: 05:59 mouth [place] mg tablet 00 :00 every 6 Medical (six) Branch hours as needed (Pain scale above 4) for up to 7 days. Do not exceed 3 grams of acetaminop hen in 24 hours. Indication s: acute pain 2019-04 Yes Take by Unive rs 25/iron 1-25 mouth. ity of fum/folic/d 21:30: [place] [address] Medical (-1 Branch ORAL) 2019-04 Yes Take by Unive rs 25/iron 1-25 mouth. ity of fum/folic/d 21:30: [place] [address] Medical (-1 Branch ORAL) 2020 Yes Take by Unive rs 25/iron 1-25 mouth. ity of fum/folic/d 21:30: [place] [address] Medical (-1 Branch ORAL) 2020 Yes Take by Unive rs 25/iron 1-25 mouth. ity of fum/folic/d 21:30: [place] [address] Medical (-1 Branch ORAL) 2020 Yes Take by Unive rs 25/iron 1-25 mouth. ity of fum/folic/d 21:30: [place] [address] Medical (-1 Branch ORAL) 2020- Yes Take by Unive rs 25/iron 1-25 mouth. ity of fum/folic/d 21:30: [place] [address] Medical (-1 Branch ORAL) 2020- Yes Take by Unive rs 25/iron 1-25 mouth. ity of fum/folic/d 21:30: [place] [address] Medical (-1 Branch ORAL) 2020 Yes Take by Unive rs 25/iron 1-25 mouth. ity of fum/folic/d 21:30: [place] [address] Medical (-1 Branch ORAL) 2019-04 Yes Take by Unive rs 25/iron 1-25 mouth. ity of fum/folic/d 21:30: [place] [address] Medical (-1 Branch ORAL) 2019-04 Yes Take by Unive rs 25/iron 1-25 mouth. ity of fum/folic/d 21:30: [place] [address] Medical (-1 Branch ORAL) 2019-04 Yes Take by Unive rs 25/iron 1-25 mouth. ity of fum/folic/d 21:30: [place] [address] Medical (-1 Branch ORAL) PNV 2019-04 Yes [id number] Take 1 Univers 102-iron-fo 0-20 TAB-CAP/M2 it y of late-dha 00:00: by mouth [place] (VITAFOL FE 00 daily. Medica l PLUS) 90 mg Branch iron- 1 mg-200 mg Cap PNV 2019-04 Yes [id number] Take 1 [facility] 102-iron-fo 0-20 TAB-CAP/M2 it y of late-dha 00:00: by mouth [place] (VITAFOL FE 00 daily. Medica l PLUS) 90 mg Branch iron- 1 mg-200 mg Cap PNV 2019-04 Yes [id number] Take 1 [facility] 102-iron-fo 0-20 TAB-CAP/M2 it y of late-dha 00:00: by mouth [place] (VITAFOL FE 00 daily. Medica l PLUS) 90 mg Branch iron- 1 mg-200 mg Cap PNV 2020 Yes [id number] Take 1 [facility] 102-iron-fo 0-20 TAB-CAP/M2 it y of late-dha 00:00: by mouth [place] (VITAFOL FE 00 daily. Medica l PLUS) 90 mg Branch iron- 1 mg-200 mg Cap PNV 2020 Yes [id number] Take 1 [facility] 102-iron-fo 0-20 TAB-CAP/M2 it y of late-dha 00:00: by mouth [place] (VITAFOL FE 00 daily. Medica l PLUS) 90 mg Branch iron- 1 mg-200 mg Cap PNV 2020 Yes [id number] Take 1 [facility] 102-iron-fo 0-20 TAB-CAP/M2 it y of late-dha 00:00: by mouth [place] (VITAFOL FE 00 daily. Medica l PLUS) 90 mg Branch iron- 1 mg-200 mg Cap PNV 2019-04 Yes [id number] Take 1 [facility] 102-iron-fo 0-20 TAB-CAP/M2 it y of late-dha 00:00: by mouth [place] (VITAFOL FE 00 daily. Medica l PLUS) 90 mg Branch iron- 1 mg-200 mg Cap PNV 2019-04 2020- No [id number] Take 1 Univer s 102-iron-fo 0-20 11-25 TAB-CAP/M2 i ty of late-dha 00:00: 00:00 [place] (VITAFOL FE 00 :00 daily. Medica l PLUS) 90 mg Branch iron- 1 mg-200 mg Cap PNV 2019-04 2020- No [id number] Take 1 Univer s 102-iron-fo 0-20 11-25 TAB-CAP/M2 i ty of late-dha 00:00: 00:00 by mouth [place] (VITAFOL FE 00 :00 daily. Medica l PLUS) 90 mg Branch iron- 1 mg-200 mg Cap PNV 2019-04 2020- No [id number] Take 1 Univer s 102-iron-fo 0-20 11-25 TAB-CAP/M2 i ty of late-dha 00:00: 00:00 [place] (VITAFOL FE 00 :00 daily. Medica l PLUS) 90 mg Branch iron- 1 mg-200 mg Cap metoclopram 2020-0 Yes [id number] 10mg Take 1 [facility] levi HCl 10 8-11 tablet by ity of mg tablet 00:00: mouth [place] 00 every 6 Medical (six) Branch hours as needed for Nausea and Vomiting (N/V). metoclopram 2020-0 Yes [id number] 10mg Take 1 [facility] levi HCl 10 8-11 tablet by ity of mg tablet 00:00: mouth [place] 00 every 6 Medical (six) Branch hours as needed for Nausea and Vomiting (N/V). metoclopram 2020-0 Yes [id number] 10mg Take 1 [facility] levi HCl 10 8-11 tablet by ity of mg tablet 00:00: mouth [place] 00 every 6 Medical (six) Branch hours as needed for Nausea and Vomiting (N/V). metoclopram 2020-0 Yes [id number] 10mg Take 1 [facility] levi HCl 10 8-11 tablet by ity of mg tablet 00:00: mouth [place] 00 every 6 Medical (six) Branch hours as needed for Nausea and Vomiting (N/V). metoclopram 2020-0 Yes [id number] 10mg Take 1 [facility] levi HCl 10 8-11 tablet by ity of mg tablet 00:00: mouth [place] 00 every 6 Medical (six) Branch hours as needed for Nausea and Vomiting (N/V). metoclopram 2020-0 Yes [id number] 10mg Take 1 [facility] levi HCl 10 8-11 tablet by ity of mg tablet 00:00: mouth [place] 00 every 6 Medical (six) Branch hours as needed for Nausea and Vomiting (N/V). metoclopram 2020-0 2020- No [id number] 10mg Take 1 [facility] levi HCl 10 8-11 10-20 tablet by ity of mg tablet 00:00: 00:00 mouth [place] 00 :00 every 6 Medical (six) Branch hours as needed for Nausea and Vomiting (N/V). metoclopram 2019-0 2019- No 10mg 10 mg, Uni vers levi HCl 11-27-03 Slow IV ity of (REGLAN) 23:00: 21:59 Push, [place] injection 00 :00 ONCE, 1 Medical 10 mg dose, Mon Branch 11/28/19 at 1800, TUSHAR NaCl 0.9% 2019- No 1000mL at 999 Uni vers (NS) bolus 11-27 08-04 mL/hr, ity of infusion 21:15: 00:22 1,000 mL, [place] 1,000 mL 00 :00 IV Medical Infusion, Branch ONCE, 1 dose, [facility] 11/28/19 at 1615, TUSHAR doxylamine- 2020-0 Yes [id number] Take 2 Univers pyridoxine, 8-03 tabs by ity o f vit B6, 00:00: mouth [place]. [place] (DICLEGIS) 00 If nausea Medi dee 10-10 mg not Branch per tablet controlled may increase to max of 4 tabs daily-1 tab in am, 1 tab mid afternoon and 2 tabs qhs doxylamine- 2020-0 Yes [id number] Take 2 [facility] pyridoxine, 8-03 tabs by ity o f vit B6, 00:00: mouth [place]. [place] (DICLEGIS) 00 If nausea Medi dee 10-10 mg not Branch per tablet controlled may increase to max of 4 tabs daily-1 tab in am, 1 tab mid afternoon and 2 tabs qhs doxylamine- 2020-0 Yes [id number] Take 2 [facility] pyridoxine, 8-03 tabs by ity o f vit B6, 00:00: mouth [place]. [place] (DICLEGIS) 00 If nausea Medi dee 10-10 mg not Branch per tablet controlled may increase to max of 4 tabs daily-1 tab in am, 1 tab mid afternoon and 2 tabs qhs doxylamine- 2020-0 Yes [id number] Take 2 Univers pyridoxine, 8-03 tabs by ity o f vit B6, 00:00: mouth [place]. [place] (DICLEGIS[place] 00 If nausea Medi dee 10-10 mg not Branch per tablet controlled may increase to max of 4 tabs daily-1 tab in am, 1 tab mid afternoon and 2 tabs qhs doxylamine- 2020-0 Yes [id number] Take 2 [facility] pyridoxine, 8-03 tabs by ity o f vit B6, 00:00: mouth [place]. [place] (DICLEGIS) 00 If nausea Medi dee 10-10 mg not Branch per tablet controlled may increase to max of 4 tabs daily-1 tab in am, 1 tab mid afternoon and 2 tabs qhs doxylamine- 2020-0 Yes [id number] Take 2 [facility] pyridoxine, 8-03 tabs by ity o f vit B6, 00:00: mouth [place]. [place] (DICLEGIS[place] 00 If nausea Medi dee 10-10 mg not Branch per tablet controlled may increase to max of 4 tabs daily-1 tab in am, 1 tab mid afternoon and 2 tabs qhs doxylamine- 2020-0 Yes [id number] Take 2 [facility] pyridoxine, 8-03 tabs by ity o f vit B6, 00:00: mouth [place]. [place] (DICLEGIS[place] 00 If nausea Medi dee 10-10 mg not Branch per tablet controlled may increase to max of 4 tabs daily-1 tab in am, 1 tab mid afternoon and 2 tabs qhs doxylamine- 2020-0 Yes [id number] Take 2 [facility] pyridoxine, 8-03 tabs by ity o f vit B6, 00:00: mouth [place]. [place] (DICLEGIS[place] 00 If nausea Medi dee 10-10 mg not Branch per tablet controlled may increase to max of 4 tabs daily-1 tab in am, 1 tab mid afternoon and 2 tabs qhs doxylamine- 2019-0 2020- No [id number] Take 2 [facility] pyridoxine, 8-03 10-20 tabs by ity of vit B6, 00:00: 00:00 mouth qhs. [place] (DICLEGIS) 00 :00 If nausea Medi ede 10-10 mg not Branch per tablet controlled may increase to max of 4 tabs daily-1 tab in am, 1 tab mid afternoon and 2 tabs qhs ampicillin 2019-0 2020- No [id number] 500mg Take 1 Univers 500 mg 7-13 07-24 capsule by ity of capsule 00:00: 04:59 mouth 4 [place] 00 :00 (four) Medical times Branch daily for 10 days. ampicillin 2019-0 2020- No [id number] 500mg Take 1 [facility] 500 mg 7-13 07-24 capsule by ity of capsule 00:00: 04:59 mouth 4 [place] 00 :00 (four) Medical times Branch daily for 10 days. proMETHazin 2020-0 Yes [id number] 25mg Take 1 Univers e 25 mg 7-09 tablet by ity of tablet 00:00: mouth [place] 00 every 6 Medical (six) Branch hours as needed for Nausea and Vomiting (N/V). proMETHazin 2020-0 Yes [id number] 25mg Take 1 Univers e 25 mg 7-09 tablet by ity of tablet 00:00: mouth [place] 00 every 6 Medical (six) Branch hours as needed for Nausea and Vomiting (N/V). proMETHazin 2020-0 Yes [id number] 25mg Take 1 Univers e 25 mg 7-09 tablet by ity of tablet 00:00: mouth [place] 00 every 6 Medical (six) Branch hours as needed for Nausea and Vomiting (N/V). proMETHazin 2020-0 Yes [id number] 25mg Take 1 Univers e 25 mg 7-09 tablet by ity of tablet 00:00: mouth [place] 00 every 6 Medical (six) Branch hours as needed for Nausea and Vomiting (N/V). proMETHazin 2020-0 Yes [id number] 25mg Take 1 Univers e 25 mg 7-09 tablet by ity of tablet 00:00: mouth [place] 00 every 6 Medical (six) Branch hours as needed for Nausea and Vomiting (N/V). proMETHazin 2020-0 Yes [id number] 25mg Take 1 Univers e 25 mg 7-09 tablet by ity of tablet 00:00: mouth [place] 00 every 6 Medical (six) Branch hours as needed for Nausea and Vomiting (N/V). proMETHazin 2020-0 Yes [id number] 25mg Take 1 Univers e 25 mg 7-09 tablet by ity of tablet 00:00: mouth [place] 00 every 6 Medical (six) Branch hours as needed for Nausea and Vomiting (N/V). proMETHazin 2020-0 Yes [id number] 25mg Take 1 Univers e 25 mg 7-09 tablet by ity of tablet 00:00: mouth [place] 00 every 6 Medical (six) Branch hours as needed for Nausea and Vomiting (N/V). proMETHazin 2020-0 Yes [id number] 25mg Take 1 Univers e 25 mg 7-09 tablet by ity of tablet 00:00: mouth [place] 00 every 6 Medical (six) Branch hours as needed for Nausea and Vomiting (N/V). proMETHazin 2020-0 Yes [id number] 25mg Take 1 Univers e 25 mg 7-09 tablet by ity of tablet 00:00: mouth [place] 00 every 6 Medical (six) Branch hours as needed for Nausea and Vomiting (N/V). proMETHazin 2020-0 Yes [id number] 25mg Take 1 Univers e 25 mg 7-09 tablet by ity of tablet 00:00: mouth [place] 00 every 6 Medical (six) Branch hours as needed for Nausea and Vomiting (N/V). proMETHazin 2020-0 Yes [id number] 25mg Take 1 Univers e 25 mg 7-09 tablet by ity of tablet 00:00: mouth [place] 00 every 6 Medical (six) Branch hours as needed for Nausea and Vomiting (N/V). proMETHazin 2020-0 Yes [id number] 25mg Take 1 Univers e 25 mg 7-09 tablet by ity of tablet 00:00: mouth [place] 00 every 6 Medical (six) Branch hours as needed for Nausea and Vomiting (N/V). proMETHazin 2020-0 Yes [id number] 25mg Take 1 Univers e 25 mg 7-09 tablet by ity of tablet 00:00: mouth [place] 00 every 6 Medical (six) Branch hours as needed for Nausea and Vomiting (N/V). proMETHazin 2020-0 Yes [id number] 25mg Take 1 Univers e 25 mg 7-09 tablet by ity of tablet 00:00: mouth [place] 00 every 6 Medical (six) Branch hours as needed for Nausea and Vomiting (N/V). proMETHazin 2020-0 Yes [id number] 25mg Take 1 Univers e 25 mg 7-09 tablet by ity of tablet 00:00: mouth [place] 00 every 6 Medical (six) Branch hours as needed for Nausea and Vomiting (N/V). proMETHazin 2020-0 Yes [id number] 25mg Take 1 Univers e 25 mg 7-09 tablet by ity of tablet 00:00: mouth [place] 00 every 6 Medical (six) Branch hours as needed for Nausea and Vomiting (N/V). proMETHazin 2020-0 2020- No [id number] 25mg Take 1 Univers e 25 mg 7-09 10-20 tablet by ity of tablet 00:00: 00:00 mouth [place] 00 :00 every 6 Medical (six) Branch hours as needed for Nausea and Vomiting (N/V). Acyclovir Acyclovir Yes Hossein 1 tablet Common 7-25 [facility] 00:00: - [facility] 00 [facility] butalbital- Yes 1{tbl} Take 1 Un inés [...] for Pain (scale 7-10) (Headache) . butalbital 2020- No 1{tbl} Take 1 U nivers [...] by ity of tablet 00:00: mouth 2 [place] 00 (two) Medical times Branch daily with [...] mg/mL (three) Branch syringe months. medroxyPROG 2016-0 2020- No 150mg 1 mL by U felicia ESTERone 11-12 10-20 Intramuscu ity of (DEPO-PROVE 00:00: 00:00 [...] No known No Univers medications ity of [facility] Immunizations Ordered Filled Immunization Date Status Comments [facility] e Immunization Name Name TDAP 2020-02-14 Completed University of 00:00:00 [facility] [place] [facility] Branch Influenza Virus 2020-02-14 Completed Universit y of Vaccine Quad .5 mL 00:00:00 [place] [facility] IM 6+ MO Branch TDAP 2020-02-14 Completed University of 00:00:00 [facility] [place] [facility] Branch Influenza Virus 2020-02-14 Completed Universit y of Vaccine Quad .5 mL 00:00:00 [place] Medical IM 6+ MO Branch TDAP 2020-02-14 Completed University of 00:00:00 [facility] Influenza Virus 2020-02-14 Completed Universit y of Vaccine Quad .5 mL 00:00:00 [place] [facility] 6+ MO Branch TDAP 2020-02-14 Completed University of 00:00:00 [facility] Influenza Virus 2020-02-14 Completed Universit y of Vaccine Quad .5 mL 00:00:00 [place] Medical IM 6+ MO Branch TDAP 2020-02-14 Completed University of 00:00:00 [facility] [place] [facility] Branch Influenza Virus 2020-02-14 Completed Universit y of Vaccine Quad .5 mL 00:00:00 [place] [facility] IM 6+ MO Branch TDAP 2020-02-14 Completed University of 00:00:00 [facility] [place] [facility] Branch Influenza Virus 2020-02-14 Completed Universit y of Vaccine Quad .5 mL 00:00:00 [place] [facility] IM 6+ MO Branch TDAP 2020-02-14 Completed University of 00:00:00 [place] [facility] Branch Influenza Virus 2020-02-14 Completed Universit y of Vaccine Quad .5 mL 00:00:00 [place] [facility] IM 6+ MO Branch TDAP 2020-02-14 Completed University of 00:00:00 [facility] [place] [facility] Branch Influenza Virus 2020-02-14 Completed Universit y of Vaccine Quad .5 mL 00:00:00 [place] [facility] IM 6+ MO Branch TDAP 2020-02-14 Completed University of 00:00:00 [facility] [place] [facility] Branch Influenza Virus 2020-02-14 Completed Universit y of Vaccine Quad .5 mL 00:00:00 [place] [facility] IM 6+ MO Branch TDAP 2020-02-14 Completed University of 00:00:00 [facility] Influenza Virus 2020-02-14 Completed Universit y of Vaccine Quad .5 mL 00:00:00 [place] [facility] 6+ MO Branch TDAP 2020-02-14 Completed University of 00:00:00 [place] [facility] [place] Influenza Virus 2020-02-14 Completed Universit y of Vaccine Quad .5 mL 00:00:00 [place] [facility] 6+ MO Branch TDAP 2020-02-14 Completed University of 00:00:00 [facility] Influenza Virus 2020-02-14 Completed Universit y of Vaccine Quad .5 mL 00:00:00 [place] [facility] 6+ MO Branch TDAP 2020-02-14 Completed University of 00:00:00 [facility] Influenza Virus 2020-02-14 Completed Universit y of Vaccine Quad .5 mL 00:00:00 [place] [facility] 6+ MO Branch TDAP 2020-02-14 Completed University of 00:00:00 [facility] Influenza Virus 2020-02-14 Completed Universit y of Vaccine Quad .5 mL 00:00:00 [place] [facility] 6+ MO Branch TDAP 2020-02-14 Completed University of 00:00:00 [facility] Influenza Virus 2020-02-14 Completed Universit y of Vaccine Quad .5 mL 00:00:00 [place] [facility] 6+ MO Branch TDAP 2020-02-14 Completed University of 00:00:00 [facility] Influenza Virus 2020-02-14 Completed Universit y of Vaccine Quad .5 mL 00:00:00 [place] [facility] 6+ MO Branch TDAP 2020-02-14 Completed University of 00:00:00 [facility] Influenza Virus 2020-02-14 Completed Universit y of Vaccine Quad .5 mL 00:00:00 [place] [facility] 6+ MO Branch TDAP 2020-02-14 Completed University of 00:00:00 [facility] Influenza Virus 2020-02-14 Completed Universit y of Vaccine Quad .5 mL 00:00:00 [place] [facility] 6+ MO Branch TDAP 2020-02-14 Completed University of 00:00:00 [facility] Influenza Virus 2020-02-14 Completed Universit y of Vaccine Quad .5 mL 00:00:00 [place] [facility] 6+ MO Branch TDAP 2020-02-14 Completed University of 00:00:00 [facility] Influenza Virus 2020-02-14 Completed Universit y of Vaccine Quad .5 mL 00:00:00 [place] [facility] 6+ MO Branch TDAP 2020-02-14 Completed University of 00:00:00 [place] [facility] [place] Influenza Virus 2020-02-14 Completed Universit y of Vaccine Quad .5 mL 00:00:00 [place] [facility] 6+ MO Branch TDAP 2020-02-14 Completed University of 00:00:00 [place] [facility] [place] Influenza Virus 2020-02-14 Completed Universit y of Vaccine Quad .5 mL 00:00:00 [place] [facility] 6+ MO Branch TDAP 2020-02-14 Completed University of 00:00:00 [place] [facility] [place] Influenza Virus 2020-02-14 Completed Universit y of Vaccine Quad .5 mL 00:00:00 [place] [facility] 6+ MO Branch TDAP 2020-02-14 Completed University of 00:00:00 [facility] Influenza Virus 2020-02-14 Completed Universit y of Vaccine Quad .5 mL 00:00:00 [place] [facility] 6+ MO Branch TDAP 2020-02-14 Completed University of 00:00:00 [facility] Influenza Virus 2020-02-14 Completed Universit y of Vaccine Quad .5 mL 00:00:00 [place] [facility] 6+ MO Branch TDAP 2020-02-14 Completed University of 00:00:00 [facility] Influenza Virus 2020-02-14 Completed Universit y of Vaccine Quad .5 mL 00:00:00 [place] [facility] 6+ MO Branch TDAP 2020-02-14 Completed University of 00:00:00 [facility] Influenza Virus 2020-02-14 Completed Universit y of Vaccine Quad .5 mL 00:00:00 [place] [facility] 6+ MO Branch TDAP 2020-02-14 Completed University of 00:00:00 [facility] Influenza Virus 2020-02-14 Completed Universit y of Vaccine Quad .5 mL 00:00:00 [place] [facility] 6+ MO Branch TDAP 2020-02-14 Completed University of 00:00:00 [place] [facility] [place] Influenza Virus 2020-02-14 Completed Universit y of Vaccine Quad .5 mL 00:00:00 [place] [facility] 6+ MO Branch TDAP 2020-02-14 Completed University of 00:00:00 [facility] Influenza Virus 2020-02-14 Completed Universit y of Vaccine Quad .5 mL 00:00:00 [place] [facility] 6+ MO Branch TDAP 2020-02-14 Completed University of 00:00:00 [facility] Influenza Virus 2020-02-14 Completed Universit y of Vaccine Quad .5 mL 00:00:00 [place] [facility] IM 6+ MO Branch TDAP 2020-02-14 Completed University of 00:00:00 [place] [facility] [place] Influenza Virus 2020-02-14 Completed Universit y of Vaccine Quad .5 mL 00:00:00 [place] [facility] IM 6+ MO Branch TDAP 2020-02-14 Completed University of 00:00:00 [facility] Influenza Virus 2020-02-14 Completed Universit y of Vaccine Quad .5 mL 00:00:00 [place] [facility] IM 6+ MO Branch TDAP 2020-02-14 Completed University of 00:00:00 [facility] Influenza Virus 2020-02-14 Completed Universit y of Vaccine Quad .5 mL 00:00:00 [place] [facility] IM 6+ MO Branch TDAP 2020-02-14 Completed University of 00:00:00 [facility] Influenza Virus 2020-02-14 Completed Universit y of Vaccine Quad .5 mL 00:00:00 [place] [facility] IM 6+ MO Branch TDAP 2020-02-14 Completed University of 00:00:00 [facility] Influenza Virus 2020-02-14 Completed Universit y of Vaccine Quad .5 mL 00:00:00 [place] [facility] IM 6+ MO Branch TDAP 2020-02-14 Completed University of 00:00:00 [facility] Influenza Virus 2020-02-14 Completed Universit y of Vaccine Quad .5 mL 00:00:00 [place] [facility] 6+ MO Branch Influenza Virus 2015-02-01 Completed Universit y of Vaccine Quad IM 3+ 00:00:00 [facility] Influenza Virus 2015-02-01 Completed Universit y of Vaccine Quad IM 3+ 00:00:00 [facility] Influenza Virus 2015-02-01 Completed Universit y of Vaccine Quad IM 3+ 00:00:00 [facility] Influenza Virus 2015-02-01 Completed Universit y of Vaccine Quad IM 3+ 00:00:00 [facility] Influenza Virus 2015-02-01 Completed Universit y of Vaccine Quad IM 3+ 00:00:00 [facility] Influenza Virus 2015-02-01 Completed Universit y of Vaccine Quad IM 3+ 00:00:00 [facility] Influenza Virus 2015-02-01 Completed Universit y of Vaccine Quad IM 3+ 00:00:00 [facility] Influenza Virus 2015-02-01 Completed Universit y of Vaccine Quad IM 3+ 00:00:00 [facility] Influenza Virus 2015-02-01 Completed Universit y of Vaccine Quad IM 3+ 00:00:00 [facility] Influenza Virus 2015-02-01 Completed Universit y of Vaccine Quad IM 3+ 00:00:00 [facility] Branch Influenza Virus 2015-02-01 Completed Universit y of Vaccine Quad IM 3+ 00:00:00 [facility] Influenza Virus 2015-02-01 Completed Universit y of Vaccine Quad IM 3+ 00:00:00 [facility] Influenza Virus 2015-02-01 Completed Universit y of Vaccine Quad IM 3+ 00:00:00 [facility] Influenza Virus 2015-02-01 Completed Universit y of Vaccine Quad IM 3+ 00:00:00 [facility] Influenza Virus 2015-02-01 Completed Universit y of Vaccine Quad IM 3+ 00:00:00 [facility] Influenza Virus 2015-02-01 Completed Universit y of Vaccine Quad IM 3+ 00:00:00 [facility] Influenza Virus 2015-02-01 Completed Universit y of Vaccine Quad IM 3+ 00:00:00 [facility] Influenza Virus 2015-02-01 Completed Universit y of Vaccine Quad IM 3+ 00:00:00 [facility] Influenza Virus 2015-02-01 Completed Universit y of Vaccine Quad IM 3+ 00:00:00 [facility] Influenza Virus 2015-02-01 Completed Universit y of Vaccine Quad IM 3+ 00:00:00 [facility] Influenza Virus 2015-02-01 Completed Universit y of Vaccine Quad IM 3+ 00:[facility]:00 [facility] [facility] Influenza Virus 2015-02-01 Completed Universit y [facility] IM 3+ 00:00:00 [facility] Influenza Virus 2015-02-01 Completed [facility]it y [facility] IM 3+ 00:00:00 [facility] Influenza Virus 2015-02-01 Completed [facility]it y of [facility] IM 3+ 00:00:00 [facility] Influenza Virus 2015-02-01 Completed [facility]it y of [facility] IM 3+ 00:00:00 [facility] Influenza Virus 2015-02-01 Completed [facility]it y of [facility] IM 3+ 00:00:00 [facility] Influenza Virus 2015-02-01 Completed [facility]it y of [facility] IM 3+ 00:00:00 [facility] Influenza Virus 2015-02-01 Completed [facility]it y of [facility] IM 3+ 00:00:00 [facility] Influenza Virus 2015-02-01 Completed [facility]it y of [facility] IM 3+ 00:00:00 [facility] Influenza Virus 2015-02-01 Completed [facility]it y of [facility] IM 3+ 00:00:00 [facility] Influenza Virus 2015-02-01 Completed [facility]it y of [facility] IM 3+ 00:00:00 [facility] Influenza Virus 2015-02-01 Completed [facility]it y of [facility] IM 3+ 00:00:00 [facility] Influenza Virus 2015-02-01 Completed [facility]it y of [facility] IM 3+ 00:00:00 [facility] Influenza Virus 2015-02-01 Completed [facility]it y of [facility] IM 3+ 00:00:00 [facility] Influenza Virus 2015-02-01 Completed [facility]it y of [facility] IM 3+ 00:00:00 [facility] Influenza Virus 2015-02-01 Completed Universit y of [facility] IM 3+ 00:00:00 [facility] Influenza Virus 2015-02-01 Completed [facility]it y of [facility] IM 3+ 00:00:00 [facility] Influenza Virus 2015-02-01 Completed [facility]it y of [facility] IM 3+ 00:00:00 [facility] Influenza Virus 2015-02-01 Completed [facility]it y of [facility] IM 3+ 00:00:00 [facility] Influenza Virus 2015-02-01 Completed [facility]it y of [facility] IM 3+ 00:00:00 [facility] Influenza Virus 2015-02-01 Completed [facility]it y of [facility] IM 3+ 00:00:00 [facility] Influenza Virus 2015-02-01 Completed [facility]it y of [facility] IM 3+ 00:00:00 [facility] Influenza Virus 2015-02-01 Completed [facility]it y of [facility] IM 3+ 00:00:00 [facility] Influenza Virus 2015-02-01 Completed [facility]it y of [facility] IM 3+ 00:00:00 [facility] Influenza Virus 2015-02-01 Completed [facility]it y of [facility] IM 3+ 00:00:00 [facility] Influenza Virus 2015-02-01 Completed [facility]it y of [facility] IM 3+ 00:00:00 [facility] Influenza Virus 2015-02-01 Completed [facility]it y of [facility] IM 3+ 00:00:00 [facility] Influenza Virus 2015-02-01 Completed Universit y of Vaccine [facility] IM 3+ 00:00:00 [facility] Influenza Virus 2015-02-01 Completed Universit y of Vaccine [facility] IM 3+ 00:00:00 [facility] Influenza Virus 2015-02-01 Completed Universit y of [facility] IM 3+ 00:00:00 [facility] Influenza Virus 2015-02-01 Completed Universit y of [facility] IM 3+ 00:00:00 [facility] Influenza Virus 2015-02-01 Completed Universit y of [facility] IM 3+ 00:00:00 [facility] Influenza Virus 2015-02-01 Completed [facility]it y of [facility]ine [facility] IM 3+ 00:00:00 [facility] Influenza Virus 2015-02-01 Completed Universit y of [facility]ine [facility] IM 3+ 00:00:00 [facility] Vital Signs Vital Name Observation Time Observation Value Comments Source Systolic blood 2020-08-13 13:47:00 121 mm[Hg] Univer sity of pressure [facility] Diastolic blood 2020-08-13 13:47:00 70 mm[Hg] Unive rsity of pressure [facility] Heart rate 2020-08-13 13:47:00 71 /min [facility] Body temperature 2020-08-13 13:47:00 36.67 Jasmin [facility] Respiratory rate 2020-08-13 13:47:00 18 /min [facility] Body height 2020-08-13 13:47:00 180.3 cm Universi ty [facility] Body weight 2020-08-13 13:47:00 124.286 kg Universi [facility] BMI 2020-08-13 13:47:00 38.22 kg/m2 Universi ty [facility] Systolic blood 2020-08-13 13:47:00 121 mm[Hg] Univer sity of pressure [facility] Diastolic blood 2020-08-13 13:47:00 70 mm[Hg] Unive rsity of pressure [facility] Heart rate 2020-08-13 13:47:00 71 /min Universi ty [facility] Body temperature 2020-08-13 13:47:00 36.67 Jasmin Univ ersity [facility] Respiratory rate 2020-08-13 13:47:00 18 /min Univ ersity of [facility] Body height 2020-08-13 13:47:00 180.3 cm Universi [facility] Body weight 2020-08-13 13:47:00 124.286 kg [facility]i [facility] BMI 2020-08-13 13:47:00 38.22 kg/m2 [facility] Systolic blood 2020-07-19 15:56:00 116 mm[Hg] Univer sity of pressure [facility] Diastolic blood 2020-07-19 15:56:00 69 mm[Hg] Unive rsity of pressure [facility] Heart rate 2020-07-19 15:56:00 73 /min Universi ty [facility] Body temperature 2020-07-19 15:56:00 36.44 Jasmin [facility] ers[facility] Respiratory rate 2020-07-19 15:56:00 16 /min Univ ersity of [facility] Oxygen saturation in 2020-07-19 15:56:00 99 /min University of Arterial blood by [facility] Body weight 2020-07-19 08:45:00 126.554 kg Universi ty [facility] BMI 2020-07-19 08:45:00 38.93 kg/m2 [facility] Body height 2020-07-18 16:47:00 180.3 cm [facility]i [facility] Systolic blood 2020-07-10 08:00:00 120 mm[Hg] Univer sity of pressure [facility] Diastolic blood 2020-07-10 08:00:00 78 mm[Hg] Unive rsity of pressure [facility] Heart rate 2020-07-10 08:00:00 66 /min Universi ty [facility] Respiratory rate 2020-07-10 08:00:00 18 /min Univ ersity of [facility] Oxygen saturation in 2020-07-10 08:00:00 96 /min University of Arterial blood by iPierian dee [facility] Body temperature 2020-07-10 05:53:00 36.56 Jasmin [facility] ers[facility] Body weight 2020-07-10 05:53:00 122.925 kg Universi ty [facility] BMI 2020-07-10 05:53:00 37.80 kg/m2 [facility] Heart rate 2020-06-08 04:18:00 59 /min [facility]i [facility] Oxygen saturation in 2020-06-08 04:18:00 98 /min University Arterial blood by [facility] Systolic blood 2020-06-08 04:00:00 140 mm[Hg] Univer sity of pressure [facility] Diastolic blood 2020-06-08 04:00:00 93 mm[Hg] Unive rsity of pressure [facility] Respiratory rate 2020-06-08 04:00:00 19 /min Univ ersity of [facility] Body temperature 2020-06-08 03:42:00 36.72 Jasmin [facility] [place] [facility] [place] Body weight 2020-06-08 03:42:00 122.925 kg [facility]i ty [facility] [place] [facility] [place] BMI 2020-06-08 03:42:00 37.80 kg/m2 [facility] Systolic blood 2020-05-24 22:55:00 122 mm[Hg] Univer sity of pressure [facility] Diastolic blood 2020-05-24 22:55:00 81 mm[Hg] Unive rsity of pressure [facility] Heart rate 2020-05-24 22:55:00 64 /min [facility] [place] [facility] [place] Body temperature 2020-05-24 22:55:00 36.61 Jasmin Univ ersity of [facility] Body height 2020-05-24 22:55:00 180.3 cm [facility] [place] [facility] Body weight 2020-05-24 22:55:00 124.286 kg [facility]i [facility] BMI 2020-05-24 22:55:00 38.22 kg/m2 [facility] Systolic blood 2020-05-18 10:00:00 122 mm[Hg] Univer sity of pressure [facility] Diastolic blood 2020-05-18 10:00:00 75 mm[Hg] Unive rsity of pressure [facility] Heart rate 2020-05-18 10:00:00 66 /min [facility]i ty [facility] Respiratory rate 2020-05-18 10:00:00 14 /min Univ ersity of [facility] Oxygen saturation in 2020-05-18 10:00:00 99 /min University Arterial blood by [facility] Body temperature 2020-05-18 07:07:00 36.22 Jasmin Univ ersity of [facility] Body weight 2020-05-18 07:07:00 122.471 kg Universi ty of [facility] BMI 2020-05-18 07:07:00 37.66 kg/m2 Universi ty of [facility] Systolic blood 2020-05-02 20:24:00 125 mm[Hg] Univer sity of pressure [facility] Diastolic blood 2020-05-02 20:24:00 89 mm[Hg] Unive rsity of pressure [facility] Heart rate 2020-05-02 20:24:00 61 /min Universi ty of [facility] Body temperature 2020-05-02 20:24:00 37 Jasmin Univ ersity of [facility] Respiratory rate 2020-05-02 20:24:00 18 /min Univ ersity of [facility] Body weight 2020-05-02 20:24:00 125.646 kg [facility] BMI 2020-05-02 20:24:00 38.63 kg/m2 Universi ty of [facility] Systolic blood 2020-04-18 17:55:00 121 mm[Hg] Univer sity of pressure [facility] Diastolic blood 2020-04-18 17:55:00 74 mm[Hg] Unive rsity of [facility] Heart rate 2020-04-18 17:55:00 78 /min Universi ty of [facility] Respiratory rate 2020-04-18 17:55:00 20 /min Univ ersity of [facility] Body height 2020-04-18 17:55:00 180.3 cm Universi ty of [facility] Body weight 2020-04-18 17:55:00 134.174 kg Universi ty of [facility] BMI 2020-04-18 17:55:00 41.26 kg/m2 Universi ty of [facility] Systolic blood 2020-04-16 21:27:00 118 mm[Hg] Univer sity of pressure [facility] Diastolic blood 2020-04-16 21:27:00 71 mm[Hg] Unive rsity of pressure [facility] Heart rate 2020-04-16 21:27:00 80 /min Universi ty [facility] Body temperature 2020-04-16 21:27:00 36.33 Jasmin Univ ersity [facility] Respiratory rate 2020-04-16 21:27:00 16 /min Univ ersity of [facility] Body height 2020-04-16 21:27:00 180.3 cm [facility]i ty [facility] Body weight 2020-04-16 21:27:00 134.99 kg Universi ty [facility] BMI 2020-04-16 21:27:00 41.51 kg/m2 [facility] Systolic blood 2020-04-12 21:38:00 123 mm[Hg] Univer sity of pressure [facility] Diastolic blood 2020-04-12 21:38:00 80 mm[Hg] Unive rsity of pressure [facility] Heart rate 2020-04-12 21:38:00 89 /min Universi ty [facility] Body temperature 2020-04-12 21:38:00 36.83 Jasmin [facility] Respiratory rate 2020-04-12 21:38:00 18 /min Univ ersity [facility] Body height 2020-04-12 21:38:00 180.3 cm Universi ty [facility] Body weight 2020-04-12 21:38:00 135.081 kg [facility]i ty [facility] BMI 2020-04-12 21:38:00 41.53 kg/m2 [facility] Systolic blood 2020-03-29 21:46:00 95 mm[Hg] Univer sity of pressure [facility] Diastolic blood 2020-03-29 21:46:00 55 mm[Hg] Unive rsity of pressure [facility] Heart rate 2020-03-29 21:46:00 83 /min Universi ty [facility] Body temperature 2020-03-29 21:46:00 36.94 Jasmin Univ [facility] Respiratory rate 2020-03-29 21:46:00 18 /min Univ ersity of [facility] Body height 2020-03-29 21:46:00 180.3 cm Universi ty [facility] Body weight 2020-03-29 21:46:00 134.265 kg Universi ty [facility] BMI 2020-03-29 21:46:00 41.28 kg/m2 [facility]i ty [facility] Systolic blood 2020-03-21 21:28:00 105 mm[Hg] Univer sity of pressure [facility] Diastolic blood 2020-03-21 21:28:00 71 mm[Hg] Unive rsity of pressure [facility] Heart rate 2020-03-21 21:28:00 83 /min Universi ty [facility] Body temperature 2020-03-21 21:28:00 36.67 Jasmin [facility] Respiratory rate 2020-03-21 21:28:00 16 /min Univ ersity of [facility] Body height 2020-03-21 21:28:00 180.3 cm Universi ty [facility] Body weight 2020-03-21 21:28:00 133.085 kg Universi ty [facility] BMI 2020-03-21 21:28:00 40.92 kg/m2 Universi ty [facility] Systolic blood 2020-03-14 18:01:00 112 mm[Hg] Univer sity of pressure [facility] Diastolic blood 2020-03-14 18:01:00 71 mm[Hg] Unive rsity of pressure [facility] Heart rate 2020-03-14 18:01:00 73 /min Universi ty of [facility] Body temperature 2020-03-14 18:01:00 36.5 Jasmin Univ ersity [facility] Respiratory rate 2020-03-14 18:01:00 18 /min Univ ersity of [facility] Body height 2020-03-14 18:01:00 180.3 cm Universi ty of [facility] Body weight 2020-03-14 18:01:00 132.904 kg Universi ty of [facility] BMI 2020-03-14 18:01:00 40.87 kg/m2 Universi ty of [facility] Systolic blood 2020-02-14 16:18:00 110 mm[Hg] Univer sity of pressure [facility] Diastolic blood 2020-02-14 16:18:00 73 mm[Hg] Unive rsity of pressure [facility] Heart rate 2020-02-14 16:18:00 79 /min Universi ty of [facility] Body temperature 2020-02-14 16:18:00 36.94 Jasmin Univ ersity [facility] Respiratory rate 2020-02-14 16:18:00 18 /min Univ ersity of [facility] Body height 2020-02-14 16:18:00 175.3 cm [facility]i ty [facility] Body weight 2020-02-14 16:18:00 128.822 kg Universi ty of [facility] BMI 2020-02-14 16:18:00 41.94 kg/m2 Universi ty of [facility] Systolic blood 2019-12-06 16:20:00 126 mm[Hg] Univer sity of pressure [facility] Diastolic blood 2019-12-06 16:20:00 80 mm[Hg] Unive rsity of pressure [facility] Heart rate 2019-12-06 16:20:00 99 /min Universi ty of [facility] Body temperature 2019-12-06 16:20:00 37.17 Jasmin Univ ersity of [facility] Respiratory rate 2019-12-06 16:20:00 18 /min Univ ersity of [facility] Body height 2019-12-06 16:20:00 180.3 cm [facility]i ty [facility] Body weight 2019-12-06 16:20:00 124.286 kg Universi ty of [facility] BMI 2019-12-06 16:20:00 38.22 kg/m2 Universi ty of [facility] Systolic blood 2019-11-28 23:20:00 136 mm[Hg] Univer sity of pressure [facility] Diastolic blood 2019-11-28 23:20:00 76 mm[Hg] Unive rsity of pressure [facility] Heart rate 2019-11-28 23:20:00 81 /min Universi ty of [facility] Respiratory rate 2019-11-28 23:20:00 18 /min Univ ersity of [facility] Oxygen saturation in 2019-11-28 23:20:00 95 /min [facility] Arterial blood by [facility] Body temperature 2019-11-28 20:43:00 37.28 Jasmin Univ ersity of [facility] Body height 2019-11-28 20:43:00 180.3 cm Universi ty [facility] Body weight 2019-11-28 20:43:00 122.471 kg Universi ty of [facility] BMI 2019-11-28 20:43:00 37.66 kg/m2 Universi ty of [facility] Systolic blood 2019-11-03 14:20:00 134 mm[Hg] Cherelle sity of pressure [facility] Diastolic blood 2019-11-03 14:20:00 82 mm[Hg] [facility] Heart rate 2019-11-03 14:20:00 92 /min [facility] Body temperature 2019-11-03 14:20:00 36.67 Jasmin [facility] Respiratory rate 2019-11-03 14:20:00 16 /min [facility] Body height 2019-11-03 14:20:00 180.3 cm [facility] Body weight 2019-11-03 14:20:00 125.363 kg [facility] BMI 2019-11-03 14:20:00 38.55 kg/m2 [facility] Procedures Procedure Date / Time Performing Clinician Source Performed [place] TIME OR 2020-07-18 20:03:05 Belén Crespo [facility] (NON-REPORTABLE) [facility] LAPAROSCOPIC 2020-07-18 17:51:00 Belén Crespo [facility] CHOLECYSTECTOMY [facility] US ABDOMEN LIMITED 2020-07-18 13:22:57 Belén Crespo [facility] COVID-19 (ID NOW RAPID 2020-07-18 12:13:00 [facility] TESTING) [facility] CT ABDOMEN PELVIS W 2020-07-18 11:51:38 Roshan [place] [facility] CONTRAST [facility] POCT TEST 2020-07-18 11:36:00 Roshan [place] [facility] LIPASE 2020-07-18 11:26:00 Singer Roshan [facility] BILI UNCONJUGATED/BILI 2020-07-18 11:26:00 [facility] CONJUG [facility] COMP. METABOLIC PANEL 2020-07-18 11:26:00 Roshan [place] [facility] ([id number]) [facility] CBC WITH DIFF 2020-07-18 11:26:00 Singer [facility] URINALYSIS 2020-07-18 11:26:00 Singer [facility] CONSENT/REFUSAL FOR 2020-07-18 11:10:36 Doctor Kris [facility] DIAGNOSIS AND TREATMENT [place] [address] [place] [facility] CT ABDOMEN PELVIS W 2020-07-10 07:05:30 Matthias Bedolla [facility] CONTRAST Medical Branch LIPASE 2020-07-10 06:16:00 Matthias Bedolla [facility] COMP. METABOLIC PANEL 2020-07-10 06:16:00 Matthias Bedolla [facility] ([id number]) [facility] CBC WITH DIFF 2020-07-10 06:16:00 Matthias Bedolla [facility] URINALYSIS 2020-07-10 06:16:00 Matthias Bedolla [facility] POCT TEST 2020-07-10 06:00:00 Matthias Bedolla [facility] NOTICE OF PRIVACY 2020-07-10 05:38:40 Doctor Kris, [facility]ACTICES [facility] CONSENT/REFUSAL FOR 2020-07-10 05:38:26 Doctor Jasmynssrichie, [facility] DIAGNOSIS AND TREATMENT [facility] NOTICE OF PRIVACY 2020-06-08 03:37:21 Doctor Unassrichie, [facility] PRACTICES [place] [address] [place] [facility] [place] CONSENT/REFUSAL FOR 2020-06-08 03:37:05 Doctor Kris [facility] DIAGNOSIS AND TREATMENT [facility] CONSENT/REFUSAL FOR 2020-06-08 03:37:02 Doctor Kris [facility] DIAGNOSIS AND TREATMENT [facility] POCT TEST 2020-05-24 00:00:00 Ladonna Leyva [facility] CT CHEST PULMONARY 2020-05-18 08:55:26 Ekta Morse [facility] ANGIOGRAM Medical Branch LIPASE 2020-05-18 07:51:00 Ekta Morse [facility] TROPONIN I 2020-05-18 07:51:00 Ekta Morse [facility] HEPATIC FUNCTION PANEL 2020-05-18 07:51:00 Ekta Morse [facility] ([id number]) (ALB,T.PRO,BILI [facility] T,BU/BC,ALT,AST,ALK PHOS) BASIC METABOLIC PANEL (NA, 2020-05-18 07:51:00 Ekta Morse [facility] K, CL, CO2, GLUCOSE, BUN, Medica l Branch CREATININE, CA) CBC WITH DIFF 2020-05-18 07:51:00 Ekta Morse [facility] NOTICE OF PRIVACY 2020-05-18 07:05:35 Doctor Unassigned, [facility] PRACTICES [facility] CONSENT/REFUSAL FOR 2020-05-18 07:04:19 Doctor Unassigned, [facility] DIAGNOSIS AND TREATMENT [facility] CONSENT/REFUSAL FOR 2020-05-18 07:04:14 Doctor Unaigned, [facility] DIAGNOSIS AND TREATMENT [facility] BIOPHYSICAL PROFILE 2020-04-18 18:32:22 Rishi Singh [facility] NON-STRESS TEST 2020-04-17 01:03:44 Ladonna Leyva [facility] POCT URINALYSIS W/O 2020-04-16 00:00:00 Ladonna Leyva [facility] SPECIFIC GRAVITY [facility] NON-STRESS TEST 2020-04-13 01:37:29 Ladonna Leyva [facility] NON-STRESS TEST 2020-03-29 22:00:32 Darnell [facility] NON-STRESS TEST 2020-03-21 22:08:58 Darnell Ruy [facility] NON-STRESS TEST 2020-03-21 22:06:45 Ladonna Leyva [facility] SECOND AND THIRD TRIMESTER 2020-03-09 19:49:00 [facility] SECOND AND THIRD TRIMESTER 2020-03-01 19:32:00 Ladonna Leyva [facility] FLU VACC ([id number]), 6+ 2020-02-14 17:05:03 Ladonna [facility] MONTHS, IM, QUAD Medical Branch TDAP VACCINE, >11 YRS, IM 2020-02-14 16:44:57 Leyva, Ladonna Cam [facility] SECOND AND THIRD TRIMESTER 2020-01-05 21:19:00 Leyva, Ladonna Cam [facility] [place] ULTR[facility]OUND [facility] [place] SECOND AND THIRD TRIMESTER 2020-01-05 20:51:00 Leyva, Ladonna Cam [facility] [place] ULTR[facility] [place] SECOND AND THIRD TRIMESTER 2020-01-05 20:44:00 Leyva, Ladonna Cam U [facility] ULTRASOUND [facility] CONSENT TO CONTACT FOR 2019-12-06 16:09:25 Doctor Unassigned, [facility] VOLUNTARY RESEARCH [place] [address] [place] [facility] URIN[facility]YSIS 2019-11-28 23:13:00 Matthias Bedolla [facility] COMP. METABOLIC PANEL 2019-11-28 21:47:00 Matthias Bedolla [facility] ([id number]) [facility] CBC WITH DIFF 2019-11-28 21:47:00 Matthias Bedolla [facility] NOTICE OF PRIVACY 2019-11-28 20:29:30 Doctor Unassrichie, [facility] PRACTICES [place] [address] [place] [facility] [place] CONSENT/REFUSAL FOR 2019-11-28 20:29:18 Doctor Unassrichie, [facility] DIAGNOSIS AND TREATMENT [address] [place] [facility] POCT URINALYSIS W/O 2019-11-03 14:11:00 Kelsey Wall Uni [facility] [place] SPECIFIC GRAVITY [facility] POCT TEST 2019-11-03 14:10:00 Kelsey Wall [facility] Encounters Start End Encounter Admission Attending Care Care Encounter Source Date/Time Date/Time Type Type Clinicians Facility Department ID 2021-02-[address] [facility] [id number] Univers 08:03:59 ity of [facility] 2021-02-[address] [facility] [id number] Univers 06:12:16 ity of [facility] 2021-02-[address] [facility] [id number] Univers 23:13:52 ity of [facility] 2021-02-[address] [facility] [id number] Univers 18:44:48 ity of [facility] 2021-02-[address] [facility] [id number] Univers 14:23:18 ity of [facility] 2021-04-26 2021-04-26 Laboratory Only, Ang Db Test [facility] 1.2.8 40.114 [id number] Univers 13:00:00 13:15:00 [facility] 350.1.13.10 ity [facility] 4.2.7.2.686 Kostas as ROLANDO?BLEA [phone] [address] MEDICAL OFFICE BUILDING 2021-04-26 2021-04-26 Outpatient R [facility] [id number] Univers 13:00:00 13:00:00 [id number] [facility] 2021-04-26 2021-04-[address] [facility] [id number] Univers 13:00:00 13:00:00 [facility] 2021-04-26 2021-04-26 Outpatient R MATTEO [facility] [id number] Univers 12:50:00 12:50:00 [facility] 2020-08-14 2020-08-14 Outpatient R ZAK [facility] [id number] Univers 14:30:00 14:30:00 BELÉN [id number] [facility] 2020-08-13 2020-08-13 [facility] 1.2.261.439 [id number] 08:41:30 09:13:07 Visit Belén Murillo 350.1.13.10 [place] 4.2.7.2.686 Professio [id number] [address] 2020-08-13 2020-08-13 [facility] 1.2.243.572 [id number] Univers 08:41:30 09:13:07 Visit Belén Murillo 350.1.13.10 i ty [place] [phone] Dc dicduke [address] 2020-08-13 2020-08-13 Outpatient R ZAK [facility] [id number] Univers 08:45:00 08:45:00 BELÉN [id number] [facility] 2020-08-13 2020-08-13 Outpatient R ZAK [facility] [id number] Univers 08:45:00 08:45:00 BELÉN iteaston of [facility] 2020-08-02 2020-08-02 Outpatient R ОЛЕГ [facility] [id number] Univers 10:00:00 10:00:00 LORE [id number] ity o f [facility] 2020-08-02 2020-08-02 Outpatient R ОЛЕГ [facility] [id number] Univers 10:00:00 10:00:00 LORE randolphy o f [facility] 2020-07-18 2020-07-19 Emergency Roshan West [facility] 1.2.840. 114 [id number] Univers 06:12:00 11:15:00 Michael Agarwal 350.1.13.10 ity of [place] 4.2.7.2.686 [facility] [id number] [facility] 081 Branch 2020-07-17 2020-07-17 Patient George [facility] 1.2.840.114 [id number] Univers 00:00:00 00:00:00 Outreach Jonny [facility] 350.1.13.10 i ty of [facility] 4.2.7.2.686 [facility] [phone] Dc dical [address] 2020-07-10 2020-07-10 Emergency [facility] 1.2.598.336 [id number] Univers 00:45:00 03:37:00 Matthias Murillo 350.1.13.10 i ty of [place] 4.2.7.2.686 [facility] [phone] [facility] 084 Branch 2020-07-10 2020-07-10 Orders Doctor LAURY 1.2.840.114 [id number] Univers 00:00:00 00:00:00 Only Unassigned, JONE 350.1.13.[address] [place] [facility] 4.2.7.2.686 Kostas [id number] [facility] 009 Branch 2020-06-21 2020-06-21 Outpatient R DARNELL [facility] [id number] Univers 13:00:00 13:00:00 RUY [id number] ity of [facility] 2020-06-21 2020-06-21 Outpatient R DARNELL [facility] [id number] Univers 13:00:00 13:00:00 RUY [facility] 2020-06-16 2020-06-16 [facility] 1.2.928.716 [id number] Univers 00:00:00 00:00:00 Ruy Murillo 350.1.13.10 i ty [place] [phone] Dc dical [address] 2020-06-11 2020-06-11 Outpatient R [facility] [id number] -[id number] Univers 13:00:00 13:00:00 [id number] ity [facility] 2020-06-11 2020-06-11 Outpatient R [facility] [id number] Univers 13:00:00 13:00:00 ity [facility] 2020-06-07 2020-06-07 Emergency [facility] 1.2.563.533 [id number] Univers 21:44:00 23:54:00 Marissa Murillo 350.1.13.10 i ty [place] [id number] [address] 2020-05-25 2020-05-[address] [facility] [id number] Univers 15:30:00 15:30:00 [id number] [facility] 2020-05-24 2020-05-24 Routine [facility] 1.2.335.232 [id number] Univers 16:32:42 17:20:48 Ruy Murillo 350.1.13.10 ity of Visit [place] [phone] Dc dical [address] 2020-05-24 2020-05-24 Outpatient LADONNA MORGAN [facility] [id number] Univers 14:15:00 14:15:00 [id number] ity [facility] 2020-05-24 2020-05-24 Outpatient Nikos LEYVA LADONNA [facility] [id number] Univers 14:15:00 14:15:00 ity [facility] 2020-05-22 2020-05-22 Outpatient R SANDRA [facility] [id number] -[id number] Univers 16:30:00 16:30:00 JOSHUA [id number] ity [facility] 2020-05-22 2020-05-22 Outpatient R SANDRA [facility] [id number] Univers 16:30:00 16:30:00 [facility]UA [facility] 2020-05-18 2020-05-[address] [facility] [id number] -[id number] Univers 15:30:00 15:30:00 [id number] [facility] 2020-05-18 2020-05-18 Emergency [facility] 1.2.840.114 [id number] Univers 01:25:00 04:52:00 Ekta Murillo 350.1.13.10 ity [facility] 4.2.7.2.686 [facility] [phone] [place] 812194 Branch 2020-05-15 2020-05-[address] [facility] [id number] Univers 11:00:00 11:00:00 RUY [id number] [facility] 2020-05-15 2020-05-[address] [facility] [id number] Univers 11:00:00 11:00:00 RUY [facility] 2020-05-11 2020-05-[address] [facility] [id number] -[id number] Univers 15:30:00 15:30:00 [id number] ity [facility] 2020-05-10 2020-05-[address] [facility] [id number] -[id number] Univers 15:00:00 15:00:00 [id number] ity [facility] 2020-05-07 2020-05-[address] [facility] [id number] -[id number] Univers 15:00:00 15:00:00 [id number] ity [facility] 2020-05-04 2020-05-[address] [facility] [id number] -[id number] Univers 15:30:00 15:30:00 [id number] ity [facility] 2020-05-03 2020-05-[address] [facility] [id number] -[id number] Univers 15:00:00 15:00:00 [id number] ity [facility] 2020-05-02 2020-05-02 Nurse Nurse, [facility] Women's [facility] 1.2.840.114 [id number] Univers 14:01:32 14:32:49 Visit Ladonna Leyva 350.1.13.10 [facility] 4.2.7.2.686 Kostaslam horton Donio [phone] Dc dical nal [address] [place] [address] 2020-05-02 2020-05-02 Outpatient R [facility] [id number] -[id number] Univers 14:00:00 14:00:00 [id number] ity [facility] 2020-05-02 2020-05-02 Outpatient R [facility] [id number] Univers 14:00:00 14:00:00 ity [facility] 2020-04-30 2020-04-[address] [facility] [id number] -[id number] Univers 15:00:00 15:00:00 [id number] ity of [facility] 2020-04-30 2020-04-30 Outpatient R [facility] [id number] Univers 10:00:00 10:00:00 ity of [facility] 2020-04-26 2020-04-26 Outpatient R [facility] [id number] -[id number] Univers 15:15:00 15:15:00 [id number] ity [facility] 2020-04-26 2020-04-26 Outpatient R [facility] [id number] Univers 14:00:00 14:00:00 ity of [facility] 2020-04-23 2020-04-[address] [facility] [id number] -[id number] Univers 15:00:00 15:00:00 [id number] ity [facility] 2020-04-23 2020-04-23 Outpatient P NORAH ZAMUDIO [facility] ZECHARIAH [id number] Univers 05:13:00 05:13:00 NORAH ZAMUDIO ity [facility] 2020-04-18 2020-04-18 Outpatient R [facility] [id number] Univers 15:15:00 15:15:00 [id number] ity [facility] 2020-04-18 2020-04-18 Outpatient R [facility] [id number] Univers 14:00:00 14:00:00 ity of [facility] 2020-04-18 2020-04-18 Initial Rishi SinghIT 1.2.840.114 [id number] Univers 11:38:03 13:17:26 Figueredo, Sonalam Butler Y HE[facility] 350.1 .13.10 ity of [place] [id number] [address] 2020-04-16 2020-04-16 Routine Room, [facility] 1.2.840.1 14 [id number] Univers 15:00:45 17:11:56 Ladonna Leyva Faizan Murillo 350.1.13.10 ity of [place] [phone] Dc dical nal [address] [place] [address] 2020-04-16 2020-04-[address] [facility] [id number] Univers 15:00:00 15:00:00 [id number] ity of [facility] 2020-04-16 2020-04-16 Outpatient R LADONNA LEYVA [facility] [id number] Univers 15:00:00 15:00:00 ity of [facility] 2020-04-16 2020-04-16 Telephone RIC Singh 1.2.840.114 [id number] Univers 00:00:00 00:00:00 Rishi Y HEALTH 350.1.13.10 i ty of [place] [phone] [address] 2020-04-13 2020-04-13 Monitoring Manager Ultrasound, [facility] 1.2 .840.114 [id number] Univers 13:25:43 13:55:43 Visit Amada Hernandez 350.1.13.10 ity of [place] [phone] Dc dical nal [address] [place] [address] 2020-04-13 2020-04-13 Outpatient R [facility] [id number] -[id number] Univers 13:30:00 13:30:00 [id number] ity of [facility] 2020-04-13 2020-04-13 Outpatient P AMADA HERNANDEZ [facility] [id number] Univers 13:30:00 13:30:00 AMADA HERNANDEZ ity [facility] 2020-04-12 2020-04-12 Routine Room, [facility] 1.2.840.1 14 [id number] Univers 14:59:15 16:52:34 LeyvaLadonna [facility] 350.1.13.10 ity of [place] 4[place].2.[place] [phone] Dc dical [address] 2020-04-12 2020-04-[address] [facility] [id number] -[id number] Univers 15:00:00 15:00:00 [id number] ity [facility] 2020-04-12 2020-04-12 Outpatient R [facility] [id number] Univers 15:00:00 15:00:00 ity [facility] 2020-04-09 2020-04-09 Outpatient R [facility] [id number] Univers 15:00:00 15:00:00 [id number] ity [facility] 2020-04-09 2020-04-09 Outpatient R [facility] [id number] Univers 15:00:00 15:00:00 ity [facility] 2020-04-04 2020-04-04 Monitoring Manager Ultrasound, [facility] 1.2 .840.114 [id number] Univers 09:54:38 10:24:38 Visit Amada Hernandez ECONOMIC DEVELOPMENT COORDINATOR 350.1.13.10 ity [facility] 4.2.7.2.686 Kostas as MATERNAL [phone] Med ical & CHILD [address] [place] [address] 2020-04-04 2020-04-04 Outpatient R [facility] [id number] Univers 10:00:00 10:00:00 ity [facility] 2020-04-04 2020-04-04 Outpatient P [facility] [id number] Univers 10:00:00 10:00:00 ity [facility] 2020-03-30 2020-03-30 Monitoring Manager Ultrasound, [facility] 1.2 .840.114 [id number] Univers 14:26:00 14:56:00 Visit Norah Zamudio 350.1.13.10 ity of [place] [phone] Dc dic[address] 2020-03-30 2020-03-30 Outpatient R [facility] [id number] Univers 14:30:00 14:30:00 ity of [facility] 2020-03-30 2020-03-30 Outpatient R [facility] [id number] Univers 14:30:00 14:30:00 ity of [facility] 2020-03-29 2020-03-29 Routine Room, [facility] 1.2.840.1 14 [id number] Univers 14:58:43 16:00:14 Ladonna Leyva Faizan Murillo 350.1.13.10 ity of Visit [place].2.[place] [phone] Dc dic[address] 2020-03-29 2020-03-[address] [facility] [id number] Univers 15:00:00 15:00:00 ity of [facility] 2020-03-29 2020-03-29 Outpatient R [facility] [id number] Univers 15:00:00 15:00:00 ity of [facility] 2020-03-28 2020-03-28 Case Ladonna Leyva [facility] 1.2.232.567 [id number] Univers 00:00:00 00:00:00 Management Faizan Murillo 350.1.13.10 ity of [place].2.[place] [phone] Dc dical nal [address] [place] [address] 2020-03-27 2020-03-27 Outpatient R [facility] [id number] -[id number] Univers 15:00:00 15:00:00 ity of [facility] 2020-03-26 2020-03-26 Monitoring Manager Ultrasound, Ad[facility] 1.2 .840.114 [id number] Univers 15:09:46 15:33:40 Visit Mayra Pinto ECONOMIC DEVELOPMENT COORDINATOR 350.1. 13.10 ity of [facility] 4.2.7.2.686 Kostas as MATERNAL [phone] Med ical & CHILD [address] [place] [address] 2020-03-26 2020-03-26 Outpatient R [facility] [id number] Univers 14:45:00 14:45:00 ity of [facility] 2020-03-26 2020-03-26 Outpatient P [facility] [id number] Univers 14:45:00 14:45:00 ity [facility] 2020-03-21 2020-03-21 Routine Room, [facility] 1.2.840.1 14 [id number] Univers 15:01:47 15:56:49 Ladonna Leyva [facility] [place] 350.1.13.10 ity of [place] 4.2.7.2.686 Mame horton Professio [id number] Dc dical [address] 2020-03-21 2020-03-21 Outpatient R [facility] [id number] Univers 15:00:00 15:00:00 [id number] ity [facility] 2020-03-21 2020-03-21 Outpatient R [facility] [id number] Univers 15:00:00 15:00:00 ity of [facility] 2020-03-19 2020-03-19 Outpatient R [facility] [id number] Univers 15:00:00 15:00:00 [id number] ity [facility] 2020-03-19 2020-03-19 Outpatient R [facility] [id number] Univers 15:00:00 15:00:00 ity of [facility] 2020-03-19 2020-03-19 Outpatient R DARNELL, [facility] [id number] Univers 00:00:00 00:00:00 RUY ity [facility] 2020-03-15 2020-03-15 Outpatient R [facility] [id number] Univers 15:00:00 15:00:00 [id number] ity of [facility] 2020-03-15 2020-03-15 Outpatient R [facility] [id number] Univers 15:00:00 15:00:00 ity [facility] 2020-03-14 2020-03-14 Routine Room, [facility] 1.2.840.1 14 [id number] Univers 11:24:52 12:51:24 Ladonna Leyvaton 350.1.13.10 ity of [place]2.[place] [phone] Dc dical [address] 2020-03-14 2020-03-14 Outpatient R LADONNA LEYVA [facility] [id number] Univers 11:15:00 11:15:00 [id number] ity of [facility] 2020-03-14 2020-03-14 Outpatient R LADONNA LEYVA [facility] [id number] Univers 11:15:00 11:15:00 ity of [facility] 2020-03-14 2020-03-14 Outpatient R [facility] [id number] Univers 11:00:00 11:00:00 ity of [facility] 2020-03-14 2020-03-14 Letter [facility] 1.2.468.263 [id number] Univers 00:00:00 00:00:00 (Out) Ruy Murillo 350.1.13.10 i ty of [place]2.[place] [id number] [address] 2020-03-13 2020-03-13 Outpatient R [facility] [id number] Univers 15:00:00 15:00:00 [id number] ity of [facility] 2020-03-13 2020-03-13 Outpatient R [facility] [id number] Univers 15:00:00 15:00:00 ity of [facility] 2020-03-09 2020-03-09 Monitoring Manager 5, [facility] Room UNIVERSIT 1 .2.840.114 [id number] Univers 13:26:10 14:23:27 Visit Amada Hernandez [facility] 350.1.13.10 ity of [place] [phone] [address] 2020-03-09 2020-03-09 Outpatient R [facility] [id number] Univers 13:00:00 13:00:00 [id number] ity of [facility] 2020-03-09 2020-03-09 Outpatient P [facility] [id number] Univers 13:00:00 13:00:00 ity [facility] 2020-03-09 2020-03-09 Telephone Ladonna Leyva [facility] 1.2.840.114 [id number] Univers 00:00:00 00:00:00 Faizan Murillo 350.1.13.10 i ty of [place] [phone] Dc dical nal [address] [facility] 2020-03-02 2020-03-02 Monitoring Manager 2, [facility] Lab [facility] 1.2.840.114 [id number] Univers 10:17:56 10:32:56 Visit Ladonna Leyva 350.1.13.10 ity of [place] 4[place].2.[place] [phone] Dc dical nal [address] [facility] 2020-03-02 2020-03-02 Outpatient R [facility] [id number] Univers 10:15:00 10:15:00 ity [facility] 2020-03-02 2020-03-02 Outpatient R LADONNA LEYVA [facility] [id number] Univers 10:15:00 10:15:00 ity [facility] 2020-03-01 2020-03-01 Monitoring Manager 3, [facility] Room UNIVERSIT 1 .2.840.114 [id number] Univers 12:58:02 13:44:17 Visit [facility] 350.1.13.10 ity of [place] [phone] [address] 2020-03-01 2020-03-01 Outpatient R [facility] [id number] Univers 13:00:00 13:00:00 ity of [facility] 2020-03-01 2020-03-01 Outpatient P [facility] [id number] Univers 13:00:00 13:00:00 ity of [facility] 2020-02-20 2020-02-20 Outpatient R [facility] [id number] Univers 11:30:00 11:30:00 [id number] ity of [facility] 2020-02-20 2020-02-20 Outpatient R [facility] [id number] Univers 11:30:00 11:30:00 ity of [facility] 2020-02-14 2020-02-14 Routine Ladonna Leyva [facility] 1.2.160.823 [id number] Univers 11:08:11 12:13:04 Faizan Murillo 350.1.13.10 ity of [place].2.[place] [phone] Dc dical [address] 2020-02-14 2020-02-14 Outpatient R LADONNA LEYVA [facility] [id number] Univers 11:15:00 11:15:00 ity of [facility] 2020-02-14 2020-02-14 Outpatient R GORDON LADONNA [facility] [id number] Univers 11:15:00 11:15:00 ity of [facility] 2020-01-16 2020-01-16 Outpatient R DARNELL [facility] [id number] Univers 08:00:00 08:00:00 RUY [id number] [facility] 2020-01-16 2020-01-16 Outpatient R DARNELL [facility] [id number] Univers 08:00:00 08:00:00 [facility] 2020-01-09 2020-01-09 Outpatient R DARNELL [facility] [id number] Univers 16:00:00 16:00:00 RUY [id number] [facility] 2020-01-09 2020-01-09 Outpatient R DARNELL [facility] [id number] Univers 16:00:00 16:00:00 [facility] 2020-01-05 2020-01-06 Monitoring Manager 1, [facility] Room UNIVERSIT 1 .2.840.114 [id number] Univers 14:15:37 08:27:56 Visit Gurmeet Hall [facility] 350.1.13.10 ity of [place] [id number] [address] 2020-01-05 2020-01-05 Outpatient R [facility] [id number] Univers 14:15:00 14:15:00 ity [facility] 2020-01-05 2020-01-05 Outpatient P [facility] [id number] Univers 14:15:00 14:15:00 ity of [facility] 2020-01-04 2020-01-05 Office 2, [facility] Genetic Consults UNIVERS IT 1.2.840.114 [id number] Univers 12:14:02 09:23:22 Visit Ortiz Matthew Montes De Oca [facility] 350.1.13.10 ity of [place] [id number] [address] 2020-01-04 2020-01-04 Outpatient R [facility] [id number] Univers 13:00:00 13:00:00 ity of [facility] 2020-01-04 2020-01-04 [address]patient [address] [facility] [id number] Univers 13:00:00 13:00:00 ity of [facility] 2020-01-03 2020-01-03 Monitoring Manager Ultrasound, [facility] 1.2 .840.114 [id number] Univers 08:15:39 09:15:39 Visit Mayra Pinto ECONOMIC DEVELOPMENT COORDINATOR 350.1. 13.10 ity of REGIONAL 4.2.7.2.686 Kostas as MATERNAL [id number] Med ical & CHILD [address] [place] [address] 2020-01-03 2020-01-03 Outpatient R [facility] [id number] Univers 08:00:00 08:00:00 ity of [facility] 2020-01-03 2020-01-03 Outpatient R [facility] [id number] Univers 08:00:00 08:00:00 ity of [facility] 2019-12-12 2019-12-12 Outpatient R [facility] [id number] Univers 11:00:00 11:00:00 [id number] ity of [facility] 2019-12-12 2019-12-12 Outpatient R [facility] [id number] Univers 11:00:00 11:00:00 ity of [facility] 2019-12-06 2019-12-06 Initial Ladonna Leyva [facility] 1.2.779.875 [id number] Univers 11:08:00 12:04:06 [place] 350.1.13.10 ity of [place] [facility] [id number] Dc dical [address] 2019-12-06 2019-12-06 Outpatient R LADONNA LEYVA [facility] [id number] Univers 11:00:00 11:00:00 [id number] ity of [facility] 2019-12-06 2019-12-06 Outpatient Nikos GORDON LADONNA [facility] [id number] Univers 11:00:00 11:00:00 ity of [facility] 2019-12-06 2019-12-06 Orders Doctor LAURY 1.2.840.114 [id number] Univers 00:00:00 00:00:00 Only Unassigned, JONE 350.1.13.[address] [place] [facility] 4.2.7.2.686 Kostas as [phone] [address] 2019-11-28 2019-11-28 Emergency [facility] 1.2.417.885 [id number] Univers 16:03:00 19:22:00 Matthias Murillo 350.1.13.10 i ty [place] [id number] [address] 2019-11-28 2019-11-28 Orders Doctor LAURY 1.2.840.114 [id number] Univers 00:00:00 00:00:00 Only Unassigned, JONE 350.1.13.[address] [place] [address] [place] [facility] 4.2.7.2.686 Kostas as [phone] [address] 2019-11-22 2019-11-22 [facility] 1.2.840.114 [id number] Univers 00:00:00 00:00:00 Kelsey C ECONOMIC DEVELOPMENT COORDINATOR 350.1.13.10 ity of [facility] [id number] Kostas as MATERNAL [phone] Med ical & CHILD 107 [facility] 2019-11-22 2019-11-22 Telephone Pob1, Acute [facility] 1.2.840.114 [id number] Univers 00:00:00 00:00:00 [facility] [id number] ity of [place] [id number] Kostas as Professio [phone] Dc dical nal 044 [facility] [place] 2019-11-18 2019-11-18 Laboratory Lab, Adc Fam Pob I [facility] 1.2. 840.114 [id number] Univers 10:40:23 11:00:23 Only Amada Hernandez [facility] [id number] ity of [place] [id number] Kostas as Professio [phone] Dc dical nal 044 [facility] 2019-11-18 2019-11-18 Monitoring Manager Ultrasound, Ang-Mfm [facility] 1. .840.114 [id number] Univers 10:00:28 10:24:10 Visit HernandezEmeterio amesta ECONOMIC DEVELOPMENT COORDINATOR 350.1.13.10 ity of [facility] 4.2.7.2.686 Kostas as MATERNAL [phone] Med ical & CHILD 369 [facility] 2019-11-18 2019-11-18 [address] [facility] [id number] Univers 10:00:00 10:00:00 [id number] ity of [facility] 2019-11-18 2019-11-18 Outpatient [address] [facility] [id number] Univers 10:00:00 10:00:00 ity of [facility] 2019-11-10 2019-11-10 Outpatient R [facility] [id number] Univers 14:45:00 14:45:00 [id number] ity of [facility] 2019-11-10 2019-11-10 Outpatient [address] [facility] [id number] Univers 14:45:00 14:45:00 ity of [facility] 2019-11-07 2019-11-07 Telephone [place], [facility] [id number] Univers 00:00:00 00:00:00 Kelsey C ECONOMIC DEVELOPMENT COORDINATOR 350.1.13.10 ity of [facility] 4.2.7.2.686 Kostas as MATERNAL [id number] Med ical & CHILD 107 [facility] 2019-11-03 2019-11-03 Initial [place], [facility] [id number] Univers 09:02:46 10:40:27 Kelsey C ECONOMIC DEVELOPMENT COORDINATOR 350.1.13.10 ity of Visit REGIONAL 4.2.7.2.686 Kostas as MATERNAL [id number] Med ical & CHILD [address] [place] [address] 2019-11-03 2019-11-03 Outpatient Nikos WALL [facility] [id number] Univers 08:30:00 08:30:00 KELSEY ity o f [facility] 2018-01-27 2018-01-27 Outpatient [place] [place] [id number] Common 16:01:00 16:01:00 [facility] it [facility] 2018-01-26 2018-01-26 Outpatient [facility] [place] [id number] Common 13:20:00 13:20:00 [facility] 2017-11-18 2017-11-18 Outpatient [place] [id number] Common 15:15:00 15:15:00 [facility] Results Test Test Test Results Result Source Description Time Comments Comments FL TIME OR 2020-06- These images do not require University of (NON-REPORTABLE 24 a Radiology diagnostic [facility] ) 20:04:28 report. Branch US ABDOMEN 2020-06- Cholelithiasis without U niversity of LIMITED 24 sonographic evidence for [facility] 13:51:23 acute cholecystitis. Mild Branch hepatic [...] acute University of PELVIS W 24 intra-abdominal [place] Med ical CONTRAST 13:48:54 abnormality. The Branch gallbladder is unremarkable.The previously seen radiopaque cholelithiasis is not seen on this study. 2. ?Small supraumbilical fat-containing hernia with trace inflammatorystranding, likely postsurgical in nature. 3. ?Hepatomegaly with diffuse hepatic steatosis. Thickened endometriumsuggests secretory phase of menstrual cycle. A corpus luteal cyst is seenin the left ovary. Preliminary Report Dictated by Resident: Joel Nicole MD., have reviewed this study and agree [...] Comme nts BILI CONJ (test code = 2609103058) 0.0 mg/dL 0.0-0.3 BILI UNCON (test code = 7739739724) 0.6 mg/dL 0.1-1.1 Lab Interpretation (test code = 67314-2) Normal [facility]APID TEST[facility]2020-07-18 13:20:12 Test Item Value Reference Range Interpretation Comments SARS-CoV-2 Rapid ID NOW Not Detected Not Detected (test code = 52916-5) TRISTON (test code = TRISTON) ID NOW COVID-19 Assay is an isothermal nucleic acid amplification test intended for the qualitative detection of nucleic acid from SARS-CoV-2 viral RNA in nasopharyngeal (PHP MAGENT[employer] DEVELOPER) specimens. It is used under Emergency Use [...] indicated. Lab Interpretation Normal (test code = 63545-7) [facility]2021-[facility]-24 12:30:58 Test Item Value Reference Range Interpretation Comments APPEARANCE (test code = Clear Clear 7329091413) COLOR (test code = Yellow Yellow 7830436211) PH (test code = 4.8-8.0 0119098110) SP GRAVITY (test code = 1.003-1.030 9097125120) GLU U QUAL (test code = Normal Normal 1297211827) BLOOD (test code = Negative Negative 3788309083) KETONES (test code = Negative Negative 1453506515) PROTEIN (test code = Negative Negative 2887-8) UROBILIN (test code = Normal Normal 3519704075) BILIRUBIN (test code = Negative Negative 5237122076) NITRITE (test code = Negative Negative 3913357612) LEUK VAHID (test code = 250/uL Negative A 3789683294) RBC/HPF (test code = See_Comment H [Autom ated message] 1851226208) The system [employer] generated this result transmitted ref erence range: 0 - 3 HP F. The reference range was not used to int erpret this result as normal/abnormal . WBC/HPF (test code = See_Comment H [Autom ated message] 7769210600) The system [employer] generated this result transmitted ref erence range: 0 - 5 HP F. The reference range was not used to int erpret this result as normal/abnormal . BACTERIA (test code = Few Negative A 8285080661) SQ EPITH (test code = HPF 5155983285) Lab Interpretation (test Abnormal code = 54186-8) [facility]. METABOLIC PANEL (48648)2020-07-18 12:30:33 Test Item Value Reference Range Interpretation Comments NA (test code = 140 mmol/L 135-145 7079058915) K (test code = 4.2 mmol/L 3.5-5.0 5819309363) CL (test code = 108 mmol/L 98-108 3172022740) CO2 TOTAL (test code = 24 mmol/L 23-31 7390329489) AGAP (test code = 2-16 2511991868) BUN (test code = 13 mg/dL 7-23 6318284232) GLUCOSE (test code = 101 mg/dL 70-110 8772732998) CREATININE (test code = 0.47 mg/dL 0.50-1.04 L 7048003080) TOTAL BILI (test code = 0.8 mg/dL 0.1-1.3 8018696047) CALCIUM (test code = 8.7 mg/dL 8.6-10.6 7511038405) T PROTEIN (test code = 7.2 g/dL 6.3-8.2 4582376507) ALBUMIN (test code = 4.4 g/dL 3.5-5.0 8035132566) ALK PHOS (test code = 169 U/L 34-122 H 1860132354) ALTv (test code = 79 U/L 5-35 H 1742-6) AST(SGOT) (test code = 37 U/L 13-40 1682902241) eGFR Calculation mL/min/1.73m2 (Non-) (test code = 2888965874) eGFR Calculation mL/min/1.73m2 () (test code = 1080695352) TRISTON (test code = TRISTON) Association of [...] tests). Lab Interpretation Abnormal (test code = 31163-5) [facility]2021-[facility] 12:18:04 Test Item Value Reference Range Interpretation Comments LIPASE (test code = 6811689224) 127 U/L 0-220 Lab Interpretation (test code = Normal 33113-7) [facility] WITH [id number] 11:56:46 Test Item Value Reference Range Interpretation [...] RDW-SD (test code = 42.2 fL 39.0-49.9 23240-8) RDW-CV (test code = 12.6 % 12.0-15.5 788-0) PLT (test code = See_Comment [Automated 777-3) message] The sy stem which generated this result transmitted reference range : 166 - 358 10*3/ ?L. The reference r dejuan was not used to interpret this result as normal/abnormal . MPV (test code = 11.0 fL 9.5-12.9 25166-9) NRBC/100 WBC (test See_Comment [Automat ed code = 1633044965) message] The system which generated this result transmitted reference range : 0.0 - 10.0 /100 WBCs. The refer ence range was not u sed to interpret th is result as normal/abnormal . NRBC x10^3 (test code <0.01 See_Comment [Auto mated = 9911836740) message] The s ystem which generated this result transmitted reference range : 10*3/?L. The reference range was not used to interpret this result as normal/abnormal . GRAN MAT (NEUT) % 73.4 % (test code = 770-8) IMM GRAN % (test code 0.40 % = 8146528503) LYMPH % (test code = 19.4 % 736-9) MONO % (test code = 4.8 % 5905-5) EOS % (test code = 1.5 % 713-8) BASO % (test code = 0.5 % 706-2) GRAN MAT x10^3(ANC) 8.01 10*3/uL 1.88-7.09 H (test code = 4700341485) IMM GRAN x10^3 (test 0.04 10*3/uL 0.00-0.06 code = 4763961289) LYMPH x10^3 (test code 2.12 10*3/uL 1.32-3.29 = 731-0) MONO x10^3 (test code 0.52 10*3/uL 0.33-0.92 = 742-7) EOS x10^3 (test code = 0.16 10*3/uL 0.03-0.39 711-2) BASO x10^3 (test code 0.05 10*3/uL 0.01-0.07 = 704-7) Lab Interpretation Abnormal (test code = 34699-0) [facility]wood[facility] [id number] 11:36:00 Test Item Value Reference Range Interpretation Comments POCT PREG (test code = 1605) Negative On board controls acceptable with Present C Line (test code = 3574) POCT PREG LOT # (test code = HCG 8208052 3575) POCT PREG TEST DATE (test 12/25/2021 code = 3576) Lab Interpretation (test code = Normal 72743-6) [facility] ABDOMEN PELVIS W [id number] 08:04:39 No acute process identified in the abdomen or pelvis. Cholelithiasis without CT evidence for acute cholecystitis. RL: 460 AFC: [id number] Ordering physician: MATTHIAS BEDOLLA Indication: Acute abdominal [...] abdomen and pelvis demonstrate no osseousdestructive lesion. [facility], Radiant Results Inft User - 07/10/2020 3:05 [...] pelvis.Cholelithiasis without CT evidence for acute cholecystitis.RL: 460AFC: [id number] Electronically signed by Griselda Varner MD, PhD at07/10/2020 3:04 AM[facility] [id number] 06:46:26 Test Item Value Reference Range Interpretation Comments APPEARANCE (test code = Cloudy Clear A 6409393456) COLOR (test code = Yellow Yellow 0583290071) PH (test code = 4.8-8.0 5636654912) SP GRAVITY (test code = 1.003-1.030 5125081985) GLU U QUAL (test code = Normal Normal 8024603656) BLOOD (test code = Negative Negative 0887934879) KETONES (test code = Negative Negative 9684720731) PROTEIN (test code = Negative Negative 2887-8) UROBILIN (test code = Normal Normal 9609831450) BILIRUBIN (test code = Negative Negative 3709614363) NITRITE (test code = Negative Negative 8268644030) LEUK VAHID (test code = 25/uL Negative A 2972838738) RBC/HPF (test code = See_Comment [Autom ated message] 3033170259) The system [employer] generated this result transmitted ref erence range: 0 - 3 HP F. The reference range was not used to int erpret this result as normal/abnormal . WBC/HPF (test code = See_Comment H [Autom ated message] 3921138686) The system [employer] generated this result transmitted ref erence range: 0 - 5 HP F. The reference range was not used to int erpret this result as normal/abnormal . BACTERIA (test code = Many Negative A 7800503447) MUCOUS (test code = Slight Negative LPF A 6775125440) AMORPHOUS (test code = Moderate Rare HPF A 6879288091) SQ EPITH (test code = HPF 9021281954) Lab Interpretation (test Abnormal code = 02184-6) [facility]. METABOLIC PANEL (12776)2020-07-10 06:33:53 Test Item Value Reference Range Interpretation Comments NA (test code = 139 mmol/L 135-145 4735162250) K (test code = 3.7 mmol/L 3.5-5.0 2316387195) CL (test code = 102 mmol/L 98-108 0581737054) CO2 TOTAL (test code = 29 mmol/L 23-31 2992888587) AGAP (test code = 2-16 9200176222) BUN (test code = 12 mg/dL 7-23 6237386483) GLUCOSE (test code = 118 mg/dL 70-110 H 3287781518) CREATININE (test code = 0.67 mg/dL 0.50-1.04 0336605120) TOTAL BILI (test code = 0.6 mg/dL 0.1-1.6 0885278199) CALCIUM (test code = 9.2 mg/dL 8.6-10.6 4192760386) T PROTEIN (test code = 7.2 g/dL 6.3-8.2 6765197297) ALBUMIN (test code = 4.6 g/dL 3.5-5.0 2060041048) ALK PHOS (test code = 168 U/L 34-122 H 3659892648) ALTv (test code = 111 U/L 5-35 H 1742-6) AST(SGOT) (test code = 30 U/L 13-40 3421711803) eGFR Calculation mL/min/1.73m2 (Non-) (test code = 4898592464) eGFR Calculation mL/min/1.73m2 () (test code = 1829531749) TRISTON (test code = TRISTON) Association of [...] tests). Lab Interpretation Abnormal (test code = 06613-0) [facility]2021-[facility]-16 06:33:18 Test Item Value Reference Range Interpretation Comments LIPASE (test code = 3374163398) 85 U/L 0-220 Lab Interpretation (test code = Normal 41483-5) [facility]woodCB WITH [id number] 06:24:16 Test Item Value Reference Range Interpretation Comments WBC (test code = See_Comment H [Automated 8190-2) message] The sy stem which generated this [...] RDW-SD (test code = 43.1 fL 39.0-49.9 10465-5) RDW-CV (test code = 12.6 % 12.0-15.5 788-0) PLT (test code = See_Comment [Automated 777-3) message] The sy stem which generated this result transmitted reference range : 166 - 358 10*3/ ?L. The reference r dejuan was not used to interpret this result as normal/abnormal . MPV (test code = 10.1 fL 9.5-12.9 07786-5) NRBC/100 WBC (test See_Comment [Automat ed code = 4189265289) message] The system which generated this result transmitted reference range : 0.0 - 10.0 /100 WBCs. The refer ence range was not u sed to interpret th is result as normal/abnormal . NRBC x10^3 (test code <0.01 See_Comment [Auto mated = 4371639691) message] The s ystem which generated this result transmitted reference range : 10*3/?L. The reference range was not used to interpret this result as normal/abnormal . GRAN MAT (NEUT) % 83.3 % (test code = 770-8) IMM GRAN % (test code 0.30 % = 0492431494) LYMPH % (test code = 12.4 % 736-9) MONO % (test code = 2.8 % 5905-5) EOS % (test code = 0.8 % 713-8) BASO % (test code = 0.4 % 706-2) GRAN MAT x10^3(ANC) 9.80 10*3/uL 1.88-7.09 H (test code = 7738637766) IMM GRAN x10^3 (test 0.04 10*3/uL 0.00-0.06 code = 8022398179) LYMPH x10^3 (test code 1.46 10*3/uL 1.32-3.29 = 731-0) MONO x10^3 (test code 0.33 10*3/uL 0.33-0.92 = 742-7) EOS x10^3 (test code = 0.09 10*3/uL 0.03-0.39 711-2) BASO x10^3 (test code 0.05 10*3/uL 0.01-0.07 = 704-7) Lab Interpretation Abnormal (test code = 41871-8) [facility] [id number] 06:00:00 Test Item Value Reference Range Interpretation Comments POCT PREG (test code = 1605) negative On board controls acceptable with present C Line (test code = 3574) POCT PREG LOT # (test code = 3575) [id number] POCT PREG TEST DATE (test 2022-02-24 code = 3576) Lab Interpretation (test code = Normal 36585-5) [facility] [id number] 22:58:00 Test Item Value Reference Range Interpretation Comments POCT PREG (test code = 1605) Negative On board controls acceptable with C Yes Line (test code = 3574) POCT PREG LOT # (test code = 3575) POCT PREG TEST DATE (test code = 3576) Lab Interpretation (test code = Normal 32416-2) [facility]woodPO[facility] [id number] 22:58:00 Test Item Value Reference Range Interpretation Comments POCT PREG (test code = 1605) Negative On board controls acceptable with C Yes Line (test code = 3574) POCT PREG LOT # (test code = 3575) POCT PREG TEST DATE (test code = 3576) Lab Interpretation (test code = Normal 66495-4) [facility]woodPO[facility] [id number] 22:58:00 Test Item Value Reference Range Interpretation Comments POCT PREG (test code = 1605) Negative On board controls acceptable with C Yes Line (test code = 3574) POCT PREG LOT # (test code = 3575) POCT PREG TEST DATE (test code = 3576) Lab Interpretation (test code = Normal 48664-7) [facility]woodPO[facility] [id number] 22:58:00 Test Item Value Reference Range Interpretation Comments POCT PREG (test code = 1605) Negative On board controls acceptable with C Yes Line (test code = 3574) POCT PREG LOT # (test code = 3575) POCT PREG TEST DATE (test code = 3576) Lab Interpretation (test code = Normal 58616-6) [facility]woodHepatic Function Panel (ALB, T.PRO, BILI T, BU/BC, ALT, AST, ALK PHOS)2020-05-18 08:40:00 Test Item Value Reference Range Interpretation Comments TOTAL BILI (test code = 7620904552) 0.5 mg/dL 0.1-1.1 BILI UNCON (test code = 9005110532) 0.3 mg/dL 0.1-1.1 BILI CONJ (test code = 9183560583) 0.0 mg/dL 0-0.3 T PROTEIN (test code = 2856722735) 6.9 g/dL 6.3-8.2 ALBUMIN (test code = 7195234744) 4.0 g/dL 3.5-5 ALK PHOS (test code = 7848985173) 188 U/L 34-122 H ALTv (test code = 1742-6) 228 U/L 5-35 H AST(SGOT) (test code = 0688280498) 104 U/L 13-40 H Lab Interpretation (test code = Abnormal 71083-4) [facility]wood[facility] Function [facility] (ALB, T.PRO, BILI T, BU/BC, ALT, AST, ALK PHOS)2020-05-18 08:40:00 Test Item Value Reference Range Interpretation Comments TOTAL BILI (test code = 3501450379) 0.5 mg/dL 0.1-1.1 BILI UNCON (test code = 9265210478) 0.3 mg/dL 0.1-1.1 BILI CONJ (test code = 9327781479) 0.0 mg/dL 0-0.3 T PROTEIN (test code = 0622375980) 6.9 g/dL 6.3-8.2 ALBUMIN (test code = 1043558423) 4.0 g/dL 3.5-5 ALK PHOS (test code = 9471281385) 188 U/L 34-122 H ALTv (test code = 1742-6) 228 U/L 5-35 H AST(SGOT) (test code = 7906227246) 104 U/L 13-40 H Lab Interpretation (test code = Abnormal 70686-3) [facility]wood[facility] Metabolic Panel (NA, K, CL, CO2, GLUCOSE, BUN, CREATININE, CA)2020-05-18 08:39:00 Test Item Value Reference Range Interpretation Comments NA (test code = 138 mmol/L 135-145 1009118514) K (test code = 3.9 mmol/L 3.5-5 3623687053) CL (test code = 105 mmol/L 98-108 3077637112) CO2 TOTAL (test code = 24 mmol/L 23-31 7830762914) AGAP (test code = 2-16 5954826870) BUN (test code = 13 mg/dL 7-23 8375414458) GLUCOSE (test code = 103 mg/dL 70-110 3194270099) CREATININE (test code 0.78 mg/dL 0.5-1.04 = 6011830047) CALCIUM (test code = 8.9 mg/dL 8.6-10.6 7152033581) eGFR Calculation mL/min/1.73m2 (Non-) (test code = 5865486312) eGFR Calculation mL/min/1.73m2 () (test code = 3065669911) TRISTON (test code = TRISTON) Association of [...] or urine or abnormalities in imaging tests). [facility]woodLipase [id number] 08:39:00 Test Item Value Reference Range Interpretation Comments LIPASE (test code = 9893584758) 108 U/L 0-220 Lab Interpretation (test code = Normal 28484-2) [facility] KingwoodTroponin [id number] 08:39:00 Test Item Value Reference Range Interpretation Comments TROPONIN I (test <0.012 See_Comment [Automated code = 2044024113) message] The system which generated this result [...] ? Lab Interpretation Normal (test code = 25591-5) [facility] (NA, K, CL, CO2, GLUCOSE, BUN, CREATININE, CA)2020-05-18 08:39:00 Test Item Value Reference Range Interpretation Comments NA (test code = 138 mmol/L 135-145 3389131785) K (test code = 3.9 mmol/L 3.5-5 8980697050) CL (test code = 105 mmol/L 98-108 7602231733) CO2 TOTAL (test code = 24 mmol/L 23-31 5719760889) AGAP (test code = 2-16 9877203343) BUN (test code = 13 mg/dL 7-23 0597466609) GLUCOSE (test code = 103 mg/dL 70-110 5291057751) CREATININE (test code 0.78 mg/dL 0.5-1.04 = 8876626131) CALCIUM (test code = 8.9 mg/dL 8.6-10.6 8971961063) eGFR Calculation mL/min/1.73m2 (Non-) (test code = 0684877877) eGFR Calculation mL/min/1.73m2 () (test code = 0303025025) TRISTON (test code = TRISTON) Association of [...] or urine or abnormalities in imaging tests). [facility] KingwoodLipase [id number] 08:39:00 Test Item Value Reference Range Interpretation Comments LIPASE (test code = 8311252780) 108 U/L 0-220 Lab Interpretation (test code = Normal 12602-9) [facility] KingwoodTroponin [id number] 08:39:00 Test Item Value Reference Range Interpretation Comments TROPONIN I (test <0.012 See_Comment [Automated code = 2232513736) message] The system which generated this result [...] ? Lab Interpretation Normal (test code = 66352-3) [facility] with [id number] 08:09:00 Test Item Value Reference Range Interpretation Comments WBC (test code = See_Comment H [Automated 3617-2) message] The sy stem which generated this result transmitted reference range : 4.30 - 11.10 10*3/?L. The reference range was not used to interpret this result as normal/abnormal . RBC (test code = See_Comment [Automated 641-8) message] The sy stem which generated this [...] RDW-SD (test code = 40.8 fL 39-49.9 43276-0) RDW-CV (test code = 11.9 % 12-15.5 L 788-0) PLT (test code = See_Comment [Automated 777-3) message] The sy stem which generated this result transmitted reference range : 166 - 358 10*3/ ?L. The reference r dejuan was not used to interpret this result as normal/abnormal . MPV (test code = 12.2 fL 9.5-12.9 09386-7) NRBC/100 WBC (test See_Comment [Automat ed code = 5270085364) message] The system which generated this result transmitted reference range : 0.0 - 10.0 /100 WBCs. The refer ence range was not u sed to interpret th is result as normal/abnormal . NRBC x10^3 (test code <0.01 See_Comment [Auto mated = 1603250194) message] The s ystem which generated this result transmitted reference range : 10*3/?L. The reference range was not used to interpret this result as normal/abnormal . GRAN MAT (NEUT) % 73.1 % (test code = 770-8) IMM GRAN % (test code 0.40 % = 3496598003) LYMPH % (test code = 20.3 % 736-9) MONO % (test code = 3.7 % 5905-5) EOS % (test code = 2.1 % 713-8) BASO % (test code = 0.4 % 706-2) GRAN MAT x10^3(ANC) 8.18 10*3/uL 1.88-7.09 H (test code = 5832832004) IMM GRAN x10^3 (test 0.05 10*3/uL 0-0.06 code = 2550836687) LYMPH x10^3 (test code 2.28 10*3/uL 1.32-3.29 = 731-0) MONO x10^3 (test code 0.42 10*3/uL 0.33-0.92 = 742-7) EOS x10^3 (test code = 0.23 10*3/uL 0.03-0.39 711-2) BASO x10^3 (test code 0.05 10*3/uL 0.01-0.07 = 704-7) Lab Interpretation Abnormal (test code = 35600-7) [facility] with [id number] 08:09:00 Test Item Value Reference Range Interpretation [...] RDW-SD (test code = 40.8 fL 39-49.9 44399-1) RDW-CV (test code = 11.9 % 12-15.5 L 788-0) PLT (test code = See_Comment [Automated 777-3) message] The sy stem which generated this result transmitted reference range : 166 - 358 10*3/ ?L. The reference r dejuan was not used to interpret this result as normal/abnormal . MPV (test code = 12.2 fL 9.5-12.9 57131-2) NRBC/100 WBC (test See_Comment [Automat ed code = 5975800073) message] The system which generated this result transmitted reference range : 0.0 - 10.0 /100 WBCs. The refer ence range was not u sed to interpret th is result as normal/abnormal . NRBC x10^3 (test code <0.01 See_Comment [Auto mated = 6269687888) message] The s ystem which generated this result transmitted reference range : 10*3/?L. The reference range was not used to interpret this result as normal/abnormal . GRAN MAT (NEUT) % 73.1 % (test code = 770-8) IMM GRAN % (test code 0.40 % = 6880320420) LYMPH % (test code = 20.3 % 736-9) MONO % (test code = 3.7 % 5905-5) EOS % (test code = 2.1 % 713-8) BASO % (test code = 0.4 % 706-2) GRAN MAT x10^3(ANC) 8.18 10*3/uL 1.88-7.09 H (test code = 9697098309) IMM GRAN x10^3 (test 0.05 10*3/uL 0-0.06 code = 9864142920) LYMPH x10^3 (test code 2.28 10*3/uL 1.32-3.29 = 731-0) MONO x10^3 (test code 0.42 10*3/uL 0.33-0.92 = 742-7) EOS x10^3 (test code = 0.23 10*3/uL 0.03-0.39 711-2) BASO x10^3 (test code 0.05 10*3/uL 0.01-0.07 = 704-7) Lab Interpretation Abnormal (test code = 64878-2) [facility]woodBIOPHYSICAL PROFILE WITH NON-STRESS TEST 2020-04-18 19:57:52NST: 130, moderate variability, +accels, no decelsBPP 10/10Toco: quiescentUnThe [facility]als [facility] CampusPOCT URINALYSIS W/O SPECIFIC [id number] 01:12:00 Test Item Value Reference Range Interpretation [...] code = 3257) na Negative - Negative [facility] KingwoodFETAL NON-STRESS [id number] 01:04:39 Reactive and reassuringToco quiescent Ladonna Leyva MD ?04/16/2020 ?7:04 [facility] [id number] 01:37:59 Reactive and reassuringToco quiescent Ladonna Leyva MD ?04/12/2020 ?7:37 PM General acute hospital NON-STRESS [id number] 22:01:18 Reactive and reassuring [facility] [id number] 22:09:20NST reactive and reassuringUnFaith [facility] Medical Center NON-STRESS [id number] 22:09:20NST reactive and reassuring General acute hospital NON-STRESS [id number] 22:07:24 Reactive and reassuringToco quiescent Ladonna Leyva MD ?03/21/2020 ?4:07 PM [facility]woodCONSENT TO CONTACT FOR VOLUNTARY RESEARCH 2019-12-06 16:09:25 Test Item Value Reference Range Interpretation Comments Consent To Contact For Voluntary Yes Research (test code = 4947) [facility]woodURINALYSIS2020-08-03 23:39:00 Test Item Value Reference Range Interpretation Comments APPEARANCE (test code = Hazy Clear A 7924677332) COLOR (test code = Yellow Yellow 2370863138) PH (test code = 4.8-8.0 9619227021) SP GRAVITY (test code = 1.003-1.030 2958480175) GLU U QUAL (test code = Normal Normal 1357652169) BLOOD (test code = Negative Negative 4848674684) KETONES (test code = 5 mg/dL Negative A [id number]) PROTEIN (test code = Negative Negative 2887-8) UROBILIN (test code = Normal Normal 2742449541) BILIRUBIN (test code = Negative Negative 5837712210) NITRITE (test code = Negative Negative 0850098207) LEUK VAHID (test code = Negative Negative 9740819500) RBC/HPF (test code = See_Comment [Autom ated message] 2470075766) The system [employer] generated this result transmitted ref erence range: 0 - 3 HP F. The reference range was not used to int erpret this result as normal/abnormal . WBC/HPF (test code = See_Comment [Autom ated message] 4751882379) The system [employer] generated this result transmitted ref erence range: 0 - 5 HP F. The reference range was not used to int erpret this result as normal/abnormal . BACTERIA (test code = Moderate Negative A 5717702162) MUCOUS (test code = Slight Negative LPF A 4800384808) SQ EPITH (test code = HPF 8313354762) Lab Interpretation (test Abnormal code = 80991-4) [facility]. METABOLIC PANEL ([id number])2019-11-28 22:30:00 Test Item Value Reference Range Interpretation Comments NA (test code = 133 mmol/L 135-145 L 4856405128) K (test code = 3.8 mmol/L 3.5-5 9315822336) CL (test code = 107 mmol/L 98-108 4492292236) CO2 TOTAL (test code = 23 mmol/L 23-31 7647027394) AGAP (test code = 2-16 8019568386) BUN (test code = 2 mg/dL 7-23 L 6664004915) GLUCOSE (test code = 81 mg/dL 70-110 7096490584) CREATININE (test code = 0.34 mg/dL 0.5-1.04 L 1797150837) TOTAL BILI (test code = 0.6 mg/dL 0.1-1.7 9502768331) CALCIUM (test code = 9.0 mg/dL 8.6-10.6 2439130131) T PROTEIN (test code = 6.2 g/dL 6.3-8.2 L 9907343713) ALBUMIN (test code = 3.2 g/dL 3.5-5 L 9558019665) ALK PHOS (test code = 82 U/L 34-122 3534231070) ALTv (test code = 12 U/L 5-35 1742-6) AST(SGOT) (test code = 17 U/L 13-40 1651878797) eGFR Calculation mL/min/1.73m2 (Non-) (test code = 1513234963) eGFR Calculation mL/min/1.73m2 () (test code = 8730714289) TRISTON (test code = TRISTON) Association of [...] tests). Lab Interpretation Abnormal (test code = 89288-3) [facility] WITH [id number] 21:54:00 Test Item Value Reference Range Interpretation Comments WBC (test code = See_Comment H [Automated 6522-2) message] The sy stem which generated this result transmitted reference range : 4.30 - 11.10 10*3/?L. The reference range was not used to interpret this result as normal/abnormal . RBC (test code = See_Comment [Automated 620-4) message] The sy stem which generated this [...] RDW-SD (test code = 39.8 fL 39-49.9 05527-6) RDW-CV (test code = 12.0 % 12-15.5 788-0) PLT (test code = See_Comment [Automated 777-3) message] The sy stem which generated this result transmitted reference range : 166 - 358 10*3/ ?L. The reference r dejuan was not used to interpret this result as normal/abnormal . MPV (test code = 11.1 fL 9.5-12.9 33035-8) NRBC/100 WBC (test See_Comment [Automat ed code = 9723226400) message] The system which generated this result transmitted reference range : 0.0 - 10.0 /100 WBCs. The refer ence range was not u sed to interpret th is result as normal/abnormal . NRBC x10^3 (test code <0.01 See_Comment [Auto mated = 9822379458) message] The s ystem which generated this result transmitted reference range : 10*3/?L. The reference range was not used to interpret this result as normal/abnormal . GRAN MAT (NEUT) % 78.1 % (test code = 770-8) IMM GRAN % (test code 0.60 % = 0723807452) LYMPH % (test code = 14.5 % 736-9) MONO % (test code = 4.8 % 5905-5) EOS % (test code = 1.7 % 713-8) BASO % (test code = 0.3 % 706-2) GRAN MAT x10^3(ANC) 8.84 10*3/uL 1.88-7.09 H (test code = 0337136013) IMM GRAN x10^3 (test 0.07 10*3/uL 0-0.06 H code = 0036301940) LYMPH x10^3 (test code 1.64 10*3/uL 1.32-3.29 = 731-0) MONO x10^3 (test code 0.54 10*3/uL 0.33-0.92 = 742-7) EOS x10^3 (test code = 0.19 10*3/uL 0.03-0.39 711-2) BASO x10^3 (test code 0.03 10*3/uL 0.01-0.07 = 704-7) Lab Interpretation Abnormal (test code = 66659-1) [facility] URINALYSIS W/O SPECIFIC [id number] 14:11:00 Test Item Value Reference Range Interpretation [...] code = 3257) Neg Negative - Negative [facility] URINALYSIS W/O SPECIFIC [id number] 14:11:00 Test Item Value Reference Range Interpretation [...] code = 3257) Neg Negative - Negative [facility] [id number] 14:10:00 Test Item Value Reference Range Interpretation Comments POCT PREG (test code = 1605) Positive On board controls acceptable with C Yes Line (test code = 3574) POCT PREG LOT # (test code = 3575) POCT PREG TEST DATE (test code = 3576) [facility] [id number] 14:10:00 Test Item Value Reference Range Interpretation Comments POCT PREG (test code = 1605) Positive On board controls acceptable with C Yes Line (test code = 3574) POCT PREG LOT # (test code = 3575) POCT PREG TEST DATE (test code = 3576) [facility]2 [id number] 16:26:00 Test Item Value Reference Range Interpretation Comments HIV-1 ANTIGEN WITH HIV 1\\T\\2 Nonreactive Nonreactive ANTIBODY (2) (BEAKER) (test code = 2586) BASIC METABOLIC [id number] 06:30:00 Test Item Value Reference Range Interpretation [...] m DATA TO CALCULA TE ESTIMATED GFR. [id number] 06:19:00 Test Item Value Reference Range Interpretation Comments PHOSPHORUS (BEAKER) (test code = 1.9 mg/dL 2.3-4.7 L 604) [id number] 06:19:00 Test Item Value Reference Range Interpretation Comments MAGNESIUM (BEAKER) (test code = 1.8 mg/dL 1.6-2.6 627) HEPATIC FUNCTION [id number] 06:19:00 Test Item Value Reference Range Interpretation [...] 6-55 347) CBC W/PLT COUNT & AUTO [id number] 06:11:00 Test Item Value Reference Range Interpretation [...] (BEAKER) (test code = 2801) BASIC METABOLIC [id number] 10:11:00 Test Item Value Reference Range Interpretation [...] m DATA TO CALCULA TE ESTIMATED GFR. [id number] 09:56:00 Test Item Value Reference Range Interpretation Comments PHOSPHORUS (BEAKER) (test code = 1.6 mg/dL 2.3-4.7 L 604) [id number] 09:56:00 Test Item Value Reference Range Interpretation Comments MAGNESIUM (BEAKER) (test code = 2.0 mg/dL 1.6-2.6 627) HEPATIC FUNCTION [id number] 09:56:00 Test Item Value Reference Range Interpretation [...] 6-55 347) CBC W/PLT COUNT & AUTO [id number] 09:53:00 Test Item Value Reference Range Interpretation [...] % 0-1 PERCENT (BEAKER) (test code = 2804)"
[2021-09-27] MEDS ORDERED: MORPHINE 4 MG/ML SYR ONE ×2 (22:17→23:53)
[2021-09-27 22:29] LABS: Absolute Lymphocytes (CBC) 1.2 K/uL (0.7-4.9); Hematocrit 37.9 % (36.0-45.0); Lymphocytes % 9.5 % (15.3-44.8); MPV 8.9 fL (7.6-11.3); RBC Red Blood Cell Count 4.05 M/uL (3.86-4.86)
[2021-09-27 23:05] LABS: Potassium 3.8 mmol/L (3.5-5.1)
[2021-09-27] MEDS ORDERED: ONDANSETRON 4 MG/2 ML VIAL ONE (23:53)
--- NOTE | 2021-09-28 00:53 | ER ---
Nurse's Notes [facility] Name: Elle Man Age: 31 yrs Sex: Female : 1990 Arrival Date: 09/27/2021 Time: 20:25 Bed 14 Private MD: Diagnosis: Miscarriage;Vaginal Bleeding Presentation: 09/27 21:34 Chief complaint: Patient states: she is one month and is having severe bb abdominal pain with heavy vaginal bleeding and clots thinks she is having a miscarriage. Coronavirus screen: At this time, the client does not indicate any symptoms associated with coronavirus-19. Ebola Screen: No symptoms or risks identified at this time. Initial Sepsis Screen: Does the patient meet any 2 criteria? No. Patient's initial sepsis screen is negative. Does the patient have a suspected source of infection? No. Patient's initial sepsis screen is negative. Risk Assessment: Do you want to hurt yourself or someone else? Patient reports no desire to harm self or others. Onset of symptoms was September 27, 2021. 21:34 Method Of Arrival: Wheelchair bb 21:34 Acuity: LAYTON 3 bb Triage Assessment: 21:40 General: Appears in no apparent distress. comfortable, Behavior is cooperative, crying. vc1 Pain: Complains of pain in right upper quadrant Pain does not radiate. Neuro: Level of Consciousness is awake, alert, obeys commands, Oriented to person, place, time, situation, Appropriate for age. Cardiovascular: No deficits noted. Respiratory: No deficits noted. GI: No deficits noted. : Urine is blood tinged, Reports vaginal bleeding that is bright red, with clots, heavy flow. 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 - Social history:: Smoking status: Patient denies any tobacco usage or history of. Screenin:40 Abuse screen: Denies threats or abuse. Nutritional screening: No deficits noted. vc1 Tuberculosis screening: No symptoms or risk factors identified. Fall Risk None identified. Assessment: 23:00 Reassessment: Patient and/or family updated on plan of care and expected duration. Pain vc1 level reassessed. Patient is alert, oriented x 3, equal unlabored respirations, skin warm/dry/pink. 09/28 00:00 Reassessment: Patient and/or family updated on plan of care and expected duration. Pain vc1 level reassessed. Patient is alert, oriented x 3, equal unlabored respirations, skin warm/dry/pink. 01:00 Reassessment: Patient and/or family updated on plan of care and expected duration. Pain vc1 level reassessed. Patient is alert, oriented x 3, equal unlabored respirations, skin warm/dry/pink. Vital Signs: 09/27 21:34 BP 101 / 76; Pulse 66; Resp 18 S; Temp 98.5(O); Pulse Ox 99% on R/A; Weight 99.79 kg bb (R); Height 5 ft. 11 in. (180.34 cm) (R); Pain 10/10; 23:00 BP 105 / 74; Pulse 68; Resp 18; Pulse Ox 99% ; vc1 09/28 01:00 BP 104 / 72; Pulse 62; Resp 17; Pulse Ox 100% ; vc1 09/27 21:34 Body Mass Index 30.68 (99.79 kg, 180.34 cm) ED Course: 09/27 20:25 Patient arrived in ED. ja2 20:33 Luis Yang DO is Attending Physician. ms3 21:35 Triage completed. bb 21:35 Arm band placed on Patient placed in an exam room, on a stretcher. Family accompanied bb patient. 21:40 Patient has correct armband on for positive identification. Bed in low position. Call vc1 light in reach. Pulse ox on. NIBP on. 22:20 Rozina Barnett, RN is Primary Nurse. vc1 22:45 1st Trimest Single 1st Fetus In Process Unspecified. EDMS 09/28 01:45 Assist provider with pelvic exam: Set up pelvic tray. Performed by Luis Yang DO vc1 Patient tolerated well. IV discontinued, intact, bleeding controlled, No redness/swelling at site. Pressure dressing applied. Administered Medications: 09/27 22:20 Drug: morphine 4 mg Route: IVP; Infused Over: 2 mins; Site: right antecubital; vc1 23:00 Follow up: Response: No adverse reaction; Marked relief of symptoms; Pain is decreased vc1 23:52 Drug: Zofran (Ondansetron) 4 mg Route: IVP; Site: left hand; 3 09/28 00:00 Follow up: Response: No adverse reaction; Marked relief of symptoms; Pain is decreased vc1 09/27 23:53 Drug: morphine 4 mg Route: IVP; Infused Over: 4 mins; Site: left hand; 3 09/28 00:00 Follow up: Response: No adverse reaction; Marked relief of symptoms vc1 Medication: 01:48 VIS not applicable for this client. vc1 Outcome: 00:53 Discharge ordered by . ms3 01:47 Discharged to home ambulatory, with significant other. vc1 01:47 Condition: good 01:47 Discharge instructions given to patient, Instructed on discharge instructions, follow up and referral plans. medication usage, Demonstrated understanding of instructions, follow-up care, medications, Prescriptions given X 1. 01:50 Patient left the ED. vc1 Signatures: Dispatcher [employer] EDMS Lisa Escoto RN RN bb Inge Kumari RN RN lg3 Luis Yang DO DO ms3 Jeane Romano Vanessa, RN RN vc1
--- NOTE | 2021-09-28 00:54 | EDPHYS ---
Physician Documentation [facility] [place], [place] Name: Elle Man Age: 31 yrs Sex: Female : 1990 Arrival Date: 09/27/2021 Time: 20:25 Bed 14 Private MD: ED Physician Luis Yang HPI: 09/27 23:52 This 31 yrs old Female presents to ER via Wheelchair with complaints of ms3 Vaginal Bleeding, Abdominal Cramping, Other. 23:52 The patient presents with vaginal bleeding that is heavy, with clots. Onset: The ms3 symptoms/episode began/occurred acutely, 1 hour(s) ago. Modifying factors: The symptoms are alleviated by nothing, the symptoms are aggravated by nothing. Associated signs and symptoms: Pertinent positives: vaginal bleeding. Severity of symptoms: At their worst the symptoms were severe, in the emergency department the symptoms are unchanged. The patient is sexually active. 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 - Social history:: Smoking status: Patient denies any tobacco usage or history of. ROS: 23:52 Positive for vaginal bleeding. ms3 23:52 Constitutional: Negative for fever, and chills. Neck: Negative for injury, pain, and swelling, Cardiovascular: Negative for chest pain, and palpitations. Respiratory: Negative for shortness of breath, cough, wheezing, and pleuritic chest pain. 23:52 MS/Extremity: Negative for injury and deformity, Skin: Negative for injury, rash, and discoloration, Psych: Negative for depression, anxiety, suicide ideation, homicidal ideation, and hallucinations. 23:52 Abdomen/GI: Positive for abdominal pain. Exam: 23:52 Constitutional: This is a well developed, well nourished patient who is awake, alert, ms3 and in no acute distress. Head/Face: Normocephalic, atraumatic. Neck: Trachea midline, no cervical lymphadenopathy. Supple, full range of motion without nuchal rigidity, or vertebral point tenderness. No Meningismus. Chest/axilla: Normal chest wall appearance and motion. Nontender with no deformity. Cardiovascular: Regular rate and rhythm with a normal S1 and S2. No gallops, murmurs, or rubs. Normal PMI, no JVD. No pulse deficits. Respiratory: Lungs have equal breath sounds bilaterally, clear to auscultation and percussion. No rales, rhonchi or wheezes noted. No increased work of breathing, no retractions or nasal flaring. 23:52 Skin: Warm, dry with normal turgor. Normal color with no rashes, no lesions, and no evidence of cellulitis. Psych: Awake, alert, with orientation to person, place and time. Behavior, mood, and affect are within normal limits. 23:52 Abdomen/GI: Inspection: abdomen appears normal, Bowel sounds: normal, Palpation: mild abdominal tenderness, in the suprapubic area. 23:52 : Pelvic Exam: External exam: is normal, Speculum exam: moderate bleeding, Vannessa Vega. Vital Signs: 21:34 BP 101 / 76; Pulse 66; Resp 18 S; Temp 98.5(O); Pulse Ox 99% on R/A; Weight 99.79 kg bb (R); Height 5 ft. 11 in. (180.34 cm) (R); Pain 10/10; 23:00 BP 105 / 74; Pulse 68; Resp 18; Pulse Ox 99% ; vc1 09/28 01:00 BP 104 / 72; Pulse 62; Resp 17; Pulse Ox 100% ; vc1 09/27 21:34 Body Mass Index 30.68 (99.79 kg, 180.34 cm) bb MDM: 09/27 21:56 Patient medically screened. ms3 23:52 Differential diagnosis: dysfunctional uterine bleeding, threatened Ab, inevitable Ab, ms3 complete Ab, retained Ab, nonspecific abdominal pain. Data reviewed: vital signs, nurses notes, lab test result(s), radiologic studies, ultrasound. Counseling: I had a detailed discussion with the patient and/or guardian regarding: the historical points, exam findings, and any diagnostic results supporting the discharge/admit diagnosis, lab results, radiology results, the need for outpatient follow up, to return to the emergency department if symptoms worsen or persist or if there are any questions or concerns that arise at home. ED course: Discussed labs, US, physical exam findings with patient. Patient to follow-up with her OB in 2 to 3 days. Patient understands and agrees with plan. All questions were answered. Return precautions discussed include worsening symptoms, or any other concerns. On reevaluation patient is alert and oriented x4, in no apparent distress, nontoxic-appearing, speaking full sentences, ambulatory in emergency department.. 09/27 21:02 Order name: Abo/rh Typing; Complete Time: 23:14 ms3 09/27 21:02 Order name: Basic Metabolic Panel; Complete Time: 23:14 ms3 09/27 21:02 Order name: CBC with Diff; Complete Time: 23:14 ms3 09/27 21:02 Order name: Quantitative Hcg; Complete Time: 23:14 ms3 09/27 21:03 Order name: 1st Trimest Single 1st Fetus ms3 09/28 01:22 Order name: Urine Dipstick-Ancillary EDIN 09/27 21:02 Order name: IV Saline Lock; Complete Time: 22:21 ms3 09/27 21:02 Order name: Labs collected and sent; Complete Time: 22:21 ms3 09/27 21:02 Order name: NPO; Complete Time: 22:42 ms3 09/27 21:02 Order name: Urine Dipstick-Ancillary (obtain specimen); Complete Time: 01:50 ms3 09/27 21:02 Order name: Urine Test (obtain specimen); Complete Time: 01:50 ms3 Administered Medications: 22:20 Drug: morphine 4 mg Route: IVP; Infused Over: 2 mins; Site: right antecubital; vc1 23:00 Follow up: Response: No adverse reaction; Marked relief of symptoms; Pain is decreased vc1 23:52 Drug: Zofran (Ondansetron) 4 mg Route: IVP; Site: left hand; 3 09/28 00:00 Follow up: Response: No adverse reaction; Marked relief of symptoms; Pain is decreased vc1 09/27 23:53 Drug: morphine 4 mg Route: IVP; Infused Over: 4 mins; Site: left hand; 3 09/28 00:00 Follow up: Response: No adverse reaction; Marked relief of symptoms vc1 Disposition Summary: 09/28/21 00:53 Discharge Ordered Location: Home ms3 Condition: Stable ms3 Diagnosis - Miscarriage ms3 - Vaginal Bleeding ms3 Followup: ms3 - With: Private Physician - When: 2 - 3 days - Reason: Re-evaluation by your physician Discharge Instructions: - Discharge Summary Sheet ms3 Forms: - Medication Reconciliation Form ms3 - Thank You Letter ms3 - Antibiotic Education ms3 - Prescription Opioid Use ms3 Prescriptions: - Tylenol-Codeine #3 300 mg-30 mg Oral - take 1 tablet by ORAL route every 6-8 hours; 12 tablet; Refills: 0, Product ms3 Selection Permitted Signatures: Dispatcher [employer] Lisa Wright RN RN Inge Aviles RN RN lg3 Luis Yang, DO ms3 Rozina Barnett RN RN vc1
[2021-09-28 01:22] LABS: Urine Blood 3+ (Negative); Urine Glucose Negative (Negative); Urine Protein 2+ (Negative); Urine Specific Gravity >=1.030 (1.005-1.030)
[2021-09-28 02:09] VITALS: TEMP 98.5
[2021-09-28 02:11] VITALS: BP 104/72; O2SAT 100
--- NOTE | 2021-09-30 10:25 | RAD REPORT ---
EXAM DESCRIPTION: US - 1St Trimest Single 1St Fetus - 09/27/2021 10:43 pm CLINICAL HISTORY: ABD PAIN. COMPARISON: None. TECHNIQUE: Real-time grayscale and color Doppler images of the pelvis were obtained utilizing transa bdominal and transvaginal technique. FINDINGS: Uterus: 4.9 x 6.5 x 10.9 cm. Endometrium measures 1.1 cm in thickness. No intrauterine p regnancy is visualized. Endocervical cyst. Right ovary: 3 x 1.8 x 2.4 cm (volume 6.9 mL). Normal arterial flow. No concerning lesions. A funct ional cyst in the right ovary measures 1.6 cm, a normal finding. Left ovary: 2.2 x 1.2 x 2 cm (volume 2.6 mL). Normal arterial flow. No concerning lesions. Cul-de-sac: No free fluid identified. IMPRESSION: 1. No intrauterine or concerning adnexal lesion is visualized. 2. Normal appearance of the ovaries with no evidence of torsion. Electronically signed by: Alondra Mckenzie MD 09/27/2021 11:03 PM CDT Due to temporary technical issues with the PACS/Fluency reporting system, reports are being signed by the in house radiologist without review as a courtesy to ensure prompt reporting. The interpreting r adiologist is fully responsible for the content of the report.
== END 2021-09-28 01:50 | disposition home or self-care (01) ==
LOC: ER 20:24
DX: O03.9 Complete or unspecified spontaneous abortion without complication (principal)
CPT/HCPCS: 85025; 80048; 36415; 86900; 86901; 84702; 81003; 76801; 99284; J2405

== ENCOUNTER 2021-10-19 09:11 | Emergency (ER) | payer OTHER ==
--- OUTSIDE RECORDS SUMMARY | 2021-10-19 09:24 | XMS REPORT | Continuity of Care Document ---
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 mg capsule 00:00: 00:00 mouth once [place] 00 :00 daily as Medical needed for Branch Constipati on. ferrous 2019-04- No [id number] 325mg Take 1 U nivers sulfate 325 2-30 03-25 tablet by it y of mg (65 mg 00:00: 00:00 [place] iron[place] 00 :00 (two) Medical tablet times Branch daily. ibuprofen 2019-04- No [id number] 600mg Take 1 [facility] 600 mg 2-30 [...] 25/iron 1-25 mouth. ity of fum/folic/d 21:30: [place] [id number] Medical (-1 Branch ORAL) 2019-04 Yes Take by Unive rs 25/iron 1-25 mouth. ity of fum/folic/d 21:30: [place] [address] Medical (-1 Branch ORAL) 2020 Yes Take by Unive rs 25/iron 1-25 mouth. ity of fum/folic/d 21:30: [place] [address] Medical (-1 Branch ORAL) 2020 Yes Take by Unive rs 25/iron 1-25 mouth. ity of fum/folic/d 21:30: [place] [address] Medical (-1 Branch ORAL) 2020 Yes Take by Unive rs 25/iron 1-25 mouth. ity of fum/folic/d 21:30: [place] [address] Medical (-1 Branch ORAL) 2020- Yes Take by Unive rs 25/iron 1-25 mouth. ity of fum/folic/d 21:30: [place] [address] Medical (-1 Branch ORAL) 2020- Yes Take by Unive rs 25/iron 1-25 mouth. ity of fum/folic/d 21:30: [place] [address] Medical (-1 Branch ORAL) 2020 Yes Take by Unive rs 25/iron 1-25 mouth. ity of fum/folic/d 21:30: [place] [address] Medical (-1 Branch ORAL) 2020 Yes Take by Unive rs 25/iron 1-25 mouth. ity of fum/folic/d 21:30: [place] [address] Medical (-1 Branch ORAL) 2020 Yes Take by Unive rs 25/iron 1-25 mouth. ity of fum/folic/d 21:30: [place] [address] Medical (-1 Branch ORAL) 2020 Yes Take by Unive rs 25/iron 1-25 mouth. ity of fum/folic/d 21:30: [place] [address] Medical (-1 Branch ORAL) PNV 2019-04 Yes [id number] Take 1 Univers 102-iron-fo 0-20 TAB-CAP/M2 it y of late-dha 00:00: by mouth [place] (VITAFOL FE 00 daily. Medica l PLUS) 90 mg Branch iron- 1 mg-200 mg Cap PNV 2020 Yes [id number] Take 1 Univers 102-iron-fo 0-20 TAB-CAP/M2 it y of late-dha 00:00: by mouth [place] (VITAFOL FE 00 daily. Medica l PLUS) 90 mg Branch iron- 1 mg-200 mg Cap PNV 2019-04 Yes [id number] Take 1 Univers 102-iron-fo 0-20 TAB-CAP/M2 it y of late-dha 00:00: by mouth [place] (VITAFOL FE 00 daily. Medica l PLUS) 90 mg Branch iron- 1 mg-200 mg Cap PNV 2020 Yes [id number] Take 1 Univers 102-iron-fo 0-20 TAB-CAP/M2 it y of late-dha 00:00: by mouth [place] (VITAFOL FE 00 daily. Medica l PLUS) 90 mg Branch iron- 1 mg-200 mg Cap PNV 2020 Yes [id number] Take 1 Univers 102-iron-fo 0-20 TAB-CAP/M2 it y of late-dha 00:00: by mouth [place] (VITAFOL FE 00 daily. Medica l PLUS) 90 mg Branch iron- 1 mg-200 mg Cap PNV 2020 Yes [id number] Take 1 Univers 102-iron-fo 0-20 TAB-CAP/M2 it y of late-dha 00:00: by mouth [place] (VITAFOL FE 00 daily. Medica l PLUS) 90 mg Branch iron- 1 mg-200 mg Cap PNV 2019-04 Yes [id number] Take 1 Univers 102-iron-fo 0-20 TAB-CAP/M2 it y of late-dha 00:00: by mouth [place] (VITAFOL FE 00 daily. Medica l PLUS) 90 mg Branch iron- 1 mg-200 mg Cap PNV 2019-04 2020- No [id number] Take 1 Univer s 102-iron-fo 0-20 11-25 TAB-CAP/M2 i ty of late-dha 00:00: 00:00 [place] (VITAFOL FE 00 :00 daily. Medica l PLUS) 90 mg Branch iron- 1 mg-200 mg Cap PNV 2019-04 2020- No [id number] Take 1 Univer s 102-iron-fo 0-20 11-25 TAB-CAP/M2 i ty of late-dha 00:00: 00:00 [place] (VITAFOL FE 00 :00 daily. Medica l PLUS) 90 mg Branch iron- 1 mg-200 mg Cap PNV 2019-04 2020- No [id number] Take 1 Univer s 102-iron-fo 0-20 11-25 TAB-CAP/M2 i ty of late-dha 00:00: 00:00 [place] (VITAFOL FE 00 :00 daily. Medica l PLUS) 90 mg Branch iron- 1 mg-200 mg Cap metoclopram 2020-0 Yes [id number] 10mg Take 1 Univers levi HCl 10 8-11 tablet by ity of mg tablet 00:00: mouth [place] 00 every 6 Medical (six) Branch hours as needed for Nausea and Vomiting (N/V). metoclopram 2020-0 Yes [id number] 10mg Take 1 [facility] levi HCl 10 8-11 tablet by ity of mg tablet 00:00: mouth [place] 00 every 6 Medical (six) Branch hours as needed for Nausea and Vomiting (N/V). metoclopram 2020-0 Yes [id number] 10mg Take 1 [facility] levi HCl 10 8-11 tablet by ity of mg tablet 00:00: mouth [place] 00 every 6 Medical (six) Branch hours as needed for Nausea and Vomiting (N/V). metoclopram 2020-0 Yes [id number] 10mg Take 1 [facility] levi HCl 10 8-11 tablet by ity of mg tablet 00:00: mouth [place] 00 every 6 Medical (six) Branch hours as needed for Nausea and Vomiting (N/V). metoclopram 2020-0 Yes [id number] 10mg Take 1 [facility] levi HCl 10 8-11 tablet by ity of mg tablet 00:00: mouth [place] 00 every 6 Medical (six) Branch hours as needed for Nausea and Vomiting (N/V). metoclopram 2020-0 Yes [id number] 10mg Take 1 [facility] levi HCl 10 8-11 tablet by ity of mg tablet 00:00: mouth [place] 00 every 6 Medical (six) Branch hours as needed for Nausea and Vomiting (N/V). metoclopram 2020-0 2020- No [id number] 10mg Take 1 Univers levi HCl 10 [...] Branch 11/28/19 at 1800, TUSHAR NaCl 0.9% 2019-0 2020- No 1000mL at 999 Uni vers (NS) bolus 11-27 08-04 mL/hr, ity of infusion 21:15: 00:22 1,000 mL, [place] 1,000 mL 00 :00 IV Medical Infusion, Branch ONCE, 1 dose, 11/28/19 at 1615, TUSHAR doxylamine- 2020-0 Yes [id number] Take 2 Univers pyridoxine, 8-03 tabs by ity o f vit B6, 00:00: mouth [place]. [place] (DICLEGIS[place] 00 If nausea Medi dee 10-10 mg not Branch per tablet controlled may increase to max of 4 tabs daily-1 tab in am, 1 tab mid afternoon and 2 tabs qhs doxylamine- 2020-0 Yes [id number] Take 2 [facility] pyridoxine, 8-03 tabs by ity o f vit B6, 00:00: mouth [place]. [place] (DICLEGIS[place] 00 If nausea Medi dee 10-10 mg not Branch per tablet controlled may increase to max of 4 tabs daily-1 tab in am, 1 tab mid afternoon and 2 tabs qhs doxylamine- 2020-0 Yes [id number] Take 2 [facility] pyridoxine, 8-03 tabs by ity o f vit B6, 00:00: mouth [place]. [place] (DICLE[place] 00 If nausea Medi dee 10-10 mg not Branch per tablet controlled may increase to max of 4 tabs daily-1 tab in am, 1 tab mid afternoon and 2 tabs qhs doxylamine- 2020-0 Yes [id number] Take 2 [facility] pyridoxine, 8-03 tabs by ity o f vit B6, 00:00: mouth [place]. [place] (DICLEGIS[place] 00 If nausea Medi dee 10-10 mg not Branch per tablet controlled may increase to max of 4 tabs daily-1 tab in am, 1 tab mid afternoon and 2 tabs qhs doxylamine- 2020-0 Yes [id number] Take 2 Univers pyridoxine, 8-03 tabs by ity o f vit B6, 00:00: mouth [place]. [place] (DICLE[place] 00 If nausea Medi dee 10-10 mg not Branch per tablet controlled may increase to max of 4 tabs daily-1 tab in am, 1 tab mid afternoon and 2 tabs qhs doxylamine- 2020-0 Yes [id number] Take 2 Univers pyridoxine, 8-03 tabs by ity o f vit B6, 00:00: mouth [place]. [place] (DICLE[place] 00 If nausea Medi dee 10-10 mg not Branch per tablet controlled may increase to max of 4 tabs daily-1 tab in am, 1 tab mid afternoon and 2 tabs qhs doxylamine- 2020-0 Yes [id number] Take 2 Univers pyridoxine, 8-03 tabs by ity o f vit B6, 00:00: mouth [place]. [place] (D[place]LE[place] 00 If nausea Medi dee 10-10 mg not Branch per tablet controlled may increase to max of 4 tabs daily-1 tab in am, 1 tab mid afternoon and 2 tabs qhs doxylamine- 2020-0 Yes [id number] Take 2 Univers pyridoxine, 8-03 tabs by ity o f vit B6, 00:00: mouth [place]. [place] (DICLEGIS[place] 00 If nausea Medi dee 10-10 mg not Branch per tablet controlled may increase to max of 4 tabs daily-1 tab in am, 1 tab mid afternoon and 2 tabs qhs doxylamine- 2019-0 2020- No [id number] Take 2 [facility] pyridoxine, 8-03 10-20 tabs by ity of vit B6, 00:00: 00:00 mouth qhs. [place] (DICLEGIS) 00 :00 If nausea Medi dee 10-10 mg not Branch per tablet controlled may increase to max of 4 tabs daily-1 tab in am, 1 tab mid afternoon and 2 tabs qhs ampicillin 2019-0 2020- No [id number] 500mg Take 1 [facility] 500 mg 7-13 07-24 capsule by ity of capsule 00:00: 04:59 mouth 4 [place] 00 :00 (four) Medical times Branch daily for 10 days. ampicillin 2019-0 2020- No [id number] 500mg Take 1 [facility] 500 mg 7-13 07-24 capsule by ity of capsule 00:00: 04:59 mouth 4 [place] 00 :00 (four) Medical times Branch daily for 10 days. proMETHazin 2020-0 Yes [id number] 25mg Take 1 [facility] e 25 mg 7-09 tablet by ity of tablet 00:00: mouth [place] 00 every 6 Medical (six) Branch hours as needed for Nausea and Vomiting (N/V). proMETHazin 2020-0 Yes [id number] 25mg Take 1 Univers e 25 mg 7-09 tablet by ity of tablet 00:00: mouth [place] 00 every 6 Medical (six) Branch hours as needed for Nausea and Vomiting (N/V). proMETHazin 2020-0 Yes [id number] 25mg Take 1 Univers e 25 mg 7-09 tablet by ity of tablet 00:00: mouth [place] 00 every 6 Medical (six) Branch hours as needed for Nausea and Vomiting (N/V). proMETHazin 2020-0 Yes [id number] 25mg Take 1 Univers e 25 mg 7-09 tablet by ity of tablet 00:00: mouth [place] 00 every 6 Medical (six) Branch hours as needed for Nausea and Vomiting (N/V). proMETHazin 2020-0 Yes [id number] 25mg Take 1 Univers e 25 mg 7-09 tablet by ity of tablet 00:00: mouth [place] 00 every 6 Medical (six) Branch hours as needed for Nausea and Vomiting (N/V). proMETHazin 2020-0 Yes [id number] 25mg Take 1 Univers e 25 mg 7-09 tablet by ity of tablet 00:00: mouth [place] 00 every 6 Medical (six) Branch hours as needed for Nausea and Vomiting (N/V). proMETHazin 2020-0 Yes [id number] 25mg Take 1 Univers e 25 mg 7-09 tablet by ity of tablet 00:00: mouth [place] 00 every 6 Medical (six) Branch hours as needed for Nausea and Vomiting (N/V). proMETHazin 2020-0 Yes [id number] 25mg Take 1 Univers e 25 mg 7-09 tablet by ity of tablet 00:00: mouth [place] 00 every 6 Medical (six) Branch hours as needed for Nausea and Vomiting (N/V). proMETHazin 2020-0 Yes [id number] 25mg Take 1 Univers e 25 mg 7-09 tablet by ity of tablet 00:00: mouth [place] 00 every 6 Medical (six) Branch hours as needed for Nausea and Vomiting (N/V). proMETHazin 2020-0 Yes [id number] 25mg Take 1 Univers e 25 mg 7-09 tablet by ity of tablet 00:00: mouth [place] 00 every 6 Medical (six) Branch hours as needed for Nausea and Vomiting (N/V). proMETHazin 2020-0 Yes [id number] 25mg Take 1 Univers e 25 mg 7-09 tablet by ity of tablet 00:00: mouth [place] 00 every 6 Medical (six) Branch hours as needed for Nausea and Vomiting (N/V). proMETHazin 2020-0 Yes [id number] 25mg Take 1 Univers e 25 mg 7-09 tablet by ity of tablet 00:00: mouth [place] 00 every 6 Medical (six) Branch hours as needed for Nausea and Vomiting (N/V). proMETHazin 2020-0 Yes [id number] 25mg Take 1 Univers e 25 mg 7-09 tablet by ity of tablet 00:00: mouth [place] 00 every 6 Medical (six) Branch hours as needed for Nausea and Vomiting (N/V). proMETHazin 2020-0 Yes [id number] 25mg Take 1 Univers e 25 mg 7-09 tablet by ity of tablet 00:00: mouth [place] 00 every 6 Medical (six) Branch hours as needed for Nausea and Vomiting (N/V). proMETHazin 2020-0 Yes [id number] 25mg Take 1 Univers e 25 mg 7-09 tablet by ity of tablet 00:00: mouth [place] 00 every 6 Medical (six) Branch hours as needed for Nausea and Vomiting (N/V). proMETHazin 2020-0 Yes [id number] 25mg Take 1 Univers e 25 mg 7-09 tablet by ity of tablet 00:00: mouth [place] 00 every 6 Medical (six) Branch hours as needed for Nausea and Vomiting (N/V). proMETHazin 2020-0 Yes [id number] 25mg Take 1 Univers e 25 mg 7-09 tablet by ity of tablet 00:00: mouth [place] 00 every 6 Medical (six) Branch hours as needed for Nausea and Vomiting (N/V). proMETHazin 2020-0 2020- No [id number] 25mg Take 1 Univers e 25 mg 7-09 10-20 tablet by ity of tablet 00:00: 00:00 mouth [place] 00 :00 every 6 Medical (six) Branch hours as needed for Nausea and Vomiting (N/V). Acyclovir Acyclovir 0 Yes Hossein 1 tablet Common 7-25 [facility] 00:00: - [facility] 00 [facility] butalbital- 0 Yes 1{tbl} Take 1 Un [...] for Pain (scale 7-10) (Headache) . butalbital- 2020- No 1{tbl} Take 1 U nivers [...] ity of capsule 00:00: 00:00 mouth 3 00 :00 (three) Medical times Branch daily. [...] 150mg 1 mL by U nivers ESTERone 11-12 10-20 Intramuscu ity of (DEPO-PROVE [...] No known No Univers medications ity of [facility] Immunizations Ordered Filled Immunization Date Status Comments [facility] e Immunization Name Name TDAP 2020-02-14 Completed University of 00:00:00 [facility] Influenza Virus 2020-02-14 Completed Universit y of Vaccine Quad .5 mL 00:00:00 [place] [facility] 6+ MO Branch TDAP 2020-02-14 Completed University of 00:00:00 [facility] Influenza Virus 2020-02-14 Completed Universit y of Vaccine Quad .5 mL 00:00:00 [place] [facility] 6+ MO Branch TDAP 2020-02-14 Completed University of 00:00:00 [facility] Influenza Virus 2020-02-14 Completed Universit y of Vaccine Quad .5 mL 00:00:00 [place] [facility] 6+ MO Branch TDAP 2020-02-14 Completed University of 00:00:00 [facility] Influenza Virus 2020-02-14 Completed Universit y of Vaccine Quad .5 mL 00:00:00 [place] [facility] 6+ MO Branch TDAP 2020-02-14 Completed University of 00:00:00 [facility] Influenza Virus 2020-02-14 Completed Universit y of Vaccine Quad .5 mL 00:00:00 [place] [facility] 6+ MO Branch TDAP 2020-02-14 Completed University of 00:00:00 [facility] Influenza Virus 2020-02-14 Completed Universit y of Vaccine Quad .5 mL 00:00:00 [place] [facility] 6+ MO Branch TDAP 2020-02-14 Completed University of 00:00:00 [facility] Influenza Virus 2020-02-14 Completed Universit y of Vaccine Quad .5 mL 00:00:00 [place] [facility] 6+ MO Branch TDAP 2020-02-14 Completed University of 00:00:00 [facility] Influenza Virus 2020-02-14 Completed Universit y of Vaccine Quad .5 mL 00:00:00 [place] [facility] 6+ MO Branch TDAP 2020-02-14 Completed University of 00:00:00 [facility] Influenza Virus 2020-02-14 Completed Universit y of Vaccine Quad .5 mL 00:00:00 [place] [facility] 6+ MO Branch TDAP 2020-02-14 Completed University of 00:00:00 [facility] Influenza Virus 2020-02-14 Completed Universit y of Vaccine Quad .5 mL 00:00:00 [place] [facility] IM 6+ MO Branch TDAP 2020-02-14 Completed University of 00:00:00 [place] [facility] Influenza Virus 2020-02-14 Completed Universit y of Vaccine Quad .5 mL 00:00:00 [place] [facility] IM 6+ MO Branch TDAP 2020-02-14 Completed University of 00:00:00 [facility] Influenza Virus 2020-02-14 Completed Universit y of Vaccine Quad .5 mL 00:00:00 [place] [facility] IM 6+ MO Branch TDAP 2020-02-14 Completed University of 00:00:00 [place] [facility] Influenza Virus 2020-02-14 Completed Universit y of Vaccine Quad .5 mL 00:00:00 [place] [facility] 6+ MO Branch TDAP 2020-02-14 Completed University of 00:00:00 [facility] Influenza Virus 2020-02-14 Completed Universit y of Vaccine Quad .5 mL 00:00:00 [place] [facility] 6+ MO Branch TDAP 2020-02-14 Completed University of 00:00:00 [facility] Influenza Virus 2020-02-14 Completed Universit y of Vaccine Quad .5 mL 00:00:00 [place] [facility] 6+ MO Branch TDAP 2020-02-14 Completed University of 00:00:00 [facility] Influenza Virus 2020-02-14 Completed Universit y of Vaccine Quad .5 mL 00:00:00 [place] [facility] 6+ MO Branch TDAP 2020-02-14 Completed University of 00:00:00 [facility] Influenza Virus 2020-02-14 Completed Universit y of Vaccine Quad .5 mL 00:00:00 [place] [facility] 6+ MO Branch TDAP 2020-02-14 Completed University of 00:00:00 [facility] Influenza Virus 2020-02-14 Completed Universit y of Vaccine Quad .5 mL 00:00:00 [place] [facility] IM 6+ MO Branch TDAP 2020-02-14 Completed University of 00:00:00 [place] [facility] [place] Influenza Virus 2020-02-14 Completed Universit y of Vaccine Quad .5 mL 00:00:00 [place] [facility] IM 6+ MO Branch TDAP 2020-02-14 Completed University of 00:00:00 [facility] Influenza Virus 2020-02-14 Completed Universit y of Vaccine Quad .5 mL 00:00:00 [place] [facility] 6+ MO Branch TDAP 2020-02-14 Completed University of 00:00:00 [facility] Influenza Virus 2020-02-14 Completed Universit y of Vaccine Quad .5 mL 00:00:00 [place] [facility] IM 6+ MO Branch TDAP 2020-02-14 Completed University of 00:00:00 [place] [facility] [place] Influenza Virus 2020-02-14 Completed Universit y of Vaccine Quad .5 mL 00:00:00 [place] [facility] IM 6+ MO Branch TDAP 2020-02-14 Completed University of 00:00:00 [place] [facility] [place] Influenza Virus 2020-02-14 Completed Universit y of Vaccine Quad .5 mL 00:00:00 [place] [facility] IM 6+ MO Branch TDAP 2020-02-14 Completed University of 00:00:00 [place] [facility] [place] Influenza Virus 2020-02-14 Completed Universit y of Vaccine Quad .5 mL 00:00:00 [place] [facility] 6+ MO Branch TDAP 2020-02-14 Completed University of 00:00:00 [facility] Influenza Virus 2020-02-14 Completed Universit y of Vaccine Quad .5 mL 00:00:00 [place] [facility] 6+ MO Branch TDAP 2020-02-14 Completed University of 00:00:00 [place] [facility] [place] Influenza Virus 2020-02-14 Completed Universit y of Vaccine Quad .5 mL 00:00:00 [place] [facility] 6+ MO Branch TDAP 2020-02-14 Completed University of 00:00:00 [place] [facility] [place] Influenza Virus 2020-02-14 Completed Universit y of Vaccine Quad .5 mL 00:00:00 [place] [facility] 6+ MO Branch TDAP 2020-02-14 Completed University of 00:00:00 [place] [facility] [place] Influenza Virus 2020-02-14 Completed Universit y of Vaccine Quad .5 mL 00:00:00 [place] [facility] 6+ MO Branch TDAP 2020-02-14 Completed University of 00:00:00 [place] [facility] [place] Influenza Virus 2020-02-14 Completed Universit y of Vaccine Quad .5 mL 00:00:00 [place] [facility] IM 6+ MO Branch TDAP 2020-02-14 Completed University of 00:00:00 [place] [facility] [place] Influenza Virus 2020-02-14 Completed Universit y of Vaccine Quad .5 mL 00:00:00 [place] [facility] IM 6+ MO Branch TDAP 2020-02-14 Completed University of 00:00:00 [place] [facility] [place] Influenza Virus 2020-02-14 Completed Universit y of Vaccine Quad .5 mL 00:00:00 [place] [facility] IM 6+ MO Branch TDAP 2020-02-14 Completed University of 00:00:00 [place] [facility] [place] Influenza Virus 2020-02-14 Completed Universit y of Vaccine Quad .5 mL 00:00:00 [place] [facility] IM 6+ MO Branch TDAP 2020-02-14 Completed University of 00:00:00 [facility] Influenza Virus 2020-02-14 Completed Universit y of Vaccine Quad .5 mL 00:00:00 [place] [facility] IM 6+ MO Branch TDAP 2020-02-14 Completed University of 00:00:00 [facility] Influenza Virus 2020-02-14 Completed Universit y of Vaccine Quad .5 mL 00:00:00 [place] [facility] IM 6+ MO Branch TDAP 2020-02-14 Completed University of 00:00:00 [facility] Influenza Virus 2020-02-14 Completed Universit y of Vaccine Quad .5 mL 00:00:00 [place] [facility] IM 6+ MO Branch TDAP 2020-02-14 Completed University of 00:00:00 [facility] Influenza Virus 2020-02-14 Completed Universit y of Vaccine Quad .5 mL 00:00:00 [place] [facility] IM 6+ MO Branch TDAP 2020-02-14 Completed University of 00:00:00 [facility] Influenza Virus 2020-02-14 Completed Universit y of Vaccine Quad .5 mL 00:00:00 [place] [facility] 6+ MO Branch Influenza Virus 2015-02-01 Completed Universit y of Vaccine Quad IM 3+ 00:00:00 [facility] Influenza Virus 2015-02-01 Completed Universit y of Vaccine Quad IM 3+ 00:00:00 [facility] Influenza Virus 2015-02-01 Completed Universit y of Vaccine Quad IM 3+ 00:00:00 [facility] Influenza Virus 2015-02-01 Completed Universit y of Vaccine Quad IM 3+ 00:00:00 [facility] Influenza Virus 2015-02-01 Completed Universit y of Vaccine Quad IM 3+ 00:00:00 [facility] Influenza Virus 2015-02-01 Completed Universit y of Vaccine Quad IM 3+ 00:00:00 [facility] Influenza Virus 2015-02-01 Completed Universit y of Vaccine Quad IM 3+ 00:00:00 [facility] Influenza Virus 2015-02-01 Completed Universit y of Vaccine Quad IM 3+ 00:00:00 [facility] Influenza Virus 2015-02-01 Completed Universit y of Vaccine Quad IM 3+ 00:00:00 [facility] Branch Influenza Virus 2015-02-01 Completed Universit y of Vaccine Quad IM 3+ 00:00:00 [facility] Branch Influenza Virus 2015-02-01 Completed Universit y of Vaccine Quad IM 3+ 00:00:00 [facility] Influenza Virus 2015-02-01 Completed Universit y of Vaccine Quad IM 3+ 00:00:00 [facility] Influenza Virus 2015-02-01 Completed Universit y of Vaccine Quad IM 3+ 00:00:00 [facility] Branch Influenza Virus 2015-02-01 Completed Universit y of Vaccine Quad IM 3+ 00:00:00 [facility] Influenza Virus 2015-02-01 Completed Universit y of Vaccine Quad IM 3+ 00:00:00 [facility] Influenza Virus 2015-02-01 Completed Universit y of Vaccine Quad IM 3+ 00:00:00 [facility] Influenza Virus 2015-02-01 Completed Universit y of Vaccine Quad IM 3+ 00:00:00 [facility] Influenza Virus 2015-02-01 Completed Universit y of Vaccine Quad IM 3+ 00:00:00 [facility] Influenza Virus 2015-02-01 Completed Universit y of Vaccine Quad IM 3+ 00:00:00 [facility] Branch Influenza Virus 2015-02-01 Completed Universit y of Vaccine Quad IM 3+ 00:00:00 [facility] Branch Influenza Virus 2015-02-01 Completed Universit y of Vaccine Quad IM 3+ 00:00:00 [facility] Influenza Virus 2015-02-01 Completed Universit y of Vaccine Quad IM 3+ 00:00:00 [facility] Influenza Virus 2015-02-01 Completed Universit y of Vaccine Quad IM 3+ 00:00:00 [facility] Influenza Virus 2015-02-01 Completed Universit y of Vaccine Quad IM 3+ 00:00:00 [facility] Influenza Virus 2015-02-01 Completed Universit y of Vaccine Quad IM 3+ 00:00:00 [facility] Influenza Virus 2015-02-01 Completed Universit y of Vaccine Quad IM 3+ 00:00:00 [facility] Influenza Virus 2015-02-01 Completed Universit y of Vaccine Quad IM 3+ 00:00:00 [facility] Influenza Virus 2015-02-01 Completed Universit y of Vaccine Quad IM 3+ 00:00:00 [facility] Influenza Virus 2015-02-01 Completed Universit y of Vaccine Quad IM 3+ 00:00:00 [facility] Branch Influenza Virus 2015-02-01 Completed Universit y of Vaccine Quad IM 3+ 00:00:00 [facility] Influenza Virus 2015-02-01 Completed Universit y of Vaccine Quad IM 3+ 00:00:00 [facility] Influenza Virus 2015-02-01 Completed Universit y of Vaccine Quad IM 3+ 00:00:00 [facility] Influenza Virus 2015-02-01 Completed Universit y of Vaccine Quad IM 3+ 00:00:00 [facility] Influenza Virus 2015-02-01 Completed Universit y of Vaccine Quad IM 3+ 00:00:00 [facility] Influenza Virus 2015-02-01 Completed Universit y of Vaccine Quad IM 3+ 00:00:00 [facility] Influenza Virus 2015-02-01 Completed Universit y of [facility] IM 3+ 00:00:00 [facility] Influenza Virus 2015-02-01 Completed Universit y of Vaccine [facility] IM 3+ 00:00:00 [facility] Influenza Virus 2015-02-01 Completed Universit y of Vaccine [facility] IM 3+ 00:00:00 [facility] Influenza Virus 2015-02-01 Completed Universit y of Vaccine [facility] IM 3+ 00:00:00 [facility] Influenza Virus 2015-02-01 Completed Universit y of Vaccine [facility] IM 3+ 00:00:00 [facility] Influenza Virus 2015-02-01 Completed Universit y of Vaccine [facility] IM 3+ 00:00:00 [facility] Influenza Virus 2015-02-01 Completed Universit y of Vaccine [facility] IM 3+ 00:00:00 [facility] Influenza Virus 2015-02-01 Completed Universit y of Vaccine [facility] IM 3+ 00:00:00 [facility] Influenza Virus 2015-02-01 Completed Universit y of Vaccine [facility] IM 3+ 00:00:00 [facility] Influenza Virus 2015-02-01 Completed Universit y of Vaccine [facility] IM 3+ 00:00:00 [facility] Influenza Virus 2015-02-01 Completed Universit y of Vaccine [facility] IM 3+ 00:00:00 [facility] Influenza Virus 2015-02-01 Completed Universit y of [facility]ine [facility] IM 3+ 00:00:00 [facility] Influenza Virus 2015-02-01 Completed Universit y of Vaccine [facility] IM 3+ 00:00:00 [facility] Influenza Virus 2015-02-01 Completed Universit y of [facility]ine [facility] IM 3+ 00:00:00 [facility] Influenza Virus 2015-02-01 Completed Universit y of Vaccine [facility] IM 3+ 00:00:00 [facility] Influenza Virus 2015-02-01 Completed Universit y of Vaccine [facility] IM 3+ 00:00:00 [facility] Influenza Virus 2015-02-01 Completed Universit y of [facility] IM 3+ 00:00:00 [facility] Influenza Virus 2015-02-01 Completed [facility]it y of Vaccine [facility] IM 3+ 00:00:00 [facility] Influenza Virus 2015-02-01 Completed Universit y of Vaccine [facility] IM 3+ 00:00:00 [facility] Vital Signs Vital Name Observation Time Observation Value Comments Source Systolic blood 2020-08-13 13:47:00 121 mm[Hg] Univer sity of pressure [facility] Diastolic blood 2020-08-13 13:47:00 70 mm[Hg] Unive rsity of pressure [facility] Heart rate 2020-08-13 13:47:00 71 /min Universi ty of [facility] Body temperature 2020-08-13 13:47:00 36.67 Jasmin [facility] ersity [facility] Respiratory rate 2020-08-13 13:47:00 18 /min [facility] Body height 2020-08-13 13:47:00 180.3 cm Universi ty of [facility] Body weight 2020-08-13 13:47:00 124.286 kg Universi ty of [facility] BMI 2020-08-13 13:47:00 38.22 kg/m2 Universi ty [facility] Systolic blood 2020-08-13 13:47:00 121 mm[Hg] Univer sity of pressure [facility] Diastolic blood 2020-08-13 13:47:00 70 mm[Hg] Unive rsity of pressure [facility] Heart rate 2020-08-13 13:47:00 71 /min Universi ty of [facility] Body temperature 2020-08-13 13:47:00 36.67 Jasmin Univ ersity [facility] Respiratory rate 2020-08-13 13:47:00 18 /min Univ ersity of [facility] Body height 2020-08-13 13:47:00 180.3 cm [facility] Body weight 2020-08-13 13:47:00 124.286 kg [facility] BMI 2020-08-13 13:47:00 38.22 kg/m2 [facility] Systolic blood 2020-07-19 15:56:00 116 mm[Hg] Univer sity of pressure [facility] Diastolic blood 2020-07-19 15:56:00 69 mm[Hg] Unive rsity of pressure [facility] Heart rate 2020-07-19 15:56:00 73 /min [facility] Body temperature 2020-07-19 15:56:00 36.44 Jasmin Univ [facility] Respiratory rate 2020-07-19 15:56:00 16 /min Univ ersity [facility] Oxygen saturation in 2020-07-19 15:56:00 99 /min University of Arterial blood by [place] [employer] [facility] Body weight 2020-07-19 08:45:00 126.554 kg [facility] BMI 2020-07-19 08:45:00 38.93 kg/m2 [facility] Body height 2020-07-18 16:47:00 180.3 cm [facility] Systolic blood 2020-07-10 08:00:00 120 mm[Hg] Univer sity of pressure [facility] Diastolic blood 2020-07-10 08:00:00 78 mm[Hg] Unive rsity of pressure [facility] Heart rate 2020-07-10 08:00:00 66 /min [facility]i [facility] Respiratory rate 2020-07-10 08:00:00 18 /min Univ ersity of [facility] Oxygen saturation in 2020-07-10 08:00:00 96 /min University of Arterial blood by [employer] dee Pulse oximetry Branch Body temperature 2020-07-10 05:53:00 36.56 Jasmin Univ ersity [facility] Body weight 2020-07-10 05:53:00 122.925 kg [facility] BMI 2020-07-10 05:53:00 37.80 kg/m2 [facility] [place] Heart rate 2020-06-08 04:18:00 59 /min Universi ty of [facility] Oxygen saturation in 2020-06-08 04:18:00 98 /min University of Arterial blood by [facility] Pulse oximetry Branch Systolic blood 2020-06-08 04:00:00 140 mm[Hg] Univer sity of pressure [facility] Diastolic blood 2020-06-08 04:00:00 93 mm[Hg] Unive rsity of pressure [facility] Respiratory rate 2020-06-08 04:00:00 19 /min Univ ersity of [facility] Body temperature 2020-06-08 03:42:00 36.72 Jasmin Univ ersity [facility] Body weight 2020-06-08 03:42:00 122.925 kg [facility] BMI 2020-06-08 03:42:00 37.80 kg/m2 [facility] Systolic blood 2020-05-24 22:55:00 122 mm[Hg] Univer sity of pressure [facility] Diastolic blood 2020-05-24 22:55:00 81 mm[Hg] Unive rsity of pressure [facility] Heart rate 2020-05-24 22:55:00 64 /min [facility] Body temperature 2020-05-24 22:55:00 36.61 Jasmin Univ [facility] Body height 2020-05-24 22:55:00 180.3 cm [facility] Body weight 2020-05-24 22:55:00 124.286 kg [facility] BMI 2020-05-24 22:55:00 38.22 kg/m2 [facility] Systolic blood 2020-05-18 10:00:00 122 mm[Hg] Univer sity of pressure [facility] Diastolic blood 2020-05-18 10:00:00 75 mm[Hg] Unive rsity of pressure [facility] Heart rate 2020-05-18 10:00:00 66 /min Universi ty of [facility] Respiratory rate 2020-05-18 10:00:00 14 /min Univ ersity of [facility] Oxygen saturation in 2020-05-18 10:00:00 99 /min University of Arterial blood by [facility] Pulse oximetry [place] Body temperature 2020-05-18 07:07:00 36.22 Jasmin Univ ersity of [facility] Body weight 2020-05-18 07:07:00 122.471 kg Universi ty of [facility] BMI 2020-05-18 07:07:00 37.66 kg/m2 Universi ty of [facility] Systolic blood 2020-05-02 20:24:00 125 mm[Hg] Univer sity of pressure [facility] Diastolic blood 2020-05-02 20:24:00 89 mm[Hg] Unive rsity of pressure [facility] Heart rate 2020-05-02 20:24:00 61 /min Universi ty of [facility] Body temperature 2020-05-02 20:24:00 37 Jasmin Univ ersity of [facility] Respiratory rate 2020-05-02 20:24:00 18 /min Univ ersity of [facility] Body weight 2020-05-02 20:24:00 125.646 kg Universi ty of [facility] BMI 2020-05-02 20:24:00 38.63 kg/m2 Universi ty of [facility] Systolic blood 2020-04-18 17:55:00 121 mm[Hg] Univer sity of pressure [facility] Diastolic blood 2020-04-18 17:55:00 74 mm[Hg] Unive rsity of pressure [facility] Heart rate 2020-04-18 17:55:00 78 /min Universi ty of [facility] Respiratory rate 2020-04-18 17:55:00 20 /min Univ ersity of [facility] Body height 2020-04-18 17:55:00 180.3 cm Universi ty of [facility] Body weight 2020-04-18 17:55:00 134.174 kg Universi ty of [facility] BMI 2020-04-18 17:55:00 41.26 kg/m2 Universi ty of [facility] Systolic blood 2020-04-16 21:27:00 118 mm[Hg] Univer sity of pressure [facility] Diastolic blood 2020-04-16 21:27:00 71 mm[Hg] Unive rsity of pressure [facility] Heart rate 2020-04-16 21:27:00 80 /min [facility] Body temperature 2020-04-16 21:27:00 36.33 Jasmin Univ ersity of [facility] Respiratory rate 2020-04-16 21:27:00 16 /min Univ ersity of [facility] Body height 2020-04-16 21:27:00 180.3 cm [facility] Body weight 2020-04-16 21:27:00 134.99 kg [facility] BMI 2020-04-16 21:27:00 41.51 kg/m2 [facility] Systolic blood 2020-04-12 21:38:00 123 mm[Hg] Univer sity of pressure [facility] Diastolic blood 2020-04-12 21:38:00 80 mm[Hg] Unive rsity of pressure [facility] Heart rate 2020-04-12 21:38:00 89 /min [facility] Body temperature 2020-04-12 21:38:00 36.83 Jasmin Univ ersity of [facility] Respiratory rate 2020-04-12 21:38:00 18 /min Univ ersity of [facility] Body height 2020-04-12 21:38:00 180.3 cm [facility] Body weight 2020-04-12 21:38:00 135.081 kg [facility] BMI 2020-04-12 21:38:00 41.53 kg/m2 [facility] Systolic blood 2020-03-29 21:46:00 95 mm[Hg] Univer sity of pressure [facility] Diastolic blood 2020-03-29 21:46:00 55 mm[Hg] Unive rsity of pressure [facility] Heart rate 2020-03-29 21:46:00 83 /min [facility] Body temperature 2020-03-29 21:46:00 36.94 Jasmin Univ ersity of [facility] Respiratory rate 2020-03-29 21:46:00 18 /min Univ ersity of [facility] Body height 2020-03-29 21:46:00 180.3 cm [facility] Body weight 2020-03-29 21:46:00 134.265 kg [facility] BMI 2020-03-29 21:46:00 41.28 kg/m2 [facility] Systolic blood 2020-03-21 21:28:00 105 mm[Hg] Univer sity of pressure [facility] Diastolic blood 2020-03-21 21:28:00 71 mm[Hg] Unive rsity of pressure [facility] Heart rate 2020-03-21 21:28:00 83 /min [facility]i ty [facility] Body temperature 2020-03-21 21:28:00 36.67 Jasmin Univ ersity [facility] Respiratory rate 2020-03-21 21:28:00 16 /min Univ ersity of [facility] Body height 2020-03-21 21:28:00 180.3 cm [facility] Body weight 2020-03-21 21:28:00 133.085 kg [facility] BMI 2020-03-21 21:28:00 40.92 kg/m2 [facility] Systolic blood 2020-03-14 18:01:00 112 mm[Hg] Univer sity of pressure [facility] Diastolic blood 2020-03-14 18:01:00 71 mm[Hg] Unive rsity of pressure [facility] Heart rate 2020-03-14 18:01:00 73 /min [facility]i ty [facility] Body temperature 2020-03-14 18:01:00 36.5 Jasmin Univ ersity [facility] Respiratory rate 2020-03-14 18:01:00 18 /min Univ ersity of [facility] Body height 2020-03-14 18:01:00 180.3 cm [facility] Body weight 2020-03-14 18:01:00 132.904 kg [facility] BMI 2020-03-14 18:01:00 40.87 kg/m2 [facility] Systolic blood 2020-02-14 16:18:00 110 mm[Hg] Univer sity of pressure [facility] Diastolic blood 2020-02-14 16:18:00 73 mm[Hg] Unive rsity of pressure [facility] Heart rate 2020-02-14 16:18:00 79 /min [facility] ty [facility] Body temperature 2020-02-14 16:18:00 36.94 Jasmin Univ ersity [facility] Respiratory rate 2020-02-14 16:18:00 18 /min Univ ersity of [facility] Body height 2020-02-14 16:18:00 175.3 cm [facility]i ty of [facility] Body weight 2020-02-14 16:18:00 128.822 kg [facility] BMI 2020-02-14 16:18:00 41.94 kg/m2 Universi ty of [facility] Systolic blood 2019-12-06 16:20:00 126 mm[Hg] Univer sity of pressure [facility] Diastolic blood 2019-12-06 16:20:00 80 mm[Hg] Unive rsity of pressure [facility] Heart rate 2019-12-06 16:20:00 99 /min Universi ty of [facility] Body temperature 2019-12-06 16:20:00 37.17 Jasmin Univ ersity of [facility] Respiratory rate 2019-12-06 16:20:00 18 /min Univ ersity of [facility] Body height 2019-12-06 16:20:00 180.3 cm Universi ty of [facility] Body weight 2019-12-06 16:20:00 124.286 kg [facility] ty [facility] BMI 2019-12-06 16:20:00 38.22 kg/m2 Universi ty of [facility] Systolic blood 2019-11-28 23:20:00 136 mm[Hg] Univer sity of pressure [facility] Diastolic blood 2019-11-28 23:20:00 76 mm[Hg] Unive rsity of pressure [facility] Heart rate 2019-11-28 23:20:00 81 /min Universi ty of [facility] Respiratory rate 2019-11-28 23:20:00 18 /min Univ ersity of [facility] Oxygen saturation in 2019-11-28 23:20:00 95 /min [facility] Arterial blood by [facility] Pulse oximetry Branch Body temperature 2019-11-28 20:43:00 37.28 Jasmin Univ ersity of [facility] Body height 2019-11-28 20:43:00 180.3 cm Universi ty of [facility] Body weight 2019-11-28 20:43:00 122.471 kg Universi ty of [facility] BMI 2019-11-28 20:43:00 37.66 kg/m2 Universi ty of [facility] Systolic blood 2019-11-03 14:20:00 134 mm[Hg] [facility] 2019-11-03 14:20:00 82 mm[Hg] [facility] Heart rate 2019-11-03 14:20:00 92 /min [facility] Body temperature 2019-11-03 14:20:00 36.67 Jasmin [facility] Respiratory rate 2019-11-03 14:20:00 16 /min [facility] Body height 2019-11-03 14:20:00 180.3 cm [facility] Body weight 2019-11-03 14:20:00 125.363 kg [facility] BMI 2019-11-03 14:20:00 38.55 kg/m2 [facility] Procedures Procedure Date / Time Performing Clinician Source Performed [place] TIME OR 2020-07-18 20:03:05 Belén Crespo [facility] (NON-REPORTABLE) [facility] LAPAROSCOPIC 2020-07-18 17:51:00 Belén Crespo [facility] CHOLECYSTECTOMY [facility] US ABDOMEN LIMITED 2020-07-18 13:22:57 Belén Crespo [facility] COVID-19 (ID NOW RAPID 2020-07-18 12:13:00 [facility] TESTING) [facility] CT ABDOMEN PELVIS W 2020-07-18 11:51:38 Roshan West [facility] CONTRAST [facility] POCT TEST 2020-07-18 11:36:00 Roshan West [facility] LIPASE 2020-07-18 11:26:00 Roshan West [facility] BILI UNCONJUGATED/BILI 2020-07-18 11:26:00 Roshan [facility] CONJUG [facility] COMP. METABOLIC PANEL 2020-07-18 11:26:00 Roshan West [facility] ([id number]) [facility] CBC WITH DIFF 2020-07-18 11:26:00 Singer [facility] URINALYSIS 2020-07-18 11:26:00 Singer [facility] CONSENT/REFUSAL FOR 2020-07-18 11:10:36 Doctor Kris [facility] DIAGNOSIS AND TREATMENT [place] [facility] [place] CT ABDOMEN PELVIS W 2020-07-10 07:05:30 Matthias Bedolla [facility] CONTRAST Medical Branch LIPASE 2020-07-10 06:16:00 Matthias Bedolla [facility] COMP. METABOLIC PANEL 2020-07-10 06:16:00 Matthias Bedolla [facility] ([id number]) [facility] [place] CBC WITH DIFF 2020-07-10 06:16:00 Matthias Bedlola [facility] URINALYSIS 2020-07-10 06:16:00 Matthias Bedolla [facility] POCT TEST 2020-07-10 06:00:00 Matthias Bedolla [facility] NOTICE OF PRIVACY 2020-07-10 05:38:40 Doctor Kris, [facility] PRACTICES [place] [facility] [place] CONSENT/REFUSAL FOR 2020-07-10 05:38:26 Doctor Unassrichie, [facility] DIAGNOSIS [facility] TRE[facility] NOTICE OF PRIVACY 2020-06-08 03:37:21 Doctor Unassigned, [facility] PRACTICES [place] [facility] CONSENT/REFUSAL FOR 2020-06-08 03:37:05 Doctor Jasmynssigned, [facility] DIAGNOSIS AND TREAT[facility] CONSENT/REFUSAL FOR 2020-06-08 03:37:02 Doctor Kris [facility] DIAGNOSIS AND TREATMENT [facility] POCT TEST 2020-05-24 00:00:00 Ladonna Leyva [facility] CT CHEST PULMONARY 2020-05-18 08:55:26 Ekta Morse [facility] ANGIOGRAM Medical Branch LIPASE 2020-05-18 07:51:[address] [facility] TROPONIN I 2020-05-18 07:51:[address] [facility] HEPATIC FUNCTION PANEL 2020-05-18 07:51:[address] [facility] ([id number]) (ALB,T.PRO,BILI Medical Branch T,BU/BC,ALT,AST,ALK PHOS) BASIC METABOLIC PANEL (NA, 2020-05-18 07:51:00 Ekta Morse [facility] K, CL, CO2, GLUCOSE, BUN, Medica l Branch CREATININE, CA) CBC WITH DIFF 2020-05-18 07:51:[address] [facility] NOTICE OF PRIVACY 2020-05-18 07:05:35 Doctor Unassigned, [facility] PRACTICES [place] [facility] CONSENT/REFUSAL FOR 2020-05-18 07:04:19 Doctor Unassigned, [facility] DIAGNOSIS AND TREATMENT [place] [facility] CONSENT/REFUSAL FOR 2020-05-18 07:04:14 Doctor Unassigned, [facility] DIAGNOSIS AND TREATMENT [facility] BIOPHYSICAL PROFILE 2020-04-18 18:32:22 Rishi Singh [facility] NON-STRESS TEST 2020-04-17 01:03:44 Ladonna Leyva [facility] POCT URINALYSIS W/O 2020-04-16 00:00:00 Ladonna Leyva [facility] SPECIFIC GRAVITY [facility] NON-STRESS TEST 2020-04-13 01:37:29 Ladonna Leyva [facility] NON-STRESS TEST 2020-03-29 22:00:32 Darnell Ruy [facility] NON-STRESS TEST 2020-03-21 22:08:58 Darnell Ruy [facility] NON-STRESS TEST 2020-03-21 22:06:45 Ladonna Leyva [facility] SECOND AND THIRD TRIMESTER 2020-03-09 19:49:00 [facility] SECOND AND THIRD TRIMESTER 2020-03-01 19:32:00 Ladonna Leyva [facility] ULTRASOUND [facility] FLU VACC ([id number]), 6+ 2020-02-14 17:05:03 [facility]AD [facility] Branch TDAP VACCINE, >11 YRS, IM 2020-02-14 16:44:57 Ladonna Leyva [facility] [place] [facility] SECOND AND THIRD TRIMESTER 2020-01-05 21:19:00 Leyva [facility] SECOND AND THIRD TRIMESTER 2020-01-05 20:51:00 Leyva, [facility]TR[facility] SECOND AND THIRD TRIMESTER 2020-01-05 20:44:00 Leyva, Ladonna Cam U [facility] CONSENT TO CONTACT FOR 2019-12-06 16:09:25 Doctor Unassigned, [facility] VOLUNTARY RESEARCH [place] [facility]IS 2019-11-28 23:13:00 Matthias Bedolla [facility] COMP. METABOLIC PANEL 2019-11-28 21:47:00 Matthias Bedolla [facility] ([id number]) [facility] [place] CBC WITH DIFF 2019-11-28 21:47:00 Matthias Bedolla [facility] NOTICE OF PRIVACY 2019-11-28 20:29:30 Doctor Unassrichie, [facility] PRACTICES [place] [facility] CONSENT/REFUSAL FOR 2019-11-28 20:29:18 Doctor Unassrichie, [facility] DIAGNOSIS AND TREATMENT [place] [facility] [place] POCT URINALYSIS W/O 2019-11-03 14:11:00 Kelsey Wall [facility] [place] SPECIFIC GRAVITY [facility] POCT TEST 2019-11-03 14:10:[address] [facility] Encounters Start End Encounter Admission Attending Care Care Encounter Source Date/Time Date/Time Type Type Clinicians Facility Department ID 2021-02-24 Emergency [facility] [id number] Univers 08:03:59 ity of [facility] 2021-02-24 Emergency [facility] [id number] Univers 06:12:16 ity of [facility] 2021-02-23 Emergency [facility] [id number] Univers 23:13:52 ity of [facility] 2021-02-23 Emergency [facility] [id number] Univers 18:44:48 ity of [facility] 2021-02-23 Emergency [facility] [id number] Univers 14:23:18 ity of [facility] 2021-04-26 2021-04-26 Laboratory Only, Ang Db Test [facility] 1.2.8 40.114 [id number] Univers 13:00:00 13:15:00 [id number] [facility] [id number] Kostas as ROLANDO?BLEA [id number] Ct [address] MEDICAL OFFICE BUILDING 2021-04-26 2021-04-26 Outpatient R [facility] [id number] Univers 13:00:00 13:00:00 [id number] [facility] 2021-04-26 2021-04-26 [facility] [id number] Univers 13:00:00 [facility]00[facility]00 [facility] 2021-04-26 2021-04-26 [facility] [id number] Univers 12:50:00 12:50:00 [facility] 2020-08-14 2020-08-14 [facility] [id number] Univers 14:30:00 14:30:00 BELÉN [id number] [facility] 2020-08-13 2020-08-13 Office [facility] [id number] 08:41:30 09:13:07 Visit Belén Aly[place] [id number] [place] [id number] Professio [id number] [address] 2020-08-13 2020-08-13 Office [facility] [id number] Univers 08:41:30 09:13:07 Visit Belén Lidia [id number] i [place] of [id number] [id number] [facility] [address] [facility] 2020-08-13 2020-08-13 Outpatient R ZAK [facility] [id number] Univers 08:45:00 08:45:00 BELÉN [id number] [facility] 2020-08-13 2020-08-13 Outpatient R ZAK [facility] [id number] Univers 08:45:00 08:45:00 BELÉN ity [facility] 2020-08-02 2020-08-02 Outpatient R ОЛЕГ, [facility] [id number] Univers 10:00:00 10:00:00 LORE [id number] jerrica o f [facility] 2020-08-02 2020-08-02 Outpatient R ОЛЕГ [facility] [id number] Univers 10:00:00 10:00:00 LORE becerril o f [facility] 2020-07-18 2020-07-19 Emergency Roshan [place] [facility] 1.2.840. 114 [id number] Univers 06:12:00 11:15:00 Michael Agarwal 350.1.13.10 it[place] of [place] [phone] [place] [id number] [place] 2020-07-17 2020-07-17 Patient George [facility] 1.2.840.114 [id number] Univers 00:00:00 00:00:00 Outreach Jonny COMBS 350.1.13.10 i ty of [facility] [place] [phone] Ct dical [address] 2020-07-10 2020-07-10 Emergency [facility] 1.2.325.109 [id number] Univers 00:45:00 03:37:00 Matthias Murillo 350.1.13.10 i ty of [place] [phone] [facility] [address] 2020-07-10 2020-07-10 Orders Doctor SCHAEFFER 1.2.840.114 [id number] Univers 00:00:00 00:00:00 Only Unassigned, JONE 350.1.13.10 ity of [place] [facility] 4.2.7.2.686 Kostas as [phone] [facility] [address] 2020-06-21 2020-06-21 Outpatient Nikos PATRICK [facility] [id number] Univers 13:00:00 13:00:00 RUY [id number] [facility] 2020-06-21 2020-06-21 Outpatient R DARNELL [facility] [id number] Univers 13:00:00 13:00:00 [facility] 2020-06-16 2020-06-16 [facility] 1.2.559.005 [id number] Univers 00:00:00 00:00:00 Ruy Murillo 350.1.13.10 i ty of [place] [phone] Ct dical nal 134 [facility] 2020-06-11 2020-06-11 Outpatient R [facility] [id number] -[id number] Univers 13:00:00 13:00:00 [id number] ity [facility] 2020-06-11 2020-06-11 Outpatient R [facility] [id number] Univers 13:00:00 13:00:00 ity [facility] 2020-06-07 2020-06-07 Emergency [facility] 1.2.981.511 [id number] Univers 21:44:00 23:54:00 Marissa Jordin Murillo 350.1.13.10 i ty of [place] [phone] [facility] 084 [place] 2020-05-25 2020-05-25 Outpatient [facility] [id number] -[id number] Univers 15:30:00 15:30:00 [id number] [facility] 2020-05-24 2020-05-24 [facility] 1.2.644.030 [id number] Univers 16:32:42 17:20:48 Ruy Murillo 350.1.13.10 ity of [place].7.[place] [phone] Ct dical nal [address] [place] [address] 2020-05-24 2020-05-24 Outpatient R LADONNA LEYVA [facility] [id number] Univers 14:15:00 14:15:00 [id number] ity [facility] 2020-05-24 2020-05-24 Outpatient R LADONNA LEYVA [facility] [id number] Univers 14:15:00 14:15:00 ity [facility] 2020-05-22 2020-05-22 Outpatient R SANDRA [facility] [id number] -[id number] Univers 16:30:00 16:30:00 JOSHUA [id number] ity [facility] 2020-05-22 2020-05-22 Outpatient R SANDRA [facility] [id number] Univers 16:30:00 16:30:00 JOSHUA ity [facility] 2020-05-18 2020-05-18 Outpatient [facility] [id number] -[id number] Univers 15:30:00 15:30:00 [id number] [facility] 2020-05-18 2020-05-18 Emergency [facility] 1.2.840.114 [id number] Univers 01:25:00 04:52:00 Ekta Murillo 350.1.13.10 [facility] 4.2.7.2.686 [facility] [phone] [place] [address] [place] 2020-05-15 2020-05-15 Outpatient IZZYNJ [facility] [id number] Univers 11:00:00 11:00:00 RUY [id number] ity [facility] 2020-05-15 2020-05-15 Outpatient Nikos PATRICK [facility] [id number] Univers 11:00:00 11:00:00 RUY ity [facility] 2020-05-11 2020-05-11 Outpatient [facility] [id number] -[id number] Univers 15:30:00 15:30:00 [id number] ity [facility] 2020-05-10 2020-05-10 Outpatient [facility] [id number] -[id number] Univers 15:00:00 15:00:00 [id number] ity [facility] 2020-05-07 2020-05-07 Outpatient [facility] [id number] -[id number] Univers 15:00:00 15:00:00 [id number] ity [facility] 2020-05-04 2020-05-04 Outpatient [facility] [id number] -[id number] Univers 15:30:00 15:30:00 [id number] ity [facility] 2020-05-03 2020-05-03 Outpatient [facility] [id number] -[id number] Univers 15:00:00 15:00:00 [id number] ity [facility] 2020-05-02 2020-05-02 Nurse Nurse, [facility] 1.2.840.114 [id number] Univers 14:01:32 14:32:49 Visit Ladonna Leyva 350.1.13.10 ity [facility] 4.2.7.2.686 Kost[place] [phone] Ct dical nal [facility] Branch [facility] 2020-05-02 2020-05-02 Outpatient R [facility] [id number] -[id number] Univers 14:00:00 14:00:00 [id number] ity [facility] 2020-05-02 2020-05-02 Outpatient R [facility] [id number] Univers 14:00:00 14:00:00 ity of [facility] 2020-04-30 2020-04-30 Outpatient [facility] [id number] -[id number] Univers 15:00:00 15:00:00 [id number] ity of [facility] 2020-04-30 2020-04-30 Outpatient R [facility] [id number] Univers 10:00:00 10:00:00 ity of [facility] 2020-04-26 2020-04-26 Outpatient R [facility] [id number] -[id number] Univers 15:15:00 15:15:00 [id number] ity of [facility] 2020-04-26 2020-04-26 Outpatient R [facility] [id number] Univers 14:00:00 14:00:00 ity of [facility] 2020-04-23 2020-04-23 Outpatient [facility] [id number] -[id number] Univers 15:00:00 15:00:00 [id number] ity of [facility] 2020-04-23 2020-04-23 Outpatient P NORAH ZAMUDIO [facility] ZECHARIAH [id number] Univers 05:13:00 05:13:00 NORAH ZAMUDIO ity of [facility] 2020-04-18 2020-04-18 Outpatient R [facility] [id number] -[id number] Univers 15:15:00 15:15:00 [id number] ity [facility] 2020-04-18 2020-04-18 Outpatient R [facility] [id number] Univers 14:00:00 14:00:00 ity of [facility] 2020-04-18 2020-04-18 Initial Rishi SinghIT 1.2.840.114 [id number] Univers 11:38:03 13:17:26 Sona Figueredo Y HEALTH 350.1 .13.10 ity of Visit CL[place] [id number] [address] 2020-04-16 2020-04-16 Routine Room, [facility] 1.2.840.1 14 [id number] Univers 15:00:45 17:11:56 Ladonna Leyva [place] 350.1.13.10 ity of [place] [phone] Ct dical nal [address] [place] [address] 2020-04-16 2020-04-16 Outpatient [facility] [id number] -[id number] Univers 15:00:00 15:00:00 [id number] ity of [facility] 2020-04-16 2020-04-16 Outpatient R LADONNA LEYVA [facility] [id number] Univers 15:00:00 15:00:00 ity of [facility] 2020-04-16 2020-04-16 Telephone RIC Singh 1.2.840.114 [id number] Univers 00:00:00 00:00:00 Rishi HEALTH 350.1.13.10 i ty of [place] [id number] [address] 2020-04-13 2020-04-13 Major Gifts Director Ultrasound, [facility] 1.2 .840.114 [id number] Univers 13:25:43 13:55:43 Visit Amada Hernandez 350.1.13.10 it[place] of [place] [phone] Ct dical nal [address] [place] [address] 2020-04-13 2020-04-13 Outpatient R [facility] [id number] Univers 13:30:00 13:30:00 [id number] ity of [facility] 2020-04-13 2020-04-13 Outpatient P AMADA HERNANDEZ [facility] [id number] Univers 13:30:00 13:30:00 AMADA HERNANDEZ ity [facility] 2020-04-12 2020-04-12 Routine Room, [facility] 1.2.840.1 14 [id number] Univers 14:59:15 16:52:34 Ladonna Leyva [place] 350.1.13.10 ity of [place] Profess[place] [phone] Ct dical [address] 2020-04-12 2020-04-12 Outpatient [facility] [id number] Univers 15:00:00 15:00:00 [id number] ity [facility] 2020-04-12 2020-04-12 Outpatient R [facility] [id number] Univers 15:00:00 15:00:00 ity [facility] 2020-04-09 2020-04-09 Outpatient R [facility] [id number] -[id number] Univers 15:00:00 15:00:00 [id number] ity of [facility] 2020-04-09 2020-04-09 Outpatient R [facility] [id number] Univers 15:00:00 15:00:00 ity [facility] 2020-04-04 2020-04-04 Major Gifts Director [facility] 1.2 .840.114 [id number] Univers 09:54:38 10:24:38 Visit KarthikGtAmada EXECUTIVE SECRETARY 350.1.13.10 ity [facility] 4.2.7.2.686 Kostas as MATERNAL [phone] Med ical & CHILD [address] [place] [address] 2020-04-04 2020-04-04 Outpatient R [facility] [id number] Univers 10:00:00 10:00:00 [id number] ity [facility] 2020-04-04 2020-04-04 Outpatient P [facility] [id number] Univers 10:00:00 10:00:00 ity [facility] 2020-03-30 2020-03-30 Major Gifts Director Ultrasound, [facility] 1.2 .840.114 [id number] Univers 14:26:00 14:56:00 Visit Norah Zamudio 350.1.13.10 it[place] of [place] [phone] [address] 2020-03-30 2020-03-30 Outpatient R [facility] [id number] Univers 14:30:00 14:30:00 ity of [facility] 2020-03-30 2020-03-30 Outpatient R [facility] [id number] Univers 14:30:00 14:30:00 ity of [facility] 2020-03-29 2020-03-29 Routine Room, [facility] 1.2.840.1 14 [id number] Univers 14:58:43 16:00:14 Ladonna Leyva Faizan Murillo 350.1.13.10 ity of [place] [phone] [address] 2020-03-29 2020-03-29 Outpatient [facility] [id number] Univers 15:00:00 15:00:00 ity of [facility] 2020-03-29 2020-03-29 Outpatient R [facility] [id number] Univers 15:00:00 15:00:00 ity of [facility] 2020-03-28 2020-03-28 Case Ladonna Leyva [facility] 1.2.610.933 [id number] Univers 00:00:00 00:00:00 Management Faizan Murillo 350.1.13.10 it[place] of [place] [id number] [address] 2020-03-27 2020-03-27 Outpatient R [facility] [id number] Univers 15:00:00 15:00:00 ity [facility] 2020-03-26 2020-03-26 Major Gifts Director Ultrasound, John [facility] 1.2 .840.114 [id number] Univers 15:09:46 15:33:40 Visit Mayra Pinto EXECUTIVE SECRETARY 350.1. 13.10 ity of [facility] 4.2.7.2.686 Kostas as MATERNAL [phone] Med ical & CHILD [address] [facility] 2020-03-26 2020-03-26 Outpatient R [facility] [id number] Univers 14:45:00 14:45:00 [id number] ity of [facility] 2020-03-26 2020-03-26 Outpatient P [facility] [id number] Univers 14:45:00 14:45:00 ity of [facility] 2020-03-21 2020-03-21 Routine Room, [facility] 1.2.840.1 14 [id number] Univers 15:01:47 15:56:49 Ladonna Leyva Cam [place] 350.1.13.10 ity of Visit [place] 4.2.7.2.686 M[phone] Ct dical [address] 2020-03-21 2020-03-21 Outpatient R [facility] [id number] Univers 15:00:00 15:00:00 [id number] ity of [facility] 2020-03-21 2020-03-21 Outpatient R [facility] [id number] Univers 15:00:00 15:00:00 ity of [facility] 2020-03-19 2020-03-19 Outpatient R [facility] [id number] Univers 15:00:00 15:00:00 [id number] ity of [facility] 2020-03-19 2020-03-19 Outpatient R [facility] [id number] Univers 15:00:00 15:00:00 ity of [facility] 2020-03-19 2020-03-19 [facility] [id number] Univers 00:00:00 00:00:00 RUY ity [facility] 2020-03-15 2020-03-15 Outpatient R [facility] [id number] Univers 15:00:00 15:00:00 [id number] ity of [facility] 2020-03-15 2020-03-15 Outpatient R [facility] [id number] Univers 15:00:00 15:00:00 ity of [facility] 2020-03-14 2020-03-14 Routine Room, [facility] 1.2.840.1 14 [id number] Univers 11:24:52 12:51:24 Ladonna Leyvaton 350.1.13.10 ity of [place] [id number] Ct dical nal [address] [place] [address] 2020-03-14 2020-03-14 Outpatient R LADONNA LEYVA [facility] [id number] Univers 11:15:00 11:15:00 [id number] ity of [facility] 2020-03-14 2020-03-14 Outpatient R LADONNA LEYVA [facility] [id number] Univers 11:15:00 11:15:00 ity of [facility] 2020-03-14 2020-03-14 Outpatient R [facility] [id number] Univers 11:00:00 11:00:00 ity of [facility] 2020-03-14 2020-03-14 Letter [facility] 1.2.980.518 [id number] Univers 00:00:00 00:00:00 (Out) Ruy Murillo 350.1.13.10 i ty of [place] [phone] Ct dical [address] 2020-03-13 2020-03-13 Outpatient R [facility] [id number] Univers 15:00:00 15:00:00 [id number] ity of [facility] 2020-03-13 2020-03-13 Outpatient R [facility] [id number] Univers 15:00:00 15:00:00 ity of [facility] 2020-03-09 2020-03-09 Major Gifts Director 5, [facility] Room UNIVERSIT 1 .2.840.114 [id number] Univers 13:26:10 14:23:27 Visit Amada Hernandez [facility] 350.1.13.10 ity of [place] [id number] [address] 2020-03-09 2020-03-09 Outpatient R [facility] [id number] Univers 13:00:00 13:00:00 [id number] ity of [facility] 2020-03-09 2020-03-09 Outpatient P [facility] [id number] Univers 13:00:00 13:00:00 ity [facility] 2020-03-09 2020-03-09 Telephone Ladonna Leyva [facility] 1.2.840.114 [id number] Univers 00:00:00 00:00:00 Faizan [place] 350.1.13.10 i ty of [place] [id number] Ct dical nal 134 [facility] 2020-03-02 2020-03-02 Major Gifts Director 2, [facility] 1.2.840.114 [id number] Univers 10:17:56 10:32:56 Visit Ladonna Leyva 350.1.13.10 it[place] of [place] [id number] Ct dical nal 353 [facility] 2020-03-02 2020-03-02 Outpatient R [facility] [id number] Univers 10:15:00 10:15:00 ity [facility] 2020-03-02 2020-03-02 Outpatient R LADONNA LEYVA [facility] [id number] Univers 10:15:00 10:15:00 ity [facility] 2020-03-01 2020-03-01 Major Gifts Director 3, [facility] Room UNIVERSIT 1 .2.840.114 [id number] Univers 12:58:02 13:44:17 Visit [facility] 350.1.13.10 ity of [facility] 4.2.7.2.[place] [id number] [address] 2020-03-01 2020-03-01 Outpatient R [facility] [id number] Univers 13:00:00 13:00:00 ity [facility] 2020-03-01 2020-03-01 Outpatient P [facility] [id number] Univers 13:00:00 13:00:00 ity of [facility] 2020-02-20 2020-02-20 Outpatient R [facility] [id number] Univers 11:30:00 11:30:00 [id number] ity [facility] 2020-02-20 2020-02-20 Outpatient R [facility] [id number] Univers 11:30:00 11:30:00 ity of [facility] 2020-02-14 2020-02-14 Routine Gordon [facility] 1.2.456.258 [id number] Univers 11:08:11 12:13:04 Faizan Murillo 350.1.13.10 ity of [place] [phone] [address] 2020-02-14 2020-02-14 Outpatient R GORDON LADONNA [facility] [id number] Univers 11:15:00 11:15:00 ity [facility] 2020-02-14 2020-02-14 Outpatient R GORDON LADONNA [facility] [id number] Univers 11:15:00 11:15:00 ity [facility] 2020-01-16 2020-01-16 Outpatient R DARNELL [facility] [id number] Univers 08:00:00 08:00:00 [facility]Y [id number] [facility] 2020-01-16 2020-01-16 Outpatient R DARNELL [facility] [id number] Univers 08:00:00 08:00:00 [facility] 2020-01-09 2020-01-09 Outpatient R DARNELL [facility] [id number] Univers 16:00:00 16:00:00 RUY [id number] [facility] 2020-01-09 2020-01-09 Outpatient R DARNELL [facility] [id number] Univers 16:00:00 16:00:00 [facility] 2020-01-05 2020-01-06 Major Gifts Director 1, [facility] Room UNIVERSIT 1 .2.840.114 [id number] Univers 14:15:37 08:27:56 Visit [facility] 350.1.13.10 ity [place] [id number] [address] 2020-01-05 2020-01-05 Outpatient R [facility] [id number] Univers 14:15:00 14:15:00 ity [facility] 2020-01-05 2020-01-05 Outpatient P [facility] [id number] Univers 14:15:00 14:15:00 ity of [facility] 2020-01-04 2020-01-05 Office 2, [facility] Cons[facility] UNIVERS IT 1.2.840.114 [id number] Univers 12:14:02 09:23:22 Visit Matthew Alcantar [facility] 350.1.13.10 ity of [place] [id number] [address] 2020-01-04 2020-01-04 Outpatient R [facility] [id number] Univers 13:00:00 13:00:00 ity of [facility] 2020-01-04 2020-01-04 Outpatient P [facility] [id number] Univers 13:00:00 13:00:00 ity of [facility] 2020-01-03 2020-01-03 Major Gifts Director [facility] 1.2 .840.114 [id number] Univers 08:15:39 09:15:39 Visit Mayra Pinto EXECUTIVE SECRETARY 350.1. 13.10 ity of REGIONAL 4.2.7.2.686 Kostas as MATERNAL [id number] Med ical & CHILD [address] [place] [address] 2020-01-03 2020-01-03 Outpatient R [facility] [id number] Univers 08:00:00 08:00:00 ity of [facility] 2020-01-03 2020-01-03 Outpatient R [facility] [id number] Univers 08:00:00 08:00:00 ity of [facility] 2019-12-12 2019-12-12 Outpatient R [facility] [id number] Univers 11:00:00 11:00:00 [id number] ity of [facility] 2019-12-12 2019-12-12 Outpatient R [facility] [id number] Univers 11:00:00 11:00:00 ity of [facility] 2019-12-06 2019-12-06 Initial Ladonna Leyva [facility] 1.2.056.569 [id number] Univers 11:08:00 12:04:06 Cam [place] 350.1.13.10 ity [place] [id number] Ct dical [address] 2019-12-06 2019-12-06 Outpatient Nikos LADONNA LEYVA [facility] [id number] Univers 11:00:00 11:00:00 [id number] ity of [facility] 2019-12-06 2019-12-06 Outpatient Nikos GORDON LADONNA [facility] [id number] Univers 11:00:00 11:00:00 ity of [facility] 2019-12-06 2019-12-06 Orders Doctor LAURY 1.2.840.114 [id number] Univers 00:00:00 00:00:00 Only Unassigned, JONE 350.1.13.10 ity of [place] [facility] 4.2.7.2.686 Kostas as [id number] [address] 2019-11-28 2019-11-28 Emergency [facility] 1.2.509.097 [id number] Univers 16:03:00 19:22:00 Matthias Murillo 350.1.13.10 i ty of [place] [id number] [address] 2019-11-28 2019-11-28 Orders Doctor LAURY 1.2.840.114 [id number] Univers 00:00:00 00:00:00 Only Unassigned, JONE 350.1.13.10 ity of [place] [facility] 4.2.7.2.686 Kostas as [id number] [address] 2019-11-22 2019-11-22 [facility] 1.2.840.114 [id number] Univers 00:00:00 00:00:00 Kelsey C EXECUTIVE SECRETARY 350.1.13.10 ity of [facility] 4.2.7.2.686 Kostas as MATERNAL [phone] Med ical & CHILD 107 [facility] 2019-11-22 2019-11-22 Telephone Pob1, Acute [facility] 1.2.840.114 [id number] Univers 00:00:00 00:00:00 [facility] 350.1.13.10 ity of [place] 4.2.7.2.686 Kostas as Professio [id number] Ct dical nal 044 [facility] 2019-11-18 2019-11-18 Laboratory Lab, Adc Fam Pob I [facility] 1.2. 840.114 [id number] Univers 10:40:23 11:00:23 Only Amada Hernandez [facility] 350.1.13.10 ity [facility] 4.2.7.2.686 Kostas as Professio [phone] Ct dical nal 044 [facility] 2019-11-18 2019-11-18 Major Gifts Director Ultrasound, Ang-Mfm [facility] 1.2 .840.114 [id number] Univers 10:00:28 10:24:10 Visit Amada Hernandez EXECUTIVE SECRETARY 350.1.13.10 ity of [facility] 4.2.7.2.686 Kostas as MATERNAL [phone] Med ical & CHILD [address] [place] [address] 2019-11-18 2019-11-18 Outpatient P [facility] [id number] Univers 10:00:00 10:00:00 [id number] ity of [facility] 2019-11-18 2019-11-18 Outpatient P [facility] [id number] Univers 10:00:00 10:00:00 ity of [facility] 2019-11-10 2019-11-10 Outpatient R [facility] [id number] Univers 14:45:00 14:45:00 [id number] ity of [facility] 2019-11-10 2019-11-10 Outpatient P [facility] [id number] Univers 14:45:00 14:45:00 ity of [facility] 2019-11-07 2019-11-07 Telephone Akinpe, [facility] 1.2.840.114 [id number] Univers 00:00:00 00:00:00 Kelsey C EXECUTIVE SECRETARY 350.1.13.10 ity of [facility] 4.2.7.2.686 Kostas as MATERNAL [id number] [facility] ical & CHILD 107 [facility] 2019-11-03 2019-11-03 Initial Akinsipe, COMB [id number] Univers 09:02:46 10:40:27 Kelsey C EXECUTIVE SECRETARY [id number] ity of Visit REGIONAL [id number] Kostas as MATERNAL [phone] Med ical & CHILD [address] [place] [address] 2019-11-03 2019-11-03 Outpatient Nikos [facility] [id number] Univers 08:30:00 08:30:00 KELSEY becerril o deborah [facility] 2018-01-27 2018-01-27 Outpatient Ngozi Melvint [id number] Common 16:01:00 16:01:00 [facility] [address] [facility] 2018-01-26 2018-01-26 Outpatient Antonmaggi [place] [id number] Common 13:20:00 13:20:00 t [facility] [address] [facility] 2017-11-18 2017-11-18 Outpatient Ngozi Melvint [id number] Common 15:15:00 15:15:00 [facility] Spir it [facility] Results Test Test Test Results Result Source Description Time Comments Comments FL TIME OR 2020-06- These images do not require University of (NON-REPORTABLE 24 a Radiology diagnostic [facility] ) 20:04:28 report. Branch US ABDOMEN 2020-06- Cholelithiasis without U niversity of LIMITED 24 sonographic evidence for [facility] 13:51:23 acute cholecystitis. Mild Branch hepatic [...] Comme nts BILI CONJ (test code = 5713679466) 0.0 mg/dL 0.0-0.3 BILI UNCON (test code = 4054601428) 0.6 mg/dL 0.1-1.1 Lab Interpretation (test code = 21259-2) Normal [facility]ID NOW RAPID TESTING)2020-07-18 13:20:12 Test Item Value Reference Range Interpretation Comments SARS-CoV-2 Rapid ID NOW Not Detected Not Detected (test code = 86634-7) TRISTON (test code = TRISTON) ID NOW COVID-19 Assay is an isothermal nucleic acid amplification test intended for the qualitative detection of nucleic acid from SARS-CoV-2 viral RNA in nasopharyngeal (ENVIRONMENTAL CONSTRUCTION ENGINEER) specimens. It is used under Emergency Use [...] indicated. Lab Interpretation Normal (test code = 74067-9) [facility]21[facility] 12:30:58 Test Item Value Reference Range Interpretation Comments APPEARANCE (test code = Clear Clear 5546218634) COLOR (test code = Yellow Yellow 7780858606) PH (test code = 4.8-8.0 3465760386) SP GRAVITY (test code = 1.003-1.030 0519693774) GLU U QUAL (test code = Normal Normal 5453049793) BLOOD (test code = Negative Negative 0966344405) KETONES (test code = Negative Negative 9025291021) PROTEIN (test code = Negative Negative 2887-8) UROBILIN (test code = Normal Normal 7350766162) BILIRUBIN (test code = Negative Negative 8351005774) NITRITE (test code = Negative Negative 7985752868) LEUK VAHID (test code = 250/uL Negative A 5739878633) RBC/HPF (test code = See_Comment H [Autom ated message] 6109619022) The system Flash Auto Detailing generated this result transmitted ref erence range: 0 - 3 HP F. The reference range was not used to int erpret this result as normal/abnormal . WBC/HPF (test code = See_Comment H [Autom ated message] 4966490007) The system Flash Auto Detailing generated this result transmitted ref erence range: 0 - 5 HP F. The reference range was not used to int erpret this result as normal/abnormal . BACTERIA (test code = Few Negative A 1550614345) SQ EPITH (test code = HPF 7020292803) Lab Interpretation (test Abnormal code = 23949-7) [facility] METABOLIC PANEL (60265)2020-07-18 12:30:33 Test Item Value Reference Range Interpretation Comments NA (test code = 140 mmol/L 135-145 4942946720) K (test code = 4.2 mmol/L 3.5-5.0 7207974530) CL (test code = 108 mmol/L 98-108 7261921597) CO2 TOTAL (test code = 24 mmol/L 23-31 4883642994) AGAP (test code = 2-16 8491467198) BUN (test code = 13 mg/dL 7-23 4205960973) GLUCOSE (test code = 101 mg/dL 70-110 9319360027) CREATININE (test code = 0.47 mg/dL 0.50-1.04 L 3543591888) TOTAL BILI (test code = 0.8 mg/dL 0.1-1.0 9742252009) CALCIUM (test code = 8.7 mg/dL 8.6-10.6 4658184021) T PROTEIN (test code = 7.2 g/dL 6.3-8.2 2208025644) ALBUMIN (test code = 4.4 g/dL 3.5-5.0 0354867621) ALK PHOS (test code = 169 U/L 34-122 H 9967243124) ALTv (test code = 79 U/L 5-35 H 1742-6) AST(SGOT) (test code = 37 U/L 13-40 6041380430) eGFR Calculation mL/min/1.73m2 (Non-) (test code = 9798287224) eGFR Calculation mL/min/1.73m2 () (test code = 5068291309) TRISTON (test code = TRISTON) Association of [...] tests). Lab Interpretation Abnormal (test code = 27106-8) [facility] 12:18:04 Test Item Value Reference Range Interpretation Comments LIPASE (test code = 0986486840) 127 U/L 0-220 Lab Interpretation (test code = Normal 04173-3) [facility] WITH [id number] 11:56:46 Test Item Value Reference Range Interpretation [...] RDW-SD (test code = 42.2 fL 39.0-49.9 85450-5) RDW-CV (test code = 12.6 % 12.0-15.5 788-0) PLT (test code = See_Comment [Automated 777-3) message] The sy stem which generated this result transmitted reference range : 166 - 358 10*3/ ?L. The reference r dejuan was not used to interpret this result as normal/abnormal . MPV (test code = 11.0 fL 9.5-12.9 84034-1) NRBC/100 WBC (test See_Comment [Automat ed code = 0881458006) message] The system which generated this result transmitted reference range : 0.0 - 10.0 /100 WBCs. The refer ence range was not u sed to interpret th is result as normal/abnormal . NRBC x10^3 (test code <0.01 See_Comment [Auto mated = 0176964540) message] The s ystem which generated this result transmitted reference range : 10*3/?L. The reference range was not used to interpret this result as normal/abnormal . GRAN MAT (NEUT) % 73.4 % (test code = 770-8) IMM GRAN % (test code 0.40 % = 7627382415) LYMPH % (test code = 19.4 % 736-9) MONO % (test code = 4.8 % 5905-5) EOS % (test code = 1.5 % 713-8) BASO % (test code = 0.5 % 706-2) GRAN MAT x10^3(ANC) 8.01 10*3/uL 1.88-7.09 H (test code = 6995761995) IMM GRAN x10^3 (test 0.04 10*3/uL 0.00-0.06 code = 6770931292) LYMPH x10^3 (test code 2.12 10*3/uL 1.32-3.29 = 731-0) MONO x10^3 (test code 0.52 10*3/uL 0.33-0.92 = 742-7) EOS x10^3 (test code = 0.16 10*3/uL 0.03-0.39 711-2) BASO x10^3 (test code 0.05 10*3/uL 0.01-0.07 = 704-7) Lab Interpretation Abnormal (test code = 58822-6) [facility] [id number] 11:36:00 Test Item Value Reference Range Interpretation Comments POCT PREG (test code = 1605) Negative On board controls acceptable with Present C Line (test code = 3574) POCT PREG LOT # (test code = HCG [id number] [id number]) POCT PREG TEST DATE (test 12/25/2021 code = 3576) Lab Interpretation (test code = Normal 26206-9) [facility] ABDOMEN PELVIS W [id number] 08:04:39 No acute process identified in the abdomen or pelvis. Cholelithiasis without CT evidence for acute cholecystitis. RL: 460 AFC: 11446 Ordering physician: MATTHIAS BEDOLLA Indication: Acute abdominal [...] abdomen and pelvis demonstrate no osseousdestructive lesion. [facility], Radiant Results Inft User - 07/10/2020 [...] without CT evidence for acute cholecystitis.RL: 460AF: [id number] Electronically signed by Griselda Varner MD, PhD at07/10/2020 3:04 AMUnB[facility] [id number] 06:46:26 Test Item Value Reference Range Interpretation Comments APPEARANCE (test code = Cloudy Clear A 5580564952) COLOR (test code = Yellow Yellow 4906679001) PH (test code = 4.8-8.0 5347884344) SP GRAVITY (test code = 1.003-1.030 0747688373) GLU U QUAL (test code = Normal Normal 3946250738) BLOOD (test code = Negative Negative 9092122667) KETONES (test code = Negative Negative 1350365778) PROTEIN (test code = Negative Negative 2887-8) UROBILIN (test code = Normal Normal 3571059126) BILIRUBIN (test code = Negative Negative 7677719317) NITRITE (test code = Negative Negative 7825764326) LEUK VAHID (test code = 25/uL Negative A 9750186431) RBC/HPF (test code = See_Comment [Autom ated message] 2987806490) The system Flash Auto Detailing generated this result transmitted ref erence range: 0 - 3 HP F. The reference range was not used to int erpret this result as normal/abnormal . WBC/HPF (test code = See_Comment H [Autom ated message] 7846994367) The system Flash Auto Detailing generated this result transmitted ref erence range: 0 - 5 HP F. The reference range was not used to int erpret this result as normal/abnormal . BACTERIA (test code = Many Negative A 3536630509) MUCOUS (test code = Slight Negative LPF A 7472684559) AMORPHOUS (test code = Moderate Rare HPF A 7507450444) SQ EPITH (test code = HPF 4263544996) Lab Interpretation (test Abnormal code = 37998-3) [facility]. METABOLIC PANEL (49663)2020-07-10 06:33:53 Test Item Value Reference Range Interpretation Comments NA (test code = 139 mmol/L 135-145 7260517068) K (test code = 3.7 mmol/L 3.5-5.0 4073604691) CL (test code = 102 mmol/L 98-108 3464900200) CO2 TOTAL (test code = 29 mmol/L 23-31 0877505634) AGAP (test code = 2-16 1333954426) BUN (test code = 12 mg/dL 7-23 2910357164) GLUCOSE (test code = 118 mg/dL 70-110 H 3225751605) CREATININE (test code = 0.67 mg/dL 0.50-1.04 9431919189) TOTAL BILI (test code = 0.6 mg/dL 0.1-1.3 7136175715) CALCIUM (test code = 9.2 mg/dL 8.6-10.6 7614579723) T PROTEIN (test code = 7.2 g/dL 6.3-8.2 5162134468) ALBUMIN (test code = 4.6 g/dL 3.5-5.0 9050830019) ALK PHOS (test code = 168 U/L 34-122 H 8771198814) ALTv (test code = 111 U/L 5-35 H 1742-6) AST(SGOT) (test code = 30 U/L 13-40 4517140508) eGFR Calculation mL/min/1.73m2 (Non-) (test code = 3854607105) eGFR Calculation mL/min/1.73m2 () (test code = 4942432035) TRISTON (test code = TRISTON) Association of [...] tests). Lab Interpretation Abnormal (test code = 63786-1) [facility] 06:33:18 Test Item Value Reference Range Interpretation Comments LIPASE (test code = 1332709819) 85 U/L 0-220 Lab Interpretation (test code = Normal 04781-2) [facility] WITH HQKI2022-72-10 06:24:16 Test Item Value Reference Range Interpretation [...] RDW-SD (test code = 43.1 fL 39.0-49.9 25202-6) RDW-CV (test code = 12.6 % 12.0-15.5 788-0) PLT (test code = See_Comment [Automated 777-3) message] The sy stem which generated this result transmitted reference range : 166 - 358 10*3/ ?L. The reference r dejuan was not used to interpret this result as normal/abnormal . MPV (test code = 10.1 fL 9.5-12.9 30848-5) NRBC/100 WBC (test See_Comment [Automat ed code = 6598278647) message] The system which generated this result transmitted reference range : 0.0 - 10.0 /100 WBCs. The refer ence range was not u sed to interpret th is result as normal/abnormal . NRBC x10^3 (test code <0.01 See_Comment [Auto mated = 8437412404) message] The s ystem which generated this result transmitted reference range : 10*3/?L. The reference range was not used to interpret this result as normal/abnormal . GRAN MAT (NEUT) % 83.3 % (test code = 770-8) IMM GRAN % (test code 0.30 % = 8510224432) LYMPH % (test code = 12.4 % 736-9) MONO % (test code = 2.8 % 5905-5) EOS % (test code = 0.8 % 713-8) BASO % (test code = 0.4 % 706-2) GRAN MAT x10^3(ANC) 9.80 10*3/uL 1.88-7.09 H (test code = 4700593422) IMM GRAN x10^3 (test 0.04 10*3/uL 0.00-0.06 code = 5026591202) LYMPH x10^3 (test code 1.46 10*3/uL 1.32-3.29 = 731-0) MONO x10^3 (test code 0.33 10*3/uL 0.33-0.92 = 742-7) EOS x10^3 (test code = 0.09 10*3/uL 0.03-0.39 711-2) BASO x10^3 (test code 0.05 10*3/uL 0.01-0.07 = 704-7) Lab Interpretation Abnormal (test code = 01656-8) [facility] [id number] 06:00:00 Test Item Value Reference Range Interpretation Comments POCT PREG (test code = 1605) negative On board controls acceptable with present C Line (test code = 3574) POCT PREG LOT # (test code = 3575) [id number] POCT PREG TEST DATE (test 2022-02-24 code = 3576) Lab Interpretation (test code = Normal 03435-2) [facility] [id number] 22:58:00 Test Item Value Reference Range Interpretation Comments POCT PREG (test code = 1605) Negative On board controls acceptable with C Yes Line (test code = 3574) POCT PREG LOT # (test code = 3575) POCT PREG TEST DATE (test code = 3576) Lab Interpretation (test code = Normal 01189-9) [facility] [id number] 22:58:00 Test Item Value Reference Range Interpretation Comments POCT PREG (test code = 1605) Negative On board controls acceptable with C Yes Line (test code = 3574) POCT PREG LOT # (test code = 3575) POCT PREG TEST DATE (test code = 3576) Lab Interpretation (test code = Normal 39997-5) [facility] [id number] 22:58:00 Test Item Value Reference Range Interpretation Comments POCT PREG (test code = 1605) Negative On board controls acceptable with C Yes Line (test code = 3574) POCT PREG LOT # (test code = 3575) POCT PREG TEST DATE (test code = 3576) Lab Interpretation (test code = Normal 07404-7) [facility] [id number] 22:58:00 Test Item Value Reference Range Interpretation Comments POCT PREG (test code = 1605) Negative On board controls acceptable with C Yes Line (test code = 3574) POCT PREG LOT # (test code = 3575) POCT PREG TEST DATE (test code = 3576) Lab Interpretation (test code = Normal 34976-0) [facility] Temple[facility] Function Panel (ALB, T.PRO, BILI T, BU/BC, ALT, AST, ALK PHOS)2020-05-18 08:40:00 Test Item Value Reference Range Interpretation Comments TOTAL BILI (test code = 4228650948) 0.5 mg/dL 0.1-1.1 BILI UNCON (test code = 8343888728) 0.3 mg/dL 0.1-1.1 BILI CONJ (test code = 4242362264) 0.0 mg/dL 0-0.3 T PROTEIN (test code = 2016806311) 6.9 g/dL 6.3-8.2 ALBUMIN (test code = 9928655495) 4.0 g/dL 3.5-5 ALK PHOS (test code = 7670545602) 188 U/L 34-122 H ALTv (test code = 1742-6) 228 U/L 5-35 H AST(SGOT) (test code = 9080172975) 104 U/L 13-40 H Lab Interpretation (test code = Abnormal 27245-6) [facility] (ALB, T.PRO, BILI T, BU/BC, ALT, AST, ALK PHOS)2020-05-18 08:40:00 Test Item Value Reference Range Interpretation Comments TOTAL BILI (test code = 3793093203) 0.5 mg/dL 0.1-1.1 BILI UNCON (test code = 1577448548) 0.3 mg/dL 0.1-1.1 BILI CONJ (test code = 4297499312) 0.0 mg/dL 0-0.3 T PROTEIN (test code = 9408816412) 6.9 g/dL 6.3-8.2 ALBUMIN (test code = 3900653339) 4.0 g/dL 3.5-5 ALK PHOS (test code = 7353695761) 188 U/L 34-122 H ALTv (test code = 1742-6) 228 U/L 5-35 H AST(SGOT) (test code = 8007022242) 104 U/L 13-40 H Lab Interpretation (test code = Abnormal 40148-9) [facility] Temple[facility] Metabolic Panel (NA, K, CL, CO2, GLUCOSE, BUN, CREATININE, CA)2020-05-18 08:39:00 Test Item Value Reference Range Interpretation Comments NA (test code = 138 mmol/L 135-145 4159691331) K (test code = 3.9 mmol/L 3.5-5 9031031060) CL (test code = 105 mmol/L 98-108 9122413613) CO2 TOTAL (test code = 24 mmol/L 23-31 5383518158) AGAP (test code = 2-16 4405452687) BUN (test code = 13 mg/dL 7-23 3907575099) GLUCOSE (test code = 103 mg/dL 70-110 0727813668) CREATININE (test code 0.78 mg/dL 0.5-1.04 = 8493537701) CALCIUM (test code = 8.9 mg/dL 8.6-10.6 5764630029) eGFR Calculation mL/min/1.73m2 (Non-) (test code = 4877007635) eGFR Calculation mL/min/1.73m2 () (test code = 4540596560) TRISTON (test code = TRISTON) Association of [...] [facility] Temple[facility]ase [id number] 08:39:00 Test Item Value Reference Range Interpretation Comments LIPASE (test code = 0577934840) 108 U/L 0-220 Lab Interpretation (test code = Normal 06571-9) [facility] TempleTroponin [id number] 08:39:00 Test Item Value Reference Range Interpretation Comments TROPONIN I (test <0.012 See_Comment [Automated code = 3254229134) message] The system which generated this result [...] ? Lab Interpretation Normal (test code = 65822-2) [facility] TempleBasi Metabolic Panel (NA, K, CL, CO2, GLUCOSE, BUN, CREATININE, CA)2020-05-18 08:39:00 Test Item Value Reference Range Interpretation Comments NA (test code = 138 mmol/L 135-145 3419539658) K (test code = 3.9 mmol/L 3.5-5 5091027465) CL (test code = 105 mmol/L 98-108 8596291151) CO2 TOTAL (test code = 24 mmol/L 23-31 1263666066) AGAP (test code = 2-16 1983171750) BUN (test code = 13 mg/dL 7-23 7183095847) GLUCOSE (test code = 103 mg/dL 70-110 9446208085) CREATININE (test code 0.78 mg/dL 0.5-1.04 = 6098126666) CALCIUM (test code = 8.9 mg/dL 8.6-10.6 3419811673) eGFR Calculation mL/min/1.73m2 (Non-) (test code = 0591437501) eGFR Calculation mL/min/1.73m2 () (test code = 3118327416) TRISTON (test code = TRISTON) Association of [...] [facility] TempleLipase [id number] 08:39:00 Test Item Value Reference Range Interpretation Comments LIPASE (test code = 3963758769) 108 U/L 0-220 Lab Interpretation (test code = Normal 61953-5) [facility] TempleTroponin [id number] 08:39:00 Test Item Value Reference Range Interpretation Comments TROPONIN I (test <0.012 See_Comment [Automated code = 7157832566) message] The system which generated this result [...] ? Lab Interpretation Normal (test code = 73691-7) [facility] with [id number] 08:09:00 Test Item Value Reference Range Interpretation Comments WBC (test code = See_Comment H [Automated 5190-2) message] The sy stem which generated this result transmitted reference range : 4.30 - 11.10 10*3/?L. The reference range was not used to interpret this result as normal/abnormal . RBC (test code = See_Comment [Automated 509-8) message] The sy stem which generated this [...] RDW-SD (test code = 40.8 fL 39-49.9 28005-5) RDW-CV (test code = 11.9 % 12-15.5 L 788-0) PLT (test code = See_Comment [Automated 777-3) message] The sy stem which generated this result transmitted reference range : 166 - 358 10*3/ ?L. The reference r dejuan was not used to interpret this result as normal/abnormal . MPV (test code = 12.2 fL 9.5-12.9 99378-1) NRBC/100 WBC (test See_Comment [Automat ed code = 9892421415) message] The system which generated this result transmitted reference range : 0.0 - 10.0 /100 WBCs. The refer ence range was not u sed to interpret th is result as normal/abnormal . NRBC x10^3 (test code <0.01 See_Comment [Auto mated = 5994954259) message] The s ystem which generated this result transmitted reference range : 10*3/?L. The reference range was not used to interpret this result as normal/abnormal . GRAN MAT (NEUT) % 73.1 % (test code = 770-8) IMM GRAN % (test code 0.40 % = 5057656524) LYMPH % (test code = 20.3 % 736-9) MONO % (test code = 3.7 % 5905-5) EOS % (test code = 2.1 % 713-8) BASO % (test code = 0.4 % 706-2) GRAN MAT x10^3(ANC) 8.18 10*3/uL 1.88-7.09 H (test code = 1226700371) IMM GRAN x10^3 (test 0.05 10*3/uL 0-0.06 code = 0910343715) LYMPH x10^3 (test code 2.28 10*3/uL 1.32-3.29 = 731-0) MONO x10^3 (test code 0.42 10*3/uL 0.33-0.92 = 742-7) EOS x10^3 (test code = 0.23 10*3/uL 0.03-0.39 711-2) BASO x10^3 (test code 0.05 10*3/uL 0.01-0.07 = 704-7) Lab Interpretation Abnormal (test code = 62353-4) [facility] with [id number] 08:09:00 Test Item Value Reference Range Interpretation Comments WBC (test code = See_Comment H [Automated 2490-2) message] The sy stem which generated this [...] RDW-SD (test code = 40.8 fL 39-49.9 52265-7) RDW-CV (test code = 11.9 % 12-15.5 L 788-0) PLT (test code = See_Comment [Automated 777-3) message] The sy stem which generated this result transmitted reference range : 166 - 358 10*3/ ?L. The reference r dejuan was not used to interpret this result as normal/abnormal . MPV (test code = 12.2 fL 9.5-12.9 26390-7) NRBC/100 WBC (test See_Comment [Automat ed code = 9377374787) message] The system which generated this result transmitted reference range : 0.0 - 10.0 /100 WBCs. The refer ence range was not u sed to interpret th is result as normal/abnormal . NRBC x10^3 (test code <0.01 See_Comment [Auto mated = 2011405149) message] The s ystem which generated this result transmitted reference range : 10*3/?L. The reference range was not used to interpret this result as normal/abnormal . GRAN MAT (NEUT) % 73.1 % (test code = 770-8) IMM GRAN % (test code 0.40 % = 9472629548) LYMPH % (test code = 20.3 % 736-9) MONO % (test code = 3.7 % 5905-5) EOS % (test code = 2.1 % 713-8) BASO % (test code = 0.4 % 706-2) GRAN MAT x10^3(ANC) 8.18 10*3/uL 1.88-7.09 H (test code = 4360995847) IMM GRAN x10^3 (test 0.05 10*3/uL 0-0.06 code = 5766920728) LYMPH x10^3 (test code 2.28 10*3/uL 1.32-3.29 = 731-0) MONO x10^3 (test code 0.42 10*3/uL 0.33-0.92 = 742-7) EOS x10^3 (test code = 0.23 10*3/uL 0.03-0.39 711-2) BASO x10^3 (test code 0.05 10*3/uL 0.01-0.07 = 704-7) Lab Interpretation Abnormal (test code = 33801-2) [facility] Temple[facility]OP[facility]YS[facility] PROFILE WITH NON-STRESS TEST 2020-04-18 19:57:52NST: 130, moderate variability, +accels, no decelsBPP 10/10Toco: quiescentUnB[facility] IrvingPOCT URINALYSIS W/O SPECIFIC [id number] 01:12:00 Test Item Value Reference Range Interpretation [...] [facility] TempleFETAL NON-STRESS [id number] 01:04:39 Reactive and reassuringToco quiescent Ladonna Leyva MD ?04/16/2020 ?7:04 PM [facility] NON-STRESS [id number] 01:37:59 Reactive and reassuringToco quiescent Ladonna Leyva MD ?04/12/2020 ?7:37 PM [facility] NON-STRESS [id number] 22:01:18 Re[facility] and [facility] [id number] 22:09:20NST reactive and reassuringUnCommunity Hospital NON-STRESS [id number] 22:09:20NST reactive and reassuring [facility] NON-STRESS [id number] 22:07:24 Reactive and reassuringToco quiescent Ladonna Leyva MD ?03/21/2020 ?4:07 PM [facility] Temple[facility]SENT TO CONTACT FOR VOLUNTARY RESEARCH 2019-12-06 16:09:25 Test Item Value Reference Range Interpretation Comments Consent To Contact For Voluntary Yes Research (test code = 4947) [facility] Temple[facility]INALYSIS2020-08-03 23:39:00 Test Item Value Reference Range Interpretation Comments APPEARANCE (test code = Hazy Clear A 5205506170) COLOR (test code = Yellow Yellow 5716610117) PH (test code = 4.8-8.0 0372193197) SP GRAVITY (test code = 1.003-1.030 0835203561) GLU U QUAL (test code = Normal Normal 6105387206) BLOOD (test code = Negative Negative 8083612248) KETONES (test code = 5 mg/dL Negative A 5478326895) PROTEIN (test code = Negative Negative 2887-8) UROBILIN (test code = Normal Normal 7178427473) BILIRUBIN (test code = Negative Negative 9734917107) NITRITE (test code = Negative Negative 9425067303) LEUK VAHID (test code = Negative Negative 1919108890) RBC/HPF (test code = See_Comment [Autom ated message] 4146825503) The system Flash Auto Detailing generated this result transmitted ref erence range: 0 - 3 HP F. The reference range was not used to int erpret this result as normal/abnormal . WBC/HPF (test code = See_Comment [Autom ated message] 0482808960) The system Flash Auto Detailing generated this result transmitted ref erence range: 0 - 5 HP F. The reference range was not used to int erpret this result as normal/abnormal . BACTERIA (test code = Moderate Negative A 8764695764) MUCOUS (test code = Slight Negative LPF A 2319635279) SQ EPITH (test code = HPF 3267807618) Lab Interpretation (test Abnormal code = 61869-4) [facility]. METABOLIC PANEL (65733)2019-11-28 22:30:00 Test Item Value Reference Range Interpretation Comments NA (test code = 133 mmol/L 135-145 L 3373321911) K (test code = 3.8 mmol/L 3.5-5 9353043026) CL (test code = 107 mmol/L 98-108 5480702547) CO2 TOTAL (test code = 23 mmol/L 23-31 2982755254) AGAP (test code = 2-16 2943989175) BUN (test code = 2 mg/dL 7-23 L 6187362484) GLUCOSE (test code = 81 mg/dL 70-110 8541094250) CREATININE (test code = 0.34 mg/dL 0.5-1.04 L 4052804451) TOTAL BILI (test code = 0.6 mg/dL 0.1-1.4 0678745455) CALCIUM (test code = 9.0 mg/dL 8.6-10.6 3918206584) T PROTEIN (test code = 6.2 g/dL 6.3-8.2 L 3003773331) ALBUMIN (test code = 3.2 g/dL 3.5-5 L 9914320595) ALK PHOS (test code = 82 U/L 34-122 5688257810) ALTv (test code = 12 U/L 5-35 1742-6) AST(SGOT) (test code = 17 U/L 13-40 8082826998) eGFR Calculation mL/min/1.73m2 (Non-) (test code = 0289679815) eGFR Calculation mL/min/1.73m2 () (test code = 3147124379) TRISTON (test code = TRISTON) Association of [...] tests). Lab Interpretation Abnormal (test code = 55464-9) [facility] WITH [id number] 21:54:00 Test Item Value Reference Range Interpretation Comments WBC (test code = See_Comment H [Automated 2053-2) message] The sy stem which generated this result transmitted reference range : 4.30 - 11.10 10*3/?L. The reference range was not used to interpret this result as normal/abnormal . RBC (test code = See_Comment [Automated 711-8) message] The sy stem which generated this [...] RDW-SD (test code = 39.8 fL 39-49.9 31756-8) RDW-CV (test code = 12.0 % 12-15.5 788-0) PLT (test code = See_Comment [Automated 777-3) message] The sy stem which generated this result transmitted reference range : 166 - 358 10*3/ ?L. The reference r dejuan was not used to interpret this result as normal/abnormal . MPV (test code = 11.1 fL 9.5-12.9 60400-8) NRBC/100 WBC (test See_Comment [Automat ed code = 1842412255) message] The system which generated this result transmitted reference range : 0.0 - 10.0 /100 WBCs. The refer ence range was not u sed to interpret th is result as normal/abnormal . NRBC x10^3 (test code <0.01 See_Comment [Auto mated = [id number]) message] The s ystem which generated this result transmitted reference range : 10*3/?L. The reference range was not used to interpret this result as normal/abnormal . GRAN MAT (NEUT) % 78.1 % (test code = 770-8) IMM GRAN % (test code 0.60 % = 2967010181) LYMPH % (test code = 14.5 % 736-9) MONO % (test code = 4.8 % 5905-5) EOS % (test code = 1.7 % 713-8) BASO % (test code = 0.3 % 706-2) GRAN MAT x10^3(ANC) 8.84 10*3/uL 1.88-7.09 H (test code = 7787237384) IMM GRAN x10^3 (test 0.07 10*3/uL 0-0.06 H code = 5629490265) LYMPH x10^3 (test code 1.64 10*3/uL 1.32-3.29 = 731-0) MONO x10^3 (test code 0.54 10*3/uL 0.33-0.92 = 742-7) EOS x10^3 (test code = 0.19 10*3/uL 0.03-0.39 711-2) BASO x10^3 (test code 0.03 10*3/uL 0.01-0.07 = 704-7) Lab Interpretation Abnormal (test code = 89218-6) [facility] URINALYSIS W/O SPECIFIC [id number] 14:11:00 Test Item Value Reference Range Interpretation [...] code = 3257) Neg Negative - Negative [facility] URINALYSIS W/O SPECIFIC [id number] 14:11:00 Test Item Value Reference Range Interpretation [...] code = 3257) Neg Negative - Negative [facility] [id number] 14:10:00 Test Item Value Reference Range Interpretation Comments POCT PREG (test code = 1605) Positive On board controls acceptable with C Yes Line (test code = 3574) POCT PREG LOT # (test code = 3575) POCT PREG TEST DATE (test code = 3576) [facility] [id number] 14:10:00 Test Item Value Reference Range Interpretation Comments POCT PREG (test code = 1605) Positive On board controls acceptable with C Yes Line (test code = 3574) POCT PREG LOT # (test code = 3575) POCT PREG TEST DATE (test code = 3576) [facility]2 [id number] 16:26:00 Test Item Value Reference Range Interpretation Comments HIV-1 ANTIGEN WITH HIV 1\\T\\2 Nonreactive Nonreactive ANTIBODY (2) (BEAKER) (test code = 2586) BASIC METABOLIC [id number] 06:30:00 Test Item Value Reference Range Interpretation [...] m DATA TO CALCULA TE ESTIMATED GFR. [id number] 06:19:00 Test Item Value Reference Range Interpretation Comments PHOSPHORUS (BEAKER) (test code = 1.9 mg/dL 2.3-4.7 L 604) [id number] 06:19:00 Test Item Value Reference Range Interpretation Comments MAGNESIUM (BEAKER) (test code = 1.8 mg/dL 1.6-2.6 627) HEPATIC FUNCTION [id number] 06:19:00 Test Item Value Reference Range Interpretation [...] 6-55 347) CBC W/PLT COUNT & AUTO [id number] 06:11:00 Test Item Value Reference Range Interpretation [...] (BEAKER) (test code = 2801) BASIC METABOLIC [id number] 10:11:00 Test Item Value Reference Range Interpretation [...] m DATA TO CALCULA TE ESTIMATED GFR. [id number] 09:56:00 Test Item Value Reference Range Interpretation Comments PHOSPHORUS (BEAKER) (test code = 1.6 mg/dL 2.3-4.7 L 604) [id number] 09:56:00 Test Item Value Reference Range Interpretation Comments MAGNESIUM (BEAKER) (test code = 2.0 mg/dL 1.6-2.6 627) HEPATIC FUNCTION [id number] 09:56:00 Test Item Value Reference Range Interpretation [...] 6-55 347) CBC W/PLT COUNT & AUTO [id number] 09:53:00 Test Item Value Reference Range Interpretation [...]
[2021-10-19] MEDS ORDERED: ONDANSETRON 4 MG/2 ML VIAL ONE (09:51)
[2021-10-19] MEDS ORDERED: NA CHLORIDE 0.9% 1,000 ML ONE (09:51)
[2021-10-19] MEDS ORDERED: MORPHINE 4 MG/ML SYR ONE ×2 (09:51→13:41)
[2021-10-19 10:22] LABS: Absolute Lymphocytes (CBC) 1.5 K/uL (0.7-4.9); Hematocrit 35.1 % (36.0-45.0); Lymphocytes % 12.6 % (15.3-44.8); MPV 8.4 fL (7.6-11.3); RBC Red Blood Cell Count 3.81 M/uL (3.86-4.86)
[2021-10-19 10:56] LABS: Potassium 3.9 mmol/L (3.5-5.1)
--- NOTE | 2021-10-19 12:25 | RAD REPORT ---
EXAM DESCRIPTION: US - OB Limited - 10/19/2021 12:10 pm CLINICAL HISTORY: ABD CRAMPING, COMPARISON: Transvaginal OB dated 09/26/2019; 1St Trimest Single 1St Fetus dated 09/27/2021 FINDINGS: No gestational sac identified. The uterus measures 11 cm in long axis. The right ovary measures 3.6 cm x 2 cm x 2.7 cm with volume of 10 cc. The left ovary measures 3.3 cm x 1.5 cm x 2.1 cm with volume of 5.4 cc. Bilateral ovarian blood flow is present. No free fluid. IMPRESSION: No IUP identified. No significant change compared with 09/27/21. Bilateral ovarian blood flow.
--- NOTE | 2021-10-19 13:59 | RAD REPORT ---
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 All CT scans are performed using dose optimization technique as appropriate and may include automated exposure control or mA/KV adjustment according to patient size. FINDINGS: Lower chest: No acute abnormality. Liver: No acute abnormality or suspicious lesions. Biliary: Cholecystectomy Stomach: No significant focal abnormality. Duodenum: No significant focal abnormality. Pancreas: No significant abnormality. Spleen: No significant abnormality. Adrenal: No suspicious lesions. Kidney/ureter: No hydronephrosis. No renal calculi. Retroperitoneum: No retroperitoneal adenopathy. Vascular: No aneurysm. Bowel: No significant focal abnormality. Appendectomy Peritoneum: No ascites or free air. Bladder: Grossly unremarkable. Reproductive: Heterogeneous enhancement at the uterus which is nonspecific by CT. This is better asse ssed on the pelvic ultrasound. Bones: No acute fracture. Mild disc height loss at L5-S1. Other: n/a IMPRESSION: No acute intra-abdominal or pelvic finding.
--- NOTE | 2021-10-19 15:28 | EDPHYS ---
Physician Documentation [facility] Name: Elle Man Age: 31 yrs Sex: Female : 1990 Arrival Date: 10/19/2021 Time: 09:12 Bed 18 Private MD: ED Physician Yasmeen Almazan HPI: 10/19 09:58 This 31 yrs old Female presents to ER via Wheelchair with complaints of ma2 Vaginal Bleeding, Pelvic Pain, Abdominal Cramping. 09:58 Associated signs and symptoms: Pertinent negatives: cramping, dysuria, hematuria, ma2 vaginal bleeding. This is a healthy 31-year-old female who had miscarriage on September 28, had bleeding for a day, that resolved and presents with vaginal bleeding that started again today this morning, patient has not had any bleeding from September 29 until the yesterday, denies abdominal pain no vomiting diarrhea fever, no urinary symptom. Never had surgeries before.. 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 - Social history:: Smoking status: Patient denies any tobacco usage or history of. - Family history:: not pertinent. ROS: 09:58 Negative for ma2 09:58 Constitutional: Negative for fever, chills, and weight loss. 09:58 All other systems are negative. Exam: 09:58 Constitutional: This is a well developed, well nourished patient who is awake, alert, ma2 and in no acute distress. Chest/axilla: Normal chest wall appearance and motion. Nontender with no deformity. No lesions are appreciated. Cardiovascular: Regular rate and rhythm with a normal S1 and S2. No gallops, murmurs, or rubs. Normal PMI, no JVD. No pulse deficits. Respiratory: Lungs have equal breath sounds bilaterally, clear to auscultation and percussion. No rales, rhonchi or wheezes noted. No increased work of breathing, no retractions or nasal flaring. Abdomen/GI: Soft, non-tender, with normal bowel sounds. No distension or tympany. No guarding or rebound. No evidence of tenderness throughout. Back: No spinal tenderness. No costovertebral tenderness. Full range of motion. Skin: Warm, dry with normal turgor. Normal color with no rashes, no lesions, and no evidence of cellulitis. MS/ Extremity: Pulses equal, no cyanosis. Neurovascular intact. Full, normal range of motion. Neuro: Awake and alert, GCS 15, oriented to person, place, time, and situation. Cranial nerves II-XII grossly intact. Motor strength 5/5 in all extremities. Sensory grossly intact. Cerebellar exam normal. Normal gait. Vital Signs: 09:35 BP 103 / 87; Pulse 149; Resp 17 S; Temp 96.9; Pulse Ox 97% on R/A; Weight 99.79 kg; jl7 Height 5 ft. 11 in. (180.34 cm); Pain 10/10; 10:45 BP 142 / 73; Pulse 130; Resp 22; Pulse Ox 99% on R/A; ww 11:00 BP 126 / 81; Pulse 124; Resp 23; Pulse Ox 99% ; ww 13:08 BP 110 / 71; Pulse 113; Resp 24; Pulse Ox 100% ; ww 14:26 BP 116 / 84; Pulse 107; Resp 15; Pulse Ox 100% on R/A; ww 15:40 BP 114 / 68; Pulse 102; Resp 15 S; Pulse Ox 100% on R/A; jd3 09:35 Body Mass Index 30.68 (99.79 kg, 180.34 cm) jl7 MDM: 09:51 Patient medically screened. ma2 09:58 Differential diagnosis: menorrhea, ovarian cyst, hemorrhage, urinary tract ma2 infection, vaginosis. 13:54 Data reviewed: vital signs, nurses notes. Counseling: I had a detailed discussion with ma2 the patient and/or guardian regarding: the historical points, exam findings, and any diagnostic results supporting the discharge/admit diagnosis, the presence of at least one elevated blood pressure reading (>120/80) during this emergency department visit, the need for outpatient follow up. Response to treatment: the patient's symptoms have markedly improved after treatment. ED course: Lab work shows beta-hCG 1200, ultrasound with no IUP. Reviewing the chart, patient presented on September 28 with beta-hCG of 36,000 with no IUP on ultrasound. This is concerning for ectopic , in the presence of abdominal pain and active vaginal bleeding. although hCG is trending down, patient needs emergent gynecology evaluation and DIC. I discussed this case with Dr. Prieto personnel quality assurance auditor at 1:30 PM and he will come and see the patient in the ER.. 15:24 ED course: Dr. Prieto came and saw and examined the patient. he advised that he can ma2 follow-up as an outpatient with Dr. Glez, in 2 days for beta-hCG repeat. According to him there is no concern for ectopic at this time as beta-hCG is trending down. No active bleeding on his exam. 10/19 09:36 Order name: Abo/rh Typing; Complete Time: 12:39 or2 10/19 09:36 Order name: Basic Metabolic Panel; Complete Time: 12:39 or2 10/19 09:36 Order name: CBC with Diff; Complete Time: 10:31 ma2 10/19 09:36 Order name: Quantitative Hcg; Complete Time: 12:39 or2 10/19 11:58 Order name: OB Limited; Complete Time: 12:39 EDIL 10/19 09:36 Order name: IV Saline Lock; Complete Time: 10:34 or2 10/19 09:36 Order name: Labs collected and sent; Complete Time: 10:34 or2 10/19 11:59 Order name: TRANSVAG OB EDMS 10/19 13:07 Order name: CT Abd/Pelvis - IV Contrast Only; Complete Time: 15:30 or2 10/19 09:36 Order name: NPO; Complete Time: 10:34 or2 10/19 13:05 Order name: Vital Signs; Complete Time: 13:08 ma2 Administered Medications: 10:20 Drug: morphine 4 mg Route: IVP; Infused Over: 4 mins; Site: right antecubital; ww 10:33 Drug: NS 0.9% 1000 ml Route: IV; Rate: 1 bolus; Site: right antecubital; ww 10:34 Drug: Zofran (Ondansetron) 4 mg Route: IVP; Site: right antecubital; ww 13:39 Drug: morphine 4 mg Route: IVP; Infused Over: 4 mins; Site: left antecubital; ww Disposition Summary: 10/19/21 15:43 Discharge Ordered Location: Home(10/19/21 15:43) ma2 Condition: Stable(10/19/21 15:43) ma2 Diagnosis - Incomplete spontaneous without complication(10/19/21 15:43) ma2 Followup: ma2 - With: Private Physician - When: Tomorrow - Reason: Recheck today's complaints Discharge Instructions: - Discharge Summary Sheet ma2 - Incomplete Miscarriage ma2 Forms: - Medication Reconciliation Form ma2 - Thank You Letter ma2 - Antibiotic Education ma2 - Prescription Opioid Use ma2 Signatures: Dispatcher [employer] EDMS Jeff Fowler RN RN jl7 Yasmeen Almazan MD MD ma2 Dari Manning RN RN ww Corrections: (The following items were deleted from the chart) 11:58 09:58 OB Complete+US.RAD.BRZ ordered. EDMS EDMS 15:41 15:28 Home ma2 jd3 15:41 15:28 Stable ma2 jd3 15:41 15:28 Incomplete spontaneous without complication ma2 jd3
--- NOTE | 2021-10-19 15:28 | ER ---
Nurse's Notes [facility] Name: Elle Man Age: 31 yrs Sex: Female : 1990 Arrival Date: 10/19/2021 Time: 09:12 Bed 18 Private MD: Diagnosis: Incomplete spontaneous without complication Presentation: 10/19 09:35 Chief complaint: Patient states: Miscarriage 2 weeks ago, spotting for 2 weeks, woke jl7 this morning with heavy bleeding, large clots and severe cramping. Coronavirus screen: At this time, the client does not indicate any symptoms associated with coronavirus-19. Ebola Screen: No symptoms or risks identified at this time. Initial Sepsis Screen: Does the patient meet any 2 criteria? No. Patient's initial sepsis screen is negative. Does the patient have a suspected source of infection? No. Patient's initial sepsis screen is negative. Risk Assessment: Do you want to hurt yourself or someone else? Patient reports no desire to harm self or others. Onset of symptoms was October 19, 2021. 09:35 Method Of Arrival: Wheelchair [facility] 09:35 Acuity: LAY[place] 3 jl7 Triage Assessment: 09:38 General: Appears in no apparent distress. uncomfortable, Behavior is cooperative, jl7 anxious. Pain: Complains of pain in abdomen Pain currently is 10 out of 10 on a pain scale. : Reports vaginal bleeding that is bright red, with clots, heavy flow. 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 - Social history:: Smoking status: Patient denies any tobacco usage or history of. - Family history:: not pertinent. Screenin:37 Abuse screen: Denies threats or abuse. Denies injuries from another. Nutritional ww screening: No deficits noted. Tuberculosis screening: No symptoms or risk factors identified. Fall Risk None identified. Assessment: 10:35 General: Appears uncomfortable, Behavior is calm, cooperative. Pain: Complains of pain ww in suprapubic area. Neuro: Level of Consciousness is awake, alert, obeys commands, Oriented to person, place, time, situation, Moves all extremities. Speech is normal. Cardiovascular: Capillary refill < 3 seconds Patient's skin is warm and dry. Rhythm is sinus tachycardia Chest pain is denied. Respiratory: Airway is patent Respiratory effort is even, unlabored, Respiratory pattern is regular, symmetrical. GI: Abdomen is non-distended, Abdomen is tender to palpation in suprapubic area Reports lower abdominal pain, cramping. : Reports vaginal bleeding that is heavy flow. Derm: No signs and/or symptoms reported regarding the dermatologic system. Skin is intact, is healthy with good turgor, Skin is dry, Skin is pale. 11:30 Reassessment: Patient appears in no apparent distress at this time. No changes from ww previously documented assessment. Patient and/or family updated on plan of care and expected duration. Pain level reassessed. Patient is alert, oriented x 3, equal unlabored respirations, skin warm/dry/pink. 12:30 Reassessment: Patient appears in no apparent distress at this time. No changes from ww previously documented assessment. Patient and/or family updated on plan of care and expected duration. Pain level reassessed. Patient is alert, oriented x 3, equal unlabored respirations, skin warm/dry/pink. ultrasound at bedside. 13:25 Reassessment: Patient appears in no apparent distress at this time. No changes from ww previously documented assessment. Patient and/or family updated on plan of care and expected duration. Pain level reassessed. Patient is alert, oriented x 3, equal unlabored respirations, skin warm/dry/pink. patient compliaining of pain and cramping. Dr. Almazan notified and Morphine 4mg IV once ordered. 14:25 Reassessment: Patient appears in no apparent distress at this time. No changes from ww previously documented assessment. Patient and/or family updated on plan of care and expected duration. Pain level reassessed. Patient is alert, oriented x 3, equal unlabored respirations, skin warm/dry/pink. 14:41 Reassessment: Dr. Prieto at bedside. ww 15:41 Reassessment: Patient appears in no apparent distress at this time. Patient and/or jd3 family updated on plan of care and expected duration. Pain level reassessed. Patient is alert, oriented x 3, equal unlabored respirations, skin warm/dry/pink. Patient states feeling better. Vital Signs: 09:35 BP 103 / 87; Pulse 149; Resp 17 S; Temp 96.9; Pulse Ox 97% on R/A; Weight 99.79 kg; jl7 Height 5 ft. 11 in. (180.34 cm); Pain 10/10; 10:45 BP 142 / 73; Pulse 130; Resp 22; Pulse Ox 99% on R/A; ww 11:00 BP 126 / 81; Pulse 124; Resp 23; Pulse Ox 99% ; ww 13:08 BP 110 / 71; Pulse 113; Resp 24; Pulse Ox 100% ; ww 14:26 BP 116 / 84; Pulse 107; Resp 15; Pulse Ox 100% on R/A; ww 15:40 BP 114 / 68; Pulse 102; Resp 15 S; Pulse Ox 100% on R/A; jd3 09:35 Body Mass Index 30.68 (99.79 kg, 180.34 cm) 7 ED Course: 09:12 Patient arrived in ED. as 09:35 Yasmeen Almazan MD is Attending Physician. ma2 09:38 Triage completed. jl7 09:38 Arm band placed on right wrist. jl7 09:55 Dari Manning, RN is Primary Nurse. ww 10:16 Accessed peripheral vein via ultrasound, utilizing dynamic ultrasound technique using jd3 20G Nexia IV catheter ,sterile technique, per hospital protocol. Clean \T\ dry. Dressing intact. Good blood return. Flushes easily. 10:37 Patient has correct armband on for positive identification. Bed in low position. Call ww light in reach. Side rails up X 1. Adult w/ patient. Client placed on continuous cardiac and pulse oximetry monitoring. NIBP monitoring applied. 12:03 OB Limited In Process Unspecified. EDMS 12:03 TRANSVAG OB In Process Unspecified. EDMS 13:10 called and left message for Dr. Prieto at [phone] Almazan for a patient eb consult. 13:50 CT Abd/Pelvis - IV Contrast Only In Process Unspecified. EDMS 13:[address] Prieto with Dr. Almazan for patient consultation. eb 15:27 Mukesh Glez MD is Referral Physician. ma2 15:41 No provider procedures requiring assistance completed. IV discontinued, intact, jd3 bleeding controlled, No redness/swelling at site. Pressure dressing applied. Administered Medications: 10:20 Drug: morphine 4 mg Route: IVP; Infused Over: 4 mins; Site: right antecubital; ww 10:33 Drug: NS 0.9% 1000 ml Route: IV; Rate: 1 bolus; Site: right antecubital; ww 10:34 Drug: Zofran (Ondansetron) 4 mg Route: IVP; Site: right antecubital; ww 13:39 Drug: morphine 4 mg Route: IVP; Infused Over: 4 mins; Site: left antecubital; ww Medication: 15:41 VIS not applicable for this client. jd3 Outcome: 15:28 Discharge ordered by . ma2 15:41 Discharged to home ambulatory, with family. jd3 15:41 Condition: stable 15:41 Discharge instructions given to patient, family, Instructed on discharge instructions, follow up and referral plans. medication usage, Demonstrated understanding of instructions, follow-up care, medications, Prescriptions given X 2. 15:43 Discharge ordered by MD. nh2 15:43 Patient left the ED. jd3 Signatures: Dispatcher [employer] EDMS Aziza Pierre Jahala RN RN jl7 Jakob Turcios RN RN jYasmeen Gonzales MD MD ma2 Evelia Felipe Whitney, RN RN ww
[2021-10-19 16:01] VITALS: TEMP 96.9
[2021-10-19 16:19] VITALS: O2SAT 100
[2021-10-19 16:22] VITALS: BP 114/68
--- NOTE | 2021-10-19 18:16 | RAD REPORT ---
EXAM DESCRIPTION: US - TRANSVAG OB - 10/19/2021 12:01 pm CLINICAL HISTORY: BLEEDING COMPARISON: 1St Trimest Single 1St Fetus dated 09/27/2021; OB Limited dated 10/19/2021 FINDINGS: No gestational sac identified. The uterus measures 11 cm in long axis. The right ovary measures 3.6 cm x 2 cm x 2.7 cm with volume of 10 cc. The left ovary measures 3.3 cm x 1.5 cm x 2.1 cm with volume of 5.4 cc. Bilateral ovarian blood flow is present. No free fluid. IMPRESSION: No IUP identified. No significant change compared with 09/27/21. Bilateral ovarian blood flow.
--- NOTE | 2021-10-19 20:10 | CON ---
Date of Consultation: 10/19/2021 Final Diagnosis: Vaginal bleeding, positive hormone with a declining beta HCG from 30,000 range 2 to 3 weeks ago to current 1466. Overall stable condition. Report: Elle Man is a 31-year-old, G4, P2, living 3, white female with an unclear last menstrua l period possibly in August with the current status of acute vaginal bleeding and mid lower quadrant pel alisha cramps that require IV morphine to combat her bleeding. She reported emergency room visits 2-3 w eeks ago where [place] 22240 plus in value. Stable H and H, within normal anatomy of the pe lvic ultrasound. She was sent home with vaginal spotting and was given precaution and followup plans . The patient did not follow up and overall condition has been stable, however, things changed this morning where she experiencing more pain, severe with a passing of multiple orange size blood clots. The patient was quite concerned and came to the emergency room for re-evaluation. Her blood type is O positive. Current H and H values were 12 and 35 and with ACG of 1466 which compared to previous v alue of 30,000. Today's emergency room CT scan is showing a normal pelvis. However, it is more reli ant with ultrasound to evaluate the pelvic anatomy in the pelvic ultrasound showing a normal anatomy of the ovaries. No cul-de-sac fluid. No intrauterine and normal uterus. Her blood pressu re, vital signs were stable. I was consulted on this patient and came in the hospital and took a det jose a history. In addition to the above history, her OB history revealed a 2010 spontaneous miscarri age at 3 months, which required D and C. In 2014, the patient had a twins resulted in a C- section at 36 weeks where she gave to a boy and a girl baby. Her next was in 2019 wi th a at 39 weeks, repeat where she delivered a boy, term baby. Current last menstrual palmer od was unclear, possibly in August and only other significant history is for her to came by the emergenc y department about 2-3 weeks ago, September 28, 2021. I evaluated her in person with an abdominal examination. She is showing some very mild suprapubic te nderness, nonacute, no rebound. Pelvic; bimanual examination revealed no cervical motion tenderness and no adnexal tenderness. There is a small amount of dark blood noted on my glove and the patient was in no acute distress. Overall evaluation, clinical finding, and ultrasound report and labs were all discussed with the [place] ent. The patient was educated on the potential of D and C or laparoscope evaluation and the patient understood. At this time right now there is only an observation recommendation. I recommend her to have pain control and definitely follow up within 2 weeks with the revaluation on AcG and her clinica l condition. Very possibly her condition is related to spontaneous miscarriage. Eventually her blee ding will be subsided and the hCG will be negative. However, the patient was given a precaution that the condition was not improved or she may need a D and C or possible a surgical intervention in the future. The patient understood and has no further questions and this report was given to the emergen cy room department and the planning on sending her home in good and stable condition with a prescript ion for pain control and followup plan. JED/DENISSE Voice ID: [id number] Report ID: [id number]
== END 2021-10-19 15:43 | disposition home or self-care (01) ==
LOC: ER 09:11
DX: O03.4 Incomplete spontaneous abortion without complication (principal)
CPT/HCPCS: 85025; 80048; 36415; 86900; 86901; 84702; 74177; 76815; 76813; Q9967; J7030; J2405; 99284

== ENCOUNTER 2021-10-20 09:22 | Day surgery (SDC) | payer OTHER ==
--- OUTSIDE RECORDS SUMMARY | 2021-10-20 09:32 | XMS REPORT | Continuity of Care Document ---
:[address] [facility] t Address [address] [place] [address] Care Team Providers Name Role Phone PCP, [...] MERRITT Attending Clinician Luke Lawrence Attending Clinician [facility] Attending Clinician Unavailable Ultrasound, Mfm Attending [...] Attending Clinician Unavailable Any MERRITT Admitting Clinician Aan ZAMUDIO Admitting Clinician Unavailable Kiara MARTINES Admitting Clinician Unavailable Payers Payer Name Policy Type Policy Number Effective Date Expiration Date [facility] [id number] [address] [facility] MEDICAID 00:00:00 [facility] [id number] 2000 2021 PPO 00:00:00 00:00:00 Problems Condition Condition Condition Status Onset Resolution Last Treating Co mments Source Name Details Category Date Date Treatment Clinician Date Abdominal Abdominal Disease Active Uni vers pain pain 3-24 ity of 00:00: [place] 00 Medical Branch Symptomati Symptomati Disease Active U nivpriyanka c c 3-24 ity of cholelith[place] 00 Medical Branch 37 weeks 37 weeks Disease Active 2019-04 Unive rs gestation gestation 2-30 ity of of of 00:00: [place] 00 Medi dee Branch Polyhydram Polyhydram Disease [...] of high[place]risk [place] [facility] Obesity in Obesity in Disease Active 2020-0 U nivers 11-02 ity of 00:00: [place] 00 Medical Branch Multiparit Multiparit Disease Active 2020-0 U nivers y y 11-02 ity of 00:00: [place] 00 Medical Branch History of History of [...] 11-02 it y of e e 00:00: [place] 00 Medical Branch History of History of Disease Active Overview : Univers 11-02 Formattin ity of section section 00:00: g of this [place] note Medical might be Branch different from the original. Desires repeat Encephalit Encephalit Diagnosis Active Common is is [facility] Allergies, Adverse Reactions, Alerts Allergy Allergy Status Severity Reaction(s) Onset Inactive Treating Comm ents Source Name Type Date Date Clinician NO KNOWN Drug Active [facility] ALLERGIE Class ity of S [facility] [place] Social History Social Habit Start Date Stop Date Quantity Comments Source ASSERTION 2019-08-19 [facility] 00:00:00 [facility] Exposure to Yes [facility] SARS-CoV-2 (event) Medica l [place] Alcohol intake 2020-08-13 2020-08-13 0 /d [facility] 00:00:00 00:00:00 [facility] Tobacco use and 2015-02-01 2015-02-01 Never used [facility] exposure 00:00:00 00:00:00 [facility] Sex Ass[birth year] At [birth year] [facility] 00:00:00 00:00:00 [facility] Smoking Status Start Date Stop Date Source Never smoker [facility] Medications Ordered Filled Start Stop [...] NOW, 1 [place] 00 :00 dose, [facility] 07/19/20 at Branch 0100, Routine PARoxetine Yes [id number] 10mg Take 1 U nivers (PAXIL) 10 3-25 tablet by ity of mg tablet 00:00: mouth [place] 00 daily. Medical Branch HYDROcodone Yes [id number] 1{tbl} Take 1 Un inés -acetaminop 3-25 tablet by ity of hen 5-325 00:00: mouth [place] mg tablet 00 every 6 Medical (six) Branch hours as needed for Pain (scale 7-10). Indication s: acute pain PARoxetine Yes [id number] 10mg Take 1 U nivers (PAXIL) 10 3-25 tablet by ity of mg tablet 00:00: mouth [place] 00 daily. Medical Branch PARoxetine Yes [id number] 10mg Take 1 U nivers (PAXIL) 10 3-25 tablet by ity of mg tablet 00:00: mouth [place] 00 daily. Medical Branch HYDROcodone Yes [id number] 1{tbl} Take 1 Un inés -acetaminop 3-25 tablet by ity of hen 5-325 00:00: mouth [place] mg tablet 00 every 6 Medical (six) Branch hours as needed for Pain (scale 7-10). Indication s: acute pain PARoxetine Yes [id number] 10mg Take 1 U nivers (PAXIL) 10 3-25 tablet by ity of mg tablet 00:00: mouth [place] 00 daily. Medical Branch HYDROcodone Yes [id number] 1{tbl} Take 1 Un inés -acetaminop 3-25 tablet by ity of hen 5-325 00:00: mouth [place] mg tablet 00 every 6 Medical (six) Branch hours as needed for Pain (scale 7-10). Indication s: acute pain sennosides- 2020- No [id number] 1{tbl} Take 1 Univers docusate 3-25 04-25 tablet by ity o f sodium 00:00: 04:59 mouth [place] 8.6-50 mg 00 :00 daily for Medic al per tablet 30 days. [facility] h sennosides- 2020- No [id number] 1{tbl} Take 1 Univers docusate 3-25 04-25 tablet by ity o f sodium 00:00: 04:59 mouth [place] 8.6-50 mg 00 :00 daily for Medic al per tablet 30 days. [facility] sennosides- 2020- No [id number] 1{tbl} Take 1 Univers docusate 3-25 04-25 tablet by ity o f sodium 00:00: 04:59 mouth [place] 8.6-50 mg 00 :00 daily for Medic al per tablet 30 days. [facility] HYDROcodone 2020- No [id number] 1{tbl} Take 1 [...] 4 47 dose, Medical mg Starting Branch [facility] 07/18/20 at 1541, Until Discontinu ed, Routine, Nausea and Vomiting (N/V), PACU ondansetron 0 Yes 4mg 4 mg, Slow Univers (ZOFRAN 3-24 IV Push, ity of (PF)) 20:32: Q6HPRN, [place] injection 4 51 Starting Medi dee mg [facility] 07/18/20 at 1532, Until Discontinu ed, Routine, Nausea and Vomiting (N/V) morpHINE 0 Yes 2mg 2 mg, Slow Uni vers injection 2 3-24 IV Push, ity of mg 20:30: Q4HPRN, [place] 11 Starting Medical [facility] 07/18/20 at 1530, Until Discontinu ed, Routine, Pain (scale 7-10) HYDROcodone 2020-0 Yes 1{tbl} 1 tablet, Univers -acetaminop 3-24 Oral, ity of hen (NORCO) 20:29: Q6HPRN, [place] 10-325 mg 56 Starting Medica l tablet 1 Thu [place] tablet 07/18/20 at 1529, Until Discontinu ed, Routine, Pain (scale 4-6) sodium 2020-0 Yes PRN, Univers chloride 3-24 Starting ity of 0.9 % 20:08: Thu [place] irrigation 07/18/20 at [facility] ical solution [facility] Until Discontinu ed, Intra-op bupivacaine 2020-0 Yes PRN, [facility] s -epinephrin 324 Starting ity of e-pf 18:58: Thu [place] (SENSORCAIN 00 07/18/20 at Wi dical E 1358, [place] W/EPINEPHRI Intra-op NE) 0.25 %-1:200,000 30 mL, lidocaine 1% (PF) (XYLOCAINE) 30 mL lactated 2020-0 202- No 1000mL at 42 [facility] [place] [facility] rs ringers IV 3-24 03-24 mL/hr, ity of infusion 18:15: 18:02 1,000 mL, [place] 1,000 mL 00 :00 IV Medical Infusion, [place] ONCE, 1 dose, 07/18/20 at 1315, Routine, [...] mg 00 on Thu Medical 07/18/20 at [place] 0800, Until Discontinu ed, Routine ondansetron 2020- No 4mg 4 mg, Slow Univers (ZOFRAN 07-18 IV Push, ity of (PF)) 12:30: 11:31 ONCE, 1 [place] injection 4 00 :00 dose, Wed Med ical mg 07/18/20 at [place] 0730, Routine iohexol 2020- No [id number] 120mL 120 mL, Univers (OMNIPAQUE 07-18 Intravenou it y of 350 12:00: 12:00 s, ONCE, 1 [place] BULK-150 00 :00 dose, [facility] Medica l mL) 07/18/20 at [place] injection 0700, 120 mL Routine NaCl 0.9% 2020- No 1000mL at 999 Uni vers (NS) bolus 07-18 mL/hr, ity of infusion 11:30: 11:29 1,000 mL, [place] 1,000 mL 00 :00 IV Medical Infusion, [place] ONCE, 1 dose, 07/18/20 at 0630, STAT morpHINE No 4mg 4 mg, Slow Un inés injection 4 07-18 IV Push, ity of mg 11:23: 14:30 Q4HPRN, [place] 42 :24 Starting Medical [facility] 07/18/20 at 0623, Until Thu07/18/20 at 0930, Routine, Pain (scale 7-10) iohexol 2020- No [id number] 120mL 120 mL, Univers (OMNIPAQUE 07-1016 Intravenou it y of 350 07:15: 07:15 s, ONCE, 1 [place] BULK-150 00 :00 dose, Tue Medica l [...] ity of mg 07:00: 06:17 ONCE, 1 [place] 00 :00 dose, Tue Medical 07/10/20 at Branch 0200, STAT NaCl 0.9% 2020- No 1000mL at 999 Uni vers (NS) bolus 07-10 mL/hr, ity of infusion 06:00: 08:32 1,000 mL, [place] 1,000 mL 00 :00 IV Medical Infusion, [place] ONCE, 1 dose, 07/10/20 at 0100, TUSHAR [...] Fri Branch 06/08/20 at 0000, TUSHAR
[facility] : MARISSA NAVA cyclobenzap Yes [id number] 10mg Take 1 Univers rine 10 mg 2-11 tablet by ity of tablet 00:00: mouth 3 [place] 00 (three) Medical times Branch daily as needed for Muscle Spasms. naproxen Yes [id number] 500mg Take 1 U nivers (NAPROSYN) 2-11 tablet by ity of 500 mg 00:00: mouth 2 [place] tablet 00 (two) Medical times Branch daily with meals. cyclobenzap Yes [id number] 10mg Take 1 Univers rine 10 mg 2-11 tablet by ity of tablet 00:00: mouth 3 [place] 00 (three) Medical times Branch daily as needed for Muscle Spasms. naproxen Yes [id number] 500mg Take 1 U nivers (NAPROSYN) 2-11 tablet by ity of 500 mg 00:00: mouth 2 [place] tablet 00 (two) Medical times Branch daily with meals. cyclobenzap Yes [id number] 10mg Take 1 Univers rine 10 mg 2-11 tablet by ity of tablet 00:00: mouth 3 [place] 00 (three) Medical times Branch daily as needed for Muscle Spasms. naproxen 2020-0 Yes [id number] 500mg Take 1 U nivers (NAPROSYN) 2-11 tablet by ity of 500 mg 00:00: mouth 2 [place] tablet 00 (two) Medical times Branch daily with meals. cyclobenzap 0 Yes [id number] 10mg Take 1 Univers rine 10 mg 2-11 tablet by ity of tablet 00:00: mouth 3 [place] 00 (three) Medical times Branch daily as needed for Muscle Spasms. naproxen 2020-0 Yes [id number] 500mg Take 1 U nivers (NAPROSYN) 2-11 tablet by ity of 500 mg 00:00: mouth 2 [place] tablet 00 (two) Medical times Branch daily with meals. cyclobenzap 0 Yes [id number] 10mg Take 1 Univers rine 10 mg 2-11 tablet by ity of tablet 00:00: mouth 3 [place] 00 (three) Medical times Branch daily as needed for Muscle Spasms. naproxen 0 Yes [id number] 500mg Take 1 U nivers (NAPROSYN) 2-11 tablet by ity of 500 mg 00:00: mouth 2 [place] tablet 00 (two) Medical times Branch daily with meals. cyclobenzap 2020- No [id number] 10mg Take 1 Univers rine 10 mg 2-11 03-25 tablet by ity of tablet 00:00: 00:00 mouth 3 [place] 00 :00 (three) Medical times Branch daily as needed for Muscle Spasms. naproxen 2020- No [id number] 500mg Take 1 Univers (NAPROSYN) 2-11 03-25 tablet by ity of 500 mg 00:00: 00:00 mouth 2 [place] tablet 00 :00 (two) Medical times Branch daily with meals. norgestimat Yes [id number] 1{tbl} Take 1 Univers e-ethinyl 1-28 tablet by ity o f estradioL 00:00: mouth [place] 0.25-35 00 daily. Medical mg-mcg per Branch tablet norgestimat 2020-0 Yes [id number] 1{tbl} Take 1 Univers e-ethinyl 1-28 tablet by ity o f estradioL 00:00: mouth [place] 0.25-35 00 daily. Medical mg-mcg per Branch tablet PARoxetine 2020-0 Yes [id number] 10mg Take 1 U nivers (PAXIL) 10 1-28 tablet by ity of mg tablet 00:00: mouth [place] 00 daily. Medical Branch norgestimat 2020-0 Yes [id number] 1{tbl} Take 1 Univers e-ethinyl 1-28 tablet by ity o f estradioL 00:00: mouth [place] 0.25-35 00 daily. Medical mg-mcg per Branch tablet PARoxetine 2020-0 Yes [id number] 10mg Take 1 U nivers (PAXIL) 10 1-28 tablet by ity of mg tablet 00:00: mouth [place] 00 daily. [facility] norgestimat Yes [id number] 1{tbl} Take 1 Univers e-ethinyl 1-28 tablet by ity o f estradioL 00:00: mouth [place] 0.25-35 00 daily. Medical mg-mcg per Branch tablet PARoxetine Yes [id number] 10mg Take 1 U nivers (PAXIL) 10 1-28 tablet by ity of mg tablet 00:00: mouth [place] 00 daily. Medical Branch norgestimat Yes [id number] 1{tbl} Take 1 Univers e-ethinyl 1-28 tablet by ity o f estradioL 00:00: mouth [place] 0.25-35 00 daily. Medical mg-mcg per Branch tablet PARoxetine Yes [id number] 10mg Take 1 U nivers (PAXIL) 10 1-28 tablet by ity of mg tablet 00:00: mouth [place] 00 daily. [facility] norgestimat Yes [id number] 1{tbl} Take 1 Univers e-ethinyl 1-28 tablet by ity o f estradioL 00:00: mouth [place] 0.25-35 00 daily. Medical mg-mcg per Branch tablet PARoxetine Yes [id number] 10mg Take 1 U nivers (PAXIL) 10 1-28 tablet by ity of mg tablet 00:00: mouth [place] 00 daily. [facility] Branch norgestimat Yes [id number] 1{tbl} Take 1 Univers e-ethinyl 1-28 tablet by ity o f estradioL 00:00: mouth [place] 0.25-35 00 daily. Medical mg-mcg per Branch tablet PARoxetine Yes [id number] 10mg Take 1 U nivers (PAXIL) 10 1-28 tablet by ity of mg tablet 00:00: mouth [place] 00 daily. [facility] norgestimat Yes [id number] 1{tbl} Take 1 Univers e-ethinyl 1-28 tablet by ity o f estradioL 00:00: mouth [place] 0.25-35 00 daily. Medical mg-mcg per Branch tablet PARoxetine Yes [id number] 10mg Take 1 U nivers (PAXIL) 10 1-28 tablet by ity of mg tablet 00:00: mouth [place] 00 daily. Medical Branch norgestimat Yes [id number] 1{tbl} Take 1 Univers e-ethinyl 1-28 tablet by ity o f estradioL 00:00: mouth [place] 0.25-35 00 daily. Medical mg-mcg per Branch tablet PARoxetine Yes [id number] 10mg Take 1 U nivers (PAXIL) 10 -28 tablet by ity of mg tablet 00:00: mouth [place] 00 daily. Medical Branch norgestimat Yes [id number] 1{tbl} Take 1 Univers e-ethinyl 1-28 tablet by ity o f estradioL 00:00: mouth [place] 0.25-35 00 daily. Medical mg-mcg per Branch tablet PARoxetine Yes [id number] 10mg Take 1 U nivers (PAXIL) 10 -28 tablet by ity of mg tablet 00:00: mouth [place] 00 daily. Medical Branch norgestimat Yes [id number] 1{tbl} Take 1 Univers e-ethinyl 1-28 tablet by ity o f estradioL 00:00: mouth [place] 0.25-35 00 daily. Medical mg-mcg per Branch tablet norgestimat Yes [id number] 1{tbl} Take 1 Univers e-ethinyl 1-28 tablet by ity o f estradioL 00:00: mouth [place] 0.25-35 00 daily. Medical mg-mcg per Branch tablet norgestimat Yes [id number] 1{tbl} Take 1 Univers e-ethinyl 1-28 tablet by ity o f estradioL 00:00: mouth [place] 0.25-35 00 daily. Medical mg-mcg per Branch tablet PARoxetine 2020- No [id number] 10mg Take 1 Univers (PAXIL) 10 - [...] mg 00 :00 ONCE, 1 Medical dose, [facility] Branch 05/18/20 at 0200, TUSHAR
Fa culty member approving Restricted medication : EKTA MORSE ketorolac 2020- No 30mg 30 mg, Unive rs (TORADOL) 05-18 Slow IV ity of injection 08:00: 07:58 Push, [place] 30 mg 00 :00 ONCE, 1 Medical dose, Fri Branch 05/18/20 at 0200, TUSHAR
Fa culty member approving Restricted medication : EKTA MORSE 2019-04 Yes [id number] 1{tbl} Take 1 Univers vitamin 2-30 tablet by ity of w/FA tablet 00:00: mouth [place] 00 daily. Medical Branch docusate 2019-04 Yes [id number] 240mg Take 1 U nivers calcium 240 2-30 capsule by it y of mg capsule 00:00: mouth once [place] 00 daily as Medical needed for Branch Constipati on. ferrous 2019-04 Yes [id number] 325mg Take 1 Un inés sulfate 325 2-30 tablet by ity of mg (65 mg 00:00: mouth 2 [place] iron) 00 (two) Medical tablet times Branch daily. ibuprofen 2019-04 Yes [id number] 600mg Take 1 Univers 600 mg 2-30 tablet by ity of tablet 00:00: mouth [place] 00 every 6 Medical (six) Branch hours as needed (Pain). Take with food or milk. 2019-04 Yes [id number] 1{tbl} Take 1 Univers vitamin 2-30 tablet by ity of w/FA tablet 00:00: mouth [place] 00 daily. Medical Branch docusate 2019-04 Yes [id number] 240mg Take 1 U nivers calcium 240 2-30 capsule by it y of mg capsule 00:00: mouth once [place] 00 daily as Medical needed for Branch Constipati on. ferrous 2019-04 Yes [id number] 325mg Take 1 Un inés sulfate 325 2-30 tablet by ity of mg (65 mg 00:00: mouth 2 [place] iron) 00 (two) Medical tablet times Branch daily. ibuprofen 2019-04 Yes [id number] 600mg Take 1 Univers 600 mg 2-30 tablet by ity of tablet 00:00: mouth [place] 00 every 6 Medical (six) Branch hours as needed (Pain). Take with food or milk. 2019-04 Yes [id number] 1{tbl} Take 1 Univers vitamin 2-30 tablet by ity of w/FA tablet 00:00: mouth [place] 00 daily. Medical Branch docusate 2019-04 Yes [id number] 240mg Take 1 U nivers calcium 240 2-30 capsule by it y of mg capsule 00:00: mouth once [place] 00 daily as Medical needed for Branch Constipati on. ferrous 2019-04 Yes [id number] 325mg Take 1 Un inés sulfate 325 2-30 tablet by ity of mg (65 mg 00:00: mouth 2 [place] iron) 00 (two) Medical tablet times Branch daily. ibuprofen 2019-04 Yes [id number] 600mg Take 1 Univers 600 mg 2-30 tablet by ity of tablet 00:00: mouth [place] 00 every 6 Medical (six) Branch hours as needed (Pain). Take with food or milk. 2019-04 Yes [id number] 1{tbl} Take 1 Univers vitamin 2-30 tablet by ity of w/FA tablet 00:00: mouth [place] 00 daily. Medical Branch docusate 2019-04 Yes [id number] 240mg Take 1 U nivers calcium 240 2-30 capsule by it y of mg capsule 00:00: mouth once [place] 00 daily as Medical needed for Branch Constipati on. ferrous 2019-04 Yes [id number] 325mg Take 1 Un inés sulfate 325 2-30 tablet by ity of mg (65 mg 00:00: mouth 2 [place] iron) 00 (two) Medical tablet times Branch daily. ibuprofen 2019-04 Yes [id number] 600mg Take 1 Univers 600 mg 2-30 tablet by ity of tablet 00:00: mouth [place] 00 every 6 Medical (six) Branch hours as needed (Pain). Take with food or milk. 2019-04 Yes [id number] 1{tbl} Take 1 Univers vitamin 2-30 tablet by ity of w/FA tablet 00:00: mouth [place] 00 daily. Medical Branch docusate 2019-04 Yes [id number] 240mg Take 1 U nivers calcium 240 2-30 capsule by it y of mg capsule 00:00: mouth once [place] 00 daily as Medical needed for Branch Constipati on. ferrous 2019-04 Yes [id number] 325mg Take 1 Un inés sulfate 325 2-30 tablet by ity of mg (65 mg 00:00: mouth 2 [place] iron) 00 (two) Medical tablet times Branch daily. ibuprofen 2019-04 Yes [id number] 600mg Take 1 Univers 600 mg 2-30 tablet by ity of tablet 00:00: mouth [place] 00 every 6 Medical (six) Branch hours as needed (Pain). Take with food or milk. 2019-04 Yes [id number] 1{tbl} Take 1 Univers vitamin 2-30 tablet by ity of w/FA tablet 00:00: mouth [place] 00 daily. Medical Branch docusate 2019-04 Yes [id number] 240mg Take 1 U nivers calcium 240 2-30 capsule by it y of mg capsule 00:00: mouth once [place] 00 daily as Medical needed for Branch Constipati on. ferrous 2019-04 Yes [id number] 325mg Take 1 Un inés sulfate 325 2-30 tablet by ity of mg (65 mg 00:00: mouth 2 [place] iron) 00 (two) Medical tablet times Branch daily. ibuprofen 2019-04 Yes [id number] 600mg Take 1 Univers 600 mg 2-30 tablet by ity of tablet 00:00: mouth [place] 00 every 6 Medical (six) Branch hours as needed (Pain). Take with food or milk. 2019-04 Yes [id number] 1{tbl} Take 1 Univers vitamin 2-30 tablet by ity of w/FA tablet 00:00: mouth [place] 00 daily. Medical Branch docusate 2019-04 Yes [id number] 240mg Take 1 U nivers calcium 240 2-30 capsule by it y of mg capsule 00:00: mouth once [place] 00 daily as Medical needed for Branch Constipati on. ferrous 2019-04 Yes [id number] 325mg Take 1 Un inés sulfate 325 2-30 tablet by ity of mg (65 mg 00:00: mouth 2 [place] iron) 00 (two) Medical tablet times Branch daily. ibuprofen 2019-04 Yes [id number] 600mg Take 1 Univers 600 mg 2-30 tablet by ity of tablet 00:00: mouth [place] 00 every 6 Medical (six) Branch hours as needed (Pain). Take with food or milk. 2019-04 Yes [id number] 1{tbl} Take 1 Univers vitamin 2-30 tablet by ity of w/FA tablet 00:00: mouth [place] 00 daily. Medical Branch docusate 2019-04 Yes [id number] 240mg Take 1 U nivers calcium 240 2-30 capsule by it y of mg capsule 00:00: mouth once [place] 00 daily as Medical needed for Branch Constipati on. ferrous 2019- Yes [id number] 325mg Take 1 Un inés sulfate 325 2-30 tablet by ity of mg (65 mg 00:00: mouth 2 [place] iron) 00 (two) Medical tablet times Branch daily. ibuprofen 2019-04 Yes [id number] 600mg Take 1 Univers 600 mg 2-30 tablet by ity of tablet 00:00: mouth [place] 00 every 6 Medical (six) Branch hours as needed (Pain). Take with food or milk. 2019-04 Yes [id number] 1{tbl} Take 1 Univers vitamin 2-30 tablet by ity of w/FA tablet 00:00: mouth [place] 00 daily. Medical Branch docusate 2019-04 Yes [id number] 240mg Take 1 U nivers calcium 240 2-30 capsule by it y of mg capsule 00:00: mouth once [place] 00 daily as Medical needed for Branch Constipati on. ferrous 2019-04 Yes [id number] 325mg Take 1 Un inés sulfate 325 2-30 tablet by ity of mg (65 mg 00:00: mouth 2 [place] iron) 00 (two) Medical tablet times Branch daily. ibuprofen 2019-04 Yes [id number] 600mg Take 1 Univers 600 mg 2-30 tablet by ity of tablet 00:00: mouth [place] 00 every 6 Medical (six) Branch hours as needed (Pain). Take with food or milk. 2019-04 Yes [id number] 1{tbl} Take 1 Univers vitamin 2-30 tablet by ity of w/FA tablet 00:00: mouth [place] 00 daily. Medical Branch docusate 2019-04 Yes [id number] 240mg Take 1 U nivers calcium 240 2-30 capsule by it y of mg capsule 00:00: mouth once [place] 00 daily as Medical needed for Branch Constipati on. ferrous 2019-04 Yes [id number] 325mg Take 1 Un inés sulfate 325 2-30 tablet by ity of mg (65 mg 00:00: mouth 2 [place] iron) 00 (two) Medical tablet times Branch daily. ibuprofen 2019-04 Yes [id number] 600mg Take 1 Univers 600 mg 2-30 tablet by ity of tablet 00:00: mouth [place] 00 every 6 Medical (six) Branch hours as needed (Pain). Take with food or milk. 2019-04 Yes [id number] 1{tbl} Take 1 Univers vitamin 2-30 tablet by ity of w/FA tablet 00:00: mouth [place] 00 daily. Medical Branch docusate 2019-04 Yes [id number] 240mg Take 1 U nivers calcium 240 2-30 capsule by it y of mg capsule 00:00: mouth once [place] 00 daily as Medical needed for Branch Constipati on. ferrous 2019-04 Yes [id number] 325mg Take 1 Un inés sulfate 325 2-30 tablet by ity of mg (65 mg 00:00: mouth 2 [place] iron) 00 (two) Medical tablet times Branch daily. ibuprofen 2019-04 Yes [id number] 600mg Take 1 Univers 600 mg 2-30 tablet by ity of tablet 00:00: mouth [place] 00 every 6 Medical (six) Branch hours as needed (Pain). Take with food or milk. 2019-04 Yes [id number] 1{tbl} Take 1 Univers vitamin 2-30 tablet by ity of w/FA tablet 00:00: mouth [place] 00 daily. Medical Branch docusate 2019-04 Yes [id number] 240mg Take 1 U nivers calcium 240 2-30 capsule by it y of mg capsule 00:00: mouth once [place] 00 daily as Medical needed for Branch Constipati on. ferrous 2019-04 Yes [id number] 325mg Take 1 Un inés sulfate 325 2-30 tablet by ity of mg (65 mg 00:00: mouth 2 [place] iron) 00 (two) Medical tablet times Branch daily. ibuprofen 2019-04 Yes [id number] 600mg Take 1 Univers 600 mg 2-30 tablet by ity of tablet 00:00: mouth [place] 00 every 6 Medical (six) Branch hours as needed (Pain). Take with food or milk. 2019-04- No [id number] 1{tbl} Take 1 Univers vitamin 2-30 03-25 tablet by ity of w/FA tablet 00:00: 00:00 mouth [place] 00 :00 daily. Medical Branch docusate 2019-04- No [id number] 240mg Take 1 Univers calcium 240 2-30 03-25 capsule by i ty of mg capsule 00:00: 00:00 mouth once [place] 00 :00 daily as Medical needed for Branch Constipati on. ferrous 2019-04- No [id number] 325mg Take 1 U nivers sulfate 325 2-30 03-25 tablet by it y of mg (65 mg 00:00: 00:00 mouth 2 [place] iron) 00 :00 (two) Medical tablet times Branch daily. ibuprofen 2019-04- No [id number] 600mg Take 1 Univers 600 mg 2-30 [...] 25/iron 1-25 mouth. ity of fum/folic/d 21:30: [place] [id number] Medical (-1 Branch ORAL) 2019-04 Yes Take by Unive rs 25/iron 1-25 mouth. ity of fum/folic/d 21:30: [place] [id number] Medical (-1 Branch ORAL) 2020 Yes Take by Unive rs 25/iron 1-25 mouth. ity of fum/folic/d 21:30: [place] [address] Medical (-1 Branch ORAL) 2020 Yes Take by Unive rs 25/iron 1-25 mouth. ity of fum/folic/d 21:30: [place] [address] Medical (-1 Branch ORAL) 2020 Yes Take by Unive rs 25/iron 1-25 mouth. ity of fum/folic/d 21:30: [place] [address] Medical (-1 Branch ORAL) 2020- Yes Take by Unive rs 25/iron 1-25 mouth. ity of fum/folic/d 21:30: [place] [address] Medical (-1 Branch ORAL) 2020- Yes Take by Unive rs 25/iron 1-25 mouth. ity of fum/folic/d 21:30: [place] [address] Medical (-1 Branch ORAL) 2020 Yes Take by Unive rs 25/iron 1-25 mouth. ity of fum/folic/d 21:30: [place] [address] Medical (-1 Branch ORAL) 2020 Yes Take by Unive rs 25/iron 1-25 mouth. ity of fum/folic/d 21:30: [place] [address] Medical (-1 Branch ORAL) 2020 Yes Take by Unive rs 25/iron 1-25 mouth. ity of fum/folic/d 21:30: [place] [address] Medical (-1 Branch ORAL) 2020 Yes Take by Unive rs 25/iron 1-25 mouth. ity of fum/folic/d 21:30: [place] [id number] Medical (-1 Branch ORAL) PNV 2019-04 Yes [id number] Take 1 Univers 102-iron-fo 0-20 TAB-CAP/M2 it y of late-dha 00:00: by mouth [place] (VITAFOL FE 00 daily. Medica l PLUS) 90 mg Branch iron- 1 mg-200 mg Cap PNV 2020 Yes [id number] Take 1 [facility] 102-iron-fo 0-20 TAB-CAP/M2 it y of late-dha 00:00: by mouth [place] (VITAFOL FE 00 daily. Medica l PLUS) 90 mg Branch iron- 1 mg-200 mg Cap PNV 2019-04 Yes [id number] Take 1 [facility] 102-iron-fo 0-20 TAB-CAP/M2 it y of late-dha 00:00: by mouth [place] (VITAFOL FE 00 daily. Medica l PLUS) 90 mg Branch iron- 1 mg-200 mg Cap PNV 2020 Yes [id number] Take 1 [facility] 102-iron-fo 0-20 TAB-CAP/M2 it y of late-dha 00:00: by mouth [place] (VITAFOL FE 00 daily. Medica l PLUS) 90 mg Branch iron- 1 mg-200 mg Cap PNV 2020 Yes [id number] Take 1 [facility] 102-iron-fo 0-20 TAB-CAP/M2 it y of late-dha 00:00: by mouth [place] (VITAFOL FE 00 daily. Medica l PLUS) 90 mg Branch iron- 1 mg-200 mg Cap PNV 2020 Yes [id number] Take 1 [facility] 102-iron-fo 0-20 TAB-CAP/M2 it y of late-dha 00:00: by mouth [place] (VITAFOL FE 00 daily. Medica l PLUS) 90 mg Branch iron- 1 mg-200 mg Cap PNV 2019-04 Yes [id number] Take 1 [facility] 102-iron-fo 0-20 TAB-CAP/M2 it y of late-dha 00:00: by mouth [place] (VITAFOL FE 00 daily. Medica l PLUS) 90 mg Branch iron- 1 mg-200 mg Cap PNV 2019-04 2020- No [id number] Take 1 Univer s 102-iron-fo 0-20 11-25 TAB-CAP/M2 i ty of late-dha 00:00: 00:[place] (VITAFOL FE 00 :00 daily. Medica l PLUS) 90 mg Branch iron- 1 mg-200 mg Cap PNV 2019-04 2020- No [id number] Take 1 Univer s 102-iron-fo 0-20 11-25 TAB-CAP/M2 i ty of late-dha 00:00: 00:00 [place] (VITAFOL FE 00 :00 daily. Medica l PLUS) 90 mg Branch iron- 1 mg-200 mg Cap PNV 2019-04 2020- No [id number] Take 1 Univer s 102-iron-fo 0-20 11-25 TAB-CAP/M2 i ty of late-dha 00:00: 00:00 [place] (VITAFOL FE 00 :00 daily. Medica l PLUS) 90 mg Branch iron- 1 mg-200 mg Cap metoclopram 2020-0 Yes [id number] 10mg Take 1 [facility] levi HCl 10 8-11 tablet by ity of mg tablet 00:00: mouth [place] 00 every 6 Medical (six) Branch hours as needed for Nausea and Vomiting (N/V). metoclopram 2020-0 Yes [id number] 10mg Take 1 [facility] levi HCl 10 8-11 tablet by ity of mg tablet 00:00: mouth [place] 00 every 6 Medical (six) Branch hours as needed for Nausea and Vomiting (N/V). metoclopram 2020-0 Yes [id number] 10mg Take 1 [facility] levi HCl 10 8-11 tablet by ity of mg tablet 00:00: mouth [place] 00 every 6 Medical (six) Branch hours as needed for Nausea and Vomiting (N/V). metoclopram 2020-0 Yes [id number] 10mg Take 1 [facility] levi HCl 10 8-11 tablet by ity of mg tablet 00:00: mouth [place] 00 every 6 Medical (six) Branch hours as needed for Nausea and Vomiting (N/V). metoclopram 2020-0 Yes [id number] 10mg Take 1 [facility] levi HCl 10 8-11 tablet by ity of mg tablet 00:00: mouth [place] 00 every 6 Medical (six) Branch hours as needed for Nausea and Vomiting (N/V). metoclopram 2020-0 Yes [id number] 10mg Take 1 [facility] levi HCl 10 8-11 tablet by ity of mg tablet 00:00: mouth [place] 00 every 6 Medical (six) Branch hours as needed for Nausea and Vomiting (N/V). metoclopram 2020-0 2020- No [id number] 10mg Take 1 [facility] levi HCl 10 [...] 11/28/19 at 1615, TUSHAR doxylamine- 2020-0 Yes [id number] Take 2 [facility] pyridoxine, 8-03 tabs by ity o f vit B6, 00:00: [place] [facility] (DICLEGIS[place] 00 If nausea Medi dee 10-10 mg not Branch per tablet controlled may increase to max of 4 tabs daily-1 tab in am, 1 tab mid afternoon and 2 tabs qhs doxylamine- 2020-0 Yes [id number] Take 2 [facility] pyridoxine, 8-03 tabs by ity o f vit B6, 00:00: mouth [facility] (DICLEGIS[place] 00 If nausea Medi dee 10-10 mg not Branch per tablet controlled may increase to max of 4 tabs daily-1 tab in am, 1 tab mid afternoon and 2 tabs qhs doxylamine- 2020-0 Yes [id number] Take 2 [facility] pyridoxine, 8-03 tabs by ity o f vit B6, 00:00: mouth [facility] (DICLEGIS[place] 00 If nausea Medi dee 10-10 mg not Branch per tablet controlled may increase to max of 4 tabs daily-1 tab in am, 1 tab mid afternoon and 2 tabs qhs doxylamine- 2020-0 Yes [id number] Take 2 [facility] pyridoxine, 8-03 tabs by ity o f vit B6, 00:00: mouth [facility] (DICLEGIS[place] 00 If nausea Medi dee 10-10 mg not Branch per tablet controlled may increase to max of 4 tabs daily-1 tab in am, 1 tab mid afternoon and 2 tabs qhs doxylamine- 2020-0 Yes [id number] Take 2 [facility] pyridoxine, 8-03 tabs by ity o f vit B6, 00:00: mouth [facility] (DICLEGIS[place] 00 If nausea Medi dee 10-10 mg not Branch per tablet controlled may increase to max of 4 tabs daily-1 tab in am, 1 tab mid afternoon and 2 tabs qhs doxylamine- 2020-0 Yes [id number] Take 2 [facility] pyridoxine, 8-03 tabs by ity o f vit B6, 00:00: mouth [facility] (DICLEGIS[place] 00 If nausea Medi dee 10-10 mg not Branch per tablet controlled may increase to max of 4 tabs daily-1 tab in am, 1 tab mid afternoon and 2 tabs qhs doxylamine- 2020-0 Yes [id number] Take 2 [facility] pyridoxine, 8-03 tabs by ity o f vit B6, 00:00: mouth [facility] (DICLEGIS[place] 00 If nausea Medi dee 10-10 mg not Branch per tablet controlled may increase to max of 4 tabs daily-1 tab in am, 1 tab mid afternoon and 2 tabs qhs doxylamine- 2020-0 Yes [id number] Take 2 [facility] pyridoxine, 8-03 tabs by ity o f vit B6, 00:00: mouth [facility] (DICLEGIS[place] 00 If nausea Medi dee 10-10 mg not Branch per tablet controlled may increase to max of 4 tabs daily-1 tab in am, 1 tab mid afternoon and 2 tabs qhs doxylamine- 2019-0 2020- No [id number] Take 2 [facility] pyridoxine, 8-03 10-20 tabs by ity of vit B6, 00:00: 00:00 mouth [facility]. [place] (DICLEGIS) 00 :00 If nausea Medi dee 10-10 mg not Branch per tablet controlled may increase to max of 4 tabs daily-1 tab in am, 1 tab mid afternoon and 2 tabs qhs ampicillin 2019-0 2020- No [id number] 500mg Take 1 [facility] 500 mg 7-13 07-24 capsule by ity of capsule 00:00: 04:59 mouth 4 [place] 00 :00 (four) Medical times Branch daily for 10 days. ampicillin 2019-0 2020- No [id number] 500mg Take 1 [facility] 500 mg 7-13 07-24 capsule by ity of capsule 00:00: 04:59 mouth 4 [place] 00 :00 (four) Medical times Branch daily for 10 days. proMETHazin 2020-0 Yes [id number] 25mg Take 1 [facility] e 25 mg 7-09 tablet by ity of tablet 00:00: mouth [place] 00 every 6 Medical (six) Branch hours as needed for Nausea and Vomiting (N/V). proMETHazin 2020-0 Yes [id number] 25mg Take 1 [facility] e 25 mg 7-09 tablet by ity of tablet 00:00: mouth [place] 00 every 6 Medical (six) Branch hours as needed for Nausea and Vomiting (N/V). proMETHazin 2020-0 Yes [id number] 25mg Take 1 [facility] e 25 mg 7-09 tablet by ity of tablet 00:00: mouth [place] 00 every 6 Medical (six) Branch hours as needed for Nausea and Vomiting (N/V). proMETHazin 2020-0 Yes [id number] 25mg Take 1 [facility] e 25 mg 7-09 tablet by ity of tablet 00:00: mouth [place] 00 every 6 Medical (six) Branch hours as needed for Nausea and Vomiting (N/V). proMETHazin 2020-0 Yes [id number] 25mg Take 1 [facility] e 25 mg 7-09 tablet by ity of tablet 00:00: mouth [place] 00 every 6 Medical (six) Branch hours as needed for Nausea and Vomiting (N/V). proMETHazin 2020-0 Yes [id number] 25mg Take 1 [facility] e 25 mg 7-09 tablet by ity of tablet 00:00: mouth [place] 00 every 6 Medical (six) Branch hours as needed for Nausea and Vomiting (N/V). proMETHazin 2020-0 Yes [id number] 25mg Take 1 [facility] e 25 mg 7-09 tablet by ity of tablet 00:00: mouth [place] 00 every 6 Medical (six) Branch hours as needed for Nausea and Vomiting (N/V). proMETHazin 2020-0 Yes [id number] 25mg Take 1 [facility] e 25 mg 7-09 tablet by ity of tablet 00:00: mouth [place] 00 every 6 Medical (six) Branch hours as needed for Nausea and Vomiting (N/V). proMETHazin 2020-0 Yes [id number] 25mg Take 1 [facility] e 25 mg 7-09 tablet by ity of tablet 00:00: mouth [place] 00 every 6 Medical (six) Branch hours as needed for Nausea and Vomiting (N/V). proMETHazin 2020-0 Yes [id number] 25mg Take 1 [facility] e 25 mg 7-09 tablet by ity of tablet 00:00: mouth [place] 00 every 6 Medical (six) Branch hours as needed for Nausea and Vomiting (N/V). proMETHazin 2020-0 Yes [id number] 25mg Take 1 [facility] e 25 mg 7-09 tablet by ity of tablet 00:00: mouth [place] 00 every 6 Medical (six) Branch hours as needed for Nausea and Vomiting (N/V). proMETHazin 2020-0 Yes [id number] 25mg Take 1 [facility] e 25 mg 7-09 tablet by ity of tablet 00:00: mouth [place] 00 every 6 Medical (six) Branch hours as needed for Nausea and Vomiting (N/V). proMETHazin 2020-0 Yes [id number] 25mg Take 1 [facility] e 25 mg 7-09 tablet by ity of tablet 00:00: mouth [place] 00 every 6 Medical (six) Branch hours as needed for Nausea and Vomiting (N/V). proMETHazin 2020-0 Yes [id number] 25mg Take 1 [facility] e 25 mg 7-09 tablet by ity of tablet 00:00: mouth [place] 00 every 6 Medical (six) Branch hours as needed for Nausea and Vomiting (N/V). proMETHazin 2020-0 Yes [id number] 25mg Take 1 [facility] e 25 mg 7-09 tablet by ity of tablet 00:00: mouth [place] 00 every 6 Medical (six) Branch hours as needed for Nausea and Vomiting (N/V). proMETHazin 2020-0 Yes [id number] 25mg Take 1 [facility] e 25 mg 7-09 tablet by ity of tablet 00:00: mouth [place] 00 every 6 Medical (six) Branch hours as needed for Nausea and Vomiting (N/V). proMETHazin 2020-0 Yes [id number] 25mg Take 1 [facility] e 25 mg 7-09 tablet by ity of tablet 00:00: mouth [place] 00 every 6 Medical (six) Branch hours as needed for Nausea and Vomiting (N/V). proMETHazin 2020-0 2020- No [id number] 25mg Take 1 [facility] e 25 mg 7-09 10-20 tablet by ity of tablet 00:00: 00:00 mouth [place] 00 :00 every 6 Medical (six) Branch hours as needed for Nausea and Vomiting (N/V). Acyclovir Acyclovir 0 Yes Hossein 1 tablet Common 7-25 [facility] 00:00: - [facility] 00 [facility] butalbital- 0 Yes 1{tbl} Take 1 [...] No known No Univers medications ity of [facility] [place] Immunizations Ordered Filled Immunization Date Status Comments [facility] e Immunization Name Name TDAP 2020-02-14 Completed University of 00:00:00 [facility] [place] Influenza Virus 2020-02-14 Completed Universit y of Vaccine Quad .5 mL 00:00:00 [place] [facility] 6+ MO Branch TDAP 2020-02-14 Completed University of 00:00:00 [facility] [place] Influenza Virus 2020-02-14 Completed Universit y of Vaccine [facility] .5 mL 00:00:00 [place] [facility] 6+ MO Branch TDAP 2020-02-14 Completed University of 00:00:00 [facility] [place] Influenza Virus 2020-02-14 Completed Universit y of Vaccine Quad .5 mL 00:00:00 [place] [facility] 6+ MO Branch TDAP 2020-02-14 Completed University of 00:00:00 [facility] [place] Influenza Virus 2020-02-14 Completed Universit y of Vaccine Quad .5 mL 00:00:00 [place] [facility] 6+ MO Branch TDAP 2020-02-14 Completed University of 00:00:00 [facility] [place] Influenza Virus 2020-02-14 Completed Universit y of Vaccine Quad .5 mL 00:00:00 [place] [facility] 6+ MO Branch TDAP 2020-02-14 Completed University of 00:00:00 [facility] [place] Influenza Virus 2020-02-14 Completed Universit y of Vaccine Quad .5 mL 00:00:00 [place] [facility] 6+ MO Branch TDAP 2020-02-14 Completed University of 00:00:00 [facility] [place] Influenza Virus 2020-02-14 Completed Universit y of Vaccine Quad .5 mL 00:00:00 [place] [facility] 6+ MO Branch TDAP 2020-02-14 Completed University of 00:00:00 [facility] [place] Influenza Virus 2020-02-14 Completed Universit y of Vaccine Quad .5 mL 00:00:00 [place] [facility] 6+ MO Branch TDAP 2020-02-14 Completed University of 00:00:00 [facility] [place] Influenza Virus 2020-02-14 Completed Universit y of Vaccine Quad .5 mL 00:00:00 [place] [facility] 6+ MO Branch TDAP 2020-02-14 Completed University of 00:00:00 [facility] [place] Influenza Virus 2020-02-14 Completed Universit y of Vaccine Quad .5 mL 00:00:00 [place] [facility] IM 6+ MO Branch TDAP 2020-02-14 Completed University of 00:00:00 [place] [facility] Influenza Virus 2020-02-14 Completed Universit y of Vaccine Quad .5 mL 00:00:00 [place] [facility] IM 6+ MO Branch TDAP 2020-02-14 Completed University of 00:00:00 [facility] [place] Influenza Virus 2020-02-14 Completed Universit y of Vaccine Quad .5 mL 00:00:00 [place] [facility] IM 6+ MO Branch TDAP 2020-02-14 Completed [facility] of 00:00:00 [place] [facility] Influenza Virus 2020-02-14 Completed Universit y of Vaccine Quad .5 mL 00:00:00 [place] [facility] 6+ MO Branch TDAP 2020-02-14 Completed University of 00:00:00 [facility] [place] Influenza Virus 2020-02-14 Completed Universit y of Vaccine Quad .5 mL 00:00:00 [place] [facility] 6+ MO Branch TDAP 2020-02-14 Completed University of 00:00:00 [facility] [place] Influenza Virus 2020-02-14 Completed Universit y of Vaccine Quad .5 mL 00:00:00 [place] [facility] 6+ MO Branch TDAP 2020-02-14 Completed University of 00:00:00 [facility] [place] Influenza Virus 2020-02-14 Completed Universit y of Vaccine Quad .5 mL 00:00:00 [place] [facility] 6+ MO Branch TDAP 2020-02-14 Completed University of 00:00:00 [facility] [place] Influenza Virus 2020-02-14 Completed Universit y of Vaccine Quad .5 mL 00:00:00 [place] [facility] 6+ MO Branch TDAP 2020-02-14 Completed University of 00:00:00 [facility] [place] Influenza Virus 2020-02-14 Completed Universit y of Vaccine Quad .5 mL 00:00:00 [place] [facility] IM 6+ MO Branch TDAP 2020-02-14 Completed University of 00:00:00 [place] [facility] [place] Influenza Virus 2020-02-14 Completed Universit y of Vaccine [facility] .5 mL 00:00:00 [place] [facility] IM 6+ MO Branch TDAP 2020-02-14 Completed University of 00:00:00 [facility] [place] Influenza Virus 2020-02-14 Completed Universit y of Vaccine Quad .5 mL 00:00:00 [place] [facility] 6+ MO Branch TDAP 2020-02-14 Completed University of 00:00:00 [facility] [place] Influenza Virus 2020-02-14 Completed Universit y of Vaccine Quad .5 mL 00:00:00 [place] [facility] IM 6+ MO Branch TDAP 2020-02-14 Completed University of 00:00:00 [place] [facility] [place] Influenza Virus 2020-02-14 Completed Universit y of Vaccine Quad .5 mL 00:00:00 [place] [facility] IM 6+ MO Branch TDAP 2020-02-14 Completed University of 00:00:00 [place] [facility] [place] Influenza Virus 2020-02-14 Completed Universit y of Vaccine [facility] .5 mL 00:00:00 [place] [facility] IM 6+ MO Branch TDAP 2020-02-14 Completed University of 00:00:00 [place] [facility] [place] Influenza Virus 2020-02-14 Completed Universit y of Vaccine Quad .5 mL 00:00:00 [place] [facility] 6+ MO Branch TDAP 2020-02-14 Completed University of 00:00:00 [facility] [place] Influenza Virus 2020-02-14 Completed Universit y of Vaccine Quad .5 mL 00:00:00 [place] [facility] 6+ MO Branch TDAP 2020-02-14 Completed University of 00:00:00 [place] [facility] [place] Influenza Virus 2020-02-14 Completed Universit y of Vaccine [facility] .5 mL 00:00:00 [place] [facility] 6+ MO Branch TDAP 2020-02-14 Completed University of 00:00:00 [place] [facility] [place] Influenza Virus 2020-02-14 Completed Universit y of Vaccine Quad .5 mL 00:00:00 [place] [facility] 6+ MO Branch TDAP 2020-02-14 Completed University of 00:00:00 [place] [facility] [place] Influenza Virus 2020-02-14 Completed Universit y of Vaccine Quad .5 mL 00:00:00 [place] [facility] 6+ MO Branch TDAP 2020-02-14 Completed University of 00:00:00 [place] [facility] [place] Influenza Virus 2020-02-14 Completed Universit y of Vaccine Quad .5 mL 00:00:00 [place] [facility] IM 6+ MO Branch TDAP 2020-02-14 Completed University of 00:00:00 [place] [facility] [place] Influenza Virus 2020-02-14 Completed Universit y of Vaccine Quad .5 mL 00:00:00 [place] [facility] IM 6+ MO Branch TDAP 2020-02-14 Completed University of 00:00:00 [place] [facility] [place] Influenza Virus 2020-02-14 Completed Universit y of Vaccine Quad .5 mL 00:00:00 [place] [facility] IM 6+ MO Branch TDAP 2020-02-14 Completed University of 00:00:00 [place] [facility] [place] Influenza Virus 2020-02-14 Completed Universit y of Vaccine Quad .5 mL 00:00:00 [place] [facility] IM 6+ MO Branch TDAP 2020-02-14 Completed University of 00:00:00 [facility] [place] Influenza Virus 2020-02-14 Completed Universit y of Vaccine Quad .5 mL 00:00:00 [place] [facility] IM 6+ MO Branch TDAP 2020-02-14 Completed University of 00:00:00 [facility] [place] Influenza Virus 2020-02-14 Completed Universit y of Vaccine Quad .5 mL 00:00:00 [place] [facility] IM 6+ MO Branch TDAP 2020-02-14 Completed University of 00:00:00 [facility] [place] Influenza Virus 2020-02-14 Completed Universit y of Vaccine Quad .5 mL 00:00:00 [place] [facility] IM 6+ MO Branch TDAP 2020-02-14 Completed University of 00:00:00 [facility] [place] Influenza Virus 2020-02-14 Completed Universit y of Vaccine Quad .5 mL 00:00:00 [place] [facility] IM 6+ MO Branch TDAP 2020-02-14 Completed University of 00:00:00 [facility] [place] Influenza Virus 2020-02-14 Completed Universit y of Vaccine Quad .5 mL 00:00:00 [place] [facility] 6+ MO Branch Influenza Virus 2015-02-01 Completed Universit y of Vaccine Quad IM 3+ 00:00:00 [facility] Influenza Virus 2015-02-01 Completed Universit y of Vaccine Quad IM 3+ 00:00:00 [facility] Influenza Virus 2015-02-01 Completed Universit y of Vaccine Quad IM 3+ 00:00:00 [facility] Influenza Virus 2015-02-01 Completed Universit y of Vaccine Quad IM 3+ 00:00:00 [facility] Influenza Virus 2015-02-01 Completed Universit y of Vaccine Quad IM 3+ 00:00:00 [facility] Influenza Virus 2015-02-01 Completed Universit y of Vaccine [facility] IM 3+ 00:00:00 [facility] Influenza Virus 2015-02-01 Completed Universit y of Vaccine Quad IM 3+ 00:00:00 [facility] Influenza Virus 2015-02-01 Completed Universit y of Vaccine Quad IM 3+ 00:00:00 [facility] Influenza Virus 2015-02-01 Completed [facility]it y of Vaccine [facility] IM 3+ [facility] Influenza Virus 2015-02-01 Completed Universit y of Vaccine Quad IM 3+ 00:00:[facility] Influenza Virus 2015-02-01 Completed Universit y of Vaccine Quad IM 3+ 00:00:00 [facility] Influenza Virus 2015-02-01 Completed Universit y of Vaccine Quad IM 3+ 00:00:00 [facility] Influenza Virus 2015-02-01 Completed Universit y of Vaccine [facility] IM 3+ 00:00:[facility] Influenza Virus 2015-02-01 Completed Universit y of Vaccine Quad IM 3+ 00:00:00 [facility] Influenza Virus 2015-02-01 Completed Universit y of Vaccine Quad IM 3+ 00:00:00 [facility] Influenza Virus 2015-02-01 Completed Universit y of Vaccine Quad IM 3+ 00:00:00 [facility] Influenza Virus 2015-02-01 Completed Universit y of Vaccine Quad IM 3+ 00:00:00 [facility] Influenza Virus 2015-02-01 Completed Universit y of Vaccine [facility] IM 3+ 00:00:00 [facility] Influenza Virus 2015-02-01 Completed Universit y of Vaccine [facility] IM 3+ 00:00:[facility] Influenza Virus 2015-02-01 Completed Universit y of Vaccine Quad IM 3+ 00:00:00 [facility] Influenza Virus 2015-02-01 Completed Universit y of Vaccine Quad IM 3+ 00:00:00 [facility] Influenza Virus 2015-02-01 Completed Universit y of Vaccine Quad IM 3+ 00:00:00 [facility] Influenza Virus 2015-02-01 Completed Universit y of Vaccine Quad IM 3+ 00:00:00 [facility] Influenza Virus 2015-02-01 Completed Universit y of Vaccine Quad IM 3+ 00:00:00 [facility] Influenza Virus 2015-02-01 Completed Universit y of Vaccine Quad IM 3+ 00:00:00 [facility] Influenza Virus 2015-02-01 Completed Universit y of Vaccine Quad IM 3+ 00:00:00 [facility] Influenza Virus 2015-02-01 Completed Universit y of Vaccine Quad IM 3+ 00:00:00 [facility] Influenza Virus 2015-02-01 Completed Universit y of Vaccine Quad IM 3+ 00:00:00 [facility] Influenza Virus 2015-02-01 Completed Universit y of Vaccine Quad IM 3+ 00:00:00 [facility] Influenza Virus 2015-02-01 Completed Universit y of Vaccine Quad IM 3+ 00:00:00 [facility] Influenza Virus 2015-02-01 Completed Universit y of Vaccine Quad IM 3+ 00:00:00 [facility] Influenza Virus 2015-02-01 Completed Universit y of Vaccine Quad IM 3+ 00:00:00 [facility] Influenza Virus 2015-02-01 Completed Universit y of Vaccine Quad IM 3+ 00:00:00 [facility] Influenza Virus 2015-02-01 Completed Universit y of Vaccine Quad IM 3+ 00:00:00 [facility] Influenza Virus 2015-02-01 Completed Universit y of Vaccine Quad IM 3+ 00:00:00 [facility] Influenza Virus 2015-02-01 Completed Universit y of Vaccine Quad IM 3+ 00:00:00 [facility] Influenza Virus 2015-02-01 Completed Universit y of Vaccine Quad IM 3+ 00:00:00 [facility] Influenza Virus 2015-02-01 Completed Universit y of Vaccine Quad IM 3+ 00:00:00 [facility] Influenza Virus 2015-02-01 Completed Universit y of Vaccine Quad IM 3+ 00:00:00 [facility] Influenza Virus 2015-02-01 Completed Universit y of Vaccine [facility] IM 3+ 00:00:00 [facility] Influenza Virus 2015-02-01 Completed Universit y of Vaccine Quad IM 3+ 00:00:00 [facility] Influenza Virus 2015-02-01 Completed Universit y of Vaccine Quad IM 3+ 00:00:00 [facility] Influenza Virus 2015-02-01 Completed Universit y of Vaccine Quad IM 3+ 00:00:00 [facility] Influenza Virus 2015-02-01 Completed Universit y of Vaccine Quad IM 3+ 00:00:00 [facility] Influenza Virus 2015-02-01 Completed Universit y of Vaccine Quad IM 3+ 00:00:00 [facility] Influenza Virus 2015-02-01 Completed Universit y of Vaccine Quad IM 3+ 00:00:00 [facility] Influenza Virus 2015-02-01 Completed [facility]it y of Vaccine [facility] IM 3+ 00:00:[facility] Influenza Virus 2015-02-01 Completed Universit y of Vaccine [facility] IM 3+ 00:00:00 [facility] Influenza Virus 2015-02-01 Completed Universit y of Vaccine [facility] IM 3+ 00:00:00 [facility] Influenza Virus 2015-02-01 Completed Universit y of Vaccine Quad IM 3+ 00:00:00 [facility] Influenza Virus 2015-02-01 Completed Universit y of Vaccine [facility] IM 3+ 00:00:00 [facility] Influenza Virus 2015-02-01 Completed Universit y of Vaccine [facility] IM 3+ 00:00:00 [facility] Influenza Virus 2015-02-01 Completed Universit y of Vaccine [facility] IM 3+ 00:00:00 [facility] Influenza Virus 2015-02-01 Completed Universit y of Vaccine Quad IM 3+ 00:00:00 [facility] Vital Signs Vital Name Observation Time Observation Value Comments Source Systolic blood 2020-08-13 13:47:00 121 mm[Hg] Univer sity of pressure [facility] [place] Diastolic blood 2020-08-13 13:47:00 70 mm[Hg] Unive rsity of pressure [facility] [place] Heart rate 2020-08-13 13:47:00 71 /min Universi ty of [facility] [place] Body temperature 2020-08-13 13:47:00 36.67 Jasmin [facility] ersity [facility] Respiratory rate 2020-08-13 13:47:00 18 /min [facility] height 2020-08-13 13:47:00 180.3 cm Universi ty of [facility] [place] Body weight 2020-08-13 13:47:00 124.286 kg Universi ty of [facility] Branch BMI 2020-08-13 13:47:00 38.22 kg/m2 Universi ty [facility] Systolic blood 2020-08-13 13:47:00 121 mm[Hg] Univer sity of pressure [facility] Diastolic blood 2020-08-13 13:47:00 70 mm[Hg] Unive rsity of pressure [facility] Heart rate 2020-08-13 13:47:00 71 /min Universi ty of [facility] [place] Body temperature 2020-08-13 13:47:00 36.67 Jasmin Univ ersity of [place] [facility] Respiratory rate 2020-08-13 13:47:00 18 /min Univ ersity of [place] [facility] Body height 2020-08-13 13:47:00 180.3 cm [facility]i ty [facility] [place] [facility] Body weight 2020-08-13 13:47:00 124.286 kg Universi ty of [place] [facility] BMI 2020-08-13 13:47:00 38.22 kg/m2 [facility] Systolic blood 2020-07-19 15:56:00 116 mm[Hg] [facility] Diastolic blood 2020-07-19 15:56:00 69 mm[Hg] [facility] Heart rate 2020-07-19 15:56:00 73 /min [facility] Body temperature 2020-07-19 15:56:00 36.44 Jasmin [facility] Respiratory rate 2020-07-19 15:56:00 16 /min [facility] Oxygen saturation in 2020-07-19 15:56:00 99 /min [facility] of Arterial blood by [place] [employer] oximetry Branch Body weight 2020-07-19 08:45:00 126.554 kg [facility] BMI 2020-07-19 08:45:00 38.93 kg/m2 [facility] Body height 2020-07-18 16:47:00 180.3 cm [facility] Systolic blood 2020-07-10 08:00:00 120 mm[Hg] [facility] Diastolic blood 2020-07-10 08:00:00 78 mm[Hg] [facility] Heart rate 2020-07-10 08:00:00 66 /min [facility] Respiratory rate 2020-07-10 08:00:00 18 /min [facility] Oxygen saturation in 2020-07-10 08:00:00 96 /min [facility] Arterial blood by [employer] P[facility] oxim[facility] Branch Body temperature 2020-07-10 05:53:00 36.56 Jasmin [facility] Body weight 2020-07-10 05:53:00 122.925 kg [facility] BMI 2020-07-10 05:53:00 37.80 kg/m2 [facility] [place] [facility] [place] Heart rate 2020-06-08 04:18:00 59 /min [facility] Oxygen saturation in 2020-06-08 04:18:00 98 /min [facility] Arterial blood by [facility] Pulse oximetry Branch Systolic blood 2020-06-08 04:00:00 140 mm[Hg] [facility] Diastolic blood 2020-06-08 04:00:00 93 mm[Hg] [facility] Respiratory rate 2020-06-08 04:00:00 19 /min Univ [facility] of [facility] Body temperature 2020-06-08 03:42:00 36.72 Jasmin [facility] [place] [facility] [place] Body weight 2020-06-08 03:42:00 122.925 kg [facility] [place] [facility] BMI 2020-06-08 03:42:00 37.80 kg/m2 [facility] Systolic blood 2020-05-24 22:55:00 122 mm[Hg] [facility] Diastolic blood 2020-05-24 22:55:00 81 mm[Hg] [facility] Heart rate 2020-05-24 22:55:00 64 /min [facility] [place] [facility] Body temperature 2020-05-24 22:55:00 36.61 Jasmin [facility] Body height 2020-05-24 22:55:00 180.3 cm [facility] Body weight 2020-05-24 22:55:00 124.286 kg [facility] BMI 2020-05-24 22:55:00 38.22 kg/m2 [facility] Systolic blood 2020-05-18 10:00:00 122 mm[Hg] [facility] Diastolic blood 2020-05-18 10:00:00 75 mm[Hg] [facility] Heart rate 2020-05-18 10:00:00 66 /min [facility] Respiratory rate 2020-05-18 10:00:00 14 /min Univ [facility] Oxygen saturation in 2020-05-18 10:00:00 99 /min [facility] of Arterial blood by [facility] Pulse oximetry [place] Body temperature 2020-05-18 07:07:00 36.22 Jasmin Univ [facility] Body weight 2020-05-18 07:07:00 122.471 kg [facility] BMI 2020-05-18 07:07:00 37.66 kg/m2 [facility] Systolic blood 2020-05-02 20:24:00 125 mm[Hg] Univer sity of pressure [facility] Branch Diastolic blood 2020-05-02 20:24:00 89 mm[Hg] Unive rsity of pressure [facility] Heart rate 2020-05-02 20:24:00 61 /min [facility] Body temperature 2020-05-02 20:24:00 37 Jasmin [facility] Respiratory rate 2020-05-02 20:24:00 18 /min [facility] Body weight 2020-05-02 20:24:00 125.646 kg [facility] BMI 2020-05-02 20:24:00 38.63 kg/m2 [facility] Systolic blood 2020-04-18 17:55:00 121 mm[Hg] Univer [facility]ity of pressure [facility] Diastolic blood 2020-04-18 17:55:00 74 mm[Hg] Unive rsity of pressure [facility] Heart rate 2020-04-18 17:55:00 78 /min [facility] Respiratory rate 2020-04-18 17:55:00 20 /min Univ [facility] Body height 2020-04-18 17:55:00 180.3 cm [facility] Body weight 2020-04-18 17:55:00 134.174 kg [facility] BMI 2020-04-18 17:55:00 41.26 kg/m2 [facility] Systolic blood 2020-04-16 21:27:00 118 mm[Hg] Univer [facility]ity of pressure [facility] Diastolic blood 2020-04-16 21:27:00 71 mm[Hg] Unive rsity of pressure [facility] Heart rate 2020-04-16 21:27:00 80 /min [facility] Body temperature 2020-04-16 21:27:00 36.33 Jasmin [facility] Respiratory rate 2020-04-16 21:27:00 16 /min [facility] Body height 2020-04-16 21:27:00 180.3 cm [facility] Body weight 2020-04-16 21:27:00 134.99 kg [facility] BMI 2020-04-16 21:27:00 41.51 kg/m2 [facility] Systolic blood 2020-04-12 21:38:00 123 mm[Hg] [facility] Diastolic blood 2020-04-12 21:38:00 80 mm[Hg] [facility] Heart rate 2020-04-12 21:38:00 89 /min [facility] Body temperature 2020-04-12 21:38:00 36.83 Jasmin [facility] Respiratory rate 2020-04-12 21:38:00 18 /min [facility] Body height 2020-04-12 21:38:00 180.3 cm [facility] Body weight 2020-04-12 21:38:00 135.081 kg [facility] BMI 2020-04-12 21:38:00 41.53 kg/m2 [facility] Systolic blood 2020-03-29 21:46:00 95 mm[Hg] [facility] Diastolic blood 2020-03-29 21:46:00 55 mm[Hg] [facility] Heart rate 2020-03-29 21:46:00 83 /min [facility] Body temperature 2020-03-29 21:46:00 36.94 Jasmin [facility] Respiratory rate 2020-03-29 21:46:00 18 /min [facility] Body height 2020-03-29 21:46:00 180.3 cm [facility] Body weight 2020-03-29 21:46:00 134.265 kg [facility] BMI 2020-03-29 21:46:00 41.28 kg/m2 [facility] Systolic blood 2020-03-21 21:28:00 105 mm[Hg] [facility] Diastolic blood 2020-03-21 21:28:00 71 mm[Hg] [facility] Heart rate 2020-03-21 21:28:00 83 /min [facility] Body temperature 2020-03-21 21:28:00 36.67 Jasmin [facility] Respiratory rate 2020-03-21 21:28:00 16 /min [facility] Body height 2020-03-21 21:28:00 180.3 cm [facility] Body weight 2020-03-21 21:28:00 133.085 kg [facility] BMI 2020-03-21 21:28:00 40.92 kg/m2 [facility] Systolic blood 2020-03-14 18:01:00 112 mm[Hg] [facility] Diastolic blood 2020-03-14 18:01:00 71 mm[Hg] [facility] Heart rate 2020-03-14 18:01:00 73 /min [facility] Body temperature 2020-03-14 18:01:00 36.5 Jasmin [facility] Respiratory rate 2020-03-14 18:01:00 18 /min [facility] Body height 2020-03-14 18:01:00 180.3 cm [facility] Body weight 2020-03-14 18:01:00 132.904 kg [facility] BMI 2020-03-14 18:01:00 40.87 kg/m2 [facility] Systolic blood 2020-02-14 16:18:00 110 mm[Hg] [facility] Diastolic blood 2020-02-14 16:18:00 73 mm[Hg] [facility] Heart rate 2020-02-14 16:18:00 79 /min [facility] Body temperature 2020-02-14 16:18:00 36.94 Jasmin [facility] Respiratory rate 2020-02-14 16:18:00 18 /min Univ ersity of [facility] Body height 2020-02-14 16:18:00 175.3 cm [facility] [place] [facility] [place] Body weight 2020-02-14 16:18:00 128.822 kg [facility] BMI 2020-02-14 16:18:00 41.94 kg/m2 Universi ty of [facility] Systolic blood 2019-12-06 16:20:00 126 mm[Hg] Univer sity of pressure [facility] Diastolic blood 2019-12-06 16:20:00 80 mm[Hg] Unive rsity of pressure [facility] Heart rate 2019-12-06 16:20:00 99 /min [facility] Body temperature 2019-12-06 16:20:00 37.17 Jasmin [facility] Respiratory rate 2019-12-06 16:20:00 18 /min Univ [facility] of [facility] Body height 2019-12-06 16:20:00 180.3 cm [facility] Body weight 2019-12-06 16:20:00 124.286 kg [facility] BMI 2019-12-06 16:20:00 38.22 kg/m2 [facility] Systolic blood 2019-11-28 23:20:00 136 mm[Hg] Univer sity of pressure [facility] Diastolic blood 2019-11-28 23:20:00 76 mm[Hg] Unive rsity of pressure [facility] Heart rate 2019-11-28 23:20:00 81 /min [facility] Respiratory rate 2019-11-28 23:20:00 18 /min Univ ersity of [facility] Oxygen saturation in 2019-11-28 23:20:00 95 /min [facility] Arterial blood by [facility] Pulse oximetry Branch Body temperature 2019-11-28 20:43:00 37.28 Jasmin Univ [facility] Body height 2019-11-28 20:43:00 180.3 cm [facility] Body weight 2019-11-28 20:43:00 122.471 kg [facility] BMI 2019-11-28 20:43:00 37.66 kg/m2 [facility] Systolic blood 2019-11-03 14:20:00 134 mm[facility]Hg[facility] 2019-11-03 14:20:00 82 mm[Hg] [facility] Heart rate 2019-11-03 14:20:00 92 /min [facility] Body temperature 2019-11-03 14:20:00 36.67 Jasmin [facility] Respiratory rate 2019-11-03 14:20:00 16 /min [facility] Body height 2019-11-03 14:20:00 180.3 cm [facility] Body weight 2019-11-03 14:20:00 125.363 kg [facility] BMI 2019-11-03 14:20:00 38.55 kg/m2 [facility] Procedures Procedure Date / Time Performing Clinician Source Performed [place] TIME OR 2020-07-18 20:03:05 Belén Crespo [facility] (NON-REPORTABLE) [facility] LAPAROSCOPIC 2020-07-18 17:51:00 Belén Crespo [facility] CHOLECYSTECTOMY [facility] US ABDOMEN LIMITED 2020-07-18 13:22:57 Belén Crespo [facility] COVID-19 (ID NOW RAPID 2020-07-18 12:13:00 [place] TESTING) [facility] CT ABDOMEN PELVIS W 2020-07-18 11:51:38 Roshan [place] [facility] CONTRAST [facility] POCT TEST 2020-07-18 11:36:00 [facility] LIPASE 2020-07-18 11:26:00 [place] BILI UNCONJUGATED/BILI 2020-07-18 11:26:00 [place] CONJUG [facility] COMP. METABOLIC PANEL 2020-07-18 11:26:00 [place]han [place] [facility] ([id number]) [facility] CBC WITH DIFF 2020-07-18 11:26:00 [facility] URINALYSIS 2020-07-18 11:26:00 [facility] CONSENT/REFUSAL FOR 2020-07-18 11:10:36 Doctor Kris [facility] DIAGNOSIS AND TREATMENT [facility] ABDOMEN PELVIS W 2020-07-10 07:05:30 Matthias Bedolla [facility] CONTRAST Medical Branch LIPASE 2020-07-10 06:16:00 Matthias [facility] COMP. METABOLIC PANEL 2020-07-10 06:16:00 Matthias Bedolla [facility] ([id number]) [facility] [place] CBC WITH DIFF 2020-07-10 06:16:00 Matthias [facility] URINALYSIS 2020-07-10 06:16:00 Matthias [facility] POCT TEST 2020-07-10 06:00:00 Matthias Bedolla [facility] NOTICE OF PRIVACY 2020-07-10 05:38:40 Doctor Kris, [facility] CONSENT/REFUSAL FOR 2020-07-10 05:38:26 Doctor Unassrichie, [facility] NOTICE OF PRIVACY 2020-06-08 03:37:21 Doctor Unassigned, [facility] CONSENT/REFUSAL FOR 2020-06-08 03:37:05 Doctor Jasmynssigned, [facility] CONSENT/REFUSAL FOR 2020-06-08 03:37:02 Doctor Kris [facility] POCT TEST 2020-05-24 00:00:00 Ladonna Leyva [facility] CT CHEST PULMONARY 2020-05-18 08:55:26 Ekta Morse [facility] ANGIOGRAM Medical Branch LIPASE 2020-05-18 07:51:00 Ekta Morse [facility] TROPONIN I 2020-05-18 07:51:00 Ekta Morse [facility] HEPATIC FUNCTION PANEL 2020-05-18 07:51:00 Ekta Morse [facility] ([id number]) (ALB,T.PRO,BILI Medical Branch T,BU/BC,ALT,AST,ALK PHOS) BASIC METABOLIC PANEL (NA, 2020-05-18 07:51:00 Ekta Morse [facility] K, CL, CO2, GLUCOSE, BUN, Medica l Branch CREATININE, CA) CBC WITH DIFF 2020-05-18 07:51:00 Ekta Morse [facility] NOTICE OF PRIVACY 2020-05-18 07:05:35 Doctor Unassigned, [facility] CONSENT/REFUSAL FOR 2020-05-18 07:04:19 Doctor Unassigned, [facility] DIAGNOSIS AND TRE[facility] CONSENT/REFUSAL FOR 2020-05-18 07:04:14 Doctor Unassigned, [facility] BIOPHYSICAL PROFILE 2020-04-18 18:32:22 Rishi Singh [facility] NON-STRESS TEST 2020-04-17 01:03:44 Ladonna Leyva [facility] POCT URINALYSIS W/O 2020-04-16 00:00:00 Ladonna Leyva [facility] SPECIFIC GRAVITY [facility] NON-STRESS TEST 2020-04-13 01:37:29 Ladonna Leyva [facility] NON-STRESS TEST 2020-03-29 22:00:32 Darnell Ruy [facility] NON-STRESS TEST 2020-03-21 22:08:58 Darnell Ruy [facility] NON-STRESS TEST 2020-03-21 22:06:45 Ladonna Leyva [facility] SECOND AND THIRD TRIMESTER 2020-03-09 19:49:00 [facility] SECOND AND THIRD TRIMESTER 2020-03-01 19:32:00 Ladonna Leyva [facility] ULTRASOUND [facility] FLU VACC ([id number]), 6+ 2020-02-14 17:05:03 [facility], IM, QUAD Medical Branch TDAP VACCINE, >11 YRS, IM 2020-02-14 16:44:57 Ladonna Le[facility]va [facility] [place] [facility] SECOND AND THIRD TRIMESTER 2020-01-05 21:19:00 Leyva [facility] ULTR[facility] Medical Branch SECOND AND THIRD TRIMESTER 2020-01-05 20:51:00 Leyva, [facility]onna [facility] ULTR[facility] SECOND AND THIRD TRIMESTER 2020-01-05 20:44:00 Leyva, Ladonna Cam U [facility] Branch CONSENT TO CONTACT FOR 2019-12-06 16:09:25 Doctor Unassigned, [facility] VOLUNTARY RESEARCH [facility] 2019-11-28 23:13:00 Matthias [facility] COMP. METABOLIC PANEL 2019-11-28 21:47:00 Matthias Bedolla [facility] ([id number]) [facility] [place] CBC WITH DIFF 2019-11-28 21:47:00 [facility]ias [facility] NOTICE OF PRIVACY 2019-11-28 20:29:30 Doctor Unassrichie, [facility] CONSENT/REFUSAL FOR 2019-11-28 20:29:18 Doctor Unassrichie, [facility] DIAGNOSIS AND TREATMENT [facility] POCT URINALYSIS W/O 2019-11-03 14:11:00 Kelsey Wall [facility] [place] SPECIFIC GRAVITY [facility] POCT TEST 2019-11-03 14:10:00 Kelsey Wall Uni [facility] Encounters Start End Encounter Admission Attending Care Care Encounter Source Date/Time Date/Time Type Type Clinicians Facility Department ID 2021-02-24 Emergency [facility] [id number] Univers 08:03:59 ity of [facility] 2021-02-24 Emergency [facility] [id number] Univers 06:12:16 ity of [facility] 2021-02-23 Emergency [facility] [id number] Univers 23:13:52 ity of [facility] 2021-02-23 Emergency [facility] [id number] Univers 18:44:48 ity of [facility] 2021-02-23 Emergency [facility] [id number] Univers 14:23:18 ity of [facility] 2021-04-26 2021-04-26 Laboratory Only, Ang Db Test [facility] 1.2.8 40.114 [id number] Univers 13:00:00 13:15:00 [facility] [id number] ity [facility] [id number] Kostas as ROLANDO?BLEA [phone] Wi dic[address] MEDICAL OFFICE BUILDING 2021-04-26 2021-04-26 Outpatient R [facility] [id number] Univers 13:00:00 13:00:00 [id number] [facility] 2021-04-26 2021-04-26 [facility] [id number] Univers 13:00:00 13:00[facility]00 [facility] 2021-04-26 2021-04-26 [facility] [id number] Univers 12:50:00 12:50:00 [facility] 2020-08-14 2020-08-14 [facility] [id number] Univers 14:30:00 14:30:00 BELÉN [id number] [facility] 2020-08-13 2020-08-13 Office [facility] [id number] 08:41:30 09:13:07 Visit Belén Alyton [id number] [place] [id number] Professio [phone] 2020-08-13 2020-08-13 Office [facility] [id number] Univers 08:41:30 09:13:07 Visit Belén Lidia [id number] i ty of [id number] [phone] [facility] 188 Branch [facility] 2020-08-13 2020-08-13 Outpatient R ZAK [facility] [id number] Univers 08:45:00 08:45:00 BELÉN [id number] [facility] 2020-08-13 2020-08-13 Outpatient R ZAK [facility] [id number] Univers 08:45:00 08:45:00 BELÉN ity [facility] 2020-08-02 2020-08-02 Outpatient R ОЛЕГ, [facility] [id number] Univers 10:00:00 10:00:00 LORE [id number] jerrica o f [facility] 2020-08-02 2020-08-02 Outpatient R ОЛЕГ [facility] [id number] Univers 10:00:00 10:00:00 LORE becerril o f [facility] 2020-07-18 2020-07-19 Emergency Roshan [place] [facility] 1.2.840. [id number] Univers 06:12:00 11:15:00 Michael Agarwal [id number] ity of [id number] [phone] [place] [address] [place] 2020-07-17 2020-07-17 Patient George [facility] [id number] Univers 00:00:00 00:00:00 Outreach Jonny COMBS [id number] i ty of [facility] [id number] [place] [phone] Wi dical 388 Branch 2020-07-10 2020-07-10 Emergency [facility] [id number] Univers 00:45:00 03:37:00 Matthias Murillo [id number] i ty of [id number] [phone] [facility] 084 Branch 2020-07-10 2020-07-10 Orders Doctor SCHAEFFER [id number] Univers 00:00:00 00:00:00 Only Unassigned, JONE [id number] [facility]y of [facility] [id number] Kostas as [phone] [facility] 009 Branch 2020-06-21 2020-06-21 Outpatient Nikos PATRICK [facility] [id number] Univers 13:00:00 13:00:00 RUY [id number] [facility] 2020-06-21 2020-06-21 Outpatient R DARNELL [facility] [id number] Univers 13:00:00 13:00:00 [facility] 2020-06-16 2020-06-16 [id number] Univers 00:00:00 00:00:00 Ruy Murillo [id number] i ty of [id number] [phone] Wi dical nal [address] [facility] 2020-06-11 2020-06-11 Outpatient R [facility] [id number] Univers 13:00:00 13:00:00 [id number] ity [facility] 2020-06-11 2020-06-11 Outpatient R [facility] [id number] Univers 13:00:00 13:00:00 ity [facility] 2020-06-07 2020-06-07 [facility] [id number] Univers 21:44:00 23:54:00 Marissa Jordin Murillo [id number] i ty of [place] [id number] [phone] [facility] 084 [place] 2020-05-25 2020-05-25 Outpatient [facility] [id number] Univers 15:30:00 15:30:00 [id number] [facility] 2020-05-24 2020-05-24 [facility] [id number] Univers 16:32:42 17:20:48 Ruy Murillo [id number] ity of Visit [id number] [phone] Wi dical nal [address] [place] [address] 2020-05-24 2020-05-24 Outpatient R LADONNA LEYVA [facility] [id number] Univers 14:15:00 14:15:00 [id number] ity [facility] 2020-05-24 2020-05-24 Outpatient R LADONNA LEYVA [facility] [id number] Univers 14:15:00 14:15:00 ity [facility] 2020-05-22 2020-05-22 Outpatient R SANDRA [facility] [id number] Univers 16:30:00 16:30:00 JOSHUA [id number] ity [facility] 2020-05-22 2020-05-22 Outpatient R SANDRA [facility] [id number] Univers 16:30:00 16:30:00 JOSHUA ity [facility] 2020-05-18 2020-05-18 Outpatient [facility] [id number] Univers 15:30:00 15:30:00 [id number] [facility] 2020-05-18 2020-05-18 Emergency [facility] [id number] Univers 01:25:00 04:52:00 Ekta [id number] [facility] [id number] [facility] [phone] [place] [address] Branch 2020-05-15 2020-05-15 Outpatient IZZYNJ [facility] [id number] Univers 11:00:00 11:00:00 RUY [id number] ity [facility] 2020-05-15 2020-05-15 Outpatient Nikos PATRICK [facility] [id number] Univers 11:00:00 11:00:00 RUY ity [facility] 2020-05-11 2020-05-11 Outpatient [facility] [id number] Univers 15:30:00 15:30:00 [id number] ity [facility] 2020-05-10 2020-05-10 Outpatient [facility] [id number] Univers 15:00:00 15:00:00 [id number] ity [facility] 2020-05-07 2020-05-07 Outpatient [facility] [id number] Univers 15:00:00 15:00:00 [id number] ity [facility] 2020-05-04 2020-05-04 Outpatient [facility] [id number] Univers 15:30:00 15:30:00 [id number] ity [facility] 2020-05-03 2020-05-03 Outpatient [facility] [id number] Univers 15:00:00 15:00:00 [id number] ity [facility] 2020-05-02 2020-05-02 Nurse Nurse, [facility] [id number] Univers 14:01:32 14:32:49 Visit Ladonna Leyva [id number] ity [facility] [id number] [place] [phone] Wi dical nal [facility] 2020-05-02 2020-05-02 Outpatient R [facility] [id number] Univers 14:00:00 14:00:00 [id number] ity [facility] 2020-05-02 2020-05-02 Outpatient R [facility] [id number] Univers 14:00:00 14:00:00 ity of [facility] 2020-04-30 2020-04-30 Outpatient [facility] [id number] -[id number] Univers 15:00:00 15:00:00 [id number] ity of [facility] 2020-04-30 2020-04-30 Outpatient R [facility] [id number] Univers 10:00:00 10:00:00 ity of [facility] 2020-04-26 2020-04-26 Outpatient R [facility] [id number] -[id number] Univers 15:15:00 15:15:00 [id number] ity of [facility] 2020-04-26 2020-04-26 Outpatient R [facility] [id number] Univers 14:00:00 14:00:00 ity of [facility] 2020-04-23 2020-04-23 Outpatient [facility] [id number] -[id number] Univers 15:00:00 15:00:00 [id number] ity of [facility] 2020-04-23 2020-04-23 Outpatient P NORAH ZAMUDIO [facility] ZECHARIAH [id number] Univers 05:13:00 05:13:00 NORAH ZAMUDIO ity of [facility] 2020-04-18 2020-04-18 Outpatient R [facility] [id number] -[id number] Univers 15:15:00 15:15:00 [id number] ity [facility] 2020-04-18 2020-04-18 Outpatient R [facility] [id number] Univers 14:00:00 14:00:00 ity of [facility] 2020-04-18 2020-04-18 Initial Rishi SinghIT 1.2.840.114 [id number] Univers 11:38:03 13:17:26 Sona Figueredo Y HEALTH 350.1 .13.10 ity [place] [phone] [address] 2020-04-16 2020-04-16 Routine Room, [facility] 1.2.840.1 14 [id number] Univers 15:00:45 17:11:56 Ladonna Leyva [place] 350.1.13.10 ity of Visit [place] [phone] Wi dical nal [address] [place] [address] 2020-04-16 2020-04-16 Outpatient [facility] [id number] -[id number] Univers 15:00:00 15:00:00 [id number] ity of [facility] 2020-04-16 2020-04-16 Outpatient R LADONNA LEYVA [facility] [id number] Univers 15:00:00 15:00:00 ity of [facility] 2020-04-16 2020-04-16 Telephone RIC Singh 1.2.840.114 [id number] Univers 00:00:00 00:00:00 Rishi HEALTH 350.1.13.10 i ty of [place] [phone] [address] 2020-04-13 2020-04-13 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 Ultrasound, [facility] 1.2 .840.114 [id number] Univers 13:25:43 13:55:43 Visit Amada Hernandez 350.1.13.10 ity of [place] [phone] Wi dical nal [address] [place] [address] 2020-04-13 2020-04-13 Outpatient R [facility] [id number] -[id number] Univers 13:30:00 13:30:00 [id number] ity of [facility] 2020-04-13 2020-04-13 Outpatient P AMADA HERNANDEZ [facility] [id number] Univers 13:30:00 13:30:00 AMADA HERNANDEZ ity [facility] 2020-04-12 2020-04-12 Routine Room, [facility] 1.2.840.1 14 [id number] Univers 14:59:15 16:52:34 Ladonna Leyva [place] 350.1.13.10 ity of Visit [place] [phone] Wi dical [address] 2020-04-12 2020-04-12 Outpatient [facility] [id number] -[id number] Univers 15:00:00 15:00:00 [id number] ity [facility] 2020-04-12 2020-04-12 Outpatient R [facility] [id number] Univers 15:00:00 15:00:00 ity [facility] 2020-04-09 2020-04-09 Outpatient R [facility] [id number] -[id number] Univers 15:00:00 15:00:00 [id number] ity of [facility] 2020-04-09 2020-04-09 Outpatient R [facility] [id number] Univers 15:00:00 15:00:00 ity [facility] 2020-04-04 2020-04-04 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 [facility], [facility] 1.2 .840.114 [id number] Univers 09:54:38 10:24:38 Visit KarthikGtAmada MANAGER PEST 350.1.13.10 ity [facility] 4.2.7.2.686 [place] as MATERNAL [phone] Med ical & CHILD [address] [place] [address] 2020-04-04 2020-04-04 Outpatient R [facility] [id number] -[id number] Univers 10:00:00 10:00:00 [id number] ity [facility] 2020-04-04 2020-04-04 Outpatient P [facility] [id number] Univers 10:00:00 10:00:00 ity [facility] 2020-03-30 2020-03-30 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 Ultrasound, [facility] 1.2 .840.114 [id number] Univers 14:26:00 14:56:00 Visit Norah Zamudio 350.1.13.10 ity of [place] [phone] [address] 2020-03-30 2020-03-30 Outpatient R [facility] [id number] -[id number] Univers 14:30:00 14:30:00 ity of [facility] 2020-03-30 2020-03-30 Outpatient R [facility] [id number] Univers 14:30:00 14:30:00 ity of [facility] 2020-03-29 2020-03-29 Routine Room, [facility] 1.2.840.1 14 [id number] Univers 14:58:43 16:00:14 Ladonna Leyva Faizan Murillo 350.1.13.10 ity of Visit [place] [phone] [address] 2020-03-29 2020-03-29 Outpatient [facility] [id number] -[id number] Univers 15:00:00 15:00:00 ity of [facility] 2020-03-29 2020-03-29 Outpatient R [facility] [id number] Univers 15:00:00 15:00:00 ity of [facility] 2020-03-28 2020-03-28 Case Ladonna Leyva [facility] 1.2.053.298 [id number] Univers 00:00:00 00:00:00 Management Faizan Murillo 350.1.13.10 ity of [place] [phone] [address] 2020-03-27 2020-03-27 Outpatient R [facility] [id number] -[id number] Univers 15:00:00 15:00:00 ity [facility] 2020-03-26 2020-03-26 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 Ultrasound, John [facility] 1.2 .840.114 [id number] Univers 15:09:46 15:33:40 Visit Mayra Pinto MANAGER PEST 350.1. 13.10 ity of [facility] 4.2.7.2.686 [place]ost[place] as MATERNAL [phone] Med ical & CHILD [address] [facility] 2020-03-26 2020-03-26 Outpatient R [facility] [id number] -[id number] Univers 14:45:00 14:45:00 [id number] ity of [facility] 2020-03-26 2020-03-26 Outpatient P [facility] [id number] Univers 14:45:00 14:45:00 ity of [facility] 2020-03-21 2020-03-21 Routine Room, [facility] 1.2.840.1 14 [id number] Univers 15:01:47 15:56:49 Ladonna Leyva Cam [place] 350.1.13.10 ity of Visit [place] 4.2.7.2.686 Mame Herrera [phone] Wi dical [address] 2020-03-21 2020-03-21 Outpatient R [facility] [id number] -[id number] Univers 15:00:00 15:00:00 [id number] ity of [facility] 2020-03-21 2020-03-21 Outpatient R [facility] [id number] Univers 15:00:00 15:00:00 ity of [facility] 2020-03-19 2020-03-19 Outpatient R [facility] [id number] -[id number] Univers 15:00:00 15:00:00 [id number] ity of [facility] 2020-03-19 2020-03-19 Outpatient R [facility] [id number] Univers 15:00:00 15:00:00 ity of [facility] 2020-03-19 2020-03-19 [facility] [id number] Univers 00:00:00 00:00:00 RUY ity [facility] 2020-03-15 2020-03-15 Outpatient R [facility] [id number] -[id number] Univers 15:00:00 15:00:00 [id number] ity of [facility] 2020-03-15 2020-03-15 Outpatient R [facility] [id number] Univers 15:00:00 15:00:00 ity of [facility] 2020-03-14 2020-03-14 Routine Room, [facility] 1.2.840.1 14 [id number] Univers 11:24:52 12:51:24 Ladonna Leyvaton 350.1.13.10 ity of [place] [phone] Wi dical nal [address] [place] [address] 2020-03-14 2020-03-14 Outpatient R LADONNA LEYVA [facility] [id number] Univers 11:15:00 11:15:00 [id number] ity of [facility] 2020-03-14 2020-03-14 Outpatient R LADONNA LEYVA [facility] [id number] Univers 11:15:00 11:15:00 ity of [facility] 2020-03-14 2020-03-14 Outpatient R [facility] [id number] Univers 11:00:00 11:00:00 ity of [facility] 2020-03-14 2020-03-14 [facility] 1.2.204.432 [id number] Univers 00:00:00 00:00:00 (Out) Ruy Murillo 350.1.13.10 i ty of [place] [phone] Wi dical [address] 2020-03-13 2020-03-13 Outpatient R [facility] [id number] Univers 15:00:00 15:00:00 [id number] ity of [facility] 2020-03-13 2020-03-13 Outpatient R [facility] [id number] Univers 15:00:00 15:00:00 ity of [facility] 2020-03-09 2020-03-09 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 5, [facility] Room UNIVERSIT 1 .2.840.114 [id number] Univers 13:26:10 14:23:[address] [facility] 350.1.13.10 ity of [place] [phone] [address] 2020-03-09 2020-03-09 Outpatient R [facility] [id number] -[id number] Univers 13:00:00 13:00:00 [id number] ity of [facility] 2020-03-09 2020-03-09 Outpatient P [facility] [id number] Univers 13:00:00 13:00:00 ity [facility] 2020-03-09 2020-03-09 Telephone Ladonna Leyva [facility] 1.2.840.114 [id number] Univers 00:00:00 00:00:00 Faizan Cable 350.1.13.10 i ty of [place] [phone] Wi dical nal [address] [facility] 2020-03-02 2020-03-02 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 2, [facility] 1.2.840.114 [id number] Univers 10:17:56 10:32:56 Visit Ladonna Leyva 350.1.13.10 ity of [place] [phone] Wi dical nal [address] [facility] 2020-03-02 2020-03-02 Outpatient R [facility] [id number] -[id number] Univers 10:15:00 10:15:00 ity [facility] 2020-03-02 2020-03-02 Outpatient R LADONNA LEYVA [facility] [id number] Univers 10:15:00 10:15:00 ity [facility] 2020-03-01 2020-03-01 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 3, [facility] Room UNIVERSIT 1 .2.840.114 [id number] Univers 12:58:02 13:44:17 Visit [facility] 350.1.13.10 ity of [facility] [place].7.[place] [phone] [address] 2020-03-01 2020-03-01 Outpatient R [facility] [id number] -[id number] Univers 13:00:00 13:00:00 ity [facility] 2020-03-01 2020-03-01 Outpatient P [facility] [id number] Univers 13:00:00 13:00:00 ity of [facility] 2020-02-20 2020-02-20 Outpatient R [facility] [id number] -[id number] Univers 11:30:00 11:30:00 [id number] ity [facility] 2020-02-20 2020-02-20 Outpatient R [facility] [id number] Univers 11:30:00 11:30:00 ity of [facility] 2020-02-14 2020-02-14 Routine [facility] 1.2.360.671 [id number] Univers 11:08:11 12:13:04 Faizan Murillo 350.1.13.10 ity of Visit [place] [phone] [address] 2020-02-14 2020-02-14 Outpatient R GORDON LADONNA [facility] [id number] Univers 11:15:00 11:15:00 ity [facility] 2020-02-14 2020-02-14 Outpatient R GORDON LADONNA [facility] [id number] Univers 11:15:00 11:15:00 ity [facility] 2020-01-16 2020-01-16 Outpatient R DARNELL [facility] [id number] Univers 08:00:00 08:00:00 [facility] [id number] [facility] 2020-01-[facility] 2020-01-16 Outpatient R DARNELL [facility] [id number] Univers 08:00:00 08:00:00 [facility] 2020-01-09 2020-01-09 Outpatient R DARNELL [facility] [id number] Univers 16:00:00 16:00:00 RUY [id number] [facility] 2020-01-09 2020-01-09 Outpatient R DARNELL [facility] [id number] Univers 16:00:00 16:00:00 [facility] 2020-01-05 2020-01-06 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 1, [facility] Room UNIVERSIT 1 .2.840.114 [id number] Univers 14:15:37 08:27:56 Visit [facility] 350.1.13.10 ity of [place] [phone] [address] 2020-01-05 2020-01-05 Outpatient R [facility] [id number] -[id number] Univers 14:15:00 14:15:00 ity [facility] 2020-01-05 2020-01-05 Outpatient P [facility] [id number] Univers 14:15:00 14:15:00 ity of [facility] 2020-01-04 2020-01-05 Office 2, [facility] Genetic Consults UNIVERS IT 1.2.840.114 [id number] Univers 12:14:02 09:23:[address] [facility] 350.1.13.10 ity of [place] [phone] [address] 2020-01-04 2020-01-04 Outpatient R [facility] [id number] -[id number] Univers 13:00:00 13:00:00 ity of [facility] 2020-01-04 2020-01-04 Outpatient P [facility] [id number] Univers 13:00:00 13:00:00 ity of [facility] 2020-01-03 2020-01-03 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 Ultrasound, [facility] 1.2 .840.114 [id number] Univers 08:15:39 09:15:39 Visit Mayra Pinto MANAGER PEST 350.1. 13.10 ity of REGIONAL 4.2.7.2.686 [place] as MATERNAL [phone] Med ical & CHILD [address] [place] [address] 2020-01-03 2020-01-03 Outpatient R [facility] [id number] Univers 08:00:00 08:00:00 ity of [facility] 2020-01-03 2020-01-03 Outpatient R [facility] [id number] Univers 08:00:00 08:00:00 ity of [facility] 2019-12-12 2019-12-12 Outpatient R [facility] [id number] Univers 11:00:00 11:00:00 [id number] ity of [facility] 2019-12-12 2019-12-12 Outpatient R [facility] [id number] Univers 11:00:00 11:00:00 ity of [facility] 2019-12-06 2019-12-06 Initial Ladonna Leyva [facility] 1.2.838.421 [id number] Univers 11:08:00 12:04:06 Cam Cable 350.1.13.10 ity of Visit [place] [phone] Wi dical [address] 2019-12-06 2019-12-06 Outpatient Nikos LADONNA LEYVA [facility] [id number] Univers 11:00:00 11:00:00 [id number] ity of [facility] 2019-12-06 2019-12-06 Outpatient Nikos GORDON LADONNA [facility] [id number] Univers 11:00:00 11:00:00 ity of [facility] 2019-12-06 2019-12-06 Orders Doctor LAURY 1.2.840.114 [id number] Univers 00:00:00 00:00:00 Only Unassigned, JONE 350.1.13.10 ity of [facility] 4.2.7.2.686 Kostas as [phone] [address] 2019-11-28 2019-11-28 Emergency [facility] 1.2.041.189 [id number] Univers 16:03:00 19:22:00 Matthias Murillo 350.1.13.10 i ty of [place] Portal [phone] [address] 2019-11-28 2019-11-28 Orders Doctor LAURY 1.2.840.114 [id number] Univers 00:00:00 00:00:00 Only Unassigned, JONE 350.1.13.10 ity of [facility] 4.2.7.2.686 [place] as [phone] [address] 2019-11-22 2019-11-22 [facility] 1.2.840.114 [id number] Univers 00:00:00 00:00:00 Kelsey C MANAGER PEST 350.1.13.10 ity of [facility] 4.2.7.2.686 [place]ost[place] as MATERNAL [phone] Med ical & CHILD 107 [facility] 2019-11-22 2019-11-22 Telephone Pob1, Acute [facility] 1.2.840.114 [id number] Univers 00:00:00 00:00:00 [facility] 350.1.13.10 ity of [place] 4.2.7.2.686 [place]ost[place] as Professio [phone] Wi dical nal 044 [facility] 2019-11-18 2019-11-18 Laboratory Lab, Adc Fam Pob I [facility] 1.2. 840.114 [id number] Univers 10:40:23 11:00:23 Only Amada Hernandez [facility] 350.1.13.10 ity [facility] 4.2.7.2.686 Kostas as Professio [phone] Wi dical nal 044 [facility] 2019-11-18 2019-11-18 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 Ultrasound, Ang-Mfm [facility] 1.2 .840.114 [id number] Univers 10:00:28 10:24:10 Visit Amada Hernandez MANAGER PEST 350.1.13.10 ity of [facility] 4.2.7.2.686 Kostas as MATERNAL [phone] Med ical & CHILD [address] [place] [address] 2019-11-18 2019-11-18 Outpatient P [facility] [id number] Univers 10:00:00 10:00:00 [id number] ity of [facility] 2019-11-18 2019-11-18 Outpatient P [facility] [id number] Univers 10:00:00 10:00:00 ity of [facility] 2019-11-10 2019-11-10 Outpatient R [facility] [id number] -[id number] Univers 14:45:00 14:45:00 [id number] ity of [facility] 2019-11-10 2019-11-10 Outpatient P [facility] [id number] Univers 14:45:00 14:45:00 ity of [facility] 2019-11-07 2019-11-07 Telephone Akinpe, [facility] 1.2.840.114 [id number] Univers 00:00:00 00:00:00 Kelsey C MANAGER PEST 350.1.13.10 ity of [facility] 4.2.7.2.686 Kostas as MATERNAL [phone] [facility] ical & CHILD 107 [facility] 2019-11-03 2019-11-03 Initial Akinsipe, [facility] 1.2.162.847 [id number] Univers 09:02:46 10:40:27 Kelsey C MANAGER PEST 350.1.13.10 ity of Visit REGIONAL 4.2.7.2.686 [place]ost[place] as MATERNAL [phone] Med ical & CHILD [address] [place] [address] 2019-11-03 2019-11-03 Outpatient Nikos WALL [facility] [id number] Univers 08:30:00 08:30:00 KELSEY becerril o deborah [facility] 2018-01-27 2018-01-27 Outpatient Ngozi Melvint [id number] Common 16:01:00 16:01:00 [facility] [address] [facility] 2018-01-26 2018-01-26 Outpatient Antonmaggi [place] [id number] Common 13:20:00 13:20:00 t [facility] [address] [facility] 2017-11-18 2017-11-18 Outpatient Ngozi Melvint [id number] Common 15:15:00 15:15:00 [facility] Sp[facility] [address] [facility] Results Test Test Test Results Result Source Description Time Comments Comments FL TIME OR 2020-06- These images do not require University of (NON-REPORTABLE 24 a Radiology diagnostic [facility] ) 20:04:28 report. Branch US ABDOMEN 2020-06- Cholelithiasis without U niversity of LIMITED 24 sonographic evidence for [facility] 13:51:23 acute cholecystitis. Mild Branch [...] Comme nts BILI CONJ (test code = 4522729434) 0.0 mg/dL 0.0-0.3 BILI UNCON (test code = 0818716773) 0.6 mg/dL 0.1-1.1 Lab Interpretation (test code = 34769-2) Normal [facility]ID [facility]ING)2020-07-18 13:20:12 Test Item Value Reference Range Interpretation Comments SARS-CoV-2 Rapid ID NOW Not Detected Not Detected (test code = 84738-2) TRISTON (test code = TRISTON) ID NOW COVID-19 Assay is an isothermal nucleic acid amplification test intended for the qualitative detection of nucleic acid from SARS-CoV-2 viral RNA in nasopharyngeal (FASHION CONSULTANT SELLING) specimens. It is used under Emergency Use [...] indicated. Lab Interpretation Normal (test code = 55222-6) [facility] 12:30:58 Test Item Value Reference Range Interpretation Comments APPEARANCE (test code = Clear Clear 1127550490) COLOR (test code = Yellow Yellow 5432667631) PH (test code = 4.8-8.0 0183101723) SP GRAVITY (test code = 1.003-1.030 5105677304) GLU U QUAL (test code = Normal Normal 6172319883) BLOOD (test code = Negative Negative 2473924656) KETONES (test code = Negative Negative 4933919305) PROTEIN (test code = Negative Negative 2887-8) UROBILIN (test code = Normal Normal 8832905709) BILIRUBIN (test code = Negative Negative 3907806109) NITRITE (test code = Negative Negative 7580603831) LEUK VAHID (test code = 250/uL Negative A 4315629463) RBC/HPF (test code = See_Comment H [Autom ated message] 3961866539) The system [employer] generated this result transmitted ref erence range: 0 - 3 HP F. The reference range was not used to int erpret this result as normal/abnormal . WBC/HPF (test code = See_Comment H [Autom ated message] 5913199786) The system [employer] generated this result transmitted ref erence range: 0 - 5 HP F. The reference range was not used to int erpret this result as normal/abnormal . BACTERIA (test code = Few Negative A 7271087938) SQ EPITH (test code = HPF 6626437353) Lab Interpretation (test Abnormal code = 51334-4) [facility]OLIC PANEL (56790)2020-07-18 12:30:33 Test Item Value Reference Range Interpretation Comments NA (test code = 140 mmol/L 135-145 3614759785) K (test code = 4.2 mmol/L 3.5-5.0 2111275724) CL (test code = 108 mmol/L 98-108 6362268514) CO2 TOTAL (test code = 24 mmol/L 23-31 2505098685) AGAP (test code = 2-16 0343295686) BUN (test code = 13 mg/dL 7-23 5850627241) GLUCOSE (test code = 101 mg/dL 70-110 5952352840) CREATININE (test code = 0.47 mg/dL 0.50-1.04 L 7316218862) TOTAL BILI (test code = 0.8 mg/dL 0.1-1.2 3085434269) CALCIUM (test code = 8.7 mg/dL 8.6-10.6 6960702463) T PROTEIN (test code = 7.2 g/dL 6.3-8.2 0629851058) ALBUMIN (test code = 4.4 g/dL 3.5-5.0 0690596092) ALK PHOS (test code = 169 U/L 34-122 H 9109480503) ALTv (test code = 79 U/L 5-35 H 1742-6) AST(SGOT) (test code = 37 U/L 13-40 4218156006) eGFR Calculation mL/min/1.73m2 (Non-) (test code = 2767058295) eGFR Calculation mL/min/1.73m2 () (test code = 9897269182) TRISTON (test code = TRISTON) Association of [...] tests). Lab Interpretation Abnormal (test code = 57159-1) [facility] 12:18:04 Test Item Value Reference Range Interpretation Comments LIPASE (test code = 6762147982) 127 U/L 0-220 Lab Interpretation (test code = Normal 33664-6) [facility] WITH [id number] 11:56:46 Test Item Value Reference Range Interpretation [...] RDW-SD (test code = 42.2 fL 39.0-49.9 42509-9) RDW-CV (test code = 12.6 % 12.0-15.5 788-0) PLT (test code = See_Comment [Automated 777-3) message] The sy stem which generated this result transmitted reference range : 166 - 358 10*3/ ?L. The reference r dejuan was not used to interpret this result as normal/abnormal . MPV (test code = 11.0 fL 9.5-12.9 48568-7) NRBC/100 WBC (test See_Comment [Automat ed code = 0211478706) message] The system which generated this result transmitted reference range : 0.0 - 10.0 /100 WBCs. The refer ence range was not u sed to interpret th is result as normal/abnormal . NRBC x10^3 (test code <0.01 See_Comment [Auto mated = 9487473374) message] The s ystem which generated this result transmitted reference range : 10*3/?L. The reference range was not used to interpret this result as normal/abnormal . GRAN MAT (NEUT) % 73.4 % (test code = 770-8) IMM GRAN % (test code 0.40 % = 9832863736) LYMPH % (test code = 19.4 % 736-9) MONO % (test code = 4.8 % 5905-5) EOS % (test code = 1.5 % 713-8) BASO % (test code = 0.5 % 706-2) GRAN MAT x10^3(ANC) 8.01 10*3/uL 1.88-7.09 H (test code = [id number]) IMM GRAN x10^3 (test 0.04 10*3/uL 0.00-0.06 code = [id number]) LYMPH x10^3 (test code 2.12 10*3/uL 1.32-3.29 = 731-0) MONO x10^3 (test code 0.52 10*3/uL 0.33-0.92 = 742-7) EOS x10^3 (test code = 0.16 10*3/uL 0.03-0.39 711-2) BASO x10^3 (test code 0.05 10*3/uL 0.01-0.07 = 704-7) Lab Interpretation Abnormal (test code = 55088-0) [id number]36:00 Test Item Value Reference Range Interpretation Comments POCT PREG (test code = 1605) Negative On board controls acceptable with Present C Line (test code = 3574) POCT PREG LOT # (test code = HCG [id number]) POCT PREG TEST DATE (test 12/25/2021 code = 3576) Lab Interpretation (test code = Normal 36263-1) [facility] ABDOMEN PELVIS W [id number] 08:04:39 No acute process identified in the abdomen or pelvis. Cholelithiasis without CT evidence for acute cholecystitis. RL: 460 AFC: [id number] Ordering physician: MATTHIAS BEDOLLA Indication: Acute abdominal [...] abdomen and pelvis demonstrate no osseousdestructive lesion. [facility], Radiant Results Inft User - 07/10/2020 3:05 [...] without CT evidence for acute cholecystitis.RL: 460AF: [id number] Electronically signed by Griselda Varner MD, PhD at07/10/2020 3:04 AMUnThe [facility] [id number] 06:46:26 Test Item Value Reference Range Interpretation Comments APPEARANCE (test code = Cloudy Clear A 8715755798) COLOR (test code = Yellow Yellow 5560492368) PH (test code = 4.8-8.0 5704064520) SP GRAVITY (test code = 1.003-1.030 2109660604) GLU U QUAL (test code = Normal Normal 8653930087) BLOOD (test code = Negative Negative 3687520635) KETONES (test code = Negative Negative 2577127062) PROTEIN (test code = Negative Negative 2887-8) UROBILIN (test code = Normal Normal 7613912507) BILIRUBIN (test code = Negative Negative 0730660364) NITRITE (test code = Negative Negative 1438055238) LEUK VAHID (test code = 25/uL Negative A 5917463183) RBC/HPF (test code = See_Comment [Autom ated message] 9487435685) The system [employer] generated this result transmitted ref erence range: 0 - 3 HP F. The reference range was not used to int erpret this result as normal/abnormal . WBC/HPF (test code = See_Comment H [Autom ated message] 9293953970) The system [employer] generated this result transmitted ref erence range: 0 - 5 HP F. The reference range was not used to int erpret this result as normal/abnormal . BACTERIA (test code = Many Negative A 5672601000) MUCOUS (test code = Slight Negative LPF A 3995995037) AMORPHOUS (test code = Moderate Rare HPF A 7634744763) SQ EPITH (test code = HPF 5407426098) Lab Interpretation (test Abnormal code = 68993-1) [facility]. METABOLIC PANEL (30085)2020-07-10 06:33:53 Test Item Value Reference Range Interpretation Comments NA (test code = 139 mmol/L 135-145 5585584279) K (test code = 3.7 mmol/L 3.5-5.0 1084480745) CL (test code = 102 mmol/L 98-108 1465659136) CO2 TOTAL (test code = 29 mmol/L 23-31 8034019166) AGAP (test code = 2-16 0665959748) BUN (test code = 12 mg/dL 7-23 5765350272) GLUCOSE (test code = 118 mg/dL 70-110 H 6050754783) CREATININE (test code = 0.67 mg/dL 0.50-1.04 8811140080) TOTAL BILI (test code = 0.6 mg/dL 0.1-1.4 6493530141) CALCIUM (test code = 9.2 mg/dL 8.6-10.6 8517928614) T PROTEIN (test code = 7.2 g/dL 6.3-8.2 3460542554) ALBUMIN (test code = 4.6 g/dL 3.5-5.0 1256137528) ALK PHOS (test code = 168 U/L 34-122 H 9435970530) ALTv (test code = 111 U/L 5-35 H 1742-6) AST(SGOT) (test code = 30 U/L 13-40 5018758458) eGFR Calculation mL/min/1.73m2 (Non-) (test code = 3354413163) eGFR Calculation mL/min/1.73m2 () (test code = 7416978244) TRISTON (test code = TRISTON) Association of [...] tests). Lab Interpretation Abnormal (test code = 01605-5) [facility]18 Test Item Value Reference Range Interpretation Comments LIPASE (test code = 8119521326) 85 U/L 0-220 Lab Interpretation (test code = Normal 87098-6) [facility] WITH [id number] 06:24:16 Test Item Value Reference Range Interpretation [...] RDW-SD (test code = 43.1 fL 39.0-49.9 83426-1) RDW-CV (test code = 12.6 % 12.0-15.5 788-0) PLT (test code = See_Comment [Automated 777-3) message] The sy stem which generated this result transmitted reference range : 166 - 358 10*3/ ?L. The reference r dejuan was not used to interpret this result as normal/abnormal . MPV (test code = 10.1 fL 9.5-12.9 45579-0) NRBC/100 WBC (test See_Comment [Automat ed code = 8530746147) message] The system which generated this result transmitted reference range : 0.0 - 10.0 /100 WBCs. The refer ence range was not u sed to interpret th is result as normal/abnormal . NRBC x10^3 (test code <0.01 See_Comment [Auto mated = 6430495270) message] The s ystem which generated this result transmitted reference range : 10*3/?L. The reference range was not used to interpret this result as normal/abnormal . GRAN MAT (NEUT) % 83.3 % (test code = 770-8) IMM GRAN % (test code 0.30 % = 8110479696) LYMPH % (test code = 12.4 % 736-9) MONO % (test code = 2.8 % 5905-5) EOS % (test code = 0.8 % 713-8) BASO % (test code = 0.4 % 706-2) GRAN MAT x10^3(ANC) 9.80 10*3/uL 1.88-7.09 H (test code = 5475206452) IMM GRAN x10^3 (test 0.04 10*3/uL 0.00-0.06 code = 1954157305) LYMPH x10^3 (test code 1.46 10*3/uL 1.32-3.29 = 731-0) MONO x10^3 (test code 0.33 10*3/uL 0.33-0.92 = 742-7) EOS x10^3 (test code = 0.09 10*3/uL 0.03-0.39 711-2) BASO x10^3 (test code 0.05 10*3/uL 0.01-0.07 = 704-7) Lab Interpretation Abnormal (test code = 83059-0) [facility] [id number] 06:00:00 Test Item Value Reference Range Interpretation Comments POCT PREG (test code = 1605) negative On board controls acceptable with present C Line (test code = 3574) POCT PREG LOT # (test code = 3575) [id number] POCT PREG TEST DATE (test 2022-02-24 code = 3576) Lab Interpretation (test code = Normal 25232-3) [facility] [id number] 22:58:00 Test Item Value Reference Range Interpretation Comments POCT PREG (test code = 1605) Negative On board controls acceptable with C Yes Line (test code = 3574) POCT PREG LOT # (test code = 3575) POCT PREG TEST DATE (test code = 3576) Lab Interpretation (test code = Normal 74440-6) [facility] [id number] 22:58:00 Test Item Value Reference Range Interpretation Comments POCT PREG (test code = 1605) Negative On board controls acceptable with C Yes Line (test code = 3574) POCT PREG LOT # (test code = 3575) POCT PREG TEST DATE (test code = 3576) Lab Interpretation (test code = Normal 67042-7) [facility] [id number] 22:58:00 Test Item Value Reference Range Interpretation Comments POCT PREG (test code = 1605) Negative On board controls acceptable with C Yes Line (test code = 3574) POCT PREG LOT # (test code = 3575) POCT PREG TEST DATE (test code = 3576) Lab Interpretation (test code = Normal 32546-4) [facility] [id number] 22:58:00 Test Item Value Reference Range Interpretation Comments POCT PREG (test code = 1605) Negative On board controls acceptable with C Yes Line (test code = 3574) POCT PREG LOT # (test code = 3575) POCT PREG TEST DATE (test code = 3576) Lab Interpretation (test code = Normal 22702-2) [facility]Hep[facility] (ALB, T.PRO, BILI T, BU/BC, ALT, AST, ALK PHOS)2020-05-18 08:40:00 Test Item Value Reference Range Interpretation Comments TOTAL BILI (test code = 0675838340) 0.5 mg/dL 0.1-1.1 BILI UNCON (test code = 1809416687) 0.3 mg/dL 0.1-1.1 BILI CONJ (test code = 6220912587) 0.0 mg/dL 0-0.3 T PROTEIN (test code = 9621381794) 6.9 g/dL 6.3-8.2 ALBUMIN (test code = 0005656422) 4.0 g/dL 3.5-5 ALK PHOS (test code = 5874977931) 188 U/L 34-122 H ALTv (test code = 1742-6) 228 U/L 5-35 H AST(SGOT) (test code = 5340484608) 104 U/L 13-40 H Lab Interpretation (test code = Abnormal 19988-3) [facility] (ALB, T.PRO, BILI T, BU/BC, ALT, AST, ALK PHOS)2020-05-18 08:40:00 Test Item Value Reference Range Interpretation Comments TOTAL BILI (test code = 8939475244) 0.5 mg/dL 0.1-1.1 BILI UNCON (test code = 8514623505) 0.3 mg/dL 0.1-1.1 BILI CONJ (test code = 5072239219) 0.0 mg/dL 0-0.3 T PROTEIN (test code = 4218052380) 6.9 g/dL 6.3-8.2 ALBUMIN (test code = 1615264022) 4.0 g/dL 3.5-5 ALK PHOS (test code = 7141489220) 188 U/L 34-122 H ALTv (test code = 1742-6) 228 U/L 5-35 H AST(SGOT) (test code = 4734124697) 104 U/L 13-40 H Lab Interpretation (test code = Abnormal 89254-9) [facility] (NA, K, CL, CO2, GLUCOSE, BUN, CREATININE, CA)2020-05-18 08:39:00 Test Item Value Reference Range Interpretation Comments NA (test code = 138 mmol/L 135-145 8333435251) K (test code = 3.9 mmol/L 3.5-5 0097977320) CL (test code = 105 mmol/L 98-108 3787244041) CO2 TOTAL (test code = 24 mmol/L 23-31 3735627550) AGAP (test code = 2-16 6022254931) BUN (test code = 13 mg/dL 7-23 6340029689) GLUCOSE (test code = 103 mg/dL 70-110 0792023128) CREATININE (test code 0.78 mg/dL 0.5-1.04 = 9942908409) CALCIUM (test code = 8.9 mg/dL 8.6-10.6 3087522095) eGFR Calculation mL/min/1.73m2 (Non-) (test code = 6997936174) eGFR Calculation mL/min/1.73m2 () (test code = 3221379786) TRISTON (test code = TRISTON) Association of [...] or urine or abnormalities in imaging tests). [facility] RegionalLip[facility] [id number] 08:39:00 Test Item Value Reference Range Interpretation Comments LIPASE (test code = 7941660619) 108 U/L 0-220 Lab Interpretation (test code = Normal 66051-8) [facility] RegionalTroponin [id number] 08:39:00 Test Item Value Reference Range Interpretation Comments TROPONIN I (test <0.012 See_Comment [Automated code = 8670813152) message] The system which generated this result [...] ? Lab Interpretation Normal (test code = 39639-7) [facility] RegionalBasi Met[facility] (NA, K, CL, CO2, GLUCOSE, BUN, CREATININE, CA)2020-05-18 08:39:00 Test Item Value Reference Range Interpretation Comments NA (test code = 138 mmol/L 135-145 0415401627) K (test code = 3.9 mmol/L 3.5-5 4718675466) CL (test code = 105 mmol/L 98-108 8608362398) CO2 TOTAL (test code = 24 mmol/L 23-31 3105885994) AGAP (test code = 2-16 9838394014) BUN (test code = 13 mg/dL 7-23 5988922824) GLUCOSE (test code = 103 mg/dL 70-110 8764905433) CREATININE (test code 0.78 mg/dL 0.5-1.04 = 1980705809) CALCIUM (test code = 8.9 mg/dL 8.6-10.6 1749687726) eGFR Calculation mL/min/1.73m2 (Non-) (test code = 3764261989) eGFR Calculation mL/min/1.73m2 () (test code = 0248681443) TRISTON (test code = TRISTON) Association of [...] or urine or abnormalities in imaging tests). [facility] RegionalLipase [id number] 08:39:00 Test Item Value Reference Range Interpretation Comments LIPASE (test code = 9547286445) 108 U/L 0-220 Lab Interpretation (test code = Normal 78445-8) [facility] RegionalTroponin [id number] 08:39:00 Test Item Value Reference Range Interpretation Comments TROPONIN I (test <0.012 See_Comment [Automated code = 9377522715) message] The system which generated this result [...] ? Lab Interpretation Normal (test code = 02843-2) [facility] with [id number] 08:09:00 Test Item Value Reference Range Interpretation Comments WBC (test code = See_Comment H [Automated 90-2) message] The sy stem which generated this result transmitted reference range : 4.30 - 11.10 10*3/?L. The reference range was not used to interpret this result as normal/abnormal . RBC (test code = See_Comment [Automated 719-8) message] The sy stem which generated this [...] RDW-SD (test code = 40.8 fL 39-49.9 24193-0) RDW-CV (test code = 11.9 % 12-15.5 L 788-0) PLT (test code = See_Comment [Automated 777-3) message] The sy stem which generated this result transmitted reference range : 166 - 358 10*3/ ?L. The reference r djeuan was not used to interpret this result as normal/abnormal . MPV (test code = 12.2 fL 9.5-12.9 28125-2) NRBC/100 WBC (test See_Comment [Automat ed code = 6386922378) message] The system which generated this result transmitted reference range : 0.0 - 10.0 /100 WBCs. The refer ence range was not u sed to interpret th is result as normal/abnormal . NRBC x10^3 (test code <0.01 See_Comment [Auto mated = 2293899696) message] The s ystem which generated this result transmitted reference range : 10*3/?L. The reference range was not used to interpret this result as normal/abnormal . GRAN MAT (NEUT) % 73.1 % (test code = 770-8) IMM GRAN % (test code 0.40 % = 2180653919) LYMPH % (test code = 20.3 % 736-9) MONO % (test code = 3.7 % 5905-5) EOS % (test code = 2.1 % 713-8) BASO % (test code = 0.4 % 706-2) GRAN MAT x10^3(ANC) 8.18 10*3/uL 1.88-7.09 H (test code = 6583102125) IMM GRAN x10^3 (test 0.05 10*3/uL 0-0.06 code = 9204082190) LYMPH x10^3 (test code 2.28 10*3/uL 1.32-3.29 = 731-0) MONO x10^3 (test code 0.42 10*3/uL 0.33-0.92 = 742-7) EOS x10^3 (test code = 0.23 10*3/uL 0.03-0.39 711-2) BASO x10^3 (test code 0.05 10*3/uL 0.01-0.07 = 704-7) Lab Interpretation Abnormal (test code = 88864-6) [facility] with [id number] 08:09:00 Test Item Value Reference Range Interpretation [...] RDW-SD (test code = 40.8 fL 39-49.9 46602-2) RDW-CV (test code = 11.9 % 12-15.5 L 788-0) PLT (test code = See_Comment [Automated 777-3) message] The sy stem which generated this result transmitted reference range : 166 - 358 10*3/ ?L. The reference r dejuan was not used to interpret this result as normal/abnormal . MPV (test code = 12.2 fL 9.5-12.9 33860-0) NRBC/100 WBC (test See_Comment [Automat ed code = 8918438526) message] The system which generated this result transmitted reference range : 0.0 - 10.0 /100 WBCs. The refer ence range was not u sed to interpret th is result as normal/abnormal . NRBC x10^3 (test code <0.01 See_Comment [Auto mated = 2529394897) message] The s ystem which generated this result transmitted reference range : 10*3/?L. The reference range was not used to interpret this result as normal/abnormal . GRAN MAT (NEUT) % 73.1 % (test code = 770-8) IMM GRAN % (test code 0.40 % = 3919335994) LYMPH % (test code = 20.3 % 736-9) MONO % (test code = 3.7 % 5905-5) EOS % (test code = 2.1 % 713-8) BASO % (test code = 0.4 % 706-2) GRAN MAT x10^3(ANC) 8.18 10*3/uL 1.88-7.09 H (test code = 1758886047) IMM GRAN x10^3 (test 0.05 10*3/uL 0-0.06 code = 8402776854) LYMPH x10^3 (test code 2.28 10*3/uL 1.32-3.29 = 731-0) MONO x10^3 (test code 0.42 10*3/uL 0.33-0.92 = 742-7) EOS x10^3 (test code = 0.23 10*3/uL 0.03-0.39 711-2) BASO x10^3 (test code 0.05 10*3/uL 0.01-0.07 = 704-7) Lab Interpretation Abnormal (test code = 72784-0) [facility]BI[facility] WITH NON-STRESS TEST 2020-04-18 19:57:52NST: 130, moderate variability, +accels, no decelsBPP 10/10Toco: quiescentUnThe [facility]POCT [facility]INAL[facility] W/O SPECIFIC [id number] 01:12:00 Test Item Value Reference Range Interpretation [...] code = 3257) na Negative - Negative [facility] RegionalFETAL NON-STRESS [id number] 01:04:39 Reactive and reassuringToco quiescent Ladonna Leyva MD ?04/16/2020 ?7:04 PM General acute hospital NON-STRESS [id number] 01:37:59 Reactive and reassuringToco quiescent Ladonna Leyva MD ?04/12/2020 ?7:37 PM General acute hospital NON-STRESS [id number] 22:01:18 Reactive and reassuring [facility] [id number] 22:09:20NST reactive and reassuringUnVA [facility] NON-STRESS [id number] 22:09:20NST reactive and reassuring General acute hospital NON-STRESS [id number] 22:07:24 Reactive and reassuringToco quiescent Ladonna Leyva MD ?03/21/2020 ?4:07 PM [facility]CONS[facility] TO CONTA[facility] FOR VOLUNTARY RESEARCH 2019-12-06 16:09:25 Test Item Value Reference Range Interpretation Comments Consent To Contact For Voluntary Yes Research (test code = 4947) [facility]URINAL[facility]IS2020-08-03 23:39:00 Test Item Value Reference Range Interpretation Comments APPEARANCE (test code = Hazy Clear A 1297330645) COLOR (test code = Yellow Yellow 0270418362) PH (test code = 4.8-8.0 7751144060) SP GRAVITY (test code = 1.003-1.030 9590067426) GLU U QUAL (test code = Normal Normal 0864028615) BLOOD (test code = Negative Negative 5681610819) KETONES (test code = 5 mg/dL Negative A 7608212717) PROTEIN (test code = Negative Negative 2887-8) UROBILIN (test code = Normal Normal 7702370135) BILIRUBIN (test code = Negative Negative 1031358709) NITRITE (test code = Negative Negative 5157948619) LEUK VAHID (test code = Negative Negative 2986422985) RBC/HPF (test code = See_Comment [Autom ated message] 7950283266) The system [employer] generated this result transmitted ref erence range: 0 - 3 HP F. The reference range was not used to int erpret this result as normal/abnormal . WBC/HPF (test code = See_Comment [Autom ated message] 2256157034) The system [employer] generated this result transmitted ref erence range: 0 - 5 HP F. The reference range was not used to int erpret this result as normal/abnormal . BACTERIA (test code = Moderate Negative A 2108081328) MUCOUS (test code = Slight Negative LPF A 6183923935) SQ EPITH (test code = HPF 9254190893) Lab Interpretation (test Abnormal code = 81706-3) [facility]. METABOLIC PANEL (60374)2019-11-28 22:30:00 Test Item Value Reference Range Interpretation Comments NA (test code = 133 mmol/L 135-145 L 7360655838) K (test code = 3.8 mmol/L 3.5-5 3327808104) CL (test code = 107 mmol/L 98-108 1866990221) CO2 TOTAL (test code = 23 mmol/L 23-31 7092739808) AGAP (test code = 2-16 0381654049) BUN (test code = 2 mg/dL 7-23 L 6511729737) GLUCOSE (test code = 81 mg/dL 70-110 2970534326) CREATININE (test code = 0.34 mg/dL 0.5-1.04 L 4397936524) TOTAL BILI (test code = 0.6 mg/dL 0.1-1.7 6443863837) CALCIUM (test code = 9.0 mg/dL 8.6-10.6 4650645591) T PROTEIN (test code = 6.2 g/dL 6.3-8.2 L 4532126988) ALBUMIN (test code = 3.2 g/dL 3.5-5 L 7021320663) ALK PHOS (test code = 82 U/L 34-122 9318232621) ALTv (test code = 12 U/L 5-35 1742-6) AST(SGOT) (test code = 17 U/L 13-40 3859600323) eGFR Calculation mL/min/1.73m2 (Non-) (test code = 6513811252) eGFR Calculation mL/min/1.73m2 () (test code = 3955943955) TRISTON (test code = TRISTON) Association of [...] tests). Lab Interpretation Abnormal (test code = 41716-6) [facility] WITH [id number] 21:54:00 Test Item Value Reference Range Interpretation Comments WBC (test code = See_Comment H [Automated 4974-2) message] The sy stem which generated this result transmitted reference range : 4.30 - 11.10 10*3/?L. The reference range was not used to interpret this result as normal/abnormal . RBC (test code = See_Comment [Automated 043-8) message] The sy stem which generated this [...] RDW-SD (test code = 39.8 fL 39-49.9 95902-8) RDW-CV (test code = 12.0 % 12-15.5 788-0) PLT (test code = See_Comment [Automated 777-3) message] The sy stem which generated this result transmitted reference range : 166 - 358 10*3/ ?L. The reference r dejuan was not used to interpret this result as normal/abnormal . MPV (test code = 11.1 fL 9.5-12.9 99586-4) NRBC/100 WBC (test See_Comment [Automat ed code = 3724323498) message] The system which generated this result transmitted reference range : 0.0 - 10.0 /100 WBCs. The refer ence range was not u sed to interpret th is result as normal/abnormal . NRBC x10^3 (test code <0.01 See_Comment [Auto mated = 7490222859) message] The s ystem which generated this result transmitted reference range : 10*3/?L. The reference range was not used to interpret this result as normal/abnormal . GRAN MAT (NEUT) % 78.1 % (test code = 770-8) IMM GRAN % (test code 0.60 % = 4015413364) LYMPH % (test code = 14.5 % 736-9) MONO % (test code = 4.8 % 5905-5) EOS % (test code = 1.7 % 713-8) BASO % (test code = 0.3 % 706-2) GRAN MAT x10^3(ANC) 8.84 10*3/uL 1.88-7.09 H (test code = 1173172116) IMM GRAN x10^3 (test 0.07 10*3/uL 0-0.06 H code = 3546249706) LYMPH x10^3 (test code 1.64 10*3/uL 1.32-3.29 = 731-0) MONO x10^3 (test code 0.54 10*3/uL 0.33-0.92 = 742-7) EOS x10^3 (test code = 0.19 10*3/uL 0.03-0.39 711-2) BASO x10^3 (test code 0.03 10*3/uL 0.01-0.07 = 704-7) Lab Interpretation Abnormal (test code = 80810-3) [facility] URINALYSIS W/O SPECIFIC [id number] 14:11:00 Test Item Value Reference Range Interpretation [...] code = 3257) Neg Negative - Negative [facility] URINALYSIS W/O SPECIFIC [id number] 14:11:00 Test Item Value Reference Range Interpretation [...] code = 3257) Neg Negative - Negative [facility] [id number] 14:10:00 Test Item Value Reference Range Interpretation Comments POCT PREG (test code = 1605) Positive On board controls acceptable with C Yes Line (test code = 3574) POCT PREG LOT # (test code = 3575) POCT PREG TEST DATE (test code = 3576) [facility] [id number] 14:10:00 Test Item Value Reference Range Interpretation Comments POCT PREG (test code = 1605) Positive On board controls acceptable with C Yes Line (test code = 3574) POCT PREG LOT # (test code = 3575) POCT PREG TEST DATE (test code = 3576) [facility]HIV[facility] ANTIGEN WITH HIV-1/2 [id number] 16:26:00 Test Item Value Reference Range Interpretation Comments HIV-1 ANTIGEN WITH HIV 1\\T\\2 Nonreactive Nonreactive ANTIBODY (2) (BEAKER) (test code = 2586) BASIC METABOLIC [id number] 06:30:00 Test Item Value Reference Range Interpretation [...] m DATA TO CALCULA TE ESTIMATED GFR. [id number] 06:19:00 Test Item Value Reference Range Interpretation Comments PHOSPHORUS (BEAKER) (test code = 1.9 mg/dL 2.3-4.7 L 604) [id number] 06:19:00 Test Item Value Reference Range Interpretation Comments MAGNESIUM (BEAKER) (test code = 1.8 mg/dL 1.6-2.6 627) HEPATIC FUNCTION [id number] 06:19:00 Test Item Value Reference Range Interpretation [...] 6-55 347) CBC W/PLT COUNT & AUTO [id number] 06:11:00 Test Item Value Reference Range Interpretation [...] (BEAKER) (test code = 2801) BASIC METABOLIC [id number] 10:11:00 Test Item Value Reference Range Interpretation [...] m DATA TO CALCULA TE ESTIMATED GFR. [id number] 09:56:00 Test Item Value Reference Range Interpretation Comments PHOSPHORUS (BEAKER) (test code = 1.6 mg/dL 2.3-4.7 L 604) [id number] 09:56:00 Test Item Value Reference Range Interpretation Comments MAGNESIUM (BEAKER) (test code = 2.0 mg/dL 1.6-2.6 627) HEPATIC FUNCTION [id number] 09:56:00 Test Item Value Reference Range Interpretation [...] 6-55 347) CBC W/PLT COUNT & AUTO [id number] 09:53:00 Test Item Value Reference Range Interpretation [...]
[2021-10-20] MEDS ORDERED: MORPHINE 4 MG/ML SYR ONE ×2 (09:48→10:37)
[2021-10-20] MEDS ORDERED: ONDANSETRON 4 MG/2 ML VIAL ONE ×4 (09:48→14:59)
[2021-10-20 10:51] LABS: Absolute Lymphocytes (CBC) 1.3 K/uL (0.7-4.9); Hematocrit 27.5 % (36.0-45.0); Lymphocytes % 14.1 % (15.3-44.8); MPV 8.8 fL (7.6-11.3); RBC Red Blood Cell Count 2.98 M/uL (3.86-4.86)
[2021-10-20 11:15] LABS: Potassium 3.6 mmol/L (3.5-5.1)
[2021-10-20] MEDS ORDERED: HYDROMORPHONE HCL 1 MG/ML INJ ONE (11:37)
[2021-10-20] MEDS ORDERED: NA CHLORIDE 0.9% 50 ML ONE (11:38)
--- NOTE | 2021-10-20 12:02 | ER ---
Nurse's Notes [facility] Name: Elle Man Age: 31 yrs Sex: Female : 1990 Arrival Date: 10/20/2021 Time: 09:24 Bed 18 Private MD: Diagnosis: Abnormal uterine and vaginal bleeding, unspecified-Retained products of conception Presentation: 10/20 09:47 Chief complaint: Patient states: miscarriage x 2 weeks ago; heavy bleeding with clots x vg1 2 days with lower ABD pain; denies NV. Ebola Screen: Patient denies exposure to infectious person. Patient denies travel to an Ebola-affected area in the 21 days before illness onset. Initial Sepsis Screen: Does the patient meet any 2 criteria? No. Patient's initial sepsis screen is negative. Does the patient have a suspected source of infection? No. Patient's initial sepsis screen is negative. Risk Assessment: Do you want to hurt yourself or someone else? Patient reports no desire to harm self or others. Onset of symptoms was October 19, 2021. 09:47 Method Of Arrival: Wheelchair vg1 09:47 Acuity: LAYTON 3 vg1 09:52 Coronavirus screen: Vaccine status: Patient reports being unvaccinated. Client denies vg1 travel out of the [place] in the last 14 days. Triage Assessment: 09:49 General: Appears uncomfortable, Behavior is crying. Pain: Complains of pain in vg1 suprapubic area, right lower quadrant and left lower quadrant Pain currently is 10 out of 10 on a pain scale. Pain began 2-3 days ago. EENT: No signs and/or symptoms were reported regarding the EENT system. Neuro: Level of Consciousness is awake, alert, obeys commands, Oriented to person, place, time, situation. Cardiovascular: Patient's skin is warm and dry. Respiratory: Airway is patent Respiratory effort is even, unlabored. GI: Reports lower abdominal pain, Patient currently denies nausea, vomiting. : Reports vaginal bleeding that is with clots, heavy flow 'dark red' in color. Derm: Skin is intact, is healthy with good turgor. Musculoskeletal: Circulation, motion, and sensation intact. 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 - Social history:: Patient/guardian denies using alcohol, street drugs, The patient lives with family, Smoking status: Patient denies any tobacco usage or history of. - Family history:: not pertinent. Screenin:51 Abuse screen: Denies threats or abuse. Nutritional screening: No deficits noted. vg1 Tuberculosis screening: No symptoms or risk factors identified. Fall Risk No fall in past 12 months (0 pts). No secondary diagnosis (0 pts). IV access (20 points). Ambulatory Aid- None/Bed Rest/Nurse Assist (0 pts). Gait- Normal/Bed Rest/Wheelchair (0 pts) Mental Status- Oriented to own ability (0 pts). Total Archuleta Fall Scale indicates No Risk (0-24 pts). Assessment: 09:51 Reassessment: SEE TRIAGE. vg1 10:00 General: Appears in no apparent distress. uncomfortable, Behavior is cooperative, jl7 agitated, crying. Pain: Complains of pain in right lower quadrant and left lower quadrant Pain currently is 10 out of 10 on a pain scale. Quality of pain is described as crampy, Pain began 1 day ago. Is continuous. Neuro: Bauman Agitation-Sedation Scale (RASS): +3 Very Agitated Level of Consciousness is awake, alert, obeys commands, Oriented to person, place, time, situation. Cardiovascular: Patient's skin is warm and dry. Respiratory: Airway is patent Respiratory effort is even, unlabored, Respiratory pattern is regular, symmetrical. GI: Reports lower abdominal pain, cramping. : Reports vaginal bleeding that is heavy flow. Derm: Skin is pink, warm \\T\\ dry. 10:35 Reassessment: Pt states "I'm 5'11 and 230 pounds, one shot is not going to work for jl7 me." Reports continued severe abdominal cramping, Dr. Almazan notified, VO for 4 mg Morphine, IVP, pt medicated as ordered. 11:38 Reassessment: Pt c/o continued severe abdominal pain, ERD notified, see MAR for oders. jl7 Vital Signs: 09:47 BP 131 / 103; Pulse 90; Resp 16; Temp 99.0(TE); Pulse Ox 99% on R/A; Weight 99.79 kg; vg1 Height 5 ft. 11 in. (180.34 cm); Pain 10/10; 10:35 BP 106 / 71; Pulse 89; Resp 22; Pulse Ox 95% ; jl7 09:47 Body Mass Index 30.68 (99.79 kg, 180.34 cm) vg1 ED Course: 09:24 Patient arrived in ED. as 09:36 Trip Alvarez NP is PHCP. pm1 09:36 Yasmeen Almazan MD is Attending Physician. pm1 09:49 Triage completed. vg1 09:49 Arm band placed on. vg1 09:51 Patient has correct armband on for positive identification. Bed in low position. Call vg1 light in reach. Side rails up X 1. Adult w/ patient. 09:55 Missed attempt(s): 20 gauge in left antecubital area. Bleeding controlled, band aid jl7 applied, catheter tip intact. 10:00 Missed attempt(s): 22 gauge in right wrist. Bleeding controlled, band aid applied, jl7 catheter tip intact. 10:05 Jeff Fowler RN is Primary Nurse. jl7 10:10 Initial lab(s) drawn, by ED staff, sent to lab. Inserted saline lock: 18 gauge in left jl7 antecubital area, using aseptic technique. Blood collected. Inserted via US by ISIDRO Hurd. 12:02 Liv Prieto MD is Hospitalizing Provider. ma2 Administered Medications: 10:19 Drug: morphine 4 mg Route: IVP; Infused Over: 4 mins; Site: left antecubital; jl7 10:35 Follow up: Response: No adverse reaction; No change in condition; RASS: Very agitated jl7 (+3) 10:19 Drug: Zofran (Ondansetron) 4 mg Route: IVP; Site: left antecubital; jl7 10:37 Follow up: Response: No adverse reaction jl7 10:37 Drug: morphine 4 mg Route: IVP; Infused Over: 4 mins; Site: left antecubital; jl7 11:00 Follow up: Response: No adverse reaction; Pain is unchanged, physician notified; RASS: jl7 Agitated (+2) 11:38 Drug: Dilaudid (HYDROmorphone) 1 mg Route: IVP; Site: left antecubital; jl7 12:30 Drug: Zofran (Ondansetron) 4 mg Route: IVP; Site: left antecubital; jl7 Medication: 10:28 VIS not applicable for this client. jl7 Outcome: 12:02 Decision to Hospitalize by Provider. ma2 13:09 Patient left the ED. aa5 Signatures: Aziza Pierre Audri RN RN aa5 Trip Alvarez, COFOUNDER COFOUNDER pm1 Jeff Fowler RN RN jl7 Yasmeen Almazan MD MD ma2 Indira Medina RN RN vg1 Corrections: (The following items were deleted from the chart) 09:53 09:47 Chief complaint: Patient states: heavy bleeding with clots x 2 days with lower vg1 ABD pain; denies NV vg1 10:23 10:19 morphine 4 mg IVP in right antecubital over 4 mins jl7 jl7 10:23 10:19 Zofran (Ondansetron) 4 mg IVP in right antecubital jl7 jl7
--- NOTE | 2021-10-20 12:03 | EDPHYS ---
Physician Documentation [facility] Name: Elle Man Age: 31 yrs Sex: Female : 1990 Arrival Date: 10/20/2021 Time: 09:24 Bed 18 Private MD: ED Physician Yasmeen Almazan HPI: 10/20 09:47 This 31 yrs old Female presents to ER via Unassigned with complaints of ma2 Vaginal Bleeding, Pelvic Pain. 09:47 Associated signs and symptoms: Pertinent negatives: diarrhea, fever, hematuria, urinary ma2 frequency. Severity of symptoms: At their worst the symptoms were moderate, in the emergency department the symptoms are unchanged. The patient has experienced similar episodes in the past. This is a patient whom I saw yesterday, she presented yesterday with vaginal bleeding and abdominal pain status post miscarriage, please refer to yesterday note for more details. Patient was evaluated by Dr. Prieto blocking machine operator and advised for patient to follow-up. Patient presents today with abdominal pain vaginal bleeding but has not changed from yesterday no new symptom compared to yesterday. However she stated that he would like IV pain medication, she received morphine yesterday. Abdominal pain has not worsened.. 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 - Social history:: Patient/guardian denies using alcohol, street drugs, The patient lives with family, Smoking status: Patient denies any tobacco usage or history of. - Family history:: not pertinent. ROS: 09:47 Negative for ma2 09:47 Constitutional: Negative for fever, chills, and weight loss. 09:47 All other systems are negative. Exam: 09:47 Constitutional: This is a well developed, well nourished patient who is awake, alert, ma2 and in no acute distress. Chest/axilla: Normal chest wall appearance and motion. Nontender with no deformity. No lesions are appreciated. Cardiovascular: Regular rate and rhythm with a normal S1 and S2. No gallops, murmurs, or rubs. Normal PMI, no JVD. No pulse deficits. Respiratory: Lungs have equal breath sounds bilaterally, clear to auscultation and percussion. No rales, rhonchi or wheezes noted. No increased work of breathing, no retractions or nasal flaring. Abdomen/GI: Soft, non-tender, with normal bowel sounds. No distension or tympany. No guarding or rebound. No evidence of tenderness throughout. Back: No spinal tenderness. No costovertebral tenderness. Full range of motion. Skin: Warm, dry with normal turgor. Normal color with no rashes, no lesions, and no evidence of cellulitis. MS/ Extremity: Pulses equal, no cyanosis. Neurovascular intact. Full, normal range of motion. Neuro: Awake and alert, GCS 15, oriented to person, place, time, and situation. Cranial nerves II-XII grossly intact. Motor strength 5/5 in all extremities. Sensory grossly intact. Cerebellar exam normal. Normal gait. Vital Signs: 09:47 BP 131 / 103; Pulse 90; Resp 16; Temp 99.0(TE); Pulse Ox 99% on R/A; Weight 99.79 kg; vg1 Height 5 ft. 11 in. (180.34 cm); Pain 10/10; 10:35 BP 106 / 71; Pulse 89; Resp 22; Pulse Ox 95% ; jl7 09:47 Body Mass Index 30.68 (99.79 kg, 180.34 cm) vg1 MDM: 09:43 Patient medically screened. ma2 11:58 Differential diagnosis: Differential diagnosis includes miscarriage, retained products ma2 of conception, versus vaginal bleeding, hemoglobin has dropped from yesterday from 12 to 9.6, beta-hCG dropped from 1.2 K to 1000. I consulted Dr. Prieto blocking machine operator at 11:59 AM he will come down and see the patient. He came down and inform me that he will do d and c. Data reviewed: vital signs, nurses notes. Counseling: I had a detailed discussion with the patient and/or guardian regarding: the historical points, exam findings, and any diagnostic results supporting the discharge/admit diagnosis, the presence of at least one elevated blood pressure reading (>120/80) during this emergency department visit, the need for outpatient follow up. Response to treatment: There is no appreciated change of the patient's symptoms at this time. 06/26 09:27 Order name: Abo/rh Typing [facility] 10/20 09:27 Order name: Basic Metabolic Panel; Complete Time: 11:30 [facility] 10/20 09:27 Order name: CBC with Diff; Complete Time: nj2 10/20 09:27 Order name: Quantitative Hcg; Complete Time: 11:30 [facility] 10/20 09:27 Order name: IV Saline Lock; Complete Time: 10: [facility] 10/20 09:27 Order name: Labs collected and sent; Complete Time: 10: [facility] 10/20 09:27 Order name: Urine Dipstick-Ancillary (obtain specimen); Complete Time: : nj Administered Medications: 10:19 Drug: morphine 4 mg Route: IVP; Infused Over: 4 mins; Site: left antecubital; 7 10:35 Follow up: Response: No adverse reaction; No change in condition; RASS: Very agitated jl (+3) 10:19 Drug: Zofran (Ondansetron) 4 mg Route: IVP; Site: left antecubital; 7 10:37 Follow up: Response: No adverse reaction jl7 10:37 Drug: morphine 4 mg Route: IVP; Infused Over: 4 mins; Site: left antecubital; jl7 11:00 Follow up: Response: No adverse reaction; Pain is unchanged, physician notified; RASS: jl7 Agitated (+2) 11:38 Drug: Dilaudid (HYDROmorphone) 1 mg Route: IVP; Site: left antecubital; jl7 12:30 Drug: Zofran (Ondansetron) 4 mg Route: IVP; Site: left antecubital; jl7 Disposition Summary: 10/20/21 12:02 Hospitalization Ordered Hospitalization Status: Inpatient Admission ma2 Provider: Liv Prieto Location: Operating Room ma2 Condition: Stable [facility] Problem: new ma2 Symptoms: are unchanged [facility] Bed/Room Type: Standard [facility] Room Assignment: [facility] Diagnosis - Abnormal uterine and vaginal bleeding, unspecified - Retained products of conceptionma2 Forms: - Medication Reconciliation Form ma2 - SBAR form nj2 Signatures: Dispatcher [employer] Jeff Enriquez RN RN jl7 Yasmeen Almazan MD MD ma2 Adam, Indira, RN RN vg1
[2021-10-20] MEDS ORDERED: propofoL 200 MG/20 ML VIAL IV ONE (12:46)
[2021-10-20] MEDS ORDERED: LIDOCAINE 1% MPF 5 ML VIAL ONE (12:47)
[2021-10-20] MEDS ORDERED: METHYLPREDNISOLONE 125 MG INJ ONE (13:10)
[2021-10-20] MEDS ORDERED: KETOROLAC 30 MG/ML INJ ONE ×2 (13:10→13:24)
[2021-10-20] MEDS: Ringers Lactate 1,000 ML IV ONE (13:20)
[2021-10-20] MEDS ORDERED: FENTANYL CITR 100 MCG/2 ML ONE (13:23)
[2021-10-20] MEDS ORDERED: dexAMETHasone 10 MG/ML VIAL ONE (13:25)
[2021-10-20] MEDS ORDERED: CEFAZOLIN SODIUM 1 GM/VIAL ONE (13:28)
[2021-10-20] MEDS ORDERED: OXYTOCIN 10 UNIT/ML ML ONE (14:04)
[2021-10-20 15:05] VITALS: BP 110/66; TEMP 96.4; O2SAT 98
[2021-10-20] MEDS ORDERED: HYDROCODONE/APAP 5/325 MG TAB PO ONE (15:13)
[2021-10-20] MEDS ORDERED: HYDROCODONE/APAP 5/325 MG TAB ONE (15:20)
--- NOTE | 2021-10-21 01:19 | OP ---
Date of Procedure: 10/20/2021 Surgeon: Ramses Prieto Preoperative Diagnoses: 1.Spontaneous miscarriage, incomplete first trimester. 2.Vaginal bleeding. 3.Blood loss anemia. Postoperative Diagnoses: 1.Spontaneous miscarriage, incomplete first trimester. 2.Vaginal bleeding. 3.Blood loss anemia. Procedure Performed: Suction dilation and curettage. Anesthesia: General endotracheal anesthesia. Estimated Blood Loss: 500 cc including tissue. Finding: Retroflexed uterus about 8- to 10-week in sizing estimate. No further dilatation needed. The cervical os easily accommodated a #8 curved curette. Tissues and blood clots were able to be obt ained; however, confirmation of tissue was chorionic villi cannot be done at the operating room . Pathology is pending. Procedure In Detail: Elle Man is a G4, P2, living 4, white female, was evaluated by me chevy mccormack at the emergency room with vaginal bleeding. She was sent home with precaution because her H and H hemodynamically were stable. She returned with additional pain plus more vaginal bleeding with decr eased H and H to 01/21. She was symptomatic. Therefore, she was consented for D and C. she was brou ght into the operating room and underwent a general endotracheal anesthesia. Her legs were placed in lithotomy position. Vaginal area was prepped and washed by using Betadine prep and her bladder was drained by using sterile technique. Then, she was draped in sterile fashion. Examination then revea led a retroflexed uterus about 8-10 weeks in size and a vaginal speculum was placed inside the vagina to expose the cervix. A ring forceps was used to grasp the anterior cervical lip and dilatation no further needed, and a #8 size curette, curved curette was easily accommodated within the cervix/uteru s and the suction pressure was brought to the appropriate level to approximately 50-60 mmHg pressure. With the curetting started into the uterus with both gentle circular motion and linear scraping mot ion, the tissue was able to be obtained and good uterine crying sound noted throughout the uterus. N ow, the procedure was complete. No aggressive D and C was done. Prophylactic Ancef 1 g was given, a lso Pitocin 10 units in her left deltoid was also given. There were no complications. The patient t olerated the procedure well. BW/MODL Voice ID: [id number] Report ID: [id number]
--- NOTE | 2021-10-21 08:46 | DS ---
Date of Discharge: 10/20/2021 Final Discharge Diagnoses: 1.Miscarriage, first trimester, incomplete. 2.Vaginal bleeding. 3.Blood loss anemia. Disposition: Home. Condition: Stable. Prescription: No prescription written at this time; however, yesterday, 10/19/2021 during the discha rge from the emergency room, the patient has received the anti-inflammatory and narcotics for pain co ntrol. The patient was advised to use previously given prescription. In addition, I have instructed her to purchase [id number] iron as directed per bottle plus anemia precaution in addition disc ussing iron rich food intake. Followup: Followup 2 weeks with an INDUSTRIAL LOCOMOTIVE OPERATOR or a local physician, Dr. Glez. Hospital Course: Elle Man is a 31-year-old white female, G4, P2, living 3, prior history of C-s ection with twins and also followed by a term repeat . She has 3 living kids and she was re cently . She was here in the emergency room 3 weeks ago with beta HCG; however, no intrauter ine was seen. Weeks later, she declined HCG with the most recent visit to about 1400 and s he returned the following day, which is today to about near 1100. She is Rh positive. She persisten tly to have vaginal bleeding with a decrease of hemoglobin dropping from 12 to the level of 9. She c onsented for a dilatation and curettage procedure. I met her at the emergency room, examined her and taken her to the operating room for the procedure. She tolerated the procedure well with about 500 cc of blood loss. Some tissues, blood clots were obtained; however, chorionic villi was not be able to confirmed at the time of the OR, therefore pathology has been pending. The patient was given inst ructions the importance of followup and also the importance of follow the normal to be nega tive. There is always a potential for additional surgery and followup. The patient understood and I discussed with her of her condition including her family member. She was discharged to home in good and stable condition. BW/MODL Voice ID: [id number] Report ID: [id number]
== END 2021-10-20 15:34 | disposition home or self-care (01) ==
LOC: ER 09:22 → DS 15:33
PROVIDERS: ATTEND Obstetrics & Gynecology
PROC: 10D17ZZ Extraction of Products of Conception, Retained, Via Natural or Artificial Opening (ICD-10-PCS; principal; 2021-10-20 13:30)
DX: O03.4 Incomplete spontaneous abortion without complication (principal); D50.0 Iron deficiency anemia secondary to blood loss (chronic); N93.9 Abnormal uterine and vaginal bleeding, unspecified
CPT/HCPCS: 85025; 80048; 36415; 86900; 86901; 88305; 84702; 96375; 96374; 99283; 59812; J2704; J3010; J1100; J1170; J7120; J2930; J2405 ×4; J0690

== ENCOUNTER 2022-05-16 07:48 | Emergency (ER) | payer OTHER ==
--- OUTSIDE RECORDS SUMMARY | 2022-05-16 07:56 | XMS REPORT | Continuity of Care Document ---
:[address] [facility] t Address [address] [place] [address] [address] [place] [address] Care Team Providers Name Role Phone PCP, PATIENT DOES NOT HAVE A Primary Care Physician Unavaila ble Only, Ang Db Test Attending Clinician Unavailable Elder Brandon Attending Clinician ELDER KELLY Attending Clinician Unavailable Belén Crespo MD Attending Clinician BELÉN CRESPO Attending Clinician Unavailable LORE DENNEY Attending Clinician Unavailable Roshan West DO Attending Clinician Michael Agarwal MD Attending Clinician Jonny Zamudio DO Attending Clinician Matthias Jewell Attending Clinician Doctor Unassigned, [place] Attending Clinician Unavailable RUY PATRICK Attending Clinician Unavailable Ruy Patrick PA-C Attending Clinician Marissa Lizama Attending Clinician LADONNA LEYVA Attending Clinician Unavailable JOSHUA FLORES Attending Clinician Unavailable Ekta Morse DO Attending Clinician Nurse, [facility] Attending Clinician Unavailable Ladonna Leyva MD Attending Clinician NORAH ZAMUDIO Attending Clinician Unavailable NORAH ZAMUDIO Attending Clinician Unavailable Rishi Singh MD Attending Clinician Sona Lawrence Attending Clinician [phone] Room, [facility] Nst Attending Clinician Unavailable Ultrasound, [facility] Mf Attending Clinician Unavailable Amada Hernandez MD Attending Clinician AMADA HERNANDEZ Attending Clinician Unavailable AMADA HERNANDEZ Attending Clinician Unavailable Ultrasound, [facility] Attending Clinician Unavailable Norah Zamudio MD Attending Clinician Ben Swanson MD, Nunez Attending Clinician 5, [facility] Usg Room Attending Clinician Unavailable 2, [facility] Lab Attending Clinician Unavailable 3, [facility] U[facility] Room Attending Clinician Unavailable Allen Martinez MD Attending Clinician 1, [facility] Usg Room Attending Clinician Unavailable Gurmeet Hall MD Attending Clinician 2, [facility] Genetic Consults Attending Clinician Unavailable Matthew Alcantar MD Attending Clinician Mae [facility] Attending Clinician [phone] Pob1, Acute Care Clinic Attending Clinician Unavailable Lab, [facility] Fam Pob I Attending Clinician Unavailable KELSEY WALL Attending Clinician Unavailable BLAYNE MARTINES Attending Clinician Unavailable Michael Agarwal MD Admitting Clinician NORAH ZAMUDIO Admitting Clinician Unavailable BLAYNE MARTINES Admitting Clinician Unavailable Payers Payer Name Policy Type Policy Number Effective Date Expiration Date [facility] [id number] 2019 [facility] MEDICAID 00:00:00 [facility] [id number] 2000 2021 PPO 00:00:00 00:00:00 Problems Condition Condition Condition Status Onset Resolution Last Treating Co mments Source Name Details Category Date Date Treatment Clinician Date Abdominal Abdominal Disease Active Uni vers pain pain 3-24 ity of 00:00: [place] 00 Medical Branch Symptomati Symptomati Disease Active U nivers c c 3-24 ity of cholelithi cholelithi [place] asis 00 Medical Branch 37 weeks 37 weeks Disease Active 2019-04 Unive rs gestation gestation 2-30 ity of of of 00:00: [place] 00 Medi [facility] Branch Polyhydram Polyhydram Disease Active 2019-04 U felicia nios, nios, 2-17 ity of antepartum antepartum [place] , single , single 00 Medica l or or Branch unspecifie unspecifie d fetus d fetus Excessive Excessive Disease Active 2019-04 Uni vers 1-25 ity of growth growth 00:00: [place] affecting affecting 00 Medi dee , , [...] Branch 40.0-49.9 40.0-49.9 Obesity Obesity Disease Active Univers (BMI (BMI 8-11 ity of 30-39.9) 30-39.9) 00:00: [place] 00 Medical Branch Nausea and Nausea and Disease Active 2020- U felicia vomiting vomiting 8-11 ity of during during 00:00: [place] 00 Medi dee prior to prior to Branch 22 weeks 22 weeks gestation gestation Nasal Nasal Disease Active 2020- Univers congestion congestion 8-11 it y of with with 00:00: [place] rhinorrhea rhinorrhea 00 Me dical Branch Nasal Nasal Disease Active 2020- Univers congestion congestion 8-11 it y of with with 00:00: [place] rhinorrhea rhinorrhea 00 Me dical Branch UTI in UTI in Disease Active Overview: Univer s 7-13 Formattin i ty of 00:00: g of this [place] note Medical might be Branch different from the original. pending FREDERICK Supervisio Supervisio Disease Active 2020-0 U nivers n of n of 11-02 ity of high-risk high-risk 00:[place] [facility] Branch Obesity in Obesity in Disease Active 2020-0 U nivers 11-02 ity of 00:: [place] [address] Medical Branch Multiparit Multiparit Disease Active 2020-0 U nivers y y 11-02 ity of 00:00: [place] [address] Medical Branch History of History of Disease [...] 11-02 it y of e e 00:00: [place] [address] Medical Branch History of History of Disease Active 2019-0 Overview : Univers 11-02 Formattin ity of section section 00:00: g of this [place] note Medical might be Branch different from the original. Desires repeat Cellulitis Cellulitis Disease Active [facility] Hypokalemi Hypokalemi Disease Active 2016-[address] [facility] Headache Headache Disease [facility] 2016[facility] Medical 00 [place] Elevated Elevated Disease Active 2016-04 [facility] L[facility] Aseptic Aseptic Disease Active 2016-[address] meningitis meningitis 0-08 [facility] 00:00: Medical 00 Center Encephalit Encephalit Diagnosis Active Common is [facility] Allergies, Adverse Reactions, Alerts Allergy Allergy Status Severity Reaction(s) Onset Inactive Treating Comm ents Source Name Type Date Date Clinician NO KNOWN Drug Active Univers ALLERGIE Class ity of S [facility] Social History Social Habit Start Date Stop Date Quantity Comments Source ASSERTION 2019-08-19 [facility] 00:00:00 Medical Branch Exposure to Yes [facility] SARS-CoV-2 (event) Medica l Branch Alcohol intake 2020-08-13 2020-08-13 0 /d University [facility] 00:00:00 00:00:00 Medical Branch Tobacco use and 2017-02-01 2017-02-01 Never used OLIVA Murray exposure 00:00:00 00:00:00 Medical Center Sex Ass[birth year] At [birth year] OLIVA Murray 00:00:00 00:00:00 [facility] Center Smoking Status Start Date Stop Date Source Never smoker [facility] [place] [facility] Medications Ordered Filled Start Stop Current Ordering Indication Dosage Frequency Signature Comments Components Source Medication Medication Date Date Medication? Clinician (SIG) Name Name pantoprazol Yes 40mg 40 mg, Univ ers e 3-25 Oral, ity of (PROTONIX) 14:00: DAILY, [place] EC tablet 00 First dose Medi dee 40 mg on [facility] 07/19/20 at 0900, Until Discontinu ed, Routine enoxaparin Yes 40mg 40 mg, Unive rs (LOVENOX) 3-25 Subcutaneo ity of injection 14:00: [place] 40 mg 00 First dose Medical on [facility] 07/19/20 at 0900, Until Discontinu ed, Routine zolpidem 5mg 5 mg, Univers (AMBIEN) 3-25 03-25 Oral, ONCE ity of tablet 5 mg 05:58: 05:59 NOW, 1 [place] 00 :00 dose, [facility] 07/19/20 at Branch 0100, Routine PARoxetine Yes [id number] 10mg Take 1 U nivers (PAXIL) 10 3-25 tablet by ity of mg tablet 00:00: mouth [place] 00 daily. Medical Branch HYDROcodone Yes [id number] 1{tbl} Take 1 Un inés -acetaminop 3-25 tablet by ity of hen 5-325 00:00: mouth [place] mg tablet 00 every 6 Medical (six) Branch hours as needed for Pain (scale 7-10). Indication s: acute pain PARoxetine Yes [id number] 10mg Take 1 U nivers (PAXIL) 10 3-25 tablet by ity of mg tablet 00:00: mouth [place] 00 daily. Medical Branch PARoxetine Yes [id number] 10mg Take 1 U nivers (PAXIL) 10 3-25 tablet by ity of mg tablet 00:00: mouth [place] 00 daily. Medical Branch HYDROcodone Yes [id number] 1{tbl} Take 1 Un inés -acetaminop 3-25 tablet by ity of hen 5-325 00:00: mouth [place] mg tablet 00 every 6 Medical (six) Branch hours as needed for Pain (scale 7-10). Indication s: acute pain PARoxetine Yes [id number] 10mg Take 1 U nivers (PAXIL) 10 3-25 tablet by ity of mg tablet 00:00: mouth [place] 00 daily. Medical Branch HYDROcodone Yes [id number] 1{tbl} Take 1 Un inés -acetaminop 3-25 tablet by ity of hen 5-325 00:00: mouth [place] mg tablet 00 every 6 Medical (six) Branch hours as needed for Pain (scale 7-10). Indication s: acute pain sennosides- 2020- No [id number] 1{tbl} Take 1 Univers docusate 3-25 04-25 tablet by ity o f sodium 00:00: 04:59 mouth [place] 8.6-50 mg 00 :00 daily for Medic al per tablet 30 days. [facility] sennosides- 2020- No [id number] 1{tbl} Take 1 Univers docusate 3-25 04-25 tablet by ity o f sodium 00:00: 04:59 mouth [place] 8.6-50 mg 00 :00 daily for Medic al per tablet 30 days. [facility] sennosides- 2020- No [id number] 1{tbl} Take 1 Univers docusate 3-25 04-25 tablet by ity o f sodium 00:00: 04:59 mouth [place] 8.6-50 mg 00 :00 daily for Medic al per tablet 30 days. [facility] HYDROcodone 2020- No [id number] 1{tbl} Take 1 U nivers -acetaminop 3-25 04-02 tablet by it y of hen 5-325 00:00: 04:59 mouth [place] mg tablet 00 :00 every 6 Medical (six) Branch hours as needed for Pain (scale 7-10) for up to 7 days. Indication s: acute pain celecoxib 2020-0 Yes 100mg 100 mg, Univ ers (CELEBREX) 3-24 Oral, BID ity of capsule 100 22:00: [place]ALS, [place] mg 00 First dose Medical on Wed Branch 07/18/20 at 1700, Until Discontinu ed, [...] Infusion, Branch CONTINUOUS , Starting 07/18/20 at 1545, Until Discontinu ed, Routine, PACU FENTanyl PF 2020-0 Yes 25ug 25 mcg, Uni vers (SUBLIMAZE 3-24 Slow IV ity of (PF)) 20:41: Push, [place] injection 47 Q5MIN PRN, Medi dee 25 mcg 4 doses, Branch Starting 07/18/20 at 1541, Until Discontinu ed, Routine, [...] IV Push, ity of (PF)) 20:32: Q6HPRN, [place] injection 4 51 Starting Medi dee mg Wed Branch 07/18/20 at 1532, Until Discontinu ed, Routine, Nausea and Vomiting (N/V) morpHINE 2020-0 Yes 2mg 2 mg, Slow Uni vers injection 2 3-24 IV Push, ity of mg 20:30: Q4HPRN, [place] 11 Starting Medical Wed Branch 07/18/20 at 1530, Until Discontinu ed, Routine, Pain (scale 7-10) HYDROcodone 2020-0 Yes 1{tbl} 1 tablet, Univers -acetaminop 24 Oral, ity of hen (NORCO) 20:29: Q6HPRN, [place] 10-325 mg 56 Starting Medica l tablet 1 Thu [place] tablet 07/18/20 at 1529, Until Discontinu ed, Routine, Pain (scale 4-6) sodium 2020-0 Yes PRN, Univers chloride 07-18 Starting ity of 0.9 % 20:08: Thu [place] irrigation 00 07/18/[address] [facility] ical solution 1508, [place] Until Discontinu ed, Intra-op bupivacaine 2020-0 Yes PRN, Univer s -epinephrin 07-18 Starting ity of e-pf 18:58: Thu [place] (SENSORCAIN 07/18/20 at [facility] dical E 1358, [place] W/EPINEPHRI Intra-op NE) 0.25 %-1:200,000 30 mL, lidocaine 1% (PF) (XYLOCAINE) 30 mL lactated 2020- No 1000mL at 42 Unive rs ringers IV 07-18 03-24 mL/hr, ity of infusion 18:15: 18:02 1,000 mL, [place] 1,000 mL 00 :00 IV Medical Infusion, [place] ONCE, 1 dose, [facility] 07/18/20 at 1315, Routine, DSU Pre-op lactated 2020-0 Yes 1000mL at 125 Unive rs ringers IV 3-24 mL/hr, ity of infusion 14:45: 1,000 mL, [place] 1,000 mL 00 IV Medical Infusion, [place] CONTINUOUS , Starting Thu07/18/20 at 0945, Until Discontinu ed, Routine dicyclomine Yes 10mg 10 mg, Univ ers (BENTYL) 324 Oral, QID, ity o f capsule 10 13:00: First dose [place] mg 00 on [facility] Medical 07/18/20 at [place] 0800, Until Discontinu ed, Routine ondansetron 2020- No 4mg 4 mg, Slow Univers (ZOFRAN 07-18 03-24 IV Push, ity of (PF)) 12:30: 11:31 ONCE, 1 [place] injection 4 00 :00 dose, Wed Med ical mg 07/18/20 at Branch 0730, Routine iohexol 2020- No [id number] 120mL 120 mL, Univers (OMNIPAQUE 07-1824 Intravenou it y of 350 12:00: 12:00 s, ONCE, 1 [place] BULK-150 00 :00 dose, Wed Medica l mL) 07/18/20 at Branch injection 0700, 120 mL Routine NaCl 0.9% 2020- No 1000mL at 999 Uni vers (NS) bolus 07-18 mL/hr, ity of infusion 11:30: 11:29 1,000 mL, [place] 1,000 mL 00 :00 IV Medical Infusion, [place] ONCE, 1 dose, [facility] 07/18/20 at 0630, STAT morpHINE 2020- No 4mg 4 mg, Slow Un inés injection 4 07-18 IV Push, ity of mg 11:23: 14:30 Q4HPRN, [place] 42 :24 Starting Medical [facility] 07/18/20 at 0623, Until [facility] 07/18/20 at 0930, Routine, Pain (scale 7-10) iohexol 2020- No [id number] 120mL 120 mL, Univers (OMNIPAQUE 07-10 Intravenou it y of 350 07:15: 07:15 s, ONCE, 1 [place] BULK-150 00 :00 dose, Tue Medica l mL) 07/10/20 at Branch injection 0215, 120 mL Routine ondansetron No 4mg 4 mg, Slow Univers (ZOFRAN 07-10 IV Push, ity of (PF)) 07:00: 06:17 ONCE, 1 [place] injection 4 00 :00 dose, Tue Med ical mg 07/10/20 at Branch 0200, TUSHAR morpHINE No 4mg 4 mg, Slow Un inés injection 4 07-10 IV Push, ity of mg 07:00: 06:17 ONCE, 1 [place] 00 :00 dose, Tue Medical 07/10/20 at Branch 0200, STAT NaCl 0.9% 2020- No 1000mL at 999 Uni vers (NS) bolus 3-16 03-16 mL/hr, ity of infusion 06:00: 08:32 1,000 mL, [place] 1,000 mL 00 :00 IV Medical Infusion, Branch ONCE, 1 dose, 07/10/20 at 0100, TUSHAR traMADoL 50 2020-0 Yes [id number] 50mg Take [...] 50mg Take 1 Uni vers mg tablet 16 03-25 tablet by ity of 00:00: 00:00 mouth [place] 00 :00 every 6 Medical (six) Branch hours as needed for Pain (scale 7-10). Indication s: acute pain cyclobenzap 2020- No 10mg 10 mg, Uni vers rine 06-0812 Oral, ity of (FLEXERIL) 06:00: 04:52 ONCE, 1 [place] tablet 10 00 :00 dose, Fri Medic al mg 06/08/20 at Branch 0000, Routine ketorolac 2020- No 30mg 30 mg, Unive rs (TORADOL) 06-0812 Intramuscu ity of injection 06:00: 04:52 lar, ONCE, [place] 30 mg 00 :00 1 dose, Medical Fri Branch 06/08/20 at 0000, TUSHAR
Fa culty member approving Restricted medication : MARISSA NAVA cyclobenzap 2020- Yes [id number] 10mg Take 1 Univers rine 10 mg 2-11 tablet by ity of tablet 00:00: mouth 3 [place] 00 (three) Medical times Branch daily as needed for Muscle Spasms. naproxen 2020- Yes [id number] 500mg Take 1 U nivers (NAPROSYN) 2-11 tablet by ity of 500 mg 00:00: mouth 2 [place] tablet 00 (two) Medical times Branch daily with meals. cyclobenzap 2020-0 Yes [id number] 10mg Take 1 Univers rine 10 mg 2-11 tablet by ity of tablet 00:00: mouth 3 [place] 00 (three) Medical times Branch daily as needed for Muscle Spasms. naproxen 2020-0 Yes [id number] 500mg Take 1 U nivers (NAPROSYN) 2-11 tablet by ity of 500 mg 00:00: mouth 2 [place] tablet 00 (two) Medical times Branch daily with meals. cyclobenzap 2020-0 Yes [id number] 10mg Take 1 Univers rine 10 mg 2-11 tablet by ity of tablet 00:00: mouth 3 [place] 00 (three) Medical times Branch daily as needed for Muscle Spasms. naproxen 2020-0 Yes [id number] 500mg Take 1 U nivers (NAPROSYN) 2-11 tablet by ity of 500 mg 00:00: mouth 2 [place] tablet 00 (two) Medical times Branch daily with meals. cyclobenzap 2020-0 Yes [id number] 10mg Take 1 Univers rine 10 mg 2-11 tablet by ity of tablet 00:00: mouth 3 [place] 00 (three) Medical times Branch daily as needed for Muscle Spasms. naproxen 2020-0 Yes [id number] 500mg Take 1 U nivers (NAPROSYN) 2-11 tablet by ity of 500 mg 00:00: mouth 2 [place] tablet 00 (two) Medical times Branch daily with meals. cyclobenzap 2020-0 Yes [id number] 10mg Take 1 Univers rine 10 mg 2-11 tablet by ity of tablet 00:00: mouth 3 [place] 00 (three) Medical times Branch daily as needed for Muscle Spasms. naproxen 2020-0 Yes [id number] 500mg Take 1 U nivers (NAPROSYN) 2-11 tablet by ity of 500 mg 00:00: mouth 2 [place] tablet 00 (two) Medical times Branch daily with meals. cyclobenzap 2020-0 2021- No [id number] 10mg Take 1 Univers rine 10 mg 2-11 03-25 tablet by ity of tablet 00:00: 00:00 mouth 3 [place] 00 :00 (three) Medical times Branch daily as needed for Muscle Spasms. naproxen 2020- No [id number] 500mg Take 1 Univers (NAPROSYN) 2-11 03-25 tablet by ity of 500 mg 00:00: 00:00 mouth 2 [place] tablet 00 :00 (two) Medical times Branch daily with meals. norgestimat Yes [id number] 1{tbl} Take 1 Univers e-ethinyl 1-28 tablet by ity o f estradioL 00:00: mouth [place] 0.25-35 00 daily. Medical mg-mcg per Branch tablet norgestimat Yes [id number] 1{tbl} Take 1 Univers e-ethinyl 1-28 tablet by ity o f estradioL 00:00: mouth [place] 0.25-35 00 daily. Medical mg-mcg per Branch tablet PARoxetine Yes [id number] 10mg Take 1 U nivers (PAXIL) 10 1-28 tablet by ity of mg tablet 00:00: mouth [place] 00 daily. Medical Branch norgestimat Yes [id number] 1{tbl} Take 1 Univers e-ethinyl 1-28 tablet by ity o f estradioL 00:00: mouth [place] 0.25-35 00 daily. Medical mg-mcg per Branch tablet PARoxetine Yes [id number] 10mg Take 1 U nivers (PAXIL) 10 1-28 tablet by ity of mg tablet 00:00: mouth [place] 00 daily. Medical Branch norgestimat Yes [id number] 1{tbl} Take 1 Univers e-ethinyl 1-28 tablet by ity o f estradioL 00:00: mouth [place] 0.25-35 00 daily. Medical mg-mcg per Branch tablet PARoxetine Yes [id number] 10mg Take 1 U nivers (PAXIL) 10 1-28 tablet by ity of mg tablet 00:00: mouth [place] 00 daily. Medical Branch norgestimat Yes [id number] 1{tbl} Take 1 Univers e-ethinyl 1-28 tablet by ity o f estradioL 00:00: mouth [place] 0.25-35 00 daily. Medical mg-mcg per Branch tablet PARoxetine Yes [id number] 10mg Take 1 U nivers (PAXIL) 10 1-28 tablet by ity of mg tablet 00:00: mouth [place] 00 daily. [facility] norgestimat Yes [id number] 1{tbl} Take 1 Univers e-ethinyl 1-28 tablet by ity o f estradioL 00:00: mouth [place] 0.25-35 00 daily. Medical mg-mcg per Branch tablet PARoxetine Yes [id number] 10mg Take 1 U nivers (PAXIL) 10 1-28 tablet by ity of mg tablet 00:00: mouth [place] 00 daily. Medical Branch norgestimat Yes [id number] 1{tbl} Take 1 Univers e-ethinyl 1-28 tablet by ity o f estradioL 00:00: mouth [place] 0.25-35 00 daily. Medical mg-mcg per Branch tablet PARoxetine Yes [id number] 10mg Take 1 U nivers (PAXIL) 10 1-28 tablet by ity of mg tablet 00:00: mouth [place] 00 daily. [facility] norgestimat Yes [id number] 1{tbl} Take 1 Univers e-ethinyl 1-28 tablet by ity o f estradioL 00:00: mouth [place] 0.25-35 00 daily. Medical mg-mcg per Branch tablet PARoxetine Yes [id number] 10mg Take 1 U nivers (PAXIL) 10 1-28 tablet by ity of mg tablet 00:00: mouth [place] 00 daily. [facility] norgestimat Yes [id number] 1{tbl} Take 1 Univers e-ethinyl 1-28 tablet by ity o f estradioL 00:00: mouth [place] 0.25-35 00 daily. Medical mg-mcg per Branch tablet PARoxetine Yes [id number] 10mg Take 1 U nivers (PAXIL) 10 1-28 tablet by ity of mg tablet 00:00: mouth [place] 00 daily. [facility] norgestimat Yes [id number] 1{tbl} Take 1 Univers e-ethinyl 1-28 tablet by ity o f estradioL 00:00: mouth [place] 0.25-35 00 daily. Medical mg-mcg per Branch tablet PARoxetine Yes [id number] 10mg Take 1 U nivers (PAXIL) 10 1-28 tablet by ity of mg tablet 00:00: mouth [place] 00 daily. Medical Branch norgestimat Yes [id number] 1{tbl} Take 1 Univers e-ethinyl 1-28 tablet by ity o f estradioL 00:00: mouth [place] 0.25-35 00 daily. Medical mg-mcg per Branch tablet norgestimat Yes [id number] 1{tbl} Take 1 Univers e-ethinyl 1-28 tablet by ity o f estradioL 00:00: mouth [place] 0.25-35 00 daily. Medical mg-mcg per Branch tablet norgestimat Yes [id number] 1{tbl} Take 1 Univers e-ethinyl 1-28 tablet by ity o f estradioL 00:00: mouth [place] 0.25-35 00 daily. Medical mg-mcg per Branch tablet PARoxetine 2020- No [id number] 10mg Take 1 Univers (PAXIL) 10 05-24 03-25 tablet by ity of mg tablet 00:00: 00:00 mouth [place] 00 :00 daily. Medical Branch morpHINE 2020- No 4mg 4 mg, Slow Un inés injection 4 05-18 IV Push, ity of mg 10:15: 09:16 ONCE, 1 [place] 00 :00 dose, Fri [facility] 05/18/20 at Branch [facility]5, STAT morpHINE 2020-2020- No 4mg 4 mg, Slow Un inés injection 4 05-18 IV Push, ity of mg 10:15: 09:16 ONCE, 1 [place] 00 :00 dose, Fri [facility] 05/18/20 at Branch 0415, STAT FENTanyl PF 2020-0 2020- No 50ug 50 mcg, Un inés [...] approving Restricted medication : EKTA MORSE ketorolac No 30mg 30 mg, Unive rs (TORADOL) 05-18 Slow IV ity of injection 08:00: 07:58 Push, [place] 30 mg 00 :00 ONCE, 1 Medical dose, Fri Branch 05/18/20 at 0200, TUSHAR
Fa culty member approving Restricted medication : EKTA MORSE 2019-04 Yes [id number] 1{tbl} Take 1 Univers vitamin 2-30 tablet by ity of w/FA tablet 00:00: mouth [place] 00 daily. Medical Branch docusate 2019-04 Yes [id number] 240mg Take 1 U nivers calcium 240 2-30 capsule by it y of mg capsule 00:00: mouth once [place] 00 daily as Medical needed for Branch Constipati on. ferrous 2019-04 Yes [id number] 325mg Take 1 Un inés sulfate 325 2-30 tablet by ity of mg (65 mg 00:00: mouth 2 [place] iron) 00 (two) Medical tablet times Branch daily. ibuprofen 2019-04 Yes [id number] 600mg Take 1 Univers 600 mg 2-30 tablet by ity of tablet 00:00: mouth [place] 00 every 6 Medical (six) Branch hours as needed (Pain). Take with food or milk. 2019-04 Yes [id number] 1{tbl} Take 1 Univers vitamin 2-30 tablet by ity of w/FA tablet 00:00: mouth [place] 00 daily. Medical Branch docusate 2019-04 Yes [id number] 240mg Take 1 U nivers calcium 240 2-30 capsule by it y of mg capsule 00:00: mouth once [place] 00 daily as Medical needed for Branch Constipati on. ferrous 2019-04 Yes [id number] 325mg Take 1 Un inés sulfate 325 2-30 tablet by ity of mg (65 mg 00:00: mouth 2 [place] iron) 00 (two) Medical tablet times Branch daily. ibuprofen 2019-04 Yes [id number] 600mg Take 1 Univers 600 mg 2-30 tablet by ity of tablet 00:00: mouth [place] 00 every 6 Medical (six) Branch hours as needed (Pain). Take with food or milk. 2019-04 Yes [id number] 1{tbl} Take 1 Univers vitamin 2-30 tablet by ity of w/FA tablet 00:00: mouth [place] 00 daily. Medical Branch docusate 2019-04 Yes [id number] 240mg Take 1 U nivers calcium 240 2-30 capsule by it y of mg capsule 00:00: mouth once [place] 00 daily as Medical needed for Branch Constipati on. ferrous 2019-04 Yes [id number] 325mg Take 1 Un inés sulfate 325 2-30 tablet by ity of mg (65 mg 00:00: mouth 2 [place] iron) 00 (two) Medical tablet times Branch daily. ibuprofen 2019-04 Yes [id number] 600mg Take 1 Univers 600 mg 2-30 tablet by ity of tablet 00:00: mouth [place] 00 every 6 Medical (six) Branch hours as needed (Pain). Take with food or milk. 2019-04 Yes [id number] 1{tbl} Take 1 Univers vitamin 2-30 tablet by ity of w/FA tablet 00:00: mouth [place] 00 daily. Medical Branch docusate 2019-04 Yes [id number] 240mg Take 1 U nivers calcium 240 2-30 capsule by it y of mg capsule 00:00: mouth once [place] 00 daily as Medical needed for Branch Constipati on. ferrous 2019-04 Yes [id number] 325mg Take 1 Un inés sulfate 325 2-30 tablet by ity of mg (65 mg 00:00: mouth 2 [place] iron) 00 (two) Medical tablet times Branch daily. ibuprofen 2019-04 Yes [id number] 600mg Take 1 Univers 600 mg 2-30 tablet by ity of tablet 00:00: mouth [place] 00 every 6 Medical (six) Branch hours as needed (Pain). Take with food or milk. 2019-04 Yes [id number] 1{tbl} Take 1 Univers vitamin 2-30 tablet by ity of w/FA tablet 00:00: mouth [place] 00 daily. Medical Branch docusate 2019-04 Yes [id number] 240mg Take 1 U nivers calcium 240 2-30 capsule by it y of mg capsule 00:00: mouth once [place] 00 daily as Medical needed for Branch Constipati on. ferrous 2019-04 Yes [id number] 325mg Take 1 Un inés sulfate 325 2-30 tablet by ity of mg (65 mg 00:00: mouth 2 [place] iron) 00 (two) Medical tablet times Branch daily. ibuprofen 2019-04 Yes [id number] 600mg Take 1 Univers 600 mg 2-30 tablet by ity of tablet 00:00: mouth [place] 00 every 6 Medical (six) Branch hours as needed (Pain). Take with food or milk. 2019-04 Yes [id number] 1{tbl} Take 1 Univers vitamin 2-30 tablet by ity of w/FA tablet 00:00: mouth [place] 00 daily. Medical Branch docusate 2019-04 Yes [id number] 240mg Take 1 U nivers calcium 240 2-30 capsule by it y of mg capsule 00:00: mouth once [place] 00 daily as Medical needed for Branch Constipati on. ferrous 2019-04 Yes [id number] 325mg Take 1 Un inés sulfate 325 2-30 tablet by ity of mg (65 mg 00:00: mouth 2 [place] iron) 00 (two) Medical tablet times Branch daily. ibuprofen 2019-04 Yes [id number] 600mg Take 1 [facility] 600 mg 2-30 tablet by ity of tablet 00:00: mouth [place] 00 every 6 Medical (six) Branch hours as needed (Pain). Take with food or milk. 2019- Yes [id number] 1{tbl} Take 1 [facility] vitamin 2-30 tablet by ity of w/FA tablet 00:00: mouth [place] 00 daily. Medical Branch docusate 2019-04 Yes [id number] 240mg Take 1 U nivers calcium 240 2-30 capsule by it y of mg capsule 00:00: mouth once [place] 00 daily as Medical needed for Branch Constipati on. ferrous 2019-04 Yes [id number] 325mg Take 1 Un inés sulfate 325 2-30 tablet by ity of mg (65 mg 00:00: mouth 2 [place] iron) 00 (two) Medical tablet times Branch daily. ibuprofen 2019-04 Yes [id number] 600mg Take 1 [facility] 600 mg 2-30 tablet by ity of tablet 00:00: mouth [place] 00 every 6 Medical (six) Branch hours as needed (Pain). Take with food or milk. 2019-04 Yes [id number] 1{tbl} Take 1 [facility] vitamin 2-30 tablet by ity of w/FA tablet 00:00: mouth [place] 00 daily. Medical Branch docusate 2019-04 Yes [id number] 240mg Take 1 U nivers calcium 240 2-30 capsule by it y of mg capsule 00:00: mouth once [place] 00 daily as Medical needed for Branch Constipati on. ferrous 2019-04 Yes [id number] 325mg Take 1 Un inés sulfate 325 2-30 tablet by ity of mg (65 mg 00:00: mouth 2 [place] iron) 00 (two) Medical tablet times Branch daily. ibuprofen 2019-04 Yes [id number] 600mg Take 1 [facility] 600 mg 2-30 tablet by ity of tablet 00:00: mouth [place] 00 every 6 Medical (six) Branch hours as needed (Pain). Take with food or milk. 2019-04 Yes [id number] 1{tbl} Take 1 [facility] vitamin 2-30 tablet by ity of w/FA tablet 00:00: mouth [place] 00 daily. Medical Branch docusate 2019-04 Yes [id number] 240mg Take 1 U nivers calcium 240 2-30 capsule by it y of mg capsule 00:00: mouth once [place] 00 daily as Medical needed for Branch Constipati on. ferrous 2019-04 Yes [id number] 325mg Take 1 Un inés sulfate 325 2-30 tablet by ity of mg (65 mg 00:00: mouth 2 [place] iron) 00 (two) Medical tablet times Branch daily. ibuprofen 2019-04 Yes [id number] 600mg Take 1 [facility] 600 mg 2-30 tablet by ity of tablet 00:00: mouth [place] 00 every 6 Medical (six) Branch hours as needed (Pain). Take with food or milk. 2019-04 Yes [id number] 1{tbl} Take 1 [facility] vitamin 2-30 tablet by ity of w/FA tablet 00:00: mouth [place] 00 daily. Medical Branch docusate 2019-04 Yes [id number] 240mg Take 1 U nivers calcium 240 2-30 capsule by it y of mg capsule 00:00: mouth once [place] 00 daily as Medical needed for Branch Constipati on. ferrous 2019-04 Yes [id number] 325mg Take 1 Un inés sulfate 325 2-30 tablet by ity of mg (65 mg 00:00: mouth 2 [place] iron) 00 (two) Medical tablet times Branch daily. ibuprofen 2019-04 Yes [id number] 600mg Take 1 [facility] 600 mg 2-30 tablet by ity of tablet 00:00: mouth [place] 00 every 6 Medical (six) Branch hours as needed (Pain). Take with food or milk. 2019-04 Yes [id number] 1{tbl} Take 1 [facility] vitamin 2-30 tablet by ity of w/FA tablet 00:00: mouth [place] 00 daily. Medical Branch docusate 2019-04 Yes [id number] 240mg Take 1 U nivers calcium 240 2-30 capsule by it y of mg capsule 00:00: mouth once [place] 00 daily as Medical needed for Branch Constipati on. ferrous 2019-04 Yes [id number] 325mg Take 1 Un inés sulfate 325 2-30 tablet by ity of mg (65 mg 00:00: mouth 2 [place] iron) 00 (two) Medical tablet times Branch daily. ibuprofen 2019-04 Yes [id number] 600mg Take 1 [facility] 600 mg 2-30 tablet by ity of tablet 00:00: mouth [place] 00 every 6 Medical (six) Branch hours as needed (Pain). Take with food or milk. 2019-04 Yes [id number] 1{tbl} Take 1 [facility] vitamin 2-30 tablet by ity of w/FA tablet 00:00: mouth [place] 00 daily. Medical Branch docusate 2019-04 Yes [id number] 240mg Take 1 U nivers calcium 240 2-30 capsule by it y of mg capsule 00:00: mouth once [place] 00 daily as Medical needed for Branch Constipati on. ferrous 2019-04 Yes [id number] 325mg Take 1 Un inés sulfate 325 2-30 tablet by ity of mg (65 mg 00:00: mouth 2 [place] iron) 00 (two) Medical tablet times Branch daily. ibuprofen 2019-04 Yes [id number] 600mg Take 1 [facility] 600 mg 2-30 tablet by ity of tablet 00:00: mouth [place] 00 every 6 Medical (six) Branch hours as needed (Pain). Take with food or milk. 2019-04- No [id number] 1{tbl} Take 1 [facility] vitamin 2-30 03-25 tablet by ity of w/FA tablet 00:00: 00:00 mouth [place] 00 :00 daily. Medical Branch docusate 2019-04- No [id number] 240mg Take 1 [facility] calcium 240 2-30 03-25 capsule by i ty of mg capsule 00:00: 00:00 mouth once [place] 00 :00 daily as Medical needed for Branch Constipati on. ferrous 2019-04- No [id number] 325mg Take 1 U nivers sulfate 325 2-30 03-25 tablet by it y of mg (65 mg 00:00: 00:00 mouth 2 [place] iron) 00 :00 (two) Medical tablet times Branch daily. ibuprofen 2019-04- No [id number] 600mg Take 1 [facility] 600 mg 2-30 03-25 tablet by ity of tablet 00:00: 00:00 mouth [place] 00 :00 every 6 Medical (six) Branch hours as needed (Pain). Take with food or milk. HYDROcodone 2019-04- No [id number] 1{tbl} Take 1 U nivers -acetaminop 2-30 01-07 tablet by it y of hen 5-325 00:00: 05:59 mouth [place] mg tablet 00 :00 every 6 Medical (six) Branch hours as needed (Pain scale above 4) for up to 7 days. Do not exceed 3 grams of acetaminop hen in 24 hours. Indication s: acute pain 2019-04 Yes Take by Univer s 25/iron 1-25 mouth. ity of fum/folic/d 21:30: [place] [address] [address] Medical (-1 Branch ORAL) 2020- Yes Take by Univer s 25/iron 1-25 mouth. ity of fum/folic/d 21:30: [place] [address] Medical (-1 Branch ORAL) 2020- Yes Take by Univer s 25/iron 1-25 mouth. ity of fum/folic/d 21:30: [place] [address] Medical (-1 Branch ORAL) 2020- Yes Take by Univer s 25/iron 1-25 mouth. ity of fum/folic/d 21:30: [place] [address] Medical (-1 Branch ORAL) 2020- Yes Take by Univer s 25/iron 1-25 mouth. ity of fum/folic/d 21:30: [address] (-1 Branch ORAL) 2020- Yes Take by Univer s 25/iron 1-25 mouth. ity of fum/folic/d 21:30: [address] (-1 Branch ORAL) 2020- Yes Take by Univer s 25/iron 1-25 mouth. ity of fum/folic/d 21:30: [address] (-1 Branch ORAL) 2020- Yes Take by Univer s 25/iron 1-25 mouth. ity of fum/folic/d 21:30: [address] (-1 Branch ORAL) 2020- Yes Take by Univer s 25/iron 1-25 mouth. ity of fum/folic/d 21:30: [address] (-1 Branch ORAL) 2020- Yes Take by Univer s 25/iron 1-25 mouth. ity of fum/folic/d 21:30: [place] [address] Medical (-1 Branch ORAL) 2020- Yes Take by Univer s 25/iron 1-25 mouth. ity of fum/folic/d 21:30: [place] [address] Medical (-1 Branch ORAL) PNV 2020- Yes [id number] Take 1 [facility] 102-iron-fo 0-20 TAB-CAP/M2 it y of late-dha 00:00: by mouth [place] (VITAFOL FE 00 daily. Medica l PLUS) 90 mg Branch iron- 1 mg-200 mg Cap PNV 2020- Yes [id number] Take 1 [facility] 102-iron-fo 0-20 TAB-CAP/M2 it y of late-dha 00:00: by mouth [place] (VITAFOL FE 00 daily. Medica l PLUS) 90 mg Branch iron- 1 mg-200 mg Cap PNV 2020 Yes [id number] Take 1 [facility] 102-iron-fo 0-20 TAB-CAP/M2 it y of late-dha 00:00: by mouth [place] (VITAFOL FE 00 daily. Medica l PLUS) 90 mg Branch iron- 1 mg-200 mg Cap PNV 2019-04 Yes [id number] Take 1 [facility] 102-iron-fo 0-20 TAB-CAP/M2 it y of late-dha 00:00: by mouth [place] (VITAFOL FE 00 daily. Medica l PLUS) 90 mg Branch iron- 1 mg-200 mg Cap PNV 2019-04 Yes [id number] Take 1 [facility] 102-iron-fo 0-20 TAB-CAP/M2 it y of late-dha 00:00: by mouth [place] (VITAFOL FE 00 daily. Medica l PLUS) 90 mg Branch iron- 1 mg-200 mg Cap PNV 2019-04 Yes [id number] Take 1 [facility] 102-iron-fo 0-20 TAB-CAP/M2 it y of late-dha 00:00: by mouth [place] (VITAFOL FE 00 daily. Medica l PLUS) 90 mg Branch iron- 1 mg-200 mg Cap PNV 2019-04 Yes [id number] Take 1 [facility] 102-iron-fo 0-20 TAB-CAP/M2 it y of late-dha 00:00: by mouth [place] (VITAFOL FE 00 daily. Medica l PLUS) 90 mg Branch iron- 1 mg-200 mg Cap PNV 2019-04 2020- No [id number] Take 1 Univer s 102-iron-fo 0-20 11-25 TAB-CAP/M2 i ty of late-dha 00:00: 00:00 [place] mouth [place] (VITAFOL FE 00 :00 daily. Medica l PLUS) 90 mg Branch iron- 1 mg-200 mg Cap PNV 2019-04 2020- No [id number] Take 1 Univer s 102-iron-fo 0-20 11-25 TAB-CAP/M2 i ty of late-dha 00:00: 00:00 by mouth [place] (VITAFOL FE 00 :00 daily. Medica l PLUS) 90 mg Branch iron- 1 mg-200 mg Cap PNV 2019- 2020- No [id number] Take 1 Univer s 102-iron-fo 0-20 11-25 TAB-CAP/M2 i ty of late-dha 00:00: 00:00 by mouth [place] (VITAFOL FE 00 :00 daily. Medica l PLUS) 90 mg Branch iron- 1 mg-200 mg Cap metoclopram 2020-0 Yes [id number] 10mg Take 1 [facility] levi HCl 10 8-11 tablet by ity of mg tablet 00:00: mouth [place] 00 every 6 Medical (six) Branch hours as needed for Nausea and Vomiting (N/V). metoclopram 2020-0 Yes [id number] 10mg Take 1 [facility] levi HCl 10 8-11 tablet by ity of mg tablet 00:00: mouth [place] 00 every 6 Medical (six) Branch hours as needed for Nausea and Vomiting (N/V). metoclopram 2020-0 Yes [id number] 10mg Take 1 [facility] levi HCl 10 8-11 tablet by ity of mg tablet 00:00: mouth [place] 00 every 6 Medical (six) Branch hours as needed for Nausea and Vomiting (N/V). metoclopram 2020-0 Yes [id number] 10mg Take 1 [facility] levi HCl 10 8-11 tablet by ity of mg tablet 00:00: mouth [place] 00 every 6 Medical (six) Branch hours as needed for Nausea and Vomiting (N/V). metoclopram 2020-0 Yes [id number] 10mg Take 1 [facility] levi HCl 10 8-11 tablet by ity of mg tablet 00:00: mouth [place] 00 every 6 Medical (six) Branch hours as needed for Nausea and Vomiting (N/V). metoclopram 2020-0 Yes [id number] 10mg Take 1 [facility] levi HCl 10 8-11 tablet by ity of mg tablet 00:00: mouth [place] 00 every 6 Medical (six) Branch hours as needed for Nausea and Vomiting (N/V). metoclopram 2020-0 2020- No [id number] 10mg Take 1 [facility] levi HCl 10 8-11 10-20 tablet by ity of mg tablet 00:00: 00:00 mouth [place] 00 :00 every 6 Medical (six) Branch hours as needed for Nausea and Vomiting (N/V). metoclopram 2020-0 2020- No 10mg 10 mg, Uni vers levi HCl 11-27 08-03 Slow IV ity of (REGLAN) 23:00: 21:59 Push, [place] injection 00 :00 ONCE, 1 Medical 10 mg dose, [facility] Branch 11/28/19 at 1800, TUSHAR NaCl 0.9% 0 2020- No 1000mL at 999 Uni vers (NS) bolus 11-27 08-04 mL/hr, ity of infusion 21:15: 00:22 1,000 mL, [place] 1,000 mL 00 :00 IV Medical Infusion, Branch ONCE, 1 dose, [facility] 11/28/19 at 1615, TUSHAR doxylamine- 2020-0 Yes [id number] Take 2 [facility] pyridoxine, 8-03 tabs by ity o f vit B6, 00:00: mouth qhs. [place] (DICLEGIS) 00 If nausea Medi dee 10-10 mg not Branch per tablet controlled may increase to max of 4 tabs daily-1 tab in am, 1 tab mid afternoon and 2 tabs qhs doxylamine- 2020-0 Yes [id number] Take 2 [facility] pyridoxine, 8-03 tabs by ity o f vit B6, 00:00: mouth [place]. [place] (DICLEGIS) 00 If nausea Medi dee 10-10 mg not Branch per tablet controlled may increase to max of 4 tabs daily-1 tab in am, 1 tab mid afternoon and 2 tabs qhs doxylamine- 2020-0 Yes [id number] Take 2 [facility] pyridoxine, 8-03 tabs by ity o f vit B6, 00:00: mouth [place]. [place] (DICLEGIS) 00 If nausea Medi dee 10-10 mg not Branch per tablet controlled may increase to max of 4 tabs daily-1 tab in am, 1 tab mid afternoon and 2 tabs qhs doxylamine- 2020-0 Yes [id number] Take 2 [facility] pyridoxine, 8-03 tabs by ity o f vit B6, 00:00: mouth [place]. [place] (DICLEGIS[place] 00 If nausea Medi dee 10-10 mg not Branch per tablet controlled may increase to max of 4 tabs daily-1 tab in am, 1 tab mid afternoon and 2 tabs qhs doxylamine- 2020-0 Yes [id number] Take 2 [facility] pyridoxine, 8-03 tabs by ity o f vit B6, 00:00: mouth [place]. [place] (DICLEGIS) 00 If nausea Medi dee 10-10 mg not Branch per tablet controlled may increase to max of 4 tabs daily-1 tab in am, 1 tab mid afternoon and 2 tabs qhs doxylamine- 2020-0 Yes [id number] Take 2 [facility] pyridoxine, 8-03 tabs by ity o f vit B6, 00:00: mouth [place]. [place] (DICLEGIS[place] 00 If nausea Medi dee 10-10 mg not Branch per tablet controlled may increase to max of 4 tabs daily-1 tab in am, 1 tab mid afternoon and 2 tabs qhs doxylamine- 2020-0 Yes [id number] Take 2 [facility] pyridoxine, 8-03 tabs by ity o f vit B6, 00:00: mouth [place]. [place] (DICLEGIS[place] 00 If nausea Medi dee 10-10 mg not Branch per tablet controlled may increase to max of 4 tabs daily-1 tab in am, 1 tab mid afternoon and 2 tabs qhs doxylamine- 2020-0 Yes [id number] Take 2 [facility] pyridoxine, 8-03 tabs by ity o f vit B6, 00:00: mouth [place]. [place] (DICLEGIS[place] 00 If nausea Medi dee 10-10 mg not Branch per tablet controlled may increase to max of 4 tabs daily-1 tab in am, 1 tab mid afternoon and 2 tabs qhs doxylamine- 2020-0 2020- No [id number] Take 2 [facility] pyridoxine, 8-03 10-20 tabs by ity of vit B6, 00:00: 00:00 mouth qhs. [place] (DICLEGIS) 00 :00 If nausea Medi dee 10-10 mg not Branch per tablet controlled may increase to max of 4 tabs daily-1 tab in am, 1 tab mid afternoon and 2 tabs qhs ampicillin 2020-0 2020- No [id number] 500mg Take 1 [facility] 500 mg 7- 07-24 capsule by ity of capsule 00:00: 04:59 mouth 4 [place] 00 :00 (four) Medical times Branch daily for 10 days. ampicillin 0 2020- No [id number] 500mg Take 1 [facility] 500 mg 7-13 07-24 capsule by ity of capsule 00:00: 04:59 mouth 4 [place] 00 :00 (four) Medical times Branch daily for 10 days. proMETHazin 2020-0 Yes [id number] 25mg Take 1 [facility] e 25 mg 7-09 tablet by ity of tablet 00:00: mouth [place] 00 every 6 Medical (six) Branch hours as needed for Nausea and Vomiting (N/V). proMETHazin 2020-0 Yes [id number] 25mg Take 1 [facility] e 25 mg 7-09 tablet by ity of tablet 00:00: mouth [place] 00 every 6 Medical (six) Branch hours as needed for Nausea and Vomiting (N/V). proMETHazin 2020-0 Yes [id number] 25mg Take 1 Univers e 25 mg 7-09 tablet by ity of tablet 00:00: mouth [place] 00 every 6 Medical (six) Branch hours as needed for Nausea and Vomiting (N/V). proMETHazin 2020-0 Yes [id number] 25mg Take 1 Univers e 25 mg 7-09 tablet by ity of tablet 00:00: mouth [place] 00 every 6 Medical (six) Branch hours as needed for Nausea and Vomiting (N/V). proMETHazin 2020-0 Yes [id number] 25mg Take 1 Univers e 25 mg 7-09 tablet by ity of tablet 00:00: mouth [place] 00 every 6 Medical (six) Branch hours as needed for Nausea and Vomiting (N/V). proMETHazin 2020-0 Yes [id number] 25mg Take 1 Univers e 25 mg 7-09 tablet by ity of tablet 00:00: mouth [place] 00 every 6 Medical (six) Branch hours as needed for Nausea and Vomiting (N/V). proMETHazin 2020-0 Yes [id number] 25mg Take 1 Univers e 25 mg 7-09 tablet by ity of tablet 00:00: mouth [place] 00 every 6 Medical (six) Branch hours as needed for Nausea and Vomiting (N/V). proMETHazin 2020-0 Yes [id number] 25mg Take 1 [facility] e 25 mg 7-09 tablet by ity of tablet 00:00: mouth [place] 00 every 6 Medical (six) Branch hours as needed for Nausea and Vomiting (N/V). proMETHazin 2020-0 Yes [id number] 25mg Take 1 Univers e 25 mg 7-09 tablet by ity of tablet 00:00: mouth [place] 00 every 6 Medical (six) Branch hours as needed for Nausea and Vomiting (N/V). proMETHazin 2020-0 Yes [id number] 25mg Take 1 Univers e 25 mg 7-09 tablet by ity of tablet 00:00: mouth [place] 00 every 6 Medical (six) Branch hours as needed for Nausea and Vomiting (N/V). proMETHazin 2020-0 Yes [id number] 25mg Take 1 Univers e 25 mg 7-09 tablet by ity of tablet 00:00: mouth [place] 00 every 6 Medical (six) Branch hours as needed for Nausea and Vomiting (N/V). proMETHazin 2020-0 Yes [id number] 25mg Take 1 Univers e 25 mg 7-09 tablet by ity of tablet 00:00: mouth [place] 00 every 6 Medical (six) Branch hours as needed for Nausea and Vomiting (N/V). proMETHazin 2020-0 Yes [id number] 25mg Take 1 Univers e 25 mg 7-09 tablet by ity of tablet 00:00: mouth [place] 00 every 6 Medical (six) Branch hours as needed for Nausea and Vomiting (N/V). proMETHazin 2020-0 Yes [id number] 25mg Take 1 Univers e 25 mg 7-09 tablet by ity of tablet 00:00: mouth [place] 00 every 6 Medical (six) Branch hours as needed for Nausea and Vomiting (N/V). proMETHazin 2020-0 Yes [id number] 25mg Take 1 [facility] e 25 mg 7-09 tablet by ity of tablet 00:00: mouth [place] 00 every 6 Medical (six) Branch hours as needed for Nausea and Vomiting (N/V). proMETHazin 2020-0 Yes [id number] 25mg Take 1 Univers e 25 mg 7-09 tablet by ity of tablet 00:00: mouth [place] 00 every 6 Medical (six) Branch hours as needed for Nausea and Vomiting (N/V). proMETHazin 2020-0 Yes [id number] 25mg Take 1 [facility] e 25 mg 7-09 tablet by ity of tablet 00:00: mouth [place] 00 every 6 Medical (six) Branch hours as needed for Nausea and Vomiting (N/V). proMETHazin 2020-0 2020- No [id number] 25mg Take 1 Univers e 25 mg 7-09 10-20 tablet by ity of tablet 00:00: 00:00 mouth [place] 00 :00 every 6 Medical (six) Branch hours as needed for Nausea and Vomiting (N/V). Acyclovir Acyclovir Yes [facility] 1 tablet Common 7-25 [facility] 00:00: - [facility] 00 [facility] butalbital- 2017-0 Yes 1{tbl} Take 1 Un [...] by ity of capsule 00:00: mouth 3 00 (three) Medical times Branch daily. naproxen 2018-0 Yes 500mg Take 1 Univer s 500 mg 3-25 tablet by ity of tablet 00:00: mouth 2 00 (two) Medical times Branch daily with meals. amoxicillin 2018-0 Yes 500mg Take 1 Uni vers 500 mg 3-25 capsule by ity of capsule 00:00: mouth 3 00 (three) Medical times Branch daily. naproxen [...] No known No Univers medications ity of [facility] Immunizations Ordered Filled Immunization Date Status Comments [facility] e Immunization Name Name TDAP 2020-02-14 Completed University of 00:00:00 [facility] Influenza Virus 2020-02-14 Completed Universit y of Vaccine [place] .5 mL 00:00:00 [facility] 6+ MO Branch TDAP 2020-02-14 Completed University of 00:00:00 [facility] Influenza Virus 2020-02-14 Completed Universit y of Vaccine [place] .5 mL 00:00:00 [facility] 6+ MO Branch TDAP 2020-02-14 Completed University of 00:00:00 [facility] Influenza Virus 2020-02-14 Completed Universit y of Vaccine [place] .5 mL 00:00:00 [facility] 6+ MO Branch TDAP 2020-02-14 Completed University of 00:00:00 [facility] Influenza Virus 2020-02-14 Completed Universit y of Vaccine [place] .5 mL 00:00:00 [place] [facility] 6+ MO Branch TDAP 2020-02-14 Completed University of 00:00:00 [place] [facility] [place] Influenza Virus 2020-02-14 Completed Universit y of Vaccine [place] .5 mL 00:00:00 [place] [facility] 6+ MO Branch TDAP 2020-02-14 Completed University of 00:00:00 [place] [facility] [place] Influenza Virus 2020-02-14 Completed Universit y of Vaccine [place] .5 mL 00:00:00 [place] [facility] 6+ MO Branch TDAP 2020-02-14 Completed University of 00:00:00 [facility] Influenza Virus 2020-02-14 Completed Universit y of Vaccine [place] .5 mL 00:00:00 [place] [facility] 6+ MO Branch TDAP 2020-02-14 Completed University of 00:00:00 [facility] Influenza Virus 2020-02-14 Completed Universit y of Vaccine [place] .5 mL 00:00:00 [place] [facility] 6+ MO Branch TDAP 2020-02-14 Completed University of 00:00:00 [facility] Influenza Virus 2020-02-14 Completed Universit y of Vaccine [place] .5 mL 00:00:00 [place] [facility] 6+ MO Branch TDAP 2020-02-14 Completed University of 00:00:00 [facility] Influenza Virus 2020-02-14 Completed Universit y of Vaccine [place] .5 mL 00:00:00 [place] [facility] 6+ MO Branch TDAP 2020-02-14 Completed University of 00:00:00 [facility] Influenza Virus 2020-02-14 Completed Universit y of Vaccine [place] .5 mL 00:00:00 [place] [facility] 6+ MO Branch TDAP 2020-02-14 Completed University of 00:00:00 [facility] Influenza Virus 2020-02-14 Completed Universit y of Vaccine [place] .5 mL 00:00:00 [place] [facility] 6+ MO Branch TDAP 2020-02-14 Completed University of 00:00:00 [facility] Influenza Virus 2020-02-14 Completed Universit y of Vaccine [place] .5 mL 00:00:00 [place] [facility] 6+ MO Branch TDAP 2020-02-14 Completed University of 00:00:00 [place] [facility] [place] Influenza Virus 2020-02-14 Completed Universit y of Vaccine [place] .5 mL 00:00:00 [place] [facility] 6+ MO Branch TDAP 2020-02-14 Completed University of 00:00:00 [place] [facility] [place] Influenza Virus 2020-02-14 Completed Universit y of Vaccine [place] .5 mL 00:00:00 [place] [facility] 6+ MO Branch TDAP 2020-02-14 Completed University of 00:00:00 [facility] Influenza Virus 2020-02-14 Completed Universit y of Vaccine [place] .5 mL 00:00:00 [place] [facility] 6+ MO Branch TDAP 2020-02-14 Completed University of 00:00:00 [facility] Influenza Virus 2020-02-14 Completed Universit y of Vaccine [place] .5 mL 00:00:00 [place] [facility] 6+ MO Branch TDAP 2020-02-14 Completed University of 00:00:00 [facility] Influenza Virus 2020-02-14 Completed Universit y of Vaccine [place] .5 mL 00:00:00 [place] [facility] 6+ MO Branch TDAP 2020-02-14 Completed University of 00:00:00 [facility] Influenza Virus 2020-02-14 Completed Universit y of Vaccine [place] .5 mL 00:00:00 [facility] 6+ MO Branch TDAP 2020-02-14 Completed University of 00:00:00 [facility] Influenza Virus 2020-02-14 Completed Universit y of Vaccine [place] .5 mL 00:00:00 [facility] 6+ MO Branch TDAP 2020-02-14 Completed University of 00:00:00 [facility] Influenza Virus 2020-02-14 Completed Universit y of Vaccine [place] .5 mL 00:00:00 [facility] 6+ MO Branch TDAP 2020-02-14 Completed University of 00:00:00 [facility] Influenza Virus 2020-02-14 Completed Universit y of Vaccine [place] .5 mL 00:00:00 [place] [facility] 6+ MO Branch TDAP 2020-02-14 Completed University of 00:00:00 [facility] Influenza Virus 2020-02-14 Completed Universit y of Vaccine [place] .5 mL 00:00:00 [place] [facility] 6+ MO Branch TDAP 2020-02-14 Completed University of 00:00:00 [facility] Influenza Virus 2020-02-14 Completed Universit y of Vaccine [place] .5 mL 00:00:00 [place] [facility] 6+ MO Branch TDAP 2020-02-14 Completed University of 00:00:00 [facility] Influenza Virus 2020-02-14 Completed Universit y of Vaccine [place] .5 mL 00:00:00 [place] [facility] 6+ MO Branch TDAP 2020-02-14 Completed University of 00:00:00 [place] [facility] [place] Influenza Virus 2020-02-14 Completed Universit y of Vaccine [place] .5 mL 00:00:00 [place] [facility] IM 6+ MO Branch TDAP 2020-02-14 Completed University of 00:00:00 [place] [facility] [place] Influenza Virus 2020-02-14 Completed Universit y of Vaccine [place] .5 mL 00:00:00 [place] [facility] IM 6+ MO Branch TDAP 2020-02-14 Completed University of 00:00:00 [place] [facility] [place] Influenza Virus 2020-02-14 Completed Universit y of Vaccine [place] .5 mL 00:00:00 [place] [facility] 6+ MO Branch TDAP 2020-02-14 Completed University of 00:00:00 [place] [facility] [place] Influenza Virus 2020-02-14 Completed Universit y of Vaccine [place] .5 mL 00:00:00 [place] [facility] 6+ MO Branch TDAP 2020-02-14 Completed University of 00:00:00 [place] [facility] [place] Influenza Virus 2020-02-14 Completed Universit y of Vaccine [place] .5 mL 00:00:00 [place] [facility] 6+ MO Branch TDAP 2020-02-14 Completed University of 00:00:00 [place] [facility] [place] Influenza Virus 2020-02-14 Completed Universit y of Vaccine [place] .5 mL 00:00:00 [place] [facility] 6+ MO Branch TDAP 2020-02-14 Completed University of 00:00:00 [place] [facility] [place] Influenza Virus 2020-02-14 Completed Universit y of Vaccine [place] .5 mL 00:00:00 [place] [facility] 6+ MO Branch TDAP 2020-02-14 Completed University of 00:00:00 [place] [facility] [place] Influenza Virus 2020-02-14 Completed Universit y of Vaccine [place] .5 mL 00:00:00 [place] [facility] 6+ MO Branch TDAP 2020-02-14 Completed University of 00:00:00 [place] [facility] Influenza Virus 2020-02-14 Completed Universit y of Vaccine [place] .5 mL 00:00:00 [place] [facility] IM 6+ MO Branch TDAP 2020-02-14 Completed University of 00:00:00 [facility] Influenza Virus 2020-02-14 Completed Universit y of Vaccine [place] .5 mL 00:00:00 [place] [facility] IM 6+ MO Branch TDAP 2020-02-14 Completed University of 00:00:00 [facility] Influenza Virus 2020-02-14 Completed Universit y of Vaccine [place] .5 mL 00:00:00 [facility] [facility] IM 6+ MO Branch TDAP 2020-02-14 Completed [facility] of 00:00:00 [facility] Influenza Virus 2020-02-14 Completed Universit y of Vaccine Quad .5 mL 00:00:00 [facility] IM 6+ MO Branch Influenza Virus 2015-02-01 Completed Universit y of [facility] IM 3+ 00:00:00 [facility] Influenza Virus 2015-02-01 Completed Universit y of [facility] IM 3+ 00:00:00 [facility] Influenza Virus 2015-02-01 Completed Universit y of [facility] IM 3+ 00:00:00 [facility] Influenza Virus 2015-02-01 Completed [facility]it y of [facility] IM 3+ 00:00:00 [facility] Influenza Virus 2015-02-01 Completed [facility]it y [facility] IM 3+ 00:00:00 [facility] Influenza Virus 2015-02-01 Completed [facility]it y [facility] IM 3+ 00:00:00 [facility] Influenza Virus 2015-02-01 Completed [facility]it y [facility] IM 3+ 00:00:00 [facility] Influenza Virus 2015-02-01 Completed [facility]it y of [facility] IM 3+ 00:00:00 [facility] Influenza Virus 2015-02-01 Completed [facility]it y of [facility] IM 3+ 00:00:00 [facility] Influenza Virus 2015-02-01 Completed [facility]it y of [facility] IM 3+ 00:00:00 [facility] Influenza Virus 2015-02-01 Completed [facility]it y of [facility] IM 3+ 00:00:00 [facility] Influenza Virus 2015-02-01 Completed [facility]it y of [facility] IM 3+ 00:00:00 [facility] Influenza Virus 2015-02-01 Completed [facility]it y of [facility] IM 3+ 00:00:00 [facility] Influenza Virus 2015-02-01 Completed [facility]it y of [facility] IM 3+ 00:00:00 [facility] Influenza Virus 2015-02-01 Completed [facility]it y [facility] IM 3+ 00:00:00 [facility] Influenza Virus 2015-02-01 Completed [facility]it y [facility] IM 3+ 00:00:00 [facility] Influenza Virus 2015-02-01 Completed [facility]it y [facility] IM 3+ 00:00:00 [facility] Influenza Virus 2015-02-01 Completed [facility]it y of [facility] IM 3+ 00:00:00 [facility] Influenza Virus 2015-02-01 Completed Universit y of [facility] IM 3+ 00:00:00 [facility] Influenza Virus 2015-02-01 Completed [facility]it y of [facility] IM 3+ 00:00:00 [facility] Influenza Virus 2015-02-01 Completed [facility]it y [facility] IM 3+ 00:00:00 [facility] Influenza Virus 2015-02-01 Completed [facility]it y [facility] IM 3+ 00:00:00 [facility] Influenza Virus 2015-02-01 Completed [facility]it y [facility] IM 3+ 00:00:00 [facility] Influenza Virus 2015-02-01 Completed [facility]it y [facility] IM 3+ 00:00:00 [facility] Influenza Virus 2015-02-01 Completed [facility]it y [facility] IM 3+ 00:00:00 [facility] Influenza Virus 2015-02-01 Completed [facility]it y [facility] IM 3+ 00:00:00 [facility] Influenza Virus 2015-02-01 Completed [facility]it y of [facility] IM 3+ 00:00:00 [facility] Influenza Virus 2015-02-01 Completed [facility]it y [facility] IM 3+ 00:00:00 [facility] Influenza Virus 2015-02-01 Completed [facility]it y [facility] IM 3+ 00:00:00 [facility] Influenza Virus 2015-02-01 Completed [facility]it y [facility] IM 3+ 00:00:00 [facility] Influenza Virus 2015-02-01 Completed [facility]it y [facility] IM 3+ 00:00:00 [facility] Influenza Virus 2015-02-01 Completed [facility]it y of [facility] IM 3+ 00:00:00 [facility] Influenza Virus 2015-02-01 Completed [facility]it [facility] IM 3+ 00:00:00 [facility] Influenza Virus 2015-02-01 Completed [facility]it [facility] IM 3+ 00:00:00 [facility] Influenza Virus 2015-02-01 Completed [facility]it y of [facility] IM 3+ 00:00:00 [facility] Influenza Virus 2015-02-01 Completed [facility]it y of [facility] IM 3+ 00:00:00 [facility] Influenza Virus 2015-02-01 Completed [facility]it y of [facility] IM 3+ 00:00:00 [facility] Influenza Virus 2015-02-01 Completed [facility]it [facility] of [facility] IM 3+ 00:00:00 [facility] Influenza Virus 2015-02-01 Completed [facility]it [facility] IM 3+ 00:00:00 [facility] Influenza Virus 2015-02-01 Completed [facility]it [facility] IM 3+ 00:00:00 [facility] Influenza Virus 2015-02-01 Completed [facility]it [facility] IM 3+ 00:00:00 [facility] Influenza Virus 2015-02-01 Completed [facility]it [facility] IM 3+ 00:00:00 [facility] Influenza Virus 2015-02-01 Completed [facility]it [facility] IM 3+ 00:00:00 [facility] Influenza Virus 2015-02-01 Completed [facility]it [facility] IM 3+ 00:00:00 [facility] Influenza Virus 2015-02-01 Completed [facility]it [facility] of [facility] IM 3+ 00:00:00 [facility] Influenza Virus 2015-02-01 Completed [facility]it [facility] of [facility] IM 3+ 00:00:00 [facility] Influenza Virus 2015-02-01 Completed [facility]it [facility] of [facility] IM 3+ 00:00:00 [facility] Influenza Virus 2015-02-01 Completed [facility]it y of [facility] IM 3+ 00:00:00 [facility] Influenza Virus 2015-02-01 Completed [facility] of [facility] IM 3+ 00:00:00 [facility] Influenza Virus 2015-02-01 Completed [facility] IM 3+ 00:00:00 [facility] Influenza Virus 2015-02-01 Completed [facility]it [facility] of [facility] IM 3+ 00:00:00 [facility] Influenza Virus 2015-02-01 Completed [facility]it y of [facility] IM 3+ 00:00:00 [facility] Influenza Virus 2015-02-01 Completed [facility]it y of [facility] IM 3+ 00:00:00 [facility] Influenza Virus 2015-02-01 Completed [facility]it y of [facility] IM 3+ 00:00:00 [facility] Vital Signs Vital Name Observation Time Observation Value Comments Source Systolic blood 2020-08-13 13:47:00 121 mm[Hg] [facility] Diastolic blood 2020-08-13 13:47:00 70 mm[Hg] Unive rsity [facility] Heart rate 2020-08-13 13:47:00 71 /min [facility] [place] [facility] Body temperature 2020-08-13 13:47:00 36.67 Jasmin [facility] [place] [facility] Respiratory rate 2020-08-13 13:47:00 18 /min [facility] [place] [facility] Body height 2020-08-13 13:47:00 180.3 cm [facility] [place] [facility] Body weight 2020-08-13 13:47:00 124.286 kg [facility] [place] [facility] BMI 2020-08-13 13:47:00 38.22 kg/m2 [facility] Systolic blood 2020-08-13 13:47:00 121 mm[Hg] [facility]iver [facility] Diastolic blood 2020-08-13 13:47:00 70 mm[Hg] Unive rsity of [facility] Heart rate 2020-08-13 13:47:00 71 /min [facility] [place] [facility] Body temperature 2020-08-13 13:47:00 36.67 Jasmin [facility] [place] [facility] Respiratory rate 2020-08-13 13:47:00 18 /min [facility] [place] [facility] Body height 2020-08-13 13:47:00 180.3 cm [facility] [place] [facility] Body weight 2020-08-13 13:47:00 124.286 kg [facility] [place] [facility] BMI 2020-08-13 13:47:00 38.22 kg/m2 [facility] Systolic blood 2020-07-19 15:56:00 116 mm[Hg] [facility] [place] [facility] Diastolic blood 2020-07-19 15:56:00 69 mm[Hg] [facility]ive rsity [facility] Heart rate 2020-07-19 15:56:00 73 /min [facility] [place] [facility] Body temperature 2020-07-19 15:56:00 36.44 Jasmin [facility] [place] [facility] Respiratory rate 2020-07-19 15:56:00 16 /min [facility] [place] [facility] Oxygen saturation in 2020-07-19 15:56:00 99 /min University of Arterial blood by [facility] Pulse oximetry Branch Body weight 2020-07-19 08:45:00 126.554 kg [facility] BMI 2020-07-19 08:45:00 38.93 kg/m2 [facility] Body height 2020-07-18 16:47:00 180.3 cm [facility] Systolic blood 2020-07-10 08:00:00 120 mm[Hg] [facility] Diastolic blood 2020-07-10 08:00:00 78 mm[Hg] [facility]ive rsity [facility] Heart rate 2020-07-10 08:00:00 66 /min [facility] Respiratory rate 2020-07-10 08:00:00 18 /min [facility] Oxygen saturation in 2020-07-10 08:00:00 96 /min University of Arterial blood by [facility] Pulse oximetry Branch Body temperature 2020-07-10 05:53:00 36.56 Jasmin [facility] Body weight 2020-07-10 05:53:00 122.925 kg [facility] BMI 2020-07-10 05:53:00 37.80 kg/m2 [facility] Heart rate 2020-06-08 04:18:00 59 /min [facility] Oxygen saturation in 2020-06-08 04:18:00 98 /min University of Arterial blood by [facility] Pulse oximetry Branch Systolic blood 2020-06-08 04:00:00 140 mm[Hg] [facility]iver [facility] Diastolic blood 2020-06-08 04:00:00 93 mm[Hg] [facility]ive rsity [facility] Respiratory rate 2020-06-08 04:00:00 19 /min [facility] Body temperature 2020-06-08 03:42:00 36.72 Jasmin [facility] Body weight 2020-06-08 03:42:00 122.925 kg [facility] BMI 2020-06-08 03:42:00 37.80 kg/m2 Universi ty of [facility] Systolic blood 2020-05-24 22:55:00 122 mm[Hg] Univer sity of pressure [facility] Diastolic blood 2020-05-24 22:55:00 81 mm[Hg] Unive rsity of pressure [facility] Heart rate 2020-05-24 22:55:00 64 /min Universi ty of [facility] Body temperature 2020-05-24 22:55:00 36.61 Jasmin Univ ersity of [facility] Body height 2020-05-24 22:55:00 180.3 cm Universi ty of [facility] Body weight 2020-05-24 22:55:00 124.286 kg Universi ty of [facility] BMI 2020-05-24 22:55:00 38.22 kg/m2 Universi ty of [facility] Systolic blood 2020-05-18 10:00:00 122 mm[Hg] Univer sity of pressure [facility] Diastolic blood 2020-05-18 10:00:00 75 mm[Hg] Unive rsity of [facility] Heart rate 2020-05-18 10:00:00 66 /min Universi ty of [facility] Respiratory rate 2020-05-18 10:00:00 14 /min [facility] Oxygen saturation in 2020-05-18 10:00:00 99 /min University of Arterial blood by [facility] Pulse oximetry [place] Body temperature 2020-05-18 07:07:00 36.22 Jasmin Univ ersity of [facility] Body weight 2020-05-18 07:07:00 122.471 kg Universi ty of [facility] BMI 2020-05-18 07:07:00 37.66 kg/m2 Universi ty of [facility] Systolic blood 2020-05-02 20:24:00 125 mm[Hg] Univer sity of pressure [facility] Branch Diastolic blood 2020-05-02 20:24:00 89 mm[Hg] Unive rsity of pressure [facility] Heart rate 2020-05-02 20:24:00 61 /min Universi ty of [facility] Body temperature 2020-05-02 20:24:00 37 Jasmin Univ ersity of [facility] Respiratory rate 2020-05-02 20:24:00 18 /min [facility] Body weight 2020-05-02 20:24:00 125.646 kg [facility] BMI 2020-05-02 20:24:00 38.63 kg/m2 [facility] Systolic blood 2020-04-18 17:55:00 121 mm[Hg] [facility]iver [facility] Diastolic blood 2020-04-18 17:55:00 74 mm[Hg] Unive rsity of [facility] Heart rate 2020-04-18 17:55:00 78 /min [facility] Respiratory rate 2020-04-18 17:55:00 20 /min [facility] Body height 2020-04-18 17:55:00 180.3 cm [facility] Body weight 2020-04-18 17:55:00 134.174 kg [facility] BMI 2020-04-18 17:55:00 41.26 kg/m2 [facility] Systolic blood 2020-04-16 21:27:00 118 mm[Hg] [facility] Diastolic blood 2020-04-16 21:27:00 71 mm[Hg] [facility]ive rsity [facility] Heart rate 2020-04-16 21:27:00 80 /min [facility] Body temperature 2020-04-16 21:27:00 36.33 Jasmin [facility] Respiratory rate 2020-04-16 21:27:00 16 /min [facility] Body height 2020-04-16 21:27:00 180.3 cm [facility] Body weight 2020-04-16 21:27:00 134.99 kg [facility] BMI 2020-04-16 21:27:00 41.51 kg/m2 [facility] Systolic blood 2020-04-12 21:38:00 123 mm[Hg] [facility] Diastolic blood 2020-04-12 21:38:00 80 mm[Hg] [facility]ive rs[facility] Heart rate 2020-04-12 21:38:00 89 /min [facility] Body temperature 2020-04-12 21:38:00 36.83 Jasmin [facility] Respiratory rate 2020-04-12 21:38:00 18 /min [facility] Body height 2020-04-12 21:38:00 180.3 cm [facility] Body weight 2020-04-12 21:38:00 135.081 kg [facility] BMI 2020-04-12 21:38:00 41.53 kg/m2 [facility] Systolic blood 2020-03-29 21:46:00 95 mm[Hg] [facility] Diastolic blood 2020-03-29 21:46:00 55 mm[Hg] Unive rsity [facility] Heart rate 2020-03-29 21:46:00 83 /min [facility] [place] [facility] Body temperature 2020-03-29 21:46:00 36.94 Jasmin Univ ersity of [facility] Respiratory rate 2020-03-29 21:46:00 18 /min Univ ersity of [facility] Body height 2020-03-29 21:46:00 180.3 cm [facility] Body weight 2020-03-29 21:46:00 134.265 kg [facility] BMI 2020-03-29 21:46:00 41.28 kg/m2 [facility] Systolic blood 2020-03-21 21:28:00 105 mm[Hg] [facility]iver [facility] Diastolic blood 2020-03-21 21:28:00 71 mm[Hg] Unive rsity [facility] Heart rate 2020-03-21 21:28:00 83 /min [facility] Body temperature 2020-03-21 21:28:00 36.67 Jasmin [facility] [place] [facility] Respiratory rate 2020-03-21 21:28:00 16 /min Univ ersity of [facility] Body height 2020-03-21 21:28:00 180.3 cm [facility] Body weight 2020-03-21 21:28:00 133.085 kg [facility] BMI 2020-03-21 21:28:00 40.92 kg/m2 [facility] Systolic blood 2020-03-14 18:01:00 112 mm[Hg] [facility] Diastolic blood 2020-03-14 18:01:00 71 mm[Hg] Unive rsity [facility] Heart rate 2020-03-14 18:01:00 73 /min [facility] Body temperature 2020-03-14 18:01:00 36.5 Jasmin [facility] [place] [facility] Respiratory rate 2020-03-14 18:01:00 18 /min [facility] [place] [facility] Body height 2020-03-14 18:01:00 180.3 cm [facility] Body weight 2020-03-14 18:01:00 132.904 kg [facility] BMI 2020-03-14 18:01:00 40.87 kg/m2 [facility] Systolic blood 2020-02-14 16:18:00 110 mm[Hg] [facility]iver [facility] Diastolic blood 2020-02-14 16:18:00 73 mm[Hg] Unive rsity of [facility] Heart rate 2020-02-14 16:18:00 79 /min [facility] Body temperature 2020-02-14 16:18:00 36.94 Jasmin [facility] [place] [facility] Respiratory rate 2020-02-14 16:18:00 18 /min [facility] Body height 2020-02-14 16:18:00 175.3 cm [facility] Body weight 2020-02-14 16:18:00 128.822 kg [facility] BMI 2020-02-14 16:18:00 41.94 kg/m2 [facility] Systolic blood 2019-12-06 16:20:00 126 mm[Hg] [facility] Diastolic blood 2019-12-06 16:20:00 80 mm[Hg] Unive rsity of [facility] Heart rate 2019-12-06 16:20:00 99 /min [facility] Body temperature 2019-12-06 16:20:00 37.17 Jasmin [facility] [place] [facility] Respiratory rate 2019-12-06 16:20:00 18 /min [facility] Body height 2019-12-06 16:20:00 180.3 cm [facility] [place] [facility] [place] Body weight 2019-12-06 16:20:00 124.286 kg [facility] [place] [facility] BMI 2019-12-06 16:20:00 38.22 kg/m2 Universi ty of [facility] Systolic blood 2019-11-28 23:20:00 136 mm[Hg] Univer sity of pressure [facility] Diastolic blood 2019-11-28 23:20:00 76 mm[Hg] Unive rsity of pressure [facility] Heart rate 2019-11-28 23:20:00 81 /min Universi ty of [facility] Respiratory rate 2019-11-28 23:20:00 18 /min Univ ersity of [facility] Oxygen saturation in 2019-11-28 23:20:00 95 /min [facility] Arterial blood by [facility] Pulse oximetry Branch Body temperature 2019-11-28 20:43:00 37.28 Jasmin Univ ersity of [facility] Body height 2019-11-28 20:43:00 180.3 cm Universi ty of [facility] Body weight 2019-11-28 20:43:00 122.471 kg Universi ty of [facility] BMI 2019-11-28 20:43:00 37.66 kg/m2 Universi ty of [facility] Systolic blood 2019-11-03 14:20:00 134 mm[Hg] Univer sity of pressure [facility] Diastolic blood 2019-11-03 14:20:00 82 mm[Hg] Unive rsity of pressure [facility] Heart rate 2019-11-03 14:20:00 92 /min Universi ty of [facility] Body temperature 2019-11-03 14:20:00 36.67 Jasmin Univ ersity of [facility] Respiratory rate 2019-11-03 14:20:00 16 /min Univ ersity of [facility] Body height 2019-11-03 14:20:00 180.3 cm Universi ty of [facility] Body weight 2019-11-03 14:20:00 125.363 kg Universi ty of [facility] Branch BMI 2019-11-03 14:20:00 38.55 kg/m2 Universi ty of [facility] Procedures Procedure Date / Time Performing Clinician Source Performed FL TIME OR 2020-07-18 20:03:05 Belén Crespo [facility] (NON-REPORTABLE) Medical Branch LAPAROSCOPIC 2020-07-18 17:51:00 Belén Crespo [facility] CHOLECYSTECTOMY Medical Branch US ABDOMEN LIMITED 2020-07-18 13:22:57 Belén Crespo [facility] COVID-19 (ID NOW RAPID 2020-07-18 12:13:00 Roshan [facility] TESTING) Medical Branch CT ABDOMEN PELVIS W 2020-07-18 11:51:38 Singer [facility] CONTRAST [facility] Branch POCT TEST 2020-07-18 11:36:00 Singer [facility] LIPASE 2020-07-18 11:26:00 Singer [facility] BILI UNCONJUGATED/BILI 2020-07-18 11:26:00 Singer Roshan [facility] CONJUG [facility] COMP. METABOLIC PANEL 2020-07-18 11:26:00 Roshan [facility] ([id number]) Medical Branch CBC WITH DIFF 2020-07-18 11:26:00 Singer [facility] URINALYSIS 2020-07-18 11:26:00 [facility] CONSENT/REFUSAL FOR 2020-07-18 11:10:36 Doctor Unassrichie, [facility] DIAGNOSIS AND TREATMENT [place] [facility] CT ABDOMEN PELVIS W 2020-07-10 07:05:[address] [facility] CONTRAST Medical Branch LIPASE 2020-07-10 06:16:00 Matthias Bedolla [facility] COMP. METABOLIC PANEL 2020-07-10 06:16:00 Matthias Bedolla [facility] ([id number]) Medical Branch CBC WITH DIFF 2020-07-10 06:16:00 Matthias Bedolla [facility] URINALYSIS 2020-07-10 06:16:00 Matthias Bedolla [facility] POCT TEST 2020-07-10 06:00:00 Matthias Bedolla [facility] NOTICE OF PRIVACY 2020-07-10 05:38:40 Doctor Unassrichie, [facility] [place] [facility] CONSENT/REFUSAL FOR 2020-07-10 05:38:26 Doctor Unassigned, [facility] DIAGNOSIS AND TREATMENT [place] [facility] NOTICE OF PRIVACY 2020-06-08 03:37:21 Doctor Unassigned, [facility] [place] [facility] CONSENT/REFUSAL FOR 2020-06-08 03:37:05 Doctor Unassrichie [facility] DIAGNOSIS AND TREATMENT [place] [facility] CONSENT/REFUSAL FOR 2020-06-08 03:37:02 Doctor Unassrichie, [facility] DIAGNOSIS AND TREATMENT [place] [facility] [place] POCT TEST 2020-05-24 00:00:00 Ladonna Leyva [facility] CT CHEST PULMONARY 2020-05-18 08:55:26 Ekta Morse [facility] ANGIOGRAM Medical Branch LIPASE 2020-05-18 07:51:00 Ekta Morse [facility] TROPONIN I 2020-05-18 07:51:00 Ekta Morse [facility] HEPATIC FUNCTION PANEL 2020-05-18 07:51:00 Ekta Morse [facility] ([id number]) ([facility],BU/BC,ALT,AST,ALK PHOS) BASIC METABOLIC PANEL (NA, 2020-05-18 07:51:00 Ekta Morse [facility] K, CL, CO2, GLUCOSE, BUN, Medica l Branch CREATININE, CA) CBC WITH DIFF 2020-05-18 07:51:00 Ekta Morse [facility] NOTICE OF PRIVACY 2020-05-18 07:05:35 Doctor Unassigned, [facility] [place] [facility] CONSENT/REFUSAL FOR 2020-05-18 07:04:19 Doctor Kris [facility] DIAGNOSIS AND TREATMENT [place] [facility] [place] CONSENT/REFUSAL FOR 2020-05-18 07:04:14 Doctor Kris [facility] DIAGNOSIS AND TREATMENT [place] [facility] [place] BIOPHYSICAL PROFILE 2020-04-18 18:32:22 Rishi [facility] NON-STRESS TEST 2020-04-17 01:03:44 Ladonna Leyva [facility] POCT URINALYSIS W/O 2020-04-16 00:00:[address] [facility] SPECIFIC GRAVITY Medical Branch NON-STRESS TEST 2020-04-13 01:37:29 Ladonna Leyva [facility] NON-STRESS TEST 2020-03-29 22:00:32 Darnell [facility] NON-STRESS TEST 2020-03-21 22:08:58 Darnell Ruy [facility] NON-STRESS TEST 2020-03-21 22:06:45 Ladonna Leyva [facility] SECOND AND THIRD TRIMESTER 2020-03-09 19:49:00 [facility] 2020-03-01 19:32:00 [facility] ([id number]), 6+ 2020-02-14 17:05:03 [facility], QUAD Medical Branch TDAP VACCINE, >11 YRS, IM 2020-02-14 16:44:57 [facility] 2020-01-05 21:19:00 [facility] 2020-01-05 20:51:00 [facility] [place] SECOND AND THIRD TRIMESTER 2020-01-05 20:44:00 Ladonna Leyva U [facility] CONSENT TO CONTACT FOR 2019-12-06 16:09:25 Doctor Unassigned, Un [facility] VOLUNTARY RESEARCH [place] [facility] h URINALYSIS 2019-11-28 23:13:00 Matthias Bedolla [place] [facility] COMP. METABOLIC PANEL 2019-11-28 21:47:00 Matthias Bedolla [facility] ([id number]) Medical [place] CBC WITH DIFF 2019-11-28 21:47:00 Matthias Bedolla [facility] NOTICE OF PRIVACY 2019-11-28 20:29:30 Doctor Unassigned, [facility] [place] PRACTICES [facility] CONSENT/REFUSAL FOR 2019-11-28 20:29:18 Doctor Unassigned, Unive [facility] [place] DIAGNOSIS AND TREATMENT [facility] POCT URINALYSIS W/O 2019-11-03 14:11:00 Kelsey Wall Uni [facility] [place] SPECIFIC [facility] POCT TEST 2019-11-03 14:10:00 [facility] Start End Encounter Admission Attending Care Care Encounter Source Date/Time Date/Time Type Type Clinicians Facility Department ID 2021-02-24 Emergency [facility] [id number] Univers 08:03:59 ity of [facility] 2021-02-24 Emergency [facility] [id number] Univers 06:12:16 ity of [facility] 2021-02-23 Emergency [facility] [id number] Univers 23:13:52 ity of [facility] 2021-02-23 Emergency [facility] [id number] Univers 18:44:48 ity of [facility] 2021-02-23 Emergency [facility] [id number] Univers 14:23:18 it of [facility] 2021-04-26 2021-04-26 Laboratory Only, Ang Db Test [facility] 1.2.8 40.114 [id number] Univers 13:00:00 13:15:00 Only [facility] 350.1.13.10 [facility] 4.2.7.2.686 Kostas as ROLANDO?BLEA [phone] [address] MEDICAL OFFICE BUILDING 2021-04-26 2021-04-26 Outpatient R MATTEO [facility] [id number] Univers 13:00:00 13:00:00 [facility] 2021-04-26 2021-04-26 Outpatient R MATTEO [facility] [id number] Univers 12:50:00 12:50:00 [facility] 2020-08-13 2020-08-13 [facility] 1.2.174.681 [id number] 08:41:30 09:13:07 Visit Belén Murillo 350.1.13.10 [place] 4.2.7.2.686 Professio [phone] nal 188 [facility] 2020-08-13 2020-08-13 Office [facility] 1.2.101.646 [id number] Univers 08:41:30 09:13:07 Visit Belén Murillo 350.1.13.10 i ty of [place] [phone] Va dical nal [address] [facility] 2020-08-13 2020-08-13 Outpatient [facility] [id number] Univers 08:45:00 08:45:00 BELÉN becerril [facility] 2020-08-02 2020-08-02 Outpatient R [facility] [id number] Univers 10:00:00 10:00:00 LORE cabrera [facility] 2020-07-18 2020-07-19 Emergency Roshan West [facility] 1.2.840. 114 [id number] Univers 06:12:00 11:15:00 Michael Agarwal 350.1.13.10 ity of [place] 4.2.7.2.686 [facility] [phone] [facility] 081 [place] 2020-07-17 2020-07-17 Patient [facility] 1.2.840.114 [id number] Univers 00:00:00 00:00:00 Outreach Jonny [facility] 350.1.13.10 i ty of [facility] 4.2.7.2.686 [place] [facility] [phone] Va dical [address] 2020-07-10 2020-07-10 Emergency [facility] 1.2.444.959 [id number] Univers 00:45:00 03:37:00 Matthias Murillo 350.1.13.10 i ty of [place]2.[place].2.686 [place] [phone] [facility] 084 Branch 2020-07-10 2020-07-10 Orders Doctor SCHAEFFER 1.2.840.114 [id number] Univers 00:00:00 00:00:00 Only Unassigned, JONE 350.1.13.10 ity of [facility] 4.2.7.2.686 Kostas as [phone] [facility] 009 [place] 2020-06-21 2020-06-21 Outpatient R DARNELL [facility] [id number] Univers 13:00:00 13:00:00 RUY ity [facility] 2020-06-16 2020-06-16 Refill [facility] 1.2.008.373 [id number] Univers 00:00:00 00:00:00 Ruy Murillo 350.1.13.10 i ty of [place] 4[place].2.[place] Profess[place] [phone] Va dic[address] 2020-06-11 2020-06-11 Outpatient R [facility] [id number] Univers 13:00:00 13:00:00 ity of [facility] 2020-06-07 2020-06-07 Emergency [facility] 1.2.089.708 [id number] Univers 21:44:00 23:54:00 Marissa Murillo 350.1.13.10 i ty of [place].2.7.2.686 [place] [phone] [facility] 084 [place] 2020-05-24 2020-05-24 Routine [facility] 1.2.423.217 [id number] Univers 16:32:42 17:20:48 Ryu Murillo 350.1.13.10 ity of Visit [place] 4.2.7.2.[place] [phone] [facility] 134 [facility] 2020-05-24 2020-05-24 Outpatient R LADONNA LEYVA [facility] [id number] Univers 14:15:00 14:15:00 ity [facility] 2020-05-22 2020-05-22 Outpatient R SANDRA [facility] [id number] Univers 16:30:00 16:30:00 JOSHUA iteaston [facility] 2020-05-18 2020-05-18 Emergency [facility] 1.2.840.114 [id number] Univers 01:25:00 04:52:00 Ekta Murillo 350.1.13.10 ity of [place] 4.2.7.2.686 [place] [phone] [facility] 084 [place] 2020-05-15 2020-05-15 Outpatient R DARNELL [facility] [id number] Univers 11:00:00 11:00:00 RUY ity [facility] 2020-05-02 2020-05-02 Nurse Nurse, [facility] 1.2.840.114 [id number] Univers 14:01:32 14:32:49 Visit Gumaro Ladonna Moris Murillo 350.1.13.10 ity of [place] 4.2.7.2.686 [place] [facility] [phone] Va dical replaced by [facility] 134 [facility] 2020-05-02 2020-05-02 Outpatient R [facility] [id number] Univers 14:00:00 14:00:00 ity of [facility] 2020-04-30 2020-04-30 Outpatient R [facility] [id number] Univers 10:00:00 10:00:00 ity of [facility] 2020-04-26 2020-04-26 Outpatient R [facility] [id number] Univers 14:00:00 14:00:00 ity [facility] 2020-04-23 2020-04-23 Outpatient P NORAH ZAMUDIO [facility] ZECHARIAH [id number] Univers 05:13:00 05:13:00 [facility] 2020-04-18 2020-04-18 Outpatient R [facility] [id number] Univers 14:00:00 14:00:00 ity [facility] 2020-04-18 2020-04-18 Initial Rishi Singh [facility] 1.2.840.114 [id number] Univers 11:38:03 13:17:26 Sona Figueredo Y HEALTH 350.1 .13.10 ity of Visit CLINICS 4.2.7.2.[place] [id number] [facility] 095 Branch 2020-04-16 2020-04-16 Routine Room, [facility] 1.2.840.1 14 [id number] Univers 15:00:45 17:11:56 Ladonna Leyva 350.1.13.10 ity of Visit [place] 4.2.7.2.686 [place] [phone] Va dical nal [address] [place] [address] 2020-04-16 2020-04-16 Outpatient R LADONNA LEYVA [facility] [id number] Univers 15:00:00 15:00:00 ity [facility] 2020-04-16 2020-04-16 Telephone Singh, [facility] 1..840.114 [id number] Univers 00:00:00 00:00:00 [facility] 350.1.13.10 i ty of CLINICS 4.2.7.2.[place] [phone] [address] 2020-04-13 2020-04-13 Charge Account Clerk Ultrasound, [facility] 1. .840.114 [id number] Univers 13:25:43 13:55:43 Visit HernandezAmada ames Lidia 350.1.13.10 ity of [place] 4.2.7.2.[place] [phone] Va dical nal [address] [place] [address] 2020-04-13 2020-04-13 Outpatient P AMADA HERNANDEZ [facility] [id number] Univers 13:30:00 13:30:00 [facility] 2020-04-12 2020-04-12 Routine Room, [facility] 1.2.840.1 14 [id number] Univers 14:59:15 16:52:34 Ladonna Leyva 350.1.13.10 ity of Visit [place] 4.2.7.2.[place] [phone] Va dical nal [address] [place] [address] 2020-04-12 2020-04-12 Outpatient R [facility] [id number] Univers 15:00:00 15:00:00 ity of [facility] 2020-04-09 2020-04-09 Outpatient R [facility] [id number] Univers 15:00:00 15:00:00 ity [facility] 2020-04-04 2020-04-04 Charge Account Clerk Ultrasound, [facility] 1.2 .840.114 [id number] Univers 09:54:38 10:24:38 Visit Amada Hernandez [employer] 350.1.13.10 ity of [facility] 4.2.7.2.686 Kostas [address] MATER[address] [phone] [facility] ical & CHILD [address] [place] [address] 2020-04-04 2020-04-04 Outpatient P [facility] [id number] Univers 10:00:00 10:00:00 ity of [facility] 2020-03-30 2020-03-30 Charge Account Clerk Ultrasound, [facility] 1.2 .840.114 [id number] Univers 14:26:00 14:56:00 Visit Norah Zamudio [place] 350.1.13.10 ity [facility] 4.2.7.2.[place] [phone] Va dical nal [address] [place] [address] 2020-03-30 2020-03-30 Outpatient R [facility] [id number] Univers 14:30:00 14:30:00 ity of [facility] 2020-03-29 2020-03-29 Routine Room, [facility] 1.2.840.1 14 [id number] Univers 14:58:43 16:00:14 Ladonna Leyva Moris [place] 350.1.13.10 ity of Visit [place] 4.2.7.2.[place] Profess[place] [phone] Va dic[address] 2020-03-29 2020-03-29 Outpatient R [facility] [id number] Univers 15:00:00 15:00:00 ity of [facility] 2020-03-28 2020-03-28 Case Ladonna Leyva [facility] 1.2.977.233 [id number] Univers 00:00:00 00:00:00 Management Moris [place] 350.1.13.10 ity of [place] 4.2.7.2.[place] [phone] Va dical nal [address] [place] [address] 2020-03-26 2020-03-26 Charge Account Clerk Ultrasound, [facility] 1.2 .840.114 [id number] Univers 15:09:46 15:33:40 Visit Mayra Pinto [employer] 350.1. 13.10 ity of [facility] 4.2.7.2.686 Kostas as MATERNAL [phone] Med ical & CHILD [address] [place] [address] 2020-03-26 2020-03-26 Outpatient P [facility] [id number] Univers 14:45:00 14:45:00 ity of [facility] 2020-03-21 2020-03-21 Routine Room, [facility] 1.2.840.1 14 [id number] Univers 15:01:47 15:56:49 Ladonna Leyva [place] 350.1.13.10 ity of Visit [place] 4.2.7.2.[place] [phone] [address] 2020-03-21 2020-03-21 Outpatient R [facility] [id number] Univers 15:00:00 15:00:00 ity of [facility] 2020-03-19 2020-03-19 Outpatient R [facility] [id number] Univers 15:00:00 15:00:00 ity of [facility] 2020-03-19 2020-03-19 [facility] [id number] Univers 00:00:00 00:00:00 [facility] 2020-03-15 2020-03-15 Outpatient R [facility] [id number] Univers 15:00:00 15:00:00 ity of [facility] 2020-03-14 2020-03-14 Routine Room, [facility] 1.2.840.1 14 [id number] Univers 11:24:52 12:51:24 Ladonna Leyva [place] 350.1.13.10 ity of Visit [place] 4.2.7.2.686 [place] Profess[place] [phone] [address] 2020-03-14 2020-03-14 Outpatient R LADONNA LEYVA [facility] [id number] Univers 11:15:00 11:15:00 ity of [facility] 2020-03-14 2020-03-14 Outpatient R [facility] [id number] Univers 11:00:00 11:00:00 ity of [facility] 2020-03-14 2020-03-14 Letter Darnell [facility] 1.2.831.759 [id number] Univers 00:00:00 00:00:00 (Out) Ruy Murillo 350.1.13.10 i ty of [place] 4.2.[place].2.[place] [phone] [facility] 134 [facility] 2020-03-13 2020-03-13 Outpatient R [facility] [id number] Univers 15:00:00 15:00:00 ity [facility] 2020-03-09 2020-03-09 Charge Account Clerk 5, [facility] Us Room [facility] 1 .2.840.114 [id number] Univers 13:26:10 14:23:27 Visit Amada Hernandez [facility] 350.1.13.10 ity of [facility] 4.2.7.2.686 [place] [phone] [address] 2020-03-09 2020-03-09 Outpatient P [facility] [id number] Univers 13:00:00 13:00:00 ity [facility] 2020-03-09 2020-03-09 Telephone Gumaro [facility] 1..840.114 [id number] Univers 00:00:00 00:00:00 Moris Murillo 350.1.13.10 i ty of [place] 4[place]2.7.2.[place] [phone] [facility] 134 [facility] 2020-03-02 2020-03-02 Charge Account Clerk 2, [facility] 1.2.840.114 [id number] Univers 10:17:56 10:32:56 Visit Ladonna Leyva 350.1.13.10 ity of [place] 4.2.7.2.[place] [phone] [facility] 353 [facility] 2020-03-02 2020-03-02 Outpatient R LADONNA LEYVA [facility] [id number] Univers 10:15:00 10:15:00 ity [facility] 2020-03-01 2020-03-01 Charge Account Clerk 3, [facility] Usg Room [facility] 1 .2.840.114 [id number] Univers 12:58:02 13:44:17 Visit Allen Martinez 350.1.13.10 ity of CLINICS 4.2.7.2.[place] [phone] [address] 2020-03-01 2020-03-01 Outpatient P [facility] [id number] Univers 13:00:00 13:00:00 ity of [facility] 2020-02-20 2020-02-20 Outpatient R [facility] [id number] Univers 11:30:00 11:30:00 ity of [facility] 2020-02-14 2020-02-14 Routine Leyva [facility] 1.2.980.878 [id number] Univers 11:08:11 12:13:04 Moris Murillo 350.1.13.10 ity of Visit Miguel A 4.2.7.2.686 [place] [phone] [address] 2020-02-14 2020-02-14 Outpatient R LADONNA LEYVA [facility] [id number] Univers 11:15:00 11:15:00 ity of [facility] 2020-01-16 2020-01-16 Outpatient R DARNELL, [facility] [id number] Univers 08:00:00 08:00:00 [facility] 2020-01-09 2020-01-09 [facility] [id number] Univers 16:00:00 16:00:00 [facility] 2020-01-05 2020-01-06 Charge Account Clerk 1, [facility] Us Room [facility] 1 .2.840.114 [id number] Univers 14:15:37 08:27:56 Visit Gurmeet Hall [facility] 350.1.13.10 ity of CL[place] 4.2.7.2.[place] [phone] [address] 2020-01-05 2020-01-05 Outpatient P [facility] [id number] Univers 14:15:00 14:15:00 ity [facility] 2020-01-04 2020-01-05 Office 2, [facility] Genetic Consults [facility]ERS [facility] 1.2.840.114 [id number] Univers 12:14:02 09:23:22 Visit Matthew Alcantar [facility] 350.1.13.10 ity of CLINICS 4.2.7.2.[place] [id number] [facility] [address] [place] 2020-01-04 2020-01-04 Outpatient P [facility] [id number] Univers 13:00:00 13:00:00 ity of [facility] 2020-01-03 2020-01-03 Charge Account Clerk Ultrasound, Adalid-Mforestes [facility] 1.2 .840.114 [id number] Univers 08:15:39 09:15:39 Visit Contreras Mayra Swanson [employer] 350.1. 13.10 ity of [facility] 4.2.7.2.686 Kostas as MATERNAL [phone] Med ical & CHILD [address] [place] [address] 2020-01-03 2020-01-03 Outpatient R [facility] [id number] Univers 08:00:00 08:00:00 ity of [facility] 2019-12-12 2019-12-12 Outpatient R [facility] [id number] Univers 11:00:00 11:00:00 ity of [facility] 2019-12-06 2019-12-06 Initial Ladonna Leyva [facility] 1.2.236.819 [id number] Univers 11:08:00 12:04:06 Cam Lidia 350.1.13.10 ity of Visit [place] 4.2.7.2.[place] Profess[place] [phone] [place] dic[address] 2019-12-06 2019-12-06 Outpatient R LADONNA LEYVA [facility] [id number] Univers 11:00:00 11:00:00 ity of [facility] 2019-12-06 2019-12-06 Orders Doctor LAURY 1.2.840.114 [id number] Univers 00:00:00 00:00:00 Only Unassigned, JONE 350.1.13.10 ity of [place] [facility] 4.2.7.2.686 Kostas as [phone] [facility] 009 [place] 2019-11-28 2019-11-28 Emergency Светлана [facility] 1.2.513.738 [id number] Univers 16:03:00 19:22:00 Matthias Murillo 350.1.13.10 i ty of [place] 4.2.7.2.686 [place] [phone] [facility] 084 [place] 2019-11-28 2019-11-28 Orders Doctor LAURY 1.2.840.114 [id number] Univers 00:00:00 00:00:00 Only Unassigned, JONE 350.1.13.10 ity of [place] [facility] 4.2.7.2.686 Kostas as [phone] [facility] 009 [place] 2019-11-22 2019-11-22 Abstract Akinsipe, [facility] 1.2.840.114 [id number] Univers 00:00:00 00:00:00 Kelsey Jewell [employer] 350.1.13.10 ity of [facility] 4.2.7.2.686 Kostas as MATERNAL [phone] Med ical & CHILD 107 [facility] 2019-11-22 2019-11-22 Telephone Pob1, Acute [facility] 1.2.840.114 [id number] Univers 00:00:00 00:00:00 [facility] 350.1.13.10 ity of [place] 4.2.7.2.686 Kostas as Professio [phone] Va dical nal [address] [place] [address] 2019-11-18 2019-11-18 Laboratory Lab, Adc Fam Pob I [facility] 1.2. 840.114 [id number] Univers 10:40:23 11:00:23 Only Hernandez [facility] 350.1.13.10 ity of [place] 4.2.7.2.686 Kostas as Professio [phone] Va dical nal [address] [place] [address] 2019-11-18 2019-11-18 Charge Account Clerk Ultrasound, Ang-M[facility] 1.2 .840.114 [id number] Univers 10:00:28 10:24:10 Visit Amada Hernandez [employer] 350.1.13.10 ity of [facility] 4.2.7.2.686 [place]ost[place] as MATERNAL [phone] [facility] ical & CHILD 369 [facility] 2019-11-18 2019-11-18 Outpatient P [facility] [id number] Univers 10:00:00 10:00:00 ity of [facility] 2019-11-10 2019-11-10 Outpatient P [facility] [id number] Univers 14:45:00 14:45:00 ity [facility] 2019-11-07 2019-11-07 Telephone [facility] 1.2.840.114 [id number] Univers 00:00:00 00:00:00 Kelsey C [employer] 350.1.13.10 ity of REGIONAL 4.2.7.2.686 [place] [address] MATERNAL [phone] [facility] ical & CHILD [address] [place] [address] 2019-11-03 2019-11-03 Initial [facility] 1.2.235.282 [id number] Univers 09:02:46 10:40:27 Kelsey C [employer] 350.1.13.10 ity of Visit REGIONAL 4.2.7.2.686 Kostas as MATERNAL [phone] [facility] & CHILD [address] [place] [address] 2019-11-03 2019-11-03 Outpatient [facility] [id number] Univers 08:30:00 08:30:00 KELSEY ity o f [facility] 2018-01-27 2018-01-27 Outpatient [id number] Common 16:01:00 16:01:00 [facility] 2018-01-26 2018-01-26 Outpatient [facility] [id number] Common 13:20:00 13:20:00 [facility] 2017-11-18 2017-11-18 Outpatient [facility] [id number] Common 15:15:00 15:15:00 [facility] Results Test Test Test Results Result Source Description Time Comments Comments FL TIME OR 2020-06- These images do not require University of (NON-REPORTABLE 24 a Radiology diagnostic [facility] ) 20:04:28 report. Branch US ABDOMEN 2020-06- Cholelithiasis without U niversity of LIMITED 24 sonographic evidence for [facility] 13:51:23 acute cholecystitis. Mild Branch hepatic steatosis. [...] Comme nts BILI CONJ (test code = 7660952671) 0.0 mg/dL 0.0-0.3 BILI UNCON (test code = 8944986194) 0.6 mg/dL 0.1-1.1 Lab Interpretation (test code = 52921-2) Normal [facility] NOW [facility]APID TESTING)2020-07-18 13:20:12 Test Item Value Reference Range Interpretation Comments SARS-CoV-2 Rapid ID NOW Not Detected Not Detected (test code = 71377-8) TRISTON (test code = TRISTON) ID NOW COVID-19 Assay is an isothermal nucleic acid amplification test intended for the qualitative detection of nucleic acid from SARS-CoV-2 viral RNA in nasopharyngeal (FINANCIAL AUDITOR) specimens. It is used under Emergency Use [...] indicated. Lab Interpretation Normal (test code = 32063-8) [facility] 12:30:58 Test Item Value Reference Range Interpretation Comments APPEARANCE (test code = Clear Clear 6250704958) COLOR (test code = Yellow Yellow 0543782027) PH (test code = 4.8-8.0 8512813702) SP GRAVITY (test code = 1.003-1.030 3276970811) GLU U QUAL (test code = Normal Normal 6158890694) BLOOD (test code = Negative Negative 4223087287) KETONES (test code = Negative Negative 7787581509) PROTEIN (test code = Negative Negative 2887-8) UROBILIN (test code = Normal Normal 7395993117) BILIRUBIN (test code = Negative Negative 5429167541) NITRITE (test code = Negative Negative 3647729289) LEUK VAHID (test code = 250/uL Negative A 0776002802) RBC/HPF (test code = See_Comment H [Autom ated message] 9109697294) The system [employer] generated this result transmitted ref erence range: 0 - 3 HP F. The reference range was not used to int erpret this result as normal/abnormal . WBC/HPF (test code = See_Comment H [Autom ated message] 4304196801) The system [employer] generated this result transmitted ref erence range: 0 - 5 HP F. The reference range was not used to int erpret this result as normal/abnormal . BACTERIA (test code = Few Negative A 9733863116) SQ EPITH (test code = HPF 9324185838) Lab Interpretation (test Abnormal code = 97334-2) [facility] (56302)2020-07-18 12:30:33 Test Item Value Reference Range Interpretation Comments NA (test code = 140 mmol/L 135-145 4024904417) K (test code = 4.2 mmol/L 3.5-5.0 8091441001) CL (test code = 108 mmol/L 98-108 2373147362) CO2 TOTAL (test code = 24 mmol/L 23-31 8272108853) AGAP (test code = 2-16 2333853984) BUN (test code = 13 mg/dL 7-23 0510639044) GLUCOSE (test code = 101 mg/dL 70-110 2600215887) CREATININE (test code = 0.47 mg/dL 0.50-1.04 L 3312734470) TOTAL BILI (test code = 0.8 mg/dL 0.1-1.9 0850737854) CALCIUM (test code = 8.7 mg/dL 8.6-10.6 1718790828) T PROTEIN (test code = 7.2 g/dL 6.3-8.2 7987304503) ALBUMIN (test code = 4.4 g/dL 3.5-5.0 7694453282) ALK PHOS (test code = 169 U/L 34-122 H 2297317119) ALTv (test code = 79 U/L 5-35 H 1742-6) AST(SGOT) (test code = 37 U/L 13-40 2810681835) eGFR Calculation mL/min/1.73m2 (Non-) (test code = 3169620598) eGFR Calculation mL/min/1.73m2 () (test code = 7718266780) TRISTON (test code = TRISTON) Association of [...] tests). Lab Interpretation Abnormal (test code = 75424-8) [facility] Test Item Value Reference Range Interpretation Comments LIPASE (test code = 4033021324) 127 U/L 0-220 Lab Interpretation (test code = Normal 71998-0) [facility] WITH [id number] 11:56:46 Test Item Value Reference Range Interpretation Comments WBC (test code = See_Comment [Automated 6490-2) message] The sy stem which generated this result transmitted reference range : 4.30 - 11.10 10*3/?L. The reference range was not used to interpret this result as normal/abnormal . RBC (test code = See_Comment [Automated 269-8) message] The sy stem which generated this [...] RDW-SD (test code = 42.2 fL 39.0-49.9 88489-5) RDW-CV (test code = 12.6 % 12.0-15.5 788-0) PLT (test code = See_Comment [Automated 777-3) message] The sy stem which generated this result transmitted reference range : 166 - 358 10*3/ ?L. The reference r dejuan was not used to interpret this result as normal/abnormal . MPV (test code = 11.0 fL 9.5-12.9 64358-7) NRBC/100 WBC (test See_Comment [Automat ed code = 4958786163) message] The system which generated this result transmitted reference range : 0.0 - 10.0 /100 WBCs. The refer ence range was not u sed to interpret th is result as normal/abnormal . NRBC x10^3 (test code <0.01 See_Comment [Auto mated = 2074993074) message] The s ystem which generated this result transmitted reference range : 10*3/?L. The reference range was not used to interpret this result as normal/abnormal . GRAN MAT (NEUT) % 73.4 % (test code = 770-8) IMM GRAN % (test code 0.40 % = 1826419589) LYMPH % (test code = 19.4 % 736-9) MONO % (test code = 4.8 % 5905-5) EOS % (test code = 1.5 % 713-8) BASO % (test code = 0.5 % 706-2) GRAN MAT x10^3(ANC) 8.01 10*3/uL 1.88-7.09 H (test code = 3650948835) IMM GRAN x10^3 (test 0.04 10*3/uL 0.00-0.06 code = 0240779789) LYMPH x10^3 (test code 2.12 10*3/uL 1.32-3.29 = 731-0) MONO x10^3 (test code 0.52 10*3/uL 0.33-0.92 = 742-7) EOS x10^3 (test code = 0.16 10*3/uL 0.03-0.39 711-2) BASO x10^3 (test code 0.05 10*3/uL 0.01-0.07 = 704-7) Lab Interpretation Abnormal (test code = 57578-2) [facility] [id number] 11:36:00 Test Item Value Reference Range Interpretation Comments POCT PREG (test code = 1605) Negative On board controls acceptable with Present C Line (test code = 3574) POCT PREG LOT # (test code = HCG [id number]) POCT PREG TEST DATE (test 12/25/2021 code = 3576) Lab Interpretation (test code = Normal 32928-7) [facility] [id number] 08:04:39 No acute process identified in the abdomen or pelvis. Cholelithiasis without CT evidence for acute cholecystitis. RL: 460 AFC: [id number] Ordering physician: MATTHIAS BEDOLLA Indication: Acute abdominal pain COMPARISON: None TECHNIQUE: A xial images of the abdomen and pelvis are performed followingadministration of intravenous contrast material. Images were reformatted inthe coronal and sagittal plane. CT scan was performed according to ALARA(as low as reasonably achievable) policy. FINDINGS: The lung bases are clear. There is cholelithiasis withoutadjacent inflammatory change to suggest acute cholecystitis. The liver,spleen, adrenalglands and pancreas are within normal limits. The [...] - 07/10/2020 3:05 AM CDTOrdering physician: MATTHIAS KOWALSKIndication: Acute abdominal painCOMPARISON: NoneTECHNIQUE: Axial images of the abdomen and pelvis are performed followingadministration of intravenous contrast material. Images were reformatted inthe coronal and sagittal plane. CT scan was performed according to ALARA(as low as [...] the abdomen and pelvis demonstrate no osseousdestructive lesion.IMPRESSIONNo acute process identified in the abdomen or pelvis.Cholelithiasis without CT evidence for acute cholecystitis.RL: 460AF: 74436 [facility] 06:46:26 Test Item Value Reference Range Interpretation Comments APPEARANCE (test code = Cloudy Clear A 5198584463) COLOR (test code = Yellow Yellow 0945000956) PH (test code = 4.8-8.0 0927818523) SP GRAVITY (test code = 1.003-1.030 0365703522) GLU U QUAL (test code = Normal Normal 0863861354) BLOOD (test code = Negative Negative 0713084470) KETONES (test code = Negative Negative 8237895325) PROTEIN (test code = Negative Negative 2887-8) UROBILIN (test code = Normal Normal 8143619493) BILIRUBIN (test code = Negative Negative 3019833338) NITRITE (test code = Negative Negative 1848804406) LEUK VAHID (test code = 25/uL Negative A 4888022320) RBC/HPF (test code = See_Comment [Autom ated message] 8290407382) The system [employer] generated this result transmitted ref erence range: 0 - 3 HP F. The reference range was not used to int erpret this result as normal/abnormal . WBC/HPF (test code = See_Comment H [Autom ated message] 5715250000) The system [employer] generated this result transmitted ref erence range: 0 - 5 HP F. The reference range was not used to int erpret this result as normal/abnormal . BACTERIA (test code = Many Negative A 0392440006) MUCOUS (test code = Slight Negative LPF A 7559888785) AMORPHOUS (test code = Moderate Rare HPF A 2683428275) SQ EPITH (test code = HPF 6567402348) Lab Interpretation (test Abnormal code = 87756-5) [facility] (44649)2020-07-10 06:33:53 Test Item Value Reference Range Interpretation Comments NA (test code = 139 mmol/L 135-145 9113092345) K (test code = 3.7 mmol/L 3.5-5.0 0236305346) CL (test code = 102 mmol/L 98-108 0073637463) CO2 TOTAL (test code = 29 mmol/L 23-31 5328925306) AGAP (test code = 2-16 9100793768) BUN (test code = 12 mg/dL 7-23 5249060387) GLUCOSE (test code = 118 mg/dL 70-110 H 1522614941) CREATININE (test code = 0.67 mg/dL 0.50-1.04 4695997107) TOTAL BILI (test code = 0.6 mg/dL 0.1-1.1 9556497264) CALCIUM (test code = 9.2 mg/dL 8.6-10.6 8999767612) T PROTEIN (test code = 7.2 g/dL 6.3-8.2 1684678602) ALBUMIN (test code = 4.6 g/dL 3.5-5.0 1317625648) ALK PHOS (test code = 168 U/L 34-122 H 9860709420) ALTv (test code = 111 U/L 5-35 H 1742-6) AST(SGOT) (test code = 30 U/L 13-40 9544454282) eGFR Calculation mL/min/1.73m2 (Non-) (test code = 7365110762) eGFR Calculation mL/min/1.73m2 () (test code = 1115108891) TRISTON (test code = TRISTON) Association of [...] tests). Lab Interpretation Abnormal (test code = 81302-2) [facility] 06:33:18 Test Item Value Reference Range Interpretation Comments LIPASE (test code = 3357697275) 85 U/L 0-220 Lab Interpretation (test code = Normal 06794-0) [facility] WITH [id number] 06:24:16 Test Item Value Reference Range Interpretation Comments WBC (test code = See_Comment H [Automated 2194-2) message] The sy stem which generated this [...] RDW-SD (test code = 43.1 fL 39.0-49.9 81519-9) RDW-CV (test code = 12.6 % 12.0-15.5 788-0) PLT (test code = See_Comment [Automated 777-3) message] The sy stem which generated this result transmitted reference range : 166 - 358 10*3/ ?L. The reference r dejuan was not used to interpret this result as normal/abnormal . MPV (test code = 10.1 fL 9.5-12.9 21523-8) NRBC/100 WBC (test See_Comment [Automat ed code = 3279653436) message] The system which generated this result transmitted reference range : 0.0 - 10.0 /100 WBCs. The refer ence range was not u sed to interpret th is result as normal/abnormal . NRBC x10^3 (test code <0.01 See_Comment [Auto mated = 6301030284) message] The s ystem which generated this result transmitted reference range : 10*3/?L. The reference range was not used to interpret this result as normal/abnormal . GRAN MAT (NEUT) % 83.3 % (test code = 770-8) IMM GRAN % (test code 0.30 % = 4307803487) LYMPH % (test code = 12.4 % 736-9) MONO % (test code = 2.8 % 5905-5) EOS % (test code = 0.8 % 713-8) BASO % (test code = 0.4 % 706-2) GRAN MAT x10^3(ANC) 9.80 10*3/uL 1.88-7.09 H (test code = 9160344248) IMM GRAN x10^3 (test 0.04 10*3/uL 0.00-0.06 code = 2833765642) LYMPH x10^3 (test code 1.46 10*3/uL 1.32-3.29 = 731-0) MONO x10^3 (test code 0.33 10*3/uL 0.33-0.92 = 742-7) EOS x10^3 (test code = 0.09 10*3/uL 0.03-0.39 711-2) BASO x10^3 (test code 0.05 10*3/uL 0.01-0.07 = 704-7) Lab Interpretation Abnormal (test code = 32322-3) [facility] [id number] 06:00:00 Test Item Value Reference Range Interpretation Comments POCT PREG (test code = 1605) negative On board controls acceptable with present C Line (test code = 3574) POCT PREG LOT # (test code = 3575) [id number] POCT PREG TEST DATE (test 2022-02-24 code = 3576) Lab Interpretation (test code = Normal 89878-1) [facility] [id number] 22:58:00 Test Item Value Reference Range Interpretation Comments POCT PREG (test code = 1605) Negative On board controls acceptable with C Yes Line (test code = 3574) POCT PREG LOT # (test code = 3575) POCT PREG TEST DATE (test code = 3576) Lab Interpretation (test code = Normal 60954-4) [facility] [id number] 22:58:00 Test Item Value Reference Range Interpretation Comments POCT PREG (test code = 1605) Negative On board controls acceptable with C Yes Line (test code = 3574) POCT PREG LOT # (test code = 3575) POCT PREG TEST DATE (test code = 3576) Lab Interpretation (test code = Normal 65173-4) [facility] [id number] 22:58:00 Test Item Value Reference Range Interpretation Comments POCT PREG (test code = 1605) Negative On board controls acceptable with C Yes Line (test code = 3574) POCT PREG LOT # (test code = 3575) POCT PREG TEST DATE (test code = 3576) Lab Interpretation (test code = Normal 16426-0) [facility] [id number] 22:58:00 Test Item Value Reference Range Interpretation Comments POCT PREG (test code = 1605) Negative On board controls acceptable with C Yes Line (test code = 3574) POCT PREG LOT # (test code = 3575) POCT PREG TEST DATE (test code = 3576) Lab Interpretation (test code = Normal 67759-7) [facility] (ALB, T.PRO, BILI T, BU/BC, ALT, AST, ALK PHOS)2020-05-18 08:40:00 Test Item Value Reference Range Interpretation Comments TOTAL BILI (test code = 2376973517) 0.5 mg/dL 0.1-1.1 BILI UNCON (test code = 8549331786) 0.3 mg/dL 0.1-1.1 BILI CONJ (test code = 7078923365) 0.0 mg/dL 0-0.3 T PROTEIN (test code = 1443131914) 6.9 g/dL 6.3-8.2 ALBUMIN (test code = 9376868691) 4.0 g/dL 3.5-5 ALK PHOS (test code = 5946381994) 188 U/L 34-122 H ALTv (test code = 1742-6) 228 U/L 5-35 H AST(SGOT) (test code = 6270443002) 104 U/L 13-40 H Lab Interpretation (test code = Abnormal 16962-3) [facility] (ALB, T.PRO, BILI T, BU/BC, ALT, AST, ALK PHOS)2020-05-18 08:40:00 Test Item Value Reference Range Interpretation Comments TOTAL BILI (test code = 3452912889) 0.5 mg/dL 0.1-1.1 BILI UNCON (test code = 9167107621) 0.3 mg/dL 0.1-1.1 BILI CONJ (test code = 6933213598) 0.0 mg/dL 0-0.3 T PROTEIN (test code = 3957641352) 6.9 g/dL 6.3-8.2 ALBUMIN (test code = 5573337489) 4.0 g/dL 3.5-5 ALK PHOS (test code = 9921516105) 188 U/L 34-122 H ALTv (test code = 1742-6) 228 U/L 5-35 H AST(SGOT) (test code = 9813887550) 104 U/L 13-40 H Lab Interpretation (test code = Abnormal 35880-7) [facility] (NA, K, CL, CO2, GLUCOSE, BUN, CREATININE, CA)2020-05-18 08:39:00 Test Item Value Reference Range Interpretation Comments NA (test code = 138 mmol/L 135-145 5282641045) K (test code = 3.9 mmol/L 3.5-5 9746916242) CL (test code = 105 mmol/L 98-108 7569245837) CO2 TOTAL (test code = 24 mmol/L 23-31 9516538323) AGAP (test code = 2-16 4774337463) BUN (test code = 13 mg/dL 7-23 8837277431) GLUCOSE (test code = 103 mg/dL 70-110 9893309612) CREATININE (test code 0.78 mg/dL 0.5-1.04 = 9333236933) CALCIUM (test code = 8.9 mg/dL 8.6-10.6 1199432908) eGFR Calculation mL/min/1.73m2 (Non-) (test code = 1943958455) eGFR Calculation mL/min/1.73m2 () (test code = 4308798507) TRISTON (test code = TRISTON) Association of [...] or urine or abnormalities in imaging tests). [facility] HospitalLip[facility] [id number] 08:39:00 Test Item Value Reference Range Interpretation Comments LIPASE (test code = 0647268924) 108 U/L 0-220 Lab Interpretation (test code = Normal 36482-9) [facility] HospitalTroponin [id number] 08:39:00 Test Item Value Reference Range Interpretation Comments TROPONIN I (test <0.012 See_Comment [Automated code = 2541577484) message] The system which generated this result [...] ? Lab Interpretation Normal (test code = 34101-9) [facility] (NA, K, CL, CO2, GLUCOSE, BUN, CREATININE, CA)2020-05-18 08:39:00 Test Item Value Reference Range Interpretation Comments NA (test code = 138 mmol/L 135-145 4744374885) K (test code = 3.9 mmol/L 3.5-5 4893208370) CL (test code = 105 mmol/L 98-108 5635257356) CO2 TOTAL (test code = 24 mmol/L 23-31 3554125842) AGAP (test code = 2-16 2865432124) BUN (test code = 13 mg/dL 7-23 0062374877) GLUCOSE (test code = 103 mg/dL 70-110 8574250842) CREATININE (test code 0.78 mg/dL 0.5-1.04 = 6728094488) CALCIUM (test code = 8.9 mg/dL 8.6-10.6 8809070824) eGFR Calculation mL/min/1.73m2 (Non-) (test code = 6850273993) eGFR Calculation mL/min/1.73m2 () (test code = 4551869346) TRISTON (test code = TRISTON) Association of [...] or urine or abnormalities in imaging tests). [facility] HospitalLip[facility] [id number] 08:39:00 Test Item Value Reference Range Interpretation Comments LIPASE (test code = 0209811413) 108 U/L 0-220 Lab Interpretation (test code = Normal 58655-6) [facility] HospitalTroponin [id number] 08:39:00 Test Item Value Reference Range Interpretation Comments TROPONIN I (test <0.012 See_Comment [Automated code = 6662230806) message] The system which generated this result [...] ? Lab Interpretation Normal (test code = 66740-9) [facility]CBC with [id number] 08:09:00 Test Item Value Reference Range Interpretation [...] RDW-SD (test code = 40.8 fL 39-49.9 62572-4) RDW-CV (test code = 11.9 % 12-15.5 L 788-0) PLT (test code = See_Comment [Automated 777-3) message] The sy stem which generated this result transmitted reference range : 166 - 358 10*3/ ?L. The reference r dejuan was not used to interpret this result as normal/abnormal . MPV (test code = 12.2 fL 9.5-12.9 83827-5) NRBC/100 WBC (test See_Comment [Automat ed code = 7184806939) message] The system which generated this result transmitted reference range : 0.0 - 10.0 /100 WBCs. The refer ence range was not u sed to interpret th is result as normal/abnormal . NRBC x10^3 (test code <0.01 See_Comment [Auto mated = 3117253294) message] The s ystem which generated this result transmitted reference range : 10*3/?L. The reference range was not used to interpret this result as normal/abnormal . GRAN MAT (NEUT) % 73.1 % (test code = 770-8) IMM GRAN % (test code 0.40 % = 5446726609) LYMPH % (test code = 20.3 % 736-9) MONO % (test code = 3.7 % 5905-5) EOS % (test code = 2.1 % 713-8) BASO % (test code = 0.4 % 706-2) GRAN MAT x10^3(ANC) 8.18 10*3/uL 1.88-7.09 H (test code = 8443880885) IMM GRAN x10^3 (test 0.05 10*3/uL 0-0.06 code = 7061329248) LYMPH x10^3 (test code 2.28 10*3/uL 1.32-3.29 = 731-0) MONO x10^3 (test code 0.42 10*3/uL 0.33-0.92 = 742-7) EOS x10^3 (test code = 0.23 10*3/uL 0.03-0.39 711-2) BASO x10^3 (test code 0.05 10*3/uL 0.01-0.07 = 704-7) Lab Interpretation Abnormal (test code = 14170-8) [facility] with [id number] 08:09:00 Test Item Value Reference Range Interpretation Comments WBC (test code = See_Comment H [Automated 0787-2) message] The sy stem which generated this result transmitted reference range : 4.30 - 11.10 10*3/?L. The reference range was not used to interpret this result as normal/abnormal . RBC (test code = See_Comment [Automated 294-8) message] The sy stem which generated this [...] RDW-SD (test code = 40.8 fL 39-49.9 96948-5) RDW-CV (test code = 11.9 % 12-15.5 L 788-0) PLT (test code = See_Comment [Automated 567-3) message] The sy stem which generated this result transmitted reference range : 166 - 358 10*3/ ?L. The reference r dejuan was not used to interpret this result as normal/abnormal . MPV (test code = 12.2 fL 9.5-12.9 00277-0) NRBC/100 WBC (test See_Comment [Automat ed code = 1618567146) message] The system which generated this result transmitted reference range : 0.0 - 10.0 /100 WBCs. The refer ence range was not u sed to interpret th is result as normal/abnormal . NRBC x10^3 (test code <0.01 See_Comment [Auto mated = 0854468111) message] The s ystem which generated this result transmitted reference range : 10*3/?L. The reference range was not used to interpret this result as normal/abnormal . GRAN MAT (NEUT) % 73.1 % (test code = 770-8) IMM GRAN % (test code 0.40 % = 7624554364) LYMPH % (test code = 20.3 % 736-9) MONO % (test code = 3.7 % 5905-5) EOS % (test code = 2.1 % 713-8) BASO % (test code = 0.4 % 706-2) GRAN MAT x10^3(ANC) 8.18 10*3/uL 1.88-7.09 H (test code = 1921863331) IMM GRAN x10^3 (test 0.05 10*3/uL 0-0.06 code = 6715498350) LYMPH x10^3 (test code 2.28 10*3/uL 1.32-3.29 = 731-0) MONO x10^3 (test code 0.42 10*3/uL 0.33-0.92 = 742-7) EOS x10^3 (test code = 0.23 10*3/uL 0.03-0.39 711-2) BASO x10^3 (test code 0.05 10*3/uL 0.01-0.07 = 704-7) Lab Interpretation Abnormal (test code = 18590-9) [facility]BIOP[facility] PRO[facility] WITH NON-STRESS TEST 2020-04-18 19:57:52NST: 130, moderate variability, +accels, no decelsBPP 10Toco: quiescentUnHarlingen Medical CenterPOCT URINALYSIS W/O SPECIFIC [id number] 01:12:00 Test Item Value Reference Range Interpretation [...] code = 3257) na Negative - Negative [facility] NON-STRESS [id number] 01:04:39 Reactive and reassuringToco quiescent Ladonna Leyva MD ?04/16/2020 ?7:04 PM [facility] NON-STRESS [id number] 01:37:59 Reactive and reassuringToco quiescent Ladonna Leyva MD ?04/12/2020 ?7:37 PM [facility] NON-STRESS [id number] 22:01:18 [facility] and [facility] [id number] 22:09:20NST reactive and reassuringUnGenoa [facility] Hospital NON-STRESS [id number] 22:09:20NST reactive and reassuring [facility] NON-STRESS [id number] 22:07:24 Reactive and reassuringToco quiescent Ladonna Leyva MD ?03/21/2020 ?4:[address] [facility] HospitalCONSENT TO CONTACT FOR VOLUNTARY RESEARCH 2019-12-06 16:09:25 Test Item Value Reference Range Interpretation Comments Consent To Contact For Voluntary Yes Research (test code = 4947) [facility] HospitalURIN[facility]IS2020-08-03 23:39:00 Test Item Value Reference Range Interpretation Comments APPEARANCE (test code = Hazy Clear A 9580115056) COLOR (test code = Yellow Yellow 4519859069) PH (test code = 4.8-8.0 9145316868) SP GRAVITY (test code = 1.003-1.030 2241196818) GLU U QUAL (test code = Normal Normal 0602855463) BLOOD (test code = Negative Negative 8226974965) KETONES (test code = 5 mg/dL Negative A 6710888538) PROTEIN (test code = Negative Negative 2887-8) UROBILIN (test code = Normal Normal 6964251572) BILIRUBIN (test code = Negative Negative 9360040797) NITRITE (test code = Negative Negative 6206974822) LEUK VAHID (test code = Negative Negative 3147747338) RBC/HPF (test code = See_Comment [Autom ated message] 9928958357) The system [employer] generated this result transmitted ref erence range: 0 - 3 HP F. The reference range was not used to int erpret this result as normal/abnormal . WBC/HPF (test code = See_Comment [Autom ated message] 8050224983) The system [employer] generated this result transmitted ref erence range: 0 - 5 HP F. The reference range was not used to int erpret this result as normal/abnormal . BACTERIA (test code = Moderate Negative A 7348879756) MUCOUS (test code = Slight Negative LPF A 5370729810) SQ EPITH (test code = HPF 4419252698) Lab Interpretation (test Abnormal code = 92765-7) [facility]COMP[facility]OLIC PANEL (39351)2019-11-28 22:30:00 Test Item Value Reference Range Interpretation Comments NA (test code = 133 mmol/L 135-145 L 2624179255) K (test code = 3.8 mmol/L 3.5-5 7422217407) CL (test code = 107 mmol/L 98-108 9913072878) CO2 TOTAL (test code = 23 mmol/L 23-31 8753302406) AGAP (test code = 2-16 7928135931) BUN (test code = 2 mg/dL 7-23 L 0890727084) GLUCOSE (test code = 81 mg/dL 70-110 0730314134) CREATININE (test code = 0.34 mg/dL 0.5-1.04 L 0554040030) TOTAL BILI (test code = 0.6 mg/dL 0.1-1.9 8302783895) CALCIUM (test code = 9.0 mg/dL 8.6-10.6 6274733235) T PROTEIN (test code = 6.2 g/dL 6.3-8.2 L 7604417113) ALBUMIN (test code = 3.2 g/dL 3.5-5 L 6245560180) ALK PHOS (test code = 82 U/L 34-122 1763388736) ALTv (test code = 12 U/L 5-35 1742-6) AST(SGOT) (test code = 17 U/L 13-40 8161880007) eGFR Calculation mL/min/1.73m2 (Non-) (test code = 5080433843) eGFR Calculation mL/min/1.73m2 () (test code = 9454973980) TRISTON (test code = TRISTON) Association of [...] tests). Lab Interpretation Abnormal (test code = 47606-9) [facility] WITH [id number] 21:54:00 Test Item Value Reference Range Interpretation [...] RDW-SD (test code = 39.8 fL 39-49.9 04170-2) RDW-CV (test code = 12.0 % 12-15.5 788-0) PLT (test code = See_Comment [Automated 777-3) message] The sy stem which generated this result transmitted reference range : 166 - 358 10*3/ ?L. The reference r dejuan was not used to interpret this result as normal/abnormal . MPV (test code = 11.1 fL 9.5-12.9 01717-9) NRBC/100 WBC (test See_Comment [Automat ed code = 2406981476) message] The system which generated this result transmitted reference range : 0.0 - 10.0 /100 WBCs. The refer ence range was not u sed to interpret th is result as normal/abnormal . NRBC x10^3 (test code <0.01 See_Comment [Auto mated = 3973737715) message] The s ystem which generated this result transmitted reference range : 10*3/?L. The reference range was not used to interpret this result as normal/abnormal . GRAN MAT (NEUT) % 78.1 % (test code = 770-8) IMM GRAN % (test code 0.60 % = 6945029246) LYMPH % (test code = 14.5 % 736-9) MONO % (test code = 4.8 % 5905-5) EOS % (test code = 1.7 % 713-8) BASO % (test code = 0.3 % 706-2) GRAN MAT x10^3(ANC) 8.84 10*3/uL 1.88-7.09 H (test code = 0999505634) IMM GRAN x10^3 (test 0.07 10*3/uL 0-0.06 H code = 3521361767) LYMPH x10^3 (test code 1.64 10*3/uL 1.32-3.29 = 731-0) MONO x10^3 (test code 0.54 10*3/uL 0.33-0.92 = 742-7) EOS x10^3 (test code = 0.19 10*3/uL 0.03-0.39 711-2) BASO x10^3 (test code 0.03 10*3/uL 0.01-0.07 = 704-7) Lab Interpretation Abnormal (test code = 21582-4) [facility] URINALYSIS W/O SPECIFIC [id number] 14:11:00 Test Item Value Reference Range Interpretation [...] code = 3257) Neg Negative - Negative [facility] URINALYSIS W/O SPECIFIC [id number] 14:11:00 Test Item Value Reference Range Interpretation [...] code = 3257) Neg Negative - Negative [facility]PO[facility] [id number] 14:10:00 Test Item Value Reference Range Interpretation Comments POCT PREG (test code = 1605) Positive On board controls acceptable with C Yes Line (test code = 3574) POCT PREG LOT # (test code = 3575) POCT PREG TEST DATE (test code = 3576) [facility] [id number] 14:10:00 Test Item Value Reference Range Interpretation Comments POCT PREG (test code = 1605) Positive On board controls acceptable with C Yes Line (test code = 3574) POCT PREG LOT # (test code = 3575) POCT PREG TEST DATE (test code = 357) [facility]HIV[facility] ANTIGEN WITH HIV-1/2 [id number] 16:26:00 Test Item Value Reference Range Interpretation Comments HIV-1 ANTIGEN WITH HIV 1\\T\\2 Nonreactive Nonreactive ANTIBODY (2) (BEAKER) (test code = 2586) BASIC METABOLIC [id number] 06:30:00 Test Item Value Reference Range Interpretation [...] m DATA TO CALCULA TE ESTIMATED GFR. [id number] 06:19:00 Test Item Value Reference Range Interpretation Comments PHOSPHORUS (BEAKER) (test code = 1.9 mg/dL 2.3-4.7 L 604) [id number] 06:19:00 Test Item Value Reference Range Interpretation Comments MAGNESIUM (BEAKER) (test code = 1.8 mg/dL 1.6-2.6 627) HEPATIC FUNCTION [id number] 06:19:00 Test Item Value Reference Range Interpretation [...] 6-55 347) CBC W/PLT COUNT & AUTO [id number] 06:11:00 Test Item Value Reference Range Interpretation [...] (BEAKER) (test code = 2801) BASIC METABOLIC [id number] 10:11:00 Test Item Value Reference Range Interpretation [...] m DATA TO CALCULA TE ESTIMATED GFR. [id number] 09:56:00 Test Item Value Reference Range Interpretation Comments PHOSPHORUS (BEAKER) (test code = 1.6 mg/dL 2.3-4.7 L 604) [id number] 09:56:00 Test Item Value Reference Range Interpretation Comments MAGNESIUM (BEAKER) (test code = 2.0 mg/dL 1.6-2.6 627) HEPATIC FUNCTION [id number] 09:56:00 Test Item Value Reference Range Interpretation [...] [id number]) CBC W/PLT COUNT & AUTO [id number] 09:53:00 Test Item Value Reference Range Interpretation [...] % 0-1 PERCENT (BEAKER) (test code = 5611)"
[2022-05-16] MEDS ORDERED: dexAMETHasone 10 MG/ML VIAL ONE (08:28)
[2022-05-16] MEDS ORDERED: METOCLOPRAMIDE 10 MG/2mL INJ ONE (08:28)
[2022-05-16] MEDS ORDERED: NA CHLORIDE 0.9% 1,000 ML ONE (08:29)
[2022-05-16] MEDS ORDERED: KETOROLAC 30 MG/ML INJ ONE (08:29)
[2022-05-16 08:39] LABS: Hematocrit 35.8 % (36.0-45.0); Lymphocytes % 11.5 % (15.3-44.8); MCV 86.8 fL (80-100); MPV 7.9 fL (7.6-11.3); RBC Red Blood Cell Count 4.13 M/uL (3.86-4.86)
[2022-05-16] MEDS ORDERED: DIPHENHYDRAMINE 50 MG/ML VIAL ONE (08:58)
[2022-05-16] MEDS ORDERED: MORPHINE 4 MG/ML SYR ONE (08:59)
--- NOTE | 2022-05-16 09:12 | RAD REPORT ---
EXAM DESCRIPTION: CT - Head Brain Wo Cont - 05/16/2022 8:43 am CLINICAL HISTORY: Headache COMPARISON: 2012 TECHNIQUE: Computed axial tomography of the head was obtained. IV contrast was not requested. All CT scans are performed using dose optimization technique as appropriate and may include automated exposure control or mA/KV adjustment according to patient size. FINDINGS: An intracranial bleed is not seen . The ventricles are normal in caliber. No significant hypodense areas within the brain visualized No extra-axial fluid collection is noted. Fluid within the sinuses/ mastoids is not seen. IMPRESSION: No acute intracranial abnormality is seen. If patient's symptoms persist MRI of the bra in would be recommended.
--- NOTE | 2022-05-16 09:42 | ER ---
Nurse's Notes [facility] Name: Elle Man Age: 31 yrs Sex: Female : 1990 Arrival Date: 05/16/2022 Time: 07:51 Bed 6 Private MD: Diagnosis: Headache Presentation: 05/16 08:00 Chief complaint: Patient states: headache, body aches and fever that began yesterday. ss Ibuprofen last taken 3 hours ago. Coronavirus screen: Client denies travel out of the [place] in the last 14 days. Ebola Screen: Patient denies exposure to infectious person. Patient denies travel to an Ebola-affected area in the 21 days before illness onset. Initial Sepsis Screen: Does the patient meet any 2 criteria? No. Patient's initial sepsis screen is negative. Does the patient have a suspected source of infection? No. Patient's initial sepsis screen is negative. Risk Assessment: Do you want to hurt yourself or someone else? Patient reports no desire to harm self or others. Onset of symptoms was May 15, 2022. 08:00 Method Of Arrival: Wheelchair ss 08:00 Acuity: LAYTON 3 ss Triage Assessment: 08:39 Headache History: The patient has had previous headaches and this one is similar to ll1 previous episodes. 09:49 Pain: Pain began 2-3 days ago. Also complains of nausea, inability to work. 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 - Social history:: Smoking status: Patient denies any tobacco usage or history of. Screenin:38 [facility] ED Fall Risk Assessment (Adult) Score/Fall Risk Level 0 - 2 = Low Risk ll1 Oriented to surroundings, Maintained a safe environment, Educated pt \T\ family on fall prevention, incl call for assistance when getting out of bed, Hourly rounding (assess needs \T\ fall precautionary measures) done. Abuse screen: Denies threats or abuse. Nutritional screening: No deficits noted. Tuberculosis screening: No symptoms or risk factors identified. Assessment: 08:15 General: Appears uncomfortable, ill, Behavior is cooperative, appropriate for age, ll1 restless. Pain: Complains of pain in head Pain currently is 10 out of 10 on a pain scale. Quality of pain is described as aching, throbbing. Neuro: Reports headache weakness. Cardiovascular: No deficits noted. Respiratory: No deficits noted. Musculoskeletal: Reports pain in body aches. 08:45 Reassessment: No changes from previously documented assessment. Dr Yang notified pain ll1 10/10 Patient states symptoms have not improved. 09:06 Reassessment: No changes from previously documented assessment. Patient and/or family ll1 updated on plan of care and expected duration. Pain level reassessed. Patient is alert, oriented x 3, equal unlabored respirations, skin warm/dry/pink. 09:19 Reassessment: No changes from previously documented assessment. Patient and/or family ss updated on plan of care and expected duration. Pain level reassessed. Patient is alert, oriented x 3, equal unlabored respirations, skin warm/dry/pink. 09:49 Reassessment: No changes from previously documented assessment. Patient and/or family ll1 updated on plan of care and expected duration. Pain level reassessed. Patient is alert, oriented x 3, equal unlabored respirations, skin warm/dry/pink. Patient states feeling better. Patient states symptoms have improved. Vital Signs: 08:00 BP 125 / 97; Pulse 75; Resp 18; Temp 98.1(TE); Pulse Ox 100% on R/A; Weight 90.72 kg; Height 5 ft. 11 in. (180.34 cm); Pain 10/10; 09:18 Pulse 69; Resp 17; Pulse Ox 100% ; Pain 8/10; ss 09:48 BP 122 / 66; Pulse 73; Resp 16; Pulse Ox 100% ; ll1 08:00 Body Mass Index 27.89 (90.72 kg, 180.34 cm) ED Course: 07:51 Patient arrived in ED. as 07:57 Luis Yang DO is Attending Physician. ms3 07:59 Dawn Quintero, ISIDRO is Primary Nurse. ll1 07:59 Arm band placed on Patient placed in an exam room, on a stretcher. ll1 08:19 Triage completed. ss 08:33 Inserted saline lock: 22 gauge in left antecubital area, using aseptic technique. Blood ll1 collected. 08:38 Patient has correct armband on for positive identification. Bed in low position. Call ll1 light in reach. Client placed on continuous cardiac and pulse oximetry monitoring. NIBP monitoring applied. 08:45 CT Head Brain wo Cont In Process Unspecified. EDMS 09:49 No provider procedures requiring assistance completed. ll1 09:55 IV discontinued, intact, bleeding controlled, No redness/swelling at site. Pressure ll1 dressing applied. Administered Medications: 08:25 Drug: NS 0.9% 1000 ml Route: IV; Rate: 1 bolus; Site: left antecubital; ll1 09:55 Follow up: Response: No adverse reaction; IV Status: Completed infusion; IV Intake: ll1 1000ml 08:26 Drug: TORadol - (ketorolac) 15 mg Route: IVP; Site: left antecubital; ll1 09:56 Follow up: Response: No adverse reaction; Pain is decreased; RASS: Alert and Calm (0) ll1 08:27 Drug: Decadron - Dexamethasone 10 mg Route: IVP; Site: left antecubital; ll1 09:55 Follow up: Response: No adverse reaction ll1 08:29 Drug: metoCLOPramide 10 mg Route: IVP; Site: left antecubital; ll1 09:56 Follow up: Response: No adverse reaction ll1 09:06 Drug: morphine 4 mg {Note: rass 0, pain 10/10.} Route: IVP; Infused Over: 4 mins; Site: ll1 left antecubital; 09:55 Follow up: Response: No adverse reaction; Pain is decreased; RASS: Alert and Calm (0) ll1 09:06 Drug: Benadryl (diphenhydrAMINE) 25 mg Route: IVP; Site: left antecubital; ll1 09:55 Follow up: Response: No adverse reaction ll1 Medication: 08:39 VIS not applicable for this client. ll1 Intake: 09:55 IV: 1000ml; Total: 1000ml. ll1 Outcome: 09:41 Discharge ordered by . ms3 09:49 Discharged to home ll1 09:49 Condition: stable 09:49 Discharge instructions given to patient, Instructed on discharge instructions, follow up and referral plans. medication usage, Demonstrated understanding of instructions, follow-up care, medications, Prescriptions given X 1. 09:56 Patient left the ED. ll1 Signatures: Dispatcher [employer] Aziza Mcdonald Shelby, RN RN ss Dawn Quintero RN RN ll1 Luis Yang DO DO ms3 Corrections: (The following items were deleted from the chart) 09:32 07:59 PMHx: bacterial meningitis; [facility]
--- NOTE | 2022-05-16 09:42 | EDPHYS ---
Physician Documentation [facility] Name: Elle Man Age: 31 yrs Sex: Female : 1990 Arrival Date: 05/16/2022 Time: 07:51 Bed 6 Private MD: ED Physician Luis Ynag HPI: 05/16 08:45 This 31 yrs old Female presents to ER via Wheelchair with complaints of ms3 Headache, body aches. 08:45 31-year-old female with past medical history of viral meningitis presents for headache ms3 that she rates a 10/10 and describes as being diffuse. Patient endorses nausea. Patient denies vomiting or, fever, chills. Patient states her symptoms began yesterday. Patient denies numbness, weakness, stiff neck, neck pain. Patient states symptoms are similar to when she had viral meningitis in the past.. FILLER PICKER: 09:49 LMP N/A - control method ll1 Historical: - Allergies: 07:59 No Known Drug Allergies; ll1 - PMHx: 07:59 miscarriage; ll1 09:31 Viral Meningitis; ss - PSHx: 07:59 Appendectomy; section; Cholecystectomy; ll1 - Immunization history:: Client reports receiving the 2nd dose of the Covid vaccine. - Social history:: Smoking status: Patient denies any tobacco usage or history of. ROS: 08:45 Constitutional: Negative for fever, and chills. Neck: Negative for injury, pain, and ms3 swelling, Cardiovascular: Negative for chest pain, and palpitations. Respiratory: Negative for shortness of breath, cough, wheezing, and pleuritic chest pain, Abdomen/GI: Negative for abdominal pain, nausea, vomiting, diarrhea, and constipation. 08:45 Neuro: Positive for headache. 08:45 All other systems are negative. Exam: 08:45 Constitutional: This is a well developed, well nourished patient who is awake, alert, ms3 and in no acute distress. Head/Face: Normocephalic, atraumatic. Neck: Trachea midline, no cervical lymphadenopathy. Supple, full range of motion without nuchal rigidity, or vertebral point tenderness. No Meningismus. Chest/axilla: Normal chest wall appearance and motion. Nontender with no deformity. Cardiovascular: Regular rate and rhythm with a normal S1 and S2. No gallops, murmurs, or rubs. Normal PMI, no JVD. No pulse deficits. Respiratory: Lungs have equal breath sounds bilaterally, clear to auscultation and percussion. No rales, rhonchi or wheezes noted. No increased work of breathing, no retractions or nasal flaring. Abdomen/GI: Soft, non-tender, with normal bowel sounds. No distension or tympany. No guarding or rebound. No evidence of tenderness throughout. Skin: Warm, dry with normal turgor. Normal color with no rashes, no lesions, and no evidence of cellulitis. MS/ Extremity: Pulses equal, no cyanosis. Neurovascular intact. Full, normal range of motion. 08:45 Neuro: Orientation: is normal, to person, place, time \T\ situation. Mentation: is normal, Memory: is normal, Cranial nerves: CN II- XII are normal as tested, Cerebellar function: normal finger to nose testing, Motor: is normal, Sensation: no obvious gross deficits, seizure activity, is not displayed by the patient. Vital Signs: 08:00 BP 125 / 97; Pulse 75; Resp 18; Temp 98.1(TE); Pulse Ox 100% on R/A; Weight 90.72 kg; ss Height 5 ft. 11 in. (180.34 cm); Pain 10/10; 09:18 Pulse 69; Resp 17; Pulse Ox 100% ; Pain 8/10; ss 09:48 BP 122 / 66; Pulse 73; Resp 16; Pulse Ox 100% ; ll1 08:00 Body Mass Index 27.89 (90.72 kg, 180.34 cm) MDM: 08:13 Patient medically screened. ms3 08:45 Differential diagnosis: intracerebral hemorrhage, meningitis, migraine, subarachnoid ms3 bleed. ED course: Discussed lumbar puncture with patient if CT head is negative. Patient declines lumbar puncture, stating she does not want that again. Discussed with patient lumbar puncture is how we diagnose meningitis. Risks and benefits of lumbar puncture explained to patient and patient declines.. 09:42 Data reviewed: vital signs, lab test result(s), CBC, anemia. Consideration of ms3 Admission/Observation Escalation of care including admission/observation considered. No emergent medical condition requiring admission identified at this time.. I considered the following discharge prescriptions or medication management in the emergency department I discussed and recommended Over The Counter medications, Rx for Toradol. 09:54 Counseling: I had a detailed discussion with the patient and/or guardian regarding: the ms3 historical points, exam findings, and any diagnostic results supporting the discharge/admit diagnosis, lab results, radiology results. 05/16 08:14 Order name: BMP; Complete Time: 08:50 ms3 05/16 08:14 Order name: CBC with Diff; Complete Time: 08:50 ms3 05/16 08:14 Order name: CT Head Brain wo Cont; Complete Time: 09:19 ms3 Administered Medications: 08:25 Drug: NS 0.9% 1000 ml Route: IV; Rate: 1 bolus; Site: left antecubital; ll1 09:55 Follow up: Response: No adverse reaction; IV Status: Completed infusion; IV Intake: ll1 1000ml 08:26 Drug: TORadol - (ketorolac) 15 mg Route: IVP; Site: left antecubital; ll1 09:56 Follow up: Response: No adverse reaction; Pain is decreased; RASS: Alert and Calm (0) ll1 08:27 Drug: Decadron - Dexamethasone 10 mg Route: IVP; Site: left antecubital; ll1 09:55 Follow up: Response: No adverse reaction ll1 08:29 Drug: metoCLOPramide 10 mg Route: IVP; Site: left antecubital; ll1 09:56 Follow up: Response: No adverse reaction ll1 09:06 Drug: morphine 4 mg {Note: rass 0, pain 10/10.} Route: IVP; Infused Over: 4 mins; Site: ll1 left antecubital; 09:55 Follow up: Response: No adverse reaction; Pain is decreased; RASS: Alert and Calm (0) ll1 09:06 Drug: Benadryl (diphenhydrAMINE) 25 mg Route: IVP; Site: left antecubital; ll1 09:55 Follow up: Response: No adverse reaction ll1 Disposition Summary: 05/16/22 09:41 Discharge Ordered Location: Home ms3 Condition: Stable ms3 Diagnosis - Headache ms3 Discharge Instructions: - Discharge Summary Sheet ms3 - General Headache Without Cause ms3 Forms: - Medication Reconciliation Form ms3 - Thank You Letter ms3 - Work release form ll1 - Antibiotic Education ms3 - Prescription Opioid Use ms3 Prescriptions: - ketorolac 10 mg Oral tablet - take 1 tablet by ORAL route every 4-6 hours not to exceed 40 mg in 24hrs; 20 ms3 tablet; Refills: 0, Product Selection Permitted Signatures: Dispatcher [employer] Valerie Paulino RN RN ss Dawn Quintero RN RN ll1 Luis Yang DO DO ms3 Corrections: (The following items were deleted from the chart) 09:32 07:59 PMHx: bacterial meningitis; [facility]
[2022-05-16 10:22] VITALS: TEMP 98.1; O2SAT 100
[2022-05-16 10:24] VITALS: BP 122/66
== END 2022-05-16 09:56 | disposition home or self-care (01) ==
LOC: ER 07:48
DX: R51.9 Headache, unspecified (principal)
CPT/HCPCS: 96361; 85025; 80048; 36415; 70450; 96375; 96374; 99284; J2765; J1200; J1100; J7030

== ENCOUNTER 2022-05-17 23:52 | Emergency (ER) | payer OTHER ==
--- OUTSIDE RECORDS SUMMARY | 2022-05-17 23:59 | XMS REPORT | Continuity of Care Document ---
:1990 Author Organization [facility] [place] t Address [address] [place] [address] [address] [place] [address] Care Team Providers Name Role Phone Sharpless Primary Care Physician Only, Ang Db Test Attending Clinician Unavailable Elder Brandon Attending Clinician ELDER KELLY Attending Clinician Unavailable Belén Crespo MD Attending Clinician BELÉN CRESPO Attending Clinician Unavailable LORE DENNEY Attending Clinician Unavailable Roshan West DO Attending Clinician Michael Agarwal MD Attending Clinician Jonny Zamudio DO Attending Clinician Matthias Jewell Attending Clinician Doctor Unassigned, [place] Attending Clinician Unavailable RUY PATRICK Attending Clinician Unavailable Ruy Patrick PA-C Attending Clinician Marissa Lizama Attending Clinician LADONNA LEYVA Attending Clinician Unavailable JOSHUA FLORES Attending Clinician Unavailable Ekta Morse DO Attending Clinician Nurse, [facility] Attending Clinician Unavailable Ladonna Leyva MD Attending Clinician NORAH ZAMUDIO Attending Clinician Unavailable NORAH ZAMUDIO Attending Clinician Unavailable Rishi Singh MD Attending Clinician Sona Lawrence Attending Clinician Room, [facility] Nst Attending Clinician Unavailable Ultrasound, [facility] Mf Attending Clinician Unavailable Amada Hernandez MD Attending Clinician AMADA HERNANDEZ Attending Clinician Unavailable AMADA HERNANDEZ Attending Clinician Unavailable Ultrasound, [facility] Attending Clinician Unavailable Norah Zamudio MD Attending Clinician Ben Swanson MD, [place] Attending Clinician [phone], [facility] Room Attending Clinician Unavailable 2, [facility] Lab Attending Clinician Unavailable 3, [facility] Room Attending Clinician Unavailable Allen Martinez MD Attending Clinician 1, [facility] Room Attending Clinician Unavailable Gurmeet Hall MD Attending Clinician 2, [facility] Genetic Consults Attending Clinician Unavailable Matthew Alcantar MD Attending Clinician [facility] [phone] Pob1, Acute Care Clinic Attending Clinician Unavailable Lab, [facility] Fam Pob I Attending Clinician Unavailable KELSEY WALL Attending Clinician Unavailable BLAYNE MARTINES Attending Clinician Unavailable Michael Agarwal MD Admitting Clinician NORAH ZAMUDIO Admitting Clinician Unavailable BLAYNE MARTINES Admitting Clinician Unavailable Payers Payer Name Policy Type Policy Number Effective Date Expiration Date Replaced by [facility] [id number] 2019 [facility] MEDICAID 00:00:00 [facility] [id number] 2021 PPO 00:00:00 00:00:00 Problems Condition Condition Condition Status Onset Resolution Last Treating Co mments Source Name Details Category Date Date Treatment Clinician Date Abdominal Abdominal Disease Active Uni vers pain pain 3-24 ity of 00:00: [place] 00 Medical Branch Symptomati Symptomati Disease Active 2021-0 U nivers c c 3-24 ity of cholelithi cholelithi [place]is 00 Medical Branch 37 weeks 37 weeks Disease Active 2019-04 Unive rs gestation gestation 2-30 ity of of of 00:00: [place] 00 [facility] Branch Polyhydram Polyhydram Disease Active 2019-04 U nivers nios, nios, 2-17 ity of antepartum antepartum [place] , single , single 00 Medica l or or Branch unspecifie unspecifie d fetus d fetus Excessive Excessive Disease Active 2019-04 Uni vers 1-25 ity of growth growth 00:00: [place] affecting affecting 00 Medi dee , , Br anch antepartum antepartum , single , single or or unspecifie unspecifie d fetus d fetus Excessive Excessive Disease Active 2019-04 Uni vers 1-25 ity of growth growth 00:00: [place] affecting affecting 00 Medi dee , , [...] (BMI 8-11 ity of 30-39.9) 30-39.9) 00:00: [place] 00 Medical Branch Nausea and Nausea and Disease Active 2020- U nivers vomiting vomiting 8-11 ity of during during 00:00: [place] 00 Medi dee prior to prior to Branch 22 weeks 22 weeks gestation gestation Nasal Nasal Disease Active 2020- Univers congestion congestion 8-11 it y of with with 00:00: [place] rhinorrhea rhinorrhea 00 Me dical Branch Nasal Nasal Disease Active 2020 Univers congestion congestion 8-11 it y of with with 00:00: [place] rhinorrhea rhinorrhea 00 Me dical Branch UTI in UTI in Disease Active 2019- Overview: Univer s 7-13 Formattin i ty of 00:00: g of this [place] note Medical might be Branch different from the original. pending FREDERICK Supervisio Supervisio Disease Active 2020-0 U nivers n of n of 11-02 ity of high-risk high-risk 00:[place] [facility] Obesity in Obesity in Disease Active 2020-0 U nivers 11-02 ity of 00:00: [place] [address] Medical Branch Multiparit Multiparit Disease Active 2020-0 U nivers y y 11-02 ity of 00:00: [place] [address] Medical Branch History of History of Disease [...] 11-02 it y of e e 00:00: [place] [address] Medical Branch History of History of Disease Active 2019-0 Overview : Univers 11-02 Formattin ity of section section 00:00: g of this [place] note Medical might be Branch different from the original. Desires repeat Cellulitis Cellulitis Disease Active [facility] Hypokalemi Hypokalemi Disease Active 2016-[address] [facility]: Medical 00 [place] Headache Headache Disease [facility] 2016[facility] 00 [place] Elevated Elevated Disease [facility] 2016[facility]04 [facility] Aseptic Aseptic Disease Active 2016-[address] meningitis meningitis 0-08 [facility] k[facility] 00:00: Medical 00 [place] Encephalit Encephalit Diagnosis Active Common is [facility] Allergies, Adverse Reactions, Alerts Allergy Allergy Status Severity Reaction(s) Onset Inactive Treating Comm ents Source Name Type Date Date Clinician NO KNOWN Drug Active Univers ALLERGIE Class ity of [facility] Social History Social Habit Start Date Stop Date Quantity Comments Source ASSERTION 2019-08-19 [facility] 00:00:00 Medical [place] Exposure to Yes [facility] SARS-CoV-2 (event) Medica l Branch Alcohol intake 2020-08-13 2020-08-13 0 /d [facility] 00:00:00 00:00:00 [facility] Branch Tobacco use and 2017-02-01 2017-02-01 Never used OLIVA Murray exposure 00:00:00 00:00:00 [facility] Sex Assigned At [birth year] OLIVA [place] 00:00:00 00:00:00 [facility] Smoking Status Start Date Stop Date Source Never smoker University [facility] xas [facility] Medications Ordered Filled Start Stop Current Ordering Indication Dosage Frequency Signature Comments Components Source Medication Medication Date Date Medication? Clinician (SIG) Name Name pantoprazol Yes 40mg 40 mg, Univ ers e 3-25 Oral, ity of (PROTONIX) 14:00: DAILY, [place] EC tablet 00 First dose Medi dee 40 mg on [facility] 07/19/20 at 0900, Until Discontinu ed, Routine enoxaparin Yes 40mg 40 mg, Unive rs (LOVENOX) 3-25 Subcutaneo ity of injection 14:00: [place] 40 mg 00 First dose Medical on [facility] 07/19/20 at 0900, Until Discontinu ed, Routine zolpidem 5mg 5 mg, Univers (AMBIEN) 325 03-25 Oral, ONCE ity of tablet 5 mg 05:58: 05:59 NOW, 1 [place] 00 :00 dose, [facility] 07/19/20 at Branch 0100, Routine PARoxetine Yes [id number] 10mg Take 1 U nivers (PAXIL) 10 3-25 tablet by ity of mg tablet 00:00: mouth [place] 00 daily. [facility] Branch HYDROcodone Yes [id number] 1{tbl} Take 1 Un inés -acetaminop 3-25 tablet by ity of hen 5-325 00:00: mouth [place] mg tablet 00 every 6 Medical (six) Branch hours as needed for Pain (scale 7-10). Indication s: acute pain PARoxetine Yes [id number] 10mg Take 1 U nivers (PAXIL) 10 3-25 tablet by ity of mg tablet 00:00: mouth [place] 00 daily. Medical Branch PARoxetine Yes [id number] 10mg Take 1 U nivers (PAXIL) 10 3-25 tablet by ity of mg tablet 00:00: mouth [place] 00 daily. Medical Branch HYDROcodone Yes [id number] 1{tbl} Take 1 Un inés -acetaminop 3-25 tablet by ity of hen 5-325 00:00: mouth [place] mg tablet 00 every 6 Medical (six) Branch hours as needed for Pain (scale 7-10). Indication s: acute pain PARoxetine Yes [id number] 10mg Take 1 U nivers (PAXIL) 10 3-25 tablet by ity of mg tablet 00:00: mouth [place] 00 daily. Medical Branch HYDROcodone Yes [id number] 1{tbl} Take 1 Un inés -acetaminop 3-25 tablet by ity of hen 5-325 00:00: mouth [place] mg tablet 00 every 6 Medical (six) Branch hours as needed for Pain (scale 7-10). Indication s: acute pain sennosides- 2020- No [id number] 1{tbl} Take 1 Univers docusate 3-25 04-25 tablet by ity o f sodium 00:00: 04:59 mouth [place] 8.6-50 mg 00 :00 daily for Medic al per tablet 30 days. [facility] sennosides- 2020- No [id number] 1{tbl} Take 1 Univers docusate 3-25 04-25 tablet by ity o f sodium 00:00: 04:59 mouth [place] 8.6-50 mg 00 :00 daily for Medic al per tablet 30 days. [facility] sennosides- 2020- No [id number] 1{tbl} Take 1 Univers docusate 3-25 04-25 tablet by ity o f sodium 00:00: 04:59 mouth [place] 8.6-50 mg 00 :00 daily for Medic al per tablet 30 days. [facility] HYDROcodone 2020- No [id number] 1{tbl} Take [...] Slow IV ity of (PF)) 20:41: Push, [place] injection 47 Q5MIN PRN, Medi dee 25 [...] IV Push, ity of (PF)) 20:32: Q6HPRN, [place] injection 4 51 Starting Medi dee mg Wed Branch 07/18/20 at 1532, Until Discontinu ed, Routine, Nausea and Vomiting (N/V) morpHINE 2020-0 Yes 2mg 2 mg, Slow Uni vers injection 2 3-24 IV Push, ity of mg 20:30: Q4HPRN, [place] 11 Starting Medical Wed Branch 07/18/20 at 1530, Until Discontinu ed, Routine, Pain (scale 7-10) HYDROcodone 0 Yes 1{tbl} 1 tablet, Univers -acetaminop 07-18 Oral, ity of hen (NORCO) 20:29: Q6HPRN, [place] as 10-325 mg 56 Starting Medica l tablet 1 Thu [place] tablet 07/18/20 at 1529, Until Discontinu ed, Routine, Pain (scale 4-6) sodium 2020-0 Yes PRN, Univers chloride 07-18 Starting ity of 0.9 % 20:08: Thu [place] irrigation 00 07/18/20 at [facility] ical solution 1508, [place] Until Discontinu ed, Intra-op bupivacaine 0 Yes PRN, Univer s -epinephrin 07-18 Starting ity of e-pf 18:58: Thu [place] (SENSORCAIN 07/18/20 at Md dical E 1358, [place] W/EPINEPHRI Intra-op NE) 0.25 %-1:200,000 30 mL, lidocaine 1% (PF) (XYLOCAINE) 30 mL lactated 2020- No 1000mL at 42 Unive rs ringers IV 07-18 03-24 mL/hr, ity of infusion 18:15: 18:02 1,000 mL, [place] 1,000 mL 00 :00 IV Medical Infusion, [place] ONCE, 1 dose, [facility] 07/18/20 at 1315, Routine, DSU Pre-op lactated 0 Yes 1000mL at 125 Unive rs ringers IV 3-24 mL/hr, ity of infusion 14:45: 1,000 mL, [place] 1,000 mL 00 IV Medical Infusion, [place] CONTINUOUS , Starting [facility] 07/18/20 at 0945, Until Discontinu ed, Routine dicyclomine Yes 10mg 10 mg, Univ ers (BENTYL) 24 Oral, QID, ity o f capsule 10 13:00: First dose [place] mg 00 on [facility] 07/18/20 at [place] 0800, Until Discontinu ed, Routine ondansetron 2020- No 4mg 4 mg, Slow Univers (ZOFRAN 07-18 03-24 IV Push, ity of (PF)) 12:30: 11:31 ONCE, 1 [place] injection 4 00 :00 dose, Wed Med ical mg 07/18/20 at Branch 0730, Routine iohexol 2020- No [id number] 120mL 120 mL, Univers (OMNIPAQUE 07-1824 Intravenou it y of 350 12:00: 12:00 s, ONCE, 1 [place] BULK-150 00 :00 dose, Wed Medica l mL) 07/18/20 at Branch injection 0700, 120 mL Routine NaCl 0.9% 2020- No 1000mL at 999 Uni vers (NS) bolus 07-18 mL/hr, ity of infusion 11:30: 11:29 1,000 mL, [place] 1,000 mL 00 :00 IV Medical Infusion, [place] ONCE, 1 dose, [facility] 07/18/20 at 0630, STAT morpHINE No 4mg 4 mg, Slow Un inés injection 4 07-18 IV Push, ity of mg 11:23: 14:30 Q4HPRN, [place] 42 :24 Starting Medical Wed [place] 07/18/20 at 0623, Until [facility] 07/18/20 at 0930, Routine, Pain (scale 7-10) iohexol 2020- No [id number] 120mL 120 mL, Univers (OMNIPAQUE 07-10 Intravenou it y of 350 07:15: 07:15 s, ONCE, 1 [place] BULK-150 00 :00 dose, Tue Medica l [...] ity of mg 07:00: 06:17 ONCE, 1 [place] 00 :00 dose, Tue Medical 07/10/20 at [...] 7-10). Indication s: acute pain traMADoL 50 2020- No [id number] 50mg Take 1 Uni [...] Restricted medication : MARISSA NAVA cyclobenzap Yes [id number] 10mg Take 1 Univers rine 10 mg 2-11 tablet by ity of tablet 00:00: mouth 3 [place] 00 (three) Medical times Branch daily as needed for Muscle Spasms. naproxen Yes [id number] 500mg Take 1 U nivers (NAPROSYN) 2-11 tablet by ity of 500 mg 00:00: mouth 2 [place] tablet 00 (two) Medical times Branch daily with meals. cyclobenzap 2020-0 Yes [id number] 10mg Take 1 Univers rine 10 mg 2-11 tablet by ity of tablet 00:00: mouth 3 [place] 00 (three) Medical times Branch daily as needed for Muscle Spasms. naproxen 2020-0 Yes [id number] 500mg Take 1 U nivers (NAPROSYN) 2-11 tablet by ity of 500 mg 00:00: mouth 2 [place] tablet 00 (two) Medical times Branch daily with meals. cyclobenzap 2020-0 Yes [id number] 10mg Take 1 Univers rine 10 mg 2-11 tablet by ity of tablet 00:00: mouth 3 [place] 00 (three) Medical times Branch daily as needed for Muscle Spasms. naproxen 2020-0 Yes [id number] 500mg Take 1 U nivers (NAPROSYN) 2-11 tablet by ity of 500 mg 00:00: mouth 2 [place] tablet 00 (two) Medical times Branch daily with meals. cyclobenzap 2020-0 Yes [id number] 10mg Take 1 Univers rine 10 mg 2-11 tablet by ity of tablet 00:00: mouth 3 [place] 00 (three) Medical times Branch daily as needed for Muscle Spasms. naproxen 2020-0 Yes [id number] 500mg Take 1 U nivers (NAPROSYN) 2-11 tablet by ity of 500 mg 00:00: mouth 2 [place] tablet 00 (two) Medical times Branch daily with meals. cyclobenzap 2020-0 Yes [id number] 10mg Take 1 Univers rine 10 mg 2-11 tablet by ity of tablet 00:00: mouth 3 [place] 00 (three) Medical times Branch daily as needed for Muscle Spasms. naproxen 2020-0 Yes [id number] 500mg Take 1 U nivers (NAPROSYN) 2-11 tablet by ity of 500 mg 00:00: mouth 2 [place] tablet 00 (two) Medical times Branch daily with meals. cyclobenzap 2020-0 2021- No [id number] 10mg Take 1 Univers rine 10 mg 2-11 03-25 tablet by ity of tablet 00:00: 00:00 mouth 3 [place] 00 :00 (three) Medical times Branch daily as needed for Muscle Spasms. naproxen 2020- No [id number] 500mg Take 1 Univers (NAPROSYN) 2-11 03-25 tablet by ity of 500 mg 00:00: 00:00 mouth 2 [place] tablet 00 :00 (two) Medical times Branch daily with meals. norgestimat Yes [id number] 1{tbl} Take 1 Univers e-ethinyl 1-28 tablet by ity o f estradioL 00:00: mouth [place] 0.25-35 00 daily. Medical mg-mcg per Branch tablet norgestimat Yes [id number] 1{tbl} Take 1 Univers e-ethinyl 1-28 tablet by ity o f estradioL 00:00: mouth [place] 0.25-35 00 daily. Medical mg-mcg per Branch tablet PARoxetine Yes [id number] 10mg Take 1 U nivers (PAXIL) 10 1-28 tablet by ity of mg tablet 00:00: mouth [place] 00 daily. Medical Branch norgestimat Yes [id number] 1{tbl} Take 1 Univers e-ethinyl 1-28 tablet by ity o f estradioL 00:00: mouth [place] 0.25-35 00 daily. Medical mg-mcg per Branch tablet PARoxetine Yes [id number] 10mg Take 1 U nivers (PAXIL) 10 1-28 tablet by ity of mg tablet 00:00: mouth [place] 00 daily. Medical Branch norgestimat Yes [id number] 1{tbl} Take 1 Univers e-ethinyl 1-28 tablet by ity o f estradioL 00:00: mouth [place] 0.25-35 00 daily. Medical mg-mcg per Branch tablet PARoxetine Yes [id number] 10mg Take 1 U nivers (PAXIL) 10 1-28 tablet by ity of mg tablet 00:00: mouth [place] 00 daily. Medical Branch norgestimat Yes [id number] 1{tbl} Take 1 Univers e-ethinyl 1-28 tablet by ity o f estradioL 00:00: mouth [place] 0.25-35 00 daily. Medical mg-mcg per Branch tablet PARoxetine Yes [id number] 10mg Take 1 U nivers (PAXIL) 10 1-28 tablet by ity of mg tablet 00:00: mouth [place] 00 daily. [facility] norgestimat Yes [id number] 1{tbl} Take 1 Univers e-ethinyl 1-28 tablet by ity o f estradioL 00:00: mouth [place] 0.25-35 00 daily. Medical mg-mcg per Branch tablet PARoxetine Yes [id number] 10mg Take 1 U nivers (PAXIL) 10 1-28 tablet by ity of mg tablet 00:00: mouth [place] 00 daily. Medical Branch norgestimat Yes [id number] 1{tbl} Take 1 Univers e-ethinyl 1-28 tablet by ity o f estradioL 00:00: mouth [place] 0.25-35 00 daily. Medical mg-mcg per Branch tablet PARoxetine Yes [id number] 10mg Take 1 U nivers (PAXIL) 10 1-28 tablet by ity of mg tablet 00:00: mouth [place] 00 daily. [facility] norgestimat Yes [id number] 1{tbl} Take 1 Univers e-ethinyl 1-28 tablet by ity o f estradioL 00:00: mouth [place] 0.25-35 00 daily. Medical mg-mcg per Branch tablet PARoxetine Yes [id number] 10mg Take 1 U nivers (PAXIL) 10 1-28 tablet by ity of mg tablet 00:00: mouth [place] 00 daily. [facility] Branch norgestimat Yes [id number] 1{tbl} Take 1 Univers e-ethinyl 1-28 tablet by ity o f estradioL 00:00: mouth [place] 0.25-35 00 daily. Medical mg-mcg per Branch tablet PARoxetine Yes [id number] 10mg Take 1 U nivers (PAXIL) 10 1-28 tablet by ity of mg tablet 00:00: mouth [place] 00 daily. [facility] norgestimat Yes [id number] 1{tbl} Take 1 Univers e-ethinyl 1-28 tablet by ity o f estradioL 00:00: mouth [place] 0.25-35 00 daily. Medical mg-mcg per Branch tablet PARoxetine Yes [id number] 10mg Take 1 U nivers (PAXIL) 10 1-28 tablet by ity of mg tablet 00:00: mouth [place] 00 daily. Medical Branch norgestimat Yes [id number] 1{tbl} Take 1 Univers e-ethinyl 1-28 tablet by ity o f estradioL 00:00: mouth [place] 0.25-35 00 daily. Medical mg-mcg per Branch tablet norgestimat Yes [id number] 1{tbl} Take 1 Univers e-ethinyl 1-28 tablet by ity o f estradioL 00:00: mouth [place] 0.25-35 00 daily. Medical mg-mcg per Branch tablet norgestimat Yes [id number] 1{tbl} Take 1 Univers e-ethinyl 1-28 tablet by ity o f estradioL 00:00: mouth [place] 0.25-35 00 daily. Medical mg-mcg per Branch tablet PARoxetine 2020- No [id number] 10mg Take 1 Univers (PAXIL) 10 05-24 03-25 tablet by ity of mg tablet 00:00: 00:00 mouth [place] 00 :00 daily. [facility] Branch morpHINE 2020- No 4mg 4 mg, Slow Un inés injection 4 05-18 IV Push, ity of mg 10:15: 09:16 ONCE, 1 [place] 00 :00 dose, Fri [facility] 05/18/20 at Branch 0415, STAT morpHINE 2020- No 4mg 4 mg, Slow Un inés injection 4 05-18 IV Push, ity of mg 10:15: 09:16 ONCE, 1 [place] 00 :00 dose, Fri [facility] 05/18/20 at Branch 0415, STAT FENTanyl PF 2020-0 2020- No 50ug 50 mcg, Un inés (SUBLIMAZE 05-18 Slow IV ity o f (PF)) 09:15: 08:12 Push, [place] injection 00 :00 ONCE, 1 Medical 50 mcg dose, Fri [place] 05/18/20 at 0315, STAT FENTanyl PF 2020-2020- No 50ug 50 mcg, Un inés (SUBLIMAZE 05-18 Slow IV ity o f (PF)) 09:15: 08:12 Push, [place] injection 00 :00 ONCE, 1 Medical 50 mcg dose, Fri [place] 05/18/20 at 0315, STAT iohexol 2020- No [...] Branch injection 0300, 100 mL Routine ketorolac No 30mg 30 mg, Unive [...] Restricted medication : EKTA MORSE 2019-04 Yes [id number] 1{tbl} Take 1 Univers vitamin 2-30 tablet by ity of w/FA tablet 00:00: mouth [place] 00 daily. Medical Branch docusate 2019-04 Yes [id number] 240mg Take 1 U nivers calcium 240 2-30 capsule by it y of mg capsule 00:00: mouth [place] 00 daily as Medical needed for Branch Constipati on. ferrous 2019-04 Yes [id number] 325mg Take 1 Un inés sulfate 325 2-30 tablet by ity of mg (65 mg 00:00: mouth 2 [place] iron) 00 (two) Medical tablet times Branch daily. ibuprofen 2019-04 Yes [id number] 600mg Take 1 Univers 600 mg 2-30 tablet by ity of tablet 00:00: mouth [place] 00 every 6 Medical (six) Branch hours as needed (Pain). Take with food or milk. 2019-04 Yes [id number] 1{tbl} Take 1 Univers vitamin 2-30 tablet by ity of w/FA tablet 00:00: mouth [place] 00 daily. Medical Branch docusate 2019-04 Yes [id number] 240mg Take 1 U nivers calcium 240 2-30 capsule by it y of mg capsule 00:00: mouth once [place] 00 daily as Medical needed for Branch Constipati on. ferrous 2019-04 Yes [id number] 325mg Take 1 Un inés sulfate 325 2-30 tablet by ity of mg (65 mg 00:00: mouth 2 [place] iron) 00 (two) Medical tablet times Branch daily. ibuprofen 2019-04 Yes [id number] 600mg Take 1 Univers 600 mg 2-30 tablet by ity of tablet 00:00: mouth [place] 00 every 6 Medical (six) Branch hours as needed (Pain). Take with food or milk. 2019-04 Yes [id number] 1{tbl} Take 1 Univers vitamin 2-30 tablet by ity of w/FA tablet 00:00: mouth [place] 00 daily. Medical Branch docusate 2019-04 Yes [id number] 240mg Take 1 U nivers calcium 240 2-30 capsule by it y of mg capsule 00:00: mouth once [place] 00 daily as Medical needed for Branch Constipati on. ferrous 2019-04 Yes [id number] 325mg Take 1 Un inés sulfate 325 2-30 tablet by ity of mg (65 mg 00:00: mouth 2 [place] iron) 00 (two) Medical tablet times Branch daily. ibuprofen 2019-04 Yes [id number] 600mg Take 1 Univers 600 mg 2-30 tablet by ity of tablet 00:00: mouth [place] 00 every 6 Medical (six) Branch hours as needed (Pain). Take with food or milk. 2019-04 Yes [id number] 1{tbl} Take 1 Univers vitamin 2-30 tablet by ity of w/FA tablet 00:00: mouth [place] 00 daily. Medical Branch docusate 2019-04 Yes [id number] 240mg Take 1 U nivers calcium 240 2-30 capsule by it y of mg capsule 00:00: mouth once [place] 00 daily as Medical needed for Branch Constipati on. ferrous 2019-04 Yes [id number] 325mg Take 1 Un inés sulfate 325 2-30 tablet by ity of mg (65 mg 00:00: mouth 2 [place] iron) 00 (two) Medical tablet times Branch daily. ibuprofen 2019-04 Yes [id number] 600mg Take 1 Univers 600 mg 2-30 tablet by ity of tablet 00:00: mouth [place] 00 every 6 Medical (six) Branch hours as needed (Pain). Take with food or milk. 2019-04 Yes [id number] 1{tbl} Take 1 Univers vitamin 2-30 tablet by ity of w/FA tablet 00:00: mouth [place] 00 daily. Medical Branch docusate 2019-04 Yes [id number] 240mg Take 1 U nivers calcium 240 2-30 capsule by it y of mg capsule 00:00: mouth once [place] 00 daily as Medical needed for Branch Constipati on. ferrous 2019-04 Yes [id number] 325mg Take 1 Un inés sulfate 325 2-30 tablet by ity of mg (65 mg 00:00: mouth 2 [place] iron) 00 (two) Medical tablet times Branch daily. ibuprofen 2019-04 Yes [id number] 600mg Take 1 Univers 600 mg 2-30 tablet by ity of tablet 00:00: mouth [place] 00 every 6 Medical (six) Branch hours as needed (Pain). Take with food or milk. 2019-04 Yes [id number] 1{tbl} Take 1 Univers vitamin 2-30 tablet by ity of w/FA tablet 00:00: mouth [place] 00 daily. Medical Branch docusate 2019-04 Yes [id number] 240mg Take 1 U nivers calcium 240 2-30 capsule by it y of mg capsule 00:00: mouth once [place] 00 daily as Medical needed for Branch Constipati on. ferrous 2019-04 Yes [id number] 325mg Take 1 Un inés sulfate 325 2-30 tablet by ity of mg (65 mg 00:00: mouth 2 [place] iron) 00 (two) Medical tablet times Branch daily. ibuprofen 2019-04 Yes [id number] 600mg Take 1 Univers 600 mg 2-30 tablet by ity of tablet 00:00: mouth [place] 00 every 6 Medical (six) Branch hours as needed (Pain). Take with food or milk. 2019-04 Yes [id number] 1{tbl} Take 1 Univers vitamin 2-30 tablet by ity of w/FA tablet 00:00: mouth [place] 00 daily. Medical Branch docusate 2019-04 Yes [id number] 240mg Take 1 U nivers calcium 240 2-30 capsule by it y of mg capsule 00:00: mouth once [place] 00 daily as Medical needed for Branch Constipati on. ferrous 2019-04 Yes [id number] 325mg Take 1 Un inés sulfate 325 2-30 tablet by ity of mg (65 mg 00:00: mouth 2 [place] iron) 00 (two) Medical tablet times Branch daily. ibuprofen 2019-04 Yes [id number] 600mg Take 1 Univers 600 mg 2-30 tablet by ity of tablet 00:00: mouth [place] 00 every 6 Medical (six) Branch hours as needed (Pain). Take with food or milk. 2019-04 Yes [id number] 1{tbl} Take 1 Univers vitamin 2-30 tablet by ity of w/FA tablet 00:00: mouth [place] 00 daily. Medical Branch docusate 2019-04 Yes [id number] 240mg Take 1 U nivers calcium 240 2-30 capsule by it y of mg capsule 00:00: mouth [place] 00 daily as Medical needed for Branch Constipati on. ferrous 2019-04 Yes [id number] 325mg Take 1 Un inés sulfate 325 2-30 tablet by ity of mg (65 mg 00:00: mouth 2 [place] iron) 00 (two) Medical tablet times Branch daily. ibuprofen 2019-04 Yes [id number] 600mg Take 1 [facility] 600 mg 2-30 tablet by ity of tablet 00:00: mouth [place] 00 every 6 Medical (six) Branch hours as needed (Pain). Take with food or milk. 2019-04 Yes [id number] 1{tbl} Take 1 [facility] vitamin 2-30 tablet by ity of w/FA tablet 00:00: mouth [place] 00 daily. Medical Branch docusate 2019-04 Yes [id number] 240mg Take 1 U nivers calcium 240 2-30 capsule by it y of mg capsule 00:00: mouth once [place] 00 daily as Medical needed for Branch Constipati on. ferrous 2019-04 Yes [id number] 325mg Take 1 Un inés sulfate 325 2-30 tablet by ity of mg (65 mg 00:00: mouth 2 [place] iron) 00 (two) Medical tablet times Branch daily. ibuprofen 2019-04 Yes [id number] 600mg Take 1 [facility] 600 mg 2-30 tablet by ity of tablet 00:00: mouth [place] 00 every 6 Medical (six) Branch hours as needed (Pain). Take with food or milk. 2019-04 Yes [id number] 1{tbl} Take 1 [facility] vitamin 2-30 tablet by ity of w/FA tablet 00:00: mouth [place] 00 daily. Medical Branch docusate 2019-04 Yes [id number] 240mg Take 1 U nivers calcium 240 2-30 capsule by it y of mg capsule 00:00: mouth once [place] 00 daily as Medical needed for Branch Constipati on. ferrous 2019-04 Yes [id number] 325mg Take 1 Un inés sulfate 325 2-30 tablet by ity of mg (65 mg 00:00: mouth 2 [place] iron) 00 (two) Medical tablet times Branch daily. ibuprofen 2019-04 Yes [id number] 600mg Take 1 [facility] 600 mg 2-30 tablet by ity of tablet 00:00: mouth [place] 00 every 6 Medical (six) Branch hours as needed (Pain). Take with food or milk. 2019-04 Yes [id number] 1{tbl} Take 1 [facility] vitamin 2-30 tablet by ity of w/FA tablet 00:00: mouth [place] 00 daily. Medical Branch docusate 2019-04 Yes [id number] 240mg Take 1 U nivers calcium 240 2-30 capsule by it y of mg capsule 00:00: mouth once [place] 00 daily as Medical needed for Branch Constipati on. ferrous 2019-04 Yes [id number] 325mg Take 1 Un inés sulfate 325 2-30 tablet by ity of mg (65 mg 00:00: mouth 2 [place] iron) 00 (two) Medical tablet times Branch daily. ibuprofen 2019-04 Yes [id number] 600mg Take 1 [facility] 600 mg 2-30 tablet by ity of tablet 00:00: mouth [place] 00 every 6 Medical (six) Branch hours as needed (Pain). Take with food or milk. 2019-04 Yes [id number] 1{tbl} Take 1 [facility] vitamin 2-30 tablet by ity of w/FA tablet 00:00: mouth [place] 00 daily. Medical Branch docusate 2019-04 Yes [id number] 240mg Take 1 U nivers calcium 240 2-30 capsule by it y of mg capsule 00:00: mouth once [place] 00 daily as Medical needed for Branch Constipati on. ferrous 2019-04 Yes [id number] 325mg Take 1 Un inés sulfate 325 2-30 tablet by ity of mg (65 mg 00:00: mouth 2 [place] iron) 00 (two) Medical tablet times Branch daily. ibuprofen 2019-04 Yes [id number] 600mg Take 1 [facility] 600 mg 2-30 tablet by ity of tablet 00:00: mouth [place] 00 every 6 Medical (six) Branch hours as needed (Pain). Take with food or milk. 2019-04- No [id number] 1{tbl} Take 1 [facility] vitamin 2-30 03-25 tablet by ity of w/FA tablet 00:00: 00:[place] :00 daily. Medical Branch docusate 2019-04- No [id number] 240mg Take 1 [facility] calcium 240 2-30 03-25 capsule by i ty of mg capsule 00:00: 00:00 mouth once [place] 00 :00 daily as Medical needed for Branch Constipati on. ferrous 2019-04- No [id number] 325mg Take 1 U nivers sulfate 325 2-30 03-25 tablet by it y of mg (65 mg 00:00: 00:00 [place] 00 :00 (two) Medical tablet times Branch daily. ibuprofen 2019-04- No [id number] 600mg Take 1 [facility] 600 mg 2-30 [...] 25/iron 1-25 mouth. ity of fum/folic/d 21:30: [place] [id number] Medical (-1 Branch ORAL) 2020- Yes Take by Univer s 25/iron 1-25 mouth. ity of fum/folic/d 21:30: [place] [address] Medical (-1 Branch ORAL) 2020- Yes Take by Univer s 25/iron 1-25 mouth. ity of fum/folic/d 21:30: [place] [address] Medical (-1 Branch ORAL) 2020- Yes Take by Univer s 25/iron 1-25 mouth. ity of fum/folic/d 21:30: [address] (-1 Branch ORAL) 2020- Yes Take by Univer s 25/iron 1-25 mouth. ity of fum/folic/d 21:30: [address] (-1 Branch ORAL) 2020- Yes Take by Univer s 25/iron 1-25 mouth. ity of fum/folic/d 21:30: [address] (-1 Branch ORAL) 2020- Yes Take by Univer s 25/iron 1-25 mouth. ity of fum/folic/d 21:30: [place] [address] Medical (-1 Branch ORAL) 2020- Yes Take by Univer s 25/iron 1-25 mouth. ity of fum/folic/d 21:30: [address] (-1 Branch ORAL) 2020- Yes Take by Univer s 25/iron 1-25 mouth. ity of fum/folic/d 21:30: [place] [address] Medical (-1 Branch ORAL) 2020- Yes Take by Univer s 25/iron 1-25 mouth. ity of fum/folic/d 21:30: [place] [id number] Medical (-1 Branch ORAL) PNV 2020- Yes [id number] Take 1 [facility] 102-iron-fo 0-20 TAB-CAP/M2 it y of late-dha 00:00: by mouth [place] (VITAFOL FE 00 daily. Medica l PLUS) 90 mg Branch iron- 1 mg-200 mg Cap PNV 2020- Yes [id number] Take 1 [facility] 102-iron-fo 0-20 TAB-CAP/M2 it y of late-dha 00:00: by mouth [place] (VITAFOL FE 00 daily. Medica l PLUS) 90 mg Branch iron- 1 mg-200 mg Cap PNV 2019-04 Yes [id number] Take 1 [facility] 102-iron-fo 0-20 TAB-CAP/M2 it y of late-dha 00:00: by mouth [place] (VITAFOL FE 00 daily. Medica l PLUS) 90 mg Branch iron- 1 mg-200 mg Cap PNV 2019-04 Yes [id number] Take 1 [facility] 102-iron-fo 0-20 TAB-CAP/M2 it y of late-dha 00:00: by mouth [place] (VITAFOL FE 00 daily. Medica l PLUS) 90 mg Branch iron- 1 mg-200 mg Cap PNV 2019-04 Yes [id number] Take 1 [facility] 102-iron-fo 0-20 TAB-CAP/M2 it y of late-dha 00:00: by mouth [place] (VITAFOL FE 00 daily. Medica l PLUS) 90 mg Branch iron- 1 mg-200 mg Cap PNV 2019-04 Yes [id number] Take 1 [facility] 102-iron-fo 0-20 TAB-CAP/M2 it y of late-dha 00:00: by mouth [place] (VITAFOL FE 00 daily. Medica l PLUS) 90 mg Branch iron- 1 mg-200 mg Cap PNV 2019-04 Yes [id number] Take 1 [facility] 102-iron-fo 0-20 TAB-CAP/M2 it y of late-dha 00:00: by mouth [place] (VITAFOL FE 00 daily. Medica l PLUS) 90 mg Branch iron- 1 mg-200 mg Cap PNV 2019-04 2020- No [id number] Take 1 Univer s 102-iron-fo 0-20 11-25 TAB-CAP/M2 i ty of late-dha 00:00: 00:00 [place] (VITAFOL FE 00 :00 daily. Medica l PLUS) 90 mg Branch iron- 1 mg-200 mg Cap PNV 2019-04 2020- No [id number] Take 1 Univer s 102-iron-fo 0-20 11-25 TAB-CAP/M2 i ty of late-dha 00:00: 00:00 [place] (VITAFOL FE 00 :00 daily. Medica l PLUS) 90 mg Branch iron- 1 mg-200 mg Cap PNV 2019-04 2020- No [id number] Take 1 Univer s 102-iron-fo 0-20 11-25 TAB-CAP/M2 i ty of late-dha 00:00: 00:00 [place] mouth [place] (VITAFOL FE 00 :00 daily. Medica l PLUS) 90 mg Branch iron- 1 mg-200 mg Cap metoclopram 2020-0 Yes [id number] 10mg Take 1 [facility] levi HCl 10 8-11 tablet by ity of mg tablet 00:00: mouth [place] 00 every 6 Medical (six) Branch hours as needed for Nausea and Vomiting (N/V). metoclopram 2020-0 Yes [id number] 10mg Take 1 [facility] levi HCl 10 8-11 tablet by ity of mg tablet 00:00: mouth [place] 00 every 6 Medical (six) Branch hours as needed for Nausea and Vomiting (N/V). metoclopram 2020-0 Yes [id number] 10mg Take 1 [facility] levi HCl 10 8-11 tablet by ity of mg tablet 00:00: mouth [place] 00 every 6 Medical (six) Branch hours as needed for Nausea and Vomiting (N/V). metoclopram 2020-0 Yes [id number] 10mg Take 1 [facility] levi HCl 10 8-11 tablet by ity of mg tablet 00:00: mouth [place] 00 every 6 Medical (six) Branch hours as needed for Nausea and Vomiting (N/V). metoclopram 2020-0 Yes [id number] 10mg Take 1 [facility] levi HCl 10 8-11 tablet by ity of mg tablet 00:00: mouth [place] 00 every 6 Medical (six) Branch hours as needed for Nausea and Vomiting (N/V). metoclopram 2020-0 Yes [id number] 10mg Take 1 [facility] levi HCl 10 8-11 tablet by ity of mg tablet 00:00: mouth [place] 00 every 6 Medical (six) Branch hours as needed for Nausea and Vomiting (N/V). metoclopram 2020-0 2020- No [id number] 10mg Take 1 [facility] levi HCl 10 [...] IV Medical Infusion, Branch ONCE, 1 dose, [facility] 11/28/19 at 1615, TUSHAR doxylamine- 2020-0 Yes [id number] Take 2 [facility] pyridoxine, 8-03 tabs by ity o f vit B6, 00:00: mouth [place]. [place] (DICLEGIS[place] 00 If nausea Medi dee 10-10 mg not Branch per tablet controlled may increase to max of 4 tabs daily-1 tab in am, 1 tab mid afternoon and 2 tabs qhs doxylamine- 2020-0 Yes [id number] Take 2 [facility] pyridoxine, 8-03 tabs by ity o f vit B6, 00:00: mouth [place]. [place] ([place]LE[place] 00 If nausea Medi dee 10-10 mg not Branch per tablet controlled may increase to max of 4 tabs daily-1 tab in am, 1 tab mid afternoon and 2 tabs qhs doxylamine- 2020-0 Yes [id number] Take 2 [facility] pyridoxine, 8-03 tabs by ity o f vit B6, 00:00: mouth [place]. [place] ([place]LE[place] 00 If nausea Medi dee 10-10 mg not Branch per tablet controlled may increase to max of 4 tabs daily-1 tab in am, 1 tab mid afternoon and 2 tabs qhs doxylamine- 2020-0 Yes [id number] Take 2 [facility] pyridoxine, 8-03 tabs by ity o f vit B6, 00:00: mouth [place]. [place] ([place]LE[place] 00 If nausea Medi dee 10-10 mg not Branch per tablet controlled may increase to max of 4 tabs daily-1 tab in am, 1 tab mid afternoon and 2 tabs qhs doxylamine- 2020-0 Yes [id number] Take 2 [facility] pyridoxine, 8-03 tabs by ity o f vit B6, 00:00: mouth [place]. [place] ([place]LE[place] 00 If nausea Medi dee 10-10 mg not Branch per tablet controlled may increase to max of 4 tabs daily-1 tab in am, 1 tab mid afternoon and 2 tabs qhs doxylamine- 2020-0 Yes [id number] Take 2 [facility] pyridoxine, 8-03 tabs by ity o f vit B6, 00:00: mouth [facility]. [place] ([place]LE[place] 00 If nausea Medi dee 10-10 mg not Branch per tablet controlled may increase to max of 4 tabs daily-1 tab in am, 1 tab mid afternoon and 2 tabs qhs doxylamine- 2020-0 Yes [id number] Take 2 [facility] pyridoxine, 8-03 tabs by ity o f vit B6, 00:00: mouth [place]. [place] ([place]LE[place] 00 If nausea Medi dee 10-10 mg not Branch per tablet controlled may increase to max of 4 tabs daily-1 tab in am, 1 tab mid afternoon and 2 tabs qhs doxylamine- 2020-0 Yes [id number] Take 2 [facility] pyridoxine, 8-03 tabs by ity o f vit B6, 00:00: mouth [place]. [place] ([place]LE[place] 00 If nausea Medi dee 10-10 mg not Branch per tablet controlled may increase to max of 4 tabs daily-1 tab in am, 1 tab mid afternoon and 2 tabs qhs doxylamine- 2020-0 2020- No [id number] Take 2 [facility] pyridoxine, 8-03 10-20 tabs by ity of vit B6, 00:00: 00:00 mouth q[facility]. [place] (DICLEGIS) 00 :00 If nausea Medi dee 10-10 mg not Branch per tablet controlled may increase to max of 4 tabs daily-1 tab in am, 1 tab mid afternoon and 2 tabs qhs ampicillin 2020-0 2020- No [id number] 500mg Take 1 [facility] 500 mg 7-13 07-24 capsule by ity of capsule 00:00: 04:59 mouth 4 [place] 00 :00 (four) Medical times Branch daily for 10 days. ampicillin 2019-0 2020- No [id number] 500mg Take 1 [facility] 500 mg 7-13 07-24 capsule by ity of capsule 00:00: 04:59 mouth 4 [place] 00 :00 (four) Medical times Branch daily for 10 days. proMETHazin 2020-0 Yes [id number] 25mg Take 1 Univers e 25 mg 7-09 tablet by ity of tablet 00:00: mouth [place] 00 every 6 Medical (six) Branch hours as needed for Nausea and Vomiting (N/V). proMETHazin 2020-0 Yes [id number] 25mg Take 1 [facility] e 25 mg 7-09 tablet by ity of tablet 00:00: mouth [place] 00 every 6 Medical (six) Branch hours as needed for Nausea and Vomiting (N/V). proMETHazin 2020-0 Yes [id number] 25mg Take 1 [facility] e 25 mg 7-09 tablet by ity of tablet 00:00: mouth [place] 00 every 6 Medical (six) Branch hours as needed for Nausea and Vomiting (N/V). proMETHazin 2020-0 Yes [id number] 25mg Take 1 [facility] e 25 mg 7-09 tablet by ity of tablet 00:00: mouth [place] 00 every 6 Medical (six) Branch hours as needed for Nausea and Vomiting (N/V). proMETHazin 2020-0 Yes [id number] 25mg Take 1 [facility] e 25 mg 7-09 tablet by ity of tablet 00:00: mouth [place] 00 every 6 Medical (six) Branch hours as needed for Nausea and Vomiting (N/V). proMETHazin 2020-0 Yes [id number] 25mg Take 1 [facility] e 25 mg 7-09 tablet by ity of tablet 00:00: mouth [place] 00 every 6 Medical (six) Branch hours as needed for Nausea and Vomiting (N/V). proMETHazin 2020-0 Yes [id number] 25mg Take 1 [facility] e 25 mg 7-09 tablet by ity of tablet 00:00: mouth [place] 00 every 6 Medical (six) Branch hours as needed for Nausea and Vomiting (N/V). proMETHazin 2020-0 Yes [id number] 25mg Take 1 [facility] e 25 mg 7-09 tablet by ity of tablet 00:00: mouth [place] 00 every 6 Medical (six) Branch hours as needed for Nausea and Vomiting (N/V). proMETHazin 2020-0 Yes [id number] 25mg Take 1 [facility] e 25 mg 7-09 tablet by ity of tablet 00:00: mouth [place] 00 every 6 Medical (six) Branch hours as needed for Nausea and Vomiting (N/V). proMETHazin 2020-0 Yes [id number] 25mg Take 1 [facility] e 25 mg 7-09 tablet by ity of tablet 00:00: mouth [place] 00 every 6 Medical (six) Branch hours as needed for Nausea and Vomiting (N/V). proMETHazin 2020-0 Yes [id number] 25mg Take 1 [facility] e 25 mg 7-09 tablet by ity of tablet 00:00: mouth [place] 00 every 6 Medical (six) Branch hours as needed for Nausea and Vomiting (N/V). proMETHazin 2020-0 Yes [id number] 25mg Take 1 [facility] e 25 mg 7-09 tablet by ity of tablet 00:00: mouth [place] 00 every 6 Medical (six) Branch hours as needed for Nausea and Vomiting (N/V). proMETHazin 2020-0 Yes [id number] 25mg Take 1 [facility] e 25 mg 7-09 tablet by ity of tablet 00:00: mouth [place] 00 every 6 Medical (six) Branch hours as needed for Nausea and Vomiting (N/V). proMETHazin 2020-0 Yes [id number] 25mg Take 1 [facility] e 25 mg 7-09 tablet by ity of tablet 00:00: mouth [place] 00 every 6 Medical (six) Branch hours as needed for Nausea and Vomiting (N/V). proMETHazin 2020-0 Yes [id number] 25mg Take 1 [facility] e 25 mg 7-09 tablet by ity of tablet 00:00: mouth [place] 00 every 6 Medical (six) Branch hours as needed for Nausea and Vomiting (N/V). proMETHazin 2020-0 Yes [id number] 25mg Take 1 [facility] e 25 mg 7-09 tablet by ity of tablet 00:00: mouth [place] 00 every 6 Medical (six) Branch hours as needed for Nausea and Vomiting (N/V). proMETHazin 2020-0 Yes [id number] 25mg Take 1 [facility] e 25 mg 7-09 tablet by ity of tablet 00:00: mouth [place] 00 every 6 Medical (six) Branch hours as needed for Nausea and Vomiting (N/V). proMETHazin 2020-0 2020- No [id number] 25mg Take 1 [facility] e 25 mg 7-09 10-20 tablet by ity of tablet 00:00: 00:00 mouth [place] 00 :00 every 6 Medical (six) Branch hours as needed for Nausea and Vomiting (N/V). Acyclovir Acyclovir 2017- Yes Hos[place] 1 tablet Common 7-25 [facility] 00:00: - [facility] 00 [facility] butalbital- 2017-0 Yes 1{tbl} Take [...] No known No Univers medications ity of [facility] Immunizations Ordered Filled Immunization Date Status Comments [facility] e Immunization Name Name TDAP 2020-02-14 Completed University of 00:00:00 [facility] Influenza Virus 2020-02-14 Completed Universit y of Vaccine Quad .5 mL 00:00:00 [facility] 6+ MO Branch TDAP 2020-02-14 Completed University of 00:00:00 [facility] Influenza Virus 2020-02-14 Completed Universit y of Vaccine Quad .5 mL 00:00:00 [facility] IM 6+ MO Branch TDAP 2020-02-14 Completed University of 00:00:00 [facility] Influenza Virus 2020-02-14 Completed Universit y of Vaccine Quad .5 mL 00:00:00 [facility] 6+ MO Branch TDAP 2020-02-14 Completed University of 00:00:00 [facility] Influenza Virus 2020-02-14 Completed Universit y of Vaccine Quad .5 mL 00:00:00 [facility] 6+ MO Branch TDAP 2020-02-14 Completed [facility] of 00:00:00 [facility] [place] Influenza Virus 2020-02-14 Completed Universit y of Vaccine Quad .5 mL 00:00:00 [facility] 6+ MO Branch TDAP 2020-02-14 Completed University of 00:00:00 [facility] Influenza Virus 2020-02-14 Completed Universit y of Vaccine Quad .5 mL 00:00:00 [facility] 6+ MO Branch TDAP 2020-02-14 Completed University of 00:00:00 [facility] Influenza Virus 2020-02-14 Completed Universit y of Vaccine Quad .5 mL 00:00:00 [facility] 6+ MO Branch TDAP 2020-02-14 Completed University of 00:00:00 [facility] Influenza Virus 2020-02-14 Completed Universit y of Vaccine Quad .5 mL 00:00:00 [facility] 6+ MO Branch TDAP 2020-02-14 Completed University of 00:00:00 [facility] Influenza Virus 2020-02-14 Completed Universit y of Vaccine Quad .5 mL 00:00:00 [facility] 6+ MO Branch TDAP 2020-02-14 Completed University of 00:00:00 [facility] Influenza Virus 2020-02-14 Completed Universit y of Vaccine Quad .5 mL 00:00:00 [facility] 6+ MO Branch TDAP 2020-02-14 Completed University of 00:00:00 [facility] Influenza Virus 2020-02-14 Completed Universit y of Vaccine Quad .5 mL 00:00:00 [facility] 6+ MO Branch TDAP 2020-02-14 Completed University of 00:00:00 [facility] Influenza Virus 2020-02-14 Completed Universit y of Vaccine Quad .5 mL 00:00:00 [facility] 6+ MO Branch TDAP 2020-02-14 Completed University of 00:00:00 [facility] Influenza Virus 2020-02-14 Completed Universit y of Vaccine Quad .5 mL 00:00:00 [facility] 6+ MO Branch TDAP 2020-02-14 Completed University of 00:00:00 [facility] Influenza Virus 2020-02-14 Completed Universit y of Vaccine Quad .5 mL 00:00:00 [facility] 6+ MO Branch TDAP 2020-02-14 Completed University of 00:00:00 [facility] [place] Influenza Virus 2020-02-14 Completed Universit y of Vaccine Quad .5 mL 00:00:00 [facility] 6+ MO Branch TDAP 2020-02-14 Completed University of 00:00:00 [facility] [place] Influenza Virus 2020-02-14 Completed Universit y of Vaccine Quad .5 mL 00:00:00 [facility] 6+ MO Branch TDAP 2020-02-14 Completed University of 00:00:00 [facility] [place] Influenza Virus 2020-02-14 Completed Universit y of Vaccine Quad .5 mL 00:00:00 [facility] 6+ MO Branch TDAP 2020-02-14 Completed University of 00:00:00 [facility] Influenza Virus 2020-02-14 Completed Universit y of Vaccine Quad .5 mL 00:00:00 [facility] 6+ MO Branch TDAP 2020-02-14 Completed University of 00:00:00 [facility] Influenza Virus 2020-02-14 Completed Universit y of Vaccine Quad .5 mL 00:00:00 [facility] 6+ MO Branch TDAP 2020-02-14 Completed University of 00:00:00 [facility] Influenza Virus 2020-02-14 Completed Universit y of Vaccine Quad .5 mL 00:00:00 [facility] 6+ MO Branch TDAP 2020-02-14 Completed University of 00:00:00 [facility] Influenza Virus 2020-02-14 Completed Universit y of Vaccine Quad .5 mL 00:00:00 [facility] 6+ MO Branch TDAP 2020-02-14 Completed University of 00:00:00 [facility] Influenza Virus 2020-02-14 Completed Universit y of Vaccine Quad .5 mL 00:00:00 [facility] 6+ MO Branch TDAP 2020-02-14 Completed University of 00:00:00 [facility] [place] Influenza Virus 2020-02-14 Completed Universit y of Vaccine Quad .5 mL 00:00:00 [facility] 6+ MO Branch TDAP 2020-02-14 Completed University of 00:00:00 [facility] Influenza Virus 2020-02-14 Completed Universit y of Vaccine Quad .5 mL 00:00:00 [facility] 6+ MO Branch TDAP 2020-02-14 Completed University of 00:00:00 [facility] Influenza Virus 2020-02-14 Completed Universit y of Vaccine Quad .5 mL 00:00:00 [facility] IM 6+ MO Branch TDAP 2020-02-14 Completed University of 00:00:00 [facility] Influenza Virus 2020-02-14 Completed Universit y of Vaccine Quad .5 mL 00:00:00 [place] [facility] IM 6+ MO Branch TDAP 2020-02-14 Completed University of 00:00:00 [facility] Influenza Virus 2020-02-14 Completed Universit y of Vaccine Quad .5 mL 00:00:00 [facility] IM 6+ MO Branch TDAP 2020-02-14 Completed University of 00:00:00 [facility] Influenza Virus 2020-02-14 Completed Universit y of Vaccine Quad .5 mL 00:00:00 [facility] IM 6+ MO Branch TDAP 2020-02-14 Completed University of 00:00:00 [facility] [place] Influenza Virus 2020-02-14 Completed Universit y of Vaccine Quad .5 mL 00:00:00 [facility] 6+ MO Branch TDAP 2020-02-14 Completed University of 00:00:00 [facility] [place] Influenza Virus 2020-02-14 Completed Universit y of Vaccine Quad .5 mL 00:00:00 [facility] 6+ MO Branch TDAP 2020-02-14 Completed University of 00:00:00 [facility] Influenza Virus 2020-02-14 Completed Universit y of Vaccine Quad .5 mL 00:00:00 [facility] 6+ MO Branch TDAP 2020-02-14 Completed University of 00:00:00 [facility] [place] Influenza Virus 2020-02-14 Completed Universit y of Vaccine Quad .5 mL 00:00:00 [facility] 6+ MO Branch TDAP 2020-02-14 Completed University of 00:00:00 [facility] Influenza Virus 2020-02-14 Completed Universit y of Vaccine Quad .5 mL 00:00:00 [facility] 6+ MO Branch TDAP 2020-02-14 Completed University of 00:00:00 [facility] Influenza Virus 2020-02-14 Completed Universit y of Vaccine Quad .5 mL 00:00:00 [facility] IM 6+ MO Branch TDAP 2020-02-14 Completed University of 00:00:00 [facility] Influenza Virus 2020-02-14 Completed Universit y of Vaccine Quad .5 mL 00:00:00 [facility] IM 6+ MO Branch TDAP 2020-02-14 Completed University of 00:00:00 [facility] Influenza Virus 2020-02-14 Completed Universit y of Vaccine Quad .5 mL 00:00:00 [facility] IM 6+ MO Branch TDAP 2020-02-14 Completed University of 00:00:00 [facility] Influenza Virus 2020-02-14 Completed Universit y of Vaccine Quad .5 mL 00:00:00 [facility] IM 6+ MO Branch Influenza Virus 2015-02-01 Completed Universit y of Vaccine Quad IM 3+ 00:00:00 [facility] Influenza Virus 2015-02-01 Completed Universit y of Vaccine Quad IM 3+ 00:00:00 [facility] Influenza Virus 2015-02-01 Completed Universit y of Vaccine Quad IM 3+ 00:00:00 [facility] Influenza Virus 2015-02-01 Completed Universit y of Vaccine Quad IM 3+ 00:00:00 [facility] Influenza Virus 2015-02-01 Completed Universit y of Vaccine Quad IM 3+ 00:00:00 [facility] Influenza Virus 2015-02-01 Completed Universit y of Vaccine Quad IM 3+ 00:00:00 [facility] Influenza Virus 2015-02-01 Completed Universit y of Vaccine Quad IM 3+ 00:00:00 [facility] Influenza Virus 2015-02-01 Completed Universit y of Vaccine Quad IM 3+ 00:00:00 [facility] Influenza Virus 2015-02-01 Completed Universit y of Vaccine Quad IM 3+ 00:00:00 [facility] Influenza Virus 2015-02-01 Completed Universit y of Vaccine Quad IM 3+ 00:00:00 [facility] Influenza Virus 2015-02-01 Completed Universit y of Vaccine Quad IM 3+ 00:00:00 [facility] Influenza Virus 2015-02-01 Completed Universit y of Vaccine Quad IM 3+ 00:00:00 [facility] Influenza Virus 2015-02-01 Completed Universit y of Vaccine Quad IM 3+ 00:00:00 [facility] Influenza Virus 2015-02-01 Completed Universit y of Vaccine Quad IM 3+ 00:00:00 [facility] Influenza Virus 2015-02-01 Completed Universit y of Vaccine Quad IM 3+ 00:00:00 [facility] Influenza Virus 2015-02-01 Completed Universit y of Vaccine Quad IM 3+ 00:00:00 [facility] Influenza Virus 2015-02-01 Completed Universit y of Vaccine Quad IM 3+ 00:00:00 [facility] Influenza Virus 2015-02-01 Completed Universit y of Vaccine Quad IM 3+ 00:00:00 [facility] Influenza Virus 2015-02-01 Completed Universit y of Vaccine Quad IM 3+ 00:00:00 [facility] Influenza Virus 2015-02-01 Completed Universit y of Vaccine Quad IM 3+ 00:00:00 [facility] Influenza Virus 2015-02-01 Completed Universit y of Vaccine Quad IM 3+ 00:00:00 [facility] Influenza Virus 2015-02-01 Completed Universit y of Vaccine Quad IM 3+ 00:00:00 [facility] [facility] [place] Influenza Virus 2015-02-01 Completed [facility]it y [facility] IM 3+ 00:00:00 [facility] [place] Influenza Virus 2015-02-01 Completed [facility]it y [facility] IM 3+ 00:00:00 [facility] [place] Influenza Virus 2015-02-01 Completed [facility]it y [facility] IM 3+ 00:00:00 [facility] [place] Influenza Virus 2015-02-01 Completed [facility] IM 3+ 00:00:00 [facility] [place] Influenza Virus 2015-02-01 Completed [facility]it y [facility] IM 3+ 00:00:00 [facility] [place] Influenza Virus 2015-02-01 Completed [facility]it y of Vaccine [facility] IM 3+ 00:00:00 [facility] Influenza Virus 2015-02-01 Completed Universit y of Vaccine [facility] IM 3+ 00:00:00 [facility] [place] Influenza Virus 2015-02-01 Completed [facility]it y [facility]ine [facility] IM 3+ 00:00:00 [facility] [place] Influenza Virus 2015-02-01 Completed [facility]it y [facility] IM 3+ 00:00:00 [facility] [place] Influenza Virus 2015-02-01 Completed [facility]it y [facility]ine [facility] IM 3+ 00:00:00 [facility] [place] Influenza Virus 2015-02-01 Completed [facility]it [facility] IM 3+ 00:00:00 [facility] [place] Influenza Virus 2015-02-01 Completed [facility]it y [facility]ine [facility] IM 3+ 00:00:00 [facility] [place] Influenza Virus 2015-02-01 Completed [facility]it y [facility]ine [facility] IM 3+ 00:00:00 [facility] [place] Influenza Virus 2015-02-01 Completed [facility]it y [facility] IM 3+ 00:00:00 [facility] [place] Influenza Virus 2015-02-01 Completed [facility]it [facility] IM 3+ 00:00:00 [facility] [place] Influenza Virus 2015-02-01 Completed [facility]ine [facility] IM 3+ 00:00:00 [facility] [place] Influenza Virus 2015-02-01 Completed [facility]it [facility]ine [facility] IM 3+ 00:00:00 [facility] [place] Influenza Virus 2015-02-01 Completed [facility]ine [facility] IM 3+ 00:00:00 [facility] [place] Influenza Virus 2015-02-01 Completed [facility] y [facility] IM 3+ 00:00:00 [facility] [place] Influenza Virus 2015-02-01 Completed [facility]ine [facility] IM 3+ 00:00:00 [facility] [place] Influenza Virus 2015-02-01 Completed [facility] IM 3+ 00:00:00 [facility] [place] Influenza Virus 2015-02-01 Completed [facility]ine [facility] IM 3+ 00:00:00 [facility] [place] Influenza Virus 2015-02-01 Completed [facility] IM 3+ 00:00:00 [facility] [place] Influenza Virus 2015-02-01 Completed [facility] Vaccine [facility] IM 3+ 00:00:00 [facility] [place] Influenza Virus 2015-02-01 Completed [facility]ine [facility] IM 3+ 00:00:00 [facility] [place] Influenza Virus 2015-02-01 Completed [facility]ine [facility] IM 3+ 00:00:00 [facility] [place] Influenza Virus 2015-02-01 Completed [facility]ine [facility] IM 3+ 00:00:00 [facility] [place] Influenza Virus 2015-02-01 Completed [facility] Vaccine [facility] IM 3+ 00:00:00 [facility] [place] Influenza Virus 2015-02-01 Completed [facility]it y [facility] Vaccine [facility] IM 3+ 00:00:00 [facility] [place] Influenza Virus 2015-02-01 Completed [facility]it y [facility] Vaccine [facility] IM 3+ 00:00:00 [facility] [place] Influenza Virus 2015-02-01 Completed [facility] Vaccine [facility] IM 3+ 00:00:00 [facility] [place] Influenza Virus 2015-02-01 Completed [facility]it [facility] Vaccine [facility] IM 3+ 00:00:00 [facility] [place] Vital Signs Vital Name Observation Time [...] 2020-08-13 13:47:00 38.22 kg/m2 [facility] Systolic blood 2020-08-13 13:47:00 121 [...] 2020-08-13 13:47:00 38.22 kg/m2 [facility] Systolic blood 2020-07-19 15:56:00 116 mm[Hg] Univer sity of pressure [facility] Diastolic blood 2020-07-19 15:56:00 69 mm[Hg] Unive rsity of pressure [facility] Heart rate 2020-07-19 15:56:00 73 /min [facility] Body temperature 2020-07-19 15:56:00 36.44 Jasmin Univ ersity [facility] Respiratory rate 2020-07-19 15:56:00 16 /min Univ ers[facility] Oxygen saturation in 2020-07-19 15:56:00 99 /min University of Arterial blood by [place] [employer] [facility] Pulse oximetry Branch Body weight 2020-07-19 08:45:00 126.554 kg [facility] BMI 2020-07-19 08:45:00 38.93 kg/m2 [facility] Body height 2020-07-18 16:47:00 180.3 cm [facility] Systolic blood 2020-07-10 08:00:00 120 mm[Hg] Univer sity of [facility] Diastolic blood 2020-07-10 08:00:00 78 mm[Hg] Unive rsity of pressure [facility] Heart rate 2020-07-10 08:00:00 66 /min [facility] Respiratory rate 2020-07-10 08:00:00 18 /min Univ ersity [facility] Oxygen saturation in 2020-07-10 08:00:00 96 /min University of Arterial blood by [facility] Pulse oximetry Branch Body temperature 2020-07-10 05:53:00 36.56 Jasmin Univ ers[facility] Body weight 2020-07-10 05:53:00 122.925 kg [facility] BMI 2020-07-10 05:53:00 37.80 kg/m2 [facility] Heart rate 2020-06-08 04:18:00 59 /min [facility] Oxygen saturation in 2020-06-08 04:18:00 98 /min University of Arterial blood by [facility] Pulse oximetry Branch Systolic blood 2020-06-08 04:00:00 140 mm[Hg] Univer sity of [facility] Diastolic blood 2020-06-08 04:00:00 93 mm[Hg] Unive rsity of [facility] Respiratory rate 2020-06-08 04:00:00 19 /min Univ ersity [facility] Body temperature 2020-06-08 03:42:00 36.72 Jasmin [facility] Body weight 2020-06-08 03:42:00 122.925 kg [facility] BMI 2020-06-08 03:42:00 37.80 kg/m2 Universi ty of [facility] Systolic blood 2020-05-24 22:55:00 122 mm[Hg] Univer sity of pressure [facility] Diastolic blood 2020-05-24 22:55:00 81 mm[Hg] Unive rsity of pressure [facility] Heart rate 2020-05-24 22:55:00 64 /min Universi ty of [facility] Body temperature 2020-05-24 22:55:00 36.61 Jasmin Univ ersity of [facility] Body height 2020-05-24 22:55:00 180.3 cm Universi ty of [facility] Body weight 2020-05-24 22:55:00 124.286 kg [facility]i ty of [facility] BMI 2020-05-24 22:55:00 38.22 kg/m2 Universi ty of [facility] Systolic blood 2020-05-18 10:00:00 122 mm[Hg] Univer sity of pressure [facility] Diastolic blood 2020-05-18 10:00:00 75 mm[Hg] Unive rsity of [facility] Heart rate 2020-05-18 10:00:00 66 /min Universi ty of [facility] Respiratory rate 2020-05-18 10:00:00 14 /min [facility] Oxygen saturation in 2020-05-18 10:00:00 99 /min University of Arterial blood by [facility] Pulse oximetry Branch Body temperature 2020-05-18 07:07:00 36.22 Jasmin Univ ersity of [facility] Body weight 2020-05-18 07:07:00 122.471 kg [facility] [place] BMI 2020-05-18 07:07:00 37.66 kg/m2 Universi ty of [facility] Systolic blood 2020-05-02 20:24:00 125 mm[Hg] Univer sity of pressure [facility] Diastolic blood 2020-05-02 20:24:00 89 mm[Hg] Unive rsity of pressure [facility] Heart rate 2020-05-02 20:24:00 61 /min Universi ty of [facility] Body temperature 2020-05-02 20:24:00 37 Jasmin Univ ersity of [facility] Respiratory rate 2020-05-02 20:24:00 18 /min Univ ers[facility] Body weight 2020-05-02 20:24:00 125.646 kg [facility] BMI 2020-05-02 20:24:00 38.63 kg/m2 [facility] Systolic blood 2020-04-18 17:55:00 121 mm[Hg] Univer sity of [facility] Diastolic blood 2020-04-18 17:55:00 74 mm[Hg] Unive rsity of [facility] Heart rate 2020-04-18 17:55:00 78 /min [facility] Respiratory rate 2020-04-18 17:55:00 20 /min Univ ersity [facility] Body height 2020-04-18 17:55:00 180.3 cm [facility] Body weight 2020-04-18 17:55:00 134.174 kg [facility] BMI 2020-04-18 17:55:00 41.26 kg/m2 [facility] Systolic blood 2020-04-16 21:27:00 118 mm[Hg] Univer sity of [facility] Diastolic blood 2020-04-16 21:27:00 71 mm[Hg] Unive rsity of [facility] Heart rate 2020-04-16 21:27:00 80 /min [facility] Body temperature 2020-04-16 21:27:00 36.33 Jasmin Univ [facility] Respiratory rate 2020-04-16 21:27:00 16 /min Univ [facility] Body height 2020-04-16 21:27:00 180.3 cm [facility] Body weight 2020-04-16 21:27:00 134.99 kg [facility] BMI 2020-04-16 21:27:00 41.51 kg/m2 [facility] Systolic blood 2020-04-12 21:38:00 123 mm[Hg] Univer sity of [facility] Diastolic blood 2020-04-12 21:38:00 80 mm[Hg] Unive rsity of [facility] Heart rate 2020-04-12 21:38:00 89 /min [facility] Body temperature 2020-04-12 21:38:00 36.83 Jasmin [facility] Respiratory rate 2020-04-12 21:38:00 18 /min Univ ersity [facility] Body height 2020-04-12 21:38:00 180.3 cm [facility] Body weight 2020-04-12 21:38:00 135.081 kg [facility] BMI 2020-04-12 21:38:00 41.53 kg/m2 [facility] Systolic blood 2020-03-29 21:46:00 95 mm[Hg] Univer sity of [facility] Diastolic blood 2020-03-29 21:46:00 55 mm[Hg] Unive rsity of [facility] Heart rate 2020-03-29 21:46:00 83 /min [facility] Body temperature 2020-03-29 21:46:00 36.94 Jasmin [facility] Respiratory rate 2020-03-29 21:46:00 18 /min Univ ersity [facility] Body height 2020-03-29 21:46:00 180.3 cm [facility] Body weight 2020-03-29 21:46:00 134.265 kg [facility] BMI 2020-03-29 21:46:00 41.28 kg/m2 [facility] Systolic blood 2020-03-21 21:28:00 105 mm[Hg] Univer sity of [facility] Diastolic blood 2020-03-21 21:28:00 71 mm[Hg] Unive rsity of [facility] Heart rate 2020-03-21 21:28:00 83 /min [facility] Body temperature 2020-03-21 21:28:00 36.67 Jasmin [facility] Respiratory rate 2020-03-21 21:28:00 16 /min Univ ersity [facility] Body height 2020-03-21 21:28:00 180.3 cm [facility] Body weight 2020-03-21 21:28:00 133.085 kg [facility] BMI 2020-03-21 21:28:00 40.92 kg/m2 [facility] Systolic blood 2020-03-14 18:01:00 112 mm[Hg] Univer sity of [facility] Diastolic blood 2020-03-14 18:01:00 71 mm[Hg] Unive rsity of [facility] Heart rate 2020-03-14 18:01:00 73 /min [facility] Body temperature 2020-03-14 18:01:00 36.5 Jasmin [facility] Respiratory rate 2020-03-14 18:01:00 18 /min Univ ersity [facility] Body height 2020-03-14 18:01:00 180.3 cm [facility] Body weight 2020-03-14 18:01:00 132.904 kg [facility] BMI 2020-03-14 18:01:00 40.87 kg/m2 [facility] Systolic blood 2020-02-14 16:18:00 110 mm[Hg] Univer sity of [facility] Diastolic blood 2020-02-14 16:18:00 73 mm[Hg] Unive rsity of pressure [facility] Heart rate 2020-02-14 16:18:00 79 /min [facility] Body temperature 2020-02-14 16:18:00 36.94 Jasmin Univ [facility] Respiratory rate 2020-02-14 16:18:00 18 /min Univ ersity [facility] Body height 2020-02-14 16:18:00 175.3 cm [facility] Body weight 2020-02-14 16:18:00 128.822 kg [facility] BMI 2020-02-14 16:18:00 41.94 kg/m2 [facility] Systolic blood 2019-12-06 16:20:00 126 mm[Hg] Univer sity of [facility] Diastolic blood 2019-12-06 16:20:00 80 mm[Hg] Unive rsity of [facility] Heart rate 2019-12-06 16:20:00 99 /min [facility] Body temperature 2019-12-06 16:20:00 37.17 Jasmin Univ [facility] Respiratory rate 2019-12-06 16:20:00 18 /min Univ [facility] Body height 2019-12-06 16:20:00 180.3 cm [facility] [place] Body weight 2019-12-06 16:20:00 124.286 kg [facility] BMI 2019-12-06 16:20:00 38.22 kg/m2 [facility] Systolic blood 2019-11-28 23:20:00 136 mm[Hg] Univer sity of pressure [facility] Diastolic blood 2019-11-28 23:20:00 76 mm[Hg] Unive rsity of pressure [facility] Heart rate 2019-11-28 23:20:00 81 /min Universi ty of [facility] Respiratory rate 2019-11-28 23:20:00 18 /min Univ ersity of [facility] Oxygen saturation in 2019-11-28 23:20:00 95 /min [facility] Arterial blood by [facility] Pulse oximetry Branch Body temperature 2019-11-28 20:43:00 37.28 Jasmin Univ ersity of [facility] Body height 2019-11-28 20:43:00 180.3 cm [facility] [place] Body weight 2019-11-28 20:43:00 122.471 kg Universi ty of [facility] BMI 2019-11-28 20:43:00 37.66 kg/m2 Universi ty of [facility] Systolic blood 2019-11-03 14:20:00 134 mm[Hg] Univer sity of pressure [facility] Diastolic blood 2019-11-03 14:20:00 82 mm[Hg] Unive rsity of pressure [facility] Heart rate 2019-11-03 14:20:00 92 /min Universi ty of [facility] Body temperature 2019-11-03 14:20:00 36.67 Jasmin Univ ersity of [facility] Respiratory rate 2019-11-03 14:20:00 16 /min Univ ersity of [facility] Body height 2019-11-03 14:20:00 180.3 cm [facility] Body weight 2019-11-03 14:20:00 125.363 kg [facility] BMI 2019-11-03 14:20:00 38.55 kg/m2 [facility] ty of [facility] Procedures Procedure Date / Time Performing Clinician Source Performed [place] TIME OR 2020-07-18 20:03:05 [facility] LAPAROSCOPIC 2020-07-18 17:51:00 [facility] CHOLE[facility]OM[facility] Medical Branch US ABDOMEN LIMITED 2020-07-18 13:22:57 Belén Crespo [facility] COVID-19 (ID NOW RAPID 2020-07-18 12:13:00 Roshan [place] [facility] TESTING) Medical Branch CT ABDOMEN PELVIS W 2020-07-18 11:51:38 Singer [facility] CONTRAST [facility] Branch POCT TEST 2020-07-18 11:36:00 Singer [facility] LIPASE 2020-07-18 11:26:00 Singer [facility] BILI UNCONJUGATED/BILI 2020-07-18 11:26:00 [place]han [place] [facility] CONJUG [facility] COMP. METABOLIC PANEL 2020-07-18 11:26:00 Roshan [facility] ([id number]) [facility] CBC WITH DIFF 2020-07-18 11:26:00 Singer [facility] URINALYSIS 2020-07-18 11:26:00 Singer [facility] CONSENT/REFUSAL FOR 2020-07-18 11:10:36 Doctor Unassrichie, [facility] DIAGNOSIS AND TREATMENT [place] [facility] CT ABDOMEN PELVIS W 2020-07-10 07:05:30 Matthias Bedolla [facility] CONTRAST [facility] Branch LIPASE 2020-07-10 06:16:00 Matthias [facility] COMP. METABOLIC PANEL 2020-07-10 06:16:00 Matthias Bedolla [facility] ([id number]) [facility] CBC WITH DIFF 2020-07-10 06:16:00 Matthias [facility] URINALYSIS 2020-07-10 06:16:00 Matthias [facility] POCT TEST 2020-07-10 06:00:00 Matthias Bedolla [facility] NOTICE OF PRIVACY 2020-07-10 05:38:40 Doctor Unassigned, [facility] [place] [facility] CONSENT/REFUSAL FOR 2020-07-10 05:38:26 Doctor Unassrichie, [facility] DIAGNOSIS AND TREATMENT [place] [facility] NOTICE OF PRIVACY 2020-06-08 03:37:21 Doctor Unassigned, [facility] [place] [facility] CONSENT/REFUSAL FOR 2020-06-08 03:37:05 Doctor Unassrichie [facility] DIAGNOSIS AND TREATMENT [place] [facility] CONSENT/REFUSAL FOR 2020-06-08 03:37:02 Doctor Unassrichie [facility] DIAGNOSIS AND TREATMENT [place] [facility] POCT TEST 2020-05-24 00:00:00 Ladonna Leyva [facility] CT CHEST PULMONARY 2020-05-18 08:55:26 Ekta Morse [facility] ANGIOGRAM Medical Branch LIPASE 2020-05-18 07:51:00 Ekta Morse [facility] TROPONIN I 2020-05-18 07:51:00 Ekta Morse [facility] HEPATIC FUNCTION PANEL 2020-05-18 07:51:00 Ekta Morse [facility] ([id number]) (ALB,T.PRO,BILI Medical Branch T,BU/BC,ALT,AST,ALK PHOS) BASIC METABOLIC PANEL (NA, 2020-05-18 07:51:00 Ekta Morse [facility] K, CL, CO2, GLUCOSE, BUN, Medica l Branch CREATININE, CA) CBC WITH DIFF 2020-05-18 07:51:00 Ekta Morse [facility] NOTICE OF PRIVACY 2020-05-18 07:05:35 Doctor Jasmynssrichie, [facility] [place] [facility] CONSENT/REFUSAL FOR 2020-05-18 07:04:19 Doctor Kris [facility] DIAGNOSIS AND TREATMENT [place] [facility] [place] CONSENT/REFUSAL FOR 2020-05-18 07:04:14 Doctor Kris [facility] DIAGNOSIS AND TREATMENT [place] [facility] [place] BIOPHYSICAL PROFILE 2020-04-18 18:32:22 Rishi Singh [facility] NON-STRESS TEST 2020-04-17 01:03:44 Ladonna Leyva [facility] POCT URINALYSIS W/O 2020-04-16 00:00:00 Ladonna Leyva [facility] SPECIFIC GRAVITY Medical Branch NON-STRESS TEST 2020-04-13 01:37:29 Ladonna Leyva [facility] NON-STRESS TEST 2020-03-29 22:00:32 Darnell [facility] NON-STRESS TEST 2020-03-21 22:08:58 Darnell Ruy [facility] NON-STRESS TEST 2020-03-21 22:06:45 Ladonna Leyva [facility] SECOND AND THIRD TRIMESTER 2020-03-09 19:49:00 [facility] 2020-03-01 19:32:00 [facility] FLU VACC ([id number]), 6+ 2020-02-14 17:05:03 [facility] IM, QUAD Medical Branch TDAP VACCINE, >11 YRS, IM 2020-02-14 16:44:57 [facility] SECOND AND THIRD TRIMESTER 2020-01-05 21:19:00 Ladonna Le[facility] SECOND AND THIRD TRIMESTER 2020-01-05 20:51:00 Ladonna Le[facility]va [facility] SECOND AND THIRD TRIMESTER 2020-01-05 20:44:00 Ladonna Leyva U [facility] CONSENT TO CONTACT FOR 2019-12-06 16:09:25 [facility] [place] [facility] h URINALYSIS 2019-11-28 23:13:00 Matthias [facility] COMP. METABOLIC PANEL 2019-11-28 21:47:00 Matthias Bedolla [facility] ([id number]) [facility] [place] CBC WITH DIFF 2019-11-28 21:47:00 Matthias [facility] NOTICE OF PRIVACY 2019-11-28 20:29:30 Doctor Unassigned, [facility] PRACTICES [place] [facility] CONSENT/REFUSAL FOR 2019-11-28 20:29:18 Doctor Unassigned, [facility]ive [facility] DIAGNOSIS AND TREATMENT [place] [facility] POCT URINALYSIS W/O 2019-11-03 14:11:00 Kelsey Wall Uni versity [facility] SPECIFIC GRAVITY [facility] POCT TEST 2019-11-03 14:10:00 Kelsey [facility] Encounters Start End Encounter Admission Attending Care Care Encounter Source Date/Time Date/Time Type Type Clinicians Facility Department ID 2021-02-24 Emergency [facility] [id number] Univers 08:03:59 ity of [facility] 2021-02-24 Emergency [facility] [id number] Univers 06:12:16 ity of [facility] 2021-02-23 Emergency [facility] [id number] Univers 23:13:52 ity of [facility] 2021-02-23 Emergency [facility] [id number] Univers 18:44:48 ity of [facility] 2021-02-23 Emergency [facility] [id number] Univers 14:23:18 it of [facility] 2021-04-26 2021-04-26 Laboratory Only, Ang Db Test [facility] 1.2.8 [id number] Univers 13:00:00 13:15:00 Only [facility] [id number] Cee [id number] Kostas as ROLANDO?BLEA [phone] [address] MEDICAL OFFICE BUILDING 2021-04-26 2021-04-26 Outpatient R MATTEO [facility] [id number] Univers 13:00:00 13:00:00 ELDER [facility] 2021-04-26 2021-04-26 Outpatient R MATTEO [facility] [id number] Univers 12:50:00 12:50:00 [facility] 2020-08-13 2020-08-[address] [facility] [id number] 08:41:30 09:13:07 Visit Belén Murillo [id number] [place] [id number] Professio [id number] nal 188 [facility] 2020-08-13 2020-08-[address] [facility] [id number] Univers 08:41:30 09:13:07 Visit Belén Lidia [id number] i ty [id number] [phone] Md dical nal 188 Branch [facility] 2020-08-13 2020-08-13 [facility] [id number] Univers 08:45:00 08:45:00 BELÉN becerril [facility] 2020-08-02 2020-08-02 Outpatient [facility] [id number] Univers 10:00:00 10:00:00 LORE cabrera [facility] 2020-07-18 2020-07-19 Emergency Roshan [place] [facility] [id number] Univers 06:12:00 11:15:00 Michael Agarwal [id number] ity of [place] [id number] [facility] [id number] [facility] 081 [place] 2020-07-17 2020-07-17 Patient [facility] [id number] Univers 00:00:00 00:00:00 Outreach Jonny [facility] [id number] i ty of [facility] [id number] [id number] Md dical 388 Branch 2020-07-10 2020-07-10 Emergency [facility] [id number] Univers 00:45:00 03:37:00 Matthias Murillo [id number] i [id number] [id number] [facility] 084 Branch 2020-07-10 2020-07-10 Orders Doctor SCHAEFFER [id number] Univers 00:00:00 00:00:00 Only Unassigned, JONE [id number] [email or web address] [id number] Kostas as [id number] [facility] 009 [place] 2020-06-21 2020-06-21 Outpatient R DARNELL [facility] [id number] Univers 13:00:00 13:00:00 RUY ity [facility] 2020-06-16 2020-06-[address] [facility] 1.2.847.520 [id number] Univers 00:00:00 00:00:00 Ruy Murillo 350.1.13.10 i [place] [phone] [address] 2020-06-11 2020-06-11 Outpatient R [facility] [id number] Univers 13:00:00 13:00:00 ity of [facility] 2020-06-07 2020-06-[address] [facility] 1.2.351.083 [id number] Univers 21:44:00 23:54:00 Marissa Murillo 350.1.13.10 i [place] [phone] [facility] 084 [place] 2020-05-24 2020-05-[address] [facility] 1.2.990.677 [id number] Univers 16:32:42 17:20:48 Ruy Murillo 350.1.13.10 ity of [place] [phone] [address] 2020-05-24 2020-05-24 Outpatient R LADONNA LEYVA [facility] [id number] Univers 14:15:00 14:15:00 ity [facility] 2020-05-22 2020-05-22 Outpatient R SANDRA [facility] [id number] Univers 16:30:00 16:30:00 JOSHUA ity [facility] 2020-05-18 2020-05-[address] [facility] 1.2.840.114 [id number] Univers 01:25:00 04:52:00 Ekta Murillo 350.1.13.10 it[place] of [place] [phone] [facility] 084 [place] 2020-05-15 2020-05-15 Outpatient R JOSEMARCUS [facility] [id number] Univers 11:00:00 11:00:00 RUY ity [facility] 2020-05-02 2020-05-02 Nurse Nurse, [facility] 1.2.840.114 [id number] Univers 14:01:32 14:32:49 Visit GordonLadonna Moris Murillo 350.1.13.10 it[place] [facility] [phone] Md dical [facility] [address] [facility] 2020-05-02 2020-05-02 Outpatient R [facility] [id number] Univers 14:00:00 14:00:00 ity of [facility] 2020-04-30 2020-04-30 Outpatient R [facility] [id number] Univers 10:00:00 10:00:00 ity of [facility] 2020-04-26 2020-04-26 Outpatient R [facility] [id number] Univers 14:00:00 14:00:00 ity [facility] 2020-04-23 2020-04-23 Outpatient P NORAH ZAMUDIO [facility] ZECHARIAH [id number] Univers 05:13:00 05:13:00 [facility] 2020-04-18 2020-04-18 Outpatient R [facility] [id number] Univers 14:00:00 14:00:00 ity of [facility] 2020-04-18 2020-04-18 Initial Rishi Singh [facility] 1.2.840.114 [id number] Univers 11:38:03 13:17:26 Sona Figueredo Y HEALTH 350.1 .13.10 ity of Visit CLINICS [place] [phone] [facility] [address] [place] 2020-04-16 2020-04-16 Routine Room, [facility] 1.2.840.1 14 [id number] Univers 15:00:45 17:11:56 Ladonna Leyva 350.1.13.10 ity of [place] [phone] Md dical nal [address] [place] [address] 2020-04-16 2020-04-16 Outpatient R LADONNA LEYVA [facility] [id number] Univers 15:00:00 15:00:00 ity of [facility] 2020-04-16 2020-04-16 Telephone LUI Singh 1.2.840.114 [id number] Univers 00:00:00 00:00:00 [facility] 350.1.13.10 i ty of CL[place] [phone] [address] 2020-04-13 2020-04-13 Lockstitch Sleeve Maker Ultrasound, [facility] 1.2 .840.114 [id number] Univers 13:25:43 13:55:43 Visit HernandezAmada ames Lidia 350.1.13.10 ity of [place] [phone] Md dical nal [address] [place] [address] 2020-04-13 2020-04-13 Outpatient P BRITTNY HERNANDEZTA [facility] [id number] Univers 13:30:00 13:30:00 [facility] 2020-04-12 2020-04-12 Routine Room, [facility] 1.2.840.1 14 [id number] Univers 14:59:15 16:52:34 Ladonna Leyva 350.1.13.10 ity of [place] [phone] Md dical nal [address] [place] [address] 2020-04-12 2020-04-12 Outpatient R [facility] [id number] Univers 15:00:00 15:00:00 ity of [facility] 2020-04-09 2020-04-09 Outpatient R [facility] [id number] Univers 15:00:00 15:00:00 ity of [facility] 2020-04-04 2020-04-04 Lockstitch Sleeve Maker Ultrasound, [facility] 1.2 .840.114 [id number] Univers 09:54:38 10:24:38 Visit Amada Hernandez 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 .840.114 [id number] Univers 14:26:00 14:56:00 Visit Norah Zamudio [place] 350.1.13.10 ity [facility] 4.2.7.2.[place] [phone] Md dical [address] 2020-03-30 2020-03-30 Outpatient R [facility] [id number] Univers 14:30:00 14:30:00 ity of [facility] 2020-03-29 2020-03-29 Routine Room, [facility] 1.2.840.1 14 [id number] Univers 14:58:43 16:00:14 Ladonna Leyva Moris [place] 350.1.13.10 ity of [place] [phone] Md dic[address] 2020-03-29 2020-03-29 Outpatient R [facility] [id number] Univers 15:00:00 15:00:00 ity of [facility] 2020-03-28 2020-03-28 Case Ladonna Leyva [facility] 1.2.680.623 [id number] Univers 00:00:00 00:00:00 Management Moris [place] 350.1.13.10 ity [facility] 4.2.7.2.[place] [phone] Md dical nal [address] [place] [address] 2020-03-26 2020-03-26 Lockstitch Sleeve Maker Ultrasound, [facility] 1.2 .840.114 [id number] Univers 15:09:46 15:33:40 Visit Mayra Pinto MONOTYPE KEYBOARD OPERATOR 350.1. 13.10 ity of [facility] 4.2.7.2.686 Kostas as MATERNAL [phone] Med ical & CHILD [address] [place] [address] 2020-03-26 2020-03-26 Outpatient P [facility] [id number] Univers 14:45:00 14:45:00 ity of [facility] 2020-03-21 2020-03-21 Routine Room, [facility] 1.2.840.1 14 [id number] Univers 15:01:47 15:56:49 Ladonna Leyva [place] 350.1.13.10 ity of [place] 4[place] [phone] Md dic[address] 2020-03-21 2020-03-21 Outpatient R [facility] [id number] Univers 15:00:00 15:00:00 ity of [facility] 2020-03-19 2020-03-19 Outpatient R [facility] [id number] Univers 15:00:00 15:00:00 ity of [facility] 2020-03-19 2020-03-19 [facility] [id number] Univers 00:00:00 00:00:00 RUY ity [facility] 2020-03-15 2020-03-15 Outpatient R [facility] [id number] Univers 15:00:00 15:00:00 ity of [facility] 2020-03-14 2020-03-14 Routine Room, [facility] 1.2.840.1 14 [id number] Univers 11:24:52 12:51:24 Ladonna Leyva [place] 350.1.13.10 ity of [place] 4[place].7.[place] [phone] Md dic[address] 2020-03-14 2020-03-14 Outpatient R LADONNA LEYVA [facility] [id number] Univers 11:15:00 11:15:00 ity of [facility] 2020-03-14 2020-03-14 Outpatient R [facility] [id number] Univers 11:00:00 11:00:00 ity of [facility] 2020-03-14 2020-03-14 Letter Darnell [facility] 1.2.107.772 [id number] Univers 00:00:00 00:00:00 (Out) Ruy Murillo 350.1.13.10 i ty [place] [phone] [facility] 134 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 5, [facility] Room [facility]ERS[facility] 1 .2.840.114 [id number] Univers 13:26:10 14:23:27 Visit Amada Hernandez [facility] 350.1.13.10 ity of [facility] 4.2.7.2.[place] [phone] [address] 2020-03-09 2020-03-09 Outpatient P [facility] [id number] Univers 13:00:00 13:00:00 ity [facility] 2020-03-09 2020-03-09 Telephone Gordon [facility] 1.2.840.114 [id number] Univers 00:00:00 00:00:00 Moris Murillo 350.1.13.10 i ty of [place] 4.[place].2.[place] [phone] [facility] 134 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 2020-03-02 2020-03-02 Outpatient R GORDON LADONNA [facility] [id number] Univers 10:15:00 10:15:00 ity [facility] 2020-03-01 2020-03-01 Lockstitch Sleeve Maker 3, [facility] Room UNIVERSIT 1 .2.840.114 [id number] Univers 12:58:02 13:44:17 Visit Allen Martinez 350.1.13.10 ity of [place] [id number] [address] 2020-03-01 2020-03-01 Outpatient P [facility] [id number] Univers 13:00:00 13:00:00 ity [facility] 2020-02-20 2020-02-20 Outpatient R [facility] [id number] Univers 11:30:00 11:30:00 ity of [facility] 2020-02-14 2020-02-14 Routine Gordon [facility] 1.2.200.215 [id number] Univers 11:08:11 12:13:04 Moris Murillo 350.1.13.10 ity of [place] 4.2.7.2.[place] essio [id number] [address] 2020-02-14 2020-02-14 Outpatient R GORDON LADONNA [facility] [id number] Univers 11:15:00 11:15:00 ity of [facility] 2020-01-16 2020-01-16 Outpatient R DARNELL, [facility] [id number] Univers 08:00:00 08:00:00 [facility] 2020-01-09 2020-01-09 Outpatient R DARNELL, [facility] [id number] Univers 16:00:00 16:00:00 [facility] 2020-01-05 2020-01-06 Lockstitch Sleeve Maker 1, [facility] Us Room UNIVERSIT 1 .2.840.114 [id number] Univers 14:15:37 08:27:56 Visit Gurmeet Hall [facility] 350.1.13.10 ity of [place] [id number] [address] 2020-01-05 2020-01-05 Outpatient P [facility] [id number] Univers 14:15:00 14:15:00 ity [facility] 2020-01-04 2020-01-05 Office 2, 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 13.10 ity of [facility] 4.2.7.2.686 Kostas as MATERNAL [phone] Med ical & CHILD [address] [place] [address] 2020-01-03 2020-01-03 Outpatient R [facility] [id number] Univers 08:00:00 08:00:00 ity of [facility] 2019-12-12 2019-12-12 Outpatient R [facility] [id number] Univers 11:00:00 11:00:00 ity of [facility] 2019-12-06 2019-12-06 Initial Ladonna Leyva [facility] 1.2.143.794 [id number] Univers 11:08:00 12:04:06 Cam Lidia 350.1.13.10 ity of [place] [phone] Md dical [address] 2019-12-06 2019-12-06 Outpatient R LADONNA LEYVA [facility] [id number] Univers 11:00:00 11:00:00 ity of [facility] 2019-12-06 2019-12-06 Orders Doctor LAURY 1.2.840.114 [id number] Univers 00:00:00 00:00:00 Only Unassigned, JONE 350.1.13.10 ity of [place] [facility] 4.2.7.2.686 Kostas as [phone] [facility] [address] [place] 2019-11-28 2019-11-[address] [facility] 1.2.059.407 [id number] Univers 16:03:00 19:22:00 Matthias Alyton 350.1.13.10 i ty of [place] 4[place]2.7.2.[place] [id number] [facility] 084 [place] 2019-11-28 2019-11-28 Orders Doctor LAURY 1.2.840.114 [id number] Univers 00:00:00 00:00:00 Only Unassigned, JONE 350.1.13.10 ity of [place] [facility] 4.2.7.2.686 Kostas as [phone] [facility] 00[address] [place] 2019-11-22 2019-11-22 Abstract A[place], [facility] 1.2.840.114 [id number] Univers 00:00:00 00:00:00 Kelsey Jewell MONOTYPE KEYBOARD OPERATOR 350.1.13.10 ity of [facility] 4.2.7.2.686 [place]ost[place] as MATERNAL [phone] Med ical & CHILD 107 [facility] 2019-11-22 2019-11-22 Telephone Pob1, Acute [facility] 1.2.840.114 [id number] Univers 00:00:00 00:00:00 [facility] 350.1.13.10 ity of [place] 4.2.7.2.686 Kostas as Professio [phone] [address] 2019-11-18 2019-11-18 Laboratory Lab, Adc Fam Pob I [facility] 1.2. 840.114 [id number] Univers 10:40:23 11:00:23 Only [facility] 350.1.13.10 ity of [place] 4.2.7.2.686 Kostas as Professio [phone] Md dical nal [address] [place] [address] Office [facility] 2019-11-18 2019-11-18 Lockstitch Sleeve Maker Ultrasound, Ang[facility] 1.2 .840.114 [id number] Univers 10:00:28 10:24:10 Visit Amada Hernandez MONOTYPE KEYBOARD OPERATOR 350.1.13.10 ity of [facility] 4.2.7.2.686 Kostas as MATERNAL [phone] [facility] ical & CHILD 369 [facility] 2019-11-18 2019-11-18 Outpatient P UT [facility] [id number] Univers 10:00:00 10:00:00 ity of [facility] 2019-11-10 2019-11-10 Outpatient P [facility] [id number] Univers 14:45:00 14:45:00 ity [facility] 2019-11-07 2019-11-07 [facility] 1.2.840.114 [id number] Univers 00:00:00 00:00:00 Kelsey C MONOTYPE KEYBOARD OPERATOR 350.1.13.10 ity of REGIONAL 4.2.7.2.686 [place]ostas as MATERNAL [id number] Med ical & CHILD [address] [place] [address] 2019-11-03 2019-11-03 Initial [facility] 1.2.583.110 [id number] Univers 09:02:46 10:40:27 Kelsey C MONOTYPE KEYBOARD OPERATOR 350.1.13.10 ity of Visit REGIONAL 4.2.7.2.686 Kostas as MATERNAL [phone] [facility] ical & CHILD [address] [place] [address] 2019-11-03 2019-11-03 [facility] [id number] Univers 08:30:00 08:30:00 KELSEY ity o f [facility] 2018-01-27 2018-01-27 Outpatient [facility] [id number] Common 16:01:00 16:01:00 [facility] 2018-01-26 2018-01-26 Outpatient [facility] [id number] Common 13:20:00 13:20:00 [facility] 2017-11-18 2017-11-18 Outpatient [facility] [id number] Common 15:15:00 15:15:00 [facility] Results Test Test Test Results Result Source Description Time Comments Comments FL TIME OR 2020-06- These images do not require University of (NON-REPORTABLE 24 a Radiology diagnostic [facility] ) 20:04:28 report. Branch US ABDOMEN 2020-06- Cholelithiasis without U niversity of LIMITED 24 sonographic evidence for [facility] 13:51:23 acute cholecystitis. Mild Branch hepatic [...] cm inlength. No right upper quadrant ascites. [facility], Radiant Results Inft User - 07/18/2020 8:52 [...] Comme nts BILI CONJ (test code = 5312393965) 0.0 mg/dL 0.0-0.3 BILI UNCON (test code = 6496566700) 0.6 mg/dL 0.1-1.1 Lab Interpretation (test code = 41571-8) Normal [facility] RAPID TESTING)2020-07-18 13:20:12 Test Item Value Reference Range Interpretation Comments SARS-CoV-2 Rapid ID NOW Not Detected Not Detected (test code = 92235-7) TRISTON (test code = TRISTON) ID NOW COVID-19 Assay is an isothermal nucleic acid amplification test intended for the qualitative detection of nucleic acid from SARS-CoV-2 viral RNA in nasopharyngeal (TIMBER ROBBER) specimens. It is used under Emergency Use [...] indicated. Lab Interpretation Normal (test code = 07195-4) [facility]2021-[facility]-24 12:30:58 Test Item Value Reference Range Interpretation Comments APPEARANCE (test code = Clear Clear 1218583243) COLOR (test code = Yellow Yellow 7623946243) PH (test code = 4.8-8.0 7796821684) SP GRAVITY (test code = 1.003-1.030 1943823270) GLU U QUAL (test code = Normal Normal 0667951899) BLOOD (test code = Negative Negative 1401806264) KETONES (test code = Negative Negative 8774890147) PROTEIN (test code = Negative Negative 2887-8) UROBILIN (test code = Normal Normal 3504300003) BILIRUBIN (test code = Negative Negative 6981901044) NITRITE (test code = Negative Negative 6438960988) LEUK VAHID (test code = 250/uL Negative A 4745373952) RBC/HPF (test code = See_Comment H [Autom ated message] 5919971192) The system [employer] generated this result transmitted ref erence range: 0 - 3 HP F. The reference range was not used to int erpret this result as normal/abnormal . WBC/HPF (test code = See_Comment H [Autom ated message] 2779032537) The system [employer] generated this result transmitted ref erence range: 0 - 5 HP F. The reference range was not used to int erpret this result as normal/abnormal . BACTERIA (test code = Few Negative A 6142251607) SQ EPITH (test code = HPF 9074371730) Lab Interpretation (test Abnormal code = 46216-8) [facility]. METABOLIC PANEL (68045)2020-07-18 12:30:33 Test Item Value Reference Range Interpretation Comments NA (test code = 140 mmol/L 135-145 4323034256) K (test code = 4.2 mmol/L 3.5-5.0 8855156637) CL (test code = 108 mmol/L 98-108 8972489609) CO2 TOTAL (test code = 24 mmol/L 23-31 8943541525) AGAP (test code = 2-16 6285999250) BUN (test code = 13 mg/dL 7-23 7349988215) GLUCOSE (test code = 101 mg/dL 70-110 2393482140) CREATININE (test code = 0.47 mg/dL 0.50-1.04 L 3319067663) TOTAL BILI (test code = 0.8 mg/dL 0.1-1.3 7773928731) CALCIUM (test code = 8.7 mg/dL 8.6-10.6 0791981517) T PROTEIN (test code = 7.2 g/dL 6.3-8.2 8117922279) ALBUMIN (test code = 4.4 g/dL 3.5-5.0 3399330758) ALK PHOS (test code = 169 U/L 34-122 H 6227887188) ALTv (test code = 79 U/L 5-35 H 1742-6) AST(SGOT) (test code = 37 U/L 13-40 6571547019) eGFR Calculation mL/min/1.73m2 (Non-) (test code = 3239743401) eGFR Calculation mL/min/1.73m2 () (test code = 6850431870) TRISTON (test code = TRISTON) Association of [...] tests). Lab Interpretation Abnormal (test code = 70927-6) [facility]21-[facility] 12:18:04 Test Item Value Reference Range Interpretation Comments LIPASE (test code = 7307422381) 127 U/L 0-220 Lab Interpretation (test code = Normal 58327-6) [facility] WITH [id number] 11:56:46 Test Item Value Reference Range Interpretation Comments WBC (test code = See_Comment [Automated 6390-2) message] The sy stem which generated this [...] RDW-SD (test code = 42.2 fL 39.0-49.9 64467-8) RDW-CV (test code = 12.6 % 12.0-15.5 788-0) PLT (test code = See_Comment [Automated 777-3) message] The sy stem which generated this result transmitted reference range : 166 - 358 10*3/ ?L. The reference r dejuan was not used to interpret this result as normal/abnormal . MPV (test code = 11.0 fL 9.5-12.9 24505-3) NRBC/100 WBC (test See_Comment [Automat ed code = 2869157588) message] The system which generated this result transmitted reference range : 0.0 - 10.0 /100 WBCs. The refer ence range was not u sed to interpret th is result as normal/abnormal . NRBC x10^3 (test code <0.01 See_Comment [Auto mated = 4081739151) message] The s ystem which generated this result transmitted reference range : 10*3/?L. The reference range was not used to interpret this result as normal/abnormal . GRAN MAT (NEUT) % 73.4 % (test code = 770-8) IMM GRAN % (test code 0.40 % = 3867198814) LYMPH % (test code = 19.4 % 736-9) MONO % (test code = 4.8 % 5905-5) EOS % (test code = 1.5 % 713-8) BASO % (test code = 0.5 % 706-2) GRAN MAT x10^3(ANC) 8.01 10*3/uL 1.88-7.09 H (test code = 2955184881) IMM GRAN x10^3 (test 0.04 10*3/uL 0.00-0.06 code = 9552115148) LYMPH x10^3 (test code 2.12 10*3/uL 1.32-3.29 = 731-0) MONO x10^3 (test code 0.52 10*3/uL 0.33-0.92 = 742-7) EOS x10^3 (test code = 0.16 10*3/uL 0.03-0.39 711-2) BASO x10^3 (test code 0.05 10*3/uL 0.01-0.07 = 704-7) Lab Interpretation Abnormal (test code = 80253-3) [facility] [id number] 11:36:00 Test Item Value Reference Range Interpretation Comments POCT PREG (test code = 1605) Negative On board controls acceptable with Present C Line (test code = 3574) POCT PREG LOT # (test code = HCG [id number] [id number]) POCT PREG TEST DATE (test 12/25/2021 code = 3576) Lab Interpretation (test code = Normal 47172-3) [facility] PELVIS W [id number] 08:04:39 No acute process identified in the abdomen or pelvis. Cholelithiasis without CT evidence for acute cholecystitis. RL: 460 AFC: 22213 Ordering physician: MATTHIAS BEDOLLA Indication: Acute abdominal [...] without CT evidence for acute cholecystitis.RL: 460AF: 52074 [facility] 06:46:26 Test Item Value Reference Range Interpretation Comments APPEARANCE (test code = Cloudy Clear A 1451165797) COLOR (test code = Yellow Yellow 6526273464) PH (test code = 4.8-8.0 4293617506) SP GRAVITY (test code = 1.003-1.030 0085391227) GLU U QUAL (test code = Normal Normal 2916987676) BLOOD (test code = Negative Negative 1016179281) KETONES (test code = Negative Negative 3454095089) PROTEIN (test code = Negative Negative 2887-8) UROBILIN (test code = Normal Normal 7816249698) BILIRUBIN (test code = Negative Negative 1944936380) NITRITE (test code = Negative Negative 9893392742) LEUK VAHID (test code = 25/uL Negative A 9227324329) RBC/HPF (test code = See_Comment [Autom ated message] [id number]) The system [employer] generated this result transmitted ref erence range: 0 - 3 HP F. The reference range was not used to int erpret this result as normal/abnormal . WBC/HPF (test code = See_Comment H [Autom ated message] [id number]) The system [employer] generated this result transmitted ref erence range: 0 - 5 HP F. The reference range was not used to int erpret this result as normal/abnormal . BACTERIA (test code = Many Negative A [id number]) MUCOUS (test code = Slight Negative LPF A [id number]) AMORPHOUS (test code = Moderate Rare HPF A [id number]) SQ EPITH (test code = HPF [id number]) Lab Interpretation (test Abnormal code = 44018-3) [facility]. METABOLIC PANEL (90457)2020-07-10 06:33:53 Test Item Value Reference Range Interpretation Comments NA (test code = 139 mmol/L 135-145 7830525077) K (test code = 3.7 mmol/L 3.5-5.0 4033460974) CL (test code = 102 mmol/L 98-108 0871315073) CO2 TOTAL (test code = 29 mmol/L 23-31 3332849200) AGAP (test code = 2-16 3486722598) BUN (test code = 12 mg/dL 7-23 4318869844) GLUCOSE (test code = 118 mg/dL 70-110 H 2957952913) CREATININE (test code = 0.67 mg/dL 0.50-1.04 1691193154) TOTAL BILI (test code = 0.6 mg/dL 0.1-1.7 5990602568) CALCIUM (test code = 9.2 mg/dL 8.6-10.6 2607932529) T PROTEIN (test code = 7.2 g/dL 6.3-8.2 3894780886) ALBUMIN (test code = 4.6 g/dL 3.5-5.0 1355964259) ALK PHOS (test code = 168 U/L 34-122 H 9366152924) ALTv (test code = 111 U/L 5-35 H 1742-6) AST(SGOT) (test code = 30 U/L 13-40 0691002412) eGFR Calculation mL/min/1.73m2 (Non-) (test code = 9653329416) eGFR Calculation mL/min/1.73m2 () (test code = 9531504995) TRISTON (test code = TRISTON) Association of [...] tests). Lab Interpretation Abnormal (test code = 99833-7) [facility] Test Item Value Reference Range Interpretation Comments LIPASE (test code = 0167160114) 85 U/L 0-220 Lab Interpretation (test code = Normal 17773-5) [facility] WITH [id number] 06:24:16 Test Item Value Reference Range Interpretation Comments WBC (test code = See_Comment H [Automated 4153-2) message] The sy stem which generated this result transmitted reference range : 4.30 - 11.10 10*3/?L. The reference range was not used to interpret this result as normal/abnormal . RBC (test code = See_Comment [Automated 018-8) message] The sy stem which generated this [...] RDW-SD (test code = 43.1 fL 39.0-49.9 55939-3) RDW-CV (test code = 12.6 % 12.0-15.5 788-0) PLT (test code = See_Comment [Automated 777-3) message] The sy stem which generated this result transmitted reference range : 166 - 358 10*3/ ?L. The reference r dejuan was not used to interpret this result as normal/abnormal . MPV (test code = 10.1 fL 9.5-12.9 56684-5) NRBC/100 WBC (test See_Comment [Automat ed code = 9253708889) message] The system which generated this result transmitted reference range : 0.0 - 10.0 /100 WBCs. The refer ence range was not u sed to interpret th is result as normal/abnormal . NRBC x10^3 (test code <0.01 See_Comment [Auto mated = 3040139381) message] The s ystem which generated this result transmitted reference range : 10*3/?L. The reference range was not used to interpret this result as normal/abnormal . GRAN MAT (NEUT) % 83.3 % (test code = 770-8) IMM GRAN % (test code 0.30 % = 0997081987) LYMPH % (test code = 12.4 % 736-9) MONO % (test code = 2.8 % 5905-5) EOS % (test code = 0.8 % 713-8) BASO % (test code = 0.4 % 706-2) GRAN MAT x10^3(ANC) 9.80 10*3/uL 1.88-7.09 H (test code = 7459737605) IMM GRAN x10^3 (test 0.04 10*3/uL 0.00-0.06 code = 0596813655) LYMPH x10^3 (test code 1.46 10*3/uL 1.32-3.29 = 731-0) MONO x10^3 (test code 0.33 10*3/uL 0.33-0.92 = 742-7) EOS x10^3 (test code = 0.09 10*3/uL 0.03-0.39 711-2) BASO x10^3 (test code 0.05 10*3/uL 0.01-0.07 = 704-7) Lab Interpretation Abnormal (test code = 92045-4) [facility] [id number] 06:00:00 Test Item Value Reference Range Interpretation Comments POCT PREG (test code = 1605) negative On board controls acceptable with present C Line (test code = 3574) POCT PREG LOT # (test code = 3575) [id number] POCT PREG TEST DATE (test 2022-02-24 code = 3576) Lab Interpretation (test code = Normal 55658-4) [facility] [id number] 22:58:00 Test Item Value Reference Range Interpretation Comments POCT PREG (test code = 1605) Negative On board controls acceptable with C Yes Line (test code = 3574) POCT PREG LOT # (test code = 3575) POCT PREG TEST DATE (test code = 3576) Lab Interpretation (test code = Normal 73497-8) [facility] [id number] 22:58:00 Test Item Value Reference Range Interpretation Comments POCT PREG (test code = 1605) Negative On board controls acceptable with C Yes Line (test code = 3574) POCT PREG LOT # (test code = 3575) POCT PREG TEST DATE (test code = 3576) Lab Interpretation (test code = Normal 79668-1) [facility] [id number] 22:58:00 Test Item Value Reference Range Interpretation Comments POCT PREG (test code = 1605) Negative On board controls acceptable with C Yes Line (test code = 3574) POCT PREG LOT # (test code = 3575) POCT PREG TEST DATE (test code = 3576) Lab Interpretation (test code = Normal 44400-8) [facility] [id number] 22:58:00 Test Item Value Reference Range Interpretation Comments POCT PREG (test code = 1605) Negative On board controls acceptable with C Yes Line (test code = 3574) POCT PREG LOT # (test code = 3575) POCT PREG TEST DATE (test code = 3576) Lab Interpretation (test code = Normal 79498-2) [facility] (ALB, T.PRO, BILI T, BU/BC, ALT, AST, ALK PHOS)2020-05-18 08:40:00 Test Item Value Reference Range Interpretation Comments TOTAL BILI (test code = 2689525448) 0.5 mg/dL 0.1-1.1 BILI UNCON (test code = 6339709823) 0.3 mg/dL 0.1-1.1 BILI CONJ (test code = 9205452987) 0.0 mg/dL 0-0.3 T PROTEIN (test code = 0264675429) 6.9 g/dL 6.3-8.2 ALBUMIN (test code = 7193433404) 4.0 g/dL 3.5-5 ALK PHOS (test code = 4451521223) 188 U/L 34-122 H ALTv (test code = 1742-6) 228 U/L 5-35 H AST(SGOT) (test code = 4626108252) 104 U/L 13-40 H Lab Interpretation (test code = Abnormal 39682-5) [facility] (ALB, T.PRO, BILI T, BU/BC, ALT, AST, ALK PHOS)2020-05-18 08:40:00 Test Item Value Reference Range Interpretation Comments TOTAL BILI (test code = 7209599707) 0.5 mg/dL 0.1-1.1 BILI UNCON (test code = 2559705027) 0.3 mg/dL 0.1-1.1 BILI CONJ (test code = 7391008856) 0.0 mg/dL 0-0.3 T PROTEIN (test code = 2077701227) 6.9 g/dL 6.3-8.2 ALBUMIN (test code = 9918334043) 4.0 g/dL 3.5-5 ALK PHOS (test code = 2645436164) 188 U/L 34-122 H ALTv (test code = 1742-6) 228 U/L 5-35 H AST(SGOT) (test code = 2682896817) 104 U/L 13-40 H Lab Interpretation (test code = Abnormal 14948-3) [facility] (NA, K, CL, CO2, GLUCOSE, BUN, CREATININE, CA)2020-05-18 08:39:00 Test Item Value Reference Range Interpretation Comments NA (test code = 138 mmol/L 135-145 5766920441) K (test code = 3.9 mmol/L 3.5-5 3098666323) CL (test code = 105 mmol/L 98-108 2165268560) CO2 TOTAL (test code = 24 mmol/L 23-31 3833781153) AGAP (test code = 2-16 1566556508) BUN (test code = 13 mg/dL 7-23 3423228903) GLUCOSE (test code = 103 mg/dL 70-110 8840162730) CREATININE (test code 0.78 mg/dL 0.5-1.04 = 3976447245) CALCIUM (test code = 8.9 mg/dL 8.6-10.6 3966430364) eGFR Calculation mL/min/1.73m2 (Non-) (test code = 9088046317) eGFR Calculation mL/min/1.73m2 () (test code = 7479097706) TRISTON (test code = TRISTON) Association of [...] or urine or abnormalities in imaging tests). [facility]wall[facility] [id number] 08:39:00 Test Item Value Reference Range Interpretation Comments LIPASE (test code = 8521690783) 108 U/L 0-220 Lab Interpretation (test code = Normal 44857-0) [facility]wall[facility]rop[facility] [id number] 08:39:00 Test Item Value Reference Range Interpretation Comments TROPONIN I (test <0.012 See_Comment [Automated code = 7368090669) message] The system which generated this result [...] ? Lab Interpretation Normal (test code = 35415-6) [facility] (NA, K, CL, CO2, GLUCOSE, BUN, CREATININE, CA)2020-05-18 08:39:00 Test Item Value Reference Range Interpretation Comments NA (test code = 138 mmol/L 135-145 1803317385) K (test code = 3.9 mmol/L 3.5-5 1077838030) CL (test code = 105 mmol/L 98-108 1569269772) CO2 TOTAL (test code = 24 mmol/L 23-31 0557606968) AGAP (test code = 2-16 6009797004) BUN (test code = 13 mg/dL 7-23 2775616015) GLUCOSE (test code = 103 mg/dL 70-110 2263718269) CREATININE (test code 0.78 mg/dL 0.5-1.04 = 5795175121) CALCIUM (test code = 8.9 mg/dL 8.6-10.6 9304373110) eGFR Calculation mL/min/1.73m2 (Non-) (test code = 5961628921) eGFR Calculation mL/min/1.73m2 () (test code = 0808537176) TRISTON (test code = TRISTON) Association of [...] or urine or abnormalities in imaging tests). [facility]wall[facility] [id number] 08:39:00 Test Item Value Reference Range Interpretation Comments LIPASE (test code = 4765871496) 108 U/L 0-220 Lab Interpretation (test code = Normal 69862-2) [facility]wall[facility]rop[facility] [id number] 08:39:00 Test Item Value Reference Range Interpretation Comments TROPONIN I (test <0.012 See_Comment [Automated code = 3933336028) message] The system which generated this result [...] ? Lab Interpretation Normal (test code = 49085-7) [facility] with [id number] 08:09:00 Test Item Value Reference Range Interpretation [...] RDW-SD (test code = 40.8 fL 39-49.9 19275-0) RDW-CV (test code = 11.9 % 12-15.5 L 788-0) PLT (test code = See_Comment [Automated 777-3) message] The sy stem which generated this result transmitted reference range : 166 - 358 10*3/ ?L. The reference r dejuan was not used to interpret this result as normal/abnormal . MPV (test code = 12.2 fL 9.5-12.9 91466-3) NRBC/100 WBC (test See_Comment [Automat ed code = 8042578456) message] The system which generated this result transmitted reference range : 0.0 - 10.0 /100 WBCs. The refer ence range was not u sed to interpret th is result as normal/abnormal . NRBC x10^3 (test code <0.01 See_Comment [Auto mated = 8527242141) message] The s ystem which generated this result transmitted reference range : 10*3/?L. The reference range was not used to interpret this result as normal/abnormal . GRAN MAT (NEUT) % 73.1 % (test code = 770-8) IMM GRAN % (test code 0.40 % = 4477175631) LYMPH % (test code = 20.3 % 736-9) MONO % (test code = 3.7 % 5905-5) EOS % (test code = 2.1 % 713-8) BASO % (test code = 0.4 % 706-2) GRAN MAT x10^3(ANC) 8.18 10*3/uL 1.88-7.09 H (test code = 1968650453) IMM GRAN x10^3 (test 0.05 10*3/uL 0-0.06 code = 7462063121) LYMPH x10^3 (test code 2.28 10*3/uL 1.32-3.29 = 731-0) MONO x10^3 (test code 0.42 10*3/uL 0.33-0.92 = 742-7) EOS x10^3 (test code = 0.23 10*3/uL 0.03-0.39 711-2) BASO x10^3 (test code 0.05 10*3/uL 0.01-0.07 = 704-7) Lab Interpretation Abnormal (test code = 68660-3) [facility] with [id number] 08:09:00 Test Item Value Reference Range Interpretation Comments WBC (test code = See_Comment H [Automated 7655-2) message] The sy stem which generated this result transmitted reference range : 4.30 - 11.10 10*3/?L. The reference range was not used to interpret this result as normal/abnormal . RBC (test code = See_Comment [Automated 671-8) message] The sy stem which generated this [...] RDW-SD (test code = 40.8 fL 39-49.9 08797-2) RDW-CV (test code = 11.9 % 12-15.5 L 788-0) PLT (test code = See_Comment [Automated 777-3) message] The sy stem which generated this result transmitted reference range : 166 - 358 10*3/ ?L. The reference r dejuan was not used to interpret this result as normal/abnormal . MPV (test code = 12.2 fL 9.5-12.9 44104-1) NRBC/100 WBC (test See_Comment [Automat ed code = 4364045016) message] The system which generated this result transmitted reference range : 0.0 - 10.0 /100 WBCs. The refer ence range was not u sed to interpret th is result as normal/abnormal . NRBC x10^3 (test code <0.01 See_Comment [Auto mated = 4736991613) message] The s ystem which generated this result transmitted reference range : 10*3/?L. The reference range was not used to interpret this result as normal/abnormal . GRAN MAT (NEUT) % 73.1 % (test code = 770-8) IMM GRAN % (test code 0.40 % = 9913486817) LYMPH % (test code = 20.3 % 736-9) MONO % (test code = 3.7 % 5905-5) EOS % (test code = 2.1 % 713-8) BASO % (test code = 0.4 % 706-2) GRAN MAT x10^3(ANC) 8.18 10*3/uL 1.88-7.09 H (test code = 0256541697) IMM GRAN x10^3 (test 0.05 10*3/uL 0-0.06 code = 4323105184) LYMPH x10^3 (test code 2.28 10*3/uL 1.32-3.29 = 731-0) MONO x10^3 (test code 0.42 10*3/uL 0.33-0.92 = 742-7) EOS x10^3 (test code = 0.23 10*3/uL 0.03-0.39 711-2) BASO x10^3 (test code 0.05 10*3/uL 0.01-0.07 = 704-7) Lab Interpretation Abnormal (test code = 76761-5) [facility]wallBIOPH[facility] PROFILE WITH NON-STRESS TEST 2020-04-18 19:57:52NST: 130, moderate variability, +accels, no decelsBPP 1010Toco: quiescentUnU[facility] HospitalPOCT [facility]INALYSIS W/O SPECIFIC [id number] 01:12:00 Test Item Value Reference Range Interpretation [...] code = 3257) na Negative - Negative [facility] NON-STRESS [id number] 01:04:39 Reactive and reassuringToco quiescent Ladonna Leyva MD ?04/16/2020 ?7:04 PM [facility] NON-STRESS [id number] 01:37:59 Reactive and reassuringToco quiescent Ladonna Leyva MD ?04/12/2020 ?7:37 PM [facility] NON-STRESS [id number] 22:01:18 Reactive and reassuring [facility] [id number] 22:09:20NST reactive and reassuringUnB[facility] NON-STRESS [id number] 22:09:20NST reactive and reassuring [facility] NON-STRESS [id number] 22:07:24 Reactive and reassuringToco quiescent Ladonna Leyva MD ?03/21/2020 ?4:07 PM [facility] TO CONTACT FOR VOLUNTARY RESEARCH 2019-12-06 16:09:25 Test Item Value Reference Range Interpretation Comments Consent To Contact For Voluntary Yes Research (test code = 4947) [facility]INAL[facility]IS2020-08-03 23:39:00 Test Item Value Reference Range Interpretation Comments APPEARANCE (test code = Hazy Clear A 8827419356) COLOR (test code = Yellow Yellow 5916146614) PH (test code = 4.8-8.0 1818670155) SP GRAVITY (test code = 1.003-1.030 0441450074) GLU U QUAL (test code = Normal Normal 6235747197) BLOOD (test code = Negative Negative 8829069958) KETONES (test code = 5 mg/dL Negative A 7701536246) PROTEIN (test code = Negative Negative 2887-8) UROBILIN (test code = Normal Normal 6677878397) BILIRUBIN (test code = Negative Negative 7852089231) NITRITE (test code = Negative Negative 3059849515) LEUK VAHID (test code = Negative Negative 6774527858) RBC/HPF (test code = See_Comment [Autom ated message] 9960300002) The system [employer] generated this result transmitted ref erence range: 0 - 3 HP F. The reference range was not used to int erpret this result as normal/abnormal . WBC/HPF (test code = See_Comment [Autom ated message] 2257866609) The system [employer] generated this result transmitted ref erence range: 0 - 5 HP F. The reference range was not used to int erpret this result as normal/abnormal . BACTERIA (test code = Moderate Negative A 4247306925) MUCOUS (test code = Slight Negative LPF A 2275609577) SQ EPITH (test code = HPF 5551047867) Lab Interpretation (test Abnormal code = 32222-6) [facility]wallCOMP. METABOLIC PANEL (99847)2019-11-28 22:30:00 Test Item Value Reference Range Interpretation Comments NA (test code = 133 mmol/L 135-145 L 2919925880) K (test code = 3.8 mmol/L 3.5-5 5253281465) CL (test code = 107 mmol/L 98-108 9265285690) CO2 TOTAL (test code = 23 mmol/L 23-31 4431430489) AGAP (test code = 2-16 5943562816) BUN (test code = 2 mg/dL 7-23 L 3627718810) GLUCOSE (test code = 81 mg/dL 70-110 0595428029) CREATININE (test code = 0.34 mg/dL 0.5-1.04 L 5696499323) TOTAL BILI (test code = 0.6 mg/dL 0.1-1.9 6227078903) CALCIUM (test code = 9.0 mg/dL 8.6-10.6 5767415526) T PROTEIN (test code = 6.2 g/dL 6.3-8.2 L 4450757839) ALBUMIN (test code = 3.2 g/dL 3.5-5 L 7771488614) ALK PHOS (test code = 82 U/L 34-122 2180595656) ALTv (test code = 12 U/L 5-35 1742-6) AST(SGOT) (test code = 17 U/L 13-40 4006152599) eGFR Calculation mL/min/1.73m2 (Non-) (test code = 4695414353) eGFR Calculation mL/min/1.73m2 () (test code = 9747904948) TRISTON (test code = TRISTON) Association of [...] tests). Lab Interpretation Abnormal (test code = 52301-0) [facility] WITH [id number] 21:54:00 Test Item Value Reference Range Interpretation Comments WBC (test code = See_Comment H [Automated 4590-2) message] The sy stem which generated this [...] RDW-SD (test code = 39.8 fL 39-49.9 95296-5) RDW-CV (test code = 12.0 % 12-15.5 788-0) PLT (test code = See_Comment [Automated 777-3) message] The sy stem which generated this result transmitted reference range : 166 - 358 10*3/ ?L. The reference r dejuan was not used to interpret this result as normal/abnormal . MPV (test code = 11.1 fL 9.5-12.9 08887-7) NRBC/100 WBC (test See_Comment [Automat ed code = 3567748247) message] The system which generated this result transmitted reference range : 0.0 - 10.0 /100 WBCs. The refer ence range was not u sed to interpret th is result as normal/abnormal . NRBC x10^3 (test code <0.01 See_Comment [Auto mated = 0412699405) message] The s ystem which generated this result transmitted reference range : 10*3/?L. The reference range was not used to interpret this result as normal/abnormal . GRAN MAT (NEUT) % 78.1 % (test code = 770-8) IMM GRAN % (test code 0.60 % = 1327459309) LYMPH % (test code = 14.5 % 736-9) MONO % (test code = 4.8 % 5905-5) EOS % (test code = 1.7 % 713-8) BASO % (test code = 0.3 % 706-2) GRAN MAT x10^3(ANC) 8.84 10*3/uL 1.88-7.09 H (test code = 6684315142) IMM GRAN x10^3 (test 0.07 10*3/uL 0-0.06 H code = 9034672962) LYMPH x10^3 (test code 1.64 10*3/uL 1.32-3.29 = 731-0) MONO x10^3 (test code 0.54 10*3/uL 0.33-0.92 = 742-7) EOS x10^3 (test code = 0.19 10*3/uL 0.03-0.39 711-2) BASO x10^3 (test code 0.03 10*3/uL 0.01-0.07 = 704-7) Lab Interpretation Abnormal (test code = 19947-8) [facility] URINALYSIS W/O SPECIFIC [id number] 14:11:00 Test Item Value Reference Range Interpretation [...] code = 3257) Neg Negative - Negative [facility] [id number] 14:11:00 Test Item Value Reference Range Interpretation [...] code = 3257) Neg Negative - Negative [facility] [id number] 14:10:00 Test Item Value Reference Range Interpretation Comments POCT PREG (test code = 1605) Positive On board controls acceptable with C Yes Line (test code = 3574) POCT PREG LOT # (test code = 3575) POCT PREG TEST DATE (test code = 3576) [facility] [id number] 14:10:00 Test Item Value Reference Range Interpretation Comments POCT PREG (test code = 1605) Positive On board controls acceptable with C Yes Line (test code = 3574) POCT PREG LOT # (test code = 3575) POCT PREG TEST DATE (test code = 357) [facility] ANTIGEN WITH HIV-1/2 [id number] 16:26:00 Test Item Value Reference Range Interpretation Comments HIV-1 ANTIGEN WITH HIV 1\\T\\2 Nonreactive Nonreactive ANTIBODY (2) (BEAKER) (test code = 2586) BASIC METABOLIC [id number] 06:30:00 Test Item Value Reference Range Interpretation [...] m DATA TO CALCULA TE ESTIMATED GFR. [id number] 06:19:00 Test Item Value Reference Range Interpretation Comments PHOSPHORUS (BEAKER) (test code = 1.9 mg/dL 2.3-4.7 L 604) [id number] 06:19:00 Test Item Value Reference Range Interpretation Comments MAGNESIUM (BEAKER) (test code = 1.8 mg/dL 1.6-2.6 627) HEPATIC FUNCTION [id number] 06:19:00 Test Item Value Reference Range Interpretation [...] 6-55 347) CBC W/PLT COUNT & AUTO [id number] 06:11:00 Test Item Value Reference Range Interpretation [...] (BEAKER) (test code = 2801) BASIC METABOLIC [id number] 10:11:00 Test Item Value Reference Range Interpretation [...] m DATA TO CALCULA TE ESTIMATED GFR. [id number] 09:56:00 Test Item Value Reference Range Interpretation Comments PHOSPHORUS (BEAKER) (test code = 1.6 mg/dL 2.3-4.7 L 604) [id number] 09:56:00 Test Item Value Reference Range Interpretation Comments MAGNESIUM (BEAKER) (test code = 2.0 mg/dL 1.6-2.6 627) HEPATIC FUNCTION [id number] 09:56:00 Test Item Value Reference Range Interpretation [...] 6-55 347) CBC W/PLT COUNT & AUTO [id number] 09:53:00 Test Item Value Reference Range Interpretation [...] % 0-1 PERCENT (BEAKER) (test code = 9351)"
[2022-05-18] MEDS ORDERED: METOCLOPRAMIDE 10 MG/2mL INJ ONE (00:23)
[2022-05-18] MEDS ORDERED: DIPHENHYDRAMINE 50 MG/ML VIAL ONE (00:23)
[2022-05-18] MEDS ORDERED: MORPHINE 4 MG/ML SYR ONE (00:23)
[2022-05-18] MEDS ORDERED: KETOROLAC 30 MG/ML INJ ONE (00:24)
[2022-05-18] MEDS ORDERED: NA CHLORIDE 0.9% 1,000 ML ONE (00:24)
--- NOTE | 2022-05-18 01:35 | EDPHYS ---
Physician Documentation [facility] Name: Elle Man Age: 31 yrs Sex: Female : 1990 Arrival Date: 05/17/2022 Time: 23:54 Bed 16 Private MD: ED Physician Bryant Farias HPI: 05/18 02:38 This 31 yrs old Female presents to ER via EMS with complaints of Headache. rt 02:38 The patient complains of pain to the forehead. The patient describes the headache as rt aching. Onset: The symptoms/episode began/occurred today. Associated signs and symptoms: Pertinent positives: nausea. Severity of symptoms: At its worst the pain was moderate. Patient with reported history of viral meningitis presents to the ED with recurrence of the headache. Patient was seen in the ED yesterday, had improvement of the headache with some morphine. States that the symptoms have returned tonight. She states the symptoms are exactly consistent with when she had viral meningitis in the past. Reports some nausea and photophobia, denies other acute complaints at this time. Symptoms are moderate in severity, no other aggravating or alleviating factors.. Historical: - Allergies: 00:07 No Known Allergies; ke1 - PMHx: 00:07 miscarriage; viral meningitis; ke1 - Immunization history:: Client reports having NOT received the Covid vaccine. - Social history:: Smoking status: Patient reports the use of cigarette tobacco products, denies chronic smoking, but will smoke occasionally. - Family history:: not pertinent. ROS: 02:38 Constitutional: Negative for fever, chills, and weight loss, Cardiovascular: Negative rt for chest pain, palpitations, and edema, Respiratory: Negative for shortness of breath, cough, wheezing, and pleuritic chest pain, MS/Extremity: Negative for injury and deformity, Skin: Negative for injury, rash, and discoloration, Psych: Negative for depression, anxiety, suicide ideation, homicidal ideation, and hallucinations. 02:38 Abdomen/GI: Positive for nausea, Negative for abdominal pain. 02:38 Neuro: Positive for headache, Negative for altered mental status. Exam: 02:38 Constitutional: This is a well developed, well nourished patient who is awake, alert, rt and in no acute distress. Head/Face: Normocephalic, atraumatic. Neck: Trachea midline, no thyromegaly or masses palpated, and no cervical lymphadenopathy. Supple, full range of motion without nuchal rigidity, or vertebral point tenderness. No Meningismus. Chest/axilla: Normal chest wall appearance and motion. Nontender with no deformity. No lesions are appreciated. Cardiovascular: Regular rate and rhythm with a normal S1 and S2. No gallops, murmurs, or rubs. Normal PMI, no JVD. No pulse deficits. Respiratory: Lungs have equal breath sounds bilaterally, clear to auscultation and percussion. No rales, rhonchi or wheezes noted. No increased work of breathing, no retractions or nasal flaring. Abdomen/GI: Soft, non-tender, with normal bowel sounds. No distension or tympany. No guarding or rebound. No evidence of tenderness throughout. Skin: Warm, dry with normal turgor. Normal color with no rashes, no lesions, and no evidence of cellulitis. MS/ Extremity: Pulses equal, no cyanosis. Neurovascular intact. Full, normal range of motion. Neuro: Awake and alert, GCS 15, oriented to person, place, time, and situation. Cranial nerves II-XII grossly intact. Motor strength 5/5 in all extremities. Sensory grossly intact. Cerebellar exam normal. Normal gait. Psych: Awake, alert, with orientation to person, place and time. Behavior, mood, and affect are within normal limits. Vital Signs: 05/17 23:55 BP 132 / 91 RA Sitting (auto/reg); Pulse 90 MON; Resp 20 S; Temp 97.8(O); Pulse Ox 100% ds4 on R/A; Weight 90.72 kg; Height 5 ft. 11 in. (180.34 cm); Pain 10/10; 05/18 00:04 Weight 90.72 kg; Height 5 ft. 11 in. (180.34 cm); Pain 10/10; ke1 01:00 Pain 7/10; ke1 01:15 Pain 6/10; ke1 01:45 BP 129 / 89; Pulse 82; Resp 19; Temp 97.6; Pulse Ox 100% ; Pain 2/10; ke1 01:55 Pain 2/10; ke1 00:04 Body Mass Index 27.89 (90.72 kg, 180.34 cm) ke1 MDM: 00:03 Patient medically screened. rt 02:38 Differential diagnosis: intracerebral hemorrhage, meningitis, meningoencephalitis, rt tension headache. Data reviewed: vital signs, nurses notes, old medical records. Test considered but Not performed: Other Details No bleed the labs and CT are indicated as the patient had recent labs, CT scan that were done that were all unremarkable. Patient has stable vital signs, the symptoms do seem to be consistent with prior episodes. Do not believe that repeat imaging is likely show any changes.. External Records Reviewed: Reviewed recent ED study as well as CT scan from yesterday.. Response to treatment: the patient's symptoms have markedly improved after treatment. ED course: She presents to the ED with a headache that is consistent with her prior episode of viral meningitis per the patient's report. She has stable vital signs, no focal neurologic deficits. I did recommend that the patient undergo a lumbar puncture to further evaluate for meningitis. Patient is adamant that she does not wish to have a lumbar puncture be performed. Patient was informed of risks of missed meningitis, has decision-making capacity. We will start antivirals empirically. Patient was instructed to return anytime if she has worsening symptoms or if she changes her mind regarding a lumbar puncture evaluation.. Administered Medications: 00:45 Drug: NS 0.9% 1000 ml Route: IV; Rate: 1 bolus; Site: left hand; tw5 00:45 Drug: Benadryl (diphenhydrAMINE) 25 mg Route: IVP; Site: left hand; tw5 01:54 Follow up: Response: No adverse reaction ke1 00:45 Drug: Reglan (metoCLOPramide) 10 mg Route: IVP; Site: left hand; tw5 01:54 Follow up: Response: No adverse reaction ke1 00:45 Drug: Ketorolac 30 mg Route: IVP; Site: left hand; tw5 01:15 Follow up: Pain 6/10 Adult; Response: Pain is decreased ke1 00:45 Drug: morphine 4 mg Route: IVP; Infused Over: 4 mins; Site: left hand; tw5 01:00 Follow up: Pain 7/10 Adult; Response: Pain is decreased ke1 01:46 Drug: morphine 2 mg Route: IVP; Infused Over: 4 mins; Site: left hand; ke1 01:55 Follow up: Pain 2/10 Adult; Response: Pain is decreased ke1 Disposition Summary: 05/18/22 01:35 Discharge Ordered Location: Home rt Problem: new rt Symptoms: have improved rt Condition: Stable rt Diagnosis - Headache rt Followup: rt - With: Private Physician - When: 2 - 3 days - Reason: Discharge Instructions: - Discharge Summary Sheet rt - General Headache Without Cause rt - Viral Meningitis, Adult rt Forms: - Medication Reconciliation Form rt - Thank You Letter rt - Antibiotic Education rt - Prescription Opioid Use rt Prescriptions: - Acyclovir 400 mg Oral Tablet - take 1 tablet by ORAL route every 8 hours; 30 tablet; Refills: 0, Product rt Selection Permitted Signatures: Jeana Manning tw5 Carrie Lin RN RN ke1 Bryant Farias MD MD rt
--- NOTE | 2022-05-18 01:35 | ER ---
Nurse's Notes [facility] Name: Elle Man Age: 31 yrs Sex: Female : 1990 Arrival Date: 05/17/2022 Time: 23:54 Bed 16 Private MD: Diagnosis: Headache Presentation: 05/18 00:04 Chief complaint: Patient states: Severe headache that is getting worse, unable to tell ke1 when headache did start but states that she was her 2 days ago for the same issue. Coronavirus screen: Vaccine status: Patient reports being unvaccinated. Ebola Screen: No symptoms or risks identified at this time. Risk Assessment: Do you want to hurt yourself or someone else? Patient reports no desire to harm self or others. Onset of symptoms is unknown. 00:04 Method Of Arrival: EMS ke1 00:04 Acuity: [place] 3 ke1 00:07 Initial Sepsis Screen: Does the patient meet any 2 criteria? No. Patient's initial ke1 sepsis screen is negative. Does the patient have a suspected source of infection? No. Patient's initial sepsis screen is negative. Triage Assessment: 00:08 Headache History: The patient has had previous headaches and this one is more severe ke1 than previous episodes. General: Appears uncomfortable, Behavior is crying. Pain: Pain currently is 10 out of 10 on a pain scale. at worst was 10 out of 10 on a pain scale. level that patient reports is acceptable is 4 out of 10 on a pain scale. Noted to be grimacing, moaning. Neuro: Level of Consciousness is awake, alert, Oriented to person, place, time, situation. 00:15 Pain: Also complains of labile emotions. ke1 Historical: - Allergies: 00:07 No Known Allergies; ke1 - PMHx: 00:07 miscarriage; viral meningitis; ke1 - Immunization history:: Client reports having NOT received the Covid vaccine. - Social history:: Smoking status: Patient reports the use of cigarette tobacco products, denies chronic smoking, but will smoke occasionally. - Family history:: not pertinent. Screenin:08 [facility] ED Fall Risk Assessment (Adult) History of falling in the last 3 months, ke1 including since admission No falls in past 3 months (0 pts) Confusion or Disorientation No (0 pts) Intoxicated or Sedated No (0 pts) Impaired Gait No (0 pts) Mobility Assist Device Used No (0 pt) Altered Elimination No (0 pt) Score/Fall Risk Level 0 - 2 = Low Risk. Abuse screen: Denies threats or abuse. Nutritional screening: No deficits noted. Tuberculosis screening: No symptoms or risk factors identified. Vital Signs: 05/17 23:55 BP 132 / 91 RA Sitting (auto/reg); Pulse 90 MON; Resp 20 S; Temp 97.8(O); Pulse Ox 100% ds4 on R/A; Weight 90.72 kg; Height 5 ft. 11 in. (180.34 cm); Pain 10/10; 05/18 00:04 Weight 90.72 kg; Height 5 ft. 11 in. (180.34 cm); Pain 10/10; ke1 01:00 Pain 7/10; ke1 01:15 Pain 6/10; ke1 01:45 BP 129 / 89; Pulse 82; Resp 19; Temp 97.6; Pulse Ox 100% ; Pain 2/10; ke1 01:55 Pain 2/10; ke1 00:04 Body Mass Index 27.89 (90.72 kg, 180.34 cm) ke1 ED Course: 05/17 23:54 Patient arrived in ED. wm 05/18 00:00 Bryant Farias MD is Attending Physician. rt 00:03 Carrie Lin, ISIDRO is Primary Nurse. ke1 00:07 Triage completed. ke1 00:09 Arm band placed on right wrist. ke1 00:15 Bed in low position. Call light in reach. Side rails up X 1. ke1 00:45 Inserted saline lock: 22 gauge in left hand, using aseptic technique. tw5 01:55 No provider procedures requiring assistance completed. ke1 01:57 IV discontinued. ke1 Administered Medications: 00:45 Drug: NS 0.9% 1000 ml Route: IV; Rate: 1 bolus; Site: left hand; tw5 00:45 Drug: Benadryl (diphenhydrAMINE) 25 mg Route: IVP; Site: left hand; tw5 01:54 Follow up: Response: No adverse reaction ke1 00:45 Drug: Reglan (metoCLOPramide) 10 mg Route: IVP; Site: left hand; tw5 01:54 Follow up: Response: No adverse reaction ke1 00:45 Drug: Ketorolac 30 mg Route: IVP; Site: left hand; tw5 01:15 Follow up: Pain 6/10 Adult; Response: Pain is decreased ke1 00:45 Drug: morphine 4 mg Route: IVP; Infused Over: 4 mins; Site: left hand; tw5 01:00 Follow up: Pain 7/10 Adult; Response: Pain is decreased ke1 01:46 Drug: morphine 2 mg Route: IVP; Infused Over: 4 mins; Site: left hand; ke1 01:55 Follow up: Pain 2/10 Adult; Response: Pain is decreased ke1 Medication: 01:56 VIS not applicable for this client. ke1 Outcome: 01:35 Discharge ordered by . rt 01:56 Discharged to home ambulatory. ke1 01:56 Condition: good 01:56 Discharge instructions given to patient. 01:58 Patient left the ED. ke1 Signatures: Joce Tovar ds4 Virginie Cabral Jeana Manning tw5 Carrie Lin RN RN ke1 Bryant Farias MD MD rt
[2022-05-18] MEDS ORDERED: MORPHINE 2 MG/ML SYR ONE (01:48)
[2022-05-18 04:18] VITALS: O2SAT 100
[2022-05-18 04:30] VITALS: BP 129/89; TEMP 97.6
== END 2022-05-18 01:58 | disposition home or self-care (01) ==
LOC: ER 23:52
DX: R51.9 Headache, unspecified (principal); F17.210 Nicotine dependence, cigarettes, uncomplicated
CPT/HCPCS: 96375; 96374; 99283; J2765; J1200; J2270; J7030